=== PATIENT | female | born 1960 | race African-American/Black ===

== ENCOUNTER 2017-01-03 13:28 | Inpatient (IN) | payer MEDICAID ==
[~2017-01-03] VITALS: Ht 162.6 cm; Wt 97.2 kg
--- NOTE | 2017-01-03 13:43 | PHYS DOC ---
Past Medical History Past Medical History: Anxiety, Constipation, GERD, High Cholesterol, Hypertension, Hypothyroid, Schizophrenia Past Surgical History: No Surgical History Alcohol Use: None Drug Use: None Adult General Chief Complaint Chief Complaint: ALTERED MENTAL STATUS HPI HPI Patient is a 56 year old female who presents with complaint of a syncopal episode that took place prior to arrival. The patient was brought to the emergency department by EMS after patient was found to be unresponsive while at lunch less than 1 hour prior to arrival. Patient came from her skilled nursing where she is currently cared for. The patient was at her baseline mental status immediately prior to the episode. Patient states that she remembers being at lunch but does not remember anything until she came to in the EMS vehicle just prior to arrival. Patient denied any associated chest pain with her symptoms. Patient states that she feels tired but knows where she is at this time. Patient states that she had similar episodes when she was very young but has not had anything like this happened in several years. Review of Systems Review of Systems Constitutional: Generalized fatigue, denies fever or chills [] Eyes: Denies change in visual acuity, redness, or eye pain [] HENT: Denies nasal congestion or sore throat [] Respiratory: Denies cough or shortness of breath [] Cardiovascular: Syncope, denies chest pain or edema [] GI: Denies abdominal pain, nausea, vomiting, bloody stools or diarrhea [] : Denies dysuria or hematuria [] Musculoskeletal: Denies back pain or joint pain [] Integument: Denies rash or skin lesions [] Neurologic: Denies headache, focal weakness or sensory changes [] Current Medications Current Medications Current Medications Medications (Trade) Dose Ordered Sig/Horace Start Time Stop Time Status Last Admin Dose Admin Sodium Chloride 1,000 ml @ 1,000 mls/hr 1X ONCE 01/03/17 14:30 01/03/17 15:29 DC 01/03/17 14:17 1,000 MLS/HR Allergies Allergies Allergies Coded Allergies Type Severity Reaction Last Updated Verified haloperidol Allergy Intermediate UNKNOWN 11/09/15 Yes iron dextran complex Allergy Intermediate UNKNOWN 11/09/15 Yes Physical Exam Physical Exam Constitutional: Alert, afebrile, no acute distress. [] HENT: Normocephalic, atraumatic, bilateral external ears normal, oropharynx moist, no oral exudates, nose normal. [] Eyes: PERRLA, chronic strabismus present, conjunctiva normal, no discharge. [] Neck: Normal range of motion, no tenderness, supple, no stridor. [] Cardiovascular:Heart rate regular rhythm, no murmur [] Lungs & Thorax: Bilateral breath sounds clear to auscultation [] Abdomen: Bowel sounds normal, soft, no tenderness, no masses, no pulsatile masses. [] Skin: Warm, dry, no erythema, no rash. [] Back: No tenderness, no CVA tenderness. [] Extremities: No tenderness, no cyanosis, no clubbing, ROM intact, no edema. [] Neurologic: Alert and oriented X 3, normal motor function, normal sensory function, no focal deficits noted. [] Current Patient Data Vital Signs Vital Signs Date Time Temp Pulse Resp B/P (MAP) Pulse Ox O2 Delivery O2 Flow Rate FiO2 01/03/17 13:49 98.6 90 16 84/70 (75) 97 Room Air 98.6 Lab Values Laboratory Tests Test 01/03/17 14:14 White Blood Count 3.7 x10^3/uL (4.0-11.0) L Red Blood Count 4.62 x10^6/uL (3.50-5.40) Hemoglobin 10.5 g/dL (12.0-15.5) L Hematocrit 33.9 % (36.0-47.0) L Mean Corpuscular Volume 73 fL (79-100) L Mean Corpuscular Hemoglobin 23 pg (25-35) L Mean Corpuscular Hemoglobin Concent 31 g/dL (31-37) Red Cell Distribution Width 16.5 % (11.5-14.5) H Platelet Count 152 x10^3/uL (140-400) Neutrophils (%) (Auto) 62 % (31-73) Lymphocytes (%) (Auto) 25 % (24-48) Monocytes (%) (Auto) 13 % (0-9) H Eosinophils (%) (Auto) 0 % (0-3) Basophils (%) (Auto) 0 % (0-3) Neutrophils # (Auto) 2.3 x10^3uL (1.8-7.7) Lymphocytes # (Auto) 0.9 x10^3/uL (1.0-4.8) L Monocytes # (Auto) 0.5 x10^3/uL (0.0-1.1) Eosinophils # (Auto) 0.0 x10^3/uL (0.0-0.7) Basophils # (Auto) 0.0 x10^3/uL (0.0-0.2) Platelet Estimate Pending Urine Collection Type U cath Urine Color Patrica Urine Clarity Clear Urine pH 5.5 Urine Specific [place] 1.020 Urine Protein 100 mg/dL (NEG-TRACE) Urine Glucose (UA) Negative mg/dL (NEG) Urine Ketones (Stick) Trace mg/dL (NEG) Urine Blood Large (NEG) Urine Nitrite Negative (NEG) Urine Bilirubin Small (NEG) Urine Urobilinogen Dipstick 0.2 mg/dL (0.2 mg/dL) Urine Leukocyte Esterase Small (NEG) Urine RBC >40 /HPF (0-2) Urine WBC 1-4 /HPF (0-4) Urine Squamous Epithelial Cells Mod /LPF Urine Transitional Epithelial Cells Few /LPF Urine Bacteria 0 /HPF (0-FEW) Urine Hyaline Casts Moderate /HPF Urine Mucus Mod /LPF Sodium Level 140 mmol/L (136-145) Potassium Level 4.3 mmol/L (3.5-5.1) Chloride Level 108 mmol/L (98-107) H Carbon Dioxide Level 23 mmol/L (21-32) Anion Gap 9 (6-14) Blood Urea Nitrogen 23 mg/dL (7-20) H Creatinine 1.9 mg/dL (0.6-1.0) H Estimated GFR (Cockcroft-Gault) 33.1 BUN/Creatinine Ratio 12 (6-20) Glucose Level 93 mg/dL (70-99) Calcium Level 9.2 mg/dL (8.5-10.1) Magnesium Level 1.5 mg/dL (1.8-2.4) L Total Bilirubin 0.1 mg/dL (0.2-1.0) L Aspartate Amino Transferase (AST) 11 U/L (15-37) L Alanine Aminotransferase (ALT) 12 U/L (14-59) L Alkaline Phosphatase 57 U/L (46-116) Creatine Kinase 90 U/L (26-192) Creatine Kinase MB (Mass) < 0.5 ng/mL (0.0-3.6) Creatine Kinase MB Relative Index 0.6 % (0-4) Troponin I Quantitative < 0.017 ng/mL (0.000-0.055) Total Protein 6.8 g/dL (6.4-8.2) Albumin 2.5 g/dL (3.4-5.0) L Albumin/Globulin Ratio 0.6 (1.0-1.7) L Laboratory Tests 01/03/17 14:14 Laboratory Tests 01/03/17 14:14 EKG EKG Interpreted by me: Heart rate 89, sinus rhythm, normal intervals, normal axis, no acute ST/T-wave abnormalities present [] Radiology/Procedures Radiology/Procedures [facility] [address] [place] [address] IMAGING REPORT Signed PATIENT: AVI VILLEGAS ACCOUNT: [id number] : 1960 LOCATION: ER AGE: 56 SEX: F EXAM STATUS: PRE ER ORD. PHYSICIAN: CRISTINE ALDANA MD REASON: syncope PROCEDURE: PORTABLE CHEST 1V Indication syncopal episode. A single view of the chest was obtained. No previous imaging of the chest is available. The heart and pulmonary vessels are within normal limits. There is no focal infiltrate. There is no pneumothorax. Bony structures appear grossly intact. IMPRESSION: No acute or focal process is seen in the chest DICTATED and SIGNED BY: AMARA WHITE MD DATE: 01/03/17 1424 CC: CRISTINE ALDANA MD; SAGAR CHURCH [] Course & Med Decision Making Course & Med Decision Making Pertinent Labs and Imaging studies reviewed. (See chart for details) Patient was given IV fluids in the emergency department. Patient was found to have decreased magnesium levels and was supplemented with IV magnesium. Patient also found to have renal insufficiency. The patient had a significant syncopal episode with prolonged loss of consciousness with no prior history of heart trouble. The patient will need admission to the hospital for continued monitoring and cardiology consult. I spoke with Dr. Leroy who accepted care patient in hospital. Dragon Disclaimer Dragon Disclaimer This electronic medical record was generated, in whole or in part, using a voice recognition dictation system. Departure Departure Impression: Primary Impression: Syncope Additional Impressions: Hypomagnesemia Renal insufficiency Severe protein-calorie malnutrition Disposition: ADMITTED INPATIENT Admitting Physician: Jessica Leroy Condition: STABLE Referrals: SAGAR CHURCH (PCP) Problem Qualifiers Primary Impression: Syncope Syncope type: unspecified Qualified Codes: R55 - Syncope and collapse CRISTINE ALDANA MD Jan 03, 2017 13:43
[2017-01-03 14:27] LABS: BASO % 0 % (0-3); EOS % 0 % (0-3); HEMATOCRIT 33.9 % (36.0-47.0); HEMOGLOBIN 10.5 g/dL (12.0-15.5); LYMPH # 0.9 x10^3/uL (1.0-4.8); LYMPH % 25 % (24-48); MEAN CORPUSCULAR HEMOGLOBIN 23 pg (25-35); MEAN CORPUSCULAR HGB CONC 31 g/dL (31-37); MEAN CORPUSCULAR VOLUME 73 fL (79-100); MONO % 13 % (0-9); NEUT % 62 % (31-73); PLATELET COUNT 152 x10^3/uL (140-400); RED BLOOD COUNT 4.62 x10^6/uL (3.50-5.40); RED CELL DISTRIBUTION WIDTH 16.5 % (11.5-14.5); WHITE BLOOD COUNT 3.7 x10^3/uL (4.0-11.0)
--- NOTE | 2017-01-03 14:28 | RAD ---
Indication syncopal episode. A single view of the chest was obtained. No previous imaging of the chest is available. The heart and pulmonary vessels are within normal limits. There is no focal infiltrate. There is no pneumothorax. Bony structures appear grossly intact. IMPRESSION: No acute or focal process is seen in the chest
[2017-01-03] MEDS ORDERED: IV NORMAL SALINE 1000ML BAG 1,000 ML IV ONE (14:30)
--- NOTE | 2017-01-03 14:41 | EKG ---
[facility] [address] [place] [address] Test Date: 2017-01-03 Test Time: 13:36:43 Pat Name: AVI VILLEGAS Department: Room: Gender: F Furnace Maintenance: : 1960 Requested By: CRISTINE ALDANA Order Number: [id number] Reading MD: Measurements Intervals [place] Rate: 89 P: 69 ND: 136 QRS: 69 QRSD: 72 T: 34 QT: 344 QTc: 420 Interpretive Statements SINUS RHYTHM LEFT ATRIAL ABNORMALITY QRS(T) CONTOUR ABNORMALITY CONSISTENT WITH ANTEROSEPTAL INFARCT AGE UNDETERMINED RI6.01 Unconfirmed report No previous ECG available for comparison
[2017-01-03 14:44] LABS: CALCIUM 9.2 mg/dL (8.5-10.1); CREATININE 1.9 mg/dL (0.6-1.0); GFR 33.1; POTASSIUM 4.3 mmol/L (3.5-5.1)
[2017-01-03 14:48] LABS: BILIRUBIN,URINE SMALL (NEG); GLUCOSE,URINE NEGATIVE (NEG); NITRITE,URINE NEGATIVE (NEG); PH,URINE 5.5; PROTEIN,URINE 100 mg/dL (NEG-TRACE); UROBILINOGEN,URINE 0.2 mg/dL (0.2 mg/dL)
[2017-01-03 14:50] LABS: ALBUMIN 2.5 g/dL (3.4-5.0); ALBUMIN/GLOBULIN RATIO 0.6 (1.0-1.7); MAGNESIUM 1.5 mg/dL (1.8-2.4); TOTAL BILIRUBIN 0.1 mg/dL (0.2-1.0); TOTAL PROTEIN 6.8 g/dL (6.4-8.2)
[2017-01-03 14:58] LABS: BACTERIA,URINE 0 /HPF (0-FEW); CREATINE KINASE 90 U/L (26-192); RBC,URINE >40 /HPF (0-2); SQUAMOUS EPITHELIAL CELL,UR MOD /LPF
[2017-01-03 15:03] LABS: CKMB MASS < 0.5 ng/mL (0.0-3.6)
[2017-01-03] MEDS ORDERED: ACETAMINOPHEN 325 MG TABLET. PO PRN ×2 (16:30→18:30)
[2017-01-03] MEDS ORDERED: MAGNESIUM SULFATE 1GM 100 ML IV ONE (16:30)
[2017-01-03] MEDS ORDERED: ONDANSETRON PF 4 MG/2 ML VIAL. IV PRN ×2 (16:30)
--- NOTE | 2017-01-03 16:40 | PDOC1 ---
History and Physical Date of Admission Date of Admission DATE: 01/03/17 TIME: 16:30 Identification/Chief Complaint Chief Complaint passed out while eating lemon chicken at SNU Problems: Source Source: Caregiver, Chart review, Patient History of Present Illness History of Present Illness 56 y.o AA female, with exotropia since childhood yrs, Resident of [facility], was eating lemon chicken for lunch today then passed out,. BP was 88/56 by EMS in the field,was barely responsive, they had to sternal rub and put LMA mask, and that's when the device seemed to gag her and she regained consciousness. She is now eating a sandwich at ER, lung sounds sounds fine, NObody bedside, not best historian but can be reliable, MIght have happened before? but not in the background of a meal, looking at meds on AEds. MEntions hx of SZ, unable to describe SZ activity, but sounds like there is LOC when this happens, last episode maybe a yr ago?? again not the best historian, LAbs look ok Denies aura or any sxs pre syncope, claims when she woke to, she was fuzzy and already in ambulance, NO headache, etc currently Past Medical History Cardiovascular: Syncope Pulmonary: Bronchitis CENTRAL NERVOUS SYSTEM: Seizure Past Surgical History Past Surgical History: No pertinent history Family History Family History: Family History Unknown Social History Smoke: No ALCOHOL: none Drugs: None Current Problem List Problem List Problems Medical Problems: (1) Hypomagnesemia Status: Acute (2) Renal insufficiency Status: Acute (3) Severe protein-calorie malnutrition Status: Acute Problems: Current Medications Current Medications Current Medications Sodium Chloride 1,000 ml @ 1,000 mls/hr 1X ONCE IV Last administered on t 14:17; Start 01/03/17 at 14:30; Stop 01/03/17 at 15:29; Status DC Magnesium Sulfate/ Dextrose 100 ml @ 100 mls/hr 1X ONCE IV ; Start 01/03/17 at 16:30; Stop 01/03/17 at 17:29 Ondansetron HCl (Zofran) 4 mg PRN Q8HRS PRN IV NAUSEA/VOMITING; Start 01/03/17 at 16:30; Stop 01/04/17 at 16:29 Sodium Chloride 1,000 ml @ 100 mls/hr Q10H IV ; Start 01/03/17 at 16:21; Stop at 16:20 Acetaminophen (Tylenol) 650 mg PRN Q4HRS PRN PO FEVER; Start 01/03/17 at 16:30; Stop 01/04/17 at 16:29 Allergies Allergies: Coded Allergies: haloperidol (Verified Allergy, Intermediate, UNKNOWN, 11/09/15) iron dextran complex (Verified Allergy, Intermediate, UNKNOWN, 11/09/15) ROS Review of System denies 14 pt system, reviewed Physical Exam General: Alert, Oriented X3, Cooperative, No acute distress HEENT: Other (RT exotropia, external and upward) Lungs: Clear to auscultation, Normal air movement Heart: S1S2, RRR, no thrills, no rubs, no gallops, murmurs Cardiovascular: S1, S2 Breasts: Normal, Rt breast nml w/o mass, Lt breast nml w/o mass, Nipples normal Abdomen: Normal bowel sounds, Soft, No tenderness, No hepatosplenomegaly, No masses Rectal Exam: not examined PELVIC: Nml ext genitalia Extremities: No clubbing, No cyanosis, No edema, Normal pulses, No tenderness/ swelling Skin: No rashes, No breakdown, No significant lesion Neuro: Normal gait, Normal speech, Strength at 5/5 X4 ext, Normal tone, Sensation intact, Cranial nerves 3-12 NL, Reflexes 2+ Psych/Mental Status: Mental status NL, Mood NL Vitals Vitals Vital Signs Date Time Temp Pulse Resp B/P (MAP) Pulse Ox O2 Delivery O2 Flow Rate FiO2 01/03/17 13:49 98.6 90 16 84/70 (75) 97 Room Air 98.6 Labs Labs Laboratory Tests Test 01/03/17 14:14 White Blood Count 3.7 x10^3/uL (4.0-11.0) Red Blood Count 4.62 x10^6/uL (3.50-5.40) Hemoglobin 10.5 g/dL (12.0-15.5) Hematocrit 33.9 % (36.0-47.0) Mean Corpuscular Volume 73 fL (79-100) Mean Corpuscular Hemoglobin 23 pg (25-35) Mean Corpuscular Hemoglobin Concent 31 g/dL (31-37) Red Cell Distribution Width 16.5 % (11.5-14.5) Platelet Count 152 x10^3/uL (140-400) Neutrophils (%) (Auto) 62 % (31-73) Lymphocytes (%) (Auto) 25 % (24-48) Monocytes (%) (Auto) 13 % (0-9) Eosinophils (%) (Auto) 0 % (0-3) Basophils (%) (Auto) 0 % (0-3) Neutrophils # (Auto) 2.3 x10^3uL (1.8-7.7) Lymphocytes # (Auto) 0.9 x10^3/uL (1.0-4.8) Monocytes # (Auto) 0.5 x10^3/uL (0.0-1.1) Eosinophils # (Auto) 0.0 x10^3/uL (0.0-0.7) Basophils # (Auto) 0.0 x10^3/uL (0.0-0.2) Urine Collection Type U cath Urine Color Patrica Urine Clarity Clear Urine pH 5.5 Urine Specific [place] 1.020 Urine Protein 100 mg/dL (NEG-TRACE) Urine Glucose (UA) Negative mg/dL (NEG) Urine Ketones (Stick) Trace mg/dL (NEG) Urine Blood Large (NEG) Urine Nitrite Negative (NEG) Urine Bilirubin Small (NEG) Urine Urobilinogen Dipstick 0.2 mg/dL (0.2 mg/dL) Urine Leukocyte Esterase Small (NEG) Urine RBC >40 /HPF (0-2) Urine WBC 1-4 /HPF (0-4) Urine Squamous Epithelial Cells Mod /LPF Urine Transitional Epithelial Cells Few /LPF Urine Bacteria 0 /HPF (0-FEW) Urine Hyaline Casts Moderate /HPF Urine Mucus Mod /LPF Sodium Level 140 mmol/L (136-145) Potassium Level 4.3 mmol/L (3.5-5.1) Chloride Level 108 mmol/L (98-107) Carbon Dioxide Level 23 mmol/L (21-32) Anion Gap 9 (6-14) Blood Urea Nitrogen 23 mg/dL (7-20) Creatinine 1.9 mg/dL (0.6-1.0) Estimated GFR (Cockcroft-Gault) 33.1 BUN/Creatinine Ratio 12 (6-20) Glucose Level 93 mg/dL (70-99) Calcium Level 9.2 mg/dL (8.5-10.1) Magnesium Level 1.5 mg/dL (1.8-2.4) Total Bilirubin 0.1 mg/dL (0.2-1.0) Aspartate Amino Transf (AST/SGOT) 11 U/L (15-37) Alanine Aminotransferase (ALT/SGPT) 12 U/L (14-59) Alkaline Phosphatase 57 U/L (46-116) Creatine Kinase 90 U/L (26-192) Creatine Kinase MB (Mass) < 0.5 ng/mL (0.0-3.6) Creatine Kinase MB Relative Index 0.6 % (0-4) Troponin I Quantitative < 0.017 ng/mL (0.000-0.055) Total Protein 6.8 g/dL (6.4-8.2) Albumin 2.5 g/dL (3.4-5.0) Albumin/Globulin Ratio 0.6 (1.0-1.7) Laboratory Tests Test 01/03/17 14:14 White Blood Count 3.7 x10^3/uL (4.0-11.0) Red Blood Count 4.62 x10^6/uL (3.50-5.40) Hemoglobin 10.5 g/dL (12.0-15.5) Hematocrit 33.9 % (36.0-47.0) Mean Corpuscular Volume 73 fL (79-100) Mean Corpuscular Hemoglobin 23 pg (25-35) Mean Corpuscular Hemoglobin Concent 31 g/dL (31-37) Red Cell Distribution Width 16.5 % (11.5-14.5) Platelet Count 152 x10^3/uL (140-400) Neutrophils (%) (Auto) 62 % (31-73) Lymphocytes (%) (Auto) 25 % (24-48) Monocytes (%) (Auto) 13 % (0-9) Eosinophils (%) (Auto) 0 % (0-3) Basophils (%) (Auto) 0 % (0-3) Neutrophils # (Auto) 2.3 x10^3uL (1.8-7.7) Lymphocytes # (Auto) 0.9 x10^3/uL (1.0-4.8) Monocytes # (Auto) 0.5 x10^3/uL (0.0-1.1) Eosinophils # (Auto) 0.0 x10^3/uL (0.0-0.7) Basophils # (Auto) 0.0 x10^3/uL (0.0-0.2) Urine Collection Type U cath Urine Color Patrica Urine Clarity Clear Urine pH 5.5 Urine Specific [place] 1.020 Urine Protein 100 mg/dL (NEG-TRACE) Urine Glucose (UA) Negative mg/dL (NEG) Urine Ketones (Stick) Trace mg/dL (NEG) Urine Blood Large (NEG) Urine Nitrite Negative (NEG) Urine Bilirubin Small (NEG) Urine Urobilinogen Dipstick 0.2 mg/dL (0.2 mg/dL) Urine Leukocyte Esterase Small (NEG) Urine RBC >40 /HPF (0-2) Urine WBC 1-4 /HPF (0-4) Urine Squamous Epithelial Cells Mod /LPF Urine Transitional Epithelial Cells Few /LPF Urine Bacteria 0 /HPF (0-FEW) Urine Hyaline Casts Moderate /HPF Urine Mucus Mod /LPF Sodium Level 140 mmol/L (136-145) Potassium Level 4.3 mmol/L (3.5-5.1) Chloride Level 108 mmol/L (98-107) Carbon Dioxide Level 23 mmol/L (21-32) Anion Gap 9 (6-14) Blood Urea Nitrogen 23 mg/dL (7-20) Creatinine 1.9 mg/dL (0.6-1.0) Estimated GFR (Cockcroft-Gault) 33.1 BUN/Creatinine Ratio 12 (6-20) Glucose Level 93 mg/dL (70-99) Calcium Level 9.2 mg/dL (8.5-10.1) Magnesium Level 1.5 mg/dL (1.8-2.4) Total Bilirubin 0.1 mg/dL (0.2-1.0) Aspartate Amino Transf (AST/SGOT) 11 U/L (15-37) Alanine Aminotransferase (ALT/SGPT) 12 U/L (14-59) Alkaline Phosphatase 57 U/L (46-116) Creatine Kinase 90 U/L (26-192) Creatine Kinase MB (Mass) < 0.5 ng/mL (0.0-3.6) Creatine Kinase MB Relative Index 0.6 % (0-4) Troponin I Quantitative < 0.017 ng/mL (0.000-0.055) Total Protein 6.8 g/dL (6.4-8.2) Albumin 2.5 g/dL (3.4-5.0) Albumin/Globulin Ratio 0.6 (1.0-1.7) VTE Prophylaxis Ordered VTE Prophylaxis Devices: Yes VTE Pharmacological Prophylaxi: Yes Assessment/Plan Assessment/Plan 1. Syncope and collapse, likely vagal after a meal, r.o other potential causes ( SZ, arrhythmia etc) 2. Sz hx on AED 3. SNU resident 4. Obesity BMI 43 5, MOD PCM 6. HYpotension, transient post syncope PLAN: Admit Would check a baseline CT head I am awaiting home meds, noteworthy to check levels of AEDs, if I get to see her home meds, make sure they are therapeutic PT/OT Cards consulted for syncope work up WOF aspiration signs, so far none of that, so I am ok with reg diet Seen at ER 2, dw ER VIRGINIA Valera MD Jan 03, 2017 16:40
[2017-01-03] MEDS: IV NORMAL SALINE 1000ML BAG 1,000 ML IV SCH ×2 (16:44→22:09)
[2017-01-03] MEDS ORDERED: MAGNESIUM SULFATE 2GM 50 ML IV ONE (16:45)
[2017-01-03 16:53] LABS: ANISOCYTOSIS SLIGHT; HYPOCHROMIA MOD; MICROCYTOSIS SLIGHT; PLT ESTIMATE ADEQUATE (ADEQUATE); POLYCHROMASIA SLIGHT
--- NOTE | 2017-01-03 17:13 | RAD ---
EXAM: CT head without contrast HISTORY: SYNCOPE, SEIZURE HX. PREVIOUS 11/09/15. COMPARISON: November 09, 2015 TECHNIQUE: Computed tomographic images of the head were obtained without contrast. RS compliance statement: One or more of the following individualized dose reduction techniques were utilized for this examination: 1. Automated exposure control 2. Adjustment of the mA and/or kV according to patient size 3. Use of iterative reconstruction technique FINDINGS: There is no acute intracranial process identified. Specifically, there are no intracranial blood products, extra-axial fluid collections, mass effect or midline shift. Ventricles and basilar cisterns are maintained. The visualized portions of the orbits, paranasal sinuses and mastoid air cells are unremarkable. No suspicious calvarial lesion is seen. IMPRESSION: No acute intracranial findings. Electronically signed by: Leanna Torre MD (01/03/2017 5:10 PM) [facility]
[2017-01-03 17:30] VITALS: BP 148/99
[2017-01-03 17:55] VITALS: BP 148/99
[2017-01-03] MEDS ORDERED: MAGNESIUM HYDROXIDE 2,400 MG/30 ML ORAL.SUSP. PO PRN (18:30)
[2017-01-03] MEDS ORDERED: clonazePAM 1 MG TABLET PO PRN (18:30)
[2017-01-03] MEDS ORDERED: CLON1TAB3 PO (18:38)
[2017-01-03] MEDS ORDERED: LEVO75TA5 PO (18:38)
[2017-01-03] MEDS ORDERED: ASPI-630 PO (18:38)
[2017-01-03] MEDS ORDERED: GUAI-66 PO (18:38)
[2017-01-03] MEDS ORDERED: ACET325T9 PO (18:38)
[2017-01-03] MEDS ORDERED: CLON2TAB2 PO (18:38)
[2017-01-03] MEDS ORDERED: LOPE2TAB56 PO (18:46)
[2017-01-03] MEDS ORDERED: RISP4TAB35 PO (18:46)
[2017-01-03] MEDS ORDERED: MULT1TAB52 PO (18:46)
[2017-01-03] MEDS ORDERED: MAGN400O7 PO (18:46)
[2017-01-03] MEDS ORDERED: SIME125C65 PO (18:46)
[2017-01-03] MEDS ORDERED: TOPI100T42 PO (18:47)
[2017-01-03] MEDS ORDERED: VALP250S4 PO (18:48)
[2017-01-03] MEDS ORDERED: FAMO-63 PO (18:51)
[2017-01-03] MEDS ORDERED: RISP37.5 IM (18:51)
[2017-01-03] MEDS ORDERED: MAG355OR11 PO (18:57)
[2017-01-03] MEDS ORDERED: MAG HYDROX/ALUMINUM HYD/SIMETH 30 ML ORAL.SUSP PO PRN (19:15)
[2017-01-03 19:25] VITALS: BP 150/87
[2017-01-03] MEDS ORDERED: LOPERAMIDE 2 MG CAPSULE PO PRN (19:30)
[2017-01-03] MEDS ORDERED: NYSTATIN TOPICAL POWDER 15GM BOTTLE. TP PRN (19:30)
[2017-01-03] MEDS: VALPROIC ACID (AS SODIUM SALT) 250 MG/5 ML SOLUTION. PO SCH (22:05)
[2017-01-03] MEDS: risperiDONE 1 MG TABLET. PO SCH (22:05)
[2017-01-03] MEDS: TOPIRAMATE 100 MG TABLET. PO SCH (22:06)
[2017-01-03] MEDS: clonazePAM 1 MG TABLET PO SCH (22:06)
[2017-01-03] MEDS: ENOXAPARIN 40 MG/0.4 ML SYRINGE. SQ SCH (22:07)
[2017-01-03 23:30] VITALS: BP 148/85
[2017-01-04 03:30] VITALS: BP 151/65
--- NOTE | 2017-01-04 04:14 | ACF ---
Admission Forms Criteria SYNCOPE Clinical Indications for Admission to Inpatient Care ( Place 'X' for any and all applicable criteria): Admission is indicated for syncope and ANY ONE of the following (1)(2)(3)(4)(5) (6)(7) : [X]I. Inpatient admission required rather than observation care (Also use Syncope: Observation Care Criteria as appropriate) because of ANY ONE of the following: [ ]a) Hemodynamic instability that is severe or persistent [ ]b) Cardiac arrhythmias of immediate concern identified or strongly suspected (eg, needs electrophysiologic study) [ ]c) Acute coronary syndrome identified (Also use Myocardial Infarction or Angina Criteria form ) [ ]d) Structural cardiac disorder (eg, aortic stenosis) suspected as cause that requires immediate correction [ ]e) Respiratory symptoms (eg, dyspnea, tachypnea) that are severe or persistent [X]f) Neurologic signs or symptoms that are severe or persistent ( eg, stroke, seizures, altered mental status) [ ]g) Severe electrolyte abnormalities requiring inpatient care [ ]h) Supplemental oxygen or respiratory treatment for over 24 hrs that are performable only in acute inpatient setting [ ]i) IV fluid to replace significant ongoing (eg, for over 24 hrs ) losses (>3 L/m2 per day) [ ]j) Continuous intravenous infusion of anticoagulation, platelet inhibitor, vasoactive, or antiarrhythmic medication(15)(16) [ ]k) Pulmonary artery catheter monitoring [ ]l) Temporary pacemaker placement(17) [ ]m) Emergent cardioversion(18) [ ]n) Other conditions, treatment or monitoring requiring inpatient admission [ ]II. Suspicion of imminently dangerous cause (eg, rare causes like pericardial tamponade, pulmonary embolism) [ ]III. Syncope causing severe injury requiring hospitalization Extended stay beyond goal length of stay may be needed for(28) [ ]a) Dangerous arrhythmia(15)(23)(27)(29) [ ]b) Myocardial ischemia [ ]c) Seizure disorder [ ]d) Syncope-related injuries The original [employer] content created by [employer] has been revised. The portions of the content which have been revised are identified through the use of italic text or in bold, and [employer] has neither reviewed nor approved the modified material. All other unmodified content is copyright [employer]: turn off the lights. Please see references footnoted in the original [facility] edition 2016 Admission Criteria Met?: Yes LUIS MIGUEL HILLMAN Jan 04, 2017 04:14
[2017-01-04 04:52] LABS: BASO % 0 % (0-3); EOS % 0 % (0-3); HEMATOCRIT 33.4 % (36.0-47.0); HEMOGLOBIN 10.2 g/dL (12.0-15.5); LYMPH # 1.6 x10^3/uL (1.0-4.8); LYMPH % 44 % (24-48); MEAN CORPUSCULAR HEMOGLOBIN 23 pg (25-35); MEAN CORPUSCULAR HGB CONC 31 g/dL (31-37); MEAN CORPUSCULAR VOLUME 75 fL (79-100); MONO % 9 % (0-9); NEUT % 47 % (31-73); PLATELET COUNT 143 x10^3/uL (140-400); RED BLOOD COUNT 4.47 x10^6/uL (3.50-5.40); WHITE BLOOD COUNT 3.7 x10^3/uL (4.0-11.0)
[2017-01-04 05:06] LABS: CREATININE 1.6 mg/dL (0.6-1.0); GFR 40.3; POTASSIUM 4.9 mmol/L (3.5-5.1)
[2017-01-04] MEDS: LEVOTHYROXINE 75 MCG TABLET PO SCH (06:04)
[2017-01-04 07:00] VITALS: BP 154/84
[2017-01-04] MEDS: FAMOTIDINE 20 MG TABLET. PO SCH (09:28)
[2017-01-04] MEDS: risperiDONE 1 MG TABLET. PO SCH ×2 (09:28→21:27)
[2017-01-04] MEDS: TOPIRAMATE 100 MG TABLET. PO SCH ×2 (09:28→21:27)
[2017-01-04] MEDS: IV NORMAL SALINE 1000ML BAG 1,000 ML IV SCH (09:28)
[2017-01-04] MEDS: NYSTATIN TOPICAL POWDER 15GM BOTTLE. TP SCH (09:28)
[2017-01-04] MEDS: ASPIRIN CHEWABLE 81 MG TABLET. PO SCH (09:29)
[2017-01-04] MEDS: MULTIVITAMIN with MINERAL TABLET. PO SCH (09:29)
[2017-01-04] MEDS: ENOXAPARIN 40 MG/0.4 ML SYRINGE. SQ SCH (09:31)
--- NOTE | 2017-01-04 09:32 | PDOC2 ---
CAROLE ENGLAND FLOORING HELPER 01/04/17 0932: CARDIAC CONSULT DATE OF CONSULT Date of Consult DATE: 01/04/17 TIME: 09:24 REASON FOR CONSULT Reason for Consult: Syncope REFERRING PHYSICIAN Referring Physician: Dr. Kaba SOURCE Source: Chart review, Patient HISTORY OF PRESENT ILLNESS HISTORY OF PRESENT ILLNESS This is a 56 yo female who presented from nursing facility secondary to a syncopal event. Had lemon pepper chicken with garlic for lunch. Reports " falling out after eating because of the garlic." Was sitting at the dinner table. States she cannot have garlic because it makes her "pass out." EMS was called by facility staff. Patient denies experiencing any chest pain, palpitations, dizziness, diaphoresis, or nausea/vomiting. PAST MEDICAL HISTORY Cardiovascular: HTN, Hyperlipidemia Pulmonary: No pertinent hx CENTRAL NERVOUS SYSTEM: Other (extrapyramidal syndrome, intellectual disability ) GI: GERD Heme/Onc: No pertinent hx Hepatobiliary: No pertinent hx Psych: Anxiety, Depression, Schizophrenia Rheumatologic: No pertinent hx Infectious disease: No pertinent hx ENT: No pertinent hx Renal/: No pertinent hx Endocrine: Hypothyroidism Dermatology: No pertinent hx PAST SURGICAL HISTORY Past Surgical History: No pertinent history FAMILY HISTORY Family History: Family History Unknown SOCIAL HISTORY Smoke: No ALCOHOL: none Drugs: None Lives: Sn[facility] CURRENT MEDICATIONS CURRENT MEDICATIONS Current Medications Medications (Trade) Dose Ordered Sig/Horace Route PRN Reason Start Time Stop Time Status Last Admin Dose Admin Sodium Chloride 1,000 ml @ 1,000 mls/hr 1X ONCE IV 01/03/17 14:30 01/03/17 15:29 DC 01/03/17 14:17 Magnesium Sulfate/ Dextrose 100 ml @ 100 mls/hr 1X ONCE IV 01/03/17 16:30 01/03/17 17:29 DC 01/03/17 16:44 Sodium Chloride 1,000 ml @ 100 mls/hr Q10H IV 01/03/17 16:21 01/04/17 16:20 01/03/17 22:09 Acetaminophen (Tylenol) 650 mg PRN Q4HRS PRN PO FEVER 01/03/17 16:30 01/04/17 16:29 01/03/17 22:05 Magnesium Sulfate/ Dextrose 50 ml @ 25 mls/hr 1X ONCE IV 01/03/17 16:45 01/03/17 18:44 DC 01/03/17 21:00 Enoxaparin Sodium (Lovenox 40mg Syringe) 40 mg Q12HR SQ 01/03/17 21:00 01/03/17 22:07 Levothyroxine Sodium (Synthroid) 75 mcg DAILY07 PO 01/04/17 07:00 01/04/17 06:04 Topiramate (Topamax) 100 mg BID PO 01/03/17 21:00 01/03/17 22:06 Valproic Acid (Depakene) 750 mg BID PO 01/03/17 21:00 01/03/17 22:05 Clonazepam (KlonoPIN) 2 mg BID PO 01/03/17 21:00 01/03/17 22:06 Risperidone (RisperDAL) 4 mg BID PO 01/03/17 21:00 01/03/17 22:05 ALLERGIES ALLERGIES: Coded Allergies: haloperidol (Verified Allergy, Intermediate, UNKNOWN, 11/09/15) iron dextran complex (Verified Allergy, Intermediate, UNKNOWN, 11/09/15) ROS Review of System 14 point ROS conducted with pertinent positives noted above in HPI. PHYSICAL EXAM General: Alert, Oriented X3, Cooperative, No acute distress HEENT: Atraumatic, Mucous membr. moist/pink, Other (strabismus) Heart: Regular rate, Normal S1, Normal S2, Other (soft systolic murmur ) Abdomen: Soft, No tenderness Extremities: No edema, Normal pulses Skin: No breakdown, No significant lesion Neuro: Normal speech, Sensation intact Psych/Mental Status: Mood NL, Other (alert, appropriate) MUSCULOSKELETAL: No joint tenderness VITALS VITALS Vital Signs Date Time Temp Pulse Resp B/P (MAP) Pulse Ox O2 Delivery O2 Flow Rate FiO2 01/04/17 07:00 98.2 73 20 154/84 (107) 98 Room Air 98.2 LABS Lab: Laboratory Tests Test 01/03/17 14:14 01/04/17 03:30 White Blood Count 3.7 x10^3/uL (4.0-11.0) 3.7 x10^3/uL (4.0-11.0) Red Blood Count 4.62 x10^6/uL (3.50-5.40) 4.47 x10^6/uL (3.50-5.40) Hemoglobin 10.5 g/dL (12.0-15.5) 10.2 g/dL (12.0-15.5) Hematocrit 33.9 % (36.0-47.0) 33.4 % (36.0-47.0) Mean Corpuscular Volume 73 fL (79-100) 75 fL (79-100) Mean Corpuscular Hemoglobin 23 pg (25-35) 23 pg (25-35) Mean Corpuscular Hemoglobin Concent 31 g/dL (31-37) 31 g/dL (31-37) Red Cell Distribution Width 16.5 % (11.5-14.5) 17.0 % (11.5-14.5) Platelet Count 152 x10^3/uL (140-400) 143 x10^3/uL (140-400) Neutrophils (%) (Auto) 62 % (31-73) 47 % (31-73) Lymphocytes (%) (Auto) 25 % (24-48) 44 % (24-48) Monocytes (%) (Auto) 13 % (0-9) 9 % (0-9) Eosinophils (%) (Auto) 0 % (0-3) 0 % (0-3) Basophils (%) (Auto) 0 % (0-3) 0 % (0-3) Neutrophils # (Auto) 2.3 x10^3uL (1.8-7.7) 1.7 x10^3uL (1.8-7.7) Lymphocytes # (Auto) 0.9 x10^3/uL (1.0-4.8) 1.6 x10^3/uL (1.0-4.8) Monocytes # (Auto) 0.5 x10^3/uL (0.0-1.1) 0.3 x10^3/uL (0.0-1.1) Eosinophils # (Auto) 0.0 x10^3/uL (0.0-0.7) 0.0 x10^3/uL (0.0-0.7) Basophils # (Auto) 0.0 x10^3/uL (0.0-0.2) 0.0 x10^3/uL (0.0-0.2) Platelet Estimate Adequate (ADEQUATE) Polychromasia Slight Hypochromasia Mod Anisocytosis Slight Microcytosis Slight Urine Collection Type U cath Urine Color Patrica Urine Clarity Clear Urine pH 5.5 Urine Specific [place] 1.020 Urine Protein 100 mg/dL (NEG-TRACE) Urine Glucose (UA) Negative mg/dL (NEG) Urine Ketones (Stick) Trace mg/dL (NEG) Urine Blood Large (NEG) Urine Nitrite Negative (NEG) Urine Bilirubin Small (NEG) Urine Urobilinogen Dipstick 0.2 mg/dL (0.2 mg/dL) Urine Leukocyte Esterase Small (NEG) Urine RBC >40 /HPF (0-2) Urine WBC 1-4 /HPF (0-4) Urine Squamous Epithelial Cells Mod /LPF Urine Transitional Epithelial Cells Few /LPF Urine Bacteria 0 /HPF (0-FEW) Urine Hyaline Casts Moderate /HPF Urine Mucus Mod /LPF Sodium Level 140 mmol/L (136-145) 140 mmol/L (136-145) Potassium Level 4.3 mmol/L (3.5-5.1) 4.9 mmol/L (3.5-5.1) Chloride Level 108 mmol/L (98-107) 111 mmol/L (98-107) Carbon Dioxide Level 23 mmol/L (21-32) 22 mmol/L (21-32) Anion Gap 9 (6-14) 7 (6-14) Blood Urea Nitrogen 23 mg/dL (7-20) 25 mg/dL (7-20) Creatinine 1.9 mg/dL (0.6-1.0) 1.6 mg/dL (0.6-1.0) Estimated GFR (Cockcroft-Gault) 33.1 40.3 BUN/Creatinine Ratio 12 (6-20) Glucose Level 93 mg/dL (70-99) 98 mg/dL (70-99) Calcium Level 9.2 mg/dL (8.5-10.1) 8.0 mg/dL (8.5-10.1) Magnesium Level 1.5 mg/dL (1.8-2.4) 2.1 mg/dL (1.8-2.4) Total Bilirubin 0.1 mg/dL (0.2-1.0) Aspartate Amino Transf (AST/SGOT) 11 U/L (15-37) Alanine Aminotransferase (ALT/SGPT) 12 U/L (14-59) Alkaline Phosphatase 57 U/L (46-116) Creatine Kinase 90 U/L (26-192) Creatine Kinase MB (Mass) < 0.5 ng/mL (0.0-3.6) Creatine Kinase MB Relative Index 0.6 % (0-4) Troponin I Quantitative < 0.017 ng/mL (0.000-0.055) Total Protein 6.8 g/dL (6.4-8.2) Albumin 2.5 g/dL (3.4-5.0) Albumin/Globulin Ratio 0.6 (1.0-1.7) Valproic Acid (Depakene) Level 56 mcg/mL (50-100) Valproic Acid Last Dose Date Unknown Valproic Acid Last Dose Time Unknown ASSESSMENT/PLAN ASSESSMENT/PLAN 1. Syncope; most probably vasovagal. CT head without acute findings. No arrhythmias noted on telemetry 2. H/o hypertension with hypotension upon arrival. Improved with IVF. Now controlled. 3. Hyperlipidemia; check lipids 4. H/o epilepsy; continue anticonvulsants as per neuro 5. Depression/anxiety/schizophrenia 6. AURA with CKD; improved following IVF. Cr now 1.6 7. Hypothyroidism; on replacement therapy 8. Hypomagnesemia; replaced Recommendations ASA. Repeat troponin. Check echo to assess LV function/ rule out structural abnormalities. Monitor telemetry. Could consider outpatient event monitor to r/o significant contributing arrhythmias. Supportive care. Problems: ILDA IBARRA MD 01/04/17 1441: CARDIAC CONSULT ALLERGIES ALLERGIES: Coded Allergies: haloperidol (Verified Allergy, Intermediate, UNKNOWN, 11/09/15) iron dextran complex (Verified Allergy, Intermediate, UNKNOWN, 11/09/15) ASSESSMENT/PLAN ASSESSMENT/PLAN Patient seen and examined. Agree with DIVORCE MEDIATOR's assessment and plan. Syncope most probably vasovagal. EKG and telemetry showed sinus rhythm without any significant arrhythmias. 2-D echo showed normal LV function without any significant structural abnormalities. We will consider event monitor as an outpatient. Thank you for your consultation. Problems: CAROLE ENGLAND APRN Jan 04, 2017 09:32 ILDA IBARRA MD Jan 04, 2017 14:41
[2017-01-04] MEDS: VALPROIC ACID (AS SODIUM SALT) 250 MG/5 ML SOLUTION. PO SCH ×2 (09:37→21:27)
[2017-01-04] MEDS: clonazePAM 1 MG TABLET PO SCH ×2 (09:38→21:27)
[2017-01-04 11:00] VITALS: BP 144/78
--- NOTE | 2017-01-04 11:44 | PDOC ---
PROGRESS NOTES Chief Complaint Chief Complaint 1. Syncope and collapse, likely vagal after a meal, r.o other potential causes ( SZ, arrhythmia etc) 2. Sz hx on AED 3. [facility] resident 4. Obesity BMI 43 5, MOD PCM 6. HYpotension, transient post syncope History of Present Illness History of Present Illness nO acute issues overnight Out of room having cardiac tests PLAn: Will see post test I have seen her in ER last night Vitals Vitals Vital Signs Date Time Temp Pulse Resp B/P (MAP) Pulse Ox O2 Delivery O2 Flow Rate FiO2 01/04/17 11:00 97.5 73 20 144/78 (100) 100 Room Air 97.5 Physical Exam General: Alert, Oriented X3, Cooperative, No acute distress Abdomen: Normal bowel sounds, Soft, No tenderness, No hepatosplenomegaly, No masses Extremities: No clubbing, No cyanosis, No edema, Normal pulses, No tenderness/ swelling Skin: No rashes, No breakdown, No significant lesion Labs LABS Laboratory Tests Test 01/03/17 14:14 01/04/17 03:30 White Blood Count 3.7 x10^3/uL (4.0-11.0) 3.7 x10^3/uL (4.0-11.0) Red Blood Count 4.62 x10^6/uL (3.50-5.40) 4.47 x10^6/uL (3.50-5.40) Hemoglobin 10.5 g/dL (12.0-15.5) 10.2 g/dL (12.0-15.5) Hematocrit 33.9 % (36.0-47.0) 33.4 % (36.0-47.0) Mean Corpuscular Volume 73 fL (79-100) 75 fL (79-100) Mean Corpuscular Hemoglobin 23 pg (25-35) 23 pg (25-35) Mean Corpuscular Hemoglobin Concent 31 g/dL (31-37) 31 g/dL (31-37) Red Cell Distribution Width 16.5 % (11.5-14.5) 17.0 % (11.5-14.5) Platelet Count 152 x10^3/uL (140-400) 143 x10^3/uL (140-400) Neutrophils (%) (Auto) 62 % (31-73) 47 % (31-73) Lymphocytes (%) (Auto) 25 % (24-48) 44 % (24-48) Monocytes (%) (Auto) 13 % (0-9) 9 % (0-9) Eosinophils (%) (Auto) 0 % (0-3) 0 % (0-3) Basophils (%) (Auto) 0 % (0-3) 0 % (0-3) Neutrophils # (Auto) 2.3 x10^3uL (1.8-7.7) 1.7 x10^3uL (1.8-7.7) Lymphocytes # (Auto) 0.9 x10^3/uL (1.0-4.8) 1.6 x10^3/uL (1.0-4.8) Monocytes # (Auto) 0.5 x10^3/uL (0.0-1.1) 0.3 x10^3/uL (0.0-1.1) Eosinophils # (Auto) 0.0 x10^3/uL (0.0-0.7) 0.0 x10^3/uL (0.0-0.7) Basophils # (Auto) 0.0 x10^3/uL (0.0-0.2) 0.0 x10^3/uL (0.0-0.2) Platelet Estimate Adequate (ADEQUATE) Polychromasia Slight Hypochromasia Mod Anisocytosis Slight Microcytosis Slight Urine Collection Type U cath Urine Color Patrica Urine Clarity Clear Urine pH 5.5 Urine Specific [place] 1.020 Urine Protein 100 mg/dL (NEG-TRACE) Urine Glucose (UA) Negative mg/dL (NEG) Urine Ketones (Stick) Trace mg/dL (NEG) Urine Blood Large (NEG) Urine Nitrite Negative (NEG) Urine Bilirubin Small (NEG) Urine Urobilinogen Dipstick 0.2 mg/dL (0.2 mg/dL) Urine Leukocyte Esterase Small (NEG) Urine RBC >40 /HPF (0-2) Urine WBC 1-4 /HPF (0-4) Urine Squamous Epithelial Cells Mod /LPF Urine Transitional Epithelial Cells Few /LPF Urine Bacteria 0 /HPF (0-FEW) Urine Hyaline Casts Moderate /HPF Urine Mucus Mod /LPF Sodium Level 140 mmol/L (136-145) 140 mmol/L (136-145) Potassium Level 4.3 mmol/L (3.5-5.1) 4.9 mmol/L (3.5-5.1) Chloride Level 108 mmol/L (98-107) 111 mmol/L (98-107) Carbon Dioxide Level 23 mmol/L (21-32) 22 mmol/L (21-32) Anion Gap 9 (6-14) 7 (6-14) Blood Urea Nitrogen 23 mg/dL (7-20) 25 mg/dL (7-20) Creatinine 1.9 mg/dL (0.6-1.0) 1.6 mg/dL (0.6-1.0) Estimated GFR (Cockcroft-Gault) 33.1 40.3 BUN/Creatinine Ratio 12 (6-20) Glucose Level 93 mg/dL (70-99) 98 mg/dL (70-99) Calcium Level 9.2 mg/dL (8.5-10.1) 8.0 mg/dL (8.5-10.1) Magnesium Level 1.5 mg/dL (1.8-2.4) 2.1 mg/dL (1.8-2.4) Total Bilirubin 0.1 mg/dL (0.2-1.0) Aspartate Amino Transf (AST/SGOT) 11 U/L (15-37) Alanine Aminotransferase (ALT/SGPT) 12 U/L (14-59) Alkaline Phosphatase 57 U/L (46-116) Creatine Kinase 90 U/L (26-192) Creatine Kinase MB (Mass) < 0.5 ng/mL (0.0-3.6) Creatine Kinase MB Relative Index 0.6 % (0-4) Troponin I Quantitative < 0.017 ng/mL (0.000-0.055) Total Protein 6.8 g/dL (6.4-8.2) Albumin 2.5 g/dL (3.4-5.0) Albumin/Globulin Ratio 0.6 (1.0-1.7) Valproic Acid (Depakene) Level 56 mcg/mL (50-100) Valproic Acid Last Dose Date Unknown Valproic Acid Last Dose Time Unknown Assessment and Plan Assessmemt and Plan Problems Medical Problems: (1) Hypomagnesemia Status: Acute (2) Renal insufficiency Status: Acute (3) Severe protein-calorie malnutrition Status: Acute Problems: Comment Review of Relevant I have reviewed the following items bianca (where applicable) has been applied. Labs Laboratory Tests Test 01/03/17 14:14 01/04/17 03:30 White Blood Count 3.7 x10^3/uL (4.0-11.0) 3.7 x10^3/uL (4.0-11.0) Red Blood Count 4.62 x10^6/uL (3.50-5.40) 4.47 x10^6/uL (3.50-5.40) Hemoglobin 10.5 g/dL (12.0-15.5) 10.2 g/dL (12.0-15.5) Hematocrit 33.9 % (36.0-47.0) 33.4 % (36.0-47.0) Mean Corpuscular Volume 73 fL (79-100) 75 fL (79-100) Mean Corpuscular Hemoglobin 23 pg (25-35) 23 pg (25-35) Mean Corpuscular Hemoglobin Concent 31 g/dL (31-37) 31 g/dL (31-37) Red Cell Distribution Width 16.5 % (11.5-14.5) 17.0 % (11.5-14.5) Platelet Count 152 x10^3/uL (140-400) 143 x10^3/uL (140-400) Neutrophils (%) (Auto) 62 % (31-73) 47 % (31-73) Lymphocytes (%) (Auto) 25 % (24-48) 44 % (24-48) Monocytes (%) (Auto) 13 % (0-9) 9 % (0-9) Eosinophils (%) (Auto) 0 % (0-3) 0 % (0-3) Basophils (%) (Auto) 0 % (0-3) 0 % (0-3) Neutrophils # (Auto) 2.3 x10^3uL (1.8-7.7) 1.7 x10^3uL (1.8-7.7) Lymphocytes # (Auto) 0.9 x10^3/uL (1.0-4.8) 1.6 x10^3/uL (1.0-4.8) Monocytes # (Auto) 0.5 x10^3/uL (0.0-1.1) 0.3 x10^3/uL (0.0-1.1) Eosinophils # (Auto) 0.0 x10^3/uL (0.0-0.7) 0.0 x10^3/uL (0.0-0.7) Basophils # (Auto) 0.0 x10^3/uL (0.0-0.2) 0.0 x10^3/uL (0.0-0.2) Platelet Estimate Adequate (ADEQUATE) Polychromasia Slight Hypochromasia Mod Anisocytosis Slight Microcytosis Slight Urine Collection Type U cath Urine Color Patrica Urine Clarity Clear Urine pH 5.5 Urine Specific [place] 1.020 Urine Protein 100 mg/dL (NEG-TRACE) Urine Glucose (UA) Negative mg/dL (NEG) Urine Ketones (Stick) Trace mg/dL (NEG) Urine Blood Large (NEG) Urine Nitrite Negative (NEG) Urine Bilirubin Small (NEG) Urine Urobilinogen Dipstick 0.2 mg/dL (0.2 mg/dL) Urine Leukocyte Esterase Small (NEG) Urine RBC >40 /HPF (0-2) Urine WBC 1-4 /HPF (0-4) Urine Squamous Epithelial Cells Mod /LPF Urine Transitional Epithelial Cells Few /LPF Urine Bacteria 0 /HPF (0-FEW) Urine Hyaline Casts Moderate /HPF Urine Mucus Mod /LPF Sodium Level 140 mmol/L (136-145) 140 mmol/L (136-145) Potassium Level 4.3 mmol/L (3.5-5.1) 4.9 mmol/L (3.5-5.1) Chloride Level 108 mmol/L (98-107) 111 mmol/L (98-107) Carbon Dioxide Level 23 mmol/L (21-32) 22 mmol/L (21-32) Anion Gap 9 (6-14) 7 (6-14) Blood Urea Nitrogen 23 mg/dL (7-20) 25 mg/dL (7-20) Creatinine 1.9 mg/dL (0.6-1.0) 1.6 mg/dL (0.6-1.0) Estimated GFR (Cockcroft-Gault) 33.1 40.3 BUN/Creatinine Ratio 12 (6-20) Glucose Level 93 mg/dL (70-99) 98 mg/dL (70-99) Calcium Level 9.2 mg/dL (8.5-10.1) 8.0 mg/dL (8.5-10.1) Magnesium Level 1.5 mg/dL (1.8-2.4) 2.1 mg/dL (1.8-2.4) Total Bilirubin 0.1 mg/dL (0.2-1.0) Aspartate Amino Transf (AST/SGOT) 11 U/L (15-37) Alanine Aminotransferase (ALT/SGPT) 12 U/L (14-59) Alkaline Phosphatase 57 U/L (46-116) Creatine Kinase 90 U/L (26-192) Creatine Kinase MB (Mass) < 0.5 ng/mL (0.0-3.6) Creatine Kinase MB Relative Index 0.6 % (0-4) Troponin I Quantitative < 0.017 ng/mL (0.000-0.055) Total Protein 6.8 g/dL (6.4-8.2) Albumin 2.5 g/dL (3.4-5.0) Albumin/Globulin Ratio 0.6 (1.0-1.7) Valproic Acid (Depakene) Level 56 mcg/mL (50-100) Valproic Acid Last Dose Date Unknown Valproic Acid Last Dose Time Unknown Laboratory Tests Test 01/03/17 14:14 01/04/17 03:30 White Blood Count 3.7 x10^3/uL (4.0-11.0) 3.7 x10^3/uL (4.0-11.0) Red Blood Count 4.62 x10^6/uL (3.50-5.40) 4.47 x10^6/uL (3.50-5.40) Hemoglobin 10.5 g/dL (12.0-15.5) 10.2 g/dL (12.0-15.5) Hematocrit 33.9 % (36.0-47.0) 33.4 % (36.0-47.0) Mean Corpuscular Volume 73 fL (79-100) 75 fL (79-100) Mean Corpuscular Hemoglobin 23 pg (25-35) 23 pg (25-35) Mean Corpuscular Hemoglobin Concent 31 g/dL (31-37) 31 g/dL (31-37) Red Cell Distribution Width 16.5 % (11.5-14.5) 17.0 % (11.5-14.5) Platelet Count 152 x10^3/uL (140-400) 143 x10^3/uL (140-400) Neutrophils (%) (Auto) 62 % (31-73) 47 % (31-73) Lymphocytes (%) (Auto) 25 % (24-48) 44 % (24-48) Monocytes (%) (Auto) 13 % (0-9) 9 % (0-9) Eosinophils (%) (Auto) 0 % (0-3) 0 % (0-3) Basophils (%) (Auto) 0 % (0-3) 0 % (0-3) Neutrophils # (Auto) 2.3 x10^3uL (1.8-7.7) 1.7 x10^3uL (1.8-7.7) Lymphocytes # (Auto) 0.9 x10^3/uL (1.0-4.8) 1.6 x10^3/uL (1.0-4.8) Monocytes # (Auto) 0.5 x10^3/uL (0.0-1.1) 0.3 x10^3/uL (0.0-1.1) Eosinophils # (Auto) 0.0 x10^3/uL (0.0-0.7) 0.0 x10^3/uL (0.0-0.7) Basophils # (Auto) 0.0 x10^3/uL (0.0-0.2) 0.0 x10^3/uL (0.0-0.2) Platelet Estimate Adequate (ADEQUATE) Polychromasia Slight Hypochromasia Mod Anisocytosis Slight Microcytosis Slight Urine Collection Type U cath Urine Color Patrica Urine Clarity Clear Urine pH 5.5 Urine Specific [place] 1.020 Urine Protein 100 mg/dL (NEG-TRACE) Urine Glucose (UA) Negative mg/dL (NEG) Urine Ketones (Stick) Trace mg/dL (NEG) Urine Blood Large (NEG) Urine Nitrite Negative (NEG) Urine Bilirubin Small (NEG) Urine Urobilinogen Dipstick 0.2 mg/dL (0.2 mg/dL) Urine Leukocyte Esterase Small (NEG) Urine RBC >40 /HPF (0-2) Urine WBC 1-4 /HPF (0-4) Urine Squamous Epithelial Cells Mod /LPF Urine Transitional Epithelial Cells Few /LPF Urine Bacteria 0 /HPF (0-FEW) Urine Hyaline Casts Moderate /HPF Urine Mucus Mod /LPF Sodium Level 140 mmol/L (136-145) 140 mmol/L (136-145) Potassium Level 4.3 mmol/L (3.5-5.1) 4.9 mmol/L (3.5-5.1) Chloride Level 108 mmol/L (98-107) 111 mmol/L (98-107) Carbon Dioxide Level 23 mmol/L (21-32) 22 mmol/L (21-32) Anion Gap 9 (6-14) 7 (6-14) Blood Urea Nitrogen 23 mg/dL (7-20) 25 mg/dL (7-20) Creatinine 1.9 mg/dL (0.6-1.0) 1.6 mg/dL (0.6-1.0) Estimated GFR (Cockcroft-Gault) 33.1 40.3 BUN/Creatinine Ratio 12 (6-20) Glucose Level 93 mg/dL (70-99) 98 mg/dL (70-99) Calcium Level 9.2 mg/dL (8.5-10.1) 8.0 mg/dL (8.5-10.1) Magnesium Level 1.5 mg/dL (1.8-2.4) 2.1 mg/dL (1.8-2.4) Total Bilirubin 0.1 mg/dL (0.2-1.0) Aspartate Amino Transf (AST/SGOT) 11 U/L (15-37) Alanine Aminotransferase (ALT/SGPT) 12 U/L (14-59) Alkaline Phosphatase 57 U/L (46-116) Creatine Kinase 90 U/L (26-192) Creatine Kinase MB (Mass) < 0.5 ng/mL (0.0-3.6) Creatine Kinase MB Relative Index 0.6 % (0-4) Troponin I Quantitative < 0.017 ng/mL (0.000-0.055) Total Protein 6.8 g/dL (6.4-8.2) Albumin 2.5 g/dL (3.4-5.0) Albumin/Globulin Ratio 0.6 (1.0-1.7) Valproic Acid (Depakene) Level 56 mcg/mL (50-100) Valproic Acid Last Dose Date Unknown Valproic Acid Last Dose Time Unknown Medications Current Medications Sodium Chloride 1,000 ml @ 1,000 mls/hr 1X ONCE IV Last administered on 14:17; Start 01/03/17 at 14:30; Stop 01/03/17 at 15:29; Status DC Magnesium Sulfate/ Dextrose 100 ml @ 100 mls/hr 1X ONCE IV Last administered on 01/03/17 16:44; Start 01/03/17 at 16:30; Stop 01/03/17 at 17:29; Status DC Ondansetron HCl (Zofran) 4 mg PRN Q8HRS PRN IV NAUSEA/VOMITING; Start 01/03/17 at 16:30; Stop 01/03/17 at 16:30; Status DC Sodium Chloride 1,000 ml @ 100 mls/hr Q10H IV Last administered on 01/04/17 09 :28; Start 01/03/17 at 16:21; Stop 01/04/17 at 16:20 Acetaminophen (Tylenol) 650 mg PRN Q4HRS PRN PO FEVER Last administered on 22:05; Start 01/03/17 at 16:30; Stop 01/04/17 at 16:29 Ondansetron HCl (Zofran) 4 mg PRN Q6HRS PRN IV NAUSEA/VOMITING; Start 01/03/17 at 16:30; Stop 01/04/17 at 16:29 Magnesium Sulfate/ Dextrose 50 ml @ 25 mls/hr 1X ONCE IV Last administered on 01/03/17 21:00; Start 01/03/17 at 16:45; Stop 01/03/17 at 18:44; Status DC Enoxaparin Sodium (Lovenox 40mg Syringe) 40 mg Q12HR SQ Last administered on 09:31; Start 01/03/17 at 21:00 Acetaminophen (Tylenol) 650 mg PRN Q6HRS PRN PO PAIN/TEMP; Start 01/03/17 at 18: 30 Aspirin (Children'S Aspirin) 81 mg DAILY PO Last administered on 01/04/17 09:29 ; Start 01/04/17 at 09:00 Clonazepam (KlonoPIN) 1 mg PRN BID PRN PO ANXIETY / AGITATION; Start 01/03/17 at 18:30 Famotidine (Pepcid) 20 mg DAILY PO Last administered on 01/04/17 09:28; Start 01/04/17 at 09:00 Guaifenesin (Robitussin) 200 mg PRN Q4HRS PRN PO COUGH; Start 01/03/17 at 18:30 Levothyroxine Sodium (Synthroid) 75 mcg DAILY07 PO Last administered on 06:04; Start 01/04/17 at 07:00 Magnesium Hydroxide (Milk Of Magnesia) 2,400 mg PRN DAILY PRN PO CONSTIPATION; Start 01/03/17 at 18:30 Risperidone (RisperDAL CONSTA) 50 mg Q2WKS@2100 IM ; Start 01/07/17 at 21:00 Topiramate (Topamax) 100 mg BID PO Last administered on 01/04/17 09:28; Start 01/03/17 at 21:00 Valproic Acid (Depakene) 750 mg BID PO Last administered on 01/04/17 09:37; Start 01/03/17 at 21:00 Clonazepam (KlonoPIN) 2 mg BID PO Last administered on 01/04/17 09:38; Start at 21:00 Multivitamins (Thera M Plus) 1 tab DAILY PO Last administered on 01/04/17 09:29 ; Start 01/04/17 at 09:00 Risperidone (RisperDAL) 4 mg BID PO Last administered on 01/04/17 09:28; Start 01/03/17 at 21:00 Al Hydroxide/Mg Hydroxide (Mylanta Plus Xs) 30 ml PRN Q4HRS PRN PO HEARTBURN / GAS/ INDIGESTION; Start 01/03/17 at 19:15 Loperamide HCl (Imodium) 2 mg PRN Q15MIN PRN PO DIARRHEA; Start 01/03/17 at 19: 30 Nystatin (Nystop) 1 saw DAILY TP Last administered on 01/04/17 09:28; Start 01/04/17 at 09:00 Nystatin (Nystop) 1 saw PRN BID PRN TP CANDIDIASIS; Start 01/03/17 at 19:30 Active Scripts Active Reported Maalox Advanced Suspension (Mag Hydrox/Aluminum Hyd/Simeth) 355 Ml Oral.susp 200 Mg PO Q4HRS PRN Risperdal Consta (Risperidone Microspheres) 37.5 Mg/2 Ml Disp.syrin 50 Mg IM QEVNG Pepcid (Famotidine) 20 Mg Tablet 20 Mg PO DAILY Valproic Acid (Valproic Acid (As Sodium Salt)) 250 Mg/5 Ml Solution 750 Mg PO BID Topamax (Topiramate) 100 Mg Tablet 1 Tab PO BID Risperdal (Risperidone) 4 Mg Tablet 1 Tab PO BID Simethicone 125 Mg Capsule 125 Mg PO Multivitamins (Multivitamin) 1 Each Tablet 1 Tab PO DAILY Milk Of Magnesia (Magnesium Hydroxide) 400 Mg/5 Ml Oral.susp 400 Mg PO DAILY PRN Anti-Diarrhea (Loperamide Hcl) 2 Mg Tablet 2 Mg PO PRN Levothyroxine Sodium 75 Mcg Tablet 1 Tab PO DAILY Ashley-Tussin (Guaifenesin) 100 Mg/5 Ml Liquid 200 Mg PO Q4HRS PRN Clonazepam 2 Mg Tablet 1 Tab PO BID PRN Clonazepam 1 Mg Tablet 1 Tab PO BID PRN Aspirin 81 Mg Tab.chew 1 Tab PO DAILY Tylenol (Acetaminophen) 325 Mg Tablet 2 Tab PO PRN Q6HRS Vitals/I & O Vital Sign - Last 24 Hours 01/03/17 01/03/17 01/03/17 01/03/17 13:31 13:49 15:00 17:30 Temp 98.6 97.5 98.6 97.5 Pulse 93 90 85 76 Resp 16 16 18 20 B/P (MAP) 84/70 (75) 84/70 (75) 109/69 (82) 148/99 (115) Pulse Ox 95 97 95 99 O2 Delivery Room Air Room Air Room Air Room Air 01/03/17 01/03/17 01/03/17 01/03/17 17:51 17:55 19:25 20:00 Temp 97.5 98.6 97.5 98.6 Pulse 76 72 Resp 20 20 B/P (MAP) 148/99 (115) 150/87 (108) Pulse Ox 99 100 O2 Delivery Room Air Room Air Room Air Room Air 01/03/17 01/04/17 01/04/17 01/04/17 23:30 03:30 07:00 08:00 Temp 98.0 97.8 98.2 98.0 97.8 98.2 Pulse 70 78 73 Resp 18 18 20 B/P (MAP) 148/85 (106) 151/65 (93) 154/84 (107) Pulse Ox 100 97 98 O2 Delivery Room Air Room Air Room Air Room Air 01/04/17 11:00 Temp 97.5 97.5 Pulse 73 Resp 20 B/P (MAP) 144/78 (100) Pulse Ox 100 O2 Delivery Room Air Intake and Output 01/03/17 01/03/17 01/04/17 15:00 23:00 07:00 Intake Total 600 ml Output Total 150 ml Balance 450 ml VIRGINIA DAMON MD Jan 04, 2017 11:44
--- NOTE | 2017-01-04 12:07 | PDOC2 ---
NEUROLOGY CONSULT Date of Admission Date of Admission DATE: 01/04/17 TIME: 12:00 Reason for Consult Reason for Consult: Syncope, history of seizures Referring Physician Referring Physician: Dr. Leroy Source Source: Chart review, Patient History of Present Illness History of Present Illness The patient is a 56-year-old right-handed female [facility] resident with history of epilepsy, strabismus, intellectual disability, schizophrenia, depression, and anxiety, who fainted while eating yesterday. Blood pressure was in the 80s systolic in the field. She feels fine now. She says that this pattern is not usual for her seizures. She does not remember the last time she had one. No compulsive activity or incontinence was observed this time. Past Medical History Cardiovascular: HTN, Hyperlipidemia CENTRAL NERVOUS SYSTEM: Other ( extrapyramidal syndrome, intellectual disability) GI: Constipation, GERD Psych: Anxiety, Depression, Schizophrenia ENT: Allergic Rhinitis, Other (Strabismus) Renal/: UTI Endocrine: Hypothyroidism Past Surgical History Past Surgical History: No pertinent history Family History Family History: Other ( she says her parents are still alive, "they" told her that they were , but she does not believe "them.") Social History Social History Single, [facility] resident, no alcohol or tobacco Current Medications Current Medications Current Medications Sodium Chloride 1,000 ml @ 1,000 mls/hr 1X ONCE IV Last administered on 14:17; Start 01/03/17 at 14:30; Stop 01/03/17 at 15:29; Status DC Magnesium Sulfate/ Dextrose 100 ml @ 100 mls/hr 1X ONCE IV Last administered on 01/03/17 16:44; Start 01/03/17 at 16:30; Stop 01/03/17 at 17:29; Status DC Ondansetron HCl (Zofran) 4 mg PRN Q8HRS PRN IV NAUSEA/VOMITING; Start 01/03/17 at 16:30; Stop 01/03/17 at 16:30; Status DC Sodium Chloride 1,000 ml @ 100 mls/hr Q10H IV Last administered on 01/04/17 09 :28; Start 01/03/17 at 16:21; Stop 01/04/17 at 16:20 Acetaminophen (Tylenol) 650 mg PRN Q4HRS PRN PO FEVER Last administered on 22:05; Start 01/03/17 at 16:30; Stop 01/04/17 at 16:29 Ondansetron HCl (Zofran) 4 mg PRN Q6HRS PRN IV NAUSEA/VOMITING; Start 01/03/17 at 16:30; Stop 01/04/17 at 16:29 Magnesium Sulfate/ Dextrose 50 ml @ 25 mls/hr 1X ONCE IV Last administered on 01/03/17 21:00; Start 01/03/17 at 16:45; Stop 01/03/17 at 18:44; Status DC Enoxaparin Sodium (Lovenox 40mg Syringe) 40 mg Q12HR SQ Last administered on 09:31; Start 01/03/17 at 21:00 Acetaminophen (Tylenol) 650 mg PRN Q6HRS PRN PO PAIN/TEMP; Start 01/03/17 at 18: 30 Aspirin (Children'S Aspirin) 81 mg DAILY PO Last administered on 01/04/17 09:29 ; Start 01/04/17 at 09:00 Clonazepam (KlonoPIN) 1 mg PRN BID PRN PO ANXIETY / AGITATION; Start 01/03/17 at 18:30 Famotidine (Pepcid) 20 mg DAILY PO Last administered on 01/04/17 09:28; Start 01/04/17 at 09:00 Guaifenesin (Robitussin) 200 mg PRN Q4HRS PRN PO COUGH; Start 01/03/17 at 18:30 Levothyroxine Sodium (Synthroid) 75 mcg DAILY07 PO Last administered on 06:04; Start 01/04/17 at 07:00 Magnesium Hydroxide (Milk Of Magnesia) 2,400 mg PRN DAILY PRN PO CONSTIPATION; Start 01/03/17 at 18:30 Risperidone (RisperDAL CONSTA) 50 mg Q2WKS@2100 IM ; Start 01/07/17 at 21:00 Topiramate (Topamax) 100 mg BID PO Last administered on 01/04/17 09:28; Start 01/03/17 at 21:00 Valproic Acid (Depakene) 750 mg BID PO Last administered on 01/04/17 09:37; Start 01/03/17 at 21:00 Clonazepam (KlonoPIN) 2 mg BID PO Last administered on 01/04/17 09:38; Start at 21:00 Multivitamins (Thera M Plus) 1 tab DAILY PO Last administered on 01/04/17 09:29 ; Start 01/04/17 at 09:00 Risperidone (RisperDAL) 4 mg BID PO Last administered on 01/04/17 09:28; Start 01/03/17 at 21:00 Al Hydroxide/Mg Hydroxide (Mylanta Plus Xs) 30 ml PRN Q4HRS PRN PO HEARTBURN / GAS/ INDIGESTION; Start 01/03/17 at 19:15 Loperamide HCl (Imodium) 2 mg PRN Q15MIN PRN PO DIARRHEA; Start 01/03/17 at 19: 30 Nystatin (Nystop) 1 saw DAILY TP Last administered on 01/04/17 09:28; Start 01/04/17 at 09:00 Nystatin (Nystop) 1 saw PRN BID PRN TP CANDIDIASIS; Start 01/03/17 at 19:30 Active Scripts Active Reported Maalox Advanced Suspension (Mag Hydrox/Aluminum Hyd/Simeth) 355 Ml Oral.susp 200 Mg PO Q4HRS PRN Risperdal Consta (Risperidone Microspheres) 37.5 Mg/2 Ml Disp.syrin 50 Mg IM QEVNG Pepcid (Famotidine) 20 Mg Tablet 20 Mg PO DAILY Valproic Acid (Valproic Acid (As Sodium Salt)) 250 Mg/5 Ml Solution 750 Mg PO BID Topamax (Topiramate) 100 Mg Tablet 1 Tab PO BID Risperdal (Risperidone) 4 Mg Tablet 1 Tab PO BID Simethicone 125 Mg Capsule 125 Mg PO Multivitamins (Multivitamin) 1 Each Tablet 1 Tab PO DAILY Milk Of Magnesia (Magnesium Hydroxide) 400 Mg/5 Ml Oral.susp 400 Mg PO DAILY PRN Anti-Diarrhea (Loperamide Hcl) 2 Mg Tablet 2 Mg PO PRN Levothyroxine Sodium 75 Mcg Tablet 1 Tab PO DAILY Ashley-Tussin (Guaifenesin) 100 Mg/5 Ml Liquid 200 Mg PO Q4HRS PRN Clonazepam 2 Mg Tablet 1 Tab PO BID PRN Clonazepam 1 Mg Tablet 1 Tab PO BID PRN Aspirin 81 Mg Tab.chew 1 Tab PO DAILY Tylenol (Acetaminophen) 325 Mg Tablet 2 Tab PO PRN Q6HRS Allergies Allergies: Coded Allergies: haloperidol (Verified Allergy, Intermediate, UNKNOWN, 11/09/15) iron dextran complex (Verified Allergy, Intermediate, UNKNOWN, 11/09/15) ROS Review of System Negative for fevers, chills, weight loss, chest pain, indigestion, hematochezia , melena, dysuria. Positive for dyspnea. Full 14-point review systems is negative. Physical Exam Physical Examination PHYSICAL EXAMINATION: Vital signs: see above. General appearance is normal and in no acute distress. HEENT: Normocephalic and nontraumatic. Eyes, nose, ears, and throat are unremarkable. Neck is supple. No lymphadenopathy. No bruits are heard over the carotid artery. No crepitus. NEUROLOGICAL EXAMINATION: Mental Status Examination: Alert. Oriented to place and person. Answers questions and follows commends, But consistent with intellectual disability. Pupils are equal round and reactive to light and accommodation. She has bilateral strabismus, otherwise extraocular movements are intact. Visual field exam shows no defect on the direct confrontation. No motor or sensory deficits on the facial exam. Uvula in the midline and the soft palate elevated symmetrically. No deviation of the tongue to any direction. Gross hearing is normal. Shoulder shrug normal. Muscle tone is normal. Muscle strength is 5. Deep tendon reflexes are 2+ all around. Plantar reflex is with flexion response bilaterally. Afbbal-hf-[id number] test performance is accurate. Alternative movements are accurate. Gait is not tested. Sensory exam shows no deficits. No cerebellar signs are elicited. Vitals VITALS Vital Signs Date Time Temp Pulse Resp B/P (MAP) Pulse Ox O2 Delivery O2 Flow Rate FiO2 01/04/17 11:00 97.5 73 20 144/78 (100) 100 Room Air 97.5 Labs Labs Laboratory Tests Test 01/03/17 14:14 01/04/17 03:30 White Blood Count 3.7 x10^3/uL (4.0-11.0) 3.7 x10^3/uL (4.0-11.0) Red Blood Count 4.62 x10^6/uL (3.50-5.40) 4.47 x10^6/uL (3.50-5.40) Hemoglobin 10.5 g/dL (12.0-15.5) 10.2 g/dL (12.0-15.5) Hematocrit 33.9 % (36.0-47.0) 33.4 % (36.0-47.0) Mean Corpuscular Volume 73 fL (79-100) 75 fL (79-100) Mean Corpuscular Hemoglobin 23 pg (25-35) 23 pg (25-35) Mean Corpuscular Hemoglobin Concent 31 g/dL (31-37) 31 g/dL (31-37) Red Cell Distribution Width 16.5 % (11.5-14.5) 17.0 % (11.5-14.5) Platelet Count 152 x10^3/uL (140-400) 143 x10^3/uL (140-400) Neutrophils (%) (Auto) 62 % (31-73) 47 % (31-73) Lymphocytes (%) (Auto) 25 % (24-48) 44 % (24-48) Monocytes (%) (Auto) 13 % (0-9) 9 % (0-9) Eosinophils (%) (Auto) 0 % (0-3) 0 % (0-3) Basophils (%) (Auto) 0 % (0-3) 0 % (0-3) Neutrophils # (Auto) 2.3 x10^3uL (1.8-7.7) 1.7 x10^3uL (1.8-7.7) Lymphocytes # (Auto) 0.9 x10^3/uL (1.0-4.8) 1.6 x10^3/uL (1.0-4.8) Monocytes # (Auto) 0.5 x10^3/uL (0.0-1.1) 0.3 x10^3/uL (0.0-1.1) Eosinophils # (Auto) 0.0 x10^3/uL (0.0-0.7) 0.0 x10^3/uL (0.0-0.7) Basophils # (Auto) 0.0 x10^3/uL (0.0-0.2) 0.0 x10^3/uL (0.0-0.2) Platelet Estimate Adequate (ADEQUATE) Polychromasia Slight Hypochromasia Mod Anisocytosis Slight Microcytosis Slight Urine Collection Type U cath Urine Color Patrica Urine Clarity Clear Urine pH 5.5 Urine Specific [place] 1.020 Urine Protein 100 mg/dL (NEG-TRACE) Urine Glucose (UA) Negative mg/dL (NEG) Urine Ketones (Stick) Trace mg/dL (NEG) Urine Blood Large (NEG) Urine Nitrite Negative (NEG) Urine Bilirubin Small (NEG) Urine Urobilinogen Dipstick 0.2 mg/dL (0.2 mg/dL) Urine Leukocyte Esterase Small (NEG) Urine RBC >40 /HPF (0-2) Urine WBC 1-4 /HPF (0-4) Urine Squamous Epithelial Cells Mod /LPF Urine Transitional Epithelial Cells Few /LPF Urine Bacteria 0 /HPF (0-FEW) Urine Hyaline Casts Moderate /HPF Urine Mucus Mod /LPF Sodium Level 140 mmol/L (136-145) 140 mmol/L (136-145) Potassium Level 4.3 mmol/L (3.5-5.1) 4.9 mmol/L (3.5-5.1) Chloride Level 108 mmol/L (98-107) 111 mmol/L (98-107) Carbon Dioxide Level 23 mmol/L (21-32) 22 mmol/L (21-32) Anion Gap 9 (6-14) 7 (6-14) Blood Urea Nitrogen 23 mg/dL (7-20) 25 mg/dL (7-20) Creatinine 1.9 mg/dL (0.6-1.0) 1.6 mg/dL (0.6-1.0) Estimated GFR (Cockcroft-Gault) 33.1 40.3 BUN/Creatinine Ratio 12 (6-20) Glucose Level 93 mg/dL (70-99) 98 mg/dL (70-99) Calcium Level 9.2 mg/dL (8.5-10.1) 8.0 mg/dL (8.5-10.1) Magnesium Level 1.5 mg/dL (1.8-2.4) 2.1 mg/dL (1.8-2.4) Total Bilirubin 0.1 mg/dL (0.2-1.0) Aspartate Amino Transf (AST/SGOT) 11 U/L (15-37) Alanine Aminotransferase (ALT/SGPT) 12 U/L (14-59) Alkaline Phosphatase 57 U/L (46-116) Creatine Kinase 90 U/L (26-192) Creatine Kinase MB (Mass) < 0.5 ng/mL (0.0-3.6) Creatine Kinase MB Relative Index 0.6 % (0-4) Troponin I Quantitative < 0.017 ng/mL (0.000-0.055) Total Protein 6.8 g/dL (6.4-8.2) Albumin 2.5 g/dL (3.4-5.0) Albumin/Globulin Ratio 0.6 (1.0-1.7) Valproic Acid (Depakene) Level 56 mcg/mL (50-100) Valproic Acid Last Dose Date Unknown Valproic Acid Last Dose Time Unknown Laboratory Tests Test 01/03/17 14:14 01/04/17 03:30 White Blood Count 3.7 x10^3/uL (4.0-11.0) 3.7 x10^3/uL (4.0-11.0) Red Blood Count 4.62 x10^6/uL (3.50-5.40) 4.47 x10^6/uL (3.50-5.40) Hemoglobin 10.5 g/dL (12.0-15.5) 10.2 g/dL (12.0-15.5) Hematocrit 33.9 % (36.0-47.0) 33.4 % (36.0-47.0) Mean Corpuscular Volume 73 fL (79-100) 75 fL (79-100) Mean Corpuscular Hemoglobin 23 pg (25-35) 23 pg (25-35) Mean Corpuscular Hemoglobin Concent 31 g/dL (31-37) 31 g/dL (31-37) Red Cell Distribution Width 16.5 % (11.5-14.5) 17.0 % (11.5-14.5) Platelet Count 152 x10^3/uL (140-400) 143 x10^3/uL (140-400) Neutrophils (%) (Auto) 62 % (31-73) 47 % (31-73) Lymphocytes (%) (Auto) 25 % (24-48) 44 % (24-48) Monocytes (%) (Auto) 13 % (0-9) 9 % (0-9) Eosinophils (%) (Auto) 0 % (0-3) 0 % (0-3) Basophils (%) (Auto) 0 % (0-3) 0 % (0-3) Neutrophils # (Auto) 2.3 x10^3uL (1.8-7.7) 1.7 x10^3uL (1.8-7.7) Lymphocytes # (Auto) 0.9 x10^3/uL (1.0-4.8) 1.6 x10^3/uL (1.0-4.8) Monocytes # (Auto) 0.5 x10^3/uL (0.0-1.1) 0.3 x10^3/uL (0.0-1.1) Eosinophils # (Auto) 0.0 x10^3/uL (0.0-0.7) 0.0 x10^3/uL (0.0-0.7) Basophils # (Auto) 0.0 x10^3/uL (0.0-0.2) 0.0 x10^3/uL (0.0-0.2) Platelet Estimate Adequate (ADEQUATE) Polychromasia Slight Hypochromasia Mod Anisocytosis Slight Microcytosis Slight Urine Collection Type U cath Urine Color Patrica Urine Clarity Clear Urine pH 5.5 Urine Specific [place] 1.020 Urine Protein 100 mg/dL (NEG-TRACE) Urine Glucose (UA) Negative mg/dL (NEG) Urine Ketones (Stick) Trace mg/dL (NEG) Urine Blood Large (NEG) Urine Nitrite Negative (NEG) Urine Bilirubin Small (NEG) Urine Urobilinogen Dipstick 0.2 mg/dL (0.2 mg/dL) Urine Leukocyte Esterase Small (NEG) Urine RBC >40 /HPF (0-2) Urine WBC 1-4 /HPF (0-4) Urine Squamous Epithelial Cells Mod /LPF Urine Transitional Epithelial Cells Few /LPF Urine Bacteria 0 /HPF (0-FEW) Urine Hyaline Casts Moderate /HPF Urine Mucus Mod /LPF Sodium Level 140 mmol/L (136-145) 140 mmol/L (136-145) Potassium Level 4.3 mmol/L (3.5-5.1) 4.9 mmol/L (3.5-5.1) Chloride Level 108 mmol/L (98-107) 111 mmol/L (98-107) Carbon Dioxide Level 23 mmol/L (21-32) 22 mmol/L (21-32) Anion Gap 9 (6-14) 7 (6-14) Blood Urea Nitrogen 23 mg/dL (7-20) 25 mg/dL (7-20) Creatinine 1.9 mg/dL (0.6-1.0) 1.6 mg/dL (0.6-1.0) Estimated GFR (Cockcroft-Gault) 33.1 40.3 BUN/Creatinine Ratio 12 (6-20) Glucose Level 93 mg/dL (70-99) 98 mg/dL (70-99) Calcium Level 9.2 mg/dL (8.5-10.1) 8.0 mg/dL (8.5-10.1) Magnesium Level 1.5 mg/dL (1.8-2.4) 2.1 mg/dL (1.8-2.4) Total Bilirubin 0.1 mg/dL (0.2-1.0) Aspartate Amino Transf (AST/SGOT) 11 U/L (15-37) Alanine Aminotransferase (ALT/SGPT) 12 U/L (14-59) Alkaline Phosphatase 57 U/L (46-116) Creatine Kinase 90 U/L (26-192) Creatine Kinase MB (Mass) < 0.5 ng/mL (0.0-3.6) Creatine Kinase MB Relative Index 0.6 % (0-4) Troponin I Quantitative < 0.017 ng/mL (0.000-0.055) Total Protein 6.8 g/dL (6.4-8.2) Albumin 2.5 g/dL (3.4-5.0) Albumin/Globulin Ratio 0.6 (1.0-1.7) Valproic Acid (Depakene) Level 56 mcg/mL (50-100) Valproic Acid Last Dose Date Unknown Valproic Acid Last Dose Time Unknown Images Images CT head: FINDINGS: There is no acute intracranial process identified. Specifically, there are no intracranial blood products, extra-axial fluid collections, mass effect or midline shift. Ventricles and basilar cisterns are maintained. The visualized portions of the orbits, paranasal sinuses and mastoid air cells are unremarkable. No suspicious calvarial lesion is seen. IMPRESSION: No acute intracranial findings. Assessment/Plan Assessment/Plan Impression: Vasovagal syncope History of epilepsy, on anticonvulsants History of multiple psychiatric illnesses as listed above. History of extrapyramidal syndrome, no dyskinesias at present. Recommendations: No additional neurological studies. Continue current anticonvulsants. Thank you for letting me help with the patient's care. SANAM TAPIA MD Jan 04, 2017 12:07
[2017-01-04 13:12] LABS: CHOLESTEROL/HDL RATIO 3.9
--- NOTE | 2017-01-04 13:33 | CARD ---
APPROVED REPORT EXAM: Two-dimensional and M-mode echocardiogram with Doppler and color Doppler. Other Information Quality : Good INDICATION Syncope 2D DIMENSIONS RVDd2.3 (2.9-3.5cm)Left Atrium(2D)3.1 (1.6-4.0cm) IVSd1.0 (0.7-1.1cm)Aortic Root(2D)2.3 (2.0-3.7cm) LVDd4.6 (3.9-5.9cm)LVOT Diameter2.0 (1.8-2.4cm) PWd1.1 (0.7-1.1cm)LVDs2.7 (2.5-4.0cm) FS (%) 30.0 %SV71.0 ml LVEF(%)60.0 (>50%) Aortic Valve AoV Peak Kaden.179.9cm/sAoV VTI34.5cm AO Peak GR.12.9mmHgLVOT Peak Kaden.116.8cm/s AO Mean GR.6mmHgAVA (VMAX)2.00cm2 DIMITRI (VTI)2.20cm2 Mitral Valve MV E Ityctsia17.2cm/sMV DECEL [id number] MV A Tsflkdnt64.5cm/sE/A Ratio1.0 Pulmonary Vein S1 Svqwxgcv70.6cm/sD2 Phgmnlow44.7cm/s LEFT VENTRICLE The left ventricle is normal size. There is normal left ventricular wall thickness. The left ventricu lar systolic function is normal and the ejection fraction is within normal range. The Ejection Fracti on is 55-60%. There is normal LV segmental wall motion. Transmitral Doppler flow pattern is Grade I-a bnormal relaxation pattern. RIGHT VENTRICLE The right ventricle is normal size. The right ventricular systolic function is normal. ATRIA The left atrium size is normal. The right atrium size is normal. The interatrial septum is intact wit h no evidence for an atrial septal defect or patent foramen ovale as noted on 2-D or Doppler imaging. AORTIC VALVE The aortic valve is calcified but opens well. Doppler and Color Flow revealed trace aortic regurgitat ion. There is no significant aortic valvular stenosis. MITRAL VALVE The mitral valve is calcified but opens well. There is no evidence of mitral valve prolapse. There is no mitral valve stenosis. Doppler and Color-flow revealed trace to mild mitral regurgitation. TRICUSPID VALVE The tricuspid valve is normal in structure and function. Doppler and Color Flow revealed physiologica l tricuspid regurgitation. There is no tricuspid valve stenosis. PULMONIC VALVE The pulmonary valve is normal in structure and function. Doppler and Color Flow revealed mild pulmoni c valvular regurgitation. There is no pulmonic valvular stenosis. GREAT VESSELS The aortic root is normal in size. The ascending aorta is not well seen. The IVC is normal in size an d collapses >50% with inspiration. PERICARDIAL EFFUSION There is no evidence of significant pericardial effusion. Critical Notification Critical Value: No <Conclusion> The left ventricular systolic function is normal and the ejection fraction is within normal range. Th e Ejection Fraction is 55-60%. There is normal LV segmental wall motion.
[2017-01-04 15:00] VITALS: BP 149/84
[2017-01-04 19:15] VITALS: BP 166/77
[2017-01-04 23:15] VITALS: BP 145/81
[2017-01-05 03:15] VITALS: BP 162/86
[2017-01-05] MEDS: LEVOTHYROXINE 75 MCG TABLET PO SCH (06:02)
[2017-01-05 07:16] VITALS: BP 183/94
[2017-01-05] MEDS ORDERED: SIMETHICONE 80 MG TAB.CHEW PO PRN (09:30)
[2017-01-05] MEDS ORDERED: LABETALOL 20 MG/4 ML DISP.SYRIN. IVP PRN (09:30)
[2017-01-05] MEDS ORDERED: LOPERAMIDE 2 MG CAPSULE PO PRN (09:30)
[2017-01-05] MEDS ORDERED: LABETALOL 20 MG/4 ML DISP.SYRIN. IVP ONE (09:45)
[2017-01-05] MEDS: ENOXAPARIN 40 MG/0.4 ML SYRINGE. SQ SCH (09:47)
[2017-01-05] MEDS: VALPROIC ACID (AS SODIUM SALT) 250 MG/5 ML SOLUTION. PO SCH ×2 (09:47→22:24)
[2017-01-05] MEDS: MULTIVITAMIN with MINERAL TABLET. PO SCH (09:48)
[2017-01-05] MEDS: risperiDONE 1 MG TABLET. PO SCH ×2 (09:48→22:24)
[2017-01-05] MEDS: ASPIRIN CHEWABLE 81 MG TABLET. PO SCH (09:48)
[2017-01-05] MEDS: TOPIRAMATE 100 MG TABLET. PO SCH ×2 (09:48→22:25)
[2017-01-05] MEDS: FAMOTIDINE 20 MG TABLET. PO SCH (09:48)
[2017-01-05] MEDS: clonazePAM 1 MG TABLET PO SCH ×2 (09:48→22:24)
[2017-01-05] MEDS: NYSTATIN TOPICAL POWDER 15GM BOTTLE. TP SCH (09:57)
--- NOTE | 2017-01-05 10:20 | PDOC ---
PROGRESS NOTES Assessment Problems Medical Problems: (1) Hypomagnesemia Status: Acute (2) Renal insufficiency Status: Acute (3) Severe protein-calorie malnutrition Status: Acute Vasovagal syncope History of epilepsy, on anticonvulsants History of multiple psychiatric illnesses as listed above. History of extrapyramidal syndrome, no dyskinesias at present. Plan No additional neurological studies. Continue current anticonvulsants. Okay for discharge Subjective Patient says the doctor told her that she could stay here for 10 days Objective Vital Signs Date Time Temp Pulse Resp B/P (MAP) Pulse Ox O2 Delivery O2 Flow Rate FiO2 01/05/17 09:58 65 183/94 01/05/17 07:16 97.5 18 98 Room Air 97.5 Intake and Output 01/05/17 07:00 Intake Total 1200 ml Balance 1200 ml Intake Oral 1200 ml # Voids 8 PHYSICAL EXAM Alert. Oriented to person only, consistent with intellectual disability. PERRL. EOMI, bilateral strabismus. CN: no focal findings. Muscle tone: normal. Muscle strength: 4/5 DTR: 1+ Plantar reflex: flexor Gait: not examined in bed. Sensory exam: no abnormal findings. No cerebellar signs elicited. Review of Relevant I have reviewed the following items bianca (where applicable) has been applied. Labs Laboratory Tests Test 01/03/17 14:14 01/03/17 22:20 01/04/17 03:30 White Blood Count 3.7 x10^3/uL (4.0-11.0) 3.7 x10^3/uL (4.0-11.0) Red Blood Count 4.62 x10^6/uL (3.50-5.40) 4.47 x10^6/uL (3.50-5.40) Hemoglobin 10.5 g/dL (12.0-15.5) 10.2 g/dL (12.0-15.5) Hematocrit 33.9 % (36.0-47.0) 33.4 % (36.0-47.0) Mean Corpuscular Volume 73 fL (79-100) 75 fL (79-100) Mean Corpuscular Hemoglobin 23 pg (25-35) 23 pg (25-35) Mean Corpuscular Hemoglobin Concent 31 g/dL (31-37) 31 g/dL (31-37) Red Cell Distribution Width 16.5 % (11.5-14.5) 17.0 % (11.5-14.5) Platelet Count 152 x10^3/uL (140-400) 143 x10^3/uL (140-400) Neutrophils (%) (Auto) 62 % (31-73) 47 % (31-73) Lymphocytes (%) (Auto) 25 % (24-48) 44 % (24-48) Monocytes (%) (Auto) 13 % (0-9) 9 % (0-9) Eosinophils (%) (Auto) 0 % (0-3) 0 % (0-3) Basophils (%) (Auto) 0 % (0-3) 0 % (0-3) Neutrophils # (Auto) 2.3 x10^3uL (1.8-7.7) 1.7 x10^3uL (1.8-7.7) Lymphocytes # (Auto) 0.9 x10^3/uL (1.0-4.8) 1.6 x10^3/uL (1.0-4.8) Monocytes # (Auto) 0.5 x10^3/uL (0.0-1.1) 0.3 x10^3/uL (0.0-1.1) Eosinophils # (Auto) 0.0 x10^3/uL (0.0-0.7) 0.0 x10^3/uL (0.0-0.7) Basophils # (Auto) 0.0 x10^3/uL (0.0-0.2) 0.0 x10^3/uL (0.0-0.2) Platelet Estimate Adequate (ADEQUATE) Polychromasia Slight Hypochromasia Mod Anisocytosis Slight Microcytosis Slight Urine Collection Type U cath Urine Color Patrica Urine Clarity Clear Urine pH 5.5 Urine Specific [place] 1.020 Urine Protein 100 mg/dL (NEG-TRACE) Urine Glucose (UA) Negative mg/dL (NEG) Urine Ketones (Stick) Trace mg/dL (NEG) Urine Blood Large (NEG) Urine Nitrite Negative (NEG) Urine Bilirubin Small (NEG) Urine Urobilinogen Dipstick 0.2 mg/dL (0.2 mg/dL) Urine Leukocyte Esterase Small (NEG) Urine RBC >40 /HPF (0-2) Urine WBC 1-4 /HPF (0-4) Urine Squamous Epithelial Cells Mod /LPF Urine Transitional Epithelial Cells Few /LPF Urine Bacteria 0 /HPF (0-FEW) Urine Hyaline Casts Moderate /HPF Urine Mucus Mod /LPF Sodium Level 140 mmol/L (136-145) 140 mmol/L (136-145) Potassium Level 4.3 mmol/L (3.5-5.1) 4.9 mmol/L (3.5-5.1) Chloride Level 108 mmol/L (98-107) 111 mmol/L (98-107) Carbon Dioxide Level 23 mmol/L (21-32) 22 mmol/L (21-32) Anion Gap 9 (6-14) 7 (6-14) Blood Urea Nitrogen 23 mg/dL (7-20) 25 mg/dL (7-20) Creatinine 1.9 mg/dL (0.6-1.0) 1.6 mg/dL (0.6-1.0) Estimated GFR (Cockcroft-Gault) 33.1 40.3 BUN/Creatinine Ratio 12 (6-20) Glucose Level 93 mg/dL (70-99) 98 mg/dL (70-99) Calcium Level 9.2 mg/dL (8.5-10.1) 8.0 mg/dL (8.5-10.1) Magnesium Level 1.5 mg/dL (1.8-2.4) 2.1 mg/dL (1.8-2.4) Total Bilirubin 0.1 mg/dL (0.2-1.0) Aspartate Amino Transf (AST/SGOT) 11 U/L (15-37) Alanine Aminotransferase (ALT/SGPT) 12 U/L (14-59) Alkaline Phosphatase 57 U/L (46-116) Creatine Kinase 90 U/L (26-192) Creatine Kinase MB (Mass) < 0.5 ng/mL (0.0-3.6) Creatine Kinase MB Relative Index 0.6 % (0-4) Troponin I Quantitative < 0.017 ng/mL (0.000-0.055) < 0.017 ng/mL (0.000-0.055) Total Protein 6.8 g/dL (6.4-8.2) Albumin 2.5 g/dL (3.4-5.0) Albumin/Globulin Ratio 0.6 (1.0-1.7) Nasal Screen MRSA (PCR) Negative (Negative) Triglycerides Level 153 mg/dL (0-150) Cholesterol Level 142 mg/dL (0-200) LDL Cholesterol, Calculated 75 mg/dL (0-100) VLDL Cholesterol, Calculated 31 mg/dL (0-40) Non-HDL Cholesterol Calculated 106 mg/dL (0-129) HDL Cholesterol 36 mg/dL (40-60) Cholesterol/HDL Ratio 3.9 Thyroid Stimulating Hormone (TSH) 1.223 uIU/mL (0.358-3.74) Valproic Acid (Depakene) Level 56 mcg/mL (50-100) Valproic Acid Last Dose Date Unknown Valproic Acid Last Dose Time Unknown Microbiology 01/03/17 Urine Culture - Preliminary, Resulted 01/03/17 Urine Culture Result 1 (DEVON) - Preliminary, Resulted Medications Current Medications Sodium Chloride 1,000 ml @ 1,000 mls/hr 1X ONCE IV Last administered on 14:17; Start 01/03/17 at 14:30; Stop 01/03/17 at 15:29; Status DC Magnesium Sulfate/ Dextrose 100 ml @ 100 mls/hr 1X ONCE IV Last administered on 01/03/17 16:44; Start 01/03/17 at 16:30; Stop 01/03/17 at 17:29; Status DC Ondansetron HCl (Zofran) 4 mg PRN Q8HRS PRN IV NAUSEA/VOMITING; Start 01/03/17 at 16:30; Stop 01/03/17 at 16:30; Status DC Sodium Chloride 1,000 ml @ 100 mls/hr Q10H IV Last administered on 01/04/17 09 :28; Start 01/03/17 at 16:21; Stop 01/04/17 at 16:20; Status DC Acetaminophen (Tylenol) 650 mg PRN Q4HRS PRN PO FEVER Last administered on 22:05; Start 01/03/17 at 16:30; Stop 01/04/17 at 16:29; Status DC Ondansetron HCl (Zofran) 4 mg PRN Q6HRS PRN IV NAUSEA/VOMITING; Start 01/03/17 at 16:30; Stop 01/04/17 at 16:29; Status DC Magnesium Sulfate/ Dextrose 50 ml @ 25 mls/hr 1X ONCE IV Last administered on 01/03/17 21:00; Start 01/03/17 at 16:45; Stop 01/03/17 at 18:44; Status DC Enoxaparin Sodium (Lovenox 40mg Syringe) 40 mg Q12HR SQ Last administered on 09:31; Start 01/03/17 at 21:00; Stop 01/04/17 at 13:22; Status DC Acetaminophen (Tylenol) 650 mg PRN Q6HRS PRN PO PAIN/TEMP; Start 01/03/17 at 18: 30 Aspirin (Children'S Aspirin) 81 mg DAILY PO Last administered on 01/05/17 09:48 ; Start 01/04/17 at 09:00 Clonazepam (KlonoPIN) 1 mg PRN BID PRN PO ANXIETY / AGITATION; Start 01/03/17 at 18:30 Famotidine (Pepcid) 20 mg DAILY PO Last administered on 01/05/17 09:48; Start 01/04/17 at 09:00 Guaifenesin (Robitussin) 200 mg PRN Q4HRS PRN PO COUGH; Start 01/03/17 at 18:30 Levothyroxine Sodium (Synthroid) 75 mcg DAILY07 PO Last administered on 06:02; Start 01/04/17 at 07:00 Magnesium Hydroxide (Milk Of Magnesia) 2,400 mg PRN DAILY PRN PO CONSTIPATION; Start 01/03/17 at 18:30 Risperidone (RisperDAL CONSTA) 50 mg Q2WKS@2100 IM ; Start 01/07/17 at 21:00 Topiramate (Topamax) 100 mg BID PO Last administered on 01/05/17 09:48; Start 01/03/17 at 21:00 Valproic Acid (Depakene) 750 mg BID PO Last administered on 01/05/17 09:47; Start 01/03/17 at 21:00 Clonazepam (KlonoPIN) 2 mg BID PO Last administered on 01/05/17 09:48; Start at 21:00 Multivitamins (Thera M Plus) 1 tab DAILY PO Last administered on 01/05/17 09:48 ; Start 01/04/17 at 09:00 Risperidone (RisperDAL) 4 mg BID PO Last administered on 01/05/17 09:48; Start 01/03/17 at 21:00 Al Hydroxide/Mg Hydroxide (Mylanta Plus Xs) 30 ml PRN Q4HRS PRN PO HEARTBURN / GAS/ INDIGESTION; Start 01/03/17 at 19:15 Loperamide HCl (Imodium) 2 mg PRN Q15MIN PRN PO DIARRHEA; Start 01/03/17 at 19: 30 Nystatin (Nystop) 1 saw DAILY TP Last administered on 01/05/17 09:57; Start 01/04/17 at 09:00 Nystatin (Nystop) 1 saw PRN BID PRN TP CANDIDIASIS; Start 01/03/17 at 19:30 Enoxaparin Sodium (Lovenox 40mg Syringe) 40 mg DAILY SQ Last administered on 09:47; Start 01/05/17 at 09:00 Labetalol HCl (Normodyne) 20 mg PRN Q2HR PRN IVP HYPERTENSION, SEE COMMENTS; Start 01/05/17 at 09:30 Labetalol HCl (Normodyne) 20 mg 1X ONCE IVP Last administered on 01/05/17 09: 58; Start 01/05/17 at 09:45; Stop 01/05/17 at 09:46; Status DC Loperamide HCl (Imodium) 2 mg PRN Q15MIN PRN PO DIARRHEA; Start 01/05/17 at 09: 30 Simethicone (Gas-X) 80 mg PRN AFTMEALHC PRN PO GAS / BLOATING; Start 01/05/17 at 09:30 Active Scripts Active Reported Maalox Advanced Suspension (Mag Hydrox/Aluminum Hyd/Simeth) 355 Ml Oral.susp 200 Mg PO Q4HRS PRN Risperdal Consta (Risperidone Microspheres) 37.5 Mg/2 Ml Disp.syrin 50 Mg IM QEVNG Pepcid (Famotidine) 20 Mg Tablet 20 Mg PO DAILY Valproic Acid (Valproic Acid (As Sodium Salt)) 250 Mg/5 Ml Solution 750 Mg PO BID Topamax (Topiramate) 100 Mg Tablet 1 Tab PO BID Risperdal (Risperidone) 4 Mg Tablet 1 Tab PO BID Simethicone 125 Mg Capsule 125 Mg PO Multivitamins (Multivitamin) 1 Each Tablet 1 Tab PO DAILY Milk Of Magnesia (Magnesium Hydroxide) 400 Mg/5 Ml Oral.susp 400 Mg PO DAILY PRN Anti-Diarrhea (Loperamide Hcl) 2 Mg Tablet 2 Mg PO PRN Levothyroxine Sodium 75 Mcg Tablet 1 Tab PO DAILY Ashley-Tussin (Guaifenesin) 100 Mg/5 Ml Liquid 200 Mg PO Q4HRS PRN Clonazepam 2 Mg Tablet 1 Tab PO BID PRN Clonazepam 1 Mg Tablet 1 Tab PO BID PRN Aspirin 81 Mg Tab.chew 1 Tab PO DAILY Tylenol (Acetaminophen) 325 Mg Tablet 2 Tab PO PRN Q6HRS Vitals/I & O Vital Sign - Last 24 Hours 01/04/17 01/04/17 01/04/17 01/04/17 11:00 15:00 19:15 23:15 Temp 97.5 98.1 98.2 97.9 97.5 98.1 98.2 97.9 Pulse 73 79 58 73 Resp 20 20 18 18 B/P (MAP) 144/78 (100) 149/84 (105) 166/77 (106) 145/81 (102) Pulse Ox 100 100 95 99 O2 Delivery Room Air Room Air Room Air Room Air 01/05/17 01/05/17 01/05/17 03:15 07:16 09:58 Temp 98.2 97.5 98.2 97.5 Pulse 86 65 65 Resp 18 18 B/P (MAP) 162/86 (111) 183/94 (123) 183/94 Pulse Ox 99 98 O2 Delivery Room Air Room Air Intake and Output 01/04/17 01/04/17 01/05/17 15:00 23:00 07:00 Intake Total 900 ml 300 ml Balance 900 ml 300 ml SANAM TAPIA MD Jan 05, 2017 10:19
[2017-01-05 11:14] VITALS: BP 136/100
[2017-01-05 12:13] LABS: % SAT IRON 27 % (15-34); IRON,SERUM 69 ug/dL (50-170)
--- NOTE | 2017-01-05 12:22 | PDOC ---
PROGRESS NOTES Chief Complaint Chief Complaint 1. Syncope and collapse, likely vagal after a meal, r.o other potential causes ( SZ, arrhythmia etc) 2. Sz hx on AED 3. SNU resident 4. Obesity BMI 43 5, MOD PCM 6. HYpotension, transient post syncope 7. MICROCYTIC ANEMIA 8. ENCAPHOLAPTHY, BASELINE History of Present Illness History of Present Illness nO acute issues overnight CArdiac tests neg BUt pt thinks she is 12 y/o MCV 70s, Hgb 10 VS stable Denies melena I asked her if she has ever had c scope done, she says "yes when I was 12" Clearly not reliable historian SNu resident - no family at bedside On ASA 81 in SNU and lovenox SQ here PLAn: Iron studies FOBT GEt GI - due c scope Unable to dc to SNU today Vitals Vitals Vital Signs Date Time Temp Pulse Resp B/P (MAP) Pulse Ox O2 Delivery O2 Flow Rate FiO2 01/05/17 11:14 97.8 70 18 136/100 (112) 94 Room Air 97.8 Physical Exam General: Alert, Oriented X3, Cooperative, No acute distress Heart: Regular rate, Normal S1, Normal S2, Other (soft systolic murmur ) Abdomen: Soft, No tenderness Extremities: No edema, Normal pulses Skin: No breakdown, No significant lesion Labs LABS Laboratory Tests Test 01/05/17 11:25 Iron Level 69 ug/dL (50-170) Total Iron Binding Capacity 256 ug/dL (250-450) Iron Saturation 27 % (15-34) Review of Systems Review of Systems unreliable Assessment and Plan Assessmemt and Plan Problems Medical Problems: (1) Hypomagnesemia Status: Acute (2) Renal insufficiency Status: Acute (3) Severe protein-calorie malnutrition Status: Acute Problems: Comment Review of Relevant I have reviewed the following items bianca (where applicable) has been applied. Labs Laboratory Tests Test 01/03/17 14:14 01/03/17 22:20 01/04/17 03:30 01/05/17 11:25 White Blood Count 3.7 x10^3/uL (4.0-11.0) 3.7 x10^3/uL (4.0-11.0) Red Blood Count 4.62 x10^6/uL (3.50-5.40) 4.47 x10^6/uL (3.50-5.40) Hemoglobin 10.5 g/dL (12.0-15.5) 10.2 g/dL (12.0-15.5) Hematocrit 33.9 % (36.0-47.0) 33.4 % (36.0-47.0) Mean Corpuscular Volume 73 fL (79-100) 75 fL (79-100) Mean Corpuscular Hemoglobin 23 pg (25-35) 23 pg (25-35) Mean Corpuscular Hemoglobin Concent 31 g/dL (31-37) 31 g/dL (31-37) Red Cell Distribution Width 16.5 % (11.5-14.5) 17.0 % (11.5-14.5) Platelet Count 152 x10^3/uL (140-400) 143 x10^3/uL (140-400) Neutrophils (%) (Auto) 62 % (31-73) 47 % (31-73) Lymphocytes (%) (Auto) 25 % (24-48) 44 % (24-48) Monocytes (%) (Auto) 13 % (0-9) 9 % (0-9) Eosinophils (%) (Auto) 0 % (0-3) 0 % (0-3) Basophils (%) (Auto) 0 % (0-3) 0 % (0-3) Neutrophils # (Auto) 2.3 x10^3uL (1.8-7.7) 1.7 x10^3uL (1.8-7.7) Lymphocytes # (Auto) 0.9 x10^3/uL (1.0-4.8) 1.6 x10^3/uL (1.0-4.8) Monocytes # (Auto) 0.5 x10^3/uL (0.0-1.1) 0.3 x10^3/uL (0.0-1.1) Eosinophils # (Auto) 0.0 x10^3/uL (0.0-0.7) 0.0 x10^3/uL (0.0-0.7) Basophils # (Auto) 0.0 x10^3/uL (0.0-0.2) 0.0 x10^3/uL (0.0-0.2) Platelet Estimate Adequate (ADEQUATE) Polychromasia Slight Hypochromasia Mod Anisocytosis Slight Microcytosis Slight Urine Collection Type U cath Urine Color Patrica Urine Clarity Clear Urine pH 5.5 Urine Specific [place] 1.020 Urine Protein 100 mg/dL (NEG-TRACE) Urine Glucose (UA) Negative mg/dL (NEG) Urine Ketones (Stick) Trace mg/dL (NEG) Urine Blood Large (NEG) Urine Nitrite Negative (NEG) Urine Bilirubin Small (NEG) Urine Urobilinogen Dipstick 0.2 mg/dL (0.2 mg/dL) Urine Leukocyte Esterase Small (NEG) Urine RBC >40 /HPF (0-2) Urine WBC 1-4 /HPF (0-4) Urine Squamous Epithelial Cells Mod /LPF Urine Transitional Epithelial Cells Few /LPF Urine Bacteria 0 /HPF (0-FEW) Urine Hyaline Casts Moderate /HPF Urine Mucus Mod /LPF Sodium Level 140 mmol/L (136-145) 140 mmol/L (136-145) Potassium Level 4.3 mmol/L (3.5-5.1) 4.9 mmol/L (3.5-5.1) Chloride Level 108 mmol/L (98-107) 111 mmol/L (98-107) Carbon Dioxide Level 23 mmol/L (21-32) 22 mmol/L (21-32) Anion Gap 9 (6-14) 7 (6-14) Blood Urea Nitrogen 23 mg/dL (7-20) 25 mg/dL (7-20) Creatinine 1.9 mg/dL (0.6-1.0) 1.6 mg/dL (0.6-1.0) Estimated GFR (Cockcroft-Gault) 33.1 40.3 BUN/Creatinine Ratio 12 (6-20) Glucose Level 93 mg/dL (70-99) 98 mg/dL (70-99) Calcium Level 9.2 mg/dL (8.5-10.1) 8.0 mg/dL (8.5-10.1) Magnesium Level 1.5 mg/dL (1.8-2.4) 2.1 mg/dL (1.8-2.4) Total Bilirubin 0.1 mg/dL (0.2-1.0) Aspartate Amino Transf (AST/SGOT) 11 U/L (15-37) Alanine Aminotransferase (ALT/SGPT) 12 U/L (14-59) Alkaline Phosphatase 57 U/L (46-116) Creatine Kinase 90 U/L (26-192) Creatine Kinase MB (Mass) < 0.5 ng/mL (0.0-3.6) Creatine Kinase MB Relative Index 0.6 % (0-4) Troponin I Quantitative < 0.017 ng/mL (0.000-0.055) < 0.017 ng/mL (0.000-0.055) Total Protein 6.8 g/dL (6.4-8.2) Albumin 2.5 g/dL (3.4-5.0) Albumin/Globulin Ratio 0.6 (1.0-1.7) Nasal Screen MRSA (PCR) Negative (Negative) Triglycerides Level 153 mg/dL (0-150) Cholesterol Level 142 mg/dL (0-200) LDL Cholesterol, Calculated 75 mg/dL (0-100) VLDL Cholesterol, Calculated 31 mg/dL (0-40) Non-HDL Cholesterol Calculated 106 mg/dL (0-129) HDL Cholesterol 36 mg/dL (40-60) Cholesterol/HDL Ratio 3.9 Thyroid Stimulating Hormone (TSH) 1.223 uIU/mL (0.358-3.74) Valproic Acid (Depakene) Level 56 mcg/mL (50-100) Valproic Acid Last Dose Date Unknown Valproic Acid Last Dose Time Unknown Iron Level 69 ug/dL (50-170) Total Iron Binding Capacity 256 ug/dL (250-450) Iron Saturation 27 % (15-34) Laboratory Tests Test 01/05/17 11:25 Iron Level 69 ug/dL (50-170) Total Iron Binding Capacity 256 ug/dL (250-450) Iron Saturation 27 % (15-34) Microbiology 01/03/17 Urine Culture - Preliminary, Resulted 01/03/17 Urine Culture Result 1 (DEVON) - Preliminary, Resulted Medications Current Medications Sodium Chloride 1,000 ml @ 1,000 mls/hr 1X ONCE IV Last administered on 14:17; Start 01/03/17 at 14:30; Stop 01/03/17 at 15:29; Status DC Magnesium Sulfate/ Dextrose 100 ml @ 100 mls/hr 1X ONCE IV Last administered on 01/03/17 16:44; Start 01/03/17 at 16:30; Stop 01/03/17 at 17:29; Status DC Ondansetron HCl (Zofran) 4 mg PRN Q8HRS PRN IV NAUSEA/VOMITING; Start 01/03/17 at 16:30; Stop 01/03/17 at 16:30; Status DC Sodium Chloride 1,000 ml @ 100 mls/hr Q10H IV Last administered on 01/04/17 09 :28; Start 01/03/17 at 16:21; Stop 01/04/17 at 16:20; Status DC Acetaminophen (Tylenol) 650 mg PRN Q4HRS PRN PO FEVER Last administered on 22:05; Start 01/03/17 at 16:30; Stop 01/04/17 at 16:29; Status DC Ondansetron HCl (Zofran) 4 mg PRN Q6HRS PRN IV NAUSEA/VOMITING; Start 01/03/17 at 16:30; Stop 01/04/17 at 16:29; Status DC Magnesium Sulfate/ Dextrose 50 ml @ 25 mls/hr 1X ONCE IV Last administered on 01/03/17 21:00; Start 01/03/17 at 16:45; Stop 01/03/17 at 18:44; Status DC Enoxaparin Sodium (Lovenox 40mg Syringe) 40 mg Q12HR SQ Last administered on 09:31; Start 01/03/17 at 21:00; Stop 01/04/17 at 13:22; Status DC Acetaminophen (Tylenol) 650 mg PRN Q6HRS PRN PO PAIN/TEMP; Start 01/03/17 at 18: 30 Aspirin (Children'S Aspirin) 81 mg DAILY PO Last administered on 01/05/17 09:48 ; Start 01/04/17 at 09:00 Clonazepam (KlonoPIN) 1 mg PRN BID PRN PO ANXIETY / AGITATION; Start 01/03/17 at 18:30 Famotidine (Pepcid) 20 mg DAILY PO Last administered on 01/05/17 09:48; Start 01/04/17 at 09:00 Guaifenesin (Robitussin) 200 mg PRN Q4HRS PRN PO COUGH; Start 01/03/17 at 18:30 Levothyroxine Sodium (Synthroid) 75 mcg DAILY07 PO Last administered on 06:02; Start 01/04/17 at 07:00 Magnesium Hydroxide (Milk Of Magnesia) 2,400 mg PRN DAILY PRN PO CONSTIPATION; Start 01/03/17 at 18:30 Risperidone (RisperDAL CONSTA) 50 mg Q2WKS@2100 IM ; Start 01/07/17 at 21:00 Topiramate (Topamax) 100 mg BID PO Last administered on 01/05/17 09:48; Start 01/03/17 at 21:00 Valproic Acid (Depakene) 750 mg BID PO Last administered on 01/05/17 09:47; Start 01/03/17 at 21:00 Clonazepam (KlonoPIN) 2 mg BID PO Last administered on 01/05/17 09:48; Start at 21:00 Multivitamins (Thera M Plus) 1 tab DAILY PO Last administered on 01/05/17 09:48 ; Start 01/04/17 at 09:00 Risperidone (RisperDAL) 4 mg BID PO Last administered on 01/05/17 09:48; Start 01/03/17 at 21:00 Al Hydroxide/Mg Hydroxide (Mylanta Plus Xs) 30 ml PRN Q4HRS PRN PO HEARTBURN / GAS/ INDIGESTION; Start 01/03/17 at 19:15 Loperamide HCl (Imodium) 2 mg PRN Q15MIN PRN PO DIARRHEA; Start 01/03/17 at 19: 30 Nystatin (Nystop) 1 saw DAILY TP Last administered on 01/05/17 09:57; Start 01/04/17 at 09:00 Nystatin (Nystop) 1 saw PRN BID PRN TP CANDIDIASIS; Start 01/03/17 at 19:30 Enoxaparin Sodium (Lovenox 40mg Syringe) 40 mg DAILY SQ Last administered on 09:47; Start 01/05/17 at 09:00 Labetalol HCl (Normodyne) 20 mg PRN Q2HR PRN IVP HYPERTENSION, SEE COMMENTS; Start 01/05/17 at 09:30 Labetalol HCl (Normodyne) 20 mg 1X ONCE IVP Last administered on 01/05/17 09: 58; Start 01/05/17 at 09:45; Stop 01/05/17 at 09:46; Status DC Loperamide HCl (Imodium) 2 mg PRN Q15MIN PRN PO DIARRHEA; Start 01/05/17 at 09: 30 Simethicone (Gas-X) 80 mg PRN AFTMEALHC PRN PO GAS / BLOATING; Start 01/05/17 at 09:30 Active Scripts Active Reported Maalox Advanced Suspension (Mag Hydrox/Aluminum Hyd/Simeth) 355 Ml Oral.susp 200 Mg PO Q4HRS PRN Risperdal Consta (Risperidone Microspheres) 37.5 Mg/2 Ml Disp.syrin 50 Mg IM QEVNG Pepcid (Famotidine) 20 Mg Tablet 20 Mg PO DAILY Valproic Acid (Valproic Acid (As Sodium Salt)) 250 Mg/5 Ml Solution 750 Mg PO BID Topamax (Topiramate) 100 Mg Tablet 1 Tab PO BID Risperdal (Risperidone) 4 Mg Tablet 1 Tab PO BID Simethicone 125 Mg Capsule 125 Mg PO Multivitamins (Multivitamin) 1 Each Tablet 1 Tab PO DAILY Milk Of Magnesia (Magnesium Hydroxide) 400 Mg/5 Ml Oral.susp 400 Mg PO DAILY PRN Anti-Diarrhea (Loperamide Hcl) 2 Mg Tablet 2 Mg PO PRN Levothyroxine Sodium 75 Mcg Tablet 1 Tab PO DAILY Ashley-Tussin (Guaifenesin) 100 Mg/5 Ml Liquid 200 Mg PO Q4HRS PRN Clonazepam 2 Mg Tablet 1 Tab PO BID PRN Clonazepam 1 Mg Tablet 1 Tab PO BID PRN Aspirin 81 Mg Tab.chew 1 Tab PO DAILY Tylenol (Acetaminophen) 325 Mg Tablet 2 Tab PO PRN Q6HRS Vitals/I & O Vital Sign - Last 24 Hours 01/04/17 01/04/17 01/04/17 01/05/17 15:00 19:15 23:15 03:15 Temp 98.1 98.2 97.9 98.2 98.1 98.2 97.9 98.2 Pulse 79 58 73 86 Resp 20 18 18 18 B/P (MAP) 149/84 (105) 166/77 (106) 145/81 (102) 162/86 (111) Pulse Ox 100 95 99 99 O2 Delivery Room Air Room Air Room Air Room Air 01/05/17 01/05/17 01/05/17 01/05/17 07:16 08:00 09:58 11:14 Temp 97.5 97.8 97.5 97.8 Pulse 65 65 70 Resp 18 18 B/P (MAP) 183/94 (123) 183/94 136/100 (112) Pulse Ox 98 94 O2 Delivery Room Air Room Air Room Air Intake and Output 01/04/17 01/04/17 01/05/17 15:00 23:00 07:00 Intake Total 900 ml 300 ml Balance 900 ml 300 ml VIRGINIA DAMON MD Jan 05, 2017 12:22
[2017-01-05] MEDS ORDERED: POLYETHYLENE GLYCOL 3350 17 GM PACKET. PO PRN (14:30)
--- NOTE | 2017-01-05 14:31 | PDOC2 ---
GI CONSULT Reason For Consult: Microcytic anemia, needs colonoscopy HPI: HPI: 56 y/o female w/ intellectual disability from custodial admitted for syncope. Neuro and cardiology have seen, imaging as below, considering event monitor as an outpatient. GI asked to see for microcytic anemia. She offers no GI complaints and denies nausea, abd pain, reflux/heartburn, change in appetite, weight loss, diarrhea, and constipation. She denies hematemesis, hematochezia, and melena. Denies CP and SOA. She thinks she vomited once awhile ago but has been eating well here. She has not had a bowel movement since admission. She thinks she has been anemic before. No GI concerns per staff. Labs significant for WBC 3.7, Hgb 10.5 to 10.2 (no earlier labs for comparison) , low indices w/ elevated RDW, normal plt, normal iron profile, normal TSH, and Cr (1.6). Home meds list ASA and famotidine. I asked her about listed allergy of iron dextran; she says she "got better" with iron. She says she had a colonoscopy when she was a baby. PMH: PMH: from chart - HTN, HLD, extrapyramidal syndrome, intellectual disability, ?GERD, anxiety/depression, schizophrenia, hypothyroidism, epilepsy FH: Family History: Other (unknown) Social History: Smoke: No ALCOHOL: none Drugs: None ROS: GEN: Denies fevers, chills, sweats HEENT: Denies blurred vision, sore throat CV: Denies chest pain RESP: Denies shortness of air, cough GI: Per HPI : Denies hematuria, dysuria ENDO: Denies weight changes NEURO: Denies confusion, dizziness MSK: Denies weakness, joint pain/swelling SKIN: Denies jaundice, pruritus Vitals: Vitals: Vital Signs Date Time Temp Pulse Resp B/P (MAP) Pulse Ox O2 Delivery O2 Flow Rate FiO2 01/05/17 11:14 97.8 70 18 136/100 (112) 94 Room Air 97.8 Labs: Labs: Laboratory Tests Test 01/05/17 11:25 Iron Level 69 ug/dL (50-170) Total Iron Binding Capacity 256 ug/dL (250-450) Iron Saturation 27 % (15-34) Allergies: Coded Allergies: haloperidol (Verified Allergy, Intermediate, UNKNOWN, 11/09/15) iron dextran complex (Verified Allergy, Intermediate, UNKNOWN, 11/09/15) Medications: Current Medications Medications (Trade) Dose Ordered Sig/Horace Route PRN Reason Start Time Stop Time Status Last Admin Dose Admin Enoxaparin Sodium (Lovenox 40mg Syringe) 40 mg DAILY SQ 01/05/17 09:00 01/05/17 09:47 Labetalol HCl (Normodyne) 20 mg 1X ONCE IVP 01/05/17 09:45 01/05/17 09:46 DC 01/05/17 09:58 Imaging: Imaging: CXR IMPRESSION: No acute or focal process is seen in the chest. Head CT IMPRESSION: No acute intracranial findings. Echocardiogram <Conclusion> The left ventricular systolic function is normal and the ejection fraction is within normal range. The Ejection Fraction is 55-60%. There is normal LV segmental wall motion. PE: GEN: NAD HEENT: Atraumatic, +strabismus LUNGS: CTAB anteriorly HEART: RRR +murm ABD: obese, NABS, S/NT EXTREMITY: No edema SKIN: No rashes, no jaundice NEURO/PSYCH: awake/alert, responds appropriately A/P: A/P: Syncope, h/o epilepsy, h/o extrapyramidal syndrome, psych illnesses -no further workup per cardio and neuro Microcytic anemia w/ normal iron profile -no overt bleeding -listed allergies include iron dextran, unclear reaction -on H2 keke, also ASA CRC screen -?previous colonoscopy ---> difficult history w/ psych/intellectual issues -- Not iron deficient - ?thalassemia Could pursue colonoscopy as outpt. LOURDES LUCIANO Jan 05, 2017 14:30
[2017-01-05 15:47] VITALS: BP 142/90
[2017-01-05 19:58] VITALS: BP 163/95
[2017-01-05 22:21] VITALS: BP 145/76
[2017-01-06 03:08] VITALS: BP 142/89
[2017-01-06] MEDS: LEVOTHYROXINE 75 MCG TABLET PO SCH (06:26)
[2017-01-06 07:00] VITALS: BP 151/83
[2017-01-06] MEDS: ASPIRIN CHEWABLE 81 MG TABLET. PO SCH (09:24)
[2017-01-06] MEDS: VALPROIC ACID (AS SODIUM SALT) 250 MG/5 ML SOLUTION. PO SCH (09:24)
[2017-01-06] MEDS: TOPIRAMATE 100 MG TABLET. PO SCH (09:24)
[2017-01-06] MEDS: FAMOTIDINE 20 MG TABLET. PO SCH (09:24)
[2017-01-06] MEDS: MULTIVITAMIN with MINERAL TABLET. PO SCH (09:24)
[2017-01-06] MEDS: clonazePAM 1 MG TABLET PO SCH (09:24)
[2017-01-06] MEDS: NYSTATIN TOPICAL POWDER 15GM BOTTLE. TP SCH (09:25)
[2017-01-06] MEDS: ENOXAPARIN 40 MG/0.4 ML SYRINGE. SQ SCH (09:25)
[2017-01-06] MEDS: risperiDONE 1 MG TABLET. PO SCH (09:25)
--- NOTE | 2017-01-06 10:36 | PDOC3 ---
Discharge Summary Visit Information Date of Admission: Jan 03, 2017 Date of Discharge: Jan 06, 2017 Admitting Diagnosis Comment: 1. Syncope and collapse, likely vagal after a meal, r.o other potential causes ( SZ, arrhythmia etc) 2. Sz hx on AED 3. SNU resident 4. Obesity BMI 43 5, MOD PCM 6. HYpotension, transient post syncope 7. MICROCYTIC ANEMIA 8. ENCAPHOLAPTHY, BASELINE Final Diagnosis Problems Medical Problems: (1) Hypomagnesemia Status: Acute (2) Renal insufficiency Status: Acute (3) Severe protein-calorie malnutrition Status: Acute Brief Hospital Course Allergies Allergies Coded Allergies Type Severity Reaction Last Updated Verified haloperidol Allergy Intermediate UNKNOWN 11/09/15 Yes iron dextran complex Allergy Intermediate UNKNOWN 11/09/15 Yes Vital Signs Vital Signs Date Time Temp Pulse Resp B/P (MAP) Pulse Ox O2 Delivery O2 Flow Rate FiO2 01/06/17 08:00 Room Air 01/06/17 07:00 97.9 73 18 151/83 (105) 99 97.9 Lab Results Laboratory Tests Test 01/05/17 11:25 Iron Level 69 ug/dL (50-170) Total Iron Binding Capacity 256 ug/dL (250-450) Iron Saturation 27 % (15-34) Laboratory Tests Test 01/05/17 11:25 Iron Level 69 ug/dL (50-170) Total Iron Binding Capacity 256 ug/dL (250-450) Iron Saturation 27 % (15-34) Brief Hospital Course Ms. Guzman is a 56 old AA female, SNU resident with some developmental delay passed out while eating lemon chicken, CArdiac and neuro w/up neg, hence really likely vagal. Course remarkable for stable microcytic anemia, FOBT pending, already on KRISHNA supplements, no melena,hematochezia, GI consulted, ok for OP c scope and dc now,. STable to dc SNU with cont of home meds. Pt seen and examined COnsult: neuro, cards, GI Discharge Information Condition at Discharge: Improved, Stable Disposition/Orders: Other (snu) Scheduled Acetaminophen (Tylenol), 2 TAB PO PRN Q6HRS, (Reported) Aspirin (Aspirin), 1 TAB PO DAILY, (Reported) Famotidine (Pepcid), 20 MG PO DAILY, (Reported) Levothyroxine Sodium (Levothyroxine Sodium), 1 TAB PO DAILY, (Reported) Multivitamin (Multivitamins), 1 TAB PO DAILY, (Reported) Risperidone (Risperdal), 1 TAB PO BID, (Reported) Risperidone Microspheres (Risperdal Consta), 50 MG IM QEVNG, (Reported) Topiramate (Topamax), 1 TAB PO BID, (Reported) Valproic Acid (As Sodium Salt) (Valproic Acid), 750 MG PO BID, (Reported) Scheduled PRN Clonazepam (Clonazepam), 1 TAB PO BID PRN for ANXIETY / AGITATION, (Reported) Clonazepam (Clonazepam), 1 TAB PO BID PRN for ANXIETY / AGITATION, (Reported) Guaifenesin (Ashley-Tussin), 200 MG PO Q4HRS PRN for COUGH, (Reported) Loperamide Hcl (Anti-Diarrhea), 2 MG PO for DIARRHEA, (Reported) Mag Hydrox/Aluminum Hyd/Simeth (Maalox Advanced Suspension), 200 MG PO Q4HRS PRN for HEARTBURN / GAS, (Reported) Magnesium Hydroxide (Milk Of Magnesia), 400 MG PO DAILY PRN for CONSTIPATION, ( Reported) Miscellaneous Medications Simethicone (Simethicone), 125 MG PO, (Reported) VIRGINIA DAMON MD Jan 06, 2017 10:36
[2017-01-06 10:45] VITALS: BP_SYST 145; BP_SYST 45; BP_DIAS 79
--- NOTE | 2017-01-06 11:43 | PDOC ---
Subjective: Subjective: "I've been waiting on you, I need to ask you so many questions" then can't think of questions. Objective: Vital Signs: Vital Signs Date Time Temp Pulse Resp B/P (MAP) Pulse Ox O2 Delivery O2 Flow Rate FiO2 01/06/17 10:45 97.9 72 18 45/79 (68) 99 Room Air 97.9 PE: GEN: NAD LUNGS: clear HEART: RRR ABD: soft, non-tender NEURO/PSYCH: confused A/P: Microcytic anemia w/ normal iron profile -no overt bleeding, multi-vitamin w/ iron? -on H2 keke, also ASA -- Note DC plans, can pursue colonoscopy as outpt. LOURDES LUCIANO Jan 06, 2017 11:43
--- NOTE | 2017-01-06 14:24 | PDOC ---
PROGRESS NOTES Assessment Problems Medical Problems: (1) Hypomagnesemia Status: Acute (2) Renal insufficiency Status: Acute (3) Severe protein-calorie malnutrition Status: Acute Vasovagal syncope History of epilepsy, on anticonvulsants History of multiple psychiatric illnesses as listed above. History of extrapyramidal syndrome, no dyskinesias at present. Plan No additional neurological studies. Continue current anticonvulsants. Agree with discharge Subjective Knows she is being discharged today. Objective Vital Signs Date Time Temp Pulse Resp B/P (MAP) Pulse Ox O2 Delivery O2 Flow Rate FiO2 01/06/17 10:45 97.9 72 18 45/79 (68) 99 Room Air 97.9 Intake and Output 01/06/17 07:00 Intake Total 1450 ml Output Total 200 ml Balance 1250 ml Intake Oral 1450 ml Output Urine Total 200 ml # Voids 10 PHYSICAL EXAM Alert. Oriented to person only, consistent with intellectual disability. PERRL. EOMI, bilateral strabismus. CN: no focal findings. Muscle tone: normal. Muscle strength: 4/5 DTR: 1+ Plantar reflex: flexor Gait: not examined in bed. Sensory exam: no abnormal findings. No cerebellar signs elicited. Review of Relevant I have reviewed the following items bianca (where applicable) has been applied. Labs Laboratory Tests Test 01/05/17 11:25 Iron Level 69 ug/dL (50-170) Total Iron Binding Capacity 256 ug/dL (250-450) Iron Saturation 27 % (15-34) Microbiology 01/03/17 Urine Culture - Preliminary, Resulted 01/03/17 Urine Culture Result 1 (DEVON) - Preliminary, Resulted Medications Current Medications Sodium Chloride 1,000 ml @ 1,000 mls/hr 1X ONCE IV Last administered on 14:17; Start 01/03/17 at 14:30; Stop 01/03/17 at 15:29; Status DC Magnesium Sulfate/ Dextrose 100 ml @ 100 mls/hr 1X ONCE IV Last administered on 01/03/17 16:44; Start 01/03/17 at 16:30; Stop 01/03/17 at 17:29; Status DC Ondansetron HCl (Zofran) 4 mg PRN Q8HRS PRN IV NAUSEA/VOMITING; Start 01/03/17 at 16:30; Stop 01/03/17 at 16:30; Status DC Sodium Chloride 1,000 ml @ 100 mls/hr Q10H IV Last administered on 01/04/17 09 :28; Start 01/03/17 at 16:21; Stop 01/04/17 at 16:20; Status DC Acetaminophen (Tylenol) 650 mg PRN Q4HRS PRN PO FEVER Last administered on 22:05; Start 01/03/17 at 16:30; Stop 01/04/17 at 16:29; Status DC Ondansetron HCl (Zofran) 4 mg PRN Q6HRS PRN IV NAUSEA/VOMITING; Start 01/03/17 at 16:30; Stop 01/04/17 at 16:29; Status DC Magnesium Sulfate/ Dextrose 50 ml @ 25 mls/hr 1X ONCE IV Last administered on 01/03/17 21:00; Start 01/03/17 at 16:45; Stop 01/03/17 at 18:44; Status DC Enoxaparin Sodium (Lovenox 40mg Syringe) 40 mg Q12HR SQ Last administered on 09:31; Start 01/03/17 at 21:00; Stop 01/04/17 at 13:22; Status DC Acetaminophen (Tylenol) 650 mg PRN Q6HRS PRN PO PAIN/TEMP; Start 01/03/17 at 18: 30 Aspirin (Children'S Aspirin) 81 mg DAILY PO Last administered on 01/06/17 09: 24; Start 01/04/17 at 09:00 Clonazepam (KlonoPIN) 1 mg PRN BID PRN PO ANXIETY / AGITATION; Start 01/03/17 at 18:30 Famotidine (Pepcid) 20 mg DAILY PO Last administered on 01/06/17 09:24; Start 01/04/17 at 09:00 Guaifenesin (Robitussin) 200 mg PRN Q4HRS PRN PO COUGH; Start 01/03/17 at 18:30 Levothyroxine Sodium (Synthroid) 75 mcg DAILY07 PO Last administered on 06:26; Start 01/04/17 at 07:00 Magnesium Hydroxide (Milk Of Magnesia) 2,400 mg PRN DAILY PRN PO CONSTIPATION; Start 01/03/17 at 18:30 Risperidone (RisperDAL CONSTA) 50 mg Q2WKS@2100 IM ; Start 01/07/17 at 21:00 Topiramate (Topamax) 100 mg BID PO Last administered on 01/06/17 09:24; Start 01/03/17 at 21:00 Valproic Acid (Depakene) 750 mg BID PO Last administered on 01/06/17 09:24; Start 01/03/17 at 21:00 Clonazepam (KlonoPIN) 2 mg BID PO Last administered on 01/06/17 09:24; Start 01/03/17 at 21:00 Multivitamins (Thera M Plus) 1 tab DAILY PO Last administered on 01/06/17 09: 24; Start 01/04/17 at 09:00 Risperidone (RisperDAL) 4 mg BID PO Last administered on 01/06/17 09:25; Start 01/03/17 at 21:00 Al Hydroxide/Mg Hydroxide (Mylanta Plus Xs) 30 ml PRN Q4HRS PRN PO HEARTBURN / GAS/ INDIGESTION; Start 01/03/17 at 19:15 Loperamide HCl (Imodium) 2 mg PRN Q15MIN PRN PO DIARRHEA; Start 01/03/17 at 19: 30 Nystatin (Nystop) 1 saw DAILY TP Last administered on 01/06/17 09:25; Start at 09:00 Nystatin (Nystop) 1 saw PRN BID PRN TP CANDIDIASIS; Start 01/03/17 at 19:30 Enoxaparin Sodium (Lovenox 40mg Syringe) 40 mg DAILY SQ Last administered on 09:25; Start 01/05/17 at 09:00 Labetalol HCl (Normodyne) 20 mg PRN Q2HR PRN IVP HYPERTENSION, SEE COMMENTS; Start 01/05/17 at 09:30 Labetalol HCl (Normodyne) 20 mg 1X ONCE IVP Last administered on 01/05/17 09: 58; Start 01/05/17 at 09:45; Stop 01/05/17 at 09:46; Status DC Loperamide HCl (Imodium) 2 mg PRN Q15MIN PRN PO DIARRHEA; Start 01/05/17 at 09: 30; Stop 01/05/17 at 15:43; Status DC Simethicone (Gas-X) 80 mg PRN AFTMEALHC PRN PO GAS / BLOATING; Start 01/05/17 at 09:30 Polyethylene Glycol (miraLAX PACKET) 17 gm PRN DAILY PRN PO CONSTIPATION; Start 01/05/17 at 14:30 Active Scripts Active Reported Maalox Advanced Suspension (Mag Hydrox/Aluminum Hyd/Simeth) 355 Ml Oral.susp 200 Mg PO Q4HRS PRN Risperdal Consta (Risperidone Microspheres) 37.5 Mg/2 Ml Disp.syrin 50 Mg IM QEVNG Pepcid (Famotidine) 20 Mg Tablet 20 Mg PO DAILY Valproic Acid (Valproic Acid (As Sodium Salt)) 250 Mg/5 Ml Solution 750 Mg PO BID Topamax (Topiramate) 100 Mg Tablet 1 Tab PO BID Risperdal (Risperidone) 4 Mg Tablet 1 Tab PO BID Simethicone 125 Mg Capsule 125 Mg PO Multivitamins (Multivitamin) 1 Each Tablet 1 Tab PO DAILY Milk Of Magnesia (Magnesium Hydroxide) 400 Mg/5 Ml Oral.susp 400 Mg PO DAILY PRN Anti-Diarrhea (Loperamide Hcl) 2 Mg Tablet 2 Mg PO PRN Levothyroxine Sodium 75 Mcg Tablet 1 Tab PO DAILY Ashley-Tussin (Guaifenesin) 100 Mg/5 Ml Liquid 200 Mg PO Q4HRS PRN Clonazepam 2 Mg Tablet 1 Tab PO BID PRN Clonazepam 1 Mg Tablet 1 Tab PO BID PRN Aspirin 81 Mg Tab.chew 1 Tab PO DAILY Tylenol (Acetaminophen) 325 Mg Tablet 2 Tab PO PRN Q6HRS Vitals/I & O Vital Sign - Last 24 Hours 01/05/17 01/05/17 01/05/17 01/05/17 15:47 19:58 20:00 22:21 Temp 98.1 98.4 98.4 98.1 98.4 98.4 Pulse 74 75 80 Resp 18 18 18 B/P (MAP) 142/90 (107) 163/95 (117) 145/76 (99) Pulse Ox 99 100 98 O2 Delivery Room Air Room Air Room Air Room Air 01/06/17 01/06/17 01/06/17 01/06/17 03:08 07:00 08:00 10:45 Temp 97.9 97.9 97.9 97.9 97.9 97.9 Pulse 73 73 72 Resp 18 18 18 B/P (MAP) 142/89 (106) 151/83 (105) 45/79 (68) Pulse Ox 99 99 99 O2 Delivery Room Air Room Air Room Air Room Air Intake and Output 01/05/17 01/05/17 01/06/17 15:00 23:00 07:00 Intake Total 750 ml 700 ml Output Total 200 ml Balance 750 ml 500 ml SANAM TAPIA MD Jan 06, 2017 14:24
[2017-01-06 14:57] VITALS: BP 142/88
[2017-01-07] MEDS ORDERED: risperiDONE MICROSPHERES 37.5 MG/2 ML DISP.SYRIN. IM SCH (21:00)
== END 2017-01-06 15:30 | DRG 682 ==
LOC: ER 13:28 → ED HOLD 15:21 → 6 SOUTH 17:40
PROVIDERS: ADMIT Internal Medicine; ATTEND Internal Medicine
DX: N17.0 Acute kidney failure with tubular necrosis (principal); E43 Unspecified severe protein-calorie malnutrition; G93.40 Encephalopathy, unspecified; Z68.41 Body mass index [BMI] 40.0-44.9, adult; G25.9 Extrapyramidal and movement disorder, unspecified; R55 Syncope and collapse; I95.9 Hypotension, unspecified; E66.9 Obesity, unspecified; E83.42 Hypomagnesemia; E78.5 Hyperlipidemia, unspecified; E78.00 Pure hypercholesterolemia, unspecified; H50.10 Unspecified exotropia; F79 Unspecified intellectual disabilities; F32.9 Major depressive disorder, single episode, unspecified; G40.909 Epilepsy, unspecified, not intractable, without status epilepticus; F41.9 Anxiety disorder, unspecified; F20.9 Schizophrenia, unspecified; K21.9 Gastro-esophageal reflux disease without esophagitis; E03.9 Hypothyroidism, unspecified; D50.9 Iron deficiency anemia, unspecified; I12.9 Hypertensive chronic kidney disease with stage 1 through stage 4 chronic kidney disease, or unspecified chronic kidney disease; N18.9 Chronic kidney disease, unspecified; Z79.82 Long term (current) use of aspirin; Z79.899 Other long term (current) drug therapy; Z79.1 Long term (current) use of non-steroidal anti-inflammatories (NSAID); Z79.2 Long term (current) use of antibiotics; Z88.8 Allergy status to other drugs, medicaments and biological substances
CPT/HCPCS: 36415; 70450; 71010; 80048; 80053; 80061; 80164; 81001; 82553; 83540; 83550; 83735; 84443; 84484; 85007; 85027; 87086; 87641; 93005; 93306; 96361; 96365; J1650; J3475; J3490; J7030; J7060; 97530; 97535; 99285-25

== ENCOUNTER 2019-11-08 11:34 | Observation (INO) | payer MEDICAID ==
[~2019-11-08] VITALS: Ht 162.6 cm; Wt 102.6 kg
[~2019-11-08 11:34] MED LIST: ACET325T9 PO; ASPI-630 PO; CLON2TAB9 PO; CLONAZEPAM1 MG PO; FAMO-63 PO; GUAI-519 PO; LEVO75TA5 PO; LOPE2TAB56 PO; MAG355OR11 PO; MAGN400O7 PO; MULT-445 PO; RISP37.5 IM; RISP4TAB35 PO; SIME125C65 PO; TOPI100T42 PO; VALP250S4 PO
--- NOTE | 2019-11-08 12:24 | EKG ---
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
[2019-11-08 12:52] LABS: ANION GAP 11 (6-14); BLOOD UREA NITROGEN 20 mg/dL (7-20); BUN/CREATININE RATIO 10 (6-20); CALCIUM 8.4 mg/dL (8.5-10.1); CARBON DIOXIDE 22 mmol/L (21-32); CHLORIDE 111 mmol/L (98-107); GFR 30.9; GLUCOSE 96 mg/dL (70-99); POTASSIUM 4.7 mmol/L (3.5-5.1); SODIUM 144 mmol/L (136-145)
[2019-11-08 12:57] LABS: ALBUMIN 2.4 g/dL (3.4-5.0); ALBUMIN/GLOBULIN RATIO 0.6 (1.0-1.7); ALK PHOS 61 U/L (46-116); ALT (SGPT) 14 U/L (14-59); AST (SGOT) 18 U/L (15-37); MAGNESIUM 1.8 mg/dL (1.8-2.4); TOTAL PROTEIN 6.4 g/dL (6.4-8.2)
--- NOTE | 2019-11-08 12:57 | PHYS DOC ---
Past Medical History Past Medical History: Anxiety, Cancer, Constipation, Depression, High Cholesterol, Hypertension, Hypothyroid, Seizure, Schizophrenia, UTI, Other Additional Past Medical Histor: MULTIPLE PERSONALITY DISORDER, INTELLECTUAL DI SABILITIES (GORDON NUNEZ APRN) Past Surgical History: Other Additional Past Surgical Histo: UNKNOWN SURGERY (GORDON NUNEZ APRN) Smoking Status: Unknown if ever smoked Alcohol Use: None Drug Use: None (GORDON NUNEZ APRN) General Adult EDM: Chief Complaint: SYNCOPE HPI: HPI: Patient is a 59 year old AA female who presents to the ER via EMS with reports of a syncopal episode at the snf facility where she resides. PT states she is not sure why she fell. She reports that she falls frequently but does not know the cause of her falls, she thinks she just loses her balance.. She denies any fever, dizziness, headache, cough, chest pain, shortness of breath, abdominal pain, dysuria, neck pain, or back pain. She currently denies any complaints. (GORDON NUNEZ APRN) Review of Systems: Review of Systems: Constitutional: Denies fever or chills. [] Eyes: Denies change in visual acuity. [] HENT: Denies nasal congestion or sore throat. [] Respiratory: Denies cough or shortness of breath. [] Cardiovascular: Denies chest pain or edema. [] GI: Denies abdominal pain, nausea, vomiting, or diarrhea. [] : Denies dysuria. [] Musculoskeletal: Denies back pain or joint pain. [] Integument: Denies rash. [] Neurologic: Denies headache, focal weakness or sensory changes. [] Lymphatic: Denies swollen glands. [] Psychiatric: Denies depression or anxiety. [] (GORDON NUNEZ APRN) Heart Score: Risk Factors: Risk Factors: DM, Current or recent (<one month) smoker, HTN, HLP, family history of CAD, obesity. Risk Scores: Score 0 - 3: 2.5% MACE over next 6 weeks - Discharge Home Score 4 - 6: 20.3% MACE over next 6 weeks - Admit for Clinical Observation Score 7 - 10: 72.7% MACE over next 6 weeks - Early Invasive Strategies (GORDON NUNEZ APRN) Allergies: Allergies: Allergies Coded Allergies Type Severity Reaction Last Updated Verified haloperidol Allergy Intermediate UNKNOWN 11/09/15 Yes iron dextran complex Allergy Intermediate UNKNOWN 11/09/15 Yes (GORDON NUNEZ APRN) Physical Exam: PE: Constitutional: Well developed, well nourished, no acute distress, non-toxic appearance, obese. [] HENT: Normocephalic, atraumatic, bilateral external ears normal, nose normal. [] Eyes: PERRLA, EOMI, conjunctiva normal, no discharge. [] Neck: Normal range of motion, no stridor. [] Cardiovascular:Heart rate regular rhythm Lungs & Thorax: Respirations even and unlabored, no retractions, no respiratory distress Abdomen: soft, no tenderness Skin: Warm, dry, no erythema, no rash. [] Extremities: No cyanosis, ROM intact, no edema. [] Neurologic: Alert and oriented X 3, no focal deficits noted. [] Psychologic: Affect normal, judgement normal, mood normal. [] (GORDON NUNEZ APRN) Current Patient Data: Labs: Laboratory Tests Test 11/08/19 12:30 Sodium Level 144 mmol/L (136-145) Potassium Level 4.7 mmol/L (3.5-5.1) Chloride Level 111 mmol/L (98-107) H Carbon Dioxide Level 22 mmol/L (21-32) Anion Gap 11 (6-14) Blood Urea Nitrogen 20 mg/dL (7-20) Creatinine 2.0 mg/dL (0.6-1.0) H Estimated GFR (Cockcroft-Gault) 30.9 BUN/Creatinine Ratio 10 (6-20) Glucose Level 96 mg/dL (70-99) Calcium Level 8.4 mg/dL (8.5-10.1) L Magnesium Level Pending Total Bilirubin Pending Aspartate Amino Transferase (AST) Pending Alanine Aminotransferase (ALT) Pending Alkaline Phosphatase Pending Total Protein Pending Albumin Pending Albumin/Globulin Ratio Pending Laboratory Tests 11/08/19 12:30 Vital Signs: Vital Signs Date Time Temp Pulse Resp B/P (MAP) Pulse Ox O2 Delivery O2 Flow Rate FiO2 11/08/19 11:53 97.4 62 20 160/72 (101) 99 Room Air 97.4 (GORDON NUNEZ APRN) EKG: EK- Sinus tachycardia rate 103, no STEMI read by Dr. Ko. [] (GORDON NUNEZ APRN) Radiology/Procedures: Radiology/Procedures: PROCEDURE: CHEST AP ONLY CHEST AP ONLY History: Syncopal episode Comparison: January 03, 2017 Findings: Single view of the chest is submitted. There is no infiltrate, pneumothorax, or effusion. The pericardial cardiac silhouette is within normal limits in size. There is some atherosclerotic calcification near the aortic arch. Appearance of an edge of the right hemithorax is believed to be artifactual as there are peripheral lung markings present. Impression: 1. There is no convincing radiographic evidence of acute cardiopulmonary disease.[] PROCEDURE: CT HEAD AND CERVICAL SPINE WO CT head and cervical spine without contrast History: Syncopal episode, fall Technique: Noncontrast CT imaging was performed of the head and cervical spine. Multiplanar reconstruction images are submitted. Exposure: One or more of the following individualized dose reduction techniques were utilized for this examination: 1. Automated exposure control 2. Adjustment of the mA and/or kV according to patient size 3. Use of iterative reconstruction technique. Head CT Comparison: November 09, 2015 Findings: No acute extra-axial or parenchymal hemorrhage is identified. There is no significant intra-axial mass effect, midline shift, or extra-axial fluid collection. The sanford-white differentiation of the major vascular territories is preserved. Ventricular size is stable, within normal limits. The mastoid air cells and the visualized paranasal sinuses are aerated. There is no significant focal calvarial abnormality. Impression: 1. No acute intracranial abnormality is identified. Cervical spine CT Comparison: November 09, 2015 Findings: There is some motion degradation. No acute cervical spine fracture is identified. Vertebral body stature and AP alignment are within normal limits. Atlanto-axial distance is within normal limits. There is appropriate alignment of lateral masses of C1 relative to C2. Occipital condylar-C1 relationship is maintained. There is mild to moderate degenerative disc disease C5-6. There is mild spondylosis C4-5 and C5-6. There is probable borderline narrowing of the spinal canal at C5-6 on the order of 10 mm with likely degree of at least mild left lateral recess stenosis. There is probable mild narrowing of the central canal about 9 to 10 mm at C4-C5. There is multilevel cervical facet degenerative change. There is degenerative change of the temporomandibular joints bilaterally. Impression: 1. No acute cervical spine fracture is identified. 2. There is degenerative disc disease and spondylosis greatest C5-6. (GORDON NUNEZ APRN) Course & Med Decision Making: Course & Med Decision Making Pertinent Labs and Imaging studies reviewed. (See chart for details) 1430-spoke with Dr. Vicente who is the admitting physician, and care was assumed following discussion of patient. Will admit patient as observation status to telemetry for syncopal episode and acute kidney injury. Patient's vital signs stable. Patient remains afebrile, appears nontoxic, respirations even and unlabored. Patient will be admitted to the telemetry floor. Patient's case and plan of care also discussed with Dr. Ko [] (GORDON NUNEZ APRN) Dragon Disclaimer: Dragon Disclaimer: This electronic medical record was generated, in whole or in part, using a voice recognition dictation system. (GORDON NUNEZ APRN) Departure Departure Impression: Primary Impression: Syncope Additional Impression: AURA (acute kidney injury) Disposition: ADMITTED INPATIENT Admitting Physician: ENE Ho) (GORDON NUNEZ APRN) Condition: STABLE Referrals: SAGAR CHURCH (PCP) Justicifation of Admission Dx: Justifications for Admission: Justification of Admission Dx: Yes Comments: Syncopal episode, AURA (GORDON NUNEZ APRN) Attending Signature Attending Signature I have reviewed the PA/UPSETTER HELPER's note and plan of care. I was available for consultation as needed during the patient's visit in the emergency department. I agree with the clinical impression, plan, and disposition. (MUNA KO DO) GORDON NUNEZ APRN Nov 08, 2019 12:57 MUNA KO DO Nov 08, 2019 15:39
[2019-11-08 13:01] LABS: TOTAL BILIRUBIN < 0.1 mg/dL (0.2-1.0)
--- NOTE | 2019-11-08 13:13 | RAD ---
CT head and cervical spine without contrast History: Syncopal episode, fall Technique: Noncontrast CT imaging was performed of the head and cervical spine. Multiplanar reconstruction images are submitted. Exposure: One or more of the following individualized dose reduction techniques were utilized for this examination: 1. Automated exposure control 2. Adjustment of the mA and/or kV according to patient size 3. Use of iterative reconstruction technique. Head CT Comparison: November 09, 2015 Findings: No acute extra-axial or parenchymal hemorrhage is identified. There is no significant intra-axial mass effect, midline shift, or extra-axial fluid collection. The sanford-white differentiation of the major vascular territories is preserved. Ventricular size is stable, within normal limits. The mastoid air cells and the visualized paranasal sinuses are aerated. There is no significant focal calvarial abnormality. Impression: 1. No acute intracranial abnormality is identified. Cervical spine CT Comparison: November 09, 2015 Findings: There is some motion degradation. No acute cervical spine fracture is identified. Vertebral body stature and AP alignment are within normal limits. Atlanto-axial distance is within normal limits. There is appropriate alignment of lateral masses of C1 relative to C2. Occipital condylar-C1 relationship is maintained. There is mild to moderate degenerative disc disease C5-6. There is mild spondylosis C4-5 and C5-6. There is probable borderline narrowing of the spinal canal at C5-6 on the order of 10 mm with likely degree of at least mild left lateral recess stenosis. There is probable mild narrowing of the central canal about 9 to 10 mm at C4-C5. There is multilevel cervical facet degenerative change. There is degenerative change of the temporomandibular joints bilaterally. Impression: 1. No acute cervical spine fracture is identified. 2. There is degenerative disc disease and spondylosis greatest C5-6. Electronically signed by: Jayro Rosa MD (11/08/2019 1:10 PM) [id number]
--- NOTE | 2019-11-08 13:15 | RAD ---
CHEST AP ONLY History: Syncopal episode Comparison: January 03, 2017 Findings: Single view of the chest is submitted. There is no infiltrate, pneumothorax, or effusion. The pericardial cardiac silhouette is within normal limits in size. There is some atherosclerotic calcification near the aortic arch. Appearance of an edge of the right hemithorax is believed to be artifactual as there are peripheral lung markings present. Impression: 1. There is no convincing radiographic evidence of acute cardiopulmonary disease. Electronically signed by: Jayro Rosa MD (11/08/2019 1:12 PM) [id number]
[2019-11-08 13:56] LABS: BASO % 0 % (0-3); EOS % 0 % (0-3); HEMATOCRIT 35.5 % (36.0-47.0); HEMOGLOBIN 11.1 g/dL (12.0-15.5); LYMPH # 0.7 x10^3/uL (1.0-4.8); LYMPH % 13 % (24-48); MEAN CORPUSCULAR HEMOGLOBIN 25 pg (25-35); MEAN CORPUSCULAR HGB CONC 31 g/dL (31-37); MEAN CORPUSCULAR VOLUME 79 fL (79-100); MONO # 0.7 x10^3/uL (0.0-1.1); MONO % 14 % (0-9); NEUT # 3.8 x10^3/uL (1.8-7.7); NEUT % 73 % (31-73); PLATELET COUNT 135 x10^3/uL (140-400); RED CELL DISTRIBUTION WIDTH 17.3 % (11.5-14.5); WHITE BLOOD COUNT 5.2 x10^3/uL (4.0-11.0)
[2019-11-08 14:05] LABS: PROTHROMBIN TIME PATIENT 14.8 SEC (11.7-14.0)
[2019-11-08] MEDS ORDERED: IV NORMAL SALINE 1000ML BAG 1,000 ML IV ONE (14:30)
[2019-11-08 17:34] VITALS: BP 125/79
[2019-11-08 19:51] VITALS: BP 166/92
--- NOTE | 2019-11-08 20:28 | HP ---
ADMIT DATE: 11/08/2019 CHIEF COMPLAINT: Syncope. HISTORY OF PRESENT ILLNESS: The patient is a pleasant 59-year-old female who is cognitively impaired, although very pleasant. I think she lives at a facility. She had a syncopal episode. She apparently fell and this was witnessed. I discussed the case with ER physician. I discussed the case with ER physician. We have also discovered that she does have an acute kidney injury with a creatinine of 2. We are going to admit the patient, give her some fluids and do some physical therapy, occupational therapy and consult Neurology. PAST MEDICAL HISTORY: Cognitive impairment, multiple personality disorder, hypertension, hyperlipidemia, depression, constipation, hypothyroidism, seizure, schizophrenia, UTI. ALLERGIES: HALDOL AND IRON DEXTRAN. FAMILY HISTORY: Diabetes. SOCIAL HISTORY: She lives at a facility, does not drink, smoke or take drugs. MEDICATIONS: Reviewed, please refer to the MRAD. REVIEW OF SYSTEMS: Unable to obtain. The patient is too confused, but pleasant. PHYSICAL EXAMINATION: VITALS: Within normal limits and are stable. GENERAL: She is somewhat overweight. HEENT: Right eye is deviated to the right, which I think is chronic for her. EYES: Extraocular muscles are intact, pupils are equally round and reactive to light and accommodation MUSCULOSKELETAL: Well developed, well nourished, good range of motion ENDOCRINE: No thyromegaly was palpated LYMPHATICS: No cervical chain or axillary nodes were noted HEMATOPOIETIC: No bruising NECK: Supple, no JVD, no thyromegaly was noted. LUNGS: Clear to auscultation in all lung royal without rhonchi or wheezing. HEART: RRR, S1, S2 present. Peripheral pulses intact, no obvious murmurs were noted. ABDOMEN: Soft, nontender. Positive bowel sounds no organomegaly, normal bowel sounds. EXTREMITIES: Without any cyanosis, clubbing, or edema. Pedal pulses intact, Homans sign is negative. NEUROLOGIC: She is pleasantly confused. PSYCHIATRIC: She is a little anxious, but pleasant. SKIN: No ulcerations or rashes, good skin turgor, no jaundice. VASCULAR: Good capillary refill, neurovascular bundle appears to be intact. LABORATORY DATA: Creatinine is 2. Hemoglobin is 11. ASSESSMENT AND PLAN: Syncope, fall, acute kidney injury and anemia. The patient will be admitted. We will consult Neurology regarding the syncopal episode and falls. PT, OT, home meds, DVT prophylaxis. Full code. Consult Nephrology. BERTHA CRAIG DO DR: MILLIE/sacha JOB#: [id number] / [id number]
[2019-11-08 23:46] VITALS: BP 156/73
[2019-11-09] VITALS (7 sets, daily range): BP systolic 130–185; BP diastolic 67–109
[2019-11-09] MEDS ORDERED: MAG-115 PO (02:48)
[2019-11-09] MEDS ORDERED: DIVA500T4 PO (03:00)
[2019-11-09] MEDS ORDERED: NYST15PO9 TP (03:00)
[2019-11-09] MEDS ORDERED: SERT25TA PO (03:00)
[2019-11-09] MEDS ORDERED: POLY17PO29 PO ×2 (03:00)
[2019-11-09] MEDS ORDERED: ACETAMINOPHEN 325 MG TABLET. PO SCH (04:15)
[2019-11-09] MEDS: ACETAMINOPHEN 325 MG TABLET. PO PRN ×2 (04:39→20:54)
[2019-11-09] MEDS ORDERED: MAGNESIUM HYDROXIDE 2,400 MG/30 ML ORAL.SUSP. PO PRN (09:15)
[2019-11-09] MEDS ORDERED: MAG HYDROX/ALUMINUM HYD/SIMETH 30 ML ORAL.SUSP PO PRN (09:15)
[2019-11-09] MEDS ORDERED: POLYETHYLENE GLYCOL 3350 17 GM PACKET. PO PRN (09:15)
--- NOTE | 2019-11-09 09:51 | PDOC2 ---
NEUROLOGY CONSULT Date of Admission Date of Admission DATE: 11/09/19 TIME: 09:41 Reason for Consult Reason for Consult: Syncope Source Source: Caregiver, Chart review, Patient History of Present Illness History of Present Illness The patient is a 59-year-old right-handed female shelter resident with history of epilepsy, strabismus, intellectual disability, schizophrenia, depression, and anxiety, who fainted yesterday. She had some abdominal pain, lightheadedness, diaphoresis, but no seizure activity, tongue biting, incontinence, or prolonged post at the state. I saw her for syncope 3 years ago here. She has had seizures in the past, but she really is describing her extrapyramidal syndrome of shaking and not necessarily any change in co nsciousness. She's complaining of back pain and trouble moving her legs. Past Medical History Cardiovascular: HTN, Hyperlipidemia CENTRAL NERVOUS SYSTEM: Other (extrapyramidal syndrome, intellectual d isability, strabismus) GI: Constipation, GERD Psych: Anxiety, Depression, Schizophrenia ENT: Allergic Rhinitis Renal/: UTI Endocrine: Hypothyroidism Past Surgical History Past Surgical History: No pertinent history Family History Family History: No pertinent hx Social History Social History Single, shelter resident, no alcohol or tobacco Current Medications Current Medications Current Medications Sodium Chloride 1,000 ml @ 1,000 mls/hr 1X ONCE IV Last administered on 11/08/19at 17:00; Start 11/08/19 at 14:30; Stop 11/08/19 at 15:29; Status DC Acetaminophen (Tylenol) 650 mg PRN Q6HRS PO ; Start 11/09/19 at 04:15; Stop 11/09/19 at 04:39; Status DC Acetaminophen (Tylenol) 650 mg PRN Q6HRS PRN PO HEADACHE / TEMP > 100.3'F Last administered on 11/09/19at 04:39; Start 11/09/19 at 04:45 Aspirin (Aspirin Chewable) 81 mg DAILY PO ; Start 11/10/19 at 09:00 Divalproex Sodium (Depakote Er) 1,500 mg QHS PO ; Start 11/09/19 at 21:00 Levothyroxine Sodium (Synthroid) 75 mcg DAILY07 PO ; Start 11/10/19 at 07:00 Al Hydroxide/Mg Hydroxide (Mylanta Plus Xs) 30 ml PRN Q4HRS PRN PO HEARTBURN / GAS; Start 11/09/19 at 09:15 Magnesium Hydroxide (Milk Of Magnesia) 2,400 mg PRN DAILY PRN PO CONSTIPATION- 2ND CHOICE; Start 11/09/19 at 09:15 Polyethylene Glycol (miraLAX PACKET) 17 gm PRN DAILY PRN PO CONSTIPATION- 1ST CHOICE; Start 11/09/19 at 09:15 Topiramate (Topamax) 100 mg BID PO ; Start 11/09/19 at 21:00 Risperidone (RisperDAL) 4 mg BID PO ; Start 11/09/19 at 21:00 Active Scripts Active Reported Zoloft (Sertraline Hcl) 25 Mg Tablet 1 Tab PO DAILY Nystatin 15 Gm Powder 1 Carmen TP PRN PRN 7 Days apply to affected area(s) Miralax (Polyethylene Glycol 3350) 17 Gm Powd.pack 1 Packet PO PRN Q24HRS PRN 2 Days dissolve in water Miralax (Polyethylene Glycol 3350) 17 Gm Powd.pack 1 Packet PO QMWF 2 Days dissolve in water Depakote Er (Divalproex Sodium) 500 Mg Tab.er.24h 3 Tab PO QHS Mylanta Maximum Strength Liq (Mag Hydrox/Aluminum Hyd/Simeth) 355 Ml Oral.susp 30 Ml PO PRN Q4HRS PRN Risperdal Consta (Risperidone Microspheres) 37.5 Mg/2 Ml Disp.syrin 50 Mg IM Q2WKS Topamax (Topiramate) 100 Mg Tablet 1 Tab PO BID Risperdal (Risperidone) 4 Mg Tablet 1 Tab PO BID Milk Of Magnesia (Magnesium Hydroxide) 400 Mg/5 Ml Oral.susp 30 Ml PO DAILY PRN Anti-Diarrhea (Loperamide Hcl) 2 Mg Tablet 2 Mg PO PRN Levothyroxine Sodium 75 Mcg Tablet 1 Tab PO DAILY Aspirin 81 Mg Tab.chew 1 Tab PO DAILY Tylenol (Acetaminophen) 325 Mg Tablet 2 Tab PO PRN Q6HRS Allergies Allergies: Coded Allergies: haloperidol (Verified Allergy, Intermediate, UNKNOWN, 11/09/15) iron dextran complex (Verified Allergy, Intermediate, UNKNOWN, 11/09/15) ROS Review of System Negative for fever, chills, weight loss, shortness of breath, chest pain, indigestion, hematochezia, melena, and dysuria. Full 14-point review of systems is negative. Physical Exam Physical Examination General: Well-developed, well-nourished black female in no acute distress HEENT: Normocephalic andatraumatic. Temporal arteriespulsatile and nontender. Neck: Supple without bruit, no meningismus Musculoskeletal: Stability:see neurologic. Gait exam:see neurologic. Tone:see neurologic.Strength:see neurologic. Back: No particular point tenderness or deformity Neurological: Mental Status:intact, orientation, memory, attention span/concentration, language, fund of knowledge: She knows the date and location, name of president. Cranial Nerves:Pupils equal and reactive to light, visual royal are full to confrontation. She has bilateral strabismus. Facial sensation is normal. There is no facial asymmetry. Vestibulo-ocular reflex is intact. Palate elevates and tongue protrudes in midline. All other cranial related problems are negative except as mentioned before.Reflexes:2+ and symmetric with flexor plantar responses. Motor:5/5 in the arms, she is splinting the legs due to pain. Coordination:Finger-nose finger normal. Rapid alternating movements and fine finger movements are intact. Course resting tremor. Gait:not tested. Sensory:Normal pinprick, vibration, light touch, proprioception. Vitals VITALS Vital Signs Date Time Temp Pulse Resp B/P (MAP) Pulse Ox O2 Delivery O2 Flow Rate FiO2 11/09/19 09:34 84 185/78 (113) 11/09/19 07:30 97.8 18 99 Room Air 97.8 Labs Labs Laboratory Tests Test 11/08/19 12:30 11/08/19 13:40 Sodium Level 144 mmol/L (136-145) Potassium Level 4.7 mmol/L (3.5-5.1) Chloride Level 111 mmol/L (98-107) Carbon Dioxide Level 22 mmol/L (21-32) Anion Gap 11 (6-14) Blood Urea Nitrogen 20 mg/dL (7-20) Creatinine 2.0 mg/dL (0.6-1.0) Estimated GFR (Cockcroft-Gault) 30.9 BUN/Creatinine Ratio 10 (6-20) Glucose Level 96 mg/dL (70-99) Calcium Level 8.4 mg/dL (8.5-10.1) Magnesium Level 1.8 mg/dL (1.8-2.4) Total Bilirubin < 0.1 mg/dL (0.2-1.0) Aspartate Amino Transf (AST/SGOT) 18 U/L (15-37) Alanine Aminotransferase (ALT/SGPT) 14 U/L (14-59) Alkaline Phosphatase 61 U/L (46-116) Troponin I Quantitative 0.018 ng/mL (0.000-0.055) Total Protein 6.4 g/dL (6.4-8.2) Albumin 2.4 g/dL (3.4-5.0) Albumin/Globulin Ratio 0.6 (1.0-1.7) White Blood Count 5.2 x10^3/uL (4.0-11.0) Red Blood Count 4.50 x10^6/uL (3.50-5.40) Hemoglobin 11.1 g/dL (12.0-15.5) Hematocrit 35.5 % (36.0-47.0) Mean Corpuscular Volume 79 fL (79-100) Mean Corpuscular Hemoglobin 25 pg (25-35) Mean Corpuscular Hemoglobin Concent 31 g/dL (31-37) Red Cell Distribution Width 17.3 % (11.5-14.5) Platelet Count 135 x10^3/uL (140-400) Neutrophils (%) (Auto) 73 % (31-73) Lymphocytes (%) (Auto) 13 % (24-48) Monocytes (%) (Auto) 14 % (0-9) Eosinophils (%) (Auto) 0 % (0-3) Basophils (%) (Auto) 0 % (0-3) Neutrophils # (Auto) 3.8 x10^3/uL (1.8-7.7) Lymphocytes # (Auto) 0.7 x10^3/uL (1.0-4.8) Monocytes # (Auto) 0.7 x10^3/uL (0.0-1.1) Eosinophils # (Auto) 0.0 x10^3/uL (0.0-0.7) Basophils # (Auto) 0.0 x10^3/uL (0.0-0.2) Prothrombin Time 14.8 SEC (11.7-14.0) Prothromb Time International Ratio 1.2 (0.8-1.1) Activated Partial Thromboplast Time 27 SEC (24-38) Laboratory Tests Test 11/08/19 12:30 11/08/19 13:40 Sodium Level 144 mmol/L (136-145) Potassium Level 4.7 mmol/L (3.5-5.1) Chloride Level 111 mmol/L (98-107) Carbon Dioxide Level 22 mmol/L (21-32) Anion Gap 11 (6-14) Blood Urea Nitrogen 20 mg/dL (7-20) Creatinine 2.0 mg/dL (0.6-1.0) Estimated GFR (Cockcroft-Gault) 30.9 BUN/Creatinine Ratio 10 (6-20) Glucose Level 96 mg/dL (70-99) Calcium Level 8.4 mg/dL (8.5-10.1) Magnesium Level 1.8 mg/dL (1.8-2.4) Total Bilirubin < 0.1 mg/dL (0.2-1.0) Aspartate Amino Transf (AST/SGOT) 18 U/L (15-37) Alanine Aminotransferase (ALT/SGPT) 14 U/L (14-59) Alkaline Phosphatase 61 U/L (46-116) Troponin I Quantitative 0.018 ng/mL (0.000-0.055) Total Protein 6.4 g/dL (6.4-8.2) Albumin 2.4 g/dL (3.4-5.0) Albumin/Globulin Ratio 0.6 (1.0-1.7) White Blood Count 5.2 x10^3/uL (4.0-11.0) Red Blood Count 4.50 x10^6/uL (3.50-5.40) Hemoglobin 11.1 g/dL (12.0-15.5) Hematocrit 35.5 % (36.0-47.0) Mean Corpuscular Volume 79 fL (79-100) Mean Corpuscular Hemoglobin 25 pg (25-35) Mean Corpuscular Hemoglobin Concent 31 g/dL (31-37) Red Cell Distribution Width 17.3 % (11.5-14.5) Platelet Count 135 x10^3/uL (140-400) Neutrophils (%) (Auto) 73 % (31-73) Lymphocytes (%) (Auto) 13 % (24-48) Monocytes (%) (Auto) 14 % (0-9) Eosinophils (%) (Auto) 0 % (0-3) Basophils (%) (Auto) 0 % (0-3) Neutrophils # (Auto) 3.8 x10^3/uL (1.8-7.7) Lymphocytes # (Auto) 0.7 x10^3/uL (1.0-4.8) Monocytes # (Auto) 0.7 x10^3/uL (0.0-1.1) Eosinophils # (Auto) 0.0 x10^3/uL (0.0-0.7) Basophils # (Auto) 0.0 x10^3/uL (0.0-0.2) Prothrombin Time 14.8 SEC (11.7-14.0) Prothromb Time International Ratio 1.2 (0.8-1.1) Activated Partial Thromboplast Time 27 SEC (24-38) Images Images CT head and cervical spine without contrast History: Syncopal episode, fall Technique: Noncontrast CT imaging was performed of the head and cervical spine. Multiplanar reconstruction images are submitted. Exposure: One or more of the following individualized dose reduction techniques were utilized for this examination: 1. Automated exposure control 2. Adjustment of the mA and/or kV according to patient size 3. Use of iterative reconstruction technique. Head CT Comparison: November 09, 2015 Findings: No acute extra-axial or parenchymal hemorrhage is identified. There is no significant intra-axial mass effect, midline shift, or extra-axial fluid collection. The sanford-white differentiation of the major vascular territories is preserved. Ventricular size is stable, within normal limits. The mastoid air cells and the visualized paranasal sinuses are aerated. There is no significant focal calvarial abnormality. Impression: 1. No acute intracranial abnormality is identified. Cervical spine CT Comparison: November 09, 2015 Findings: There is some motion degradation. No acute cervical spine fracture is identified. Vertebral body stature and AP alignment are within normal limits. Atlanto-axial distance is within normal limits. There is appropriate alignment of lateral masses of C1 relative to C2. Occipital condylar-C1 relationship is maintained. There is mild to moderate degenerative disc disease C5-6. There is mild spondylosis C4-5 and C5-6. There is probable borderline narrowing of the spinal canal at C5-6 on the order of 10 mm with likely degree of at least mild left lateral recess stenosis. There is probable mild narrowing of the central canal about 9 to 10 mm at C4-C5. There is multilevel cervical facet degenerative change. There is degenerative change of the temporomandibular joints bilaterally. Impression: 1. No acute cervical spine fracture is identified. 2. There is degenerative disc disease and spondylosis greatest C5-6. Assessment/Plan Assessment/Plan Impression: Vasovagal syncope History of epilepsy, on anticonvulsants, I suspect they are more for her ps ychiatric issues History of multiple psychiatric illnesses as listed above. Extrapyramidal syndrome Strabismus Back pain, leg weakness due to pain, also possible psychiatric component Recommendations: No additional neurological studies such as EEG needed. Check lumbar spine x-ray Mobilize with physical therapy Consider lumbar MRI if symptoms persist, but there are no red flags on exam that necessitate this study immediately. In particular, I'm struck by her totally normal sensory exam. Continue current anticonvulsants. Thank you for letting me help with the patient's care. SANAM TAPIA MD Nov 09, 2019 09:51
--- NOTE | 2019-11-09 10:48 | SNU/HH DC ---
DISCHARGE WITH HOME HEALTH DISCHARGE INFORMATION: Final Diagnosis: Problems Medical Problems: (1) AURA (acute kidney injury) Status: Acute Condition on Discharge: Stable CODE STATUS: Code Status: Full HOME HEALTH: Face to Face: I certify this patient is under my care and that I, or a nurse practitioner or physician's executive sales assistant working with me, had a face to face encounter that meets the physician face to face encounter requirements with this patient on []. Medical Complications: Other (Recent syncope and falls) [facility] For: Assess & Educate Safety RN For Eval/Treatment: Yes Physical Therapy For: Evalulation/Treatment Occupational Therapy For: Evaluation/Treatment Speech Language Pathology For: Evaluation/Treatment Home Health Aide For: Self-care TELEVISION TUBE INSPECTOR For: Community Resources Pt Meets Homebound Status: Poor coordination w/ amb. POST DISCHARGE ORDERS: Activity Instructions for Disc: Activity as tolerated DIET AFTER DISCHARGE: Cardiac CERTIFICATION STATEMENT: Certification Statement: Certification Statement: Based on the above finding, I certify that this patient is confined to the home and needs intermittent nursing home care, physical therapy and/or speech therapy, or continues to need occupational therapy.~ This patient is under my care, and I have initiated the establishment of the plan of care.~ This patient will be followed by myself or a community physician who will periodically review the plan of care. Home Meds Reported Medications Sertraline Hcl (ZOLOFT) 25 Mg Tablet, 1 TAB PO DAILY for major depressive disorder, #30 TAB 2 Refills 11/09/19 Nystatin (NYSTATIN) 15 Gm Powder, 1 REHAN TP PRN PRN for candidiasis for 7 Days, #1 BOTTLE 0 Refills apply to affected area(s) 11/09/19 Polyethylene Glycol 3350 (MIRALAX) 17 Gm Powd.pack, 1 PACKET PO PRN Q24HRS PRN for CONSTIPATION for 2 Days, PACKET 0 Refills dissolve in water 11/09/19 Polyethylene Glycol 3350 (MIRALAX) 17 Gm Powd.pack, 1 PACKET PO QMWF for constipation for 2 Days, #2 PACKET 0 Refills dissolve in water 11/09/19 Divalproex Sodium (DEPAKOTE ER) 500 Mg Tab.er.24h, 3 TAB PO QHS for schizoaffective disorder, #90 TAB 2 Refills 11/09/19 Mag Hydrox/Aluminum Hyd/Simeth (Mylanta Maximum Strength Liq) 355 Ml Oral.susp, 30 ML PO PRN Q4HRS PRN for HEARTBURN / GAS, MISC 11/09/19 Risperidone Microspheres (RISPERDAL CONSTA) 37.5 Mg/2 Ml Disp.syrin, 50 MG IM Q2WKS for schizoaffective disorder, SYR 01/03/17 Topiramate (TOPAMAX) 100 Mg Tablet, 1 TAB PO BID, #60 TAB 1 Refill 01/03/17 Risperidone (RISPERDAL) 4 Mg Tablet, 1 TAB PO BID, #30 TAB 01/03/17 Magnesium Hydroxide (MILK OF MAGNESIA) 400 Mg/5 Ml Oral.susp, 30 ML PO DAILY PRN for CONSTIPATION, MISC 01/03/17 Loperamide Hcl (ANTI-DIARRHEA) 2 Mg Tablet, 2 MG PO PRN for DIARRHEA, TAB 01/03/17 Levothyroxine Sodium (LEVOTHYROXINE SODIUM) 75 Mcg Tablet, 1 TAB PO DAILY, #30 TAB 5 Refills 01/03/17 Aspirin (ASPIRIN) 81 Mg Tab.chew, 1 TAB PO DAILY, #30 TAB 3 Refills 01/03/17 Acetaminophen (TYLENOL) 325 Mg Tablet, 2 TAB PO PRN Q6HRS, #30 TAB 01/03/17 Discontinued Reported Medications Famotidine (PEPCID) 20 Mg Tablet, 20 MG PO DAILY, TAB 01/03/17 Valproic Acid (As Sodium Salt) (Valproic Acid) 250 Mg/5 Ml Solution, 750 MG PO BID, MISC 01/03/17 Simethicone (Simethicone) 125 Mg Capsule, 125 MG PO, CAP 01/03/17 Multivitamin (MULTIVITAMINS) 1 Each Tablet, 1 TAB PO DAILY, #90 TAB 3 Refills 01/03/17 Guaifenesin (GUADALUPE-TUSSIN) 100 Mg/5 Ml Liquid, 200 MG PO Q4HRS PRN for COUGH, LIQUID 01/03/17 Clonazepam (CLONAZEPAM) 2 Mg Tablet, 1 TAB PO BID PRN for ANXIETY / AGITATION, #60 TAB 2 Refills 01/03/17 Clonazepam (CLONAZEPAM) 1 Mg Tablet, 1 TAB PO BID PRN for ANXIETY / AGITATION, #30 TAB 01/03/17 BERTHA CRAIG III DO Nov 09, 2019 10:47
--- NOTE | 2019-11-09 11:06 | PDOC2 ---
CONSULT Date of Consult Date of Consult DATE: 11/09/19 TIME: 11:00 Reason for Consult Reason for Consult: RENAL FAILURE Referring Physician Referring Physician: RAFA Identification/Chief Complaint Chief Complaint SYNCOPE Source Source: Chart review History of Present Illness Reason for Visit: THIS IS A 59 YR AAF WHO LIVES AT NURSING FACILITY DUE TO COGNITIVE IMPAIRMENTS. SHE WAS BROUGHT TO THE HOSPITAL DUE TO A SYNCOPAL EPISODE. SHE IS BEING EVALUATED BY NEUROLOGY. RENAL CONSULT DUE TO CR OF 2.0. OLD RECORDS INDICATE A CR OF 1.9 BACK IN 2017 C/W STAGE 3 CKD. NO NEPHROTOXINS NOTED. NO HX OF ANY KIDNEY OR BLADDER SURGERIES HEMATURIA DYSURIA OR FREQUENCY NOTED. NO OTHER HX. HEMODYNACMICALLY STABLE Past Medical History Cardiovascular: HTN, Hyperlipidemia Pulmonary: No pertinent hx CENTRAL NERVOUS SYSTEM: Other (extrapyramidal syndrome, intellectual disability, strabismus) GI: Constipation, GERD Heme/Onc: No pertinent hx Hepatobiliary: No pertinent hx Psych: Anxiety, Depression, Schizophrenia Rheumatologic: No pertinent hx Infectious disease: No pertinent hx ENT: Allergic Rhinitis Renal/: Chronic renal insuff, UTI Endocrine: Hypothyroidism Past Surgical History Past Surgical History: No pertinent history Family History Family History: Family History Unknown Social History ALCOHOL: none Drugs: None Lives: [facility] Current Problem List Problem List Problems Medical Problems: (1) AURA (acute kidney injury) Status: Acute Current Medications Current Medications Current Medications Sodium Chloride 1,000 ml @ 1,000 mls/hr 1X ONCE IV Last administered on 11/08/19at 17:00; Start 11/08/19 at 14:30; Stop 11/08/19 at 15:29; Status DC Acetaminophen (Tylenol) 650 mg PRN Q6HRS PO ; Start 11/09/19 at 04:15; Stop 11/09/19 at 04:39; Status DC Acetaminophen (Tylenol) 650 mg PRN Q6HRS PRN PO HEADACHE / TEMP > 100.3'F Last administered on 11/09/19at 04:39; Start 11/09/19 at 04:45 Aspirin (Aspirin Chewable) 81 mg DAILY PO ; Start 11/10/19 at 09:00 Divalproex Sodium (Depakote Er) 1,500 mg QHS PO ; Start 11/09/19 at 21:00 Levothyroxine Sodium (Synthroid) 75 mcg DAILY07 PO ; Start 11/10/19 at 07:00 Al Hydroxide/Mg Hydroxide (Mylanta Plus Xs) 30 ml PRN Q4HRS PRN PO HEARTBURN / GAS; Start 11/09/19 at 09:15 Magnesium Hydroxide (Milk Of Magnesia) 2,400 mg PRN DAILY PRN PO CONSTIPATION- 2ND CHOICE; Start 11/09/19 at 09:15 Polyethylene Glycol (miraLAX PACKET) 17 gm PRN DAILY PRN PO CONSTIPATION- 1ST CHOICE; Start 11/09/19 at 09:15 Topiramate (Topamax) 100 mg BID PO ; Start 11/09/19 at 21:00 Risperidone (RisperDAL) 4 mg BID PO ; Start 11/09/19 at 21:00 Active Scripts Active Reported Zoloft (Sertraline Hcl) 25 Mg Tablet 1 Tab PO DAILY Nystatin 15 Gm Powder 1 Carmen TP PRN PRN 7 Days apply to affected area(s) Miralax (Polyethylene Glycol 3350) 17 Gm Powd.pack 1 Packet PO PRN Q24HRS PRN 2 Days dissolve in water Miralax (Polyethylene Glycol 3350) 17 Gm Powd.pack 1 Packet PO QMWF 2 Days dissolve in water Depakote Er (Divalproex Sodium) 500 Mg Tab.er.24h 3 Tab PO QHS Mylanta Maximum Strength Liq (Mag Hydrox/Aluminum Hyd/Simeth) 355 Ml Oral.susp 30 Ml PO PRN Q4HRS PRN Risperdal Consta (Risperidone Microspheres) 37.5 Mg/2 Ml Disp.syrin 50 Mg IM Q2WKS Topamax (Topiramate) 100 Mg Tablet 1 Tab PO BID Risperdal (Risperidone) 4 Mg Tablet 1 Tab PO BID Milk Of Magnesia (Magnesium Hydroxide) 400 Mg/5 Ml Oral.susp 30 Ml PO DAILY PRN Anti-Diarrhea (Loperamide Hcl) 2 Mg Tablet 2 Mg PO PRN Levothyroxine Sodium 75 Mcg Tablet 1 Tab PO DAILY Aspirin 81 Mg Tab.chew 1 Tab PO DAILY Tylenol (Acetaminophen) 325 Mg Tablet 2 Tab PO PRN Q6HRS Allergies Allergies: Coded Allergies: haloperidol (Verified Allergy, Intermediate, UNKNOWN, 11/09/15) iron dextran complex (Verified Allergy, Intermediate, UNKNOWN, 11/09/15) ROS Review of System UNABLE TO OBTAIN Physical Exam General: Alert, Cooperative, No acute distress HEENT: Atraumatic, PERRLA Lungs: Clear to auscultation Heart: Regular rate Abdomen: Normal bowel sounds, Soft, No tenderness Extremities: No clubbing Skin: No breakdown, No significant lesion Neuro: Other (NO ASYMMETRY OF LIMBS) Psych/Mental Status: Other (FLAT CONFUSED AFFECT) Vitals VITALS Vital Signs Date Time Temp Pulse Resp B/P (MAP) Pulse Ox O2 Delivery O2 Flow Rate FiO2 11/09/19 09:34 84 185/78 (113) 11/09/19 07:30 97.8 18 99 Room Air 97.8 Labs Labs Laboratory Tests Test 11/08/19 12:30 11/08/19 13:40 Sodium Level 144 mmol/L (136-145) Potassium Level 4.7 mmol/L (3.5-5.1) Chloride Level 111 mmol/L (98-107) Carbon Dioxide Level 22 mmol/L (21-32) Anion Gap 11 (6-14) Blood Urea Nitrogen 20 mg/dL (7-20) Creatinine 2.0 mg/dL (0.6-1.0) Estimated GFR (Cockcroft-Gault) 30.9 BUN/Creatinine Ratio 10 (6-20) Glucose Level 96 mg/dL (70-99) Calcium Level 8.4 mg/dL (8.5-10.1) Magnesium Level 1.8 mg/dL (1.8-2.4) Total Bilirubin < 0.1 mg/dL (0.2-1.0) Aspartate Amino Transf (AST/SGOT) 18 U/L (15-37) Alanine Aminotransferase (ALT/SGPT) 14 U/L (14-59) Alkaline Phosphatase 61 U/L (46-116) Troponin I Quantitative 0.018 ng/mL (0.000-0.055) Total Protein 6.4 g/dL (6.4-8.2) Albumin 2.4 g/dL (3.4-5.0) Albumin/Globulin Ratio 0.6 (1.0-1.7) White Blood Count 5.2 x10^3/uL (4.0-11.0) Red Blood Count 4.50 x10^6/uL (3.50-5.40) Hemoglobin 11.1 g/dL (12.0-15.5) Hematocrit 35.5 % (36.0-47.0) Mean Corpuscular Volume 79 fL (79-100) Mean Corpuscular Hemoglobin 25 pg (25-35) Mean Corpuscular Hemoglobin Concent 31 g/dL (31-37) Red Cell Distribution Width 17.3 % (11.5-14.5) Platelet Count 135 x10^3/uL (140-400) Neutrophils (%) (Auto) 73 % (31-73) Lymphocytes (%) (Auto) 13 % (24-48) Monocytes (%) (Auto) 14 % (0-9) Eosinophils (%) (Auto) 0 % (0-3) Basophils (%) (Auto) 0 % (0-3) Neutrophils # (Auto) 3.8 x10^3/uL (1.8-7.7) Lymphocytes # (Auto) 0.7 x10^3/uL (1.0-4.8) Monocytes # (Auto) 0.7 x10^3/uL (0.0-1.1) Eosinophils # (Auto) 0.0 x10^3/uL (0.0-0.7) Basophils # (Auto) 0.0 x10^3/uL (0.0-0.2) Prothrombin Time 14.8 SEC (11.7-14.0) Prothromb Time International Ratio 1.2 (0.8-1.1) Activated Partial Thromboplast Time 27 SEC (24-38) Laboratory Tests Test 11/08/19 12:30 11/08/19 13:40 Sodium Level 144 mmol/L (136-145) Potassium Level 4.7 mmol/L (3.5-5.1) Chloride Level 111 mmol/L (98-107) Carbon Dioxide Level 22 mmol/L (21-32) Anion Gap 11 (6-14) Blood Urea Nitrogen 20 mg/dL (7-20) Creatinine 2.0 mg/dL (0.6-1.0) Estimated GFR (Cockcroft-Gault) 30.9 BUN/Creatinine Ratio 10 (6-20) Glucose Level 96 mg/dL (70-99) Calcium Level 8.4 mg/dL (8.5-10.1) Magnesium Level 1.8 mg/dL (1.8-2.4) Total Bilirubin < 0.1 mg/dL (0.2-1.0) Aspartate Amino Transf (AST/SGOT) 18 U/L (15-37) Alanine Aminotransferase (ALT/SGPT) 14 U/L (14-59) Alkaline Phosphatase 61 U/L (46-116) Troponin I Quantitative 0.018 ng/mL (0.000-0.055) Total Protein 6.4 g/dL (6.4-8.2) Albumin 2.4 g/dL (3.4-5.0) Albumin/Globulin Ratio 0.6 (1.0-1.7) White Blood Count 5.2 x10^3/uL (4.0-11.0) Red Blood Count 4.50 x10^6/uL (3.50-5.40) Hemoglobin 11.1 g/dL (12.0-15.5) Hematocrit 35.5 % (36.0-47.0) Mean Corpuscular Volume 79 fL (79-100) Mean Corpuscular Hemoglobin 25 pg (25-35) Mean Corpuscular Hemoglobin Concent 31 g/dL (31-37) Red Cell Distribution Width 17.3 % (11.5-14.5) Platelet Count 135 x10^3/uL (140-400) Neutrophils (%) (Auto) 73 % (31-73) Lymphocytes (%) (Auto) 13 % (24-48) Monocytes (%) (Auto) 14 % (0-9) Eosinophils (%) (Auto) 0 % (0-3) Basophils (%) (Auto) 0 % (0-3) Neutrophils # (Auto) 3.8 x10^3/uL (1.8-7.7) Lymphocytes # (Auto) 0.7 x10^3/uL (1.0-4.8) Monocytes # (Auto) 0.7 x10^3/uL (0.0-1.1) Eosinophils # (Auto) 0.0 x10^3/uL (0.0-0.7) Basophils # (Auto) 0.0 x10^3/uL (0.0-0.2) Prothrombin Time 14.8 SEC (11.7-14.0) Prothromb Time International Ratio 1.2 (0.8-1.1) Activated Partial Thromboplast Time 27 SEC (24-38) Assessment/Plan Assessment/Plan IMP SYNCOPE CKD STAGE 3-CR OF 2.0 IS BASELINE HTN-UNCONTROLLED HX OF EPILEPSY EXTRAPYRAMIDAL SYNDROME PLAN START [facility] NEURO EVAL AND TX RENAL FX HAS NOT CHANGED SINCE 2017 WILL FOLLOW JELLY MENDOZA MD Nov 09, 2019 11:06
--- NOTE | 2019-11-09 11:38 | DS ---
DATE OF DISCHARGE: 11/09/2019 ADMISSION DIAGNOSES: Syncope and acute kidney injury. DISCHARGE DIAGNOSES: Resolving syncope and resolving acute kidney injury, history of cognitive impairment, multiple personality disorder, hypertension, hyperlipidemia, depression, constipation, hypothyroidism, seizures, schizophrenia, and urinary tract infection. CONSULTS: Dr. Emerson. PROCEDURES: None. HOSPITAL COURSE: The patient is a pleasant elderly female who presented with mental status change. She apparently fainted yesterday and fell. We admitted the patient for observation. This morning, she was seen by Dr. Juarez. Clinically, the patient is at her baseline. Dr. Emerson feels like she probably had a vasovagal syncope. We plan to discharge with close outpatient followup. DISPOSITION: Home. ACTIVITY: As tolerated. DIET: Low sodium MEDICATIONS: Please see MRAD. TOTAL TIME: 32 minutes. KARUNAL Kierra CRAIG DO DR: MILLIE/sacha JOB#: [id number] / [id number]
[2019-11-09] MEDS: amLODIPine BESYLATE 5 MG TABLET PO SCH (12:02)
--- NOTE | 2019-11-09 12:29 | NUR ---
SW following for discharge planning. SW reviewed chart and spoke with RN. Pt is a LTC resident at [facility] admitted for observation. Pt has a guardian per chart review. Pt on oral medication and room air. Pt ready for discharge today, 11/09/2019. SEAN phoned and faxed clinicals and discharge orders to [facility], , (fax). SENA spoke with facility SW but they are not able to take pt back without a negative COVID test result. SW notified RN and COVID test was ordered STAT. Pt to discharge back to [place] via facility transportation once COVID results are back. RN to call report. No further SW needs at this time.
--- NOTE | 2019-11-09 14:56 | RAD ---
3 views lumbar spine 11/09/2019 8:40 AM Indication: Reason: fall, back pain x1 day ago / Spl. Instructions: / History: Comparison: Lumbar spine radiographs November 09, 2015 Findings: No evidence of acute fracture or alignment abnormality is identified. Vertebral body heights are maintained. Disc spaces are maintained. Surgical clips in the left abdomen noted. There is facet arthrosis at L4-L5, and there is severe facet arthrosis at L5-S1. Findings are similar to prior study. Impression: Degenerative changes of the lumbar spine without evidence of acute osseous abnormality. Electronically signed by: Charles Mckinnon MD (11/09/2019 2:53 PM) [id number]
[2019-11-09] MEDS: TOPIRAMATE 100 MG TABLET. PO SCH (20:49)
[2019-11-09] MEDS: risperiDONE 1 MG TABLET. PO SCH (20:50)
[2019-11-09] MEDS ORDERED: DIVALPROEX EXTENDED RELEASE 500 MG TAB.ER.24H. PO SCH (21:00)
--- NOTE | 2019-11-09 23:44 | NUR ---
Patient had episode of vomiting. Stated she had been feeling nauseas all day. Approx 350cc undigested food observed. Patient states she is feeling better after vomiting. Will continue to monitor.
[2019-11-10 03:51] VITALS: BP 144/75
[2019-11-10 05:01] LABS: CALCIUM 8.4 mg/dL (8.5-10.1); CREATININE 1.7 mg/dL (0.6-1.0); GFR 37.2; POTASSIUM 4.8 mmol/L (3.5-5.1)
[2019-11-10] MEDS ORDERED: LEVOTHYROXINE 75 MCG TABLET PO SCH (07:00)
[2019-11-10 07:18] VITALS: BP 115/68
[2019-11-10] MEDS: TOPIRAMATE 100 MG TABLET. PO SCH (08:16)
[2019-11-10] MEDS: risperiDONE 1 MG TABLET. PO SCH (08:17)
[2019-11-10] MEDS: amLODIPine BESYLATE 5 MG TABLET PO SCH (08:17)
--- NOTE | 2019-11-10 08:30 | NUR ---
PT CONTINUOUSLY WALKS OUT TO NURSES UNIT WITHOUT MASK ON TO SPEAK TO STAFF. NURSING STAFF EDUCATED PATIENT ABOUT THE IMPORTANCE OF WEARING MASK AND REMAINING IN ROOM AND HOW TO USE CALL LIGHT TO NOTIFY STAFF OF HELP. WILL CONTINUE TO REINFORCE NEEDED.
[2019-11-10] MEDS ORDERED: ASPIRIN CHEWABLE 81 MG TABLET. PO SCH (09:00)
[2019-11-10 11:29] VITALS: BP 122/72
--- NOTE | 2019-11-10 12:23 | PDOC ---
[facility] [facility] PROGRESS NOTE Chief Complaint Chief Complaint Syncope Fall Cognitive impairment, multiple personality disorder, hypertension, hyperlipidemia, depression, constipation, hypothyroidism, seizure, schizophrenia, UTI. History of Present Illness History of Present Illness 11/09/2021 Patient seen and examined She is resting with no apparent distress We are awaiting her Covid-19 testing if that is negative she is [facility] Discussed with RN Chart reviewed Vitals/I&O Vitals/I&O: Vital Signs Date Time Temp Pulse Resp B/P (MAP) Pulse Ox O2 Delivery O2 Flow Rate FiO2 11/10/19 11:29 98.5 62 16 122/72 (89) 97 Room Air 98.5 I & O 11/09/19 11/09/19 11/10/19 15:00 23:00 07:00 Intake Total 2200 ml 1800 ml 480 ml Output Total 350 ml Balance 2200 ml 1800 ml 130 ml Physical Exam General: No acute distress Heart: Regular rate Abdomen: Normal bowel sounds, Soft, No tenderness Extremities: No clubbing Skin: No breakdown, No significant lesion Labs Labs: Laboratory Tests Test 11/10/19 03:15 Sodium Level 139 mmol/L (136-145) Potassium Level 4.8 mmol/L (3.5-5.1) Chloride Level 108 mmol/L (98-107) Carbon Dioxide Level 22 mmol/L (21-32) Anion Gap 9 (6-14) Blood Urea Nitrogen 22 mg/dL (7-20) Creatinine 1.7 mg/dL (0.6-1.0) Estimated GFR (Cockcroft-Gault) 37.2 Glucose Level 102 mg/dL (70-99) Calcium Level 8.4 mg/dL (8.5-10.1) Assessment and Plan Assessmemt and Plan Problems Medical Problems: (1) AURA (acute kidney injury) Status: Acut Fall and syncope Cognitive impairment, multiple personality disorder, hypertension, hyperlipidemia, depression, constipation, hypothyroidism, seizure, schizophrenia, UTI. Plan If her Covid-19 test is negative we are going to discharge this afternoon Comment Review of Relevant I have reviewed the following items bianca (where applicable) has been applied. Medications: Current Medications Medications (Trade) Dose Ordered Sig/Horace Route PRN Reason Start Time Stop Time Status Last Admin Dose Admin Aspirin (Aspirin Chewable) 81 mg DAILY PO 11/10/19 09:00 11/10/19 08:17 Divalproex Sodium (Depakote Er) 1,500 mg QHS PO 11/09/19 21:00 11/09/19 20:50 Levothyroxine Sodium (Synthroid) 75 mcg DAILY07 PO 11/10/19 07:00 11/10/19 06:25 Topiramate (Topamax) 100 mg BID PO 11/09/19 21:00 11/10/19 08:16 Risperidone (RisperDAL) 4 mg BID PO 11/09/19 21:00 11/10/19 08:17 Justicifation of Admission Dx: Justifications for Admission: Justification of Admission Dx: Yes Altered Mental Status: Altered Mental Status BERTHA CRAIG III DO Nov 10, 2019 12:23
[2019-11-10 15:11] VITALS: BP 159/88
--- NOTE | 2019-11-10 15:12 | PDOC ---
PROGRESS NOTES Assessment Problems Medical Problems: (1) AURA (acute kidney injury) Status: Acute Vasovagal syncope History of epilepsy, on anticonvulsants, I suspect they are more for her psychiatric issues History of multiple psychiatric illnesses as listed above. Extrapyramidal syndrome Strabismus Back pain, leg weakness due to pain, also possible psychiatric component. Leg weakness indeed has resolved. Lumbar x-ray negative Plan No additional neurological studies such as EEG needed. Doesn not need lumbar MRI Continue current anticonvulsants. Agree with plan to return to [facility] today if COVID negative Subjective no complaints Objective Vital Signs Date Time Temp Pulse Resp B/P (MAP) Pulse Ox O2 Delivery O2 Flow Rate FiO2 11/10/19 11:29 98.5 62 16 122/72 (89) 97 Room Air 98.5 Intake and Output 11/10/19 07:00 Intake Total 4480 ml Output Total 350 ml Balance 4130 ml Intake Oral 4480 ml Output Emesis 350 ml # Voids 12 # Bowel Movements 3 PHYSICAL EXAM Alert. Oriented to time, place and person. PERRL. EOMI. CN: no focal findings. Muscle tone: normal. Muscle strength: 4/5 DTR: 1+ Plantar reflex: flexor Gait: Ambulates with walker Sensory exam: no abnormal findings. No cerebellar signs elicited. No tremor Review of Relevant I have reviewed the following items bianca (where applicable) has been applied. Labs Laboratory Tests Test 11/10/19 03:15 Sodium Level 139 mmol/L (136-145) Potassium Level 4.8 mmol/L (3.5-5.1) Chloride Level 108 mmol/L (98-107) Carbon Dioxide Level 22 mmol/L (21-32) Anion Gap 9 (6-14) Blood Urea Nitrogen 22 mg/dL (7-20) Creatinine 1.7 mg/dL (0.6-1.0) Estimated GFR (Cockcroft-Gault) 37.2 Glucose Level 102 mg/dL (70-99) Calcium Level 8.4 mg/dL (8.5-10.1) Laboratory Tests Test 11/10/19 03:15 Sodium Level 139 mmol/L (136-145) Potassium Level 4.8 mmol/L (3.5-5.1) Chloride Level 108 mmol/L (98-107) Carbon Dioxide Level 22 mmol/L (21-32) Anion Gap 9 (6-14) Blood Urea Nitrogen 22 mg/dL (7-20) Creatinine 1.7 mg/dL (0.6-1.0) Estimated GFR (Cockcroft-Gault) 37.2 Glucose Level 102 mg/dL (70-99) Calcium Level 8.4 mg/dL (8.5-10.1) Medications Current Medications Sodium Chloride 1,000 ml @ 1,000 mls/hr 1X ONCE IV Last administered on 11/08/19at 17:00; Start 11/08/19 at 14:30; Stop 11/08/19 at 15:29; Status DC Acetaminophen (Tylenol) 650 mg PRN Q6HRS PO ; Start 11/09/19 at 04:15; Stop 11/09/19 at 04:39; Status DC Acetaminophen (Tylenol) 650 mg PRN Q6HRS PRN PO HEADACHE / TEMP > 100.3'F Last administered on 11/09/19at 20:54; Start 11/09/19 at 04:45 Aspirin (Aspirin Chewable) 81 mg DAILY PO Last administered on 11/10/19at 08:17; Start 11/10/19 at 09:00 Divalproex Sodium (Depakote Er) 1,500 mg QHS PO Last administered on 11/09/19at 20:50; Start 11/09/19 at 21:00 Levothyroxine Sodium (Synthroid) 75 mcg DAILY07 PO Last administered on 11/10/19at 06:25; Start 11/10/19 at 07:00 Al Hydroxide/Mg Hydroxide (Mylanta Plus Xs) 30 ml PRN Q4HRS PRN PO HEARTBURN / GAS; Start 11/09/19 at 09:15 Magnesium Hydroxide (Milk Of Magnesia) 2,400 mg PRN DAILY PRN PO CONSTIPATION- 2ND CHOICE; Start 11/09/19 at 09:15 Polyethylene Glycol (miraLAX PACKET) 17 gm PRN DAILY PRN PO CONSTIPATION- 1ST CHOICE; Start 11/09/19 at 09:15 Topiramate (Topamax) 100 mg BID PO Last administered on 11/10/19at 08:16; Start 11/09/19 at 21:00 Risperidone (RisperDAL) 4 mg BID PO Last administered on 11/10/19at 08:17; Start 11/09/19 at 21:00 Amlodipine Besylate (Norvasc) 5 mg DAILY PO Last administered on 11/10/19at 08:17; Start 11/09/19 at 11:30 Active Scripts Active Reported Zoloft (Sertraline Hcl) 25 Mg Tablet 1 Tab PO DAILY Nystatin 15 Gm Powder 1 Carmen TP PRN PRN 7 Days apply to affected area(s) Miralax (Polyethylene Glycol 3350) 17 Gm Powd.pack 1 Packet PO PRN Q24HRS PRN 2 Days dissolve in water Miralax (Polyethylene Glycol 3350) 17 Gm Powd.pack 1 Packet PO QMWF 2 Days dissolve in water Depakote Er (Divalproex Sodium) 500 Mg Tab.er.24h 3 Tab PO QHS Mylanta Maximum Strength Liq (Mag Hydrox/Aluminum Hyd/Simeth) 355 Ml Oral.susp 30 Ml PO PRN Q4HRS PRN Risperdal Consta (Risperidone Microspheres) 37.5 Mg/2 Ml Disp.syrin 50 Mg IM Q2WKS Topamax (Topiramate) 100 Mg Tablet 1 Tab PO BID Risperdal (Risperidone) 4 Mg Tablet 1 Tab PO BID Milk Of Magnesia (Magnesium Hydroxide) 400 Mg/5 Ml Oral.susp 30 Ml PO DAILY PRN Anti-Diarrhea (Loperamide Hcl) 2 Mg Tablet 2 Mg PO PRN Levothyroxine Sodium 75 Mcg Tablet 1 Tab PO DAILY Aspirin 81 Mg Tab.chew 1 Tab PO DAILY Tylenol (Acetaminophen) 325 Mg Tablet 2 Tab PO PRN Q6HRS Vitals/I & O Vital Sign - Last 24 Hours 11/09/19 11/09/19 11/09/19 11/10/19 19:29 20:00 23:13 03:51 Temp 97.6 97.5 98.2 97.6 97.5 98.2 Pulse 63 57 74 Resp 16 16 16 B/P (MAP) 130/67 (88) 153/102 (119) 144/75 (98) Pulse Ox 99 96 95 O2 Delivery Room Air Room Air Room Air Room Air 11/10/19 11/10/19 11/10/19 11/10/19 07:18 08:00 08:17 11:29 Temp 98.2 98.5 98.2 98.5 Pulse 85 85 62 Resp 18 16 B/P (MAP) 115/68 (84) 115/68 122/72 (89) Pulse Ox 98 97 O2 Delivery Room Air Room Air Room Air Intake and Output 11/09/19 11/09/19 11/10/19 15:00 23:00 07:00 Intake Total 2200 ml 1800 ml 480 ml Output Total 350 ml Balance 2200 ml 1800 ml 130 ml Justicifation of Admission Dx: Justifications for Admission: Justification of Admission Dx: Yes Altered Mental Status: Altered Mental Status SANAM TAPIA MD Nov 10, 2019 15:12
--- NOTE | 2019-11-10 17:25 | NUR ---
Pt COVID test came back negative. This RN called [facility] and PRERNA Herrera at facility set up transport through [facility] between [phone]. Report called via telephone to PRERNA Herrera. All clinical paperwork faxed to [phone].
--- NOTE | 2019-11-10 18:00 | NUR ---
Discharge Note: [facility] Discharge instructions and discharge home medications reviewed with Sharon, at [facility] and a copy given. All questions have been answered and understanding verbalized. Patient discharged to [facility] with [facility] via Wheelchair.
== END 2019-11-10 18:00 | disposition home or self-care (01) ==
LOC: ER 11:34 → ED HOLD 14:46 → 6 SOUTH 17:15
PROVIDERS: ADMIT Internal Medicine; ATTEND Internal Medicine
DX: Z03.818 Encounter for observation for suspected exposure to other biological agents ruled out (principal); R55 Syncope and collapse; N17.9 Acute kidney failure, unspecified; D64.9 Anemia, unspecified; I10 Essential (primary) hypertension; E78.5 Hyperlipidemia, unspecified; F41.9 Anxiety disorder, unspecified; F20.9 Schizophrenia, unspecified; F32.9 Major depressive disorder, single episode, unspecified; E03.9 Hypothyroidism, unspecified; H50.9 Unspecified strabismus; G25.9 Extrapyramidal and movement disorder, unspecified; K59.00 Constipation, unspecified; Z87.442 Personal history of urinary calculi; Z86.73 Personal history of transient ischemic attack (TIA), and cerebral infarction without residual deficits; Z79.82 Long term (current) use of aspirin; W19.XXXA Unspecified fall, initial encounter; Y93.89 Activity, other specified; Y92.89 Other specified places as the place of occurrence of the external cause; Y99.8 Other external cause status
CPT/HCPCS: 36415; 70450; 71045; 72100; 72125; 80048; 80053; 83735; 84484; 85025; 85610; 85730; 93005; 96360; 96361; 97161; 97165; 97535; 99285; G0378; J7030; U0003; G0379

== ENCOUNTER 2020-05-28 20:00 | Emergency (ER) | payer MEDICAID ==
[~2020-05-28] VITALS: Ht 162.6 cm; Wt 72.0 kg
[~2020-05-28 20:00] MED LIST changes: +DIVA500T4 PO; +IPRA4AER IH; +LURA20TA PO; +MAG-115 PO; +NYST15PO9 TP; +POLY17PO29 PO; +SERT25TA PO
[2020-05-28 20:58] LABS: BASO % 1 % (0-3); EOS % 0 % (0-3); HEMOGLOBIN 8.7 g/dL (12.0-15.5); LYMPH # 0.9 x10^3/uL (1.0-4.8); LYMPH % 25 % (24-48); MEAN CORPUSCULAR HEMOGLOBIN 25 pg (25-35); MEAN CORPUSCULAR HGB CONC 31 g/dL (31-37); MEAN CORPUSCULAR VOLUME 81 fL (79-100); MONO # 1.3 x10^3/uL (0.0-1.1); MONO % 35 % (0-9); NEUT # 1.5 x10^3/uL (1.8-7.7); NEUT % 40 % (31-73); PLATELET COUNT 113 x10^3/uL (140-400); RED BLOOD COUNT 3.45 x10^6/uL (3.50-5.40); RED CELL DISTRIBUTION WIDTH 19.2 % (11.5-14.5); WHITE BLOOD COUNT 3.8 x10^3/uL (4.0-11.0)
[2020-05-28 20:59] LABS: BILIRUBIN,URINE NEGATIVE (NEG); CLARITY,URINE CLEAR; COLOR,URINE YELLOW; NITRITE,URINE NEGATIVE (NEG); PROTEIN,URINE >=300 mg/dL (NEG-TRACE)
[2020-05-28 21:19] LABS: BACTERIA,URINE 0 /HPF (0-FEW); WBC,URINE RARE /HPF (0-4)
[2020-05-28 21:39] LABS: % ATYL 1 % (0-0); % BANDS 5 % (0-9); % LYMPHS 28 % (24-48); % METAS 1 % (0-0); % MONOS 21 % (0-10); % SEGS 44 % (35-66); ANISOCYTOSIS SLIGHT; HYPOCHROMIA SLIGHT; PLT ESTIMATE DECREASED (ADEQUATE); POLYCHROMASIA SLIGHT
[2020-05-28 21:40] LABS: POIKILOCYTOSIS SLIGHT
--- NOTE | 2020-05-28 21:46 | RAD ---
Exam: CT of abdomen and pelvis without contrast INDICATION: Abdominal pain, decreased appetite TECHNIQUE: Sequential axial images through the abdomen and pelvis obtained without IV contrast. Sagit sonny and coronal reformatted images were reconstructed from the axial data and reviewed. Comparisons: 05/21/2020 FINDINGS: Heart size is normal. No pericardial effusion. Visualized lung bases are clear. No pleural effusion. Evaluation of solid organs limited secondary to noncontrast technique. Liver, spleen, pancreas, and adrenals are unremarkable. Gallbladder surgically absent. Postoperative changes of left-sided nephrectomy. No perinephric inflammation or hydronephrosis. No re nal or ureteral calculi are identified. Bladder is partially distended and not well evaluated. Uterus is not enlarged. Trace free fluid in th e pelvis. No abnormal adnexal mass. Large and small bowel are unremarkable. Appendix is normal. No free abdominal air. Stable cystic lesi on in the right paracolic gutter measuring 4.3 cm in diameter. Abdominal aorta has a normal course and caliber. No enlarged abdominal lymph nodes are identified. No suspicious osseous lesions or acute fractures. IMPRESSION: No acute process identified in the abdomen or pelvis. Exposure: One or more of the following in the visualized dose reduction techniques were utilized for this examination: 1. Automated exposure control 2. Adjustment of the MA and/or KV according to patient size 3. Use of iterative of reconstructive technique Electronically signed by: Jonah Patel MD (05/28/2020 9:44 PM) [facility]
[2020-05-28 22:57] LABS: CALCIUM 8.9 mg/dL (8.5-10.1); CREATININE 2.2 mg/dL (0.6-1.0); GFR 27.5; POTASSIUM 4.9 mmol/L (3.5-5.1)
[2020-05-28 23:04] LABS: ALBUMIN 1.6 g/dL (3.4-5.0); ALBUMIN/GLOBULIN RATIO 0.3 (1.0-1.7); MAGNESIUM 1.8 mg/dL (1.8-2.4); TOTAL BILIRUBIN 0.3 mg/dL (0.2-1.0); TOTAL PROTEIN 6.6 g/dL (6.4-8.2)
[2020-05-29] MEDS: ONDANSETRON PF 4 MG/2 ML VIAL. IVP ONE (00:05)
[2020-05-29] MEDS: IV NORMAL SALINE 500ML BAG 500 ML IV ONE (00:05)
--- NOTE | 2020-05-29 00:31 | PHYS DOC ---
Past Medical History Past Medical History: Anxiety, Cancer, Constipation, Depression, High Cholesterol, Hypertension, Hypothyroid, Seizure, Schizophrenia, UTI, Other Additional Past Medical Histor: MULTIPLE PERSONALITY DISORDER, INTELLECTUAL DI SABILITIES Past Surgical History: Other Additional Past Surgical Histo: UNKNOWN SURGERY Smoking Status: Never Smoker Alcohol Use: None Drug Use: None Adult General Chief Complaint Chief Complaint: ALTERED MENTAL STATUS HPI HPI Patient is a 60 year old Extensive past medical history which includes was not limited to developmental delay, hypertension hyperlipidemia who presents emergency department due to concern for altered mental status and poor p.o. intake. According to shelter staff patient has been having decreased oral intake and has been having nausea and vomiting whenever she does. Of note patient was discharged from our hospital approximately a week ago after she was diagnosed with a retroperitoneal mass. At that time she has been having worsening nausea and vomiting. Patient states that she is having some mild pain gastric abdominal pain denies any fever, chills, chest pain or shortness of breath Review of Systems Review of Systems Constitutional: Denies fever or chills [] Eyes: Denies change in visual acuity, redness, or eye pain [] HENT: Denies nasal congestion or sore throat [] Respiratory: Denies cough or shortness of breath [] Cardiovascular: No additional information not addressed in HPI [] GI: Denies abdominal pain, nausea, vomiting, bloody stools or diarrhea [] : Denies dysuria or hematuria [] Musculoskeletal: Denies back pain or joint pain [] Integument: Denies rash or skin lesions [] Neurologic: Denies headache, focal weakness or sensory changes [] Endocrine: Denies polyuria or polydipsia [] All other systems were reviewed and found to be within normal limits, except as documented in this note. Current Medications Current Medications Current Medications Medications (Trade) Dose Ordered Sig/Horace Start Time Stop Time Status Last Admin Dose Admin Ondansetron HCl (Zofran) 4 mg 1X ONCE 05/29/20 01:30 05/29/20 01:31 Sodium Chloride 500 ml @ 500 mls/hr 1X ONCE 05/29/20 00:30 05/29/20 01:29 Allergies Allergies Allergies Coded Allergies Type Severity Reaction Last Updated Verified haloperidol Allergy Intermediate UNKNOWN 11/09/15 Yes iron dextran complex Allergy Intermediate UNKNOWN 11/09/15 Yes Physical Exam Physical Exam Constitutional: Well developed, well nourished, no acute distress, non-toxic appearance. [] HENT: Normocephalic, atraumatic, bilateral external ears normal, oropharynx moist, no oral exudates, nose normal. [] Eyes: PERRLA, EOMI, conjunctiva normal, no discharge. [] Neck: Normal range of motion, no tenderness, supple, no stridor. [] Cardiovascular:Heart rate regular rhythm, no murmur [] Lungs & Thorax: Bilateral breath sounds clear to auscultation [] Abdomen: Bowel sounds normal, soft, no tenderness, no masses, no pulsatile masses. Moderate epigastric tenderness Skin: Warm, dry, no erythema, no rash. [] Back: No tenderness, no CVA tenderness. [] Extremities: No tenderness, no cyanosis, no clubbing, ROM intact, no edema. [] Neurologic: Alert and oriented X 3, normal motor function, normal sensory function, no focal deficits noted. [] Psychologic: Affect normal, judgement normal, mood normal. [] Current Patient Data Vital Signs Vital Signs Date Time Temp Pulse Resp B/P (MAP) Pulse Ox O2 Delivery O2 Flow Rate FiO2 05/28/20 20:00 98.6 104 22 140/76 (97) 99 Room Air 98.6 Lab Values Laboratory Tests Test 05/28/20 20:07 05/28/20 20:15 05/28/20 21:10 05/28/20 22:30 White Blood Count 3.8 x10^3/uL (4.0-11.0) L Red Blood Count 3.45 x10^6/uL (3.50-5.40) L Hemoglobin 8.7 g/dL (12.0-15.5) L Hematocrit 28.0 % (36.0-47.0) L Mean Corpuscular Volume 81 fL (79-100) Mean Corpuscular Hemoglobin 25 pg (25-35) Mean Corpuscular Hemoglobin Concent 31 g/dL (31-37) Red Cell Distribution Width 19.2 % (11.5-14.5) H Platelet Count 113 x10^3/uL (140-400) L Neutrophils (%) (Auto) 40 % (31-73) Lymphocytes (%) (Auto) 25 % (24-48) Monocytes (%) (Auto) 35 % (0-9) H Eosinophils (%) (Auto) 0 % (0-3) Basophils (%) (Auto) 1 % (0-3) Neutrophils # (Auto) 1.5 x10^3/uL (1.8-7.7) L Lymphocytes # (Auto) 0.9 x10^3/uL (1.0-4.8) L Monocytes # (Auto) 1.3 x10^3/uL (0.0-1.1) H Eosinophils # (Auto) 0.0 x10^3/uL (0.0-0.7) Basophils # (Auto) 0.0 x10^3/uL (0.0-0.2) Segmented Neutrophils % 44 % (35-66) Band Neutrophils % 5 % (0-9) Lymphocytes % 28 % (24-48) Atypical Lymphocytes % (Manual) 1 % (0-0) H Monocytes % 21 % (0-10) H Metamyelocytes % 1 % (0-0) H Platelet Estimate Decreased (ADEQUATE) Polychromasia Slight Hypochromasia Slight Poikilocytosis Slight Anisocytosis Slight Troponin I Quantitative 0.036 ng/mL (0.000-0.055) Urine Collection Type U cath Urine Color Yellow Urine Clarity Clear Urine pH 8.0 (<5.0-8.0) Urine Specific [place] 1.015 (1.000-1.030) Urine Protein >=300 mg/dL (NEG-TRACE) Urine Glucose (UA) Negative mg/dL (NEG) Urine Ketones (Stick) Negative mg/dL (NEG) Urine Blood Small (NEG) Urine Nitrite Negative (NEG) Urine Bilirubin Negative (NEG) Urine Urobilinogen Dipstick 1.0 mg/dL (0.2 mg/dL) Urine Leukocyte Esterase Negative (NEG) Urine RBC 3-5 /HPF (0-2) Urine WBC Rare /HPF (0-4) Urine Squamous Epithelial Cells Few /LPF Urine Bacteria 0 /HPF (0-FEW) Urine Mucus Slight /LPF Ammonia 26 mcmol/L (11-34) Sodium Level 141 mmol/L (136-145) Potassium Level 4.9 mmol/L (3.5-5.1) Chloride Level 110 mmol/L (98-107) H Carbon Dioxide Level 24 mmol/L (21-32) Anion Gap 7 (6-14) Blood Urea Nitrogen 21 mg/dL (7-20) H Creatinine 2.2 mg/dL (0.6-1.0) H Estimated GFR (Cockcroft-Gault) 27.5 BUN/Creatinine Ratio 10 (6-20) Glucose Level 89 mg/dL (70-99) Calcium Level 8.9 mg/dL (8.5-10.1) Magnesium Level 1.8 mg/dL (1.8-2.4) Total Bilirubin 0.3 mg/dL (0.2-1.0) Aspartate Amino Transferase (AST) 15 U/L (15-37) Alanine Aminotransferase (ALT) 7 U/L (14-59) L Alkaline Phosphatase 56 U/L (46-116) Creatine Kinase 237 U/L (26-192) H Total Protein 6.6 g/dL (6.4-8.2) Albumin 1.6 g/dL (3.4-5.0) L Albumin/Globulin Ratio 0.3 (1.0-1.7) L Laboratory Tests 05/28/20 20:07 Laboratory Tests 05/28/20 22:30 EKG EKG [] Radiology/Procedures Radiology/Procedures Exam: CT of abdomen and pelvis without contrast INDICATION: Abdominal pain, decreased appetite TECHNIQUE: Sequential axial images through the abdomen and pelvis obtained without IV contrast. Sagittal and coronal reformatted images were reconstructed from the axial data and reviewed. Comparisons: 05/21/2020 FINDINGS: Heart size is normal. No pericardial effusion. Visualized lung bases are clear. No pleural effusion. Evaluation of solid organs limited secondary to noncontrast technique. Liver, spleen, pancreas, and adrenals are unremarkable. Gallbladder surgically absent. Postoperative changes of left-sided nephrectomy. No perinephric inflammation or hydronephrosis. No renal or ureteral calculi are identified. Bladder is partially distended and not well evaluated. Uterus is not enlarged. Trace free fluid in the pelvis. No abnormal adnexal mass. Large and small bowel are unremarkable. Appendix is normal. No free abdominal air. Stable cystic lesion in the right paracolic gutter measuring 4.3 cm in diameter. Abdominal aorta has a normal course and caliber. No enlarged abdominal lymph nodes are identified. No suspicious osseous lesions or acute fractures. IMPRESSION: No acute process identified in the abdomen or pelvis. Exposure: One or more of the following in the visualized dose reduction techniques were utilized for this examination: 1. Automated exposure control 2. Adjustment of the MA and/or KV according to patient size 3. Use of iterative of reconstructive technique Electronically signed by: Jonah Patel MD (05/28/2020 9:44 PM) [facility] Course & Med Decision Making Course & Med Decision Making Pertinent Labs and Imaging studies reviewed. (See chart for details) 60-year-old female presented emergency department with ongoing nausea vomiting as well as epigastric abdominal tenderness concern for worsening of her known mass lesion and possible cause of obstruction or small bowel obstruction. Will obtain basic labs and will need a CT scan of the abdomen pelvis. Patient has a known history of chronic kidney disease therefore will need to perform CT scan without IV\contrast 0111 -care delayed secondary to other critically ill patients. Patient however is not creatinine appears to be in normal limits. CT scan of the abdomen was obtained and negative. Patient started oral intake at this point. Will discharge home with oral Zofran to help with her symptoms. At this time no other significant findings. Patient is currently resting comfortably, sleeping in her bed and not complaining of any issues. I spoken with the patient and her caregivers. I explained the patient's condition, diagnoses and treatment plan based on the information available to me at this time. I have answered the patient and her caregiver's questions and addressed any concerns. The patient and her caregivers have a good understanding of patient's diagnosis, condition and treatment plan as can be expected at this point. Vital signs have been stable. Patient's condition is stable and appropriate for discharge from the emergency department. Patient will pursue further outpatient evaluation with primary care physician or other designated or consulting physician as outlined in the discharge instructions. The patient and/or caregivers are agreeable to this plan of care and follow-up instructions have been explained in detail. The patient and/or caregivers have received these instructions in written form and have expressed an understanding of the discharge instructions. The patient and/or caregivers are aware that any significant change of condition or worsening of symptoms should prompt immediate return to this or the closest emergency department or call to 911. Dragon Disclaimer Dragon Disclaimer This electronic medical record was generated, in whole or in part, using a voice recognition dictation system. Departure Departure Impression: Primary Impression: Abdominal pain Disposition: 01 DC HOME SELF CARE/HOMELESS Condition: GOOD Referrals: CRISTINE ZARAGOZA MD (PCP) Patient Instructions: Abdominal Pain (Nonspecific) Scripts Ondansetron Hcl (ZOFRAN) 4 Mg Tablet 1 TAB PO PRN Q6-8HRS for nausea, #12 TAB Prov: CRISTINE DAVIS MD 05/29/20 CRISTINE DAVIS MD May 29, 2020 00:31
[2020-05-29] MEDS ORDERED: ONDA4TAB7 PO (01:14)
[2020-05-29 02:32] VITALS: BP 123/78
== END 2020-05-29 02:07 | disposition home or self-care (01) ==
LOC: ER 20:00
DX: R10.13 Epigastric pain (principal); R41.82 Altered mental status, unspecified; R11.2 Nausea with vomiting, unspecified; E78.00 Pure hypercholesterolemia, unspecified; I10 Essential (primary) hypertension; E03.9 Hypothyroidism, unspecified; F20.9 Schizophrenia, unspecified; Z88.8 Allergy status to other drugs, medicaments and biological substances
CPT/HCPCS: 36415; 74176; 80053; 81001; 82140; 82550; 83735; 84484; 85007; 85025; 93005; 96361; 96374; 99285; J2405; J7040

== ENCOUNTER 2020-06-02 12:38 | Inpatient (IN) | payer MEDICAID ==
[~2020-06-02] VITALS: Ht 152.4 cm; Wt 90.7 kg
[~2020-06-02 12:38] MED LIST changes: +ONDA4TAB7 PO
[2020-06-02 13:13] LABS: BILIRUBIN,URINE SMALL (NEG); CLARITY,URINE CLEAR; COLOR,URINE AMBER; NITRITE,URINE NEGATIVE (NEG); PH,URINE 5.5 (<5.0-8.0); PROTEIN,URINE >=300 mg/dL (NEG-TRACE)
[2020-06-02 13:22] LABS: BARBITURATES NEG (NEG); BENZODIAZEPINES NEG (NEG); CANNABINOIDS NEG (NEG); COCAINE NEG (NEG); METHADONE NEG (NEG); OPIATES NEG (NEG); PHENCYCLIDINE NEG (NEG)
[2020-06-02 13:23] LABS: AMPHETAMINE/METHAMPHETAMINE NEG (NEG)
[2020-06-02 13:28] LABS: HYALINE CASTS, URINE FEW /HPF
[2020-06-02 13:29] LABS: BACTERIA,URINE MODERATE /HPF (0-FEW)
--- NOTE | 2020-06-02 13:47 | RAD ---
EXAM: Pelvis and left hip, 3 views. HISTORY: Found down. COMPARISON: 11/09/2015. FINDINGS: A frontal view the pelvis and 2 views of the left hip are obtained. No displaced fracture i s seen. There are surgical clips within the pelvis and left lower quadrant. There are degenerative ch anges involving the visualized lower lumbar spine. IMPRESSION: No acute osseous finding. Electronically signed by: Beulah Ospina MD (06/02/2020 1:45 PM) [id number]
--- NOTE | 2020-06-02 13:53 | RAD ---
EXAM: Head and cervical spine CT without contrast. HISTORY: Fall. TECHNIQUE: Computed tomographic images of the head and cervical spine were obtained without contrast. *One or more of the following individualized dose reduction techniques were utilized for this examina tion: 1. Automated exposure control. 2. Adjustment of the mA and/or kV according to patient size. 3. Use of iterative reconstruction technique. COMPARISON: 11/08/2019. FINDINGS: Head: There is no acute hemorrhage. There is no mass effect or midline shift. There is no hydrocephal us. There are cerebral white matter changes due to chronic small vessel disease. There is cerebral an d cerebellar volume loss. There is no calvarial lesion. The orbits and visualized paranasal sinuses a re unremarkable. The mastoid air cells are clear. Cervical spine: There is mild cervical kyphosis. There is mild multilevel endplate remodeling and fac et arthropathy. No displaced fracture is seen. There is no significant foraminal or central canal qamar nosis. The lung apices are unremarkable. IMPRESSION: 1. No acute intracranial finding or evidence of acute cervical spine trauma. 2. Bilateral cerebral white matter changes, likely due to chronic small vessel disease. 3. Mild multilevel degenerative change involving the cervical spine. Electronically signed by: Beulah Ospina MD (06/02/2020 1:50 PM) [id number]
[2020-06-02 15:55] LABS: BASO % 0 % (0-3); EOS % 0 % (0-3); HEMATOCRIT 25.7 % (36.0-47.0); HEMOGLOBIN 8.1 g/dL (12.0-15.5); LYMPH # 0.5 x10^3/uL (1.0-4.8); LYMPH % 14 % (24-48); MEAN CORPUSCULAR HEMOGLOBIN 25 pg (25-35); MEAN CORPUSCULAR HGB CONC 32 g/dL (31-37); MEAN CORPUSCULAR VOLUME 81 fL (79-100); MONO # 0.6 x10^3/uL (0.0-1.1); MONO % 16 % (0-9); NEUT # 2.7 x10^3/uL (1.8-7.7); NEUT % 70 % (31-73); PLATELET COUNT 139 x10^3/uL (140-400); RED BLOOD COUNT 3.18 x10^6/uL (3.50-5.40); RED CELL DISTRIBUTION WIDTH 18.6 % (11.5-14.5); WHITE BLOOD COUNT 3.8 x10^3/uL (4.0-11.0)
[2020-06-02 16:24] LABS: CREATININE 2.6 mg/dL (0.6-1.0); GFR 22.7; POTASSIUM 3.5 mmol/L (3.5-5.1)
[2020-06-02 16:29] LABS: ALBUMIN 1.6 g/dL (3.4-5.0); ALBUMIN/GLOBULIN RATIO 0.3 (1.0-1.7); MAGNESIUM 2.1 mg/dL (1.8-2.4); TOTAL BILIRUBIN 0.2 mg/dL (0.2-1.0); TOTAL PROTEIN 6.5 g/dL (6.4-8.2)
[2020-06-02 17:25] LABS: PROTHROMBIN TIME PATIENT 17.2 SEC (11.7-14.0)
--- NOTE | 2020-06-02 18:46 | RAD ---
EXAMINATION: XR FOOT_LEFT 3 VIEWS, XR KNEE _3 VIEWS_LT, XR LT TIBIA + FIBULA CLINICAL HISTORY: Left lower extremity pain following fall TECHNIQUE: XR FOOT_LEFT 3 VIEWS, XR KNEE _3 VIEWS_LT, XR LT TIBIA + FIBULA Number of Images/Views: 3 knee, 2 tibia/fibula, 3 foot COMPARISON: None FINDINGS: LEFT KNEE: Moderate to severe medial and mild to moderate lateral compartment narrowing. Prominent tr icompartmental marginal osteophytes. No acute fracture. No joint effusion. LEFT TIBIA/FIBULA: No acute fracture. Limited evaluation of the ankle unremarkable. No focal soft tis kostas swelling. LEFT FOOT: No definite acute fracture. Somewhat atypical appearance of the proximal phalangeal bases is felt to be projectional secondary to patient positioning. Mild calcaneocuboid degenerative changes . Joint spaces and alignment otherwise relatively well-maintained. Small plantar calcaneal enthesophy te. Soft tissue prominence in the forefoot. IMPRESSION: No definite acute osseous abnormality involving the left knee, tibia, fibula, or foot. Tricompartmental degenerative changes left knee, moderate to severe in the medial compartment. Electronically signed by: Rafiq Fitzgerald DO (06/02/2020 6:44 PM) [facility]
--- NOTE | 2020-06-02 18:57 | PHYS DOC ---
Past Medical History Past Medical History: Anxiety, Cancer, Constipation, Depression, High Cholesterol, Hypertension, Hypothyroid, Seizure, Schizophrenia, UTI, Other Additional Past Medical Histor: MULTIPLE PERSONALITY DISORDER, INTELLECTUAL DI SABILITIES Past Surgical History: Other Additional Past Surgical Histo: UNKNOWN SURGERY Smoking Status: Never Smoker Alcohol Use: None Drug Use: None General Adult EDM: Chief Complaint: MECHANICAL FALL HPI: HPI: Patient is a 60 year old female with history of developmental delay, hypertension, schizophrenia, high cholesterol, among other illnesses who presents today from a fdc. long-term staff reports patient had a syncope episode. She was found passed out on the floor in the bathroom. Jess gonzalez has confusion as her baseline. Very poor historian. She is getting her left lower extremity. Review of Systems: Review of Systems: Constitutional: Unable to assess due to mentation Eyes: Unable to assess due to mentation HENT: Unable to assess due to mentation Respiratory: Unable to assess due to mentation Cardiovascular: Unable to assess due to mentation GI: Unable to assess due to mentation : Unable to assess due to mentation Musculoskeletal: Unable to assess due to mentation Integument: Unable to assess due to mentation Neurologic: Reports syncope episode. Denies headache, focal weakness or sensory changes. [] Heart Score: Risk Factors: Risk Factors: DM, Current or recent (<one month) smoker, HTN, HLP, family history of CAD, obesity. Risk Scores: Score 0 - 3: 2.5% MACE over next 6 weeks - Discharge Home Score 4 - 6: 20.3% MACE over next 6 weeks - Admit for Clinical Observation Score 7 - 10: 72.7% MACE over next 6 weeks - Early Invasive Strategies Allergies: Allergies: Allergies Coded Allergies Type Severity Reaction Last Updated Verified haloperidol Allergy Intermediate UNKNOWN 11/09/15 Yes iron dextran complex Allergy Intermediate UNKNOWN 11/09/15 Yes Physical Exam: PE: Constitutional: Well developed, well nourished, no acute distress, non-toxic appearance. [] HENT: Normocephalic, atraumatic, bilateral external ears normal, oropharynx moist, no oral exudates, nose normal. [] Eyes: PERRLA, EOMI, conjunctiva normal, no discharge. [] Neck: Normal range of motion, no tenderness, supple, no stridor. [] Cardiovascular:Heart rate regular rhythm, no murmur [] Lungs & Thorax: Bilateral breath sounds clear to auscultation [] Abdomen: Bowel sounds normal, soft, no tenderness, no masses, no pulsatile masses. [] Skin: Warm, dry, no erythema, no rash. [] Back: No tenderness, no CVA tenderness. [] Extremities: No tenderness, no cyanosis, no clubbing, ROM intact, no edema. [] Neurologic: Alert and oriented X 1, normal motor function, normal sensory function, no focal deficits noted. [] Psychologic: Affect normal, judgement normal, mood normal. [] Current Patient Data: Labs: Laboratory Tests Test 06/02/20 13:06 06/02/20 15:40 Urine Collection Type U cath Urine Color Patrica Urine Clarity Clear Urine pH 5.5 (<5.0-8.0) Urine Specific [place] 1.020 (1.000-1.030) Urine Protein >=300 mg/dL (NEG-TRACE) Urine Glucose (UA) Negative mg/dL (NEG) Urine Ketones (Stick) Trace mg/dL (NEG) Urine Blood Negative (NEG) Urine Nitrite Negative (NEG) Urine Bilirubin Small (NEG) Urine Urobilinogen Dipstick 2.0 mg/dL (0.2 mg/dL) Urine Leukocyte Esterase Small (NEG) Urine RBC 1-2 /HPF (0-2) Urine WBC 1-4 /HPF (0-4) Urine Squamous Epithelial Cells Few /LPF Urine Bacteria Moderate /HPF (0-FEW) Urine Hyaline Casts Few /HPF Urine Mucus Slight /LPF Urine Opiates Screen Neg (NEG) Urine Methadone Screen Neg (NEG) Urine Barbiturates Neg (NEG) Urine Phencyclidine Screen Neg (NEG) Urine Amphetamine/Methamphetamine Neg (NEG) Urine Benzodiazepines Screen Neg (NEG) Urine Cocaine Screen Neg (NEG) Urine Cannabinoids Screen Neg (NEG) Urine Ethyl Alcohol Neg (NEG) White Blood Count 3.8 x10^3/uL (4.0-11.0) L Red Blood Count 3.18 x10^6/uL (3.50-5.40) L Hemoglobin 8.1 g/dL (12.0-15.5) L Hematocrit 25.7 % (36.0-47.0) L Mean Corpuscular Volume 81 fL (79-100) Mean Corpuscular Hemoglobin 25 pg (25-35) Mean Corpuscular Hemoglobin Concent 32 g/dL (31-37) Red Cell Distribution Width 18.6 % (11.5-14.5) H Platelet Count 139 x10^3/uL (140-400) L Neutrophils (%) (Auto) 70 % (31-73) Lymphocytes (%) (Auto) 14 % (24-48) L Monocytes (%) (Auto) 16 % (0-9) H Eosinophils (%) (Auto) 0 % (0-3) Basophils (%) (Auto) 0 % (0-3) Neutrophils # (Auto) 2.7 x10^3/uL (1.8-7.7) Lymphocytes # (Auto) 0.5 x10^3/uL (1.0-4.8) L Monocytes # (Auto) 0.6 x10^3/uL (0.0-1.1) Eosinophils # (Auto) 0.0 x10^3/uL (0.0-0.7) Basophils # (Auto) 0.0 x10^3/uL (0.0-0.2) Prothrombin Time 17.2 SEC (11.7-14.0) H Prothrombin Time INR 1.4 (0.8-1.1) H Sodium Level 144 mmol/L (136-145) Potassium Level 3.5 mmol/L (3.5-5.1) Chloride Level 109 mmol/L (98-107) H Carbon Dioxide Level 24 mmol/L (21-32) Anion Gap 11 (6-14) Blood Urea Nitrogen 25 mg/dL (7-20) H Creatinine 2.6 mg/dL (0.6-1.0) H Estimated GFR (Cockcroft-Gault) 22.7 BUN/Creatinine Ratio 10 (6-20) Glucose Level 92 mg/dL (70-99) Calcium Level 8.0 mg/dL (8.5-10.1) L Magnesium Level 2.1 mg/dL (1.8-2.4) Total Bilirubin 0.2 mg/dL (0.2-1.0) Aspartate Amino Transferase (AST) 17 U/L (15-37) Alanine Aminotransferase (ALT) 12 U/L (14-59) L Alkaline Phosphatase 58 U/L (46-116) Troponin I Quantitative < 0.017 ng/mL (0.000-0.055) YD-Szn-H-Type Natriuretic Peptide 3371 pg/mL (0-124) H Total Protein 6.5 g/dL (6.4-8.2) Albumin 1.6 g/dL (3.4-5.0) L Albumin/Globulin Ratio 0.3 (1.0-1.7) L Thyroid Stimulating Hormone (TSH) 2.187 uIU/mL (0.358-3.74) Laboratory Tests 06/02/20 15:40 Laboratory Tests 06/02/20 15:40 Vital Signs: Vital Signs Date Time Temp Pulse Resp B/P (MAP) Pulse Ox O2 Delivery O2 Flow Rate FiO2 06/02/20 18:12 100 18 95 06/02/20 13:00 98.7 100/55 (70) Room Air 98.7 EKG: EKG: [] Radiology/Procedures: Radiology/Procedures: []PROCEDURE: CT HEAD AND CERVICAL SPINE WO EXAM: Head and cervical spine CT without contrast. HISTORY: Fall. TECHNIQUE: Computed tomographic images of the head and cervical spine were obtained without contrast. *One or more of the following individualized dose reduction techniques were utilized for this examination: 1. Automated exposure control. 2. Adjustment of the mA and/or kV according to patient size. 3. Use of iterative reconstruction technique. COMPARISON: 11/08/2019. FINDINGS: Head: There is no acute hemorrhage. There is no mass effect or midline shift. There is no hydrocephalus. There are cerebral white matter changes due to chronic small vessel disease. There is cerebral and cerebellar volume loss. There is no calvarial lesion. The orbits and visualized paranasal sinuses are unremarkable. The mastoid air cells are clear. Cervical spine: There is mild cervical kyphosis. There is mild multilevel endplate remodeling and facet arthropathy. No displaced fracture is seen. There is no significant foraminal or central canal stenosis. The lung apices are unremarkable. IMPRESSION: 1. No acute intracranial finding or evidence of acute cervical spine trauma. 2. Bilateral cerebral white matter changes, likely due to chronic small vessel disease. 3. Mild multilevel degenerative change involving the cervical spine. Electronically signed by: Beulah Delgado MD (06/02/2020 1:50 PM) [id number] DICTATED and SIGNED BY: BEULAH DELGADO MD DATE: 06/02/20 [id number] PROCEDURE: KNEE LEFT 3V EXAMINATION: XR FOOT_LEFT 3 VIEWS, XR KNEE _3 VIEWS_LT, XR LT TIBIA + FIBULA CLINICAL HISTORY: Left lower extremity pain following fall TECHNIQUE: XR FOOT_LEFT 3 VIEWS, XR KNEE _3 VIEWS_LT, XR LT TIBIA + FIBULA Number of Images/Views: 3 knee, 2 tibia/fibula, 3 foot COMPARISON: None FINDINGS: LEFT KNEE: Moderate to severe medial and mild to moderate lateral compartment narrowing. Prominent tricompartmental marginal osteophytes. No acute fracture. No joint effusion. LEFT TIBIA/FIBULA: No acute fracture. Limited evaluation of the ankle unremarkable. No focal soft tissue swelling. LEFT FOOT: No definite acute fracture. Somewhat atypical appearance of the proximal phalangeal bases is felt to be projectional secondary to patient positioning. Mild calcaneocuboid degenerative changes. Joint spaces and alignment otherwise relatively well-maintained. Small plantar calcaneal enthesophyte. Soft tissue prominence in the forefoot. IMPRESSION: No definite acute osseous abnormality involving the left knee, tibia, fibula, or foot. Tricompartmental degenerative changes left knee, moderate to severe in the medial compartment. Electronically signed by: Rafiq Conklin DO (06/02/2020 6:44 PM) [facility] DICTATED and SIGNED BY: RAFIQ CONKLIN DO DATE: 06/02/20 [id number] 0 PROCEDURE: HIP LEFT 2V WITH PELVIS EXAM: Pelvis and left hip, 3 views. HISTORY: Found down. COMPARISON: 11/09/2015. FINDINGS: A frontal view the pelvis and 2 views of the left hip are obtained. No displaced fracture is seen. There are surgical clips within the pelvis and left lower quadrant. There are degenerative changes involving the visualized lower lumbar spine. IMPRESSION: No acute osseous finding. Electronically signed by: Beulah Delgado MD (06/02/2020 1:45 PM) [id number] DICTATED and SIGNED BY: BEULAH DELGADO MD DATE: 06/02/20 [id number] Course & Med Decision Making: Course & Med Decision Making Pertinent Labs and Imaging studies reviewed. (See chart for details) This is a 60-year-old female patient presenting to the ED to be evaluated today from a fdc. Per fdc report patient had a syncope episode, was found on the ground in her bathroom. Patient is confused at baseline. Very poor historian. Guarding her left lower extremity. CT of the head and cervical spine are negative for any acute findings. Left hip x-ray, left knee x-ray, left tib-fib x-ray and left foot x-rays are negative for any acute findings. Urine analysis noted for UTI, started on Zofran. Her labs are around her baseline. Spoke with Dr. Rubio who accepted patient for admission Doris Disclaimer: Doris Disclaimer: This electronic medical record was generated, in whole or in part, using a voice recognition dictation system. Departure Departure Impression: Primary Impression: Syncope Qualified Codes: R55 - Syncope and collapse Additional Impressions: Altered mental status Qualified Codes: R41.82 - Altered mental status, unspecified Fall Qualified Codes: W19.XXXA - Unspecified fall, initial encounter UTI (urinary tract infection) Qualified Codes: N39.0 - Urinary tract infection, site not specified Disposition: 09 ADMITTED INPT THIS HOSP Condition: STABLE Referrals: CRISTINE ZARAGOZA MD (PCP) SHANNON CASTAÑEDA APRN Jun 02, 2020 18:57
[2020-06-02] MEDS ORDERED: ACETAMINOPHEN 325 MG TABLET. PO PRN ×2 (19:00→19:45)
[2020-06-02] MEDS ORDERED: ONDANSETRON PF 4 MG/2 ML VIAL. IV PRN (19:00)
[2020-06-02] MEDS ORDERED: PIPERACILLIN/TAZOBACTAM 3.375 GM in IV NORMAL SALINE 50ML 50 ML IV ONE (19:00)
[2020-06-02] MEDS ORDERED: PIPERACILLIN/TAZOBACTAM 2.25 GM in IV NORMAL SALINE 50ML 50 ML IV ONE (19:15)
[2020-06-02] MEDS ORDERED: CEPHALEXIN 250 MG CAPSULE. PO ONE (19:30)
--- NOTE | 2020-06-02 19:36 | PDOC1 ---
History and Physical Date of Admission Date of Admission DATE: 06/02/20 TIME: 19:30 Identification/Chief Complaint Chief Complaint Syncope Source Source: Chart review History of Present Illness History of Present Illness Patient 60-year-old female half-way resident who presents for evaluation after being found down today. Patient had unwitnessed syncopal event in her bathroom at her half-way and was found on the floor after having a bowel movement. Patient is confused at baseline therefore very poor historian. Imaging obtained in the ER negative for any acute fractures. Will admit patient for further syncopal evaluation. Past Medical History Cardiovascular: HTN, Hyperlipidemia Pulmonary: No pertinent hx CENTRAL NERVOUS SYSTEM: Other GI: Constipation, GERD Heme/Onc: No pertinent hx Hepatobiliary: No pertinent hx Psych: Anxiety, Depression, Schizophrenia Rheumatologic: No pertinent hx Infectious disease: No pertinent hx Renal/: Chronic renal insuff, UTI Endocrine: Hypothyroidism Past Surgical History Past Surgical History: No pertinent history Family History Family History: Family History Unknown Social History Smoke: No ALCOHOL: none Drugs: None Current Problem List Problem List Problems Medical Problems: (1) Altered mental status Status: Acute (2) Fall Status: Acute (3) UTI (urinary tract infection) Status: Acute Current Medications Current Medications Current Medications Ondansetron HCl (Zofran) 4 mg PRN Q8HRS PRN IV NAUSEA/VOMITING; Start 06/02/20 at 19:00; Stop 06/03/20 at 18:59 Acetaminophen (Tylenol) 650 mg PRN Q4HRS PRN PO FEVER > 100.3'F; Start 06/02/20 at 19:00; Stop 06/03/20 at 18:59 Piperacillin Sod/ Tazobactam Sod 3.375 gm/Sodium Chloride 50 ml @ 100 mls/hr 1X ONCE IV ; Start 06/02/20 at 19:00; Stop 06/02/20 at 19:02; Status DC Piperacillin Sod/ Tazobactam Sod 2.25 gm/Sodium Chloride 50 ml @ 100 mls/hr 1X ONCE IV ; Start 06/02/20 at 19:15; Stop 06/02/20 at 19:16; Status DC Cephalexin HCl (Keflex) 500 mg 1X ONCE PO Last administered on 06/02/20at 19:21; Start 06/02/20 at 19:30; Stop 1/4/21 at 19:31 Active Scripts Active Zofran (Ondansetron Hcl) 4 Mg Tablet 1 Tab PO PRN Q6-8HRS Reported Combivent Respimat Inhal (Ipratropium/Albuterol Sulfate) 4 Gm Aer.w.adap 2 Inh IH QID Latuda (Lurasidone Hcl) 20 Mg Tablet 1 Tab PO DAILY 30 Days Zoloft (Sertraline Hcl) 25 Mg Tablet 1 Tab PO DAILY Nystatin 15 Gm Powder 1 Carmen TP PRN PRN 7 Days apply to affected area(s) Miralax (Polyethylene Glycol 3350) 17 Gm Powd.pack 1 Packet PO PRN Q24HRS PRN 2 Days dissolve in water Miralax (Polyethylene Glycol 3350) 17 Gm Powd.pack 1 Packet PO QMWF 2 Days dissolve in water Depakote Er (Divalproex Sodium) 500 Mg Tab.er.24h 3 Tab PO QHS Mylanta Maximum Strength Liq (Mag Hydrox/Aluminum Hyd/Simeth) 355 Ml Oral.susp 30 Ml PO PRN Q4HRS PRN Risperdal Consta (Risperidone Microspheres) 37.5 Mg/2 Ml Disp.syrin 50 Mg IM Q2WKS Topamax (Topiramate) 100 Mg Tablet 1 Tab PO BID Risperdal (Risperidone) 4 Mg Tablet 1 Tab PO BID Milk Of Magnesia (Magnesium Hydroxide) 400 Mg/5 Ml Oral.susp 30 Ml PO DAILY PRN Anti-Diarrhea (Loperamide Hcl) 2 Mg Tablet 2 Mg PO PRN Levothyroxine Sodium 75 Mcg Tablet 1 Tab PO DAILY Aspirin 81 Mg Tab.chew 1 Tab PO DAILY Tylenol (Acetaminophen) 325 Mg Tablet 2 Tab PO PRN Q6HRS Allergies Allergies: Coded Allergies: haloperidol (Verified Allergy, Intermediate, UNKNOWN, 11/09/15) iron dextran complex (Verified Allergy, Intermediate, UNKNOWN, 11/09/15) ROS Review of System Complete ROS unable to obtain due to clinical condition Physical Exam Physical Exam General: Alert, cooperative, no acute distress HEENT: PERRLA, EOMI Lungs: Clear to auscultation, Normal air movement Heart: RRR, no murmurs Cardiovascular: S1, S2 Abdomen: Normal bowel sounds, Soft, No tenderness Extremities: No clubbing, No cyanosis Skin: No rashes, No significant lesion Neuro: Normal speech, Normal tone, Sensation intact Psych/Mental Status: Confused, normal mood Vitals Vitals Vital Signs Date Time Temp Pulse Resp B/P (MAP) Pulse Ox O2 Delivery O2 Flow Rate FiO2 06/02/20 18:12 100 18 95 06/02/20 13:00 98.7 100/55 (70) Room Air 98.7 Labs Labs Laboratory Tests Test 06/02/20 13:06 06/02/20 15:40 Urine Collection Type U cath Urine Color Patrica Urine Clarity Clear Urine pH 5.5 (<5.0-8.0) Urine Specific [place] 1.020 (1.000-1.030) Urine Protein >=300 mg/dL (NEG-TRACE) Urine Glucose (UA) Negative mg/dL (NEG) Urine Ketones (Stick) Trace mg/dL (NEG) Urine Blood Negative (NEG) Urine Nitrite Negative (NEG) Urine Bilirubin Small (NEG) Urine Urobilinogen Dipstick 2.0 mg/dL (0.2 mg/dL) Urine Leukocyte Esterase Small (NEG) Urine RBC 1-2 /HPF (0-2) Urine WBC 1-4 /HPF (0-4) Urine Squamous Epithelial Cells Few /LPF Urine Bacteria Moderate /HPF (0-FEW) Urine Hyaline Casts Few /HPF Urine Mucus Slight /LPF Urine Opiates Screen Neg (NEG) Urine Methadone Screen Neg (NEG) Urine Barbiturates Neg (NEG) Urine Phencyclidine Screen Neg (NEG) Urine Amphetamine/Methamphetamine Neg (NEG) Urine Benzodiazepines Screen Neg (NEG) Urine Cocaine Screen Neg (NEG) Urine Cannabinoids Screen Neg (NEG) Urine Ethyl Alcohol Neg (NEG) White Blood Count 3.8 x10^3/uL (4.0-11.0) Red Blood Count 3.18 x10^6/uL (3.50-5.40) Hemoglobin 8.1 g/dL (12.0-15.5) Hematocrit 25.7 % (36.0-47.0) Mean Corpuscular Volume 81 fL (79-100) Mean Corpuscular Hemoglobin 25 pg (25-35) Mean Corpuscular Hemoglobin Concent 32 g/dL (31-37) Red Cell Distribution Width 18.6 % (11.5-14.5) Platelet Count 139 x10^3/uL (140-400) Neutrophils (%) (Auto) 70 % (31-73) Lymphocytes (%) (Auto) 14 % (24-48) Monocytes (%) (Auto) 16 % (0-9) Eosinophils (%) (Auto) 0 % (0-3) Basophils (%) (Auto) 0 % (0-3) Neutrophils # (Auto) 2.7 x10^3/uL (1.8-7.7) Lymphocytes # (Auto) 0.5 x10^3/uL (1.0-4.8) Monocytes # (Auto) 0.6 x10^3/uL (0.0-1.1) Eosinophils # (Auto) 0.0 x10^3/uL (0.0-0.7) Basophils # (Auto) 0.0 x10^3/uL (0.0-0.2) Prothrombin Time 17.2 SEC (11.7-14.0) Prothromb Time International Ratio 1.4 (0.8-1.1) Sodium Level 144 mmol/L (136-145) Potassium Level 3.5 mmol/L (3.5-5.1) Chloride Level 109 mmol/L (98-107) Carbon Dioxide Level 24 mmol/L (21-32) Anion Gap 11 (6-14) Blood Urea Nitrogen 25 mg/dL (7-20) Creatinine 2.6 mg/dL (0.6-1.0) Estimated GFR (Cockcroft-Gault) 22.7 BUN/Creatinine Ratio 10 (6-20) Glucose Level 92 mg/dL (70-99) Calcium Level 8.0 mg/dL (8.5-10.1) Magnesium Level 2.1 mg/dL (1.8-2.4) Total Bilirubin 0.2 mg/dL (0.2-1.0) Aspartate Amino Transf (AST/SGOT) 17 U/L (15-37) Alanine Aminotransferase (ALT/SGPT) 12 U/L (14-59) Alkaline Phosphatase 58 U/L (46-116) Troponin I Quantitative < 0.017 ng/mL (0.000-0.055) MA-Wvk-[id number]-Type Natriuretic Peptide 3371 pg/mL (0-124) Total Protein 6.5 g/dL (6.4-8.2) Albumin 1.6 g/dL (3.4-5.0) Albumin/Globulin Ratio 0.3 (1.0-1.7) Thyroid Stimulating Hormone (TSH) 2.187 uIU/mL (0.358-3.74) Laboratory Tests Test 06/02/20 13:06 06/02/20 15:40 Urine Collection Type U cath Urine Color Patrica Urine Clarity Clear Urine pH 5.5 (<5.0-8.0) Urine Specific [place] 1.020 (1.000-1.030) Urine Protein >=300 mg/dL (NEG-TRACE) Urine Glucose (UA) Negative mg/dL (NEG) Urine Ketones (Stick) Trace mg/dL (NEG) Urine Blood Negative (NEG) Urine Nitrite Negative (NEG) Urine Bilirubin Small (NEG) Urine Urobilinogen Dipstick 2.0 mg/dL (0.2 mg/dL) Urine Leukocyte Esterase Small (NEG) Urine RBC 1-2 /HPF (0-2) Urine WBC 1-4 /HPF (0-4) Urine Squamous Epithelial Cells Few /LPF Urine Bacteria Moderate /HPF (0-FEW) Urine Hyaline Casts Few /HPF Urine Mucus Slight /LPF Urine Opiates Screen Neg (NEG) Urine Methadone Screen Neg (NEG) Urine Barbiturates Neg (NEG) Urine Phencyclidine Screen Neg (NEG) Urine Amphetamine/Methamphetamine Neg (NEG) Urine Benzodiazepines Screen Neg (NEG) Urine Cocaine Screen Neg (NEG) Urine Cannabinoids Screen Neg (NEG) Urine Ethyl Alcohol Neg (NEG) White Blood Count 3.8 x10^3/uL (4.0-11.0) Red Blood Count 3.18 x10^6/uL (3.50-5.40) Hemoglobin 8.1 g/dL (12.0-15.5) Hematocrit 25.7 % (36.0-47.0) Mean Corpuscular Volume 81 fL (79-100) Mean Corpuscular Hemoglobin 25 pg (25-35) Mean Corpuscular Hemoglobin Concent 32 g/dL (31-37) Red Cell Distribution Width 18.6 % (11.5-14.5) Platelet Count 139 x10^3/uL (140-400) Neutrophils (%) (Auto) 70 % (31-73) Lymphocytes (%) (Auto) 14 % (24-48) Monocytes (%) (Auto) 16 % (0-9) Eosinophils (%) (Auto) 0 % (0-3) Basophils (%) (Auto) 0 % (0-3) Neutrophils # (Auto) 2.7 x10^3/uL (1.8-7.7) Lymphocytes # (Auto) 0.5 x10^3/uL (1.0-4.8) Monocytes # (Auto) 0.6 x10^3/uL (0.0-1.1) Eosinophils # (Auto) 0.0 x10^3/uL (0.0-0.7) Basophils # (Auto) 0.0 x10^3/uL (0.0-0.2) Prothrombin Time 17.2 SEC (11.7-14.0) Prothromb Time International Ratio 1.4 (0.8-1.1) Sodium Level 144 mmol/L (136-145) Potassium Level 3.5 mmol/L (3.5-5.1) Chloride Level 109 mmol/L (98-107) Carbon Dioxide Level 24 mmol/L (21-32) Anion Gap 11 (6-14) Blood Urea Nitrogen 25 mg/dL (7-20) Creatinine 2.6 mg/dL (0.6-1.0) Estimated GFR (Cockcroft-Gault) 22.7 BUN/Creatinine Ratio 10 (6-20) Glucose Level 92 mg/dL (70-99) Calcium Level 8.0 mg/dL (8.5-10.1) Magnesium Level 2.1 mg/dL (1.8-2.4) Total Bilirubin 0.2 mg/dL (0.2-1.0) Aspartate Amino Transf (AST/SGOT) 17 U/L (15-37) Alanine Aminotransferase (ALT/SGPT) 12 U/L (14-59) Alkaline Phosphatase 58 U/L (46-116) Troponin I Quantitative < 0.017 ng/mL (0.000-0.055) IS-Jqe-[id number]-Type Natriuretic Peptide 3371 pg/mL (0-124) Total Protein 6.5 g/dL (6.4-8.2) Albumin 1.6 g/dL (3.4-5.0) Albumin/Globulin Ratio 0.3 (1.0-1.7) Thyroid Stimulating Hormone (TSH) 2.187 uIU/mL (0.358-3.74) Images Images EXAM: Head and cervical spine CT without contrast. HISTORY: Fall. TECHNIQUE: Computed tomographic images of the head and cervical spine were obtained without contrast. *One or more of the following individualized dose reduction techniques were utilized for this examination: 1. Automated exposure control. 2. Adjustment of the mA and/or kV according to patient size. 3. Use of iterative reconstruction technique. COMPARISON: 11/08/2019. FINDINGS: Head: There is no acute hemorrhage. There is no mass effect or midline shift. There is no hydrocephalus. There are cerebral white matter changes due to chronic small vessel disease. There is cerebral and cerebellar volume loss. There is no calvarial lesion. The orbits and visualized paranasal sinuses are unremarkable. The mastoid air cells are clear. Cervical spine: There is mild cervical kyphosis. There is mild multilevel endplate remodeling and facet arthropathy. No displaced fracture is seen. There is no significant foraminal or central canal stenosis. The lung apices are unremarkable. IMPRESSION: 1. No acute intracranial finding or evidence of acute cervical spine trauma. 2. Bilateral cerebral white matter changes, likely due to chronic small vessel disease. 3. Mild multilevel degenerative change involving the cervical spine. Electronically signed by: Beulah Delgado MD (06/02/2020 1:50 PM) [id number] DICTATED and SIGNED BY: BEULAH DELGADO MD DATE: 06/02/20 [id number] PROCEDURE: KNEE LEFT 3V EXAMINATION: XR FOOT_LEFT 3 VIEWS, XR KNEE _3 VIEWS_LT, XR LT TIBIA + FIBULA CLINICAL HISTORY: Left lower extremity pain following fall TECHNIQUE: XR FOOT_LEFT 3 VIEWS, XR KNEE _3 VIEWS_LT, XR LT TIBIA + FIBULA Number of Images/Views: 3 knee, 2 tibia/fibula, 3 foot COMPARISON: None FINDINGS: LEFT KNEE: Moderate to severe medial and mild to moderate lateral compartment narrowing. Prominent tricompartmental marginal osteophytes. No acute fracture. No joint effusion. LEFT TIBIA/FIBULA: No acute fracture. Limited evaluation of the ankle unremarkable. No focal soft tissue swelling. LEFT FOOT: No definite acute fracture. Somewhat atypical appearance of the proximal phalangeal bases is felt to be projectional secondary to patient positioning. Mild calcaneocuboid degenerative changes. Joint spaces and alignment otherwise relatively well-maintained. Small plantar calcaneal enthesophyte. Soft tissue prominence in the forefoot. IMPRESSION: No definite acute osseous abnormality involving the left knee, tibia, fibula, or foot. Tricompartmental degenerative changes left knee, moderate to severe in the medi al compartment. Electronically signed by: Rafiq Conklin DO (06/02/2020 6:44 PM) [facility] DICTATED and SIGNED BY: RAFIQ CONKLIN DO DATE: 06/02/20 [id number] 0 PROCEDURE: HIP LEFT 2V WITH PELVIS EXAM: Pelvis and left hip, 3 views. HISTORY: Found down. COMPARISON: 11/09/2015. FINDINGS: A frontal view the pelvis and 2 views of the left hip are obtained. No displaced fracture is seen. There are surgical clips within the pelvis and left lower quadrant. There are degenerative changes involving the visualized lower lumbar spine. IMPRESSION: No acute osseous finding. VTE Prophylaxis Ordered VTE Prophylaxis Devices: No VTE Pharmacological Prophylaxi: Yes Assessment/Plan Assessment/Plan Syncope AURA Vasomotor nephropathy Dehydration Severe malnutrition Plan: We will admit patient for syncope work-up Echocardiogram, orthostatic vitals pending; will consult cardiology if indicated on work-up Will provide IV hydration I do suspect the patient likely fell off the toilet and was sent to the ER for further work-up Resume home medications FEN - Cardiac diet PPX - Lovenox FULL CODE Dispo - inpatient for above Justifications for Admission Other Justification Abdominal ascites, complex cyst with abnormal fluid collection KRISS NOVA MD Jun 02, 2020 19:36
[2020-06-02] MEDS ORDERED: HYDROcodone/APAP 5/325MG 1 TAB TABLET PO PRN ×2 (19:45)
[2020-06-02] MEDS ORDERED: ONDANSETRON PF 4 MG/2 ML VIAL. IVP PRN (19:45)
[2020-06-02] MEDS ORDERED: IV NORMAL SALINE 1000ML BAG 1,000 ML IV ONE (19:45)
[2020-06-02] MEDS ORDERED: MAG HYDROX/ALUMINUM HYD/SIMETH 30 ML ORAL.SUSP PO PRN (19:45)
[2020-06-02] MEDS ORDERED: BISACODYL 10 MG SUPP.RECT. PR PRN (19:45)
[2020-06-02] MEDS ORDERED: CALCIUM CARBONATE 500 MG TAB.CHEW PO PRN (19:45)
[2020-06-02] MEDS ORDERED: MAGNESIUM HYDROXIDE 2,400 MG/30 ML ORAL.SUSP. PO PRN (19:45)
[2020-06-02] MEDS ORDERED: ACET325T21 PO (21:45)
[2020-06-02 22:00] VITALS: BP 151/73
[2020-06-02] MEDS: ENOXAPARIN 30 MG/0.3 ML SYRINGE. SQ SCH (22:30)
[2020-06-02] MEDS: DIVALPROEX EXTENDED RELEASE 500 MG TAB.ER.24H. PO SCH (22:55)
[2020-06-02] MEDS: risperiDONE 1 MG TABLET. PO SCH (22:57)
[2020-06-02] MEDS ORDERED: ALBUTEROL SULFATE 2.5 MG/3 ML NEBU. NEB PRN (23:00)
--- NOTE | 2020-06-02 23:00 | NUR ---
ADMIT NOTE The patient, AVI VILLEGAS, 60 y/o, F admitted by KRISS NOVA MD, was given written information regarding hospital policies, unit procedures and contact persons. Patient orientated to room, plan of care discussed, and admit packet reviewed. Patient's allergies/home medications verified and wound admit photo taken. Patient now in bed, bed in lowest/locked position, and call light within reach; no other needs voiced at this time.
[2020-06-03 02:40] VITALS: BP 100/58
[2020-06-03 07:00] VITALS: BP 150/65
[2020-06-03] MEDS: IPRATRPIUM/ALBUTEROL 0.5/2.5MG 3 ML NEBU. NEB SCH ×4 (08:00→20:47)
[2020-06-03] MEDS: risperiDONE 1 MG TABLET. PO SCH ×2 (08:21→21:28)
[2020-06-03 09:22] LABS: BASO % 0 % (0-3); EOS % 0 % (0-3); HEMOGLOBIN 7.4 g/dL (12.0-15.5); LYMPH # 0.7 x10^3/uL (1.0-4.8); LYMPH % 29 % (24-48); MEAN CORPUSCULAR HEMOGLOBIN 25 pg (25-35); MEAN CORPUSCULAR HGB CONC 31 g/dL (31-37); MEAN CORPUSCULAR VOLUME 80 fL (79-100); MONO # 0.4 x10^3/uL (0.0-1.1); MONO % 17 % (0-9); NEUT # 1.3 x10^3/uL (1.8-7.7); NEUT % 54 % (31-73); PLATELET COUNT 126 x10^3/uL (140-400); RED BLOOD COUNT 2.99 x10^6/uL (3.50-5.40); WHITE BLOOD COUNT 2.4 x10^3/uL (4.0-11.0)
[2020-06-03 09:33] LABS: ALBUMIN 1.2 g/dL (3.4-5.0); ALBUMIN/GLOBULIN RATIO 0.3 (1.0-1.7); CREATININE 2.5 mg/dL (0.6-1.0); TOTAL PROTEIN 5.8 g/dL (6.4-8.2)
[2020-06-03 09:34] LABS: GFR 23.8; POTASSIUM 3.7 mmol/L (3.5-5.1); TOTAL BILIRUBIN 0.2 mg/dL (0.2-1.0)
--- NOTE | 2020-06-03 10:17 | NUR ---
SW following. Discussed with RN. 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 Pt will need a COVID test to return to the facility. SW will continue to follow.
[2020-06-03 11:00] VITALS: BP 127/68
[2020-06-03] MEDS: ASCORBIC ACID 500 MG TABLET PO SCH (11:21)
--- NOTE | 2020-06-03 11:46 | EKG ---
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
[2020-06-03] MEDS ORDERED: PERFLUTREN PROTEIN-A MICROSPHR 0.22 MG/ML 3 ML VIAL. IV ONE ×2 (13:51→14:00)
[2020-06-03 15:00] VITALS: BP 133/69
--- NOTE | 2020-06-03 16:03 | NUR ---
Wound/Ostomy Care Wound Type/Assessment: Pt seen per wound care consult for wound to right buttock. Wound is now resolved. There are no open wounds. Treatment Recommendations/Plan: Calazime cream for protection Education provided: Pt educated on calazime cream and turning with wedge. Offloading surface/device: wedge for turning. Recommended Referrals/Tests: N/A Discharge Recommendations for dressings: There are no open wounds at this time. Patient incontinent with urine, pt cleansed and changed. Pt repositioned to left side using wedge. Wound care will sign off at this time. Please re consult regarding any changes per wound care. Bed lowered and call light in reach, RT at bedside for Tx.
--- NOTE | 2020-06-03 16:54 | CARD ---
MR#: [id number] Date of Study: 06/03/2020 Ordering Physician: KRISS NOVA, Referring Physician: KRISS NOVA, Tech: Cari Engel RDCS APPROVED REPORT EXAM: Two-dimensional and M-mode echocardiogram with Doppler and color Doppler. Other Information Quality : Good INDICATION Syncope 2D DIMENSIONS RVDd1.5 (2.9-3.5cm)Left Atrium(2D)2.4 (1.6-4.0cm) IVSd1.3 (0.7-1.1cm)Aortic Root(2D)2.4 (2.0-3.7cm) LVDd4.0 (3.9-5.9cm)LVOT Diameter1.8 (1.8-2.4cm) PWd1.2 (0.7-1.1cm)LVDs1.7 (2.5-4.0cm) FS (%) 30.0 %SV63.4 ml LVEF(%)60.0 (>50%) Aortic Valve AoV Peak Kaden.176.4cm/sAoV VTI24.4cm AO Peak GR.12.4mmHgLVOT VTI 25.44cm AO Mean GR.8mmHgAVA (VTI)2.70cm2 AI P 1/2 Oazu689ol Mitral Valve MV E Dxzfxhxh63.3cm/sMV DECEL [id number] MV A Omeoghfh50.7cm/sE/A Ratio0.7 TDI Lateral E' P. V4.83cm/sMedial E' P. V6.95cm/s E/Lateral E'11.9E/Medial E'8.2 Tricuspid Valve TR P. Londmrzw467sb/sRAP JLXJRBQP8miEg TR Peak Gr.89ibExZRAK30ksJg Pulmonary Vein S1 Jpjvhgok56.6cm/sS2 Jlqmvbhc02.65cm/s D2 Kjudzebl25.6cm/s LEFT VENTRICLE The left ventricle is normal size. There is mild concentric left ventricular hypertrophy. The left ve ntricular systolic function is normal and the ejection fraction is within normal range. The Ejection Fraction is 60-65%. There is normal LV segmental wall motion. Transmitral Doppler flow pattern is Gra de I-abnormal relaxation pattern. RIGHT VENTRICLE The right ventricle cavity is small. The right ventricular systolic function is normal. ATRIA The left atrium size is normal. The right atrium size is normal. The interatrial septum is intact wit h no evidence for an atrial septal defect or patent foramen ovale as noted on 2-D or Doppler imaging. AORTIC VALVE The aortic valve is calcified but opens well. Doppler and Color Flow revealed no significant aortic r egurgitation. There is no significant aortic valvular stenosis. MITRAL VALVE The mitral valve is calcified but opens well. Mitral annular calcification is mild. There is no evide nce of mitral valve prolapse. There is no mitral valve stenosis. Doppler and Color Flow revealed no m itral valve regurgitation noted. TRICUSPID VALVE The tricuspid valve is normal in structure and function. Doppler and Color Flow revealed trace tricus pid regurgitation. The PA pressure was estimated at 25 mmHg. There is no tricuspid valve stenosis. PULMONIC VALVE The pulmonic valve is not well visualized. Doppler and Color Flow revealed no pulmonic valvular regur gitation. There is no pulmonic valvular stenosis. GREAT VESSELS The aortic root is normal in size. The ascending aorta is not well seen. The IVC is normal in size an d collapses >50% with inspiration. PERICARDIAL EFFUSION There is a trace circumferential pericardial effusion with no hemodynamic significance. Critical Notification Critical Value: No <Conclusion> The left ventricle is normal size. The left ventricular systolic function is normal and the ejection fraction is within normal range. The Ejection Fraction is 60-65%. There is mild concentric left ventricular hypertrophy. Doppler and Color Flow revealed no significant aortic regurgitation. There is no significant aortic valvular stenosis. Doppler and Color Flow revealed no mitral valve regurgitation noted. Doppler and Color Flow revealed trace tricuspid regurgitation. The PA pressure was estimated at 25 mmHg. Signed by : Fletcher Macias MD Electronically Approved : 06/03/2020 16:54:02
--- NOTE | 2020-06-03 17:00 | PDOC ---
PROGRESS NOTES Date of Service: DATE: 06/03/20 TIME: 16:56 Chief Complaint Chief Complaint Assessment/Plan Syncope AURA on chronic kidney disease which seems to be at baseline stage IIIb at least Leukopenia which is chronic as well Normocytic anemia of chronic inflammation most likely patient does not give history of active bleeding no hematemesis no black tarry stools have been reported we will send guaiac for completion Thrombocytopenia with no signs of active bleeding Vasomotor nephropathy Dehydration Severe malnutrition. Bedridden status as per patient Plan: Etiology of her syncopal episode seems to be vasovagal we will continue with work-up ordered initially Echocardiogram pending Will provide IV hydration Resume home medications FEN - Cardiac diet PPX - Lovenox FULL CODE Dispo - inpatient for above History of Present Illness History of Present Illness History of Present Illness Patient 60-year-old female intermediate resident who presents for evaluation after being found down today. Patient had unwitnessed syncopal event in her bathroom at her intermediate and was found on the floor after having a bowel movement. Patient is confused at baseline therefore very poor historian. Imaging obtained in the ER negative for any acute fractures. Will admit patient for further syncopal evaluation. 06/03/2020 Patient seems to be at baseline, she is bedridden and has been so for several years. We will request a consultation with physical therapy, work-up still in progress reassurance has been provided to the patient and all of her concerns were addressed to the best of my abilities no acute events reported overnight discussed with RN Vitals Vitals Vital Signs Date Time Temp Pulse Resp B/P (MAP) Pulse Ox O2 Delivery O2 Flow Rate FiO2 06/03/20 15:39 Room Air 06/03/20 15:00 98.4 78 16 133/69 (90) 98 98.4 Physical Exam General: Alert, Oriented X3, Cooperative, No acute distress Heart: Regular rate, Normal S1, Normal S2 Lungs: Clear, Wheezing Abdomen: Normal bowel sounds, Soft Extremities: No clubbing, No cyanosis, Other (Atrophy of the lower extremities 2+ edema) Skin: No rashes, No breakdown, No significant lesion Labs LABS Laboratory Tests Test 06/02/20 19:30 06/03/20 08:12 Troponin I Quantitative < 0.017 ng/mL (0.000-0.055) White Blood Count 2.4 x10^3/uL (4.0-11.0) Red Blood Count 2.99 x10^6/uL (3.50-5.40) Hemoglobin 7.4 g/dL (12.0-15.5) Hematocrit 24.0 % (36.0-47.0) Mean Corpuscular Volume 80 fL (79-100) Mean Corpuscular Hemoglobin 25 pg (25-35) Mean Corpuscular Hemoglobin Concent 31 g/dL (31-37) Red Cell Distribution Width 18.0 % (11.5-14.5) Platelet Count 126 x10^3/uL (140-400) Neutrophils (%) (Auto) 54 % (31-73) Lymphocytes (%) (Auto) 29 % (24-48) Monocytes (%) (Auto) 17 % (0-9) Eosinophils (%) (Auto) 0 % (0-3) Basophils (%) (Auto) 0 % (0-3) Neutrophils # (Auto) 1.3 x10^3/uL (1.8-7.7) Lymphocytes # (Auto) 0.7 x10^3/uL (1.0-4.8) Monocytes # (Auto) 0.4 x10^3/uL (0.0-1.1) Eosinophils # (Auto) 0.0 x10^3/uL (0.0-0.7) Basophils # (Auto) 0.0 x10^3/uL (0.0-0.2) Sodium Level 142 mmol/L (136-145) Potassium Level 3.7 mmol/L (3.5-5.1) Chloride Level 109 mmol/L (98-107) Carbon Dioxide Level 23 mmol/L (21-32) Anion Gap 10 (6-14) Blood Urea Nitrogen 27 mg/dL (7-20) Creatinine 2.5 mg/dL (0.6-1.0) Estimated GFR (Cockcroft-Gault) 23.8 BUN/Creatinine Ratio 11 (6-20) Glucose Level 73 mg/dL (70-99) Calcium Level 8.0 mg/dL (8.5-10.1) Total Bilirubin 0.2 mg/dL (0.2-1.0) Aspartate Amino Transf (AST/SGOT) 13 U/L (15-37) Alanine Aminotransferase (ALT/SGPT) 7 U/L (14-59) Alkaline Phosphatase 45 U/L (46-116) Total Protein 5.8 g/dL (6.4-8.2) Albumin 1.2 g/dL (3.4-5.0) Albumin/Globulin Ratio 0.3 (1.0-1.7) Review of Systems Review of Systems Review of systems pertinent as per HPI otherwise 14 point review of system is negative Assessment and Plan Assessmemt and Plan Problems Medical Problems: (1) Altered mental status Status: Acute (2) Fall Status: Acute (3) UTI (urinary tract infection) Status: Acute Comment Review of Relevant I have reviewed the following items bianca (where applicable) has been applied. Labs Laboratory Tests Test 06/02/20 13:06 06/02/20 15:40 06/02/20 19:30 06/03/20 08:12 Urine Collection Type U cath Urine Color Patrica Urine Clarity Clear Urine pH 5.5 (<5.0-8.0) Urine Specific [place] 1.020 (1.000-1.030) Urine Protein >=300 mg/dL (NEG-TRACE) Urine Glucose (UA) Negative mg/dL (NEG) Urine Ketones (Stick) Trace mg/dL (NEG) Urine Blood Negative (NEG) Urine Nitrite Negative (NEG) Urine Bilirubin Small (NEG) Urine Urobilinogen Dipstick 2.0 mg/dL (0.2 mg/dL) Urine Leukocyte Esterase Small (NEG) Urine RBC 1-2 /HPF (0-2) Urine WBC 1-4 /HPF (0-4) Urine Squamous Epithelial Cells Few /LPF Urine Bacteria Moderate /HPF (0-FEW) Urine Hyaline Casts Few /HPF Urine Mucus Slight /LPF Urine Opiates Screen Neg (NEG) Urine Methadone Screen Neg (NEG) Urine Barbiturates Neg (NEG) Urine Phencyclidine Screen Neg (NEG) Urine Amphetamine/Methamphetamine Neg (NEG) Urine Benzodiazepines Screen Neg (NEG) Urine Cocaine Screen Neg (NEG) Urine Cannabinoids Screen Neg (NEG) Urine Ethyl Alcohol Neg (NEG) White Blood Count 3.8 x10^3/uL (4.0-11.0) 2.4 x10^3/uL (4.0-11.0) Red Blood Count 3.18 x10^6/uL (3.50-5.40) 2.99 x10^6/uL (3.50-5.40) Hemoglobin 8.1 g/dL (12.0-15.5) 7.4 g/dL (12.0-15.5) Hematocrit 25.7 % (36.0-47.0) 24.0 % (36.0-47.0) Mean Corpuscular Volume 81 fL (79-100) 80 fL (79-100) Mean Corpuscular Hemoglobin 25 pg (25-35) 25 pg (25-35) Mean Corpuscular Hemoglobin Concent 32 g/dL (31-37) 31 g/dL (31-37) Red Cell Distribution Width 18.6 % (11.5-14.5) 18.0 % (11.5-14.5) Platelet Count 139 x10^3/uL (140-400) 126 x10^3/uL (140-400) Neutrophils (%) (Auto) 70 % (31-73) 54 % (31-73) Lymphocytes (%) (Auto) 14 % (24-48) 29 % (24-48) Monocytes (%) (Auto) 16 % (0-9) 17 % (0-9) Eosinophils (%) (Auto) 0 % (0-3) 0 % (0-3) Basophils (%) (Auto) 0 % (0-3) 0 % (0-3) Neutrophils # (Auto) 2.7 x10^3/uL (1.8-7.7) 1.3 x10^3/uL (1.8-7.7) Lymphocytes # (Auto) 0.5 x10^3/uL (1.0-4.8) 0.7 x10^3/uL (1.0-4.8) Monocytes # (Auto) 0.6 x10^3/uL (0.0-1.1) 0.4 x10^3/uL (0.0-1.1) Eosinophils # (Auto) 0.0 x10^3/uL (0.0-0.7) 0.0 x10^3/uL (0.0-0.7) Basophils # (Auto) 0.0 x10^3/uL (0.0-0.2) 0.0 x10^3/uL (0.0-0.2) Prothrombin Time 17.2 SEC (11.7-14.0) Prothromb Time International Ratio 1.4 (0.8-1.1) Sodium Level 144 mmol/L (136-145) 142 mmol/L (136-145) Potassium Level 3.5 mmol/L (3.5-5.1) 3.7 mmol/L (3.5-5.1) Chloride Level 109 mmol/L (98-107) 109 mmol/L (98-107) Carbon Dioxide Level 24 mmol/L (21-32) 23 mmol/L (21-32) Anion Gap 11 (6-14) 10 (6-14) Blood Urea Nitrogen 25 mg/dL (7-20) 27 mg/dL (7-20) Creatinine 2.6 mg/dL (0.6-1.0) 2.5 mg/dL (0.6-1.0) Estimated GFR (Cockcroft-Gault) 22.7 23.8 BUN/Creatinine Ratio 10 (6-20) 11 (6-20) Glucose Level 92 mg/dL (70-99) 73 mg/dL (70-99) Calcium Level 8.0 mg/dL (8.5-10.1) 8.0 mg/dL (8.5-10.1) Magnesium Level 2.1 mg/dL (1.8-2.4) Total Bilirubin 0.2 mg/dL (0.2-1.0) 0.2 mg/dL (0.2-1.0) Aspartate Amino Transf (AST/SGOT) 17 U/L (15-37) 13 U/L (15-37) Alanine Aminotransferase (ALT/SGPT) 12 U/L (14-59) 7 U/L (14-59) Alkaline Phosphatase 58 U/L (46-116) 45 U/L (46-116) Troponin I Quantitative < 0.017 ng/mL (0.000-0.055) < 0.017 ng/mL (0.000-0.055) XE-Fdi-J-Type Natriuretic Peptide 3371 pg/mL (0-124) Total Protein 6.5 g/dL (6.4-8.2) 5.8 g/dL (6.4-8.2) Albumin 1.6 g/dL (3.4-5.0) 1.2 g/dL (3.4-5.0) Albumin/Globulin Ratio 0.3 (1.0-1.7) 0.3 (1.0-1.7) Thyroid Stimulating Hormone (TSH) 2.187 uIU/mL (0.358-3.74) Laboratory Tests Test 06/02/20 19:30 06/03/20 08:12 Troponin I Quantitative < 0.017 ng/mL (0.000-0.055) White Blood Count 2.4 x10^3/uL (4.0-11.0) Red Blood Count 2.99 x10^6/uL (3.50-5.40) Hemoglobin 7.4 g/dL (12.0-15.5) Hematocrit 24.0 % (36.0-47.0) Mean Corpuscular Volume 80 fL (79-100) Mean Corpuscular Hemoglobin 25 pg (25-35) Mean Corpuscular Hemoglobin Concent 31 g/dL (31-37) Red Cell Distribution Width 18.0 % (11.5-14.5) Platelet Count 126 x10^3/uL (140-400) Neutrophils (%) (Auto) 54 % (31-73) Lymphocytes (%) (Auto) 29 % (24-48) Monocytes (%) (Auto) 17 % (0-9) Eosinophils (%) (Auto) 0 % (0-3) Basophils (%) (Auto) 0 % (0-3) Neutrophils # (Auto) 1.3 x10^3/uL (1.8-7.7) Lymphocytes # (Auto) 0.7 x10^3/uL (1.0-4.8) Monocytes # (Auto) 0.4 x10^3/uL (0.0-1.1) Eosinophils # (Auto) 0.0 x10^3/uL (0.0-0.7) Basophils # (Auto) 0.0 x10^3/uL (0.0-0.2) Sodium Level 142 mmol/L (136-145) Potassium Level 3.7 mmol/L (3.5-5.1) Chloride Level 109 mmol/L (98-107) Carbon Dioxide Level 23 mmol/L (21-32) Anion Gap 10 (6-14) Blood Urea Nitrogen 27 mg/dL (7-20) Creatinine 2.5 mg/dL (0.6-1.0) Estimated GFR (Cockcroft-Gault) 23.8 BUN/Creatinine Ratio 11 (6-20) Glucose Level 73 mg/dL (70-99) Calcium Level 8.0 mg/dL (8.5-10.1) Total Bilirubin 0.2 mg/dL (0.2-1.0) Aspartate Amino Transf (AST/SGOT) 13 U/L (15-37) Alanine Aminotransferase (ALT/SGPT) 7 U/L (14-59) Alkaline Phosphatase 45 U/L (46-116) Total Protein 5.8 g/dL (6.4-8.2) Albumin 1.2 g/dL (3.4-5.0) Albumin/Globulin Ratio 0.3 (1.0-1.7) Microbiology 06/02/20 Urine Culture - Preliminary, Resulted Medications Current Medications Ondansetron HCl (Zofran) 4 mg PRN Q8HRS PRN IV NAUSEA/VOMITING; Start 06/02/20 at 19:00; Stop 06/03/20 at 10:43; Status DC Acetaminophen (Tylenol) 650 mg PRN Q4HRS PRN PO FEVER > 100.3'F; Start 06/02/20 at 19:00; Stop 06/02/20 at 22:56; Status DC Piperacillin Sod/ Tazobactam Sod 3.375 gm/Sodium Chloride 50 ml @ 100 mls/hr 1X ONCE IV ; Start 06/02/20 at 19:00; Stop 06/02/20 at 19:02; Status DC Piperacillin Sod/ Tazobactam Sod 2.25 gm/Sodium Chloride 50 ml @ 100 mls/hr 1X ONCE IV ; Start 06/02/20 at 19:15; Stop 06/02/20 at 19:16; Status DC Cephalexin HCl (Keflex) 500 mg 1X ONCE PO Last administered on 06/02/20at 19:21; Start 06/02/20 at 19:30; Stop 06/02/20 at 19:31; Status DC Ondansetron HCl (Zofran) 4 mg PRN Q6HRS PRN IVP NAUSEA/VOMITING; Start 06/02/20 at 19:45 Al Hydroxide/Mg Hydroxide (Mylanta Plus Xs) 30 ml PRN Q3HRS PRN PO HEARTBURN / GAS; Start 06/02/20 at 19:45 Calcium Carbonate/ Glycine (Tums) 500 mg PRN Q3HRS PRN PO UPSET STOMACH; Start 06/02/20 at 19:45 Acetaminophen/ Hydrocodone Bitart (Lortab 5/325) 1 tab PRN Q4HRS PRN PO MILD PAIN 1-3; Start 06/02/20 at 19:45 Acetaminophen/ Hydrocodone Bitart (Lortab 5/325) 2 tab PRN Q4HRS PRN PO MODERATE PAIN, SEVERE PAIN; Start 06/02/20 at 19:45 Acetaminophen (Tylenol) 650 mg PRN Q6HRS PRN PO Headaches, Temp > 101.5F; Start 06/02/20 at 19:45 Magnesium Hydroxide (Milk Of Magnesia) 2,400 mg PRN Q12HR PRN PO CONSTIPATION; Start 06/02/20 at 19:45 Bisacodyl (Dulcolax Supp) 10 mg PRN DAILY PRN [place] CONSTIPATION; Start 06/02/20 at 19:45 Enoxaparin Sodium (Lovenox 30mg Syringe) 30 mg Q24H SQ Last administered on 06/02/20at 22:30; Start 06/02/20 at 21:00 Sodium Chloride 1,000 ml @ 75 mls/hr 1X ONCE IV ; Start 06/02/20 at 19:45; Stop 06/03/20 at 09:04; Status DC Divalproex Sodium (Depakote Er) 1,500 mg QHS PO Last administered on 06/02/20at 22:55; Start 06/02/20 at 23:00 Risperidone (RisperDAL) 4 mg BID PO Last administered on 06/03/20at 08:21; Start 06/02/20 at 23:00 Albuterol/ Ipratropium (Duoneb) 3 ml RTQID NEB Last administered on 06/03/20at 15:38; Start 06/03/20 at 08:00 Albuterol Sulfate (Ventolin Neb Soln) 2.5 mg PRN Q6HRS PRN NEB SHORTNESS OF BREATH; Start 06/02/20 at 23:00 Ascorbic Acid (Vitamin C) 500 mg DAILY PO Last administered on 06/03/20at 11:21; Start 06/03/20 at 12:00 Perflutren Protein Type A Microsphe (Optison) 0.66 mg STK-MED ONCE IV ; Start 06/03/20 at 13:51; Stop 06/03/20 at 13:51; Status DC Multivitamins (Thera M Plus) 1 tab DAILY PO ; Start 06/04/20 at 09:00 Active Scripts Active Reported Acetaminophen 325 Mg Tablet 650 Mg PO PRN Q6HRS PRN Combivent Respimat Inhal (Ipratropium/Albuterol Sulfate) 4 Gm Aer.w.adap 2 Inh IH QID Latuda (Lurasidone Hcl) 20 Mg Tablet 1 Tab PO DAILY 30 Days Zoloft (Sertraline Hcl) 25 Mg Tablet 1 Tab PO DAILY Nystatin 15 Gm Powder 1 Carmen TP PRN PRN 7 Days apply to affected area(s) Miralax (Polyethylene Glycol 3350) 17 Gm Powd.pack 1 Packet PO PRN Q24HRS PRN 2 Days dissolve in water Miralax (Polyethylene Glycol 3350) 17 Gm Powd.pack 1 Packet PO QMWF 2 Days dissolve in water Depakote Er (Divalproex Sodium) 500 Mg Tab.er.24h 3 Tab PO QHS Mylanta Maximum Strength Liq (Mag Hydrox/Aluminum Hyd/Simeth) 355 Ml Oral.susp 30 Ml PO PRN Q4HRS PRN Risperdal Consta (Risperidone Microspheres) 37.5 Mg/2 Ml Disp.syrin 50 Mg IM Q2WKS Topamax (Topiramate) 100 Mg Tablet 1 Tab PO BID Risperdal (Risperidone) 4 Mg Tablet 1 Tab PO BID Milk Of Magnesia (Magnesium Hydroxide) 400 Mg/5 Ml Oral.susp 30 Ml PO DAILY PRN Anti-Diarrhea (Loperamide Hcl) 2 Mg Tablet 2 Mg PO PRN Levothyroxine Sodium 75 Mcg Tablet 1 Tab PO DAILY Aspirin 81 Mg Tab.chew 1 Tab PO DAILY Vitals/I & O Vital Sign - Last 24 Hours 06/02/20 06/02/20 06/02/20 06/02/20 18:12 19:30 20:00 21:00 Pulse 100 90 86 86 Resp 18 18 18 18 Pulse Ox 95 97 06/02/20 06/02/20 06/03/20 06/03/20 22:00 22:00 02:40 07:00 Temp 97.9 98.9 98.3 97.9 98.9 98.3 Pulse 87 72 79 Resp 18 16 18 B/P (MAP) 151/73 (99) 100/58 (72) 150/65 (93) Pulse Ox 97 95 97 O2 Delivery Room Air Room Air Room Air Room Air 06/03/20 06/03/20 06/03/20 06/03/20 07:59 08:30 11:00 11:41 Temp 97.8 97.8 Pulse 75 Resp 18 B/P (MAP) 127/68 (87) Pulse Ox 95 96 O2 Delivery Room Air Room Air Room Air Room Air 06/03/20 06/03/20 15:00 15:39 Temp 98.4 98.4 Pulse 78 Resp 16 B/P (MAP) 133/69 (90) Pulse Ox 98 O2 Delivery Room Air Room Air Intake and Output 06/02/20 06/02/20 06/03/20 15:00 23:00 07:00 Intake Total 600 ml Balance 600 ml Justicifation of Admission Dx: Justifications for Admission: Justification of Admission Dx: Yes Altered Mental Status: Altered Mental Status VEELYN MEYER MD Jun 03, 2020 17:00
[2020-06-03] MEDS: FUROSEMIDE 40 MG/4 ML VIAL. IVP SCH (17:21)
[2020-06-03 19:30] VITALS: BP 137/59
[2020-06-03] MEDS: DIVALPROEX EXTENDED RELEASE 500 MG TAB.ER.24H. PO SCH (21:26)
[2020-06-03] MEDS: ENOXAPARIN 30 MG/0.3 ML SYRINGE. SQ SCH (21:28)
[2020-06-03 23:00] VITALS: BP 136/67
[2020-06-04] VITALS (9 sets, daily range): BP systolic 96–154; BP diastolic 54–72
[2020-06-04 07:06] LABS: BASO % 0 % (0-3); EOS % 0 % (0-3); HEMATOCRIT 22.4 % (36.0-47.0); HEMOGLOBIN 7.1 g/dL (12.0-15.5); LYMPH # 0.9 x10^3/uL (1.0-4.8); LYMPH % 34 % (24-48); MEAN CORPUSCULAR HEMOGLOBIN 25 pg (25-35); MEAN CORPUSCULAR HGB CONC 32 g/dL (31-37); MEAN CORPUSCULAR VOLUME 80 fL (79-100); MONO # 0.4 x10^3/uL (0.0-1.1); MONO % 15 % (0-9); NEUT # 1.3 x10^3/uL (1.8-7.7); NEUT % 51 % (31-73); PLATELET COUNT 130 x10^3/uL (140-400); RED BLOOD COUNT 2.82 x10^6/uL (3.50-5.40); RED CELL DISTRIBUTION WIDTH 18.5 % (11.5-14.5); WHITE BLOOD COUNT 2.6 x10^3/uL (4.0-11.0)
[2020-06-04] MEDS: IPRATRPIUM/ALBUTEROL 0.5/2.5MG 3 ML NEBU. NEB SCH ×4 (07:31→20:12)
[2020-06-04 07:46] LABS: CREATININE 2.4 mg/dL (0.6-1.0); GFR 24.9; MAGNESIUM 2.1 mg/dL (1.8-2.4); PHOSPHORUS 3.4 mg/dL (2.6-4.7)
[2020-06-04] MEDS: MULTIVITAMIN with MINERAL TABLET. PO SCH (08:55)
[2020-06-04] MEDS: risperiDONE 1 MG TABLET. PO SCH ×2 (08:55→21:47)
[2020-06-04] MEDS: ASCORBIC ACID 500 MG TABLET PO SCH (08:55)
[2020-06-04] MEDS: FUROSEMIDE 40 MG/4 ML VIAL. IVP SCH ×2 (08:56→13:21)
--- NOTE | 2020-06-04 10:23 | NUR ---
SW following. 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 Pts hgb dropped, RN needing to get a stool sample. COVID pending for return to facility. SW will continue to follow.
[2020-06-04] MEDS ORDERED: ACETAMINOPHEN 325 MG TABLET. PO PRN (15:45)
[2020-06-04] MEDS ORDERED: diphenhydrAMINE ORAL ELIXIR 12.5 MG/5 ML ML PO PRN (15:45)
--- NOTE | 2020-06-04 15:49 | PDOC ---
PROGRESS NOTES Date of Service: DATE: 06/04/20 TIME: 15:48 Chief Complaint Chief Complaint Assessment/Plan Syncope AURA on chronic kidney disease which seems to be at baseline stage IIIb at least Leukopenia which is chronic as well Normocytic anemia of chronic inflammation most likely patient does not give history of active bleeding no hematemesis no black tarry stools have been reported we will send guaiac for completion Thrombocytopenia with no signs of active bleeding Vasomotor nephropathy Dehydration Severe malnutrition. Bedridden status as per patient Plan: Etiology of her syncopal episode seems to be vasovagal we will continue with work-up ordered initially Echocardiogram pending Will provide IV hydration Resume home medications FEN - Cardiac diet PPX - Lovenox FULL CODE Dispo - inpatient for above History of Present Illness History of Present Illness History of Present Illness Patient 60[facility]-old [facility] resident who presents for evaluation after being found down today. Patient had unwitnessed syncopal event in her bathroom at her [facility] and was found on the floor after having a bowel movement. Patient is confused at baseline therefore very poor historian. Imaging obtained in the ER negative for any acute fractures. Will admit patient for further syncopal evaluation. 06/03/2020 Patient seems to be at baseline, she is bedridden and has been so for several years. We will request a consultation with physical therapy, work-up still in progress reassurance has been provided to the patient and all of her concerns were addressed to the best of my abilities no acute events reported overnight discussed with RN 06/04/2020 Patient in no acute distress today. Mild discomfort of course with her infected finger. Reassurance provided she is scheduled to go to the OR later in the day all concerns were addressed to the best of my abilities Vitals Vitals Vital Signs Date Time Temp Pulse Resp B/P (MAP) Pulse Ox O2 Delivery O2 Flow Rate FiO2 06/04/20 15:32 Room Air 06/04/20 11:00 98.4 77 19 126/64 (84) 98 98.4 Physical Exam General: Alert, Oriented X3, Cooperative, No acute distress Heart: Regular rate, Normal S1, Normal S2 Lungs: Clear, Wheezing Abdomen: Normal bowel sounds, Soft Extremities: No clubbing, No cyanosis, Other (Atrophy of the lower extremities 2+ edema) Skin: No rashes, No breakdown, No significant lesion Labs LABS Laboratory Tests Test 06/04/20 06:05 White Blood Count 2.6 x10^3/uL (4.0-11.0) Red Blood Count 2.82 x10^6/uL (3.50-5.40) Hemoglobin 7.1 g/dL (12.0-15.5) Hematocrit 22.4 % (36.0-47.0) Mean Corpuscular Volume 80 fL (79-100) Mean Corpuscular Hemoglobin 25 pg (25-35) Mean Corpuscular Hemoglobin Concent 32 g/dL (31-37) Red Cell Distribution Width 18.5 % (11.5-14.5) Platelet Count 130 x10^3/uL (140-400) Neutrophils (%) (Auto) 51 % (31-73) Lymphocytes (%) (Auto) 34 % (24-48) Monocytes (%) (Auto) 15 % (0-9) Eosinophils (%) (Auto) 0 % (0-3) Basophils (%) (Auto) 0 % (0-3) Neutrophils # (Auto) 1.3 x10^3/uL (1.8-7.7) Lymphocytes # (Auto) 0.9 x10^3/uL (1.0-4.8) Monocytes # (Auto) 0.4 x10^3/uL (0.0-1.1) Eosinophils # (Auto) 0.0 x10^3/uL (0.0-0.7) Basophils # (Auto) 0.0 x10^3/uL (0.0-0.2) Sodium Level 138 mmol/L (136-145) Potassium Level 4.0 mmol/L (3.5-5.1) Chloride Level 107 mmol/L (98-107) Carbon Dioxide Level 25 mmol/L (21-32) Anion Gap 6 (6-14) Blood Urea Nitrogen 29 mg/dL (7-20) Creatinine 2.4 mg/dL (0.6-1.0) Estimated GFR (Cockcroft-Gault) 24.9 Glucose Level 89 mg/dL (70-99) Calcium Level 8.0 mg/dL (8.5-10.1) Phosphorus Level 3.4 mg/dL (2.6-4.7) Magnesium Level 2.1 mg/dL (1.8-2.4) Assessment and Plan Assessmemt and Plan Problems Medical Problems: (1) Altered mental status Status: Acute (2) Fall Status: Acute (3) UTI (urinary tract infection) Status: Acute Comment Review of Relevant I have reviewed the following items bianca (where applicable) has been applied. Labs Laboratory Tests Test 06/02/20 19:30 06/03/20 08:12 06/04/20 06:05 Troponin I Quantitative < 0.017 ng/mL (0.000-0.055) White Blood Count 2.4 x10^3/uL (4.0-11.0) 2.6 x10^3/uL (4.0-11.0) Red Blood Count 2.99 x10^6/uL (3.50-5.40) 2.82 x10^6/uL (3.50-5.40) Hemoglobin 7.4 g/dL (12.0-15.5) 7.1 g/dL (12.0-15.5) Hematocrit 24.0 % (36.0-47.0) 22.4 % (36.0-47.0) Mean Corpuscular Volume 80 fL (79-100) 80 fL (79-100) Mean Corpuscular Hemoglobin 25 pg (25-35) 25 pg (25-35) Mean Corpuscular Hemoglobin Concent 31 g/dL (31-37) 32 g/dL (31-37) Red Cell Distribution Width 18.0 % (11.5-14.5) 18.5 % (11.5-14.5) Platelet Count 126 x10^3/uL (140-400) 130 x10^3/uL (140-400) Neutrophils (%) (Auto) 54 % (31-73) 51 % (31-73) Lymphocytes (%) (Auto) 29 % (24-48) 34 % (24-48) Monocytes (%) (Auto) 17 % (0-9) 15 % (0-9) Eosinophils (%) (Auto) 0 % (0-3) 0 % (0-3) Basophils (%) (Auto) 0 % (0-3) 0 % (0-3) Neutrophils # (Auto) 1.3 x10^3/uL (1.8-7.7) 1.3 x10^3/uL (1.8-7.7) Lymphocytes # (Auto) 0.7 x10^3/uL (1.0-4.8) 0.9 x10^3/uL (1.0-4.8) Monocytes # (Auto) 0.4 x10^3/uL (0.0-1.1) 0.4 x10^3/uL (0.0-1.1) Eosinophils # (Auto) 0.0 x10^3/uL (0.0-0.7) 0.0 x10^3/uL (0.0-0.7) Basophils # (Auto) 0.0 x10^3/uL (0.0-0.2) 0.0 x10^3/uL (0.0-0.2) Sodium Level 142 mmol/L (136-145) 138 mmol/L (136-145) Potassium Level 3.7 mmol/L (3.5-5.1) 4.0 mmol/L (3.5-5.1) Chloride Level 109 mmol/L (98-107) 107 mmol/L (98-107) Carbon Dioxide Level 23 mmol/L (21-32) 25 mmol/L (21-32) Anion Gap 10 (6-14) 6 (6-14) Blood Urea Nitrogen 27 mg/dL (7-20) 29 mg/dL (7-20) Creatinine 2.5 mg/dL (0.6-1.0) 2.4 mg/dL (0.6-1.0) Estimated GFR (Cockcroft-Gault) 23.8 24.9 BUN/Creatinine Ratio 11 (6-20) Glucose Level 73 mg/dL (70-99) 89 mg/dL (70-99) Calcium Level 8.0 mg/dL (8.5-10.1) 8.0 mg/dL (8.5-10.1) Total Bilirubin 0.2 mg/dL (0.2-1.0) Aspartate Amino Transf (AST/SGOT) 13 U/L (15-37) Alanine Aminotransferase (ALT/SGPT) 7 U/L (14-59) Alkaline Phosphatase 45 U/L (46-116) Total Protein 5.8 g/dL (6.4-8.2) Albumin 1.2 g/dL (3.4-5.0) Albumin/Globulin Ratio 0.3 (1.0-1.7) Phosphorus Level 3.4 mg/dL (2.6-4.7) Magnesium Level 2.1 mg/dL (1.8-2.4) Laboratory Tests Test 06/04/20 06:05 White Blood Count 2.6 x10^3/uL (4.0-11.0) Red Blood Count 2.82 x10^6/uL (3.50-5.40) Hemoglobin 7.1 g/dL (12.0-15.5) Hematocrit 22.4 % (36.0-47.0) Mean Corpuscular Volume 80 fL (79-100) Mean Corpuscular Hemoglobin 25 pg (25-35) Mean Corpuscular Hemoglobin Concent 32 g/dL (31-37) Red Cell Distribution Width 18.5 % (11.5-14.5) Platelet Count 130 x10^3/uL (140-400) Neutrophils (%) (Auto) 51 % (31-73) Lymphocytes (%) (Auto) 34 % (24-48) Monocytes (%) (Auto) 15 % (0-9) Eosinophils (%) (Auto) 0 % (0-3) Basophils (%) (Auto) 0 % (0-3) Neutrophils # (Auto) 1.3 x10^3/uL (1.8-7.7) Lymphocytes # (Auto) 0.9 x10^3/uL (1.0-4.8) Monocytes # (Auto) 0.4 x10^3/uL (0.0-1.1) Eosinophils # (Auto) 0.0 x10^3/uL (0.0-0.7) Basophils # (Auto) 0.0 x10^3/uL (0.0-0.2) Sodium Level 138 mmol/L (136-145) Potassium Level 4.0 mmol/L (3.5-5.1) Chloride Level 107 mmol/L (98-107) Carbon Dioxide Level 25 mmol/L (21-32) Anion Gap 6 (6-14) Blood Urea Nitrogen 29 mg/dL (7-20) Creatinine 2.4 mg/dL (0.6-1.0) Estimated GFR (Cockcroft-Gault) 24.9 Glucose Level 89 mg/dL (70-99) Calcium Level 8.0 mg/dL (8.5-10.1) Phosphorus Level 3.4 mg/dL (2.6-4.7) Magnesium Level 2.1 mg/dL (1.8-2.4) Microbiology 06/02/20 Urine Culture - Final, Complete 06/02/20 Antimicrobic Susceptibility - Final, Complete Medications Current Medications Ondansetron HCl (Zofran) 4 mg PRN Q8HRS PRN IV NAUSEA/VOMITING; Start 06/02/20 at 19:00; Stop 06/03/20 at 10:43; Status DC Acetaminophen (Tylenol) 650 mg PRN Q4HRS PRN PO FEVER > 100.3'F; Start 06/02/20 at 19:00; Stop 06/02/20 at 22:56; Status DC Piperacillin Sod/ Tazobactam Sod 3.375 gm/Sodium Chloride 50 ml @ 100 mls/hr 1X ONCE IV ; Start 06/02/20 at 19:00; Stop 06/02/20 at 19:02; Status DC Piperacillin Sod/ Tazobactam Sod 2.25 gm/Sodium Chloride 50 ml @ 100 mls/hr 1X ONCE IV ; Start 06/02/20 at 19:15; Stop 06/02/20 at 19:16; Status DC Cephalexin HCl (Keflex) 500 mg 1X ONCE PO Last administered on 06/02/20at 19:21; Start 06/02/20 at 19:30; Stop 06/02/20 at 19:31; Status DC Ondansetron HCl (Zofran) 4 mg PRN Q6HRS PRN IVP NAUSEA/VOMITING; Start 06/02/20 at 19:45 Al Hydroxide/Mg Hydroxide (Mylanta Plus Xs) 30 ml PRN Q3HRS PRN PO HEARTBURN / GAS; Start 06/02/20 at 19:45 Calcium Carbonate/ Glycine (Tums) 500 mg PRN Q3HRS PRN PO UPSET STOMACH; Start 06/02/20 at 19:45 Acetaminophen/ Hydrocodone Bitart (Lortab 5/325) 1 tab PRN Q4HRS PRN PO MILD PAIN 1-3 Last administered on 06/04/20at 08:55; Start 06/02/20 at 19:45 Acetaminophen/ Hydrocodone Bitart (Lortab 5/325) 2 tab PRN Q4HRS PRN PO MODERATE PAIN, SEVERE PAIN; Start 06/02/20 at 19:45 Acetaminophen (Tylenol) 650 mg PRN Q6HRS PRN PO Headaches, Temp > 101.5F; Start 06/02/20 at 19:45 Magnesium Hydroxide (Milk Of Magnesia) 2,400 mg PRN Q12HR PRN PO CONSTIPATION; Start 06/02/20 at 19:45 Bisacodyl (Dulcolax Supp) 10 mg PRN DAILY PRN VT CONSTIPATION; Start 06/02/20 at 19:45 Enoxaparin Sodium (Lovenox 30mg Syringe) 30 mg Q24H SQ Last administered on 06/03/20at 21:28; Start 06/02/20 at 21:00; Stop 06/04/20 at 08:06; Status DC Sodium Chloride 1,000 ml @ 75 mls/hr 1X ONCE IV ; Start 06/02/20 at 19:45; Stop 06/03/20 at 09:04; Status DC Divalproex Sodium (Depakote Er) 1,500 mg QHS PO Last administered on 06/03/20at 21:26; Start 06/02/20 at 23:00 Risperidone (RisperDAL) 4 mg BID PO Last administered on 06/04/20at 08:55; Start 06/02/20 at 23:00 Albuterol/ Ipratropium (Duoneb) 3 ml RTQID NEB Last administered on 06/04/20at 15:32; Start 06/03/20 at 08:00 Albuterol Sulfate (Ventolin Neb Soln) 2.5 mg PRN Q6HRS PRN NEB SHORTNESS OF BREATH; Start 06/02/20 at 23:00 Ascorbic Acid (Vitamin C) 500 mg DAILY PO Last administered on 06/04/20at 08:55; Start 06/03/20 at 12:00 Perflutren Protein Type A Microsphe (Optison) 0.66 mg STK-MED ONCE IV ; Start 06/03/20 at 13:51; Stop 06/03/20 at 13:51; Status DC Multivitamins (Thera M Plus) 1 tab DAILY PO Last administered on 1/6/21at 08:55; Start 06/04/20 at 09:00 Furosemide (Lasix) 40 mg BID92 IVP Last administered on 06/04/20at 13:21; Start 06/03/20 at 17:00 Perflutren Protein Type A Microsphe (Optison) 0.66 mg STK-MED ONCE IV ; Start 06/03/20 at 14:00; Stop 06/04/20 at 12:35; Status DC Acetaminophen (Tylenol) 650 mg 1X PRN PRN PO PRE-TRANSFUSION; Start 06/04/20 at 15:45; Stop 06/05/20 at 15:44; Status UNV Diphenhydramine HCl (Benadryl Oral Elixir) 12.5 mg 1X PRN PRN PO PRE- TRANSFUSION; Start 06/04/20 at 15:45; Stop 06/05/20 at 15:44; Status UNV Active Scripts Active Reported Acetaminophen 325 Mg Tablet 650 Mg PO PRN Q6HRS PRN Combivent Respimat Inhal (Ipratropium/Albuterol Sulfate) 4 Gm Aer.w.adap 2 Inh IH QID Latuda (Lurasidone Hcl) 20 Mg Tablet 1 Tab PO DAILY 30 Days Zoloft (Sertraline Hcl) 25 Mg Tablet 1 Tab PO DAILY Nystatin 15 Gm Powder 1 Carmen TP PRN PRN 7 Days apply to affected area(s) Miralax (Polyethylene Glycol 3350) 17 Gm Powd.pack 1 Packet PO PRN Q24HRS PRN 2 Days dissolve in water Miralax (Polyethylene Glycol 3350) 17 Gm Powd.pack 1 Packet PO QMWF 2 Days dissolve in water Depakote Er (Divalproex Sodium) 500 Mg Tab.er.24h 3 Tab PO QHS Mylanta Maximum Strength Liq (Mag Hydrox/Aluminum Hyd/Simeth) 355 Ml Oral.susp 30 Ml PO PRN Q4HRS PRN Risperdal Consta (Risperidone Microspheres) 37.5 Mg/2 Ml Disp.syrin 50 Mg IM Q2WKS Topamax (Topiramate) 100 Mg Tablet 1 Tab PO BID Risperdal (Risperidone) 4 Mg Tablet 1 Tab PO BID Milk Of Magnesia (Magnesium Hydroxide) 400 Mg/5 Ml Oral.susp 30 Ml PO DAILY PRN Anti-Diarrhea (Loperamide Hcl) 2 Mg Tablet 2 Mg PO PRN Levothyroxine Sodium 75 Mcg Tablet 1 Tab PO DAILY Aspirin 81 Mg Tab.chew 1 Tab PO DAILY Vitals/I & O Vital Sign - Last 24 Hours 06/03/20 06/03/20 06/03/20 06/03/20 19:30 19:50 20:48 23:00 Temp 98.5 98.4 98.5 98.4 Pulse 69 80 Resp 20 20 B/P (MAP) 137/59 (85) 136/67 (90) Pulse Ox 97 94 98 O2 Delivery Room Air Room Air Room Air Room Air 06/04/20 06/04/20 06/04/20 06/04/20 03:17 07:00 07:31 08:00 Temp 98.4 98.2 98.4 98.2 Pulse 80 80 Resp 20 19 B/P (MAP) 134/68 (90) 154/61 (92) Pulse Ox 98 97 97 O2 Delivery Room Air Room Air Room Air Room Air 06/04/20 06/04/20 06/04/20 11:00 11:20 15:32 Temp 98.4 98.4 Pulse 77 Resp 19 B/P (MAP) 126/64 (84) Pulse Ox 98 O2 Delivery Room Air Room Air Room Air Intake and Output 06/03/20 06/03/20 06/04/20 15:00 23:00 07:00 Intake Total 800 ml Balance 800 ml Justicifation of Admission Dx: Justifications for Admission: Justification of Admission Dx: Yes Altered Mental Status: Altered Mental Status EVELYN MEYER MD Jun 04, 2020 15:49
--- NOTE | 2020-06-04 21:10 | NUR ---
Blood was stopped around 1914 due to an infiltrated IV. Day shift RN stopped blood at this time. Blood restarted at 2099.
[2020-06-04] MEDS: DIVALPROEX EXTENDED RELEASE 500 MG TAB.ER.24H. PO SCH (21:37)
[2020-06-04 23:08] LABS: CALCIUM PTH 7.9 mg/dL (8.7-10.3); CREATININE PTH 2.25 mg/dL (0.57-1.00); PHOSPHORUS PTH 3.3 mg/dL (3.0-4.3); PTH INTACT 219 pg/mL (15-65)
[2020-06-04 23:34] LABS: HEMATOCRIT 25.8 % (36.0-47.0); HEMOGLOBIN 8.4 g/dL (12.0-15.5)
[2020-06-05 03:06] VITALS: BP 142/75
[2020-06-05 07:00] VITALS: BP 170/102
--- NOTE | 2020-06-05 07:40 | NUR ---
IP: Pt's urine culture is VRE + requiring contact precautions.
[2020-06-05] MEDS: risperiDONE 1 MG TABLET. PO SCH (08:28)
[2020-06-05] MEDS: MULTIVITAMIN with MINERAL TABLET. PO SCH (08:28)
[2020-06-05] MEDS: FUROSEMIDE 40 MG/4 ML VIAL. IVP SCH (08:28)
[2020-06-05] MEDS: ASCORBIC ACID 500 MG TABLET PO SCH (08:28)
[2020-06-05 08:32] LABS: BASO % 0 % (0-3); EOS % 0 % (0-3); HEMATOCRIT 23.7 % (36.0-47.0); HEMOGLOBIN 7.6 g/dL (12.0-15.5); LYMPH # 0.9 x10^3/uL (1.0-4.8); LYMPH % 31 % (24-48); MEAN CORPUSCULAR HEMOGLOBIN 25 pg (25-35); MEAN CORPUSCULAR HGB CONC 32 g/dL (31-37); MEAN CORPUSCULAR VOLUME 79 fL (79-100); MONO # 0.4 x10^3/uL (0.0-1.1); MONO % 13 % (0-9); NEUT # 1.7 x10^3/uL (1.8-7.7); NEUT % 56 % (31-73); PLATELET COUNT 138 x10^3/uL (140-400); RED CELL DISTRIBUTION WIDTH 17.8 % (11.5-14.5)
[2020-06-05] MEDS: IPRATRPIUM/ALBUTEROL 0.5/2.5MG 3 ML NEBU. NEB SCH ×2 (09:23→12:00)
--- NOTE | 2020-06-05 09:44 | NUR ---
SEAN following. Discussed with RN, pt from [facility] and [facility]. Clinicals faxed to facility, and notified of anticipated discharge today. SEAN had to leave message for admissions representative at the facility. Awaiting discharge orders and transportation time from [facility] and [facility]. SEAN will continue to follow. Addendum: 06/05/20 at 1141 by ROMELIA ESTRADA Discharge orders faxed to [facility] and [facility] - awaiting transportation time. Addendum: 06/05/20 at 1152 by ROMELIA ESTRADA Pt will be collected at 1300 by [facility]. RN notified.
--- NOTE | 2020-06-05 10:59 | SNU/HH DC ---
DISCHARGE ORDERS DISCHARGE INFORMATION: DISCHARGE DATE: Jun 05, 2020 FINAL DIAGNOSIS Problems Medical Problems: (1) Altered mental status Status: Acute (2) Fall Status: Acute (3) UTI (urinary tract infection) Status: Acute CONDITION ON DISCHARGE: Stable CODE STATUS: Code Status: Full SENIOR LIVING: SNF STAY <30 DAYS: Yes LTAC: ADMIT TO LTAC: Yes POST DISCHARGE ORDERS: ACTIVITY ORDERS: Resume previous activity WEIGHT BEARING STATUS: As tolerated DIET AFTER DISCHARGE: Cardiac CHECKS AFTER DISCHARGE: CHECKS AFTER DISCHARGE: Check blood press - daily, Check your Temp as needed, Weigh Yourself Daily TREATMENT/EQUIPMENT ORDERS: ADAPTIVE EQUIPMENT NEEDED: None Physical Therapy For: Evalulation/Treatment Occupational Therapy For: Evaluation/Treatment Speech Language Pathology For: Evaluation/Treatment DISCHARGE MEDICATIONS: Home Meds Reported Medications Acetaminophen (ACETAMINOPHEN) 325 Mg Tablet, 650 MG PO PRN Q6HRS PRN for PAIN, TAB 06/02/20 Ipratropium/Albuterol Sulfate (COMBIVENT RESPIMAT INHAL) 4 Gm Aer.w.adap, 2 INH IH QID for Shortness of breath, INHALER 05/24/20 Lurasidone Hcl (LATUDA) 20 Mg Tablet, 1 TAB PO DAILY for Schizoaffective disorder for 30 Days, #30 TAB 0 Refills 05/24/20 Sertraline Hcl (ZOLOFT) 25 Mg Tablet, 1 TAB PO DAILY for major depressive disorder, #30 TAB 2 Refills 11/09/19 Nystatin (NYSTATIN) 15 Gm Powder, 1 REHAN TP PRN PRN for candidiasis for 7 Days, #1 BOTTLE 0 Refills apply to affected area(s) 11/09/19 Polyethylene Glycol 3350 (MIRALAX) 17 Gm Powd.pack, 1 PACKET PO PRN Q24HRS PRN for CONSTIPATION for 2 Days, PACKET 0 Refills dissolve in water 11/09/19 Polyethylene Glycol 3350 (MIRALAX) 17 Gm Powd.pack, 1 PACKET PO QMWF for constipation for 2 Days, #2 PACKET 0 Refills dissolve in water 11/09/19 Divalproex Sodium (DEPAKOTE ER) 500 Mg Tab.er.24h, 3 TAB PO QHS for schizoaffective disorder, #90 TAB 2 Refills 11/09/19 Mag Hydrox/Aluminum Hyd/Simeth (Mylanta Maximum Strength Liq) 355 Ml Oral.susp, 30 ML PO PRN Q4HRS PRN for HEARTBURN / GAS, MISC 11/09/19 Risperidone Microspheres (RISPERDAL CONSTA) 37.5 Mg/2 Ml Disp.syrin, 50 MG IM Q2WKS for schizoaffective disorder, SYR 01/03/17 Topiramate (TOPAMAX) 100 Mg Tablet, 1 TAB PO BID, #60 TAB 1 Refill 01/03/17 Risperidone (RISPERDAL) 4 Mg Tablet, 1 TAB PO BID, #30 TAB 01/03/17 Magnesium Hydroxide (MILK OF MAGNESIA) 400 Mg/5 Ml Oral.susp, 30 ML PO DAILY PRN for CONSTIPATION, MISC 01/03/17 Loperamide Hcl (ANTI-DIARRHEA) 2 Mg Tablet, 2 MG PO PRN for DIARRHEA, TAB 01/03/17 Levothyroxine Sodium (LEVOTHYROXINE SODIUM) 75 Mcg Tablet, 1 TAB PO DAILY, #30 TAB 5 Refills 01/03/17 Aspirin (ASPIRIN) 81 Mg Tab.chew, 1 TAB PO DAILY, #30 TAB 3 Refills 01/03/17 EVELYN MEYER MD Jun 05, 2020 10:59
[2020-06-05 11:00] VITALS: BP 126/71
--- NOTE | 2020-06-05 13:15 | NUR ---
Discharge instructions reviewed with patient, verbalized understanding. [phone].
--- NOTE | 2020-06-05 17:17 | PDOC3 ---
Discharge Summary Visit Information Date of Admission: Jun 02, 2020 Date of Discharge: Jun 05, 2020 Admitting Diagnosis Comment: Syncope AURA Vasomotor nephropathy Dehydration Severe malnutrition Final Diagnosis Problems Medical Problems: (1) Altered mental status Status: Acute (2) Fall Status: Acute (3) UTI (urinary tract infection) Status: Acute Syncope AURA on chronic kidney disease which seems to be at baseline stage IIIb at least Leukopenia which is chronic as well Normocytic anemia of chronic inflammation most likely patient does not give history of active bleeding no hematemesis no black tarry stools have been reported we will send guaiac for completion Thrombocytopenia with no signs of active bleeding Vasomotor nephropathy Dehydration Severe malnutrition. Bedridden status as per patient Brief Hospital Course Allergies Allergies Coded Allergies Type Severity Reaction Last Updated Verified haloperidol Allergy Intermediate 06/02/20 Yes iron dextran complex Allergy Intermediate 06/02/20 Yes I S O L A T I O N *CONTACT* Allergy Unknown 06/05/20 Yes Vital Signs Vital Signs Date Time Temp Pulse Resp B/P (MAP) Pulse Ox O2 Delivery O2 Flow Rate FiO2 06/05/20 11:00 99.3 92 14 126/71 (89) 97 Room Air 99.3 Lab Results Laboratory Tests Test 06/04/20 06:05 06/04/20 22:34 06/05/20 07:58 White Blood Count 2.6 x10^3/uL (4.0-11.0) 3.0 x10^3/uL (4.0-11.0) Red Blood Count 2.82 x10^6/uL (3.50-5.40) 3.00 x10^6/uL (3.50-5.40) Hemoglobin 7.1 g/dL (12.0-15.5) 8.4 g/dL (12.0-15.5) 7.6 g/dL (12.0-15.5) Hematocrit 22.4 % (36.0-47.0) 25.8 % (36.0-47.0) 23.7 % (36.0-47.0) Mean Corpuscular Volume 80 fL (79-100) 79 fL (79-100) Mean Corpuscular Hemoglobin 25 pg (25-35) 25 pg (25-35) Mean Corpuscular Hemoglobin Concent 32 g/dL (31-37) 32 g/dL (31-37) 32 g/dL (31-37) Red Cell Distribution Width 18.5 % (11.5-14.5) 17.8 % (11.5-14.5) Platelet Count 130 x10^3/uL (140-400) 138 x10^3/uL (140-400) Neutrophils (%) (Auto) 51 % (31-73) 56 % (31-73) Lymphocytes (%) (Auto) 34 % (24-48) 31 % (24-48) Monocytes (%) (Auto) 15 % (0-9) 13 % (0-9) Eosinophils (%) (Auto) 0 % (0-3) 0 % (0-3) Basophils (%) (Auto) 0 % (0-3) 0 % (0-3) Neutrophils # (Auto) 1.3 x10^3/uL (1.8-7.7) 1.7 x10^3/uL (1.8-7.7) Lymphocytes # (Auto) 0.9 x10^3/uL (1.0-4.8) 0.9 x10^3/uL (1.0-4.8) Monocytes # (Auto) 0.4 x10^3/uL (0.0-1.1) 0.4 x10^3/uL (0.0-1.1) Eosinophils # (Auto) 0.0 x10^3/uL (0.0-0.7) 0.0 x10^3/uL (0.0-0.7) Basophils # (Auto) 0.0 x10^3/uL (0.0-0.2) 0.0 x10^3/uL (0.0-0.2) Sodium Level 138 mmol/L (136-145) Potassium Level 4.0 mmol/L (3.5-5.1) Chloride Level 107 mmol/L (98-107) Carbon Dioxide Level 25 mmol/L (21-32) Anion Gap 6 (6-14) Blood Urea Nitrogen 29 mg/dL (7-20) Creatinine 2.4 mg/dL (0.6-1.0) Estimated GFR (Non- 23 (>59) Estimated GFR (Cockcroft-Gault) 24.9 Glucose Level 89 mg/dL (70-99) Calcium Level 8.0 mg/dL (8.5-10.1) Phosphorus Level 3.4 mg/dL (2.6-4.7) Magnesium Level 2.1 mg/dL (1.8-2.4) EGFR 27 (>59) PTH (Intact) Specimen Description Comment (.) Parathyroid Hormone (Intact) 219 pg/mL (15-65) Calcium (PTH Intact) 7.9 mg/dL (8.7-10.3) Creatinine (PTH Intact) 2.25 mg/dL (0.57-1.00) Phosphorus (PTH Intact) 3.3 mg/dL (3.0-4.3) Laboratory Tests Test 06/04/20 22:34 06/05/20 07:58 Hemoglobin 8.4 g/dL (12.0-15.5) 7.6 g/dL (12.0-15.5) Hematocrit 25.8 % (36.0-47.0) 23.7 % (36.0-47.0) Mean Corpuscular Hemoglobin Concent 32 g/dL (31-37) 32 g/dL (31-37) White Blood Count 3.0 x10^3/uL (4.0-11.0) Red Blood Count 3.00 x10^6/uL (3.50-5.40) Mean Corpuscular Volume 79 fL (79-100) Mean Corpuscular Hemoglobin 25 pg (25-35) Red Cell Distribution Width 17.8 % (11.5-14.5) Platelet Count 138 x10^3/uL (140-400) Neutrophils (%) (Auto) 56 % (31-73) Lymphocytes (%) (Auto) 31 % (24-48) Monocytes (%) (Auto) 13 % (0-9) Eosinophils (%) (Auto) 0 % (0-3) Basophils (%) (Auto) 0 % (0-3) Neutrophils # (Auto) 1.7 x10^3/uL (1.8-7.7) Lymphocytes # (Auto) 0.9 x10^3/uL (1.0-4.8) Monocytes # (Auto) 0.4 x10^3/uL (0.0-1.1) Eosinophils # (Auto) 0.0 x10^3/uL (0.0-0.7) Basophils # (Auto) 0.0 x10^3/uL (0.0-0.2) Brief Hospital Course History of Present Illness Patient 60-year-old female correction resident who presents for evaluation after being found down today. Patient had unwitnessed syncopal event in her bathroom at her correction and was found on the floor after having a bowel movement. Patient is confused at baseline therefore very poor historian. Imaging obtained in the ER negative for any acute fractures. Will admit patient for further syncopal evaluation. 06/03/2020 Patient seems to be at baseline, she is bedridden and has been so for several years. We will request a consultation with physical therapy, work-up still in progress reassurance has been provided to the patient and all of her concerns were addressed to the best of my abilities no acute events reported overnight discussed with RN 06/04/2020 Patient in no acute distress today. Mild discomfort of course with her infected finger. Reassurance provided she is scheduled to go to the OR later in the day all concerns were addressed to the best of my abilities 06/05/2020 Patient did not present any evidence of bleeding. Her work-up on her last admission did not reveal any changes in her SPEP and her anemia was deemed to be of chronic disease related to her chronic kidney disease. Patient received 1 unit of PRBCs prior to discharge hemoglobin probably still equalizing but is much improved compared to yesterday at 7.1. Today was at 7.6 after 1 unit of packed red blood cells. She will be transferred in hemodynamically stable co ndition and medically optimized. She did receive Lasix during her inpatient hospital stay due to edema on her lower extremities. Patient is bedbound most likely this is a function of malnutrition given her albumin level and provide will continue to have peripheral edema she did not present any evidence of paroxysmal nocturnal dyspnea or other symptoms that would have prompted a c ardiological evaluation at the present time. She is in good spirits to be going back to her institution all concerns were addressed prior to her departure Assessment Assessment []PROCEDURE: CT HEAD AND CERVICAL SPINE WO EXAM: Head and cervical spine CT without contrast. HISTORY: Fall. TECHNIQUE: Computed tomographic images of the head and cervical spine were obtained without contrast. *One or more of the following individualized dose reduction techniques were utilized for this examination: 1. Automated exposure control. 2. Adjustment of the mA and/or kV according to patient size. 3. Use of iterative reconstruction technique. COMPARISON: 11/08/2019. FINDINGS: Head: There is no acute hemorrhage. There is no mass effect or midline shift. There is no hydrocephalus. There are cerebral white matter changes due to chronic small vessel disease. There is cerebral and cerebellar volume loss. There is no calvarial lesion. The orbits and visualized paranasal sinuses are unremarkable. The mastoid air cells are clear. Cervical spine: There is mild cervical kyphosis. There is mild multilevel endplate remodeling and facet arthropathy. No displaced fracture is seen. There is no significant foraminal or central canal stenosis. The lung apices are unremarkable. IMPRESSION: 1. No acute intracranial finding or evidence of acute cervical spine trauma. 2. Bilateral cerebral white matter changes, likely due to chronic small vessel disease. 3. Mild multilevel degenerative change involving the cervical spine. Electronically signed by: Beulah Delgado MD (06/02/2020 1:50 PM) [id number] DICTATED and SIGNED BY: BEULAH DELGADO MD DATE: 06/02/20 [id number] 0 PROCEDURE: KNEE LEFT 3V EXAMINATION: XR FOOT_LEFT 3 VIEWS, XR KNEE _3 VIEWS_LT, XR LT TIBIA + FIBULA CLINICAL HISTORY: Left lower extremity pain following fall TECHNIQUE: XR FOOT_LEFT 3 VIEWS, XR KNEE _3 VIEWS_LT, XR LT TIBIA + FIBULA Number of Images/Views: 3 knee, 2 tibia/fibula, 3 foot COMPARISON: None FINDINGS: LEFT KNEE: Moderate to severe medial and mild to moderate lateral compartment narrowing. Prominent tricompartmental marginal osteophytes. No acute fracture. No joint effusion. LEFT TIBIA/FIBULA: No acute fracture. Limited evaluation of the ankle unremarkable. No focal soft tissue swelling. LEFT FOOT: No definite acute fracture. Somewhat atypical appearance of the proximal phalangeal bases is felt to be projectional secondary to patient positioning. Mild calcaneocuboid degenerative changes. Joint spaces and alignment otherwise relatively well-maintained. Small plantar calcaneal enthesophyte. Soft tissue prominence in the forefoot. IMPRESSION: No definite acute osseous abnormality involving the left knee, tibia, fibula, or foot. Tricompartmental degenerative changes left knee, moderate to severe in the medial compartment. Electronically signed by: Rafiq Conklin DO (06/02/2020 6:44 PM) [facility] DICTATED and SIGNED BY: RAFIQ CONKLIN DO DATE: 06/02/20 [id number] 0 PROCEDURE: HIP LEFT 2V WITH PELVIS EXAM: Pelvis and left hip, 3 views. HISTORY: Found down. COMPARISON: 11/09/2015. FINDINGS: A frontal view the pelvis and 2 views of the left hip are obtained. No displaced fracture is seen. There are surgical clips within the pelvis and left lower quadrant. There are degenerative changes involving the visualized lower lumbar spine. IMPRESSION: No acute osseous finding. Electronically signed by: Beulah Delgado MD (06/02/2020 1:45 PM) [id number] Discharge Information Condition at Discharge: Improved Follow Up: Weeks Disposition/Orders: D/C to Another Facility Scheduled Aspirin (Aspirin) 81 Mg Tab.chew, 1 TAB PO DAILY, #30 Ref 3 (Reported) Entered as Reported by: RENATO MULLINS on 01/03/171837 Last Action: Reviewed on 06/02/202144 by JOSHUA TUCKER Divalproex Sodium (Depakote Er) 500 Mg Tab.er.24h, 3 TAB PO QHS for schizoaffective disorder, #90 Ref 2 (Reported) Entered as Reported by: Varun Liu on 11/09/19 0300 Last Action: Continued on 06/02/202236 by JOSHUA TUCKER Ipratropium/Albuterol Sulfate (Combivent Respimat Inhal) 4 Gm Aer.w.adap, 2 INH IH QID for Shortness of breath, (Reported) Entered as Reported by: ALLAN BARAJAS on 05/24/20 1721 Last Action: Reviewed on 06/02/202144 by JOSHUA TUCKER Levothyroxine Sodium (Levothyroxine Sodium) 75 Mcg Tablet, 1 TAB PO DAILY, #30 Ref 5 (Reported) Entered as Reported by: RENATO MULLINS on 01/03/171837 Last Action: Reviewed on 06/02/202144 by JOSHUA TUCKER Lurasidone Hcl (Latuda) 20 Mg Tablet, 1 TAB PO DAILY for Schizoaffective disorder for 30 Days, #30 Ref 0 (Reported) Entered as Reported by: ALLAN BARAJAS on 05/24/20 1718 Last Action: Reviewed on 06/02/202144 by JOSHUA TUCKER Polyethylene Glycol 3350 (Miralax) 17 Gm Powd.pack, 1 PACKET PO QMWF for constipation for 2 Days, #2 Ref 0 (Reported) dissolve in water Entered as Reported by: Varun Liu on 11/09/19 0300 Last Action: Reviewed on 06/02/202144 by JOSHUA TUCKER Risperidone (Risperdal) 4 Mg Tablet, 1 TAB PO BID, #30 (Reported) Entered as Reported by: RENATO MULLINS on 01/03/171845 Last Action: Converted on 06/02/202236 by JOSHUA TUCKER Risperidone Microspheres (Risperdal Consta) 37.5 Mg/2 Ml Disp.syrin, 50 MG IM Q2WKS for schizoaffective disorder, (Reported) Entered as Reported by: RENATO MULLINS on 01/03/171850 Last Action: Reviewed on 06/02/202144 by JOSHUA TUCKER Sertraline Hcl (Zoloft) 25 Mg Tablet, 1 TAB PO DAILY for major depressive disorder, #30 Ref 2 (Reported) Entered as Reported by: Varun Liu on 11/09/19 0300 Last Action: Reviewed on 06/02/202144 by JOSHUA TUCKER Topiramate (Topamax) 100 Mg Tablet, 1 TAB PO BID, #60 Ref 1 (Reported) Entered as Reported by: RENATO MULLINS on 01/03/171846 Last Action: Reviewed on 06/02/202144 by JOSHUA TUCKER Scheduled PRN Acetaminophen (Acetaminophen) 325 Mg Tablet, 650 MG PO PRN Q6HRS PRN for PAIN, (Reported) Entered as Reported by: JOSHUA TUCKER on 06/02/202144 Last Action: New Order on 06/02/202144 by JOSHUA TUCKER Loperamide Hcl (Anti-Diarrhea) 2 Mg Tablet, 2 MG PO for DIARRHEA, (Reported) Entered as Reported by: RENATO MULLINS on 01/03/171845 Last Action: Reviewed on 06/02/202144 by JOSHUA TUCKER Mag Hydrox/Aluminum Hyd/Simeth (Mylanta Maximum Strength Liq) 355 Ml Oral.susp, 30 ML PO PRN Q4HRS PRN for HEARTBURN / GAS, (Reported) Entered as Reported by: Varun Liu on 11/09/19 0248 Last Action: Reviewed on 06/02/202144 by JOSHUA TUCKER Magnesium Hydroxide (Milk Of Magnesia) 400 Mg/5 Ml Oral.susp, 30 ML PO DAILY PRN for CONSTIPATION, (Reported) Entered as Reported by: RENATO MULLINS on 01/03/171845 Last Action: Reviewed on 06/02/202144 by JOSHUA TUCKER Nystatin (Nystatin) 15 Gm Powder, 1 REHAN TP PRN PRN for candidiasis for 7 Days, #1 Ref 0 (Reported) apply to affected area(s) Entered as Reported by: Varun Liu on 11/09/19299 Last Action: Reviewed on 06/02/202144 by JOSHUA TUCKER Polyethylene Glycol 3350 (Miralax) 17 Gm Powd.pack, 1 PACKET PO PRN Q24HRS PRN for CONSTIPATION for 2 Days, Ref 0 (Reported) dissolve in water Entered as Reported by: Varun Liu on 11/09/19299 Last Action: Reviewed on 06/02/202144 by JOSHUA TUCKER Justicifation of Admission Dx: Justifications for Admission: Justification of Admission Dx: Yes Altered Mental Status: Altered Mental Status EVELYN MEYER MD Jun 05, 2020 17:17
== END 2020-06-05 13:24 | DRG 73 ==
LOC: ER 12:38 → ED HOLD 18:55 → 4 NORTH 21:29
PROVIDERS: ADMIT Family Medicine; ATTEND Family Medicine
PROC: 30233N1 Transfusion of Nonautologous Red Blood Cells into Peripheral Vein, Percutaneous Approach (ICD-10-PCS; principal; 2020-06-04)
DX: G90.8 Other disorders of autonomic nervous system (principal); N17.0 Acute kidney failure with tubular necrosis; E43 Unspecified severe protein-calorie malnutrition; N39.0 Urinary tract infection, site not specified; Z20.822 Contact with and (suspected) exposure to COVID-19; F32.9 Major depressive disorder, single episode, unspecified; F41.9 Anxiety disorder, unspecified; K21.9 Gastro-esophageal reflux disease without esophagitis; E78.00 Pure hypercholesterolemia, unspecified; E03.9 Hypothyroidism, unspecified; F20.9 Schizophrenia, unspecified; F44.81 Dissociative identity disorder; F79 Unspecified intellectual disabilities; R62.50 Unspecified lack of expected normal physiological development in childhood; E78.5 Hyperlipidemia, unspecified; N18.9 Chronic kidney disease, unspecified; I12.9 Hypertensive chronic kidney disease with stage 1 through stage 4 chronic kidney disease, or unspecified chronic kidney disease; E86.0 Dehydration; D64.9 Anemia, unspecified; D72.819 Decreased white blood cell count, unspecified; D69.6 Thrombocytopenia, unspecified; I73.9 Peripheral vascular disease, unspecified; M40.202 Unspecified kyphosis, cervical region; M47.9 Spondylosis, unspecified; Z68.39 Body mass index [BMI] 39.0-39.9, adult; Z74.01 Bed confinement status; Z88.8 Allergy status to other drugs, medicaments and biological substances; Z91.041 Radiographic dye allergy status
CPT/HCPCS: 36415; 70450; 72125; 73502; 73562; 73590; 73630; 80048; 80053; 80307; 81001; 83735; 83880; 83970; 84100; 84443; 84484; 85014; 85018; 85025; 85610; 86850; 86900; 86901; 86920; 87077; 87086; 87186; 93005; 93306; 94640; 94760; 99285; J1650; J1940; P9016; Q9956; U0003; 97530-GP; 97535-GO; G0378

== ENCOUNTER 2020-06-21 10:34 | Inpatient (IN) | payer MEDICAID ==
[~2020-06-21] VITALS: Ht 162.6 cm; Wt 93.1 kg
[~2020-06-21 10:34] MED LIST changes: +ACET325T21 PO
--- NOTE | 2020-06-21 11:37 | RAD ---
Exam performed: One view chest. Indication: Reason: SYNCOPE / Spl. Instructions: / History: Date of Service: 06/21/2020 11:11 AM Comparison: None available. Single AP upright portable view chest findings: Cardiomediastinal silhouette is mildly enlarged. No acute infiltrates, effusion or pneumothorax is d etected. The bony structures are normal. Impression: No acute cardiopulmonary process is detected. Electronically signed by: Jackeline Rodriguez MD (06/21/2020 11:34 AM) [id number]
--- NOTE | 2020-06-21 11:59 | PHYS DOC ---
Past Medical History Past Medical History: Anxiety, Cancer, Constipation, Depression, High Cho lesterol, Hypertension, Hypothyroid, Seizure, Schizophrenia, UTI, Other Additional Past Medical Histor: MULTIPLE PERSONALITY DISORDER, INTELLECTUAL DISABILITIES Past Surgical History: Other Additional Past Surgical Histo: UNKNOWN SURGERY Smoking Status: Never Smoker Alcohol Use: None Drug Use: None General Adult EDM: Chief Complaint: SYNCOPE HPI: HPI: 60-year-old female presenting the emergency department today after having s yncopal episode. She was sitting in the bath when this happened. She did not fall or hit her head. She denies any nausea vomiting or coughs. She is feeling much better now. She denies chest pain shortness of breath unilateral leg swelling hemoptysis. Onset today. Location generalized. Duration once. No alleviating factors. Review of systems negative for chest pain shortness of breath abdominal pain vomiting fevers chills headache nuchal rigidity. Negative for rash. all other review of systems negative. ED course: 60-year-old female presenting with syncopal episode. EKG obtained and reviewed by myself shows sinus rhythm with a regular rate. ST segments congruent. Not suggestive of acute ischemia. Not suggestive of Brugada. QTC within normal limits. Not suggestive of WPW. Otherwise patient was afebrile with a normal heart rate. Initial blood pressure was within normal meds. CBC shows a leukopia. 1.8. She has had this in the past. Hemoglobin 8.2 which is chronic for her. Platelet count 84. Down from 138 previously but she has been in the 80s in April. Otherwise creatinine at baseline. Urinalysis not suggestive of infection. We will admit the patient for telemetry. Heart Score: Risk Factors: Risk Factors: DM, Current or recent (<one month) smoker, HTN, HLP, family history of CAD, obesity. Risk Scores: Score 0 - 3: 2.5% MACE over next 6 weeks - Discharge Home Score 4 - 6: 20.3% MACE over next 6 weeks - Admit for Clinical Observation Score 7 - 10: 72.7% MACE over next 6 weeks - Early Invasive Strategies Allergies: Allergies: Allergies Coded Allergies Type Severity Reaction Last Updated Verified haloperidol Allergy Intermediate 06/02/20 Yes iron dextran complex Allergy Intermediate 06/02/20 Yes I S O L A T I O N *CONTACT* Allergy Unknown 06/05/20 Yes Physical Exam: PE: Constitutional: Well developed, well nourished, no acute distress, non-toxic appearance. [] HENT: Normocephalic, atraumatic, bilateral external ears normal, oropharynx moist, no oral exudates, nose normal. [] Eyes: PERRLA, EOMI, conjunctiva normal, no discharge. [] Neck: Normal range of motion, no tenderness, supple, no stridor. [] Cardiovascular:Heart rate regular rhythm, no murmur [] Lungs & Thorax: Bilateral breath sounds clear to auscultation [] Abdomen: Bowel sounds normal, soft, no tenderness, no masses, no pulsatile masses. [] Skin: Warm, dry, no erythema, no rash. [] Back: No tenderness, no CVA tenderness. [] Extremities: No tenderness, no cyanosis, no clubbing, ROM intact, no edema. [] Neurologic: Mental status: Awake oriented and alert x3, baseline intellectual disabilities present. Cranial nerves: Extraocular movements intact, eyebrows katherine bilaterally, smile symmetric, uvula elevation nl, shoulder shrug intact bilaterally, tongue protrusion normal Clear speech. Sensation: equal and normal in all extremities Strength: 5/5 in upper and lower extremities bilaterally Psychologic: Affect normal, judgement normal, mood normal. [] Current Patient Data: Vital Signs: Vital Signs Date Time Temp Pulse Resp B/P (MAP) Pulse Ox O2 Delivery O2 Flow Rate FiO2 06/21/20 10:35 97.4 76 16 119/78 (92) 98 Room Air 97.4 EKG: EKG: [] Radiology/Procedures: Radiology/Procedures: [] Course & Med Decision Making: Course & Med Decision Making Pertinent Labs and Imaging studies reviewed. (See chart for details) [] Dragon Disclaimer: [employer] Disclaimer: This electronic medical record was generated, in whole or in part, using a voice recognition dictation system. Departure Departure Impression: Primary Impression: Syncope Disposition: 09 ADMITTED INPT THIS HOSP Admitting Physician: HIMS Condition: STABLE Referrals: CRISTINE ZARAGOZA MD (PCP) JUAN HILL MD Jun 21, 2020 11:59
--- NOTE | 2020-06-21 12:33 | RAD ---
ADDENDUM #1 PQRS Compliance Statement: One or more of the following individualized dose reduction techniques were utilized for this examinat ion: 1. Automated exposure control 2. Adjustment of the mA and/or kV according to patient size 3. Use of iterative reconstruction technique Electronically signed by: Jackeline Rodriguez MD (08/26/2020 9:38 AM) [facility] ORIGINAL REPORT Exam performed: CT scan of the head without contrast. Date of Service: 06/21/2020. Comparison: CT head without contrast from 06/02/2020. Clinical History: Dizziness and syncope. Technique: Helical acquisitions are obtained from the foramen magnum to the vertex without intravenou s administration of contrast. Findings: The ventricles are midline without evidence of dilatation. Normal sanford-white differentiation is maint ained. Mild atrophy is seen. There is no extra axial fluid collection, intraparenchymal hemorrhage or mass lesion. The visualized portions of the orbits, paranasal sinuses and the mastoid air cells saw ear clear. There is mild mucosal periosteal thickening in the left maxillary sinus. The calvarium is intact. Impression: Mild chronic left maxillary sinus disease. No acute intracranial process detected. Electronically signed by: Jackeline Rodriguez MD (06/21/2020 12:30 PM) [id number]
[2020-06-21 13:13] LABS: BASO % 1 % (0-3); EOS % 0 % (0-3); HEMATOCRIT 26.8 % (36.0-47.0); HEMOGLOBIN 8.2 g/dL (12.0-15.5); LYMPH # 0.5 x10^3/uL (1.0-4.8); LYMPH % 28 % (24-48); MEAN CORPUSCULAR HEMOGLOBIN 26 pg (25-35); MEAN CORPUSCULAR HGB CONC 30 g/dL (31-37); MEAN CORPUSCULAR VOLUME 84 fL (79-100); MONO # 0.3 x10^3/uL (0.0-1.1); MONO % 17 % (0-9); NEUT % 55 % (31-73); PLATELET COUNT 84 x10^3/uL (140-400); RED BLOOD COUNT 3.18 x10^6/uL (3.50-5.40); RED CELL DISTRIBUTION WIDTH 21.1 % (11.5-14.5)
[2020-06-21 13:20] LABS: CALCIUM 8.3 mg/dL (8.5-10.1); CREATININE 2.4 mg/dL (0.6-1.0); GFR 24.9; POTASSIUM 3.6 mmol/L (3.5-5.1)
[2020-06-21 13:25] LABS: ALBUMIN 1.7 g/dL (3.4-5.0); ALBUMIN/GLOBULIN RATIO 0.4 (1.0-1.7); TOTAL BILIRUBIN 0.3 mg/dL (0.2-1.0); TOTAL PROTEIN 6.1 g/dL (6.4-8.2)
[2020-06-21 13:26] LABS: WHITE BLOOD COUNT 1.8 x10^3/uL (4.0-11.0)
--- NOTE | 2020-06-21 14:32 | PDOC1 ---
History and Physical Date of Admission Date of Admission DATE: 06/21/20 TIME: 14:14 Identification/Chief Complaint Chief Complaint Syncope Source Source: Chart review, Patient History of Present Illness History of Present Illness Patient 60-year-old female with past medical history of intellectual disability, presents to the ER for evaluation of syncopal episode today. Patient is confused at baseline therefore very poor historian. Symptoms reportedly occurred while sitting in a bath chair. She did not fall or sustain any injuries, and feels she may have briefly lost consciousness. She was recently admitted on 06/02/2020 for similar symptoms. Upon my evaluation patient has no complaints except concerned that someone "stole her period". She denies any fever, chills, nausea, or shortness of breath. Imaging obtained in ER negative for any fractures or acute processes. Will admit patient for further evaluation and medical management. Past Medical History Cardiovascular: HTN, Hyperlipidemia Pulmonary: No pertinent hx CENTRAL NERVOUS SYSTEM: Other GI: Constipation, GERD Heme/Onc: No pertinent hx Hepatobiliary: No pertinent hx Psych: Anxiety, Depression, Schizophrenia Rheumatologic: No pertinent hx Infectious disease: No pertinent hx Renal/: Chronic renal insuff, UTI Endocrine: Hypothyroidism Past Surgical History Past Surgical History: No pertinent history Family History Family History: Family History Unknown Social History Smoke: No ALCOHOL: none Drugs: None Current Medications Current Medications Active Scripts Active Reported Combivent Respimat Inhal (Ipratropium/Albuterol Sulfate) 4 Gm Aer.w.adap 2 Inh IH QID Latuda (Lurasidone Hcl) 20 Mg Tablet 1 Tab PO DAILY 30 Days Zoloft (Sertraline Hcl) 25 Mg Tablet 1 Tab PO DAILY Nystatin 15 Gm Powder 1 Carmen TP PRN PRN 7 Days apply to affected area(s) Miralax (Polyethylene Glycol 3350) 17 Gm Powd.pack 1 Packet PO PRN Q24HRS PRN 2 Days dissolve in water Miralax (Polyethylene Glycol 3350) 17 Gm Powd.pack 1 Packet PO QMWF 2 Days dissolve in water Depakote Er (Divalproex Sodium) 500 Mg Tab.er.24h 3 Tab PO QHS Mylanta Maximum Strength Liq (Mag Hydrox/Aluminum Hyd/Simeth) 355 Ml Oral.susp 30 Ml PO PRN Q4HRS PRN Risperdal Consta (Risperidone Microspheres) 37.5 Mg/2 Ml Disp.syrin 50 Mg IM Q2WKS Topamax (Topiramate) 100 Mg Tablet 1 Tab PO BID Risperdal (Risperidone) 4 Mg Tablet 1 Tab PO BID Milk Of Magnesia (Magnesium Hydroxide) 400 Mg/5 Ml Oral.susp 30 Ml PO DAILY PRN Anti-Diarrhea (Loperamide Hcl) 2 Mg Tablet 2 Mg PO PRN Levothyroxine Sodium 75 Mcg Tablet 1 Tab PO DAILY Aspirin 81 Mg Tab.chew 1 Tab PO DAILY Allergies Allergies: Coded Allergies: haloperidol (Verified Allergy, Intermediate, 06/02/20) iron dextran complex (Verified Allergy, Intermediate, 06/02/20) I S O L A T I O N *CONTACT* (Verified Allergy, Unknown, 06/05/20) VRE ROS Review of System GENERAL: No history of weight change, weakness or fevers. SKIN: No bruising, hair changes or rashes. EYES: No blurred, double or loss of vision. NOSE AND THROAT: No history of nosebleeds, hoarseness or sore throat. HEART: Denies chest pain, denies palpitations. LUNGS: Denies cough, hemoptysis, wheezing or shortness of breath. GASTROINTESTINAL: Denies nausea, vomiting, abdominal pain. GENITOURINARY: Denies dysuria, frequency, urgency, hematuria. NEUROLOGIC: Denies history of numbness, tingling, tremor or weakness. PSYCHIATRIC: Denies anxiety, denies depression. ENDOCRINE: No history of heat or cold intolerance, polyuria or polydipsia. EXTREMITIES: Denies muscle weakness, joint pain, pain on walking or stiffness. Physical Exam Physical Exam General: Alert, Cooperative, No acute distress. Obese. HEENT: PERRLA, EOMI Lungs: Clear to auscultation, Normal air movement Heart: RRR, no murmurs Cardiovascular: S1, S2 Abdomen: Normal bowel sounds, Soft, No tenderness Extremities: No clubbing, No cyanosis Skin: No rashes, No significant lesion Neuro: Normal speech, Normal tone, Sensation intact Psych/Mental Status: Confused. Mental status NL Vitals Vitals Vital Signs Date Time Temp Pulse Resp B/P (MAP) Pulse Ox O2 Delivery O2 Flow Rate FiO2 06/21/20 10:35 97.4 76 16 119/78 (92) 98 Room Air 97.4 Labs Labs Laboratory Tests Test 06/21/20 13:00 White Blood Count 1.8 x10^3/uL (4.0-11.0) Red Blood Count 3.18 x10^6/uL (3.50-5.40) Hemoglobin 8.2 g/dL (12.0-15.5) Hematocrit 26.8 % (36.0-47.0) Mean Corpuscular Volume 84 fL (79-100) Mean Corpuscular Hemoglobin 26 pg (25-35) Mean Corpuscular Hemoglobin Concent 30 g/dL (31-37) Red Cell Distribution Width 21.1 % (11.5-14.5) Platelet Count 84 x10^3/uL (140-400) Neutrophils (%) (Auto) 55 % (31-73) Lymphocytes (%) (Auto) 28 % (24-48) Monocytes (%) (Auto) 17 % (0-9) Eosinophils (%) (Auto) 0 % (0-3) Basophils (%) (Auto) 1 % (0-3) Neutrophils # (Auto) 1.0 x10^3/uL (1.8-7.7) Lymphocytes # (Auto) 0.5 x10^3/uL (1.0-4.8) Monocytes # (Auto) 0.3 x10^3/uL (0.0-1.1) Eosinophils # (Auto) 0.0 x10^3/uL (0.0-0.7) Basophils # (Auto) 0.0 x10^3/uL (0.0-0.2) Sodium Level 144 mmol/L (136-145) Potassium Level 3.6 mmol/L (3.5-5.1) Chloride Level 109 mmol/L (98-107) Carbon Dioxide Level 26 mmol/L (21-32) Anion Gap 9 (6-14) Blood Urea Nitrogen 17 mg/dL (7-20) Creatinine 2.4 mg/dL (0.6-1.0) Estimated GFR (Cockcroft-Gault) 24.9 BUN/Creatinine Ratio 7 (6-20) Glucose Level 75 mg/dL (70-99) Calcium Level 8.3 mg/dL (8.5-10.1) Magnesium Level 2.0 mg/dL (1.8-2.4) Total Bilirubin 0.3 mg/dL (0.2-1.0) Aspartate Amino Transf (AST/SGOT) 15 U/L (15-37) Alanine Aminotransferase (ALT/SGPT) 7 U/L (14-59) Alkaline Phosphatase 49 U/L (46-116) Troponin I Quantitative 0.023 ng/mL (0.000-0.055) Total Protein 6.1 g/dL (6.4-8.2) Albumin 1.7 g/dL (3.4-5.0) Albumin/Globulin Ratio 0.4 (1.0-1.7) Laboratory Tests Test 06/21/20 13:00 White Blood Count 1.8 x10^3/uL (4.0-11.0) Red Blood Count 3.18 x10^6/uL (3.50-5.40) Hemoglobin 8.2 g/dL (12.0-15.5) Hematocrit 26.8 % (36.0-47.0) Mean Corpuscular Volume 84 fL (79-100) Mean Corpuscular Hemoglobin 26 pg (25-35) Mean Corpuscular Hemoglobin Concent 30 g/dL (31-37) Red Cell Distribution Width 21.1 % (11.5-14.5) Platelet Count 84 x10^3/uL (140-400) Neutrophils (%) (Auto) 55 % (31-73) Lymphocytes (%) (Auto) 28 % (24-48) Monocytes (%) (Auto) 17 % (0-9) Eosinophils (%) (Auto) 0 % (0-3) Basophils (%) (Auto) 1 % (0-3) Neutrophils # (Auto) 1.0 x10^3/uL (1.8-7.7) Lymphocytes # (Auto) 0.5 x10^3/uL (1.0-4.8) Monocytes # (Auto) 0.3 x10^3/uL (0.0-1.1) Eosinophils # (Auto) 0.0 x10^3/uL (0.0-0.7) Basophils # (Auto) 0.0 x10^3/uL (0.0-0.2) Sodium Level 144 mmol/L (136-145) Potassium Level 3.6 mmol/L (3.5-5.1) Chloride Level 109 mmol/L (98-107) Carbon Dioxide Level 26 mmol/L (21-32) Anion Gap 9 (6-14) Blood Urea Nitrogen 17 mg/dL (7-20) Creatinine 2.4 mg/dL (0.6-1.0) Estimated GFR (Cockcroft-Gault) 24.9 BUN/Creatinine Ratio 7 (6-20) Glucose Level 75 mg/dL (70-99) Calcium Level 8.3 mg/dL (8.5-10.1) Magnesium Level 2.0 mg/dL (1.8-2.4) Total Bilirubin 0.3 mg/dL (0.2-1.0) Aspartate Amino Transf (AST/SGOT) 15 U/L (15-37) Alanine Aminotransferase (ALT/SGPT) 7 U/L (14-59) Alkaline Phosphatase 49 U/L (46-116) Troponin I Quantitative 0.023 ng/mL (0.000-0.055) Total Protein 6.1 g/dL (6.4-8.2) Albumin 1.7 g/dL (3.4-5.0) Albumin/Globulin Ratio 0.4 (1.0-1.7) Images Images Exam performed: CT scan of the head without contrast. Date of Service: 06/21/2020. Comparison: CT head without contrast from 06/02/2020. Clinical History: Dizziness and syncope. Technique: Helical acquisitions are obtained from the foramen magnum to the vertex without intravenous administration of contrast. Findings: The ventricles are midline without evidence of dilatation. Normal sanford-white differentiation is maintained. Mild atrophy is seen. There is no extra axial fluid collection, intraparenchymal hemorrhage or mass lesion. The visualized portions of the orbits, paranasal sinuses and the mastoid air cells appear clear. There is mild mucosal periosteal thickening in the left maxillary sinus. The calvarium is intact. Impression: Mild chronic left maxillary sinus disease. No acute intracranial process detected. Exam performed: One view chest. Indication: Reason: SYNCOPE / Spl. Instructions: / History: Date of Service: 06/21/2020 11:11 AM Comparison: None available. Single AP upright portable view chest findings: Cardiomediastinal silhouette is mildly enlarged. No acute infiltrates, effusion or pneumothorax is detected. The bony structures are normal. Impression: No acute cardiopulmonary process is detected. VTE Prophylaxis Ordered VTE Prophylaxis Devices: No VTE Pharmacological Prophylaxi: Yes Assessment/Plan Assessment/Plan Syncope Pancytopenia Chronic renal insufficiency Severe malnutrition Plan: Will obtain orthostatic vitals Echocardiogram from 06/03/20 shows normal left size, normal left jugular function, ejection fraction 60-65%, mild concentric left ventricular hypertrophy. No significant aortic valvular stenosis, PAP estimated at 25 mmHg. Consultations placed to cardiology, appreciate any further recommendations Obtain orthostatic vitals Provide IV hydration Suspect etiology vasovagal syncope Resume home medications Pancytopenia - similar from previous admission, unclear etiology and duration; continue to monitor. Will consult Hem/Onc if necessary, or this may be worked up as outpatient. FEN - Cardiac diet PPX - Lovenox FULL CODE Dispo - inpatient for above Justifications for Admission Other Justification Syncope KRISS NOVA MD Jun 21, 2020 14:32
[2020-06-21] MEDS ORDERED: ONDANSETRON PF 4 MG/2 ML VIAL. IVP PRN (14:45)
[2020-06-21] MEDS ORDERED: MAGNESIUM HYDROXIDE 2,400 MG/30 ML ORAL.SUSP. PO PRN (14:45)
[2020-06-21] MEDS ORDERED: BISACODYL 10 MG SUPP.RECT. PR PRN (14:45)
[2020-06-21 14:54] LABS: % BANDS 1 % (0-9); % LYMPHS 38 % (24-48); % MONOS 11 % (0-10); % SEGS 50 % (35-66); ANISOCYTOSIS MOD; HYPOCHROMIA SLIGHT; PLT ESTIMATE DECREASED (ADEQUATE); POLYCHROMASIA SLIGHT
[2020-06-21 16:36] LABS: BILIRUBIN,URINE NEGATIVE (NEG); CLARITY,URINE CLEAR; COLOR,URINE YELLOW; NITRITE,URINE NEGATIVE (NEG); PH,URINE 5.5 (<5.0-8.0); PROTEIN,URINE 100 mg/dL (NEG-TRACE)
[2020-06-21 16:45] LABS: BACTERIA,URINE 0 /HPF (0-FEW); WBC,URINE RARE /HPF (0-4)
[2020-06-21 16:46] LABS: AMORPHOUS SEDIMENT,UR PRESENT /HPF
[2020-06-21 17:58] VITALS: BP 126/78
[2020-06-21] MEDS: IV NORMAL SALINE 1000ML BAG 1,000 ML IV SCH (18:36)
[2020-06-21] MEDS: ENOXAPARIN 30 MG/0.3 ML SYRINGE. SQ SCH (18:36)
[2020-06-21 19:00] VITALS: BP 150/64
[2020-06-21] MEDS ORDERED: CEPH500C PO (20:25)
[2020-06-21] MEDS ORDERED: ENOX30DI SQ (20:25)
[2020-06-21] MEDS ORDERED: APIX5TAB PO (20:25)
[2020-06-21] MEDS ORDERED: ONDA4TAB7 PO (20:25)
[2020-06-21 23:00] VITALS: BP 118/88
[2020-06-22 03:00] VITALS: BP 154/62
[2020-06-22 07:00] VITALS: BP 142/66
[2020-06-22 08:05] LABS: BASO % 1 % (0-3); EOS % 0 % (0-3); HEMATOCRIT 24.4 % (36.0-47.0); HEMOGLOBIN 7.5 g/dL (12.0-15.5); LYMPH # 0.6 x10^3/uL (1.0-4.8); LYMPH % 44 % (24-48); MEAN CORPUSCULAR HEMOGLOBIN 26 pg (25-35); MEAN CORPUSCULAR HGB CONC 31 g/dL (31-37); MEAN CORPUSCULAR VOLUME 84 fL (79-100); MONO # 0.2 x10^3/uL (0.0-1.1); MONO % 15 % (0-9); NEUT # 0.6 x10^3/uL (1.8-7.7); NEUT % 41 % (31-73); PLATELET COUNT 74 x10^3/uL (140-400); RED BLOOD COUNT 2.92 x10^6/uL (3.50-5.40)
[2020-06-22 08:13] LABS: WHITE BLOOD COUNT 1.4 x10^3/uL (4.0-11.0)
--- NOTE | 2020-06-22 08:29 | PDOC ---
[facility] PROGRESS NOTE Date of Service DOS: DATE: 06/22/20 TIME: 08:24 Chief Complaint Chief Complaint A/P: Syncope AURA on chronic kidney disease which seems to be at baseline stage IIIb at least Leukopenia which is chronic as well Normocytic anemia of chronic inflammation most likely patient does not give history of active bleeding no hematemesis no black tarry stools have been reported we will send guaiac for completion Thrombocytopenia with no signs of active bleeding Vasomotor nephropathy Dehydration Severe malnutrition. Bedridden status as per patient Syncope Pancytopenia Chronic renal insufficiency Severe malnutrition History of Present Illness History of Present Illness Ms Guzman is a 60-year-old female presenting with syncopal episode. EKG obtained and reviewed by myself shows sinus rhythm with a regular rate. ST segments congruent. Not suggestive of acute ischemia. Not suggestive of Brugada. QTC within normal limits. Not suggestive of WPW. Otherwise patient was afebrile with a normal heart rate. Initial blood pressure was within normal meds. CBC shows a WBC 1.8. She has had this in the past. Hemoglobin 8.2 which is chronic for her. Platelet count 84. Down from 138 previously but she has been in the 80s in April. Otherwise creatinine at baseline. Urinalysis not suggestive of infection. Admitted the patient for telemetry. Labs relatively unchanged. Afebrile. She is c/o nausea currently as well as dry nares. No CP or SOB. No further syncope. Prior echo reviewed with no significant aortic stenosis but with LVH, normal range EF. Vitals/I&O Vitals/I&O: Vital Signs Date Time Temp Pulse Resp B/P (MAP) Pulse Ox O2 Delivery O2 Flow Rate FiO2 06/22/20 03:00 97.7 78 18 154/62 (92) 98 Room Air 97.7 I & O 06/21/20 06/21/20 06/22/20 15:00 23:00 07:00 Intake Total 400 ml 240 ml Balance 400 ml 240 ml Physical Exam Lungs: Clear, Wheezing Labs Labs: Laboratory Tests Test 06/21/20 13:00 06/21/20 16:30 06/22/20 06:50 White Blood Count 1.8 x10^3/uL (4.0-11.0) 1.4 x10^3/uL (4.0-11.0) Red Blood Count 3.18 x10^6/uL (3.50-5.40) 2.92 x10^6/uL (3.50-5.40) Hemoglobin 8.2 g/dL (12.0-15.5) 7.5 g/dL (12.0-15.5) Hematocrit 26.8 % (36.0-47.0) 24.4 % (36.0-47.0) Mean Corpuscular Volume 84 fL (79-100) 84 fL (79-100) Mean Corpuscular Hemoglobin 26 pg (25-35) 26 pg (25-35) Mean Corpuscular Hemoglobin Concent 30 g/dL (31-37) 31 g/dL (31-37) Red Cell Distribution Width 21.1 % (11.5-14.5) 21.0 % (11.5-14.5) Platelet Count 84 x10^3/uL (140-400) 74 x10^3/uL (140-400) Neutrophils (%) (Auto) 55 % (31-73) 41 % (31-73) Lymphocytes (%) (Auto) 28 % (24-48) 44 % (24-48) Monocytes (%) (Auto) 17 % (0-9) 15 % (0-9) Eosinophils (%) (Auto) 0 % (0-3) 0 % (0-3) Basophils (%) (Auto) 1 % (0-3) 1 % (0-3) Neutrophils # (Auto) 1.0 x10^3/uL (1.8-7.7) 0.6 x10^3/uL (1.8-7.7) Lymphocytes # (Auto) 0.5 x10^3/uL (1.0-4.8) 0.6 x10^3/uL (1.0-4.8) Monocytes # (Auto) 0.3 x10^3/uL (0.0-1.1) 0.2 x10^3/uL (0.0-1.1) Eosinophils # (Auto) 0.0 x10^3/uL (0.0-0.7) 0.0 x10^3/uL (0.0-0.7) Basophils # (Auto) 0.0 x10^3/uL (0.0-0.2) 0.0 x10^3/uL (0.0-0.2) Segmented Neutrophils % 50 % (35-66) Band Neutrophils % 1 % (0-9) Lymphocytes % 38 % (24-48) Monocytes % 11 % (0-10) Platelet Estimate Decreased (ADEQUATE) Polychromasia Slight Hypochromasia Slight Anisocytosis Mod Sodium Level 144 mmol/L (136-145) Potassium Level 3.6 mmol/L (3.5-5.1) Chloride Level 109 mmol/L (98-107) Carbon Dioxide Level 26 mmol/L (21-32) Anion Gap 9 (6-14) Blood Urea Nitrogen 17 mg/dL (7-20) Creatinine 2.4 mg/dL (0.6-1.0) Estimated GFR (Cockcroft-Gault) 24.9 BUN/Creatinine Ratio 7 (6-20) Glucose Level 75 mg/dL (70-99) Calcium Level 8.3 mg/dL (8.5-10.1) Magnesium Level 2.0 mg/dL (1.8-2.4) Total Bilirubin 0.3 mg/dL (0.2-1.0) Aspartate Amino Transf (AST/SGOT) 15 U/L (15-37) Alanine Aminotransferase (ALT/SGPT) 7 U/L (14-59) Alkaline Phosphatase 49 U/L (46-116) Troponin I Quantitative 0.023 ng/mL (0.000-0.055) Total Protein 6.1 g/dL (6.4-8.2) Albumin 1.7 g/dL (3.4-5.0) Albumin/Globulin Ratio 0.4 (1.0-1.7) Procalcitonin < 0.10 ng/mL (0.00-0.10) Urine Collection Type U cath Urine Color Yellow Urine Clarity Clear Urine pH 5.5 (<5.0-8.0) Urine Specific [place] 1.015 (1.000-1.030) Urine Protein 100 mg/dL (NEG-TRACE) Urine Glucose (UA) Negative mg/dL (NEG) Urine Ketones (Stick) Negative mg/dL (NEG) Urine Blood Trace (NEG) Urine Nitrite Negative (NEG) Urine Bilirubin Negative (NEG) Urine Urobilinogen Dipstick 1.0 mg/dL (0.2 mg/dL) Urine Leukocyte Esterase Negative (NEG) Urine RBC 1-2 /HPF (0-2) Urine WBC Rare /HPF (0-4) Urine Squamous Epithelial Cells Few /LPF Urine Amorphous Sediment Present /HPF Urine Bacteria 0 /HPF (0-FEW) Urine Mucus Slight /LPF Comment Review of Relevant I have reviewed the following items bianca (where applicable) has been applied. Medications: Current Medications Medications (Trade) Dose Ordered Sig/Horace Route PRN Reason Start Time Stop Time Status Last Admin Dose Admin Sodium Chloride 1,000 ml @ 75 mls/hr [id number] IV 06/21/20 14:45 06/21/20 18:36 Enoxaparin Sodium (Lovenox 30mg Syringe) 30 mg Q24H SQ 06/21/20 15:00 06/21/20 18:36 Justifications for Admission Other Justification Syncope GEOVANNA GRIFFIN MD Jun 22, 2020 08:29
[2020-06-22] MEDS ORDERED: POLYETHYLENE GLYCOL 3350 17 GM PACKET. PO PRN (08:30)
[2020-06-22] MEDS ORDERED: MAG HYDROX/ALUMINUM HYD/SIMETH 30 ML ORAL.SUSP PO PRN (08:30)
[2020-06-22 09:22] LABS: CALCIUM 7.6 mg/dL (8.5-10.1); GFR 30.8; POTASSIUM 3.9 mmol/L (3.5-5.1)
[2020-06-22] MEDS: LEVOTHYROXINE 75 MCG TABLET PO SCH (10:10)
[2020-06-22] MEDS: LURASIDONE 40 MG TABLET. PO SCH (10:11)
[2020-06-22] MEDS: SERTRALINE 25 MG TABLET. PO SCH (10:12)
[2020-06-22] MEDS: TOPIRAMATE 100 MG TABLET. PO SCH ×2 (10:12→20:53)
[2020-06-22] MEDS: IV NORMAL SALINE 1000ML BAG 1,000 ML IV SCH ×2 (10:14→20:55)
[2020-06-22 11:00] VITALS: BP 158/67
[2020-06-22] MEDS ORDERED: SODIUM CHL/ALOE VERA NASAL GEL 14.1GM TUBE. NS PRN (12:00)
[2020-06-22] MEDS: risperiDONE 1 MG TABLET. PO SCH ×2 (14:05→20:54)
[2020-06-22] MEDS: ENOXAPARIN 30 MG/0.3 ML SYRINGE. SQ SCH (14:05)
[2020-06-22 15:00] VITALS: BP 138/62
[2020-06-22 19:00] VITALS: BP 115/70
[2020-06-22] MEDS: DIVALPROEX EXTENDED RELEASE 500 MG TAB.ER.24H. PO SCH (20:53)
[2020-06-22] MEDS: FLUTICASONE 50MCG/NASAL SPRAY 16GM BOTTLE. NS SCH (20:55)
[2020-06-22 23:00] VITALS: BP 104/43
[2020-06-23] MEDS: LEVOTHYROXINE 75 MCG TABLET PO SCH (06:20)
[2020-06-23 07:00] VITALS: BP 150/67
[2020-06-23 07:37] LABS: CALCIUM 8.1 mg/dL (8.5-10.1); CREATININE 1.6 mg/dL (0.6-1.0); GFR 39.8; POTASSIUM 4.4 mmol/L (3.5-5.1)
--- NOTE | 2020-06-23 07:40 | EKG ---
[facility] [address] [place] [address] Test Date: 2020-06-21 Test Time: 10:41:21 Pat Name: AVI VILLEGAS Department: Room: Gender: F [employer] Wirer: : 1960 Requested By: JUAN HILL Order Number: [id number] Reading MD: Measurements Intervals [place] Rate: 95 P: 55 [place]: 118 QRS: 63 QRSD: 76 T: 30 QT: 374 QTc: 473 Interpretive Statements SINUS RHYTHM LEFT ATRIAL ABNORMALITY QRS(T) CONTOUR ABNORMALITY CONSISTENT WITH ANTEROSEPTAL INFARCT AGE UNDETERMINED ABNORMAL ECG RI6.01 No previous ECG available for comparison
--- NOTE | 2020-06-23 08:40 | PDOC ---
PROGRESS NOTES Date of Service: DATE: 06/23/20 TIME: 08:37 Chief Complaint Chief Complaint impression Syncope, now on tele neurochecks q 4 hrs, cardiology consult06-23T//Ejection Fraction is 60-65%. recent echo AURA on chronic kidney disease which seems to be at baseline stage IIIb at least trend renal fx Leukopenia which is chronic Normocytic anemia of chronic inflammation most likely patient does not give history of active bleeding no hematemesis no black tarry stools have been reported we will send guaiac for completion Thrombocytopenia with no signs of active bleeding Vasomotor nephropathy, improving with fluid hydration Dehydration Severe malnutrition. Bedridden status as per patient Pancytopenia Chronic renal insufficiency Severe protein-caloric malnutrition new onset atrial flutter, 06-23 , hyperchloremia, hypernatremia, needs hypotonic saline cardiology consult 06/23, tsh D/W RN History of Present Illness History of Present Illness Ms Guzman is a 60-year-old female presenting with syncopal episode. EKG obtained and reviewed by myself shows sinus rhythm with a regular rate. ST segments congruent. Not suggestive of acute ischemia. Not suggestive of Brugada. QTC within normal limits. Not suggestive of WPW. Otherwise patient was afebrile with a normal heart rate. Initial blood pressure was within normal meds. CBC shows a WBC 1.8. She has had this in the past. Hemoglobin 8.2 which is chronic for her. Platelet count 84. Down from 138 previously but she has been in the 80s in April. Otherwise creatinine at baseline. Urinalysis not suggestive of infection. Admitted the patient for telemetry. noted to be in a flutter 06/23, cards consulted Labs relatively unchanged. Afebrile. She is c/o nausea currently as well as dry nares. No CP or SOB. No further syncope. Prior echo reviewed with no significant aortic stenosis but with LVH, normal range EF., new onset a fultter 1 Vitals Vitals Vital Signs Date Time Temp Pulse Resp B/P (MAP) Pulse Ox O2 Delivery O2 Flow Rate FiO2 06/23/20 07:00 97.4 92 18 150/67 (94) 90 Room Air 97.4 Physical Exam Physical Exam Physical Exam General: Alert, Cooperative, No acute distress. Obese. HEENT: PERRLA, EOMI Lungs: Clear to auscultation, Normal air movement Heart: RRR, no murmurs Cardiovascular: irrr Abdomen: Normal bowel sounds, Soft, No tenderness Extremities: No clubbing, No cyanosis Skin: No rashes, No significant lesion Neuro: Normal speech, Normal tone, Sensation intact Psych/Mental Status: Confused. Mental status NL General: Alert, Oriented X3, Cooperative, No acute distress Lungs: Clear, Wheezing Abdomen: Normal bowel sounds, Soft Extremities: No cyanosis Labs LABS MITRAL VALVE The mitral valve is calcified but opens well. Mitral annular calcification is mild. There is no evidence of mitral valve prolapse. There is no mitral valve stenosis. Doppler and Color Flow revealed no mitral valve regurgitation noted. TRICUSPID VALVE The tricuspid valve is normal in structure and function. Doppler and Color Flow revealed trace tricuspid regurgitation. The PA pressure was estimated at 25 mm Hg. There is no tricuspid valve stenosis. PULMONIC VALVE The pulmonic valve is not well visualized. Doppler and Color Flow revealed no pulmonic valvular regurgitation. There is no pulmonic valvular stenosis. GREAT VESSELS The aortic root is normal in size. The ascending aorta is not well seen. The IVC is normal in size and collapses >50% with inspiration. PERICARDIAL EFFUSION There is a trace circumferential pericardial effusion with no hemodynamic significance. Critical Notification Critical Value: No <Conclusion> The left ventricle is normal size. The left ventricular systolic function is normal and the ejection fraction is within normal range. The Ejection Fraction is 60-65%. There is mild concentric left ventricular hypertrophy. Doppler and Color Flow revealed no significant aortic regurgitation. There is no significant aortic valvular stenosis. Doppler and Color Flow revealed no mitral valve regurgitation noted. Doppler and Color Flow revealed trace tricuspid regurgitation. The PA pressure was estimated at 25 mmHg. Signed by : Rika Macias MD Electronically Approved : 06/03/2020 16:54:02 DICTATED and SIGNED BY: RIKA MACIAS MD DATE: 06/03/20 [id number] 0 Exam performed: CT scan of the head without contrast. Date of Service: 06/21/2020. Comparison: CT head without contrast from 06/02/2020. Clinical History: Dizziness and syncope. Technique: Helical acquisitions are obtained from the foramen magnum to the vertex without intravenous administration of contrast. Findings: The ventricles are midline without evidence of dilatation. Normal sanford-white differentiation is maintained. Mild atrophy is seen. There is no extra axial fluid collection, intraparenchymal hemorrhage or mass lesion. The visualized portions of the orbits, paranasal sinuses and the mastoid air cells appear clear. There is mild mucosal periosteal thickening in the left maxillary sinus. The calvarium is intact. Impression: Mild chronic left maxillary sinus disease. No acute intracranial process detected. Electronically signed by: Shorty Rodriguez MD (06/21/2020 12:30 PM) [id number] DICTATED and SIGNED BY: SHORTY RODRIGUEZ MD Laboratory Tests Test 06/23/20 06:40 Sodium Level 146 mmol/L (136-145) Potassium Level 4.4 mmol/L (3.5-5.1) Chloride Level 114 mmol/L (98-107) Carbon Dioxide Level 27 mmol/L (21-32) Anion Gap 5 (6-14) Blood Urea Nitrogen 12 mg/dL (7-20) Creatinine 1.6 mg/dL (0.6-1.0) Estimated GFR (Cockcroft-Gault) 39.8 Glucose Level 79 mg/dL (70-99) Calcium Level 8.1 mg/dL (8.5-10.1) Comment Review of Relevant I have reviewed the following items bianca (where applicable) has been applied. Labs Laboratory Tests Test 06/21/20 13:00 06/21/20 16:30 06/22/20 06:50 06/23/20 06:40 White Blood Count 1.8 x10^3/uL (4.0-11.0) 1.4 x10^3/uL (4.0-11.0) Red Blood Count 3.18 x10^6/uL (3.50-5.40) 2.92 x10^6/uL (3.50-5.40) Hemoglobin 8.2 g/dL (12.0-15.5) 7.5 g/dL (12.0-15.5) Hematocrit 26.8 % (36.0-47.0) 24.4 % (36.0-47.0) Mean Corpuscular Volume 84 fL (79-100) 84 fL (79-100) Mean Corpuscular Hemoglobin 26 pg (25-35) 26 pg (25-35) Mean Corpuscular Hemoglobin Concent 30 g/dL (31-37) 31 g/dL (31-37) Red Cell Distribution Width 21.1 % (11.5-14.5) 21.0 % (11.5-14.5) Platelet Count 84 x10^3/uL (140-400) 74 x10^3/uL (140-400) Neutrophils (%) (Auto) 55 % (31-73) 41 % (31-73) Lymphocytes (%) (Auto) 28 % (24-48) 44 % (24-48) Monocytes (%) (Auto) 17 % (0-9) 15 % (0-9) Eosinophils (%) (Auto) 0 % (0-3) 0 % (0-3) Basophils (%) (Auto) 1 % (0-3) 1 % (0-3) Neutrophils # (Auto) 1.0 x10^3/uL (1.8-7.7) 0.6 x10^3/uL (1.8-7.7) Lymphocytes # (Auto) 0.5 x10^3/uL (1.0-4.8) 0.6 x10^3/uL (1.0-4.8) Monocytes # (Auto) 0.3 x10^3/uL (0.0-1.1) 0.2 x10^3/uL (0.0-1.1) Eosinophils # (Auto) 0.0 x10^3/uL (0.0-0.7) 0.0 x10^3/uL (0.0-0.7) Basophils # (Auto) 0.0 x10^3/uL (0.0-0.2) 0.0 x10^3/uL (0.0-0.2) Segmented Neutrophils % 50 % (35-66) Band Neutrophils % 1 % (0-9) Lymphocytes % 38 % (24-48) Monocytes % 11 % (0-10) Platelet Estimate Decreased (ADEQUATE) Polychromasia Slight Hypochromasia Slight Anisocytosis Mod Sodium Level 144 mmol/L (136-145) 147 mmol/L (136-145) 146 mmol/L (136-145) Potassium Level 3.6 mmol/L (3.5-5.1) 3.9 mmol/L (3.5-5.1) 4.4 mmol/L (3.5-5.1) Chloride Level 109 mmol/L (98-107) 113 mmol/L (98-107) 114 mmol/L (98-107) Carbon Dioxide Level 26 mmol/L (21-32) 28 mmol/L (21-32) 27 mmol/L (21-32) Anion Gap 9 (6-14) 6 (6-14) 5 (6-14) Blood Urea Nitrogen 17 mg/dL (7-20) 15 mg/dL (7-20) 12 mg/dL (7-20) Creatinine 2.4 mg/dL (0.6-1.0) 2.0 mg/dL (0.6-1.0) 1.6 mg/dL (0.6-1.0) Estimated GFR (Cockcroft-Gault) 24.9 30.8 39.8 BUN/Creatinine Ratio 7 (6-20) Glucose Level 75 mg/dL (70-99) 83 mg/dL (70-99) 79 mg/dL (70-99) Calcium Level 8.3 mg/dL (8.5-10.1) 7.6 mg/dL (8.5-10.1) 8.1 mg/dL (8.5-10.1) Magnesium Level 2.0 mg/dL (1.8-2.4) Total Bilirubin 0.3 mg/dL (0.2-1.0) Aspartate Amino Transf (AST/SGOT) 15 U/L (15-37) Alanine Aminotransferase (ALT/SGPT) 7 U/L (14-59) Alkaline Phosphatase 49 U/L (46-116) Troponin I Quantitative 0.023 ng/mL (0.000-0.055) Total Protein 6.1 g/dL (6.4-8.2) Albumin 1.7 g/dL (3.4-5.0) Albumin/Globulin Ratio 0.4 (1.0-1.7) Procalcitonin < 0.10 ng/mL (0.00-0.10) Urine Collection Type U cath Urine Color Yellow Urine Clarity Clear Urine pH 5.5 (<5.0-8.0) Urine Specific [place] 1.015 (1.000-1.030) Urine Protein 100 mg/dL (NEG-TRACE) Urine Glucose (UA) Negative mg/dL (NEG) Urine Ketones (Stick) Negative mg/dL (NEG) Urine Blood Trace (NEG) Urine Nitrite Negative (NEG) Urine Bilirubin Negative (NEG) Urine Urobilinogen Dipstick 1.0 mg/dL (0.2 mg/dL) Urine Leukocyte Esterase Negative (NEG) Urine RBC 1-2 /HPF (0-2) Urine WBC Rare /HPF (0-4) Urine Squamous Epithelial Cells Few /LPF Urine Amorphous Sediment Present /HPF Urine Bacteria 0 /HPF (0-FEW) Urine Mucus Slight /LPF Laboratory Tests Test 06/23/20 06:40 Sodium Level 146 mmol/L (136-145) Potassium Level 4.4 mmol/L (3.5-5.1) Chloride Level 114 mmol/L (98-107) Carbon Dioxide Level 27 mmol/L (21-32) Anion Gap 5 (6-14) Blood Urea Nitrogen 12 mg/dL (7-20) Creatinine 1.6 mg/dL (0.6-1.0) Estimated GFR (Cockcroft-Gault) 39.8 Glucose Level 79 mg/dL (70-99) Calcium Level 8.1 mg/dL (8.5-10.1) Medications Current Medications Sodium Chloride 1,000 ml @ 75 mls/hr [id number] IV Last administered on 06/22/20at 20:55; Start 06/21/20 at 14:45 Ondansetron HCl (Zofran) 4 mg PRN Q6HRS PRN IVP NAUSEA/VOMITING Last administered on 06/22/20at 12:34; Start 06/21/20 at 14:45 Acetaminophen (Tylenol) 650 mg PRN Q6HRS PRN PO Headaches, Temp > 101.5F; Start 06/21/20 at 14:45 Magnesium Hydroxide (Milk Of Magnesia) 2,400 mg PRN Q12HR PRN PO CONSTIPATION; Start 06/21/20 at 14:45 Bisacodyl (Dulcolax Supp) 10 mg PRN DAILY PRN [place] CONSTIPATION; Start 06/21/20 at 14:45 Enoxaparin Sodium (Lovenox 30mg Syringe) 30 mg Q24H SQ Last administered on 06/22/20at 14:05; Start 06/21/20 at 15:00 Divalproex Sodium (Depakote Er) 1,500 mg QHS PO Last administered on 06/22/20at 20:53; Start 06/22/20 at 21:00 Levothyroxine Sodium (Synthroid) 75 mcg DAILY06 PO Last administered on 06/23/20at 06:20; Start 06/22/20 at 10:30 Al Hydroxide/Mg Hydroxide (Mylanta Plus Xs) 30 ml PRN Q4HRS PRN PO HEARTBURN / GAS; Start 06/22/20 at 08:30 Polyethylene Glycol (miraLAX PACKET) 17 gm PRN Q24HRS PRN PO CONSTIPATION; Start 06/22/20 at 08:30 Sertraline HCl (Zoloft) 25 mg DAILY PO Last administered on 06/22/20at 10:12; Start 06/22/20 at 09:00 Topiramate (Topamax) 100 mg BID PO Last administered on 06/22/20at 20:53; Start 06/22/20 at 09:00 Lurasidone HCl (Latuda) 20 mg DAILYWBKFT PO Last administered on 06/22/20at 10:11; Start 06/22/20 at 09:00 Risperidone (RisperDAL) 4 mg BID PO Last administered on 06/22/20at 20:54; Start 06/22/20 at 09:00 Sodium Chloride ([place] Saline Nasal) 1 carmen PRN DAILY PRN NS NASAL CONGESTION; Start 06/22/20 at 12:00 Fluticasone Propionate (Flonase) 2 spray QHS NS Last administered on 06/22/20at 20:55; Start 06/22/20 at 21:00 Active Scripts Active Reported Zofran (Ondansetron Hcl) 4 Mg Tablet 1 Tab PO Q6HRS Cephalexin 500 Mg Capsule 1 Cap PO QID Lovenox (Enoxaparin Sodium) 30 Mg/0.3 Ml Disp.syrin 30 Mg SQ BID Eliquis (Apixaban) 5 Mg Tablet 5 Mg PO DAILY Acetaminophen 325 Mg Tablet 650 Mg PO PRN Q6HRS PRN Combivent Respimat Inhal (Ipratropium/Albuterol Sulfate) 4 Gm Aer.w.adap 2 Inh IH QID Latuda (Lurasidone Hcl) 20 Mg Tablet 1 Tab PO DAILY 30 Days Zoloft (Sertraline Hcl) 25 Mg Tablet 1 Tab PO DAILY Nystatin 15 Gm Powder 1 Carmen TP PRN PRN 7 Days apply to affected area(s) Miralax (Polyethylene Glycol 3350) 17 Gm Powd.pack 1 Packet PO PRN Q24HRS PRN 2 Days dissolve in water Miralax (Polyethylene Glycol 3350) 17 Gm Powd.pack 1 Packet PO QMWF 2 Days dissolve in water Depakote Er (Divalproex Sodium) 500 Mg Tab.er.24h 3 Tab PO QHS Mylanta Maximum Strength Liq (Mag Hydrox/Aluminum Hyd/Simeth) 355 Ml Oral.susp 30 Ml PO PRN Q4HRS PRN Risperdal Consta (Risperidone Microspheres) 37.5 Mg/2 Ml Disp.syrin 50 Mg IM Q2WKS Topamax (Topiramate) 100 Mg Tablet 1 Tab PO BID Risperdal (Risperidone) 4 Mg Tablet 1 Tab PO BID Milk Of Magnesia (Magnesium Hydroxide) 400 Mg/5 Ml Oral.susp 30 Ml PO DAILY PRN Anti-Diarrhea (Loperamide Hcl) 2 Mg Tablet 2 Mg PO PRN Levothyroxine Sodium 75 Mcg Tablet 1 Tab PO DAILY Aspirin 81 Mg Tab.chew 1 Tab PO DAILY Vitals/I & O Vital Sign - Last 24 Hours 06/22/20 06/22/20 06/22/20 06/22/20 11:00 15:00 19:00 19:45 Temp 97.9 98.4 97.8 97.9 98.4 97.8 Pulse 77 82 81 Resp 18 18 16 B/P (MAP) 158/67 (97) 138/62 (87) 115/70 (85) Pulse Ox 99 94 90 O2 Delivery Room Air Room Air Room Air Room Air 06/22/20 06/23/20 23:00 07:00 Temp 98.1 97.4 98.1 97.4 Pulse 88 92 Resp 16 18 B/P (MAP) 104/43 (63) 150/67 (94) Pulse Ox 92 90 O2 Delivery Room Air Room Air Intake and Output 06/22/20 06/22/20 06/23/20 15:00 23:00 07:00 Intake Total 200 ml 100 ml 140 ml Balance 200 ml 100 ml 140 ml Justicifation of Admission Dx: Justifications for Admission: Justification of Admission Dx: Yes Altered Mental Status: Altered Mental Status ROGER ALVARADO MD Jun 23, 2020 08:40
[2020-06-23] MEDS: IV NORMAL SALINE 1000ML BAG 1,000 ML IV SCH (09:20)
[2020-06-23] MEDS: TOPIRAMATE 100 MG TABLET. PO SCH ×2 (09:21→21:37)
[2020-06-23] MEDS: SERTRALINE 25 MG TABLET. PO SCH (09:21)
[2020-06-23] MEDS: risperiDONE 1 MG TABLET. PO SCH ×2 (09:21→21:37)
[2020-06-23] MEDS: LURASIDONE 40 MG TABLET. PO SCH (09:21)
--- NOTE | 2020-06-23 10:16 | NUR ---
SW following. Discussed with RN, pt is from [facility], room air, cardiac diet. Cardiology consulted. RN notified of need for COVID test to return to facility. SW will continue to follow.
[2020-06-23 11:00] VITALS: BP 136/66
--- NOTE | 2020-06-23 11:21 | NUR ---
Pt refused to let this RN swab nose for COVID placement. This RN explained that she will need this test done in order to discharge to her facility. Pt stated "I don't want to go back there." "The doctor told me I don't have to go back there." Education given about needing a COVID swab before acceptance at most facilities. She attempted to let this RN swab her nose but as soon as the swab entered her nose, pt grabbed this RN arm and swab at the same time and stated "my nose is so sensitive they do this all the time." Pt then covered her face with blanket. Will continue to monitor.
[2020-06-23 12:28] LABS: BASO % 0 % (0-3); EOS % 0 % (0-3); HEMATOCRIT 26.2 % (36.0-47.0); HEMOGLOBIN 7.8 g/dL (12.0-15.5); LYMPH % 44 % (24-48); MEAN CORPUSCULAR HEMOGLOBIN 26 pg (25-35); MEAN CORPUSCULAR HGB CONC 30 g/dL (31-37); MEAN CORPUSCULAR VOLUME 86 fL (79-100); MONO # 0.4 x10^3/uL (0.0-1.1); MONO % 17 % (0-9); NEUT # 0.9 x10^3/uL (1.8-7.7); NEUT % 39 % (31-73); PLATELET COUNT 58 x10^3/uL (140-400); RED BLOOD COUNT 3.05 x10^6/uL (3.50-5.40); RED CELL DISTRIBUTION WIDTH 21.3 % (11.5-14.5); WHITE BLOOD COUNT 2.2 x10^3/uL (4.0-11.0)
--- NOTE | 2020-06-23 13:22 | PDOC2 ---
CAROLE ENGLAND CERTIFIED SURGICAL TECH/FIRST ASSISTANT 06/23/20 1322: CARDIAC CONSULT DATE OF CONSULT Date of Consult DATE: 06/23/20 TIME: 13:15 REASON FOR CONSULT Reason for Consult: Syncope, a-fluter REFERRING PHYSICIAN Referring Physician: Dr. Estes SOURCE Source: Chart review, Patient HISTORY OF PRESENT ILLNESS HISTORY OF PRESENT ILLNESS This is a 60 yo female who presented secondary to syncopal episode in the bathroom. Details unclear. Patient confused at baseline and unable to provide any meaningful information regarding what prompted her arrival. Symptoms reportedly occurred while sitting in a bath chair. Had brief LOC. She did not fall or sustain any injuries. She denies any chest pain, dizziness, diaphoresis, or nausea/vomiting. Concerns for brief period of a-flutter overnight. Tele strips reviewed, appears to be artifact related to tremor as it is not consistent in all leads. Patient has had 2 prior hospital admissions for similar complaints. PAST MEDICAL HISTORY Cardiovascular: HTN, Hyperlipidemia Pulmonary: Asthma CENTRAL NERVOUS SYSTEM: Seizure GI: GERD Psych: Anxiety, Depression, Schizophrenia Endocrine: Hypothyroidism PAST SURGICAL HISTORY Past Surgical History: No pertinent history FAMILY HISTORY Family History: Family History Unknown SOCIAL HISTORY Smoke: No ALCOHOL: none Drugs: None Lives: Residential CURRENT MEDICATIONS CURRENT MEDICATIONS Current Medications Medications (Trade) Dose Ordered Sig/Horace Route PRN Reason Start Time Stop Time Status Last Admin Dose Admin Divalproex Sodium (Depakote Er) 1,500 mg QHS PO 06/22/20 21:00 06/22/20 20:53 Fluticasone Propionate (Flonase) 2 spray QHS NS 06/22/20 21:00 06/22/20 20:55 ALLERGIES ALLERGIES: Coded Allergies: haloperidol (Verified Allergy, Intermediate, 06/02/20) iron dextran complex (Verified Allergy, Intermediate, 06/02/20) I S O L A T I O N *CONTACT* (Verified Allergy, Unknown, 06/05/20) VRE ROS Review of System 14 point ROS conducted with pertinent positives noted above in HPI PHYSICAL EXAM General: Alert, Other (oriented to self only ) HEENT: Atraumatic Lungs: Other (diminished bases) Heart: Regular rate, Other (No acute events on tele) Abdomen: Soft Extremities: No edema Skin: No significant lesion Neuro: Sensation intact Psych/Mental Status: Other (drowsy) MUSCULOSKELETAL: Osteoarthritic changes both hands VITALS/I&O VITALS/I&O: Vital Signs Date Time Temp Pulse Resp B/P (MAP) Pulse Ox O2 Delivery O2 Flow Rate FiO2 06/23/20 11:00 98.6 93 16 136/66 (89) 94 Room Air 98.6 I & O 06/22/20 06/22/20 06/23/20 15:00 23:00 07:00 Intake Total 200 ml 100 ml 140 ml Balance 200 ml 100 ml 140 ml LABS Lab: Laboratory Tests Test 06/23/20 06:40 06/23/20 12:00 Sodium Level 146 mmol/L (136-145) H Potassium Level 4.4 mmol/L (3.5-5.1) Chloride Level 114 mmol/L (98-107) H Carbon Dioxide Level 27 mmol/L (21-32) Anion Gap 5 (6-14) L Blood Urea Nitrogen 12 mg/dL (7-20) Creatinine 1.6 mg/dL (0.6-1.0) H Estimated GFR (Cockcroft-Gault) 39.8 Glucose Level 79 mg/dL (70-99) Calcium Level 8.1 mg/dL (8.5-10.1) L Thyroid Stimulating Hormone (TSH) 3.876 uIU/mL (0.358-3.74) H White Blood Count 2.2 x10^3/uL (4.0-11.0) L Red Blood Count 3.05 x10^6/uL (3.50-5.40) L Hemoglobin 7.8 g/dL (12.0-15.5) L Hematocrit 26.2 % (36.0-47.0) L Mean Corpuscular Volume 86 fL (79-100) Mean Corpuscular Hemoglobin 26 pg (25-35) Mean Corpuscular Hemoglobin Concent 30 g/dL (31-37) L Red Cell Distribution Width 21.3 % (11.5-14.5) H Platelet Count 58 x10^3/uL (140-400) L Neutrophils (%) (Auto) 39 % (31-73) Lymphocytes (%) (Auto) 44 % (24-48) Monocytes (%) (Auto) 17 % (0-9) H Eosinophils (%) (Auto) 0 % (0-3) Basophils (%) (Auto) 0 % (0-3) Neutrophils # (Auto) 0.9 x10^3/uL (1.8-7.7) L Lymphocytes # (Auto) 1.0 x10^3/uL (1.0-4.8) Monocytes # (Auto) 0.4 x10^3/uL (0.0-1.1) Eosinophils # (Auto) 0.0 x10^3/uL (0.0-0.7) Basophils # (Auto) 0.0 x10^3/uL (0.0-0.2) Laboratory Tests 06/23/20 12:00 Laboratory Tests 06/23/20 06:40 ECHOCARDIOGRAM ECHOCARDIOGRAM <Conclusion> The left ventricle is normal size. The left ventricular systolic function is normal and the ejection fraction is within normal range. The Ejection Fraction is 60-65%. There is mild concentric left ventricular hypertrophy. Doppler and Color Flow revealed no significant aortic regurgitation. There is no significant aortic valvular stenosis. Doppler and Color Flow revealed no mitral valve regurgitation noted. Doppler and Color Flow revealed trace tricuspid regurgitation. The PA pressure was estimated at 25 mmHg. DATE: 06/03/20 [id number] 0 ASSESSMENT/PLAN ASSESSMENT/PLAN 1. Syncope; ? vasovagal. CT head without acute findings. No acute events on tele. Recent echo with preserved LV systolic function as noted above 2. Hypertension; controlled 3. Hyperlipidemia 4. Pancytopenia 5. AURA on CKD 6. Anemia, thrombocytopenia 7. GERD 8. Anxiety, depression, schizophrenia 9. ? arrhythmia; rhythm strips reviewed, appears to be SR with underling artifact related to tremor as flutter not present in all leads 10. Recent COVID Recommendations Monitor tele [employer] Consider outpatient event monitor versus loop recorder given recurrent syncope Supportive care ETIENNE HENDRICKS MD 06/23/20 2149: CARDIAC CONSULT ASSESSMENT/PLAN ASSESSMENT/PLAN Pt. seen and examined. Agree with above CUSTOMS VERIFIER note. Plan for outpt loop implant. Thanks. CAROLE ENGLAND APRN Jun 23, 2020 13:22 ETIENNE HENDRICKS MD Jun 23, 2020 21:49
[2020-06-23] MEDS: ENOXAPARIN 30 MG/0.3 ML SYRINGE. SQ SCH (14:01)
[2020-06-23 15:00] VITALS: BP 131/69
[2020-06-23 19:00] VITALS: BP 160/108
[2020-06-23] MEDS: DIVALPROEX EXTENDED RELEASE 500 MG TAB.ER.24H. PO SCH (21:36)
[2020-06-23] MEDS: ACETAMINOPHEN 325 MG TABLET. PO PRN (21:37)
[2020-06-23] MEDS: FLUTICASONE 50MCG/NASAL SPRAY 16GM BOTTLE. NS SCH (21:37)
[2020-06-23 23:00] VITALS: BP_SYST 115; BP_SYST 155; BP_DIAS 64
[2020-06-24 03:00] VITALS: BP 163/88
[2020-06-24] MEDS: LEVOTHYROXINE 75 MCG TABLET PO SCH (06:19)
[2020-06-24 07:00] VITALS: BP 180/73
--- NOTE | 2020-06-24 08:05 | PDOC ---
PROGRESS NOTES Date of Service: DATE: 06/24/20 TIME: 08:04 Chief Complaint Chief Complaint impression Syncope, now on tele , PLAN Consider outpatient event monitor versus loop recorder given recurrent syncope neurochecks q 4 hrs, cardiology consult06-23T//Ejection Fraction is 60-65%. recent echo AURA on chronic kidney disease which seems to be at baseline stage IIIb trend renal fx Leukopenia which is chronic Normocytic anemia of chronic inflammation most likely patient does not give history of active bleeding no hematemesis no black tarry stools have been rep orted guaiac for completion Thrombocytopenia with no signs of active bleeding Vasomotor nephropathy, improving with fluid hydration Dehydration Severe malnutrition. Bedridden status as per patient Pancytopenia Chronic renal insufficiency Severe protein-caloric malnutrition HYPERNATREMIA, VOLUME DEPLETED, CONT IV HYPOTONIC SALINE new onset atrial flutter, 06-24 , APPEARS TO BE ARTIFACT hyperchloremia, hypernatremia, needs hypotonic saline cardiology consult 06/23, tsh, T4 D/W RN History of Present Illness History of Present Illness Ms Guzman is a 60-year-old female presenting with syncopal episode. EKG obtained and reviewed by myself shows sinus rhythm with a regular rate. ST segments congruent. Not suggestive of acute ischemia. Not suggestive of Brugada. QTC within normal limits. Not suggestive of WPW. Otherwise patient was afebrile with a normal heart rate. Initial blood pressure was within normal meds. CBC shows a WBC 1.8. She has had this in the past. Hemoglobin 8.2 which is chronic for her. Platelet count 84. Down from 138 previously but she has been in the 80s in April. Otherwise creatinine at baseline. Urinalysis not suggestive of infection. Admitted the patient for telemetry. noted to be in a flutter 06/23, cards consulted Labs relatively unchanged. Afebrile. She is c/o nausea currently as well as dry nares. No CP or SOB. No further syncope. Prior echo reviewed with no significant aortic stenosis but with LVH, normal range EF., new onset a fultter 06-23 Vitals Vitals Vital Signs Date Time Temp Pulse Resp B/P (MAP) Pulse Ox O2 Delivery O2 Flow Rate FiO2 06/24/20 03:00 98.2 87 20 163/88 (113) 92 Room Air 98.2 06/23/20 23:00 Physical Exam Physical Exam Physical Exam General: Alert, Cooperative, No acute distress. Obese. HEENT: PERRLA, EOMI Lungs: Clear to auscultation, Normal air movement Heart: RRR, no murmurs Cardiovascular: irrr Abdomen: Normal bowel sounds, Soft, No tenderness Extremities: No clubbing, No cyanosis Skin: No rashes, No significant lesion Neuro: Normal speech, Normal tone, Sensation intact Psych/Mental Status: Confused. Mental status NL General: Alert, Oriented X3, Cooperative, No acute distress, Other (oriented to self only ) Heart: Regular rate, Normal S1, Other (No acute events on tele) Lungs: Clear, Wheezing Abdomen: Normal bowel sounds, Soft, No tenderness Extremities: No edema Skin: No significant lesion Labs LABS Laboratory Tests Test 06/23/20 12:00 White Blood Count 2.2 x10^3/uL (4.0-11.0) Red Blood Count 3.05 x10^6/uL (3.50-5.40) Hemoglobin 7.8 g/dL (12.0-15.5) Hematocrit 26.2 % (36.0-47.0) Mean Corpuscular Volume 86 fL (79-100) Mean Corpuscular Hemoglobin 26 pg (25-35) Mean Corpuscular Hemoglobin Concent 30 g/dL (31-37) Red Cell Distribution Width 21.3 % (11.5-14.5) Platelet Count 58 x10^3/uL (140-400) Neutrophils (%) (Auto) 39 % (31-73) Lymphocytes (%) (Auto) 44 % (24-48) Monocytes (%) (Auto) 17 % (0-9) Eosinophils (%) (Auto) 0 % (0-3) Basophils (%) (Auto) 0 % (0-3) Neutrophils # (Auto) 0.9 x10^3/uL (1.8-7.7) Lymphocytes # (Auto) 1.0 x10^3/uL (1.0-4.8) Monocytes # (Auto) 0.4 x10^3/uL (0.0-1.1) Eosinophils # (Auto) 0.0 x10^3/uL (0.0-0.7) Basophils # (Auto) 0.0 x10^3/uL (0.0-0.2) Comment Review of Relevant I have reviewed the following items bianca (where applicable) has been applied. Labs Laboratory Tests Test 06/23/20 06:40 06/23/20 12:00 Sodium Level 146 mmol/L (136-145) Potassium Level 4.4 mmol/L (3.5-5.1) Chloride Level 114 mmol/L (98-107) Carbon Dioxide Level 27 mmol/L (21-32) Anion Gap 5 (6-14) Blood Urea Nitrogen 12 mg/dL (7-20) Creatinine 1.6 mg/dL (0.6-1.0) Estimated GFR (Cockcroft-Gault) 39.8 Glucose Level 79 mg/dL (70-99) Calcium Level 8.1 mg/dL (8.5-10.1) Thyroid Stimulating Hormone (TSH) 3.876 uIU/mL (0.358-3.74) White Blood Count 2.2 x10^3/uL (4.0-11.0) Red Blood Count 3.05 x10^6/uL (3.50-5.40) Hemoglobin 7.8 g/dL (12.0-15.5) Hematocrit 26.2 % (36.0-47.0) Mean Corpuscular Volume 86 fL (79-100) Mean Corpuscular Hemoglobin 26 pg (25-35) Mean Corpuscular Hemoglobin Concent 30 g/dL (31-37) Red Cell Distribution Width 21.3 % (11.5-14.5) Platelet Count 58 x10^3/uL (140-400) Neutrophils (%) (Auto) 39 % (31-73) Lymphocytes (%) (Auto) 44 % (24-48) Monocytes (%) (Auto) 17 % (0-9) Eosinophils (%) (Auto) 0 % (0-3) Basophils (%) (Auto) 0 % (0-3) Neutrophils # (Auto) 0.9 x10^3/uL (1.8-7.7) Lymphocytes # (Auto) 1.0 x10^3/uL (1.0-4.8) Monocytes # (Auto) 0.4 x10^3/uL (0.0-1.1) Eosinophils # (Auto) 0.0 x10^3/uL (0.0-0.7) Basophils # (Auto) 0.0 x10^3/uL (0.0-0.2) Laboratory Tests Test 06/23/20 12:00 White Blood Count 2.2 x10^3/uL (4.0-11.0) Red Blood Count 3.05 x10^6/uL (3.50-5.40) Hemoglobin 7.8 g/dL (12.0-15.5) Hematocrit 26.2 % (36.0-47.0) Mean Corpuscular Volume 86 fL (79-100) Mean Corpuscular Hemoglobin 26 pg (25-35) Mean Corpuscular Hemoglobin Concent 30 g/dL (31-37) Red Cell Distribution Width 21.3 % (11.5-14.5) Platelet Count 58 x10^3/uL (140-400) Neutrophils (%) (Auto) 39 % (31-73) Lymphocytes (%) (Auto) 44 % (24-48) Monocytes (%) (Auto) 17 % (0-9) Eosinophils (%) (Auto) 0 % (0-3) Basophils (%) (Auto) 0 % (0-3) Neutrophils # (Auto) 0.9 x10^3/uL (1.8-7.7) Lymphocytes # (Auto) 1.0 x10^3/uL (1.0-4.8) Monocytes # (Auto) 0.4 x10^3/uL (0.0-1.1) Eosinophils # (Auto) 0.0 x10^3/uL (0.0-0.7) Basophils # (Auto) 0.0 x10^3/uL (0.0-0.2) Medications Current Medications Sodium Chloride 1,000 ml @ 75 mls/hr [id number] IV Last administered on 06/23/20at 09:20; Start 06/21/20 at 14:45; Stop 06/23/20 at 14:16; Status DC Ondansetron HCl (Zofran) 4 mg PRN Q6HRS PRN IVP NAUSEA/VOMITING Last administered on 06/22/20at 12:34; Start 06/21/20 at 14:45 Acetaminophen (Tylenol) 650 mg PRN Q6HRS PRN PO Headaches, Temp > 101.5F Last administered on 06/23/20at 21:37; Start 06/21/20 at 14:45 Magnesium Hydroxide (Milk Of Magnesia) 2,400 mg PRN Q12HR PRN PO CONSTIPATION; Start 06/21/20 at 14:45 Bisacodyl (Dulcolax Supp) 10 mg PRN DAILY PRN [place] CONSTIPATION; Start 06/21/20 at 14:45 Enoxaparin Sodium (Lovenox 30mg Syringe) 30 mg Q24H SQ Last administered on 06/22/20at 14:05; Start 06/21/20 at 15:00 Divalproex Sodium (Depakote Er) 1,500 mg QHS PO Last administered on 06/23/20at 21:36; Start 06/22/20 at 21:00 Levothyroxine Sodium (Synthroid) 75 mcg DAILY06 PO Last administered on 06/24/20at 06:19; Start 06/22/20 at 10:30 Al Hydroxide/Mg Hydroxide (Mylanta Plus Xs) 30 ml PRN Q4HRS PRN PO HEARTBURN / GAS; Start 06/22/20 at 08:30 Polyethylene Glycol (miraLAX PACKET) 17 gm PRN Q24HRS PRN PO CONSTIPATION; Start 06/22/20 at 08:30 Sertraline HCl (Zoloft) 25 mg DAILY PO Last administered on 06/23/20at 09:21; Start 06/22/20 at 09:00 Topiramate (Topamax) 100 mg BID PO Last administered on 06/23/20at 21:37; Start 06/22/20 at 09:00 Lurasidone HCl (Latuda) 20 mg DAILYWBKFT PO Last administered on 06/23/20at 09:21; Start 06/22/20 at 09:00 Risperidone (RisperDAL) 4 mg BID PO Last administered on 06/23/20at 21:37; Sta rt 06/22/20 at 09:00 Sodium Chloride ([place] Saline Nasal) 1 carmen PRN DAILY PRN NS NASAL CONGESTION; Start 06/22/20 at 12:00 Fluticasone Propionate (Flonase) 2 spray QHS NS Last administered on 06/23/20at 21:37; Start 06/22/20 at 21:00 Active Scripts Active Reported Zofran (Ondansetron Hcl) 4 Mg Tablet 1 Tab PO Q6HRS Cephalexin 500 Mg Capsule 1 Cap PO QID Lovenox (Enoxaparin Sodium) 30 Mg/0.3 Ml Disp.syrin 30 Mg SQ BID Eliquis (Apixaban) 5 Mg Tablet 5 Mg PO DAILY Acetaminophen 325 Mg Tablet 650 Mg PO PRN Q6HRS PRN Combivent Respimat Inhal (Ipratropium/Albuterol Sulfate) 4 Gm Aer.w.adap 2 Inh IH QID Latuda (Lurasidone Hcl) 20 Mg Tablet 1 Tab PO DAILY 30 Days Zoloft (Sertraline Hcl) 25 Mg Tablet 1 Tab PO DAILY Nystatin 15 Gm Powder 1 Carmen TP PRN PRN 7 Days apply to affected area(s) Miralax (Polyethylene Glycol 3350) 17 Gm Powd.pack 1 Packet PO PRN Q24HRS PRN 2 Days dissolve in water Miralax (Polyethylene Glycol 3350) 17 Gm Powd.pack 1 Packet PO QMWF 2 Days dissolve in water Depakote Er (Divalproex Sodium) 500 Mg Tab.er.24h 3 Tab PO QHS Mylanta Maximum Strength Liq (Mag Hydrox/Aluminum Hyd/Simeth) 355 Ml Oral.susp 30 Ml PO PRN Q4HRS PRN Risperdal Consta (Risperidone Microspheres) 37.5 Mg/2 Ml Disp.syrin 50 Mg IM Q2WKS Topamax (Topiramate) 100 Mg Tablet 1 Tab PO BID Risperdal (Risperidone) 4 Mg Tablet 1 Tab PO BID Milk Of Magnesia (Magnesium Hydroxide) 400 Mg/5 Ml Oral.susp 30 Ml PO DAILY PRN Anti-Diarrhea (Loperamide Hcl) 2 Mg Tablet 2 Mg PO PRN Levothyroxine Sodium 75 Mcg Tablet 1 Tab PO DAILY Aspirin 81 Mg Tab.chew 1 Tab PO DAILY Vitals/I & O Vital Sign - Last 24 Hours 06/23/20 06/23/20 06/23/20 06/23/20 11:00 15:00 19:00 19:40 Temp 98.6 98.4 99.1 98.6 98.4 99.1 Pulse 93 85 88 Resp 16 16 20 B/P (MAP) 136/66 (89) 131/69 (89) 160/108 (125) Pulse Ox 94 90 98 O2 Delivery Room Air Room Air Room Air Room Air 06/23/20 06/24/20 23:00 03:00 Temp 98.4 98.2 98.4 98.2 Pulse 87 87 Resp 20 20 B/P (MAP) 155/64 (94) 163/88 (113) Pulse Ox 97 92 O2 Delivery Room Air Room Air O2 Flow Rate Intake and Output 06/23/20 06/23/20 06/24/20 15:00 23:00 07:00 Intake Total 100 ml 500 ml 540 ml Balance 100 ml 500 ml 540 ml Justicifation of Admission Dx: Justifications for Admission: Justification of Admission Dx: Yes Altered Mental Status: Altered Mental Status ROGER ALVARADO MD Jun 24, 2020 08:05
[2020-06-24 08:35] LABS: BASO % 0 % (0-3); EOS % 0 % (0-3); HEMATOCRIT 24.6 % (36.0-47.0); HEMOGLOBIN 7.5 g/dL (12.0-15.5); LYMPH # 0.9 x10^3/uL (1.0-4.8); LYMPH % 41 % (24-48); MEAN CORPUSCULAR HEMOGLOBIN 26 pg (25-35); MEAN CORPUSCULAR HGB CONC 31 g/dL (31-37); MEAN CORPUSCULAR VOLUME 84 fL (79-100); MONO # 0.5 x10^3/uL (0.0-1.1); MONO % 21 % (0-9); NEUT # 0.8 x10^3/uL (1.8-7.7); NEUT % 37 % (31-73); PLATELET COUNT 61 x10^3/uL (140-400); RED BLOOD COUNT 2.92 x10^6/uL (3.50-5.40); RED CELL DISTRIBUTION WIDTH 20.5 % (11.5-14.5); WHITE BLOOD COUNT 2.2 x10^3/uL (4.0-11.0)
[2020-06-24 08:58] LABS: CALCIUM 8.1 mg/dL (8.5-10.1); CREATININE 1.6 mg/dL (0.6-1.0); GFR 39.8; POTASSIUM 4.2 mmol/L (3.5-5.1)
[2020-06-24] MEDS: SERTRALINE 25 MG TABLET. PO SCH (10:56)
[2020-06-24] MEDS: risperiDONE 1 MG TABLET. PO SCH ×2 (10:57→20:33)
[2020-06-24] MEDS: TOPIRAMATE 100 MG TABLET. PO SCH ×2 (10:57→20:32)
[2020-06-24] MEDS: LURASIDONE 40 MG TABLET. PO SCH (10:57)
[2020-06-24] MEDS: IV DEXTROSE 5 %-0.45 % NACL 1,000 ML IV SCH (10:58)
[2020-06-24 11:00] VITALS: BP 171/82
[2020-06-24] MEDS: ACETAMINOPHEN 325 MG TABLET. PO PRN (11:11)
--- NOTE | 2020-06-24 11:57 | NUR ---
SW following. Discussed with RN, pt left voicemail for [facility] this morning to determine if pt needs a covid test to return. Pt MUST have a COVID test to return, however per RN yesterday - pt refusing. RN trying again today. SW will continue to follow.
--- NOTE | 2020-06-24 14:09 | PDOC ---
CAROLE ENGLAND ENGINEER FIRST ASSISTANT 06/24/20 1409: CARDIO Progress Notes Date and Time Date of Service 06/24/20 Time of Evaluation 1400 Subjective Subjective: No Chest Pain, No shortness of breath, No Palpitations, No Dizziness Vitals Vitals Vital Signs Date Time Temp Pulse Resp B/P (MAP) Pulse Ox O2 Delivery O2 Flow Rate FiO2 06/24/20 11:00 99.5 87 16 171/82 (111) 96 Room Air 99.5 06/23/20 23:00 Weight Weight [ ] Input and Output Intake and Output Intake and Output 06/24/20 07:00 Intake Total 1140 ml Balance 1140 ml Intake Oral 840 ml IV Total 300 ml # Voids 8 Laboratory Labs Laboratory Tests Test 06/24/20 07:30 White Blood Count 2.2 x10^3/uL (4.0-11.0) Red Blood Count 2.92 x10^6/uL (3.50-5.40) Hemoglobin 7.5 g/dL (12.0-15.5) Hematocrit 24.6 % (36.0-47.0) Mean Corpuscular Volume 84 fL (79-100) Mean Corpuscular Hemoglobin 26 pg (25-35) Mean Corpuscular Hemoglobin Concent 31 g/dL (31-37) Red Cell Distribution Width 20.5 % (11.5-14.5) Platelet Count 61 x10^3/uL (140-400) Neutrophils (%) (Auto) 37 % (31-73) Lymphocytes (%) (Auto) 41 % (24-48) Monocytes (%) (Auto) 21 % (0-9) Eosinophils (%) (Auto) 0 % (0-3) Basophils (%) (Auto) 0 % (0-3) Neutrophils # (Auto) 0.8 x10^3/uL (1.8-7.7) Lymphocytes # (Auto) 0.9 x10^3/uL (1.0-4.8) Monocytes # (Auto) 0.5 x10^3/uL (0.0-1.1) Eosinophils # (Auto) 0.0 x10^3/uL (0.0-0.7) Basophils # (Auto) 0.0 x10^3/uL (0.0-0.2) Sodium Level 144 mmol/L (136-145) Potassium Level 4.2 mmol/L (3.5-5.1) Chloride Level 112 mmol/L (98-107) Carbon Dioxide Level 25 mmol/L (21-32) Anion Gap 7 (6-14) Blood Urea Nitrogen 9 mg/dL (7-20) Creatinine 1.6 mg/dL (0.6-1.0) Estimated GFR (Cockcroft-Gault) 39.8 Glucose Level 73 mg/dL (70-99) Calcium Level 8.1 mg/dL (8.5-10.1) Free Thyroxine 0.83 ng/dL (0.76-1.46) Physical Exam HEENT: Neck Supple W Full Motion Chest: Symmetric LUNGS: Clear to Auscultation Heart: RRR Abdomen: Soft N/T Extremities: No Edema Neurology: alert, follow commands Assessment Assessment 1. Syncope; ? vasovagal. CT head without acute findings. No acute events on tele. Recent echo with preserved LV systolic function. h/o recurrent syncope. 2. Hypertension; labile 3. Hyperlipidemia 4. Pancytopenia 5. AURA on CKD 6. Anemia, thrombocytopenia 7. GERD 8. Anxiety, depression, schizophrenia 9. ? arrhythmia; rhythm strips reviewed, appears to be SR with underling artifact related to tremor as flutter not present in all leads 10. Recent COVID Recommendations Add amlodipine for BP control Follow up in our office as scheduled Probable outpatient loop recorder given recurrent syncope Supportive care Justicifation of Admission Dx: Justifications for Admission: Justification of Admission Dx: Yes Altered Mental Status: Altered Mental Status ETIENNE HENDRICKS MD 06/25/20 0635: CARDIO Progress Notes Plan Plan Late entry for 06/24/20 Pt. seen and examined. Agree with above BREAD ICER note. Supportive care. CAROLE ENGLAND APRN Jun 24, 2020 14:09 ETIENNE HENDRICKS MD Jun 25, 2020 06:35
[2020-06-24 15:00] VITALS: BP 176/75
[2020-06-24] MEDS: ENOXAPARIN 30 MG/0.3 ML SYRINGE. SQ SCH (16:59)
[2020-06-24 19:00] VITALS: BP 195/82
[2020-06-24] MEDS: DIVALPROEX EXTENDED RELEASE 500 MG TAB.ER.24H. PO SCH (20:32)
[2020-06-24] MEDS: FLUTICASONE 50MCG/NASAL SPRAY 16GM BOTTLE. NS SCH (20:32)
[2020-06-24 23:31] VITALS: BP 181/74
[2020-06-25] MEDS: ACETAMINOPHEN 325 MG TABLET. PO PRN (00:14)
[2020-06-25] MEDS: IV DEXTROSE 5 %-0.45 % NACL 1,000 ML IV SCH ×2 (00:19→15:54)
[2020-06-25 03:00] VITALS: BP 194/91
[2020-06-25] MEDS ORDERED: METOPROLOL IV PUSH 5 MG/5 ML VIAL. IVP PRN (05:15)
[2020-06-25] MEDS: LEVOTHYROXINE 75 MCG TABLET PO SCH (06:35)
[2020-06-25 07:00] VITALS: BP 170/72
[2020-06-25 07:19] LABS: BASO % 0 % (0-3); EOS % 0 % (0-3); HEMATOCRIT 24.1 % (36.0-47.0); HEMOGLOBIN 7.5 g/dL (12.0-15.5); LYMPH # 1.1 x10^3/uL (1.0-4.8); LYMPH % 51 % (24-48); MEAN CORPUSCULAR HEMOGLOBIN 26 pg (25-35); MEAN CORPUSCULAR HGB CONC 31 g/dL (31-37); MEAN CORPUSCULAR VOLUME 84 fL (79-100); MONO # 0.4 x10^3/uL (0.0-1.1); MONO % 19 % (0-9); NEUT # 0.6 x10^3/uL (1.8-7.7); NEUT % 30 % (31-73); PLATELET COUNT 54 x10^3/uL (140-400); RED BLOOD COUNT 2.88 x10^6/uL (3.50-5.40); RED CELL DISTRIBUTION WIDTH 20.8 % (11.5-14.5); WHITE BLOOD COUNT 2.1 x10^3/uL (4.0-11.0)
[2020-06-25 07:37] LABS: CALCIUM 8.1 mg/dL (8.5-10.1); CREATININE 1.6 mg/dL (0.6-1.0); GFR 39.8
--- NOTE | 2020-06-25 08:15 | PDOC ---
PROGRESS NOTES Date of Service: DATE: 06/25/20 TIME: 08:13 Chief Complaint Chief Complaint ====HOSPITAL D/C SUMMARY [facility] DATE OF ADMIT 06-21-20 DATE OF DISCHARGE 06-25-20 COMPLICATIONS NONE CONSULTATIONS CARDIOLOGY D/C CONDITION GOOD PROCEDURES TELE MONITOR, RECENT ECHO REVIEWED D/C TO [facility] D/C PLANNING 33 MIN DISCHARGE DX D/C MEDS SEE MAR===== Syncope, now on tele , PLAN Consider outpatient event monitor versus loop recorder given recurrent syncope neurochecks q 4 hrs, cardiology [id number]//Ejection Fraction is 60-65%. recent echo plan outpatient loop recorder given recurrent syncope AURA on chronic kidney disease which seems to be at baseline stage IIIb trend renal fx Leukopenia which is chronic Normocytic anemia of chronic inflammation most likely patient does not give history of active bleeding no hematemesis no black tarry stools have been reported guaiac for completion Thrombocytopenia with no signs of active bleeding Vasomotor nephropathy, improving with fluid hydration Dehydration Severe malnutrition. Bedridden status as per patient Pancytopenia Chronic renal insufficiency Severe protein-caloric malnutrition HYPERNATREMIA, VOLUME DEPLETED, CONT IV HYPOTONIC SALINE, IMPROVED new onset atrial flutter, 06-24 , APPEARS TO BE ARTIFACT hyperchloremia, hypernatremia, needs hypotonic saline cardiology consult 06/23, tsh, T4 D/W RN D/C PLANNING 33 MIN History of Present Illness History of Present Illness Ms Guzman is a 60-year-old female presenting with syncopal episode. EKG obtained and reviewed shows sinus rhythm with a regular rate. ST segments congruent. Not suggestive of acute ischemia. Not suggestive of Brugada. QTC within normal limits. Not suggestive of WPW. Otherwise patient was afebrile with a normal heart rate. Initial blood pressure was within normal meds. CBC shows a WBC 1.8. She has had this in the past. Hemoglobin 8.2 which is chronic for her. Platelet count 84. Down from 138 previously but she has been in the 80s in April. Otherwise creatinine at baseline. Urinalysis not suggestive of infection. Admitted the patient for telemetry. noted to be in a flutter 06/23, cards consulted Labs relatively unchanged. Afebrile. She is c/o nausea currently as well as dry nares. No CP or SOB. No further syncope. Prior echo reviewed with no significant aortic stenosis but with LVH, normal range EF., new onset a fultter - Vitals Vitals Vital Signs Date Time Temp Pulse Resp B/P (MAP) Pulse Ox O2 Delivery O2 Flow Rate FiO2 06/25/20 07:00 97.8 68 17 170/72 (104) 95 Room Air 97.8 Physical Exam Physical Exam Physical Exam General: Alert, Cooperative, No acute distress. Obese. HEENT: PERRLA, EOMI Lungs: Clear to auscultation, Normal air movement Heart: RRR, no murmurs Cardiovascular: irrr Abdomen: Normal bowel sounds, Soft, No tenderness Extremities: No clubbing, No cyanosis Skin: No rashes, No significant lesion Neuro: Normal speech, Normal tone, Sensation intact Psych/Mental Status: Confused. Mental status NL General: Alert, Oriented X3, Cooperative, No acute distress, Other (oriented to self only ) Heart: Regular rate, Normal S1, Other (No acute events on tele) Lungs: Clear, Wheezing Abdomen: Normal bowel sounds, Soft, No tenderness Extremities: No cyanosis, No edema Skin: No significant lesion Labs LABS APPROVED REPORT EXAM: Two-dimensional and M-mode echocardiogram with Doppler and color Doppler. Other Information Quality : Good INDICATION Syncope 2D DIMENSIONS RVDd 1.5 (2.9-3.5cm) Left Atrium(2D) 2.4 (1.6-4.0cm) IVSd 1.3 (0.7-1.1cm) Aortic Root(2D) 2.4 (2.0-3.7cm) LVDd 4.0 (3.9-5.9cm) LVOT Diameter 1.8 (1.8-2.4cm) PWd 1.2 (0.7-1.1cm) LVDs 1.7 (2.5-4.0cm) FS (%) 30.0 % SV 63.4 ml LVEF(%) 60.0 (>50%) Aortic Valve AoV Peak Kaden. 176.4cm/s AoV VTI 24.4cm AO Peak GR. 12.4mmHg LVOT VTI 25.44cm AO Mean GR. 8mmHg DIMITRI (VTI) 2.70cm2 AI P 1/2 Time 527ms Mitral Valve MV E Velocity 57.3cm/s MV DECEL TIME 185ms MV A Velocity 78.7cm/s E/A Ratio 0.7 TDI Lateral E' P. V 4.83cm/s Medial E' P. V 6.95cm/s E/Lateral E' 11.9 E/Medial E' 8.2 Tricuspid Valve TR P. Velocity 235cm/s RAP ESTIMATE 3mmHg TR Peak Gr. 22mmHg RVSP 25mmHg Pulmonary Vein S1 Velocity 64.6cm/s S2 Velocity 39.65cm/s D2 Velocity 39.6cm/s LEFT VENTRICLE The left ventricle is normal size. There is mild concentric left ventricular hypertrophy. The left ventricular systolic function is normal and the ejection fraction is within normal range. The Ejection Fraction is 60-65%. There is normal LV segmental wall motion. Transmitral Doppler flow pattern is Grade I- abnormal relaxation pattern. RIGHT VENTRICLE The right ventricle cavity is small. The right ventricular systolic function is normal. ATRIA The left atrium size is normal. The right atrium size is normal. The interatrial septum is intact with no evidence for an atrial septal defect or patent foramen ovale as noted on 2-D or Doppler imaging. AORTIC VALVE The aortic valve is calcified but opens well. Doppler and Color Flow revealed no significant aortic regurgitation. There is no significant aortic valvular qamar nosis. MITRAL VALVE The mitral valve is calcified but opens well. Mitral annular calcification is mild. There is no evidence of mitral valve prolapse. There is no mitral valve stenosis. Doppler and Color Flow revealed no mitral valve regurgitation noted. TRICUSPID VALVE The tricuspid valve is normal in structure and function. Doppler and Color Flow revealed trace tricuspid regurgitation. The PA pressure was estimated at 25 mmHg. There is no tricuspid valve stenosis. PULMONIC VALVE The pulmonic valve is not well visualized. Doppler and Color Flow revealed no pulmonic valvular regurgitation. There is no pulmonic valvular stenosis. GREAT VESSELS The aortic root is normal in size. The ascending aorta is not well seen. The IVC is normal in size and collapses >50% with inspiration. PERICARDIAL EFFUSION There is a trace circumferential pericardial effusion with no hemodynamic significance. Critical Notification Critical Value: No <Conclusion> The left ventricle is normal size. The left ventricular systolic function is normal and the ejection fraction is within normal range. The Ejection Fraction is 60-65%. There is mild concentric left ventricular hypertrophy. Doppler and Color Flow revealed no significant aortic regurgitation. There is no significant aortic valvular stenosis. Doppler and Color Flow revealed no mitral valve regurgitation noted. Doppler and Color Flow revealed trace tricuspid regurgitation. The PA pressure was estimated at 25 mmHg. Signed by : Rika Macias MD Electronically Approved : 06/03/2020 16:54:02 DICTATED and SIGNED BY: RIKA MACIAS MD DATE: 06/03/20 [id number] Laboratory Tests Test 06/25/20 07:00 Sodium Level 143 mmol/L (136-145) Potassium Level 4.0 mmol/L (3.5-5.1) Chloride Level 112 mmol/L (98-107) Carbon Dioxide Level 25 mmol/L (21-32) Anion Gap 6 (6-14) Blood Urea Nitrogen 11 mg/dL (7-20) Creatinine 1.6 mg/dL (0.6-1.0) Estimated GFR (Cockcroft-Gault) 39.8 Glucose Level 180 mg/dL (70-99) Calcium Level 8.1 mg/dL (8.5-10.1) Comment Review of Relevant I have reviewed the following items bianca (where applicable) has been applied. Labs Laboratory Tests Test 06/23/20 12:00 06/24/20 07:30 06/25/20 07:00 White Blood Count 2.2 x10^3/uL (4.0-11.0) 2.2 x10^3/uL (4.0-11.0) Red Blood Count 3.05 x10^6/uL (3.50-5.40) 2.92 x10^6/uL (3.50-5.40) Hemoglobin 7.8 g/dL (12.0-15.5) 7.5 g/dL (12.0-15.5) Hematocrit 26.2 % (36.0-47.0) 24.6 % (36.0-47.0) Mean Corpuscular Volume 86 fL (79-100) 84 fL (79-100) Mean Corpuscular Hemoglobin 26 pg (25-35) 26 pg (25-35) Mean Corpuscular Hemoglobin Concent 30 g/dL (31-37) 31 g/dL (31-37) Red Cell Distribution Width 21.3 % (11.5-14.5) 20.5 % (11.5-14.5) Platelet Count 58 x10^3/uL (140-400) 61 x10^3/uL (140-400) Neutrophils (%) (Auto) 39 % (31-73) 37 % (31-73) Lymphocytes (%) (Auto) 44 % (24-48) 41 % (24-48) Monocytes (%) (Auto) 17 % (0-9) 21 % (0-9) Eosinophils (%) (Auto) 0 % (0-3) 0 % (0-3) Basophils (%) (Auto) 0 % (0-3) 0 % (0-3) Neutrophils # (Auto) 0.9 x10^3/uL (1.8-7.7) 0.8 x10^3/uL (1.8-7.7) Lymphocytes # (Auto) 1.0 x10^3/uL (1.0-4.8) 0.9 x10^3/uL (1.0-4.8) Monocytes # (Auto) 0.4 x10^3/uL (0.0-1.1) 0.5 x10^3/uL (0.0-1.1) Eosinophils # (Auto) 0.0 x10^3/uL (0.0-0.7) 0.0 x10^3/uL (0.0-0.7) Basophils # (Auto) 0.0 x10^3/uL (0.0-0.2) 0.0 x10^3/uL (0.0-0.2) Sodium Level 144 mmol/L (136-145) 143 mmol/L (136-145) Potassium Level 4.2 mmol/L (3.5-5.1) 4.0 mmol/L (3.5-5.1) Chloride Level 112 mmol/L (98-107) 112 mmol/L (98-107) Carbon Dioxide Level 25 mmol/L (21-32) 25 mmol/L (21-32) Anion Gap 7 (6-14) 6 (6-14) Blood Urea Nitrogen 9 mg/dL (7-20) 11 mg/dL (7-20) Creatinine 1.6 mg/dL (0.6-1.0) 1.6 mg/dL (0.6-1.0) Estimated GFR (Cockcroft-Gault) 39.8 39.8 Glucose Level 73 mg/dL (70-99) 180 mg/dL (70-99) Calcium Level 8.1 mg/dL (8.5-10.1) 8.1 mg/dL (8.5-10.1) Free Thyroxine 0.83 ng/dL (0.76-1.46) Laboratory Tests Test 06/25/20 07:00 Sodium Level 143 mmol/L (136-145) Potassium Level 4.0 mmol/L (3.5-5.1) Chloride Level 112 mmol/L (98-107) Carbon Dioxide Level 25 mmol/L (21-32) Anion Gap 6 (6-14) Blood Urea Nitrogen 11 mg/dL (7-20) Creatinine 1.6 mg/dL (0.6-1.0) Estimated GFR (Cockcroft-Gault) 39.8 Glucose Level 180 mg/dL (70-99) Calcium Level 8.1 mg/dL (8.5-10.1) Medications Current Medications Sodium Chloride 1,000 ml @ 75 mls/hr [id number] IV Last administered on 06/23/20at 09:20; Start 06/21/20 at 14:45; Stop 06/23/20 at 14:16; Status DC Ondansetron HCl (Zofran) 4 mg PRN Q6HRS PRN IVP NAUSEA/VOMITING Last administered on 06/22/20at 12:34; Start 06/21/20 at 14:45 Acetaminophen (Tylenol) 650 mg PRN Q6HRS PRN PO Headaches, Temp > 101.5F Last administered on 06/25/20at 00:14; Start 06/21/20 at 14:45 Magnesium Hydroxide (Milk Of Magnesia) 2,400 mg PRN Q12HR PRN PO CONSTIPATION; Start 06/21/20 at 14:45 Bisacodyl (Dulcolax Supp) 10 mg PRN DAILY PRN IA CONSTIPATION; Start 06/21/20 at 14:45 Enoxaparin Sodium (Lovenox 30mg Syringe) 30 mg Q24H SQ Last administered on 06/24/20at 16:59; Start 06/21/20 at 15:00 Divalproex Sodium (Depakote Er) 1,500 mg QHS PO Last administered on 06/24/20at 20:32; Start 06/22/20 at 21:00 Levothyroxine Sodium (Synthroid) 75 mcg DAILY06 PO Last administered on 06/25/20at 06:35; Start 06/22/20 at 10:30 Al Hydroxide/Mg Hydroxide (Mylanta Plus Xs) 30 ml PRN Q4HRS PRN PO HEARTBURN / GAS; Start 06/22/20 at 08:30 Polyethylene Glycol (miraLAX PACKET) 17 gm PRN Q24HRS PRN PO CONSTIPATION; Start 06/22/20 at 08:30 Sertraline HCl (Zoloft) 25 mg DAILY PO Last administered on 06/24/20at 10:56; Start 06/22/20 at 09:00 Topiramate (Topamax) 100 mg BID PO Last administered on 06/24/20at 20:32; Start 06/22/20 at 09:00 Lurasidone HCl (Latuda) 20 mg DAILYWBKFT PO Last administered on 06/24/20at 10:57; Start 06/22/20 at 09:00 Risperidone (RisperDAL) 4 mg BID PO Last administered on 06/24/20at 20:33; Start 06/22/20 at 09:00 Sodium Chloride ([place] Saline Nasal) 1 carmen PRN DAILY PRN NS NASAL CONGESTION; Start 06/22/20 at 12:00 Fluticasone Propionate (Flonase) 2 spray QHS NS Last administered on 06/24/20at 20:32; Start 06/22/20 at 21:00 Dextrose/Sodium Chloride 1,000 ml @ 75 mls/hr [id number] IV Last administered on 06/25/20at 00:19; Start 06/24/20 at 08:15 Amlodipine Besylate (Norvasc) 5 mg DAILY PO ; Start 06/25/20 at 09:00; Stop 06/24/20 at 23:44; Status DC Amlodipine Besylate (Norvasc) 10 mg DAILY PO ; Start 06/25/20 at 09:00 Amlodipine Besylate (Norvasc) 5 mg 1X ONCE PO Last administered on 06/25/20at 00:14; Start 06/25/20 at 00:00; Stop 06/25/20 at 00:01; Status DC Metoprolol Tartrate (Lopressor Vial) 5 mg PRN Q3HRS PRN IVP ELEVATED BP, SEE COMMENTS Last administered on 06/25/20at 05:18; Start 06/25/20 at 05:15 Active Scripts Active Reported Zofran (Ondansetron Hcl) 4 Mg Tablet 1 Tab PO Q6HRS Cephalexin 500 Mg Capsule 1 Cap PO QID Lovenox (Enoxaparin Sodium) 30 Mg/0.3 Ml Disp.syrin 30 Mg SQ BID Eliquis (Apixaban) 5 Mg Tablet 5 Mg PO DAILY Acetaminophen 325 Mg Tablet 650 Mg PO PRN Q6HRS PRN Combivent Respimat Inhal (Ipratropium/Albuterol Sulfate) 4 Gm Aer.w.adap 2 Inh IH QID Latuda (Lurasidone Hcl) 20 Mg Tablet 1 Tab PO DAILY 30 Days Zoloft (Sertraline Hcl) 25 Mg Tablet 1 Tab PO DAILY Nystatin 15 Gm Powder 1 Carmen TP PRN PRN 7 Days apply to affected area(s) Miralax (Polyethylene Glycol 3350) 17 Gm Powd.pack 1 Packet PO PRN Q24HRS PRN 2 Days dissolve in water Miralax (Polyethylene Glycol 3350) 17 Gm Powd.pack 1 Packet PO QMWF 2 Days dissolve in water Depakote Er (Divalproex Sodium) 500 Mg Tab.er.24h 3 Tab PO QHS Mylanta Maximum Strength Liq (Mag Hydrox/Aluminum Hyd/Simeth) 355 Ml Oral.susp 30 Ml PO PRN Q4HRS PRN Risperdal Consta (Risperidone Microspheres) 37.5 Mg/2 Ml Disp.syrin 50 Mg IM Q2WKS Topamax (Topiramate) 100 Mg Tablet 1 Tab PO BID Risperdal (Risperidone) 4 Mg Tablet 1 Tab PO BID Milk Of Magnesia (Magnesium Hydroxide) 400 Mg/5 Ml Oral.susp 30 Ml PO DAILY PRN Anti-Diarrhea (Loperamide Hcl) 2 Mg Tablet 2 Mg PO PRN Levothyroxine Sodium 75 Mcg Tablet 1 Tab PO DAILY Aspirin 81 Mg Tab.chew 1 Tab PO DAILY Vitals/I & O Vital Sign - Last 24 Hours 06/24/20 06/24/20 06/24/20 06/24/20 11:00 15:00 19:00 20:00 Temp 99.5 98.3 99.0 99.5 98.3 99.0 Pulse 87 65 83 Resp 16 16 18 B/P (MAP) 171/82 (111) 176/75 (108) 195/82 (119) Pulse Ox 96 98 100 O2 Delivery Room Air Room Air Room Air 06/24/20 06/25/20 06/25/20 06/25/20 23:31 00:14 03:00 05:18 Temp 98.6 98.6 Pulse 79 79 81 80 Resp 18 B/P (MAP) 181/74 (109) 181/74 194/91 (125) 179/73 Pulse Ox 96 06/25/20 07:00 Temp 97.8 97.8 Pulse 68 Resp 17 B/P (MAP) 170/72 (104) Pulse Ox 95 O2 Delivery Room Air Intake and Output 06/24/20 06/24/20 06/25/20 15:00 23:00 07:00 Output Total 1 ml Balance -1 ml Justicifation of Admission Dx: Justifications for Admission: Justification of Admission Dx: Yes Altered Mental Status: Altered Mental Status ROGER ALVARADO MD Jun 25, 2020 08:15
[2020-06-25] MEDS: TOPIRAMATE 100 MG TABLET. PO SCH ×2 (09:49→21:08)
[2020-06-25] MEDS: LURASIDONE 40 MG TABLET. PO SCH (09:49)
[2020-06-25] MEDS: risperiDONE 1 MG TABLET. PO SCH ×2 (09:49→21:07)
[2020-06-25] MEDS: SERTRALINE 25 MG TABLET. PO SCH (09:49)
--- NOTE | 2020-06-25 10:10 | PDOC3 ---
Discharge Summary Date of Admission: Jun 21, 2020 Date of Discharge: Jun 25, 2020 Follow-Up: 1-2 days Admitting Diagnosis comment: Chief Complaint Chief Complaint ====HOSPITAL D/C SUMMARY DATE OF ADMIT 06-21-20 DATE OF DISCHARGE 06-25-20 COMPLICATIONS NONE CONSULTATIONS CARDIOLOGY D/C CONDITION GOOD PROCEDURES TELE MONITOR, RECENT ECHO REVIEWED D/C TO [facility] D/C PLANNING 33 MIN DISCHARGE DX D/C MEDS SEE MAR===== Syncope, now on tele NO SIGNIFICANT ARRYTHMIA, PLAN CARDIOLOGY FOR outpatient event monitor versus loop recorder given recurrent syncope neurochecks q 4 hrs, cardiology [id number]//Ejection Fraction is 60-65%. recent echo plan outpatient loop recorder given recurrent syncope AURA on chronic kidney disease which seems to be at baseline stage IIIb trend renal fx Leukopenia which is chronic Normocytic anemia of chronic inflammation most likely patient does not give h istory of active bleeding no hematemesis no black tarry stools have been reported guaiac for completion Thrombocytopenia with no signs of active bleeding Vasomotor nephropathy, improving with fluid hydration Dehydration Severe malnutrition. Bedridden status as per patient Pancytopenia Chronic renal insufficiency Severe protein-caloric malnutrition HYPERNATREMIA, VOLUME DEPLETED, CONT IV HYPOTONIC SALINE, IMPROVED new onset atrial flutter, 06-24 , APPEARS TO BE ARTIFACT hyperchloremia, hypernatremia, needs hypotonic saline cardiology consult 06/23, tsh, T4 D/W RN D/C PLANNING 33 MIN History of Present Illness History of Present Illness Ms Guzman is a 60-year-old female presenting with syncopal episode. EKG obtained and reviewed shows sinus rhythm with a regular rate. ST segments congruent. Not suggestive of acute ischemia. Not suggestive of Brugada. QTC within normal limits. Not suggestive of WPW. Otherwise patient was afebrile with a normal heart rate. Initial blood pressure was within normal meds. CBC shows a WBC 1.8. She has had this in the past. Hemoglobin 8.2 which is chronic for her. Platelet count 84. Down from 138 previously but she has been in the 80s in April. Otherwise creatinine at baseline. Urinalysis not suggestive of infection. Admitted the patient for telemetry. noted to be in a flutter 06/23, cards consulted, FELT TO BE ARTIFACT Labs relatively unchanged. Afebrile. She is c/o nausea currently as well as dry nares. No CP or SOB. No further syncope. Prior echo reviewed with no significant aortic stenosis but with LVH, normal range EF., Vitals Vitals Vital Signs Date Time Temp Pulse Resp B/P (MAP) Pulse Ox O2 Delivery O2 Flow Rate FiO2 06/25/20 07:00 97.8 68 17 170/72 (104) 95 Room Air 97.8 Physical Exam Physical Exam Physical Exam General: Alert, Cooperative, No acute distress. Obese. HEENT: PERRLA, EOMI Lungs: Clear to auscultation, Normal air movement Heart: RRR, no murmurs Cardiovascular: irrr Abdomen: Normal bowel sounds, Soft, No tenderness Extremities: No clubbing, No cyanosis Skin: No rashes, No significant lesion Neuro: Normal speech, Normal tone, Sensation intact Psych/Mental Status: Confused. Mental status NL General: Alert, Oriented X3, Cooperative, No acute distress, Other (oriented to self only ) Heart: Regular rate, Normal S1, Other (No acute events on tele) Lungs: Clear, Wheezing Abdomen: Normal bowel sounds, Soft, No tenderness Extremities: No cyanosis, No edema Skin: No significant lesion Labs LABS APPROVED REPORT EXAM: Two-dimensional and M-mode echocardiogram with Doppler and color Doppler. Other Information Quality : Good INDICATION Syncope 2D DIMENSIONS RVDd 1.5 (2.9-3.5cm) Left Atrium(2D) 2.4 (1.6-4.0cm) IVSd 1.3 (0.7-1.1cm) Aortic Root(2D) 2.4 (2.0-3.7cm) LVDd 4.0 (3.9-5.9cm) LVOT Diameter 1.8 (1.8-2.4cm) PWd 1.2 (0.7-1.1cm) LVDs 1.7 (2.5-4.0cm) FS (%) 30.0 % SV 63.4 ml LVEF(%) 60.0 (>50%) Aortic Valve AoV Peak Kaden. 176.4cm/s AoV VTI 24.4cm AO Peak GR. 12.4mmHg LVOT VTI 25.44cm AO Mean GR. 8mmHg DIMITRI (VTI) 2.70cm2 AI P 1/2 Time 527ms Mitral Valve MV E Velocity 57.3cm/s MV DECEL TIME 185ms MV A Velocity 78.7cm/s E/A Ratio 0.7 TDI Lateral E' P. V 4.83cm/s Medial E' P. V 6.95cm/s E/Lateral E' 11.9 E/Medial E' 8.2 Tricuspid Valve TR P. Velocity 235cm/s RAP ESTIMATE 3mmHg TR Peak Gr. 22mmHg RVSP 25mmHg Pulmonary Vein S1 Velocity 64.6cm/s S2 Velocity 39.65cm/s D2 Velocity 39.6cm/s LEFT VENTRICLE The left ventricle is normal size. There is mild concentric left ventricular hypertrophy. The left ventricular systolic function is normal and the ejection fraction is within normal range. The Ejection Fraction is 60-65%. There is normal LV segmental wall motion. Transmitral Doppler flow pattern is Grade I- abnormal relaxation pattern. RIGHT VENTRICLE The right ventricle cavity is small. The right ventricular systolic function is normal. ATRIA The left atrium size is normal. The right atrium size is normal. The interatrial septum is intact with no evidence for an atrial septal defect or patent foramen ovale as noted on 2-D or Doppler imaging. AORTIC VALVE The aortic valve is calcified but opens well. Doppler and Color Flow revealed no significant aortic regurgitation. There is no significant aortic valvular stenosis. MITRAL VALVE The mitral valve is calcified but opens well. Mitral annular calcification is mild. There is no evidence of mitral valve prolapse. There is no mitral valve stenosis. Doppler and Color Flow revealed no mitral valve regurgitation noted. TRICUSPID VALVE The tricuspid valve is normal in structure and function. Doppler and Color Flow revealed trace tricuspid regurgitation. The PA pressure was estimated at 25 mmHg. There is no tricuspid valve stenosis. PULMONIC VALVE The pulmonic valve is not well visualized. Doppler and Color Flow revealed no pulmonic valvular regurgitation. There is no pulmonic valvular stenosis. GREAT VESSELS The aortic root is normal in size. The ascending aorta is not well seen. The IVC is normal in size and collapses >50% with inspiration. PERICARDIAL EFFUSION There is a trace circumferential pericardial effusion with no hemodynamic significance. Critical Notification Critical Value: No <Conclusion> The left ventricle is normal size. The left ventricular systolic function is normal and the ejection fraction is within normal range. The Ejection Fraction is 60-65%. There is mild concentric left ventricular hypertrophy. Doppler and Color Flow revealed no significant aortic regurgitation. There is no significant aortic valvular stenosis. Doppler and Color Flow revealed no mitral valve regurgitation noted. Doppler and Color Flow revealed trace tricuspid regurgitation. The PA pressure was estimated at 25 mmHg. Signed by : Rika Macias MD Electronically Approved : 06/03/2020 16:54:02 APPROVED REPORT EXAM: Two-dimensional and M-mode echocardiogram with Doppler and color Doppler. Other Information Quality : Good INDICATION Syncope 2D DIMENSIONS RVDd 1.5 (2.9-3.5cm) Left Atrium(2D) 2.4 (1.6-4.0cm) IVSd 1.3 (0.7-1.1cm) Aortic Root(2D) 2.4 (2.0-3.7cm) LVDd 4.0 (3.9-5.9cm) LVOT Diameter 1.8 (1.8-2.4cm) PWd 1.2 (0.7-1.1cm) LVDs 1.7 (2.5-4.0cm) FS (%) 30.0 % SV 63.4 ml LVEF(%) 60.0 (>50%) Aortic Valve AoV Peak Kaden. 176.4cm/s AoV VTI 24.4cm AO Peak GR. 12.4mmHg LVOT VTI 25.44cm AO Mean GR. 8mmHg DIMITRI (VTI) 2.70cm2 AI P 1/2 Time 527ms Mitral Valve MV E Velocity 57.3cm/s MV DECEL TIME 185ms MV A Velocity 78.7cm/s E/A Ratio 0.7 TDI Lateral E' P. V 4.83cm/s Medial E' P. V 6.95cm/s E/Lateral E' 11.9 E/Medial E' 8.2 Tricuspid Valve TR P. Velocity 235cm/s RAP ESTIMATE 3mmHg TR Peak Gr. 22mmHg RVSP 25mmHg Pulmonary Vein S1 Velocity 64.6cm/s S2 Velocity 39.65cm/s D2 Velocity 39.6cm/s LEFT VENTRICLE The left ventricle is normal size. There is mild concentric left ventricular h ypertrophy. The left ventricular systolic function is normal and the ejection fraction is within normal range. The Ejection Fraction is 60-65%. There is normal LV segmental wall motion. Transmitral Doppler flow pattern is Grade I- abnormal relaxation pattern. RIGHT VENTRICLE The right ventricle cavity is small. The right ventricular systolic function is normal. ATRIA The left atrium size is normal. The right atrium size is normal. The interatrial septum is intact with no evidence for an atrial septal defect or patent foramen ovale as noted on 2-D or Doppler imaging. AORTIC VALVE The aortic valve is calcified but opens well. Doppler and Color Flow revealed no significant aortic regurgitation. There is no significant aortic valvular stenosis. MITRAL VALVE The mitral valve is calcified but opens well. Mitral annular calcification is mild. There is no evidence of mitral valve prolapse. There is no mitral valve stenosis. Doppler and Color Flow revealed no mitral valve regurgitation noted. TRICUSPID VALVE The tricuspid valve is normal in structure and function. Doppler and Color Flow revealed trace tricuspid regurgitation. The PA pressure was estimated at 25 mmHg. There is no tricuspid valve stenosis. PULMONIC VALVE The pulmonic valve is not well visualized. Doppler and Color Flow revealed no pulmonic valvular regurgitation. There is no pulmonic valvular stenosis. GREAT VESSELS The aortic root is normal in size. The ascending aorta is not well seen. The IVC is normal in size and collapses >50% with inspiration. PERICARDIAL EFFUSION There is a trace circumferential pericardial effusion with no hemodynamic significance. Critical Notification Critical Value: No <Conclusion> The left ventricle is normal size. The left ventricular systolic function is normal and the ejection fraction is within normal range. The Ejection Fraction is 60-65%. There is mild concentric left ventricular hypertrophy. Doppler and Color Flow revealed no significant aortic regurgitation. There is no significant aortic valvular stenosis. Doppler and Color Flow revealed no mitral valve regurgitation noted. Doppler and Color Flow revealed trace tricuspid regurgitation. The PA pressure was estimated at 25 mmHg. Signed by : Rika Macias MD Electronically Approved : 06/03/2020 16:54:02 DICTATED and SIGNED BY: RIKA MACIAS MD DATE: 06/03/20 [id number] 0 Brief Hospital Course Ms. Guzman is a 60 old [sex] who presented with [ ] Discharge Medications Current Medications Sodium Chloride 1,000 ml @ 75 mls/hr [id number] IV Last administered on 06/23/20at 09:20; Start 06/21/20 at 14:45; Stop 06/23/20 at 14:16; Status DC Ondansetron HCl (Zofran) 4 mg PRN Q6HRS PRN IVP NAUSEA/VOMITING Last ad ministered on 06/22/20at 12:34; Start 06/21/20 at 14:45 Acetaminophen (Tylenol) 650 mg PRN Q6HRS PRN PO Headaches, Temp > 101.5F Last administered on 06/25/20at 00:14; Start 06/21/20 at 14:45 Magnesium Hydroxide (Milk Of Magnesia) 2,400 mg PRN Q12HR PRN PO CONSTIPATION; Start 06/21/20 at 14:45 Bisacodyl (Dulcolax Supp) 10 mg PRN DAILY PRN [place] CONSTIPATION; Start 06/21/20 at 14:45 Enoxaparin Sodium (Lovenox 30mg Syringe) 30 mg Q24H SQ Last administered on 06/24/20at 16:59; Start 06/21/20 at 15:00 Divalproex Sodium (Depakote Er) 1,500 mg QHS PO Last administered on 06/24/20at 20:32; Start 06/22/20 at 21:00 Levothyroxine Sodium (Synthroid) 75 mcg DAILY06 PO Last administered on 06/25/20at 06:35; Start 06/22/20 at 10:30 Al Hydroxide/Mg Hydroxide (Mylanta Plus Xs) 30 ml PRN Q4HRS PRN PO HEARTBURN / GAS; Start 06/22/20 at 08:30 Polyethylene Glycol (miraLAX PACKET) 17 gm PRN Q24HRS PRN PO CONSTIPATION; Start 06/22/20 at 08:30 Sertraline HCl (Zoloft) 25 mg DAILY PO Last administered on 06/25/20at 09:49; Start 06/22/20 at 09:00 Topiramate (Topamax) 100 mg BID PO Last administered on 06/25/20at 09:49; Start 06/22/20 at 09:00 Lurasidone HCl (Latuda) 20 mg DAILYWBKFT PO Last administered on 06/25/20at 09:49; Start 06/22/20 at 09:00 Risperidone (RisperDAL) 4 mg BID PO Last administered on 06/25/20at 09:49; Start 06/22/20 at 09:00 Sodium Chloride (Crane Saline Nasal) 1 carmen PRN DAILY PRN NS NASAL CONGESTION; Start 06/22/20 at 12:00 Fluticasone Propionate (Flonase) 2 spray QHS NS Last administered on 06/24/20at 20:32; Start 06/22/20 at 21:00 Dextrose/Sodium Chloride 1,000 ml @ 75 mls/hr [id number] IV Last administered on 06/25/20at 00:19; Start 06/24/20 at 08:15 Amlodipine Besylate (Norvasc) 5 mg DAILY PO ; Start 06/25/20 at 09:00; Stop 06/24/20 at 23:44; Status DC Amlodipine Besylate (Norvasc) 10 mg DAILY PO Last administered on 06/25/20at 09:50; Start 06/25/20 at 09:00 Amlodipine Besylate (Norvasc) 5 mg 1X ONCE PO Last administered on 06/25/20at 00:14; Start 06/25/20 at 00:00; Stop 06/25/20 at 00:01; Status DC Metoprolol Tartrate (Lopressor Vial) 5 mg PRN Q3HRS PRN IVP ELEVATED BP, SEE COMMENTS Last administered on 06/25/20at 05:18; Start 06/25/20 at 05:15 Active Scripts Active Reported Zofran (Ondansetron Hcl) 4 Mg Tablet 1 Tab PO Q6HRS Cephalexin 500 Mg Capsule 1 Cap PO QID Lovenox (Enoxaparin Sodium) 30 Mg/0.3 Ml Disp.syrin 30 Mg SQ BID Eliquis (Apixaban) 5 Mg Tablet 5 Mg PO DAILY Acetaminophen 325 Mg Tablet 650 Mg PO PRN Q6HRS PRN Combivent Respimat Inhal (Ipratropium/Albuterol Sulfate) 4 Gm Aer.w.adap 2 Inh IH QID Latuda (Lurasidone Hcl) 20 Mg Tablet 1 Tab PO DAILY 30 Days Zoloft (Sertraline Hcl) 25 Mg Tablet 1 Tab PO DAILY Nystatin 15 Gm Powder 1 Carmen TP PRN PRN 7 Days apply to affected area(s) Miralax (Polyethylene Glycol 3350) 17 Gm Powd.pack 1 Packet PO PRN Q24HRS PRN 2 Days dissolve in water Miralax (Polyethylene Glycol 3350) 17 Gm Powd.pack 1 Packet PO QMWF 2 Days dissolve in water Depakote Er (Divalproex Sodium) 500 Mg Tab.er.24h 3 Tab PO QHS Mylanta Maximum Strength Liq (Mag Hydrox/Aluminum Hyd/Simeth) 355 Ml Oral.susp 30 Ml PO PRN Q4HRS PRN Risperdal Consta (Risperidone Microspheres) 37.5 Mg/2 Ml Disp.syrin 50 Mg IM Q2WKS Topamax (Topiramate) 100 Mg Tablet 1 Tab PO BID Risperdal (Risperidone) 4 Mg Tablet 1 Tab PO BID Milk Of Magnesia (Magnesium Hydroxide) 400 Mg/5 Ml Oral.susp 30 Ml PO DAILY PRN Anti-Diarrhea (Loperamide Hcl) 2 Mg Tablet 2 Mg PO PRN Levothyroxine Sodium 75 Mcg Tablet 1 Tab PO DAILY Aspirin 81 Mg Tab.chew 1 Tab PO DAILY Vital Signs Vital Signs Date Time Temp Pulse Resp B/P (MAP) Pulse Ox O2 Delivery O2 Flow Rate FiO2 06/25/20 09:50 68 170/72 06/25/20 07:00 97.8 17 95 Room Air 97.8 Labs Laboratory Tests Test 06/23/20 12:00 06/24/20 07:30 06/25/20 07:00 White Blood Count 2.2 x10^3/uL (4.0-11.0) 2.2 x10^3/uL (4.0-11.0) 2.1 x10^3/uL (4.0-11.0) Red Blood Count 3.05 x10^6/uL (3.50-5.40) 2.92 x10^6/uL (3.50-5.40) 2.88 x10^6/uL (3.50-5.40) Hemoglobin 7.8 g/dL (12.0-15.5) 7.5 g/dL (12.0-15.5) 7.5 g/dL (12.0-15.5) Hematocrit 26.2 % (36.0-47.0) 24.6 % (36.0-47.0) 24.1 % (36.0-47.0) Mean Corpuscular Volume 86 fL (79-100) 84 fL (79-100) 84 fL (79-100) Mean Corpuscular Hemoglobin 26 pg (25-35) 26 pg (25-35) 26 pg (25-35) Mean Corpuscular Hemoglobin Concent 30 g/dL (31-37) 31 g/dL (31-37) 31 g/dL (31-37) Red Cell Distribution Width 21.3 % (11.5-14.5) 20.5 % (11.5-14.5) 20.8 % (11.5-14.5) Platelet Count 58 x10^3/uL (140-400) 61 x10^3/uL (140-400) 54 x10^3/uL (140-400) Neutrophils (%) (Auto) 39 % (31-73) 37 % (31-73) 30 % (31-73) Lymphocytes (%) (Auto) 44 % (24-48) 41 % (24-48) 51 % (24-48) Monocytes (%) (Auto) 17 % (0-9) 21 % (0-9) 19 % (0-9) Eosinophils (%) (Auto) 0 % (0-3) 0 % (0-3) 0 % (0-3) Basophils (%) (Auto) 0 % (0-3) 0 % (0-3) 0 % (0-3) Neutrophils # (Auto) 0.9 x10^3/uL (1.8-7.7) 0.8 x10^3/uL (1.8-7.7) 0.6 x10^3/uL (1.8-7.7) Lymphocytes # (Auto) 1.0 x10^3/uL (1.0-4.8) 0.9 x10^3/uL (1.0-4.8) 1.1 x10^3/uL (1.0-4.8) Monocytes # (Auto) 0.4 x10^3/uL (0.0-1.1) 0.5 x10^3/uL (0.0-1.1) 0.4 x10^3/uL (0.0-1.1) Eosinophils # (Auto) 0.0 x10^3/uL (0.0-0.7) 0.0 x10^3/uL (0.0-0.7) 0.0 x10^3/uL (0.0-0.7) Basophils # (Auto) 0.0 x10^3/uL (0.0-0.2) 0.0 x10^3/uL (0.0-0.2) 0.0 x10^3/uL (0.0-0.2) Sodium Level 144 mmol/L (136-145) 143 mmol/L (136-145) Potassium Level 4.2 mmol/L (3.5-5.1) 4.0 mmol/L (3.5-5.1) Chloride Level 112 mmol/L (98-107) 112 mmol/L (98-107) Carbon Dioxide Level 25 mmol/L (21-32) 25 mmol/L (21-32) Anion Gap 7 (6-14) 6 (6-14) Blood Urea Nitrogen 9 mg/dL (7-20) 11 mg/dL (7-20) Creatinine 1.6 mg/dL (0.6-1.0) 1.6 mg/dL (0.6-1.0) Estimated GFR (Cockcroft-Gault) 39.8 39.8 Glucose Level 73 mg/dL (70-99) 180 mg/dL (70-99) Calcium Level 8.1 mg/dL (8.5-10.1) 8.1 mg/dL (8.5-10.1) Free Thyroxine 0.83 ng/dL (0.76-1.46) Laboratory Tests Test 06/25/20 07:00 White Blood Count 2.1 x10^3/uL (4.0-11.0) Red Blood Count 2.88 x10^6/uL (3.50-5.40) Hemoglobin 7.5 g/dL (12.0-15.5) Hematocrit 24.1 % (36.0-47.0) Mean Corpuscular Volume 84 fL (79-100) Mean Corpuscular Hemoglobin 26 pg (25-35) Mean Corpuscular Hemoglobin Concent 31 g/dL (31-37) Red Cell Distribution Width 20.8 % (11.5-14.5) Platelet Count 54 x10^3/uL (140-400) Neutrophils (%) (Auto) 30 % (31-73) Lymphocytes (%) (Auto) 51 % (24-48) Monocytes (%) (Auto) 19 % (0-9) Eosinophils (%) (Auto) 0 % (0-3) Basophils (%) (Auto) 0 % (0-3) Neutrophils # (Auto) 0.6 x10^3/uL (1.8-7.7) Lymphocytes # (Auto) 1.1 x10^3/uL (1.0-4.8) Monocytes # (Auto) 0.4 x10^3/uL (0.0-1.1) Eosinophils # (Auto) 0.0 x10^3/uL (0.0-0.7) Basophils # (Auto) 0.0 x10^3/uL (0.0-0.2) Sodium Level 143 mmol/L (136-145) Potassium Level 4.0 mmol/L (3.5-5.1) Chloride Level 112 mmol/L (98-107) Carbon Dioxide Level 25 mmol/L (21-32) Anion Gap 6 (6-14) Blood Urea Nitrogen 11 mg/dL (7-20) Creatinine 1.6 mg/dL (0.6-1.0) Estimated GFR (Cockcroft-Gault) 39.8 Glucose Level 180 mg/dL (70-99) Calcium Level 8.1 mg/dL (8.5-10.1) Allergies Allergies Coded Allergies Type Severity Reaction Last Updated Verified haloperidol Allergy Intermediate 06/02/20 Yes iron dextran complex Allergy Intermediate 06/02/20 Yes I S O L A T I O N *CONTACT* Allergy Unknown 06/05/20 Yes Disposition/Orders: Other (D/C TO [facility]) Justicifation of Admission Dx: Justifications for Admission: Justification of Admission Dx: Yes Altered Mental Status: Altered Mental Status ROGER ALVARADO MD Jun 25, 2020 10:10
[2020-06-25] MEDS ORDERED: AMLO-187 PO (10:17)
[2020-06-25] MEDS ORDERED: BISA10SU4 PR (10:17)
[2020-06-25] MEDS ORDERED: SODI14.1 NS (10:17)
[2020-06-25] MEDS ORDERED: FLUT16SP NS (10:17)
--- NOTE | 2020-06-25 10:19 | SNU/HH DC ---
DISCHARGE ORDERS DISCHARGE INFORMATION: CONDITION ON DISCHARGE: Stable CODE STATUS: Code Status: Full LONG-TERM: SNF STAY <30 DAYS: Yes HOSPICE: HOSPICE: No HOSPICE EVAL & TREAT: No LTAC: ADMIT TO LTAC: No POST DISCHARGE ORDERS: ACTIVITY ORDERS: Activity as tolerated WEIGHT BEARING STATUS: As tolerated DIET AFTER DISCHARGE: Cardiac CHECKS AFTER DISCHARGE: CHECKS AFTER DISCHARGE: Check blood press - daily, Check your Temp as needed, Weigh Yourself Daily FOLLOW-UP: PHYSICIAN FOLLOW-UP: PCP AT [facility] 2 DAYS, CARDIOLOGY FOR LOOP RECORDER TREATMENT/EQUIPMENT ORDERS: ADAPTIVE EQUIPMENT NEEDED: None, Front wheeled walker Physical Therapy For: Evalulation/Treatment Occupational Therapy For: Evaluation/Treatment Speech Language Pathology For: Evaluation/Treatment DISCHARGE MEDICATIONS: Home Meds Active Scripts Bisacodyl (BISACODYL) 10 Mg Supp.rect, 10 MG IA PRN DAILY PRN for CONSTIPATION for 30 Days, #14 SUPP.RECT Prov:ROGER ALVARADO MD 06/25/20 Sodium Chloride/Aloe Vera (AYR SALINE NASAL GEL) 14.1 Gm Gel..gram., 1 REHAN NS PRN DAILY PRN for NASAL CONGESTION for 30 Days, #1 EACH Prov:ROGER ALVARADO MD 06/25/20 Fluticasone Propionate (FLUTICASONE PROPIONATE NASAL SPRAY) 16 Gm [place].susp, 2 SPRAY NS QHS for NASAL CONGESTION for 30 Days, #1 SPRAY Prov:ROGER ALVARADO MD 06/25/20 Amlodipine Besylate (AMLODIPINE BESYLATE) 10 Mg Tablet, 10 MG PO DAILY for BLOOD PRESSURE for 30 Days, #30 TAB Prov:ROGER ALVARADO MD 06/25/20 Reported Medications Ondansetron Hcl (ZOFRAN) 4 Mg Tablet, 1 TAB PO Q6HRS for nausea, #20 TAB 06/21/20 Acetaminophen (ACETAMINOPHEN) 325 Mg Tablet, 650 MG PO PRN Q6HRS PRN for PAIN, TAB 06/02/20 Ipratropium/Albuterol Sulfate (COMBIVENT RESPIMAT INHAL) 4 Gm Aer.w.adap, 2 INH IH QID for Shortness of breath, INHALER 05/24/20 Lurasidone Hcl (LATUDA) 20 Mg Tablet, 1 TAB PO DAILY for Schizoaffective disorder for 30 Days, #30 TAB 0 Refills 05/24/20 Sertraline Hcl (ZOLOFT) 25 Mg Tablet, 1 TAB PO DAILY for major depressive disorder, #30 TAB 2 Refills 11/09/19 Nystatin (NYSTATIN) 15 Gm Powder, 1 REHAN TP PRN PRN for candidiasis for 7 Days, #1 BOTTLE 0 Refills apply to affected area(s) 11/09/19 Polyethylene Glycol 3350 (MIRALAX) 17 Gm Powd.pack, 1 PACKET PO PRN Q24HRS PRN for CONSTIPATION for 2 Days, PACKET 0 Refills dissolve in water 11/09/19 Polyethylene Glycol 3350 (MIRALAX) 17 Gm Powd.pack, 1 PACKET PO QMWF for constipation for 2 Days, #2 PACKET 0 Refills dissolve in water 11/09/19 Divalproex Sodium (DEPAKOTE ER) 500 Mg Tab.er.24h, 3 TAB PO QHS for schizoaffective disorder, #90 TAB 2 Refills 11/09/19 Mag Hydrox/Aluminum Hyd/Simeth (Mylanta Maximum Strength Liq) 355 Ml Oral.susp, 30 ML PO PRN Q4HRS PRN for HEARTBURN / GAS, MISC 11/09/19 Risperidone Microspheres (RISPERDAL CONSTA) 37.5 Mg/2 Ml Disp.syrin, 50 MG IM Q2WKS for schizoaffective disorder, SYR 01/03/17 Topiramate (TOPAMAX) 100 Mg Tablet, 1 TAB PO BID, #60 TAB 1 Refill 01/03/17 Risperidone (RISPERDAL) 4 Mg Tablet, 1 TAB PO BID, #30 TAB 01/03/17 Magnesium Hydroxide (MILK OF MAGNESIA) 400 Mg/5 Ml Oral.susp, 30 ML PO DAILY PRN for CONSTIPATION, MISC 01/03/17 Loperamide Hcl (ANTI-DIARRHEA) 2 Mg Tablet, 2 MG PO PRN for DIARRHEA, TAB 01/03/17 Levothyroxine Sodium (LEVOTHYROXINE SODIUM) 75 Mcg Tablet, 1 TAB PO DAILY, #30 TAB 5 Refills 01/03/17 Aspirin (ASPIRIN) 81 Mg Tab.chew, 1 TAB PO DAILY, #30 TAB 3 Refills 01/03/17 Discontinued Reported Medications Cephalexin (CEPHALEXIN) 500 Mg Capsule, 1 CAP PO QID for warmth/redness/pain to L arm, #40 CAP 1/23/21 Enoxaparin Sodium (LOVENOX) 30 Mg/0.3 Ml Disp.syrin, 30 MG SQ BID for DVT left arm, DIS.SYR 06/21/20 Apixaban (ELIQUIS) 5 Mg Tablet, 5 MG PO DAILY for DVT left arm, TAB 06/21/20 ROGER ALVARADO MD Jun 25, 2020 10:19
[2020-06-25 11:00] VITALS: BP 189/72
--- NOTE | 2020-06-25 11:11 | NUR ---
SEAN following for discharge planning. Spoke with RN and reviewed chart. Pt on room air. SEAN phoned and faxed clinicals and discharge orders to [facility]. SW awaiting COVID results as the facility is requesting this prior to pt returning. SEAN following. Addendum: 06/25/20 at 1621 by CHRISTINE ESTRADA COVID remains pending so discharge held until 06/26 pending negative results.
[2020-06-25 15:00] VITALS: BP 146/68
[2020-06-25] MEDS: ENOXAPARIN 30 MG/0.3 ML SYRINGE. SQ SCH (15:53)
[2020-06-25 19:00] VITALS: BP 139/55
[2020-06-25] MEDS: DIVALPROEX EXTENDED RELEASE 500 MG TAB.ER.24H. PO SCH (21:08)
[2020-06-25] MEDS: FLUTICASONE 50MCG/NASAL SPRAY 16GM BOTTLE. NS SCH (21:09)
[2020-06-25 23:00] VITALS: BP 146/74
[2020-06-26 03:00] VITALS: BP 119/77
[2020-06-26] MEDS: LEVOTHYROXINE 75 MCG TABLET PO SCH (06:38)
[2020-06-26] MEDS: IV DEXTROSE 5 %-0.45 % NACL 1,000 ML IV SCH (06:39)
[2020-06-26 07:00] VITALS: BP 168/98
--- NOTE | 2020-06-26 09:06 | PDOC ---
PROGRESS NOTES Date of Service: DATE: 06/26/20 TIME: 09:06 Chief Complaint Chief Complaint ====HOSPITAL D/C SUMMARY [facility] DATE OF ADMIT 06-21-20 DATE OF DISCHARGE 06-25-20 COMPLICATIONS NONE CONSULTATIONS CARDIOLOGY D/C CONDITION GOOD PROCEDURES TELE MONITOR, RECENT ECHO REVIEWED D/C TO [facility] D/C PLANNING 33 MIN DISCHARGE DX D/C MEDS SEE MAR===== Syncope, now on tele , PLAN Consider outpatient event monitor versus loop recorder given recurrent syncope neurochecks q 4 hrs, cardiology [id number]//Ejection Fraction is 60-65%. recent echo plan outpatient loop recorder given recurrent syncope AURA on chronic kidney disease which seems to be at baseline stage IIIb trend renal fx Leukopenia which is chronic Normocytic anemia of chronic inflammation most likely patient does not give history of active bleeding no hematemesis no black tarry stools have been reported guaiac for completion Thrombocytopenia with no signs of active bleeding Vasomotor nephropathy, improving with fluid hydration Dehydration Severe malnutrition. Bedridden status as per patient Pancytopenia Chronic renal insufficiency Severe protein-caloric malnutrition HYPERNATREMIA, VOLUME DEPLETED, CONT IV HYPOTONIC SALINE, IMPROVED new onset atrial flutter, 06-24 , APPEARS TO BE ARTIFACT hyperchloremia, hypernatremia, needs hypotonic saline cardiology consult 06/23, tsh, T4 D/W RN D/C PLANNING 33 MIN History of Present Illness History of Present Illness Ms Guzman is a 60-year-old female presenting with syncopal episode. EKG obtained and reviewed shows sinus rhythm with a regular rate. ST segments congruent. Not suggestive of acute ischemia. Not suggestive of Brugada. QTC within normal limits. Not suggestive of WPW. Otherwise patient was afebrile with a normal heart rate. Initial blood pressure was within normal meds. CBC shows a WBC 1.8. She has had this in the past. Hemoglobin 8.2 which is chronic for her. Platelet count 84. Down from 138 previously but she has been in the 80s in April. Otherwise creatinine at baseline. Urinalysis not suggestive of infection. Admitted the patient for telemetry. noted to be in a flutter 06/23, cards consulted Labs relatively unchanged. Afebrile. She is c/o nausea currently as well as dry nares. No CP or SOB. No further syncope. Prior echo reviewed with no significant aortic stenosis but with LVH, normal range EF., new onset a fultter - Vitals Vitals Vital Signs Date Time Temp Pulse Resp B/P (MAP) Pulse Ox O2 Delivery O2 Flow Rate FiO2 06/26/20 07:00 97.8 70 17 168/98 (121) 100 Room Air 97.8 Physical Exam Physical Exam Physical Exam General: Alert, Cooperative, No acute distress. Obese. HEENT: PERRLA, EOMI Lungs: Clear to auscultation, Normal air movement Heart: RRR, no murmurs Cardiovascular: irrr Abdomen: Normal bowel sounds, Soft, No tenderness Extremities: No clubbing, No cyanosis Skin: No rashes, No significant lesion Neuro: Normal speech, Normal tone, Sensation intact Psych/Mental Status: Confused. Mental status NL General: Alert, Oriented X3, Cooperative, No acute distress, Other (oriented to self only ) Heart: Regular rate, Normal S1, Other (No acute events on tele) Lungs: Clear, Wheezing Abdomen: Normal bowel sounds, Soft, No tenderness Extremities: No cyanosis, No edema Skin: No significant lesion Comment Review of Relevant I have reviewed the following items bianca (where applicable) has been applied. Labs Laboratory Tests Test 06/24/20 17:00 06/25/20 07:00 Coronavirus (PCR) Not detected (Not Detected) White Blood Count 2.1 x10^3/uL (4.0-11.0) Red Blood Count 2.88 x10^6/uL (3.50-5.40) Hemoglobin 7.5 g/dL (12.0-15.5) Hematocrit 24.1 % (36.0-47.0) Mean Corpuscular Volume 84 fL (79-100) Mean Corpuscular Hemoglobin 26 pg (25-35) Mean Corpuscular Hemoglobin Concent 31 g/dL (31-37) Red Cell Distribution Width 20.8 % (11.5-14.5) Platelet Count 54 x10^3/uL (140-400) Neutrophils (%) (Auto) 30 % (31-73) Lymphocytes (%) (Auto) 51 % (24-48) Monocytes (%) (Auto) 19 % (0-9) Eosinophils (%) (Auto) 0 % (0-3) Basophils (%) (Auto) 0 % (0-3) Neutrophils # (Auto) 0.6 x10^3/uL (1.8-7.7) Lymphocytes # (Auto) 1.1 x10^3/uL (1.0-4.8) Monocytes # (Auto) 0.4 x10^3/uL (0.0-1.1) Eosinophils # (Auto) 0.0 x10^3/uL (0.0-0.7) Basophils # (Auto) 0.0 x10^3/uL (0.0-0.2) Sodium Level 143 mmol/L (136-145) Potassium Level 4.0 mmol/L (3.5-5.1) Chloride Level 112 mmol/L (98-107) Carbon Dioxide Level 25 mmol/L (21-32) Anion Gap 6 (6-14) Blood Urea Nitrogen 11 mg/dL (7-20) Creatinine 1.6 mg/dL (0.6-1.0) Estimated GFR (Cockcroft-Gault) 39.8 Glucose Level 180 mg/dL (70-99) Calcium Level 8.1 mg/dL (8.5-10.1) Medications Current Medications Sodium Chloride 1,000 ml @ 75 mls/hr [id number] IV Last administered on 06/23/20at 09:20; Start 06/21/20 at 14:45; Stop 06/23/20 at 14:16; Status DC Ondansetron HCl (Zofran) 4 mg PRN Q6HRS PRN IVP NAUSEA/VOMITING Last administered on 06/22/20at 12:34; Start 06/21/20 at 14:45 Acetaminophen (Tylenol) 650 mg PRN Q6HRS PRN PO Headaches, Temp > 101.5F Last administered on 06/25/20at 00:14; Start 06/21/20 at 14:45 Magnesium Hydroxide (Milk Of Magnesia) 2,400 mg PRN Q12HR PRN PO CONSTIPATION; Start 06/21/20 at 14:45 Bisacodyl (Dulcolax Supp) 10 mg PRN DAILY PRN OH CONSTIPATION; Start 06/21/20 at 14:45 Enoxaparin Sodium (Lovenox 30mg Syringe) 30 mg Q24H SQ Last administered on 06/25/20at 15:53; Start 06/21/20 at 15:00 Divalproex Sodium (Depakote Er) 1,500 mg QHS PO Last administered on 06/25/20at 21:08; Start 06/22/20 at 21:00 Levothyroxine Sodium (Synthroid) 75 mcg DAILY06 PO Last administered on 06/26/20at 06:38; Start 06/22/20 at 10:30 Al Hydroxide/Mg Hydroxide (Mylanta Plus Xs) 30 ml PRN Q4HRS PRN PO HEARTBURN / GAS; Start 06/22/20 at 08:30 Polyethylene Glycol (miraLAX PACKET) 17 gm PRN Q24HRS PRN PO CONSTIPATION-1ST CHOICE Last administered on 06/25/20at 15:53; Start 06/22/20 at 08:30 Sertraline HCl (Zoloft) 25 mg DAILY PO Last administered on 06/25/20at 09:49; Start 06/22/20 at 09:00 Topiramate (Topamax) 100 mg BID PO Last administered on 06/25/20at 21:08; Start 06/22/20 at 09:00 Lurasidone HCl (Latuda) 20 mg DAILYWBKFT PO Last administered on 06/25/20at 09:49; Start 06/22/20 at 09:00 Risperidone (RisperDAL) 4 mg BID PO Last administered on 06/25/20at 21:07; Start 06/22/20 at 09:00 Sodium Chloride (Hartland Saline Nasal) 1 carmen PRN DAILY PRN NS NASAL CONGESTION; Start 06/22/20 at 12:00 Fluticasone Propionate (Flonase) 2 spray QHS NS Last administered on 06/25/20at 21:09; Start 06/22/20 at 21:00 Dextrose/Sodium Chloride 1,000 ml @ 75 mls/hr [id number] IV Last administered on 06/26/20at 06:39; Start 06/24/20 at 08:15 Amlodipine Besylate (Norvasc) 5 mg DAILY PO ; Start 06/25/20 at 09:00; Stop 06/24/20 at 23:44; Status DC Amlodipine Besylate (Norvasc) 10 mg DAILY PO Last administered on 06/25/20at 09:50; Start 06/25/20 at 09:00 Amlodipine Besylate (Norvasc) 5 mg 1X ONCE PO Last administered on 06/25/20at 00:14; Start 06/25/20 at 00:00; Stop 06/25/20 at 00:01; Status DC Metoprolol Tartrate (Lopressor Vial) 5 mg PRN Q3HRS PRN IVP ELEVATED BP, SEE COMMENTS Last administered on 06/25/20at 05:18; Start 06/25/20 at 05:15 Active Scripts Active Bisacodyl 10 Mg Supp.rect 10 Mg OH PRN DAILY PRN 30 Days Hartland Saline Nasal Gel (Sodium Chloride/Aloe Vera) 14.1 Gm Gel..gram. 1 Carmen NS PRN DAILY PRN 30 Days Fluticasone Propionate Nasal Boyers (Fluticasone Propionate) 16 Gm Boyers.susp 2 Boyers NS QHS 30 Days Amlodipine Besylate 10 Mg Tablet 10 Mg PO DAILY 30 Days Reported Zofran (Ondansetron Hcl) 4 Mg Tablet 1 Tab PO Q6HRS Acetaminophen 325 Mg Tablet 650 Mg PO PRN Q6HRS PRN Combivent Respimat Inhal (Ipratropium/Albuterol Sulfate) 4 Gm Aer.w.adap 2 Inh IH QID Latuda (Lurasidone Hcl) 20 Mg Tablet 1 Tab PO DAILY 30 Days Zoloft (Sertraline Hcl) 25 Mg Tablet 1 Tab PO DAILY Nystatin 15 Gm Powder 1 Carmen TP PRN PRN 7 Days apply to affected area(s) Miralax (Polyethylene Glycol 3350) 17 Gm Powd.pack 1 Packet PO PRN Q24HRS PRN 2 Days dissolve in water Miralax (Polyethylene Glycol 3350) 17 Gm Powd.pack 1 Packet PO QMWF 2 Days dissolve in water Depakote Er (Divalproex Sodium) 500 Mg Tab.er.24h 3 Tab PO QHS Mylanta Maximum Strength Liq (Mag Hydrox/Aluminum Hyd/Simeth) 355 Ml Oral.susp 30 Ml PO PRN Q4HRS PRN Risperdal Consta (Risperidone Microspheres) 37.5 Mg/2 Ml Disp.syrin 50 Mg IM Q2WKS Topamax (Topiramate) 100 Mg Tablet 1 Tab PO BID Risperdal (Risperidone) 4 Mg Tablet 1 Tab PO BID Milk Of Magnesia (Magnesium Hydroxide) 400 Mg/5 Ml Oral.susp 30 Ml PO DAILY PRN Anti-Diarrhea (Loperamide Hcl) 2 Mg Tablet 2 Mg PO PRN Levothyroxine Sodium 75 Mcg Tablet 1 Tab PO DAILY Aspirin 81 Mg Tab.chew 1 Tab PO DAILY Vitals/I & O Vital Sign - Last 24 Hours 06/25/20 06/25/20 06/25/20 06/25/20 09:50 11:00 15:00 19:00 Temp 97.8 98.3 97.5 97.8 98.3 97.5 Pulse 68 68 72 70 Resp 17 17 16 B/P (MAP) 170/72 189/72 (111) 146/68 (94) 139/55 (83) Pulse Ox 95 98 98 O2 Delivery Room Air Room Air Room Air 06/25/20 06/25/20 06/26/20 06/26/20 20:00 23:00 03:00 07:00 Temp 98.3 98.6 97.8 98.3 98.6 97.8 Pulse 83 85 70 Resp 16 16 17 B/P (MAP) 146/74 (98) 119/77 (91) 168/98 (121) Pulse Ox 99 100 100 O2 Delivery Room Air Room Air Room Air Room Air Intake and Output 06/25/20 06/25/20 06/26/20 15:00 23:00 07:00 Intake Total 240 ml Balance 240 ml Justicifation of Admission Dx: Justifications for Admission: Justification of Admission Dx: Yes Altered Mental Status: Altered Mental Status ROGER ALVARADO MD Jun 26, 2020 09:06
--- NOTE | 2020-06-26 09:45 | NUR ---
SW following. Discussed with RN, negative COVID result faxed to [facility]. Transportation arranged by [facility] for 1100. RN notified. SW will continue to follow.
[2020-06-26 09:49] LABS: CALCIUM 8.5 mg/dL (8.5-10.1); CREATININE 1.6 mg/dL (0.6-1.0); GFR 39.8; POTASSIUM 4.3 mmol/L (3.5-5.1)
[2020-06-26] MEDS: SERTRALINE 25 MG TABLET. PO SCH (09:59)
[2020-06-26] MEDS: risperiDONE 1 MG TABLET. PO SCH (09:59)
[2020-06-26] MEDS: TOPIRAMATE 100 MG TABLET. PO SCH (09:59)
[2020-06-26 10:00] VITALS: BP 168/98
[2020-06-26] MEDS: LURASIDONE 40 MG TABLET. PO SCH (10:04)
[2020-06-26] MEDS: ACETAMINOPHEN 325 MG TABLET. PO PRN (10:20)
== END 2020-06-26 11:07 | DRG 73 ==
LOC: ER 10:34 → 5 NORTH 14:51
PROVIDERS: ADMIT Family Medicine; ATTEND Family Medicine
DX: G90.8 Other disorders of autonomic nervous system (principal); E43 Unspecified severe protein-calorie malnutrition; N17.0 Acute kidney failure with tubular necrosis; D61.818 Other pancytopenia; I48.92 Unspecified atrial flutter; E87.0 Hyperosmolality and hypernatremia; E86.0 Dehydration; I12.9 Hypertensive chronic kidney disease with stage 1 through stage 4 chronic kidney disease, or unspecified chronic kidney disease; E78.5 Hyperlipidemia, unspecified; F20.9 Schizophrenia, unspecified; F41.9 Anxiety disorder, unspecified; F32.9 Major depressive disorder, single episode, unspecified; K21.9 Gastro-esophageal reflux disease without esophagitis; F79 Unspecified intellectual disabilities; N18.32 Chronic kidney disease, stage 3b; E78.00 Pure hypercholesterolemia, unspecified; E03.9 Hypothyroidism, unspecified; F44.81 Dissociative identity disorder; J45.909 Unspecified asthma, uncomplicated; E87.8 Other disorders of electrolyte and fluid balance, not elsewhere classified; E66.9 Obesity, unspecified; J32.0 Chronic maxillary sinusitis; Z20.822 Contact with and (suspected) exposure to COVID-19; Z68.35 Body mass index [BMI] 35.0-35.9, adult; Z74.01 Bed confinement status; Z88.8 Allergy status to other drugs, medicaments and biological substances; Z91.041 Radiographic dye allergy status
CPT/HCPCS: 36415; 70450; 71045; 80048; 80053; 81001; 83735; 84145; 84439; 84443; 84484; 85007; 85025; 93005; 99285; J1650; J2405; J3490; J7030; J7042; U0003; G0378

== ENCOUNTER 2020-07-18 10:07 | Inpatient (IN) | payer MEDICAID ==
[~2020-07-18] VITALS: Ht 167.6 cm; Wt 99.4 kg
[~2020-07-18 10:07] MED LIST changes: +AMLO-187 PO; +APIX5TAB PO; +BISA10SU4 PR; +CEPH500C PO; +ENOX30DI SQ; +FLUT16SP NS; +SODI14.1 NS
[2020-07-18] MEDS ORDERED: IOHEXOL 300 MG/ML 100ML VIAL. IV ONE (10:15)
--- NOTE | 2020-07-18 10:37 | PHYS DOC ---
Past Medical History Past Medical History: Anxiety, Cancer, Constipation, Depression, High Cho lesterol, Hypertension, Hypothyroid, Seizure, Schizophrenia, UTI, Other Additional Past Medical Histor: MULTIPLE PERSONALITY DISORDER, INTELLECTUAL DISABILITIES Past Surgical History: Other Additional Past Surgical Histo: UNKNOWN SURGERY Smoking Status: Never Smoker Alcohol Use: None Drug Use: None General Adult EDM: Chief Complaint: syncope HPI: HPI: This is a pleasant 60-year-old female who presented to the emergency department today as a code stroke. She comes in by EMS. Last known well was 20 minutes prior to arrival. She was walking when she suddenly passed out. On arrival EMS said that the patient had right-sided weakness with drift. In route the patient's weakness and drift subsided. On arrival the patient is without focal neurologic deficit. The patient does have chronic eye problems and diplopia but these are not new for the patient. Review of systems negative for chest pain shortness of breath vomiting fevers chills. All other review of systems negative. ED course: 60-year-old female initially came as a code stroke. Her focal neurol ogic deficit completely resolved in the emergency department. No acute neuro deficit on arrival to ED. I consulted our neurologist Dr. Juarez who recommends not giving TPA based on the patient's clinical presentation. NIH stroke scale of 0. Head CT unremarkable. Blood work obtained and a chest x- ray ordered. Chest x-ray shows a possible pneumonia. Patient has a leukopenia. Patient was given IV antibiotics. Patient's creatinine is elevated when compared to previous. Mild acute kidney injury present. EKG shows sinus rhythm with a mildly tachycardic rate. ST segments are not suggestive of acute ischemia. We will admit the patient for possible TIA and for neurology consultation. Heart Score: Risk Factors: Risk Factors: DM, Current or recent (<one month) smoker, HTN, HLP, family history of CAD, obesity. Risk Scores: Score 0 - 3: 2.5% MACE over next 6 weeks - Discharge Home Score 4 - 6: 20.3% MACE over next 6 weeks - Admit for Clinical Observation Score 7 - 10: 72.7% MACE over next 6 weeks - Early Invasive Strategies Current Medications: Current Medications Medications (Trade) Dose Ordered Sig/Horace Start Time Stop Time Status Last Admin Dose Admin Iohexol (Omnipaque 300 Mg/ml) 75 ml 1X ONCE 07/18/20 10:15 07/18/20 10:16 DC Allergies: Allergies: Allergies Coded Allergies Type Severity Reaction Last Updated Verified haloperidol Allergy Intermediate 06/02/20 Yes iron dextran complex Allergy Intermediate 06/02/20 Yes I S O L A T I O N *CONTACT* Allergy Unknown 06/05/20 Yes Physical Exam: PE: Constitutional: Well developed, well nourished, no acute distress, non-toxic appearance. [] HENT: Normocephalic, atraumatic, bilateral external ears normal, oropharynx moist, no oral exudates, nose normal. [] Eyes: PERRLA, EOMI, conjunctiva normal, no discharge. [] Neck: Normal range of motion, no tenderness, supple, no stridor. [] Cardiovascular:Heart rate regular rhythm, no murmur [] Lungs & Thorax: Bilateral breath sounds clear to auscultation [] Abdomen: Bowel sounds normal, soft, no tenderness, no masses, no pulsatile masses. [] Skin: Warm, dry, no erythema, no rash. [] Back: No tenderness, no CVA tenderness. [] Extremities: No tenderness, no cyanosis, no clubbing, ROM intact, no edema. 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 Normal [id number]. Sensation: equal and normal in all extremities Strength: 5/5 in upper and lower extremities bilaterally Normal speech. No drift. Psychologic: Affect normal, judgement normal, mood normal. [] Current Patient Data: Labs: Laboratory Tests Test 07/18/20 10:28 Glucose (Fingerstick) 101 mg/dL (70-99) H EKG: EKG: [] Radiology/Procedures: Radiology/Procedures: [] Course & Med Decision Making: Course & Med Decision Making Pertinent Labs and Imaging studies reviewed. (See chart for details) [] Dragon Disclaimer: Dragon Disclaimer: This electronic medical record was generated, in whole or in part, using a voice recognition dictation system. Departure Departure Impression: Primary Impression: Syncope Additional Impression: PNA (pneumonia) Disposition: 09 ADMITTED INPT THIS HOSP Admitting Physician: ENE Condition: STABLE Referrals: CRISTINE ZARAGOZA MD (PCP) NIHSS Stroke Scale NIH Stroke Scale: NIH Stroke Scale Response (Comments) Value Level of Consciousness: 0 Alert/Responsive 0 LOC Questions: 0 Answers both correctly 0 LOC Commands: 0 Performs both tasks 0 Best Gaze: 0 Normal 0 Visual: 0 No visual loss 0 Facial Palsy: 0 Normal, symmetrical 0 Motor - Left Arm 0 No drift 0 Motor - Right Arm 0 No drift 0 Motor - Left Leg 0 No drift 0 Motor: Right Leg 0 No drift 0 Limb Ataxia: 0 Absent 0 Sensory: 0 No loss 0 Best Language: 0 Normal 0 Dysathria: 0 Normal 0 Extinction and Inattention: 0 Normal 0 Total 0 JUAN HILL MD Jul 18, 2020 10:37
--- NOTE | 2020-07-18 10:41 | RAD ---
EXAM: CT Head without IV contrast INDICATION: Reason: code stroke, syncope / Spl. Instructions: / History: TECHNIQUE: Multi-detector row CT images were obtained of the head without the use of IV contrast. All CT scans performed at this facility utilize dose optimization techniques as appropriate to the exam, including the following: Automated exposure control and adjustment of the mA and/or KV according to patient size (this includes techniques or standardized protocols for targeted exams where dose is ind ication/reason for exam). COMPARISON: None FINDINGS: BRAIN PARENCHYMA: No evidence of acute intraparenchymal hemorrhage or infarct. Mild generalized paren chymal volume loss, more conspicuous in the cerebellum, is present. VENTRICLES & EXTRA-AXIAL SPACES: Ventricles are within normal limits. Basilar cisterns are patent. N o pathologic extra-axial fluid collection or mass. ORBITS: Orbital contents are unremarkable. SINUSES: Visualized paranasal sinuses and mastoid air cells are clear. OSSEOUS & SOFT TISSUES: Calvarium and skull base are intact. IMPRESSION: No acute intracranial process. FOR INTERNAL CODING PURPOSES Critical result: Findings discussed with Dr. Mark Booker at 07/18/2020 10:35 AM. RESULT CODE: (C) Electronically signed by: Sarah Ortiz MD (07/18/2020 10:39 AM) [id number]
--- NOTE | 2020-07-18 10:57 | RAD ---
XR CHEST 1V 07/18/2020 10:11 AM INDICATION: Syncope COMPARISON: 06/21/2020 TECHNIQUE: Portable frontal view of the chest is provided. FINDINGS: The cardiomediastinal silhouette is within normal limits. Increased faint patchy opacity at the right lung base may represent atelectasis versus infiltrate. There are no significant pleural effusions. There is no pulmonary vascular congestion. No pneumothora x. No suspicious osseous abnormality. IMPRESSION: Increased faint patchy opacity at the right lung base may represent atelectasis versus infiltrate. Sh ort-term follow-up two-view chest radiograph could be of benefit. Electronically signed by: Vianey Villegas MD (07/18/2020 10:55 AM) [id number]
[2020-07-18 11:18] LABS: BASO % 0 % (0-3); EOS % 0 % (0-3); HEMATOCRIT 30.7 % (36.0-47.0); HEMOGLOBIN 9.1 g/dL (12.0-15.5); LYMPH # 0.5 x10^3/uL (1.0-4.8); LYMPH % 30 % (24-48); MEAN CORPUSCULAR HEMOGLOBIN 26 pg (25-35); MEAN CORPUSCULAR HGB CONC 30 g/dL (31-37); MEAN CORPUSCULAR VOLUME 89 fL (79-100); MONO # 0.2 x10^3/uL (0.0-1.1); MONO % 11 % (0-9); NEUT # 0.9 x10^3/uL (1.8-7.7); NEUT % 58 % (31-73); PLATELET COUNT 28 x10^3/uL (140-400); RED BLOOD COUNT 3.43 x10^6/uL (3.50-5.40); RED CELL DISTRIBUTION WIDTH 24.5 % (11.5-14.5)
[2020-07-18 11:25] LABS: PROTHROMBIN TIME PATIENT 16.5 SEC (11.7-14.0); WHITE BLOOD COUNT 1.6 x10^3/uL (4.0-11.0)
[2020-07-18 11:31] LABS: CALCIUM 7.9 mg/dL (8.5-10.1); CREATININE 2.4 mg/dL (0.6-1.0); GFR 24.9; POTASSIUM 4.1 mmol/L (3.5-5.1)
[2020-07-18] MEDS ORDERED: cefTRIAXone IV Push 1 GM VIAL. IVP ONE (12:00)
--- NOTE | 2020-07-18 12:02 | PDOC1 ---
History and Physical Date of Admission Date of Admission DATE: 07/18/20 TIME: 11:58 Identification/Chief Complaint Chief Complaint Syncope Source Source: Chart review History of Present Illness History of Present Illness Patient is a 60-year-old female who is well-known to our service who presents from [facility] by EMS as a code stroke. Per EMS report patient with walking when she suddenly fell onto padded chairs and became unresponsive. Upon EMS arrival she was nodding her head and moaning, with right-sided weakness. Symptoms resolved upon arrival to ED and she was without any focal neurologic deficits. Code stroke initially activated, but after discussion with Dr. Juarez, TPA was not given. Chest x-ray on admission showed faint patchy opacity at the right lung base, consistent with pneumonia. History was obtained through chart review secondary to patient's clinical condition. Will admit patient for further medical management. WBC 1.6 Hb 9.1, Cr 2.4, Ca 7.9, BP 190/97 Past Medical History Cardiovascular: HTN, Hyperlipidemia Pulmonary: Asthma CENTRAL NERVOUS SYSTEM: Seizure GI: GERD Heme/Onc: No pertinent hx Hepatobiliary: No pertinent hx Psych: Anxiety, Depression, Schizophrenia Rheumatologic: No pertinent hx Infectious disease: No pertinent hx Renal/: Chronic renal insuff, UTI Endocrine: Hypothyroidism Past Surgical History Past Surgical History: No pertinent history Family History Family History: Family History Unknown Social History Smoke: No ALCOHOL: none Drugs: None Current Problem List Problem List Problems Medical Problems: (1) PNA (pneumonia) Status: Acute Current Medications Current Medications Current Medications Iohexol (Omnipaque 300 Mg/ml) 75 ml 1X ONCE IV ; Start 07/18/20 at 10:15; Stop 07/18/20 at 10:16; Status DC Ceftriaxone Sodium (Rocephin) 1 gm 1X ONCE IVP ; Start 07/18/20 at 12:00; Stop 07/18/20 at 12:01 Active Scripts Active Bisacodyl 10 Mg Supp.rect 10 Mg [place] PRN DAILY PRN 30 Days [place] Saline Nasal Gel (Sodium Chloride/Aloe Vera) 14.1 Gm Gel..gram. 1 Carmen NS PRN DAILY PRN 30 Days Fluticasone Propionate Nasal [place] (Fluticasone Propionate) 16 Gm [place].susp 2 [place] NS QHS 30 Days Amlodipine Besylate 10 Mg Tablet 10 Mg PO DAILY 30 Days Reported Zofran (Ondansetron Hcl) 4 Mg Tablet 1 Tab PO Q6HRS Acetaminophen 325 Mg Tablet 650 Mg PO PRN Q6HRS PRN Combivent Respimat Inhal (Ipratropium/Albuterol Sulfate) 4 Gm Aer.w.adap 2 Inh IH QID Latuda (Lurasidone Hcl) 20 Mg Tablet 1 Tab PO DAILY 30 Days Zoloft (Sertraline Hcl) 25 Mg Tablet 1 Tab PO DAILY Nystatin 15 Gm Powder 1 Carmen TP PRN PRN 7 Days apply to affected area(s) Miralax (Polyethylene Glycol 3350) 17 Gm Powd.pack 1 Packet PO PRN Q24HRS PRN 2 Days dissolve in water Miralax (Polyethylene Glycol 3350) 17 Gm Powd.pack 1 Packet PO QMWF 2 Days dissolve in water Depakote Er (Divalproex Sodium) 500 Mg Tab.er.24h 3 Tab PO QHS Mylanta Maximum Strength Liq (Mag Hydrox/Aluminum Hyd/Simeth) 355 Ml Oral.susp 30 Ml PO PRN Q4HRS PRN Risperdal Consta (Risperidone Microspheres) 37.5 Mg/2 Ml Disp.syrin 50 Mg IM Q2WKS Topamax (Topiramate) 100 Mg Tablet 1 Tab PO BID Risperdal (Risperidone) 4 Mg Tablet 1 Tab PO BID Milk Of Magnesia (Magnesium Hydroxide) 400 Mg/5 Ml Oral.susp 30 Ml PO DAILY PRN Anti-Diarrhea (Loperamide Hcl) 2 Mg Tablet 2 Mg PO PRN Levothyroxine Sodium 75 Mcg Tablet 1 Tab PO DAILY Aspirin 81 Mg Tab.chew 1 Tab PO DAILY Allergies Allergies: Coded Allergies: haloperidol (Verified Allergy, Intermediate, 06/02/20) iron dextran complex (Verified Allergy, Intermediate, 06/02/20) I S O L A T I O N *CONTACT* (Verified Allergy, Unknown, 06/05/20) VRE ROS Review of System Unable to obtain due to clinical condition Physical Exam Physical Exam General: Somnolent, uncooperative. No acute distress HEENT: PERRLA, EOMI Lungs: Decreased breath sounds bilaterally. Normal air movement Heart: RRR, no murmurs Cardiovascular: S1, S2 Abdomen: Normal bowel sounds, Soft, No tenderness Extremities: 3+ edema bilateral lower extremities. No clubbing, No cyanosis Skin: No rashes, No significant lesion Neuro: Somnolent normal tone, Sensation intact Psych/Mental Status: Lethargic Vitals Vitals Vital Signs Date Time Temp Pulse Resp B/P (MAP) Pulse Ox O2 Delivery O2 Flow Rate FiO2 07/18/20 10:09 98.0 105 16 190/97 (128) 97 Room Air 2.0 98.0 Labs Labs Laboratory Tests Test 07/18/20 10:28 07/18/20 11:00 Glucose (Fingerstick) 101 mg/dL (70-99) White Blood Count 1.6 x10^3/uL (4.0-11.0) Red Blood Count 3.43 x10^6/uL (3.50-5.40) Hemoglobin 9.1 g/dL (12.0-15.5) Hematocrit 30.7 % (36.0-47.0) Mean Corpuscular Volume 89 fL (79-100) Mean Corpuscular Hemoglobin 26 pg (25-35) Mean Corpuscular Hemoglobin Concent 30 g/dL (31-37) Red Cell Distribution Width 24.5 % (11.5-14.5) Platelet Count 28 x10^3/uL (140-400) Neutrophils (%) (Auto) 58 % (31-73) Lymphocytes (%) (Auto) 30 % (24-48) Monocytes (%) (Auto) 11 % (0-9) Eosinophils (%) (Auto) 0 % (0-3) Basophils (%) (Auto) 0 % (0-3) Neutrophils # (Auto) 0.9 x10^3/uL (1.8-7.7) Lymphocytes # (Auto) 0.5 x10^3/uL (1.0-4.8) Monocytes # (Auto) 0.2 x10^3/uL (0.0-1.1) Eosinophils # (Auto) 0.0 x10^3/uL (0.0-0.7) Basophils # (Auto) 0.0 x10^3/uL (0.0-0.2) Prothrombin Time 16.5 SEC (11.7-14.0) Prothromb Time International Ratio 1.4 (0.8-1.1) Activated Partial Thromboplast Time 23 SEC (24-38) Sodium Level 143 mmol/L (136-145) Potassium Level 4.1 mmol/L (3.5-5.1) Chloride Level 112 mmol/L (98-107) Carbon Dioxide Level 23 mmol/L (21-32) Anion Gap 8 (6-14) Blood Urea Nitrogen 19 mg/dL (7-20) Creatinine 2.4 mg/dL (0.6-1.0) Estimated GFR (Cockcroft-Gault) 24.9 Glucose Level 91 mg/dL (70-99) Calcium Level 7.9 mg/dL (8.5-10.1) Troponin I Quantitative 0.038 ng/mL (0.000-0.055) Laboratory Tests Test 07/18/20 10:28 07/18/20 11:00 Glucose (Fingerstick) 101 mg/dL (70-99) White Blood Count 1.6 x10^3/uL (4.0-11.0) Red Blood Count 3.43 x10^6/uL (3.50-5.40) Hemoglobin 9.1 g/dL (12.0-15.5) Hematocrit 30.7 % (36.0-47.0) Mean Corpuscular Volume 89 fL (79-100) Mean Corpuscular Hemoglobin 26 pg (25-35) Mean Corpuscular Hemoglobin Concent 30 g/dL (31-37) Red Cell Distribution Width 24.5 % (11.5-14.5) Platelet Count 28 x10^3/uL (140-400) Neutrophils (%) (Auto) 58 % (31-73) Lymphocytes (%) (Auto) 30 % (24-48) Monocytes (%) (Auto) 11 % (0-9) Eosinophils (%) (Auto) 0 % (0-3) Basophils (%) (Auto) 0 % (0-3) Neutrophils # (Auto) 0.9 x10^3/uL (1.8-7.7) Lymphocytes # (Auto) 0.5 x10^3/uL (1.0-4.8) Monocytes # (Auto) 0.2 x10^3/uL (0.0-1.1) Eosinophils # (Auto) 0.0 x10^3/uL (0.0-0.7) Basophils # (Auto) 0.0 x10^3/uL (0.0-0.2) Prothrombin Time 16.5 SEC (11.7-14.0) Prothromb Time International Ratio 1.4 (0.8-1.1) Activated Partial Thromboplast Time 23 SEC (24-38) Sodium Level 143 mmol/L (136-145) Potassium Level 4.1 mmol/L (3.5-5.1) Chloride Level 112 mmol/L (98-107) Carbon Dioxide Level 23 mmol/L (21-32) Anion Gap 8 (6-14) Blood Urea Nitrogen 19 mg/dL (7-20) Creatinine 2.4 mg/dL (0.6-1.0) Estimated GFR (Cockcroft-Gault) 24.9 Glucose Level 91 mg/dL (70-99) Calcium Level 7.9 mg/dL (8.5-10.1) Troponin I Quantitative 0.038 ng/mL (0.000-0.055) Images Images XR CHEST 1V 07/18/2020 10:11 AM INDICATION: Syncope COMPARISON: 06/21/2020 TECHNIQUE: Portable frontal view of the chest is provided. FINDINGS: The cardiomediastinal silhouette is within normal limits. Increased faint patchy opacity at the right lung base may represent atelectasis versus infiltrate. There are no significant pleural effusions. There is no pulmonary vascular congestion. No pneumothorax. No suspicious osseous abnormality. IMPRESSION: Increased faint patchy opacity at the right lung base may represent atelectasis versus infiltrate. Short-term follow-up two-view chest radiograph could be of benefit. EXAM: CT Head without IV contrast INDICATION: Reason: code stroke, syncope / Spl. Instructions: / History: TECHNIQUE: Multi-detector row CT images were obtained of the head without the us e of IV contrast. All CT scans performed at this facility utilize dose optimization techniques as appropriate to the exam, including the following: Automated exposure control and adjustment of the mA and/or KV according to patient size (this includes techniques or standardized protocols for targeted exams where dose is indication/reason for exam). COMPARISON: None FINDINGS: BRAIN PARENCHYMA: No evidence of acute intraparenchymal hemorrhage or infarct. Mild generalized parenchymal volume loss, more conspicuous in the cerebellum, is present. VENTRICLES & EXTRA-AXIAL SPACES: Ventricles are within normal limits. Basilar cisterns are patent. No pathologic extra-axial fluid collection or mass. ORBITS: Orbital contents are unremarkable. SINUSES: Visualized paranasal sinuses and mastoid air cells are clear. OSSEOUS & SOFT TISSUES: Calvarium and skull base are intact. IMPRESSION: No acute intracranial process. 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 Will continue treatment of HCAP with Zosyn. Suspect vasovagal syncope. She has had 3 prior admissions over the past year for similar symptoms, most recently on 06/21/2020. She was recommended outpatient loop recorder. Consultations placed to neurology MRI brain pending, with further neurological work-up if abnormal MRI. She has history of chronic leukopenia, previously evaluated by Dr. Calderon with Hematology/Oncology. However she did not follow-up with outpatient work- up. Baseline creatinine 1.6 with baseline GFR around 39.8 consistent with CKD 3b IV normal saline Calcium carbonate 3 times daily with meals Resume home medications FEN - Cardiac diet PPX - Lovenox FULL CODE Dispo - inpatient for above Justifications for Admission Other Justification Syncope KRISS NOVA MD Jul 18, 2020 12:02
[2020-07-18 12:03] LABS: BILIRUBIN,URINE SMALL (NEG); CLARITY,URINE CLEAR; COLOR,URINE AMBER; NITRITE,URINE NEGATIVE (NEG); PH,URINE 5.5 (<5.0-8.0); PROTEIN,URINE >=300 mg/dL (NEG-TRACE)
[2020-07-18 12:15] LABS: AMORPHOUS SEDIMENT,UR PRESENT /HPF; BACTERIA,URINE 0 /HPF (0-FEW); RBC,URINE OCC /HPF (0-2)
[2020-07-18 12:41] LABS: % LYMPHS 28 % (24-48); % MONOS 11 % (0-10); % SEGS 61 % (35-66); ANISOCYTOSIS SLIGHT
[2020-07-18 12:42] LABS: PLT ESTIMATE DECREASED (ADEQUATE)
--- NOTE | 2020-07-18 12:56 | PDOC2 ---
NEUROLOGY CONSULT Date of Service DOS: DATE: 07/18/20 TIME: 12:47 Reason for Consult Reason for Consult: Syncope, possible stroke symptoms Referring Physician Referring Physician: Dr. Rubio Source Source: Chart review, Patient History of Present Illness History of Present Illness The patient is a 60-year-old right-handed female longterm patient with history of epilepsy, strabismus, intellectual disability, multiple personality disorder, schizophrenia, depression, and anxiety, who presented to the emergency department today as code stroke. Last known well was approximately 20 minutes prior to arrival. She was walking and passed out. Emergency medical services were told that the patient had right-sided weakness, but in route the weakness and drift subsided. There were no focal neurological abnormalities. I discussed the case with Dr. Booker and we agreed that she was not a candidate for alteplase. I have seen her in 2017 and 2019 for syncope. There was a question of seizures in the past, but I felt that she was really describing extraparametal symptoms as her shaking occurred without any alteration in consciousness. She was just here last month for syncope. I see that cardiology was planning outpatient ambulatory monitoring. Past Medical History Cardiovascular: HTN, Hyperlipidemia Pulmonary: Asthma CENTRAL NERVOUS SYSTEM: Other (extrapyramidal syndrome, intellectual disab ility, strabismus) GI: Constipation, GERD Psych: Anxiety, Depression, Schizophrenia Musculoskeletal: low back pain ENT: Allergic Rhinitis Renal/: UTI Endocrine: Hypothyroidism Past Surgical History Past Surgical History: No pertinent history Family History Family History: No pertinent hx Social History Social History Single, longterm resident, no alcohol or tobacco Current Medications Current Medications Current Medications Iohexol (Omnipaque 300 Mg/ml) 75 ml 1X ONCE IV ; Start 07/18/20 at 10:15; Stop 07/18/20 at 10:16; Status DC Ceftriaxone Sodium (Rocephin) 1 gm 1X ONCE IVP ; Start 07/18/20 at 12:00; Stop 07/18/20 at 12:01; Status DC Calcium Carbonate/ Glycine (Oscal) 500 mg TIDAFTMEAL PO ; Start 07/18/20 at 18:00 Active Scripts Active Bisacodyl 10 Mg Supp.rect 10 Mg [place] PRN DAILY PRN 30 Days [place] Saline Nasal Gel (Sodium Chloride/Aloe Vera) 14.1 Gm Gel..gram. 1 Carmen NS PRN DAILY PRN 30 Days Fluticasone Propionate Nasal [place] (Fluticasone Propionate) 16 Gm [place].susp 2 [place] NS QHS 30 Days Amlodipine Besylate 10 Mg Tablet 10 Mg PO DAILY 30 Days Reported Zofran (Ondansetron Hcl) 4 Mg Tablet 1 Tab PO Q6HRS Acetaminophen 325 Mg Tablet 650 Mg PO PRN Q6HRS PRN Combivent Respimat Inhal (Ipratropium/Albuterol Sulfate) 4 Gm Aer.w.adap 2 Inh IH QID Latuda (Lurasidone Hcl) 20 Mg Tablet 1 Tab PO DAILY 30 Days Zoloft (Sertraline Hcl) 25 Mg Tablet 1 Tab PO DAILY Nystatin 15 Gm Powder 1 Carmen TP PRN PRN 7 Days apply to affected area(s) Miralax (Polyethylene Glycol 3350) 17 Gm Powd.pack 1 Packet PO PRN Q24HRS PRN 2 Days dissolve in water Miralax (Polyethylene Glycol 3350) 17 Gm Powd.pack 1 Packet PO QMWF 2 Days dissolve in water Depakote Er (Divalproex Sodium) 500 Mg Tab.er.24h 3 Tab PO QHS Mylanta Maximum Strength Liq (Mag Hydrox/Aluminum Hyd/Simeth) 355 Ml Oral.susp 30 Ml PO PRN Q4HRS PRN Risperdal Consta (Risperidone Microspheres) 37.5 Mg/2 Ml Disp.syrin 50 Mg IM Q2WKS Topamax (Topiramate) 100 Mg Tablet 1 Tab PO BID Risperdal (Risperidone) 4 Mg Tablet 1 Tab PO BID Milk Of Magnesia (Magnesium Hydroxide) 400 Mg/5 Ml Oral.susp 30 Ml PO DAILY PRN Anti-Diarrhea (Loperamide Hcl) 2 Mg Tablet 2 Mg PO PRN Levothyroxine Sodium 75 Mcg Tablet 1 Tab PO DAILY Aspirin 81 Mg Tab.chew 1 Tab PO DAILY Allergies Allergies: Coded Allergies: haloperidol (Verified Allergy, Intermediate, 06/02/20) iron dextran complex (Verified Allergy, Intermediate, 06/02/20) I S O L A T I O N *CONTACT* (Verified Allergy, Unknown, 06/05/20) VRE ROS Review of System Negative for fever, chills, weight loss, shortness of breath, chest pain, indigestion, hematochezia, melena, and dysuria. Full 14-point review of systems is negative. Physical Exam Physical Examination General: Well-developed, well-nourished black female in no acute distress HEENT: Normocephalic andatraumatic. Temporal arteriespulsatile and nontender. Neck: Supple without bruit, no meningismus Musculoskeletal: Stability:see neurologic. Gait exam:see neurologic. Tone:see neurologic.Strength:see neurologic. Back: No particular point tenderness or deformity Neurological: Mental Status:orientation, memory, attention span/concentration, language, fund of knowledge: Eyes closed, opens to voice, follows a few commands, nonverbal, but she has been speaking to the nurse. Cranial Nerves:Pupils equal and reactive to light, visual royal are full to confrontation. She has bilateral strabismus. Facial sensation is normal. There is no facial asymmetry. Vestibulo- ocular reflex is intact. Palate elevates and tongue protrudes in midline. All other cranial related problems are negative except as mentioned before.Reflexes:2+ and symmetric with flexor plantar responses. Motor:Withdraws all extremities to minimal stimulation. Coordination and gait:not cooperative. Sensory:not cooperative. Vitals VITALS Vital Signs Date Time Temp Pulse Resp B/P (MAP) Pulse Ox O2 Delivery O2 Flow Rate FiO2 07/18/20 10:09 98.0 105 16 190/97 (128) 97 Room Air 2.0 98.0 Labs Labs Laboratory Tests Test 07/18/20 10:28 07/18/20 11:00 07/18/20 11:45 Glucose (Fingerstick) 101 mg/dL (70-99) White Blood Count 1.6 x10^3/uL (4.0-11.0) Red Blood Count 3.43 x10^6/uL (3.50-5.40) Hemoglobin 9.1 g/dL (12.0-15.5) Hematocrit 30.7 % (36.0-47.0) Mean Corpuscular Volume 89 fL (79-100) Mean Corpuscular Hemoglobin 26 pg (25-35) Mean Corpuscular Hemoglobin Concent 30 g/dL (31-37) Red Cell Distribution Width 24.5 % (11.5-14.5) Platelet Count 28 x10^3/uL (140-400) Neutrophils (%) (Auto) 58 % (31-73) Lymphocytes (%) (Auto) 30 % (24-48) Monocytes (%) (Auto) 11 % (0-9) Eosinophils (%) (Auto) 0 % (0-3) Basophils (%) (Auto) 0 % (0-3) Neutrophils # (Auto) 0.9 x10^3/uL (1.8-7.7) Lymphocytes # (Auto) 0.5 x10^3/uL (1.0-4.8) Monocytes # (Auto) 0.2 x10^3/uL (0.0-1.1) Eosinophils # (Auto) 0.0 x10^3/uL (0.0-0.7) Basophils # (Auto) 0.0 x10^3/uL (0.0-0.2) Segmented Neutrophils % 61 % (35-66) Lymphocytes % 28 % (24-48) Monocytes % 11 % (0-10) Platelet Estimate Decreased (ADEQUATE) Anisocytosis Slight Prothrombin Time 16.5 SEC (11.7-14.0) Prothromb Time International Ratio 1.4 (0.8-1.1) Activated Partial Thromboplast Time 23 SEC (24-38) Sodium Level 143 mmol/L (136-145) Potassium Level 4.1 mmol/L (3.5-5.1) Chloride Level 112 mmol/L (98-107) Carbon Dioxide Level 23 mmol/L (21-32) Anion Gap 8 (6-14) Blood Urea Nitrogen 19 mg/dL (7-20) Creatinine 2.4 mg/dL (0.6-1.0) Estimated GFR (Cockcroft-Gault) 24.9 Glucose Level 91 mg/dL (70-99) Calcium Level 7.9 mg/dL (8.5-10.1) Troponin I Quantitative 0.038 ng/mL (0.000-0.055) Urine Collection Type U cath Urine Color [place] Urine Clarity Clear Urine pH 5.5 (<5.0-8.0) Urine Specific [place] >=1.030 (1.000-1.030) Urine Protein >=300 mg/dL (NEG-TRACE) Urine Glucose (UA) Negative mg/dL (NEG) Urine Ketones (Stick) Trace mg/dL (NEG) Urine Blood Negative (NEG) Urine Nitrite Negative (NEG) Urine Bilirubin Small (NEG) Urine Urobilinogen Dipstick 2.0 mg/dL (0.2 mg/dL) Urine Leukocyte Esterase Negative (NEG) Urine RBC Occ /HPF (0-2) Urine WBC 1-4 /HPF (0-4) Urine Squamous Epithelial Cells Few /LPF Urine Amorphous Sediment Present /HPF Urine Bacteria 0 /HPF (0-FEW) Laboratory Tests Test 07/18/20 10:28 07/18/20 11:00 07/18/20 11:45 Glucose (Fingerstick) 101 mg/dL (70-99) White Blood Count 1.6 x10^3/uL (4.0-11.0) Red Blood Count 3.43 x10^6/uL (3.50-5.40) Hemoglobin 9.1 g/dL (12.0-15.5) Hematocrit 30.7 % (36.0-47.0) Mean Corpuscular Volume 89 fL (79-100) Mean Corpuscular Hemoglobin 26 pg (25-35) Mean Corpuscular Hemoglobin Concent 30 g/dL (31-37) Red Cell Distribution Width 24.5 % (11.5-14.5) Platelet Count 28 x10^3/uL (140-400) Neutrophils (%) (Auto) 58 % (31-73) Lymphocytes (%) (Auto) 30 % (24-48) Monocytes (%) (Auto) 11 % (0-9) Eosinophils (%) (Auto) 0 % (0-3) Basophils (%) (Auto) 0 % (0-3) Neutrophils # (Auto) 0.9 x10^3/uL (1.8-7.7) Lymphocytes # (Auto) 0.5 x10^3/uL (1.0-4.8) Monocytes # (Auto) 0.2 x10^3/uL (0.0-1.1) Eosinophils # (Auto) 0.0 x10^3/uL (0.0-0.7) Basophils # (Auto) 0.0 x10^3/uL (0.0-0.2) Segmented Neutrophils % 61 % (35-66) Lymphocytes % 28 % (24-48) Monocytes % 11 % (0-10) Platelet Estimate Decreased (ADEQUATE) Anisocytosis Slight Prothrombin Time 16.5 SEC (11.7-14.0) Prothromb Time International Ratio 1.4 (0.8-1.1) Activated Partial Thromboplast Time 23 SEC (24-38) Sodium Level 143 mmol/L (136-145) Potassium Level 4.1 mmol/L (3.5-5.1) Chloride Level 112 mmol/L (98-107) Carbon Dioxide Level 23 mmol/L (21-32) Anion Gap 8 (6-14) Blood Urea Nitrogen 19 mg/dL (7-20) Creatinine 2.4 mg/dL (0.6-1.0) Estimated GFR (Cockcroft-Gault) 24.9 Glucose Level 91 mg/dL (70-99) Calcium Level 7.9 mg/dL (8.5-10.1) Troponin I Quantitative 0.038 ng/mL (0.000-0.055) Urine Collection Type U cath Urine Color [place] Urine Clarity Clear Urine pH 5.5 (<5.0-8.0) Urine Specific [place] >=1.030 (1.000-1.030) Urine Protein >=300 mg/dL (NEG-TRACE) Urine Glucose (UA) Negative mg/dL (NEG) Urine Ketones (Stick) Trace mg/dL (NEG) Urine Blood Negative (NEG) Urine Nitrite Negative (NEG) Urine Bilirubin Small (NEG) Urine Urobilinogen Dipstick 2.0 mg/dL (0.2 mg/dL) Urine Leukocyte Esterase Negative (NEG) Urine RBC Occ /HPF (0-2) Urine WBC 1-4 /HPF (0-4) Urine Squamous Epithelial Cells Few /LPF Urine Amorphous Sediment Present /HPF Urine Bacteria 0 /HPF (0-FEW) Images Images CT Head without IV contrast INDICATION: Reason: code stroke, syncope / Spl. Instructions: / History: TECHNIQUE: Multi-detector row CT images were obtained of the head without the use of IV contrast. All CT scans performed at this facility utilize dose optimization techniques as appropriate to the exam, including the following: Automated exposure control and adjustment of the mA and/or KV according to patient size (this includes techniques or standardized protocols for targeted exams where dose is indication/reason for exam). COMPARISON: None FINDINGS: BRAIN PARENCHYMA: No evidence of acute intraparenchymal hemorrhage or infarct. Mild generalized parenchymal volume loss, more conspicuous in the cerebellum, is present. VENTRICLES & EXTRA-AXIAL SPACES: Ventricles are within normal limits. Basilar cisterns are patent. No pathologic extra-axial fluid collection or mass. ORBITS: Orbital contents are unremarkable. SINUSES: Visualized paranasal sinuses and mastoid air cells are clear. OSSEOUS & SOFT TISSUES: Calvarium and skull base are intact. IMPRESSION: No acute intracranial process. 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 Strabismus Recommendations: MRI of the brain Further neurological studies only if it is abnormal Outpatient cardiology work-up as previously planned Discussed with Dr. Rubio Thank you for letting me help with the patient's care. SANAM TAPIA MD Jul 18, 2020 12:56
[2020-07-18 15:45] VITALS: BP 141/70
[2020-07-18] MEDS ORDERED: PIP/TAZO PER PHARMACY MC PRN (15:45)
[2020-07-18] MEDS ORDERED: BISACODYL 10 MG SUPP.RECT. PR PRN (15:45)
[2020-07-18] MEDS ORDERED: POLYETHYLENE GLYCOL 3350 17 GM PACKET. PO PRN (15:45)
[2020-07-18] MEDS ORDERED: ONDANSETRON PF 4 MG/2 ML VIAL. IVP PRN (16:00)
[2020-07-18] MEDS ORDERED: HYDROcodone/APAP 5/325MG 1 TAB TABLET PO PRN (16:00)
[2020-07-18] MEDS ORDERED: ACETAMINOPHEN 325 MG TABLET. PO PRN (16:00)
[2020-07-18] MEDS: IPRATRPIUM/ALBUTEROL 0.5/2.5MG 3 ML NEBU. NEB SCH ×2 (16:00→20:00)
[2020-07-18] MEDS ORDERED: MAG HYDROX/ALUMINUM HYD/SIMETH 30 ML ORAL.SUSP PO PRN (16:00)
[2020-07-18] MEDS ORDERED: CALCIUM CARBONATE 500 MG TAB.CHEW PO PRN (16:00)
[2020-07-18] MEDS: PIPERACILLIN/TAZOBACTAM 3.375 GM in IV NORMAL SALINE 50ML 50 ML IV SCH ×2 (17:06→23:51)
[2020-07-18] MEDS: CALCIUM CARBONATE 500 MG TABLET PO SCH (17:06)
[2020-07-18] MEDS: IV NORMAL SALINE 1000ML BAG 1,000 ML IV SCH (17:07)
[2020-07-18 19:00] VITALS: BP 158/79
--- NOTE | 2020-07-18 19:23 | EKG ---
[facility] [address] [place] [address] Test Date: 2020-07-18 Test Time: 11:07:49 Pat Name: AVI VILLEGAS Department: Room: Gender: F [employer] In[employer]: : [id number] Requested By: JUAN HILL Order Number: [id number] Reading MD: Measurements Intervals [place] Rate: 94 P: 71 ND: 112 QRS: 57 QRSD: 76 T: -34 QT: 346 QTc: 438 Interpretive Statements SINUS RHYTHM ATRIAL PREMATURE COMPLEX(ES) LEFT ATRIAL ABNORMALITY QRS(T) CONTOUR ABNORMALITY CONSISTENT WITH ANTEROSEPTAL INFARCT AGE UNDETERMINED T ABNORMALITY IN INFERIOR LEADS ABNORMAL ECG RI6.02 No previous ECG available for comparison
[2020-07-18] MEDS: DIVALPROEX EXTENDED RELEASE 500 MG TAB.ER.24H. PO SCH (20:06)
[2020-07-18] MEDS: FLUTICASONE 50MCG/NASAL SPRAY 16GM BOTTLE. NS SCH (20:06)
[2020-07-18] MEDS: TOPIRAMATE 100 MG TABLET. PO SCH (20:06)
[2020-07-18] MEDS ORDERED: ENOXAPARIN 40 MG/0.4 ML SYRINGE. SQ SCH (21:00)
[2020-07-18 23:00] VITALS: BP 181/78
[2020-07-18 23:24] VITALS: BP 152/89
[2020-07-19] MEDS: IV NORMAL SALINE 1000ML BAG 1,000 ML IV SCH ×3 (02:22→22:28)
[2020-07-19 03:00] VITALS: BP 138/84
[2020-07-19] MEDS: LEVOTHYROXINE 75 MCG TABLET PO SCH (05:38)
[2020-07-19] MEDS: PIPERACILLIN/TAZOBACTAM 3.375 GM in IV NORMAL SALINE 50ML 50 ML IV SCH ×3 (05:41→17:57)
[2020-07-19 07:41] VITALS: BP 155/75
[2020-07-19] MEDS: ASPIRIN CHEWABLE 81 MG TABLET. PO SCH (08:42)
[2020-07-19] MEDS: SERTRALINE 25 MG TABLET. PO SCH (08:43)
[2020-07-19] MEDS: TOPIRAMATE 100 MG TABLET. PO SCH ×2 (08:43→22:22)
[2020-07-19] MEDS: CALCIUM CARBONATE 500 MG TABLET PO SCH ×3 (08:51→17:57)
[2020-07-19 10:09] VITALS: BP 145/92
[2020-07-19 11:47] LABS: ALBUMIN 1.4 g/dL (3.4-5.0); ALBUMIN/GLOBULIN RATIO 0.3 (1.0-1.7); ALK PHOS 52 U/L (46-116); ALT (SGPT) < 6 U/L (14-59); ANION GAP 6 (6-14); AST (SGOT) 13 U/L (15-37); BLOOD UREA NITROGEN 18 mg/dL (7-20); BUN/CREATININE RATIO 9 (6-20); CALCIUM 7.6 mg/dL (8.5-10.1); CARBON DIOXIDE 25 mmol/L (21-32); CHLORIDE 109 mmol/L (98-107); CREATININE 1.9 mg/dL (0.6-1.0); GFR 32.6; GLUCOSE 83 mg/dL (70-99); POTASSIUM 4.7 mmol/L (3.5-5.1); SODIUM 140 mmol/L (136-145); TOTAL BILIRUBIN 0.2 mg/dL (0.2-1.0); TOTAL PROTEIN 5.6 g/dL (6.4-8.2)
[2020-07-19 14:11] VITALS: BP 151/75
--- NOTE | 2020-07-19 15:12 | PDOC ---
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 Strabismus Unable to tolerate MRI Pneumonia Plan Risks exceed benefits of MRI under general anesthesia. Examination is back to baseline Further outpatient cardiac testing such as long-term monitoring No additional neurological studies needed Treatment of pneumonia Discussed with Dr. Rubio. Subjective Denies pain Objective Vital Signs Date Time Temp Pulse Resp B/P (MAP) Pulse Ox O2 Delivery O2 Flow Rate FiO2 07/19/20 14:11 98.1 77 18 151/75 (100) 96 Nasal Cannula 2.0 98.1 Intake and Output 07/19/20 07:00 Intake Total 2130 ml Balance 2130 ml Intake Oral 1030 ml IV Total 1100 ml # Voids 3 PHYSICAL EXAM Alert. Oriented only to person. PERRL. EOMI, bilateral strabismus. CN: no focal findings. Muscle tone: normal. Muscle strength: 4/5 DTR: 2+ Plantar reflex: Flexor Gait: not examined in bed. Sensory exam: no abnormal findings. No cerebellar signs elicited. Review of Relevant I have reviewed the following items bianca (where applicable) has been applied. Labs Laboratory Tests Test 07/18/20 10:28 07/18/20 11:00 07/18/20 11:45 07/19/20 11:10 Glucose (Fingerstick) 101 mg/dL (70-99) White Blood Count 1.6 x10^3/uL (4.0-11.0) Red Blood Count 3.43 x10^6/uL (3.50-5.40) Hemoglobin 9.1 g/dL (12.0-15.5) Hematocrit 30.7 % (36.0-47.0) Mean Corpuscular Volume 89 fL (79-100) Mean Corpuscular Hemoglobin 26 pg (25-35) Mean Corpuscular Hemoglobin Concent 30 g/dL (31-37) Red Cell Distribution Width 24.5 % (11.5-14.5) Platelet Count 28 x10^3/uL (140-400) Neutrophils (%) (Auto) 58 % (31-73) Lymphocytes (%) (Auto) 30 % (24-48) Monocytes (%) (Auto) 11 % (0-9) Eosinophils (%) (Auto) 0 % (0-3) Basophils (%) (Auto) 0 % (0-3) Neutrophils # (Auto) 0.9 x10^3/uL (1.8-7.7) Lymphocytes # (Auto) 0.5 x10^3/uL (1.0-4.8) Monocytes # (Auto) 0.2 x10^3/uL (0.0-1.1) Eosinophils # (Auto) 0.0 x10^3/uL (0.0-0.7) Basophils # (Auto) 0.0 x10^3/uL (0.0-0.2) Segmented Neutrophils % 61 % (35-66) Lymphocytes % 28 % (24-48) Monocytes % 11 % (0-10) Platelet Estimate Decreased (ADEQUATE) Anisocytosis Slight Prothrombin Time 16.5 SEC (11.7-14.0) Prothromb Time International Ratio 1.4 (0.8-1.1) Activated Partial Thromboplast Time 23 SEC (24-38) Sodium Level 143 mmol/L (136-145) 140 mmol/L (136-145) Potassium Level 4.1 mmol/L (3.5-5.1) 4.7 mmol/L (3.5-5.1) Chloride Level 112 mmol/L (98-107) 109 mmol/L (98-107) Carbon Dioxide Level 23 mmol/L (21-32) 25 mmol/L (21-32) Anion Gap 8 (6-14) 6 (6-14) Blood Urea Nitrogen 19 mg/dL (7-20) 18 mg/dL (7-20) Creatinine 2.4 mg/dL (0.6-1.0) 1.9 mg/dL (0.6-1.0) Estimated GFR (Cockcroft-Gault) 24.9 32.6 Glucose Level 91 mg/dL (70-99) 83 mg/dL (70-99) Calcium Level 7.9 mg/dL (8.5-10.1) 7.6 mg/dL (8.5-10.1) Troponin I Quantitative 0.038 ng/mL (0.000-0.055) Urine Collection Type U cath Urine Color Patrica Urine Clarity Clear Urine pH 5.5 (<5.0-8.0) Urine Specific [place] >=1.030 (1.000-1.030) Urine Protein >=300 mg/dL (NEG-TRACE) Urine Glucose (UA) Negative mg/dL (NEG) Urine Ketones (Stick) Trace mg/dL (NEG) Urine Blood Negative (NEG) Urine Nitrite Negative (NEG) Urine Bilirubin Small (NEG) Urine Urobilinogen Dipstick 2.0 mg/dL (0.2 mg/dL) Urine Leukocyte Esterase Negative (NEG) Urine RBC Occ /HPF (0-2) Urine WBC 1-4 /HPF (0-4) Urine Squamous Epithelial Cells Few /LPF Urine Amorphous Sediment Present /HPF Urine Bacteria 0 /HPF (0-FEW) BUN/Creatinine Ratio 9 (6-20) Total Bilirubin 0.2 mg/dL (0.2-1.0) Aspartate Amino Transf (AST/SGOT) 13 U/L (15-37) Alanine Aminotransferase (ALT/SGPT) < 6 U/L (14-59) Alkaline Phosphatase 52 U/L (46-116) Total Protein 5.6 g/dL (6.4-8.2) Albumin 1.4 g/dL (3.4-5.0) Albumin/Globulin Ratio 0.3 (1.0-1.7) Laboratory Tests Test 07/19/20 11:10 Sodium Level 140 mmol/L (136-145) Potassium Level 4.7 mmol/L (3.5-5.1) Chloride Level 109 mmol/L (98-107) Carbon Dioxide Level 25 mmol/L (21-32) Anion Gap 6 (6-14) Blood Urea Nitrogen 18 mg/dL (7-20) Creatinine 1.9 mg/dL (0.6-1.0) Estimated GFR (Cockcroft-Gault) 32.6 BUN/Creatinine Ratio 9 (6-20) Glucose Level 83 mg/dL (70-99) Calcium Level 7.6 mg/dL (8.5-10.1) Total Bilirubin 0.2 mg/dL (0.2-1.0) Aspartate Amino Transf (AST/SGOT) 13 U/L (15-37) Alanine Aminotransferase (ALT/SGPT) < 6 U/L (14-59) Alkaline Phosphatase 52 U/L (46-116) Total Protein 5.6 g/dL (6.4-8.2) Albumin 1.4 g/dL (3.4-5.0) Albumin/Globulin Ratio 0.3 (1.0-1.7) Medications Current Medications Iohexol (Omnipaque 300 Mg/ml) 75 ml 1X ONCE IV Last administered on 07/18/20at 10:15; Start 07/18/20 at 10:15; Stop 07/18/20 at 10:16; Status DC Ceftriaxone Sodium (Rocephin) 1 gm 1X ONCE IVP Last administered on 07/18/20at 17:06; Start 07/18/20 at 12:00; Stop 07/18/20 at 12:01; Status DC Calcium Carbonate/ Glycine (Oscal) 500 mg TIDAFTMEAL PO Last administered on 07/19/20at 12:19; Start 07/18/20 at 18:00 Amlodipine Besylate (Norvasc) 10 mg DAILY PO Last administered on 07/19/20at 08:43; Start 07/19/20 at 09:00 Aspirin (Aspirin Chewable) 81 mg DAILY PO Last administered on 07/19/20at 08:42; Start 07/19/20 at 09:00 Bisacodyl (Dulcolax Supp) 10 mg PRN DAILY PRN AR CONSTIPATION; Start 07/18/20 at 15:45 Divalproex Sodium (Depakote Er) 1,500 mg QHS PO Last administered on 07/18/20at 20:06; Start 07/18/20 at 21:00 Fluticasone Propionate (Flonase) 2 spray QHS NS Last administered on 07/18/20at 20:06; Start 07/18/20 at 21:00 Levothyroxine Sodium (Synthroid) 75 mcg DAILY06 PO Last administered on 07/19/20at 05:38; Start 07/19/20 at 06:00 Polyethylene Glycol (miraLAX PACKET) 17 gm PRN Q24HRS PRN PO CONSTIPATION; Start 07/18/20 at 15:45 Sertraline HCl (Zoloft) 25 mg DAILY PO Last administered on 07/19/20at 08:43; Start 07/19/20 at 09:00 Topiramate (Topamax) 100 mg BID PO Last administered on 07/19/20at 08:43; Start 07/18/20 at 21:00 Albuterol/ Ipratropium (Duoneb) 3 ml RTQID NEB ; Start 07/18/20 at 16:00 Piperacillin Sod/ Tazobactam Sod (Zosyn Per Pharmacy) 1 each PRN DAILY PRN MC SEE COMMENTS; Start 07/18/20 at 15:45 Sodium Chloride 1,000 ml @ 100 mls/hr Q10H IV Last administered on 07/19/20at 12:18; Start 07/18/20 at 17:00 Ondansetron HCl (Zofran) 4 mg PRN Q6HRS PRN IVP NAUSEA/VOMITING; Start 07/18/20 at 16:00 Al Hydroxide/Mg Hydroxide (Mylanta Plus Xs) 30 ml PRN Q3HRS PRN PO HEARTBURN / GAS; Start 07/18/20 at 16:00 Calcium Carbonate/ Glycine (Tums) 500 mg PRN Q3HRS PRN PO UPSET STOMACH; Start 07/18/20 at 16:00 Zolpidem Tartrate (Ambien) 5 mg PRN QHS PRN PO INSOMNIA, MAY REPEAT IN 1HR; Start 07/18/20 at 16:00 Acetaminophen/ Hydrocodone Bitart (Lortab 5/325) 1 tab PRN Q4HRS PRN PO MILD PAIN 1-3; Start 07/18/20 at 16:00 Acetaminophen (Tylenol) 650 mg PRN Q6HRS PRN PO Headaches, Temp > 101.5F; Star t 07/18/20 at 16:00 Enoxaparin Sodium (Lovenox 40mg Syringe) 40 mg Q24H SQ Last administered on 07/18/20at 20:07; Start 07/18/20 at 21:00 Piperacillin Sod/ Tazobactam Sod 3.375 gm/Sodium Chloride 50 ml @ 100 mls/hr Q6HRS IV Last administered on 07/19/20at 12:19; Start 07/18/20 at 18:00 Active Scripts Active Bisacodyl 10 Mg Supp.rect 10 Mg AR PRN DAILY PRN 30 Days [place] Saline Nasal Gel (Sodium Chloride/Aloe Vera) 14.1 Gm Gel..gram. 1 [place] NS PRN DAILY PRN 30 Days Fluticasone Propionate Nasal [place] (Fluticasone Propionate) 16 Gm [place].susp 2 [place] NS QHS 30 Days Amlodipine Besylate 10 Mg Tablet 10 Mg PO DAILY 30 Days Reported Zofran (Ondansetron Hcl) 4 Mg Tablet 1 Tab PO Q6HRS Acetaminophen 325 Mg Tablet 650 Mg PO PRN Q6HRS PRN Combivent Respimat Inhal (Ipratropium/Albuterol Sulfate) 4 Gm Aer.w.adap 2 Inh IH QID Latuda (Lurasidone Hcl) 20 Mg Tablet 1 Tab PO DAILY 30 Days Zoloft (Sertraline Hcl) 25 Mg Tablet 1 Tab PO DAILY Nystatin 15 Gm Powder 1 Carm[place] TP PRN PRN 7 Days apply to affected area(s) Miralax (Polyethylene Glycol 3350) 17 Gm Powd.pack 1 Packet PO PRN Q24HRS PRN 2 Days dissolve in water Miralax (Polyethylene Glycol 3350) 17 Gm Powd.pack 1 Packet PO QMWF 2 Days dissolve in water Depakote Er (Divalproex Sodium) 500 Mg Tab.er.24h 3 Tab PO QHS Mylanta Maximum Strength Liq (Mag Hydrox/Aluminum Hyd/Simeth) 355 Ml Oral.susp 30 Ml PO PRN Q4HRS PRN Risperdal Consta (Risperidone Microspheres) 37.5 Mg/2 Ml Disp.syrin 50 Mg IM Q2WKS Topamax (Topiramate) 100 Mg Tablet 1 Tab PO BID Risperdal (Risperidone) 4 Mg Tablet 1 Tab PO BID Milk Of Magnesia (Magnesium Hydroxide) 400 Mg/5 Ml Oral.susp 30 Ml PO DAILY PRN Anti-Diarrhea (Loperamide Hcl) 2 Mg Tablet 2 Mg PO PRN Levothyroxine Sodium 75 Mcg Tablet 1 Tab PO DAILY Aspirin 81 Mg Tab.chew 1 Tab PO DAILY Vitals/I & O Vital Sign - Last 24 Hours 07/18/20 07/18/20 07/18/20 07/18/20 15:45 16:39 19:00 20:00 Temp 97.2 97.8 97.2 97.8 Pulse 102 65 Resp 17 19 B/P (MAP) 141/70 (93) 158/79 (105) Pulse Ox 93 94 O2 Delivery Nasal Cannula Nasal Cannula Nasal Cannula Nasal Cannula O2 Flow Rate 2.0 2.0 2.0 2.0 07/18/20 07/18/20 07/19/20 07/19/20 23:00 23:24 03:00 07:41 Temp 97.4 97.9 98.0 97.4 97.9 98.0 Pulse 80 75 85 80 Resp 22 18 20 18 B/P (MAP) 181/78 (112) 152/89 (110) 138/84 (102) 155/75 (101) Pulse Ox 97 97 97 O2 Delivery Nasal Cannula Nasal Cannula Nasal Cannula O2 Flow Rate 2.0 2.0 2.0 07/19/20 07/19/20 07/19/20 07/19/20 08:00 08:43 10:09 14:11 Temp 98.0 98.1 98.0 98.1 Pulse 80 77 77 Resp 20 18 B/P (MAP) 155/75 145/92 (109) 151/75 (100) Pulse Ox 95 96 O2 Delivery Nasal Cannula Nasal Cannula Nasal Cannula O2 Flow Rate 2.0 2.0 2.0 Intake and Output 07/18/20 07/18/20 07/19/20 15:00 23:00 07:00 Intake Total 730 ml 1400 ml Balance 730 ml 1400 ml Justicifation of Admission Dx: Justifications for Admission: Justification of Admission Dx: Yes Altered Mental Status: Altered Mental Status SANAM TAPIA MD Jul 19, 2020 15:12
[2020-07-19] MEDS: IPRATRPIUM/ALBUTEROL 0.5/2.5MG 3 ML NEBU. NEB SCH ×3 (15:28→18:25)
--- NOTE | 2020-07-19 15:31 | PDOC ---
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 Will continue treatment of HCAP with Zosyn. Suspect vasovagal syncope. She has had 3 prior admissions over the past year for similar symptoms, most recently on 06/21/2020. She was recommended outpatient loop recorder. Consultations placed to neurology MRI brain pending, with further neurological work-up if abnormal MRI. She has history of chronic leukopenia, previously evaluated by Dr. Calderon with Hematology/Oncology. However she did not follow-up with outpatient work- up. Baseline creatinine 1.6 with baseline GFR around 39.8 consistent with CKD 3b IV normal saline Calcium carbonate 3 times daily with meals Resume home medications FEN - Cardiac diet PPX - Lovenox FULL CODE Dispo - inpatient for above History of Present Illness History of Present Illness Patient is a 60-year-old female who is well-known to our service who presents from [facility] by EMS as a code stroke. Per EMS report patient with walking when she suddenly fell onto padded chairs and became unresponsive. Upon EMS arrival she was nodding her head and moaning, with right-sided weakness. Symptoms resolved upon arrival to ED and she was without any focal neurologic deficits. Code stroke initially activated, but after discussion with Dr. Juarez, TPA was not given. Chest x-ray on admission showed faint patchy opacity at the right lung base, consistent with pneumonia. History was obtained through chart review secondary to patient's clinical condition. Will admit patient for further medical management. 07/19: Patient somnolent, difficult to arouse. Denies any questions. Afebrile. Discussed with Dr. Juarez, risks exceed benefit for MRI under general anesthesia. No additional neurological studies needed. Continue treatment for HCAP. Platelets 28, will hold Lovenox. Initiate SCDs. ABG obtained by RT showed elevated PCO2 and concern for CO2 narcosis. Will place on BiPAP and consult pulmonology. Vitals/I&O Vitals/I&O: Vital Signs Date Time Temp Pulse Resp B/P (MAP) Pulse Ox O2 Delivery O2 Flow Rate FiO2 07/19/20 14:11 98.1 77 18 151/75 (100) 96 Nasal Cannula 2.0 98.1 I & O 07/18/20 07/18/20 07/19/20 15:00 23:00 07:00 Intake Total 730 ml 1400 ml Balance 730 ml 1400 ml Physical Exam General: Other (Lethargic) Heart: Regular rate Lungs: Clear, Wheezing Abdomen: Soft Extremities: No clubbing, No cyanosis Skin: No rashes, No breakdown Labs Labs: Laboratory Tests Test 07/19/20 11:10 Sodium Level 140 mmol/L (136-145) Potassium Level 4.7 mmol/L (3.5-5.1) Chloride Level 109 mmol/L (98-107) Carbon Dioxide Level 25 mmol/L (21-32) Anion Gap 6 (6-14) Blood Urea Nitrogen 18 mg/dL (7-20) Creatinine 1.9 mg/dL (0.6-1.0) Estimated GFR (Cockcroft-Gault) 32.6 BUN/Creatinine Ratio 9 (6-20) Glucose Level 83 mg/dL (70-99) Calcium Level 7.6 mg/dL (8.5-10.1) Total Bilirubin 0.2 mg/dL (0.2-1.0) Aspartate Amino Transf (AST/SGOT) 13 U/L (15-37) Alanine Aminotransferase (ALT/SGPT) < 6 U/L (14-59) Alkaline Phosphatase 52 U/L (46-116) Total Protein 5.6 g/dL (6.4-8.2) Albumin 1.4 g/dL (3.4-5.0) Albumin/Globulin Ratio 0.3 (1.0-1.7) Assessment and Plan Assessmemt and Plan Problems Medical Problems: (1) PNA (pneumonia) Status: Acute Comment Review of Relevant I have reviewed the following items bianca (where applicable) has been applied. Medications: Current Medications Medications (Trade) Dose Ordered Sig/Horace Route PRN Reason Start Time Stop Time Status Last Admin Dose Admin Calcium Carbonate/ Glycine (Oscal) 500 mg TIDAFTMEAL PO 07/18/20 18:00 07/19/20 12:19 Amlodipine Besylate (Norvasc) 10 mg DAILY PO 07/19/20 09:00 07/19/20 08:43 Aspirin (Aspirin Chewable) 81 mg DAILY PO 07/19/20 09:00 07/19/20 08:42 Divalproex Sodium (Depakote Er) 1,500 mg QHS PO 07/18/20 21:00 07/18/20 20:06 Fluticasone Propionate (Flonase) 2 spray QHS NS 07/18/20 21:00 07/18/20 20:06 Levothyroxine Sodium (Synthroid) 75 mcg DAILY06 PO 07/19/20 06:00 07/19/20 05:38 Sertraline HCl (Zoloft) 25 mg DAILY PO 07/19/20 09:00 07/19/20 08:43 Topiramate (Topamax) 100 mg BID PO 07/18/20 21:00 07/19/20 08:43 Sodium Chloride 1,000 ml @ 100 mls/hr Q10H IV 07/18/20 17:00 07/19/20 12:18 Enoxaparin Sodium (Lovenox 40mg Syringe) 40 mg Q24H SQ 07/18/20 21:00 07/18/20 20:07 Piperacillin Sod/ Tazobactam Sod 3.375 gm/Sodium Chloride 50 ml @ 100 mls/hr Q6HRS IV 07/18/20 18:00 07/19/20 12:19 Justifications for Admission Other Justification Syncope KRISS NOVA MD Jul 19, 2020 15:31
[2020-07-19 17:52] LABS: BASE EXCESS ABG 0 mmol/L (-3-3); HCO3 ABG 28 mmol/L (21-28); PO2 ABG 79 mmHg (65-108); SAT O2 ABG 94 % (92-99)
[2020-07-19 17:53] LABS: FIO2 ABG 28/ 2L NC; PCO2 ABG 65 mmHg (35-46)
--- NOTE | 2020-07-19 18:04 | NUR ---
The patient was awake, alert, oriented x 2 this morning. She follows simple commands. This afternoon, she was noted to be unarousable by RT. This nurse assessed the patient, VS BP 150/80 HR 80 RR 17 O2 sat at 99-100 on 2 LPM, she opened her eyes by shaking and mumbled. The patient's VS remained stable, sinus rhythm on the monitor bilateral pupils 3 mm briskly reactive to light. On ff up ABG was done which showed respiratory acidosis. Dr. Rubio was updated, the patient was placed on BiPAP, specimens for COVID testing sent to the lab. At present the patient is awake, alert, oriented x 1. VSS . We'll continue to monitor.
[2020-07-19 19:21] VITALS: BP 145/69
[2020-07-19] MEDS: DIVALPROEX EXTENDED RELEASE 500 MG TAB.ER.24H. PO SCH (22:22)
[2020-07-19] MEDS: FLUTICASONE 50MCG/NASAL SPRAY 16GM BOTTLE. NS SCH (22:23)
[2020-07-19 22:37] VITALS: BP 165/72
[2020-07-20] VITALS (7 sets, daily range): BP systolic 124–190; BP diastolic 58–86
[2020-07-20] MEDS: PIPERACILLIN/TAZOBACTAM 3.375 GM in IV NORMAL SALINE 50ML 50 ML IV SCH ×4 (00:13→17:06)
[2020-07-20] MEDS: LABETALOL 20 MG/4 ML DISP.SYRIN. IVP PRN (03:43)
[2020-07-20 05:00] LABS: BASO % 0 % (0-3); EOS % 0 % (0-3); HEMATOCRIT 23.5 % (36.0-47.0); HEMOGLOBIN 7.2 g/dL (12.0-15.5); LYMPH # 0.8 x10^3/uL (1.0-4.8); LYMPH % 31 % (24-48); MEAN CORPUSCULAR HEMOGLOBIN 27 pg (25-35); MEAN CORPUSCULAR HGB CONC 31 g/dL (31-37); MEAN CORPUSCULAR VOLUME 87 fL (79-100); MONO # 0.4 x10^3/uL (0.0-1.1); MONO % 15 % (0-9); NEUT # 1.3 x10^3/uL (1.8-7.7); NEUT % 54 % (31-73); RED CELL DISTRIBUTION WIDTH 22.5 % (11.5-14.5); WHITE BLOOD COUNT 2.5 x10^3/uL (4.0-11.0)
[2020-07-20 05:05] LABS: PLATELET COUNT 20 x10^3/uL (140-400)
[2020-07-20] MEDS: LEVOTHYROXINE 75 MCG TABLET PO SCH (05:35)
[2020-07-20] MEDS: IPRATRPIUM/ALBUTEROL 0.5/2.5MG 3 ML NEBU. NEB SCH ×4 (07:37→20:08)
[2020-07-20 07:47] LABS: BASE EXCESS ABG -2 mmol/L (-3-3); HCO3 ABG 23 mmol/L (21-28); PCO2 ABG 44 mmHg (35-46); PO2 ABG 59 mmHg (65-108); SAT O2 ABG 89 % (92-99)
[2020-07-20 07:48] LABS: FIO2 ABG 30 BIPAP
--- NOTE | 2020-07-20 09:09 | PDOC ---
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 Will continue treatment of HCAP with Zosyn. Suspect vasovagal syncope. She has had 3 prior admissions over the past year for similar symptoms, most recently on 06/21/2020. She was recommended outpatient loop recorder. Consultations placed to neurology MRI brain pending, with further neurological work-up if abnormal MRI. She has history of chronic leukopenia, previously evaluated by Dr. Calderon with Hematology/Oncology. However she did not follow-up with outpatient work- up. Baseline creatinine 1.6 with baseline GFR around 39.8 consistent with CKD 3b IV normal saline Calcium carbonate 3 times daily with meals Resume home medications FEN - Cardiac diet PPX - Lovenox FULL CODE Dispo - inpatient for above History of Present Illness History of Present Illness Patient is a 60-year-old female who is well-known to our service who presents from [facility] by EMS as a code stroke. Per EMS report patient with walking when she suddenly fell onto padded chairs and became unresponsive. Upon EMS arrival she was nodding her head and moaning, with right-sided weakness. Symptoms resolved upon arrival to ED and she was without any focal neurologic deficits. Code stroke initially activated, but after discussion with Dr. Juarez, TPA was not given. Chest x-ray on admission showed faint patchy opacity at the right lung base, consistent with pneumonia. History was obtained through chart review secondary to patient's clinical condition. Will admit patient for further medical management. 07/19: Patient somnolent, difficult to arouse. Denies any questions. Afebrile. Discussed with Dr. Juarez, risks exceed benefit for MRI under general anesthesia. No additional neurological studies needed. Continue treatment for HCAP. Platelets 28, will hold Lovenox. Initiate SCDs. ABG obtained by RT showed elevated PCO2 and concern for CO2 narcosis. Will place on BiPAP and consult pulmonology. 07/20: ABG yesterday showed significant hypercapnia, discussed with RT. Place patient on BiPAP overnight with improvement in PCO2. Consultation was placed to pulmonology. Platelet count 20 today, will hold VTE prophylaxis. She has a noted history of pancytopenia. Procalcitonin mildly elevated. Continue antibiotic treatment for HCAP. She continues to improve on BiPAP she may discharge back to her senior care sometime early next week to finish oral antibiotic treatment outpatient. Vitals/I&O Vitals/I&O: Vital Signs Date Time Temp Pulse Resp B/P (MAP) Pulse Ox O2 Delivery O2 Flow Rate FiO2 07/20/20 07:38 99 BiPAP/CPAP 07/20/20 06:42 98.7 81 22 152/73 (99) 2.0 98.7 I & O 07/19/20 07/19/20 07/20/20 15:00 23:00 07:00 Intake Total 540 ml 160 ml 0 ml Balance 540 ml 160 ml 0 ml Physical Exam General: Other (Lethargic) Heart: Regular rate Lungs: Wheezing, Other (On BiPAP) Abdomen: Soft Extremities: No clubbing, No cyanosis Skin: No rashes, No breakdown Labs Labs: Laboratory Tests Test 07/19/20 11:10 07/19/20 17:52 07/19/20 18:15 07/20/20 03:50 Sodium Level 140 mmol/L (136-145) Potassium Level 4.7 mmol/L (3.5-5.1) Chloride Level 109 mmol/L (98-107) Carbon Dioxide Level 25 mmol/L (21-32) Anion Gap 6 (6-14) Blood Urea Nitrogen 18 mg/dL (7-20) Creatinine 1.9 mg/dL (0.6-1.0) Estimated GFR (Cockcroft-Gault) 32.6 BUN/Creatinine Ratio 9 (6-20) Glucose Level 83 mg/dL (70-99) Calcium Level 7.6 mg/dL (8.5-10.1) Total Bilirubin 0.2 mg/dL (0.2-1.0) Aspartate Amino Transf (AST/SGOT) 13 U/L (15-37) Alanine Aminotransferase (ALT/SGPT) < 6 U/L (14-59) Alkaline Phosphatase 52 U/L (46-116) Total Protein 5.6 g/dL (6.4-8.2) Albumin 1.4 g/dL (3.4-5.0) Albumin/Globulin Ratio 0.3 (1.0-1.7) O2 Saturation 94 % (92-99) Arterial Blood pH 7.25 (7.35-7.45) Arterial Blood pCO2 at Patient Temp 65 mmHg (35-46) Arterial Blood pO2 at Patient Temp 79 mmHg (65-108) Arterial Blood HCO3 28 mmol/L (21-28) Arterial Blood Base Excess 0 mmol/L (-3-3) FiO2 28/ 2l nc SARS-CoV-2 Antigen (Rapid) Negative (NEGATIVE) White Blood Count 2.5 x10^3/uL (4.0-11.0) Red Blood Count 2.70 x10^6/uL (3.50-5.40) Hemoglobin 7.2 g/dL (12.0-15.5) Hematocrit 23.5 % (36.0-47.0) Mean Corpuscular Volume 87 fL (79-100) Mean Corpuscular Hemoglobin 27 pg (25-35) Mean Corpuscular Hemoglobin Concent 31 g/dL (31-37) Red Cell Distribution Width 22.5 % (11.5-14.5) Platelet Count 20 x10^3/uL (140-400) Neutrophils (%) (Auto) 54 % (31-73) Lymphocytes (%) (Auto) 31 % (24-48) Monocytes (%) (Auto) 15 % (0-9) Eosinophils (%) (Auto) 0 % (0-3) Basophils (%) (Auto) 0 % (0-3) Neutrophils # (Auto) 1.3 x10^3/uL (1.8-7.7) Lymphocytes # (Auto) 0.8 x10^3/uL (1.0-4.8) Monocytes # (Auto) 0.4 x10^3/uL (0.0-1.1) Eosinophils # (Auto) 0.0 x10^3/uL (0.0-0.7) Basophils # (Auto) 0.0 x10^3/uL (0.0-0.2) Procalcitonin 0.21 ng/mL (0.00-0.10) Test 07/20/20 07:43 O2 Saturation 89 % (92-99) Arterial Blood pH 7.34 (7.35-7.45) Arterial Blood pCO2 at Patient Temp 44 mmHg (35-46) Arterial Blood pO2 at Patient Temp 59 mmHg (65-108) Arterial Blood HCO3 23 mmol/L (21-28) Arterial Blood Base Excess -2 mmol/L (-3-3) FiO2 30 bipap Assessment and Plan Assessmemt and Plan Problems Medical Problems: (1) PNA (pneumonia) Status: Acute Comment Review of Relevant I have reviewed the following items bianca (where applicable) has been applied. Medications: Current Medications Medications (Trade) Dose Ordered Sig/Horace Route PRN Reason Start Time Stop Time Status Last Admin Dose Admin Labetalol HCl (Normodyne Iv Push) 20 mg PRN Q2HR PRN IVP HYPERTENSION 07/20/20 03:30 07/20/20 03:43 Justifications for Admission Other Justification Syncope KRISS NOVA MD Jul 20, 2020 09:09
--- NOTE | 2020-07-20 09:37 | CONS ---
DATE OF CONSULTATION: 07/20/2020 PULMONARY CONSULTATION ATTENDING PHYSICIAN: Brice Rubio MD REASON FOR CONSULTATION: Respiratory failure, hypercapnic type. HISTORY OF PRESENT ILLNESS: The patient is a 60-year-old female, who has past medical history of schizophrenia/bipolar disorder. She was brought into the hospital from a halfway as a code stroke. The patient was walking and when she suddenly fell onto padded chairs and became unresponsive. Upon the EMS arrival, she was nodding her head and was moaning with some right-sided weakness. The patient did resolve upon arrival to the Emergency Room without any focal neurological deficits. With a discussion with neurologist, Dr. Juarez, TPA was not given. I was consulted last evening with abnormal blood gases, which showed a pH of 7.25, pCO2 of 65 and a pO2 of 79 on 28% FiO2. We kept the patient on BiPAP overnight. Her ABGs this morning on 30% FiO2 and BiPAP showed a pH of 7.34, pCO2 of 44 and a pO2 of 59. Bicarb is 23. Her COVID test is negative. Her chest x-ray revealed faint interstitial opacity at the right base. I have been asked to see her for further evaluation. I am unable to obtain much history from the patient. She is on BiPAP. PAST MEDICAL HISTORY: Significant for hypertension and hyperlipidemia and history of asthma, seizures, depression, schizophrenia, bipolar disorder, UTI, CKD, and hypothyroidism. SURGERIES: No recent surgery. ALLERGIES: HALOPERIDOL AND DEXTRAN. REVIEW OF SYSTEMS: Unable to obtain from the patient. SOCIAL HISTORY: No reported tobacco history. MEDICATIONS: Reviewed as listed in the MRAD. PHYSICAL EXAMINATION: VITAL SIGNS: Reviewed. Her pulse ox is 100% on current BiPAP, afebrile. NECK: Supple. LUNGS: With diminished breath sounds. CARDIOVASCULAR: With a regular rate. ABDOMEN: Soft. EXTREMITIES: With trace pitting edema. LABORATORY DATA: Reviewed. Her BUN is 18, creatinine 1.9. Procalcitonin 0.21. Sodium 140. White cell count is 1.6 and hemoglobin down to 7.2 from 9.1 and platelets are 20,000. IMPRESSION: 1. Acute hypercapnic respiratory failure of unclear etiology. Reportedly, she is not a smoker. Could be contributed by transient ischemic attack symptoms/ encephalopathy. Cannot exclude the possibility of seizure. CT head with no evidence of any ischemic or hemorrhagic stroke. Not on narcotics. She is currently on BiPAP and her blood gases have improved. 2. Leukopenia and thrombocytopenia. Needs further evaluation. Recommend Hematology consultation. 3. No significant tobacco history. 4. Right lower lobe interstitial faint infiltrate. Need to cover for aspiration pneumonia. Currently on Zosyn. 5. Mildly increased procalcitonin level. Currently being covered with antibiotics. RECOMMENDATIONS: 1. We will take her off the BiPAP and place her on a Venturi mask. We will use BiPAP at nighttime and p.r.n. during the day. 2. Avoid any sedatives. 3. Continue empiric antibiotics. 4. Follow Neurology recommendations. 5. May benefit from Hematology consultation for her thrombocytopenia as well as leukopenia. 6. Continue supportive medication. 7. Discussed with RN and we will follow along with you. RAYMOND DALY MD DR: DEBI/sacha JOB#: [id number] / [id number] RAS
[2020-07-20] MEDS: IV NORMAL SALINE 1000ML BAG 1,000 ML IV SCH ×2 (10:49→21:57)
[2020-07-20] MEDS: ASPIRIN CHEWABLE 81 MG TABLET. PO SCH (10:56)
[2020-07-20] MEDS: CALCIUM CARBONATE 500 MG TABLET PO SCH ×3 (10:57→17:05)
[2020-07-20] MEDS: SERTRALINE 25 MG TABLET. PO SCH (10:57)
[2020-07-20] MEDS: TOPIRAMATE 100 MG TABLET. PO SCH ×2 (10:59→21:39)
[2020-07-20] MEDS: DIVALPROEX EXTENDED RELEASE 500 MG TAB.ER.24H. PO SCH (21:39)
[2020-07-20] MEDS: FLUTICASONE 50MCG/NASAL SPRAY 16GM BOTTLE. NS SCH (21:58)
[2020-07-21] MEDS: PIPERACILLIN/TAZOBACTAM 3.375 GM in IV NORMAL SALINE 50ML 50 ML IV SCH ×4 (00:01→17:32)
[2020-07-21 03:11] VITALS: BP 170/95
[2020-07-21] MEDS: LEVOTHYROXINE 75 MCG TABLET PO SCH (06:10)
--- NOTE | 2020-07-21 06:22 | NUR ---
IP: Pt's hx of MDRO is vre in urine on 06/02/20. Current UA is negative. No isolation needed at this time other than COVID pending.
[2020-07-21 07:00] VITALS: BP 170/83
[2020-07-21] MEDS: IPRATRPIUM/ALBUTEROL 0.5/2.5MG 3 ML NEBU. NEB SCH ×4 (08:07→19:37)
[2020-07-21 08:23] LABS: BASO % 1 % (0-3); EOS % 0 % (0-3); HEMATOCRIT 26.2 % (36.0-47.0); LYMPH # 0.9 x10^3/uL (1.0-4.8); LYMPH % 38 % (24-48); MEAN CORPUSCULAR HEMOGLOBIN 27 pg (25-35); MEAN CORPUSCULAR HGB CONC 31 g/dL (31-37); MEAN CORPUSCULAR VOLUME 88 fL (79-100); MONO # 0.2 x10^3/uL (0.0-1.1); MONO % 9 % (0-9); NEUT # 1.2 x10^3/uL (1.8-7.7); NEUT % 52 % (31-73); RED BLOOD COUNT 2.97 x10^6/uL (3.50-5.40); RED CELL DISTRIBUTION WIDTH 22.9 % (11.5-14.5); WHITE BLOOD COUNT 2.2 x10^3/uL (4.0-11.0)
[2020-07-21] MEDS: ASPIRIN CHEWABLE 81 MG TABLET. PO SCH (08:32)
[2020-07-21] MEDS: CALCIUM CARBONATE 500 MG TABLET PO SCH ×3 (08:32→17:32)
[2020-07-21] MEDS: TOPIRAMATE 100 MG TABLET. PO SCH ×2 (08:32→21:30)
[2020-07-21] MEDS: SERTRALINE 25 MG TABLET. PO SCH (08:32)
[2020-07-21] MEDS: IV NORMAL SALINE 1000ML BAG 1,000 ML IV SCH ×2 (08:34→17:31)
--- NOTE | 2020-07-21 08:44 | PDOC ---
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 BiPAP at nighttime and p.r.n. during the day. Avoid any sedatives. Continue empiric antibiotics. SEVERE thrombocytopenia Plan: Multiple previous admissions for syncope with psychiatric components over the past months, not requiring antibiotics. Will continue treatment of HCAP with Zosyn. Suspect vasovagal syncope. She has had 3 prior admissions over the past year for similar symptoms, most recently on 06/21/2020. She was recommended outpatient loop recorder. Consultations placed to neurology MRI brain pending, with further neurological work-up if abnormal MRI. She has history of chronic leukopenia, previously evaluated by Dr. Calderon with Hematology/Oncology. However she did not follow-up with outpatient work- up. Baseline creatinine 1.6 with baseline GFR around 39.8 consistent with CKD 3b IV normal saline Calcium carbonate 3 times daily with meals Resume home medications FEN - Cardiac diet PPX - Lovenox FULL CODE Dispo - inpatient for above heme consult History of Present Illness History of Present Illness Patient is a 60-year-old female who is well-known to our service who presents from [facility] by EMS as a code stroke. Per EMS report patient with walking when she suddenly fell onto padded chairs and became unresponsive. Upon EMS arrival she was nodding her head and moaning, with right-sided weakness. Symptoms resolved upon arrival to ED and she was without any focal neurologic deficits. Code stroke initially activated, but after discussion with Dr. Juarez, TPA was not given. Chest x-ray on admission showed faint patchy opacity at the right lung base, consistent with pneumonia. History was obtained through chart review secondary to patient's clinical condition. Will admit patient for further medical management. 07/19: Patient somnolent, difficult to arouse. Denies any questions. Afebrile. Discussed with Dr. Juarez, risks exceed benefit for MRI under general anesthesia. No additional neurological studies needed. Continue treatment for HCAP. Platelets 28, will hold Lovenox. Initiate SCDs. ABG obtained by RT showed elevated PCO2 and concern for CO2 narcosis. Will place on BiPAP and consult pulmonology. 07/20: ABG yesterday showed significant hypercapnia, discussed with RT. Place patient on BiPAP overnight with improvement in PCO2. Consultation was placed to pulmonology. Platelet count 20 today, will hold VTE prophylaxis. She has a noted history of pancytopenia. Procalcitonin mildly elevated. Continue antibiotic treatment for HCAP. She continues to improve on BiPAP she may discharge back to her [facility] living sometime early next week to finish oral antibiotic treatment outpatient. Vitals Vitals Vital Signs Date Time Temp Pulse Resp B/P (MAP) Pulse Ox O2 Delivery O2 Flow Rate FiO2 07/21/20 08:33 81 170/83 07/21/20 08:07 98 Venturi Mask 12.0 07/21/20 03:11 97.7 22 97.7 Physical Exam Physical Exam MITTS ON General: Somnolent, uncooperative. No acute distress HEENT: PERRLA, EOMI Lungs: Decreased breath sounds bilaterally. Normal air movement Heart: RRR, no murmurs Cardiovascular: S1, S2 Abdomen: Normal bowel sounds, Soft, No tenderness Extremities: 3+ edema bilateral lower extremities. No clubbing, No cyanosis Skin: No rashes, No significant lesion Neuro: Somnolent normal tone, Sensation intact General: Cooperative, Other (Lethargic) Heart: Regular rate Lungs: Clear, Wheezing, Other (On BiPAP) Abdomen: Normal bowel sounds, Soft, No tenderness Extremities: No clubbing, No cyanosis, No edema Skin: No rashes, No breakdown Labs LABS PATIENT: AVI VILLEGAS ACCOUNT: [id number] : 1960 LOCATION: ER AGE: 60 SEX: F EXAM STATUS: PRE ER ORD. PHYSICIAN: JUAN HILL MD REASON: syncope PROCEDURE: PORTABLE CHEST 1V XR CHEST 1V 07/18/2020 10:11 AM INDICATION: Syncope COMPARISON: 06/21/2020 TECHNIQUE: Portable frontal view of the chest is provided. FINDINGS: The cardiomediastinal silhouette is within normal limits. Increased faint patchy opacity at the right lung base may represent atelectasis versus infiltrate. There are no significant pleural effusions. There is no pulmonary vascular congestion. No pneumothorax. No suspicious osseous abnormality. IMPRESSION: Increased faint patchy opacity at the right lung base may represent atelectasis versus infiltrate. Short-term follow-up two-view chest radiograph could be of benefit. Electronically signed by: Madhu Navarro MD (07/18/2020 10:55 AM) [id number] DICTATED and SIGNED BY: MADHU NAVARRO MD DATE: 07/18/20 [id number] EXAM: CT Head without IV contrast INDICATION: Reason: code stroke, syncope / Spl. Instructions: / History: TECHNIQUE: Multi-detector row CT images were obtained of the head without the use of IV contrast. All CT scans performed at this facility utilize dose optimization techniques as appropriate to the exam, including the following: Automated exposure control and adjustment of the mA and/or KV according to patient size (this includes techniques or standardized protocols for targeted exams where dose is indication/reason for exam). COMPARISON: None FINDINGS: BRAIN PARENCHYMA: No evidence of acute intraparenchymal hemorrhage or infarct. Mild generalized parenchymal volume loss, more conspicuous in the cerebellum, is present. VENTRICLES & EXTRA-AXIAL SPACES: Ventricles are within normal limits. Basilar cisterns are patent. No pathologic extra-axial fluid collection or mass. ORBITS: Orbital contents are unremarkable. SINUSES: Visualized paranasal sinuses and mastoid air cells are clear. OSSEOUS & SOFT TISSUES: Calvarium and skull base are intact. IMPRESSION: No acute intracranial process. FOR INTERNAL CODING PURPOSES Critical result: Findings discussed with Dr. Juan Hill at 07/18/2020 10:35 AM. RESULT CODE: (C) Assessment and Plan Assessmemt and Plan Problems Medical Problems: (1) PNA (pneumonia) Status: Acute Comment Review of Relevant I have reviewed the following items bianca (where applicable) has been applied. Labs Laboratory Tests Test 07/19/20 11:10 07/19/20 17:52 07/19/20 18:15 07/20/20 03:50 Sodium Level 140 mmol/L (136-145) Potassium Level 4.7 mmol/L (3.5-5.1) Chloride Level 109 mmol/L (98-107) Carbon Dioxide Level 25 mmol/L (21-32) Anion Gap 6 (6-14) Blood Urea Nitrogen 18 mg/dL (7-20) Creatinine 1.9 mg/dL (0.6-1.0) Estimated GFR (Cockcroft-Gault) 32.6 BUN/Creatinine Ratio 9 (6-20) Glucose Level 83 mg/dL (70-99) Calcium Level 7.6 mg/dL (8.5-10.1) Total Bilirubin 0.2 mg/dL (0.2-1.0) Aspartate Amino Transf (AST/SGOT) 13 U/L (15-37) Alanine Aminotransferase (ALT/SGPT) < 6 U/L (14-59) Alkaline Phosphatase 52 U/L (46-116) Total Protein 5.6 g/dL (6.4-8.2) Albumin 1.4 g/dL (3.4-5.0) Albumin/Globulin Ratio 0.3 (1.0-1.7) O2 Saturation 94 % (92-99) Arterial Blood pH 7.25 (7.35-7.45) Arterial Blood pCO2 at Patient Temp 65 mmHg (35-46) Arterial Blood pO2 at Patient Temp 79 mmHg (65-108) Arterial Blood HCO3 28 mmol/L (21-28) Arterial Blood Base Excess 0 mmol/L (-3-3) FiO2 28/ 2l nc SARS-CoV-2 Antigen (Rapid) Negative (NEGATIVE) White Blood Count 2.5 x10^3/uL (4.0-11.0) Red Blood Count 2.70 x10^6/uL (3.50-5.40) Hemoglobin 7.2 g/dL (12.0-15.5) Hematocrit 23.5 % (36.0-47.0) Mean Corpuscular Volume 87 fL (79-100) Mean Corpuscular Hemoglobin 27 pg (25-35) Mean Corpuscular Hemoglobin Concent 31 g/dL (31-37) Red Cell Distribution Width 22.5 % (11.5-14.5) Platelet Count 20 x10^3/uL (140-400) Neutrophils (%) (Auto) 54 % (31-73) Lymphocytes (%) (Auto) 31 % (24-48) Monocytes (%) (Auto) 15 % (0-9) Eosinophils (%) (Auto) 0 % (0-3) Basophils (%) (Auto) 0 % (0-3) Neutrophils # (Auto) 1.3 x10^3/uL (1.8-7.7) Lymphocytes # (Auto) 0.8 x10^3/uL (1.0-4.8) Monocytes # (Auto) 0.4 x10^3/uL (0.0-1.1) Eosinophils # (Auto) 0.0 x10^3/uL (0.0-0.7) Basophils # (Auto) 0.0 x10^3/uL (0.0-0.2) Procalcitonin 0.21 ng/mL (0.00-0.10) Test 07/20/20 07:43 O2 Saturation 89 % (92-99) Arterial Blood pH 7.34 (7.35-7.45) Arterial Blood pCO2 at Patient Temp 44 mmHg (35-46) Arterial Blood pO2 at Patient Temp 59 mmHg (65-108) Arterial Blood HCO3 23 mmol/L (21-28) Arterial Blood Base Excess -2 mmol/L (-3-3) FiO2 30 bipap Medications Current Medications Iohexol (Omnipaque 300 Mg/ml) 75 ml 1X ONCE IV Last administered on 07/18/20at 10:15; Start 07/18/20 at 10:15; Stop 07/18/20 at 10:16; Status DC Ceftriaxone Sodium (Rocephin) 1 gm 1X ONCE IVP Last administered on 07/18/20at 17:06; Start 07/18/20 at 12:00; Stop 07/18/20 at 12:01; Status DC Calcium Carbonate/ Glycine (Oscal) 500 mg TIDAFTMEAL PO Last administered on 07/21/20at 08:32; Start 07/18/20 at 18:00 Amlodipine Besylate (Norvasc) 10 mg DAILY PO Last administered on 07/21/20at 08:33; Start 07/19/20 at 09:00 Aspirin (Aspirin Chewable) 81 mg DAILY PO Last administered on 07/21/20at 08:32; Start 07/19/20 at 09:00 Bisacodyl (Dulcolax Supp) 10 mg PRN DAILY PRN TN CONSTIPATION; Start 07/18/20 at 15:45 Divalproex Sodium (Depakote Er) 1,500 mg QHS PO Last administered on 07/20/20at 21:39; Start 07/18/20 at 21:00 Fluticasone Propionate (Flonase) 2 spray QHS NS Last administered on 07/20/20at 21:58; Start 07/18/20 at 21:00 Levothyroxine Sodium (Synthroid) 75 mcg DAILY06 PO Last administered on 07/21/20at 06:10; Start 07/19/20 at 06:00 Polyethylene Glycol (miraLAX PACKET) 17 gm PRN Q24HRS PRN PO CONSTIPATION; Start 07/18/20 at 15:45 Sertraline HCl (Zoloft) 25 mg DAILY PO Last administered on 07/21/20at 08:32; Start 07/19/20 at 09:00 Topiramate (Topamax) 100 mg BID PO Last administered on 07/21/20at 08:32; Start 07/18/20 at 21:00 Albuterol/ Ipratropium (Duoneb) 3 ml RTQID NEB Last administered on 07/21/20at 08:07; Start 07/18/20 at 16:00 Piperacillin Sod/ Tazobactam Sod (Zosyn Per Pharmacy) 1 each PRN DAILY PRN MC SEE COMMENTS; Start 07/18/20 at 15:45 Sodium Chloride 1,000 ml @ 100 mls/hr Q10H IV Last administered on 07/21/20at 08:34; Start 07/18/20 at 17:00 Ondansetron HCl (Zofran) 4 mg PRN Q6HRS PRN IVP NAUSEA/VOMITING; Start 07/18/20 at 16:00 Al Hydroxide/Mg Hydroxide (Mylanta Plus Xs) 30 ml PRN Q3HRS PRN PO HEARTBURN / GAS; Start 07/18/20 at 16:00 Calcium Carbonate/ Glycine (Tums) 500 mg PRN Q3HRS PRN PO UPSET STOMACH; Start 07/18/20 at 16:00 Zolpidem Tartrate (Ambien) 5 mg PRN QHS PRN PO INSOMNIA, MAY REPEAT IN 1HR; Start 07/18/20 at 16:00 Acetaminophen/ Hydrocodone Bitart (Lortab 5/325) 1 tab PRN Q4HRS PRN PO MILD PAIN 1-3; Start 07/18/20 at 16:00 Acetaminophen (Tylenol) 650 mg PRN Q6HRS PRN PO Headaches, Temp > 101.5F; Start 07/18/20 at 16:00 Enoxaparin Sodium (Lovenox 40mg Syringe) 40 mg Q24H SQ Last administered on 07/18/20at 20:07; Start 07/18/20 at 21:00; Stop 07/19/20 at 15:38; Status DC Piperacillin Sod/ Tazobactam Sod 3.375 gm/Sodium Chloride 50 ml @ 100 mls/hr Q6HRS IV Last administered on 07/21/20at 06:11; Start 07/18/20 at 18:00 Labetalol HCl (Normodyne Iv Push) 20 mg PRN Q2HR PRN IVP HYPERTENSION Last administered on 07/20/20at 03:43; Start 07/20/20 at 03:30 Active Scripts Active Bisacodyl 10 Mg Supp.rect 10 Mg TN PRN DAILY PRN 30 Days [place] Saline Nasal Gel (Sodium Chloride/Aloe Vera) 14.1 Gm Gel..gram. 1 [place] NS PRN DAILY PRN 30 Days Fluticasone Propionate Nasal [place] (Fluticasone Propionate) 16 Gm [place].susp 2 [place] NS QHS 30 Days Amlodipine Besylate 10 Mg Tablet 10 Mg PO DAILY 30 Days Reported Zofran (Ondansetron Hcl) 4 Mg Tablet 1 Tab PO Q6HRS Acetaminophen 325 Mg Tablet 650 Mg PO PRN Q6HRS PRN Combivent Respimat Inhal (Ipratropium/Albuterol Sulfate) 4 Gm Aer.w.adap 2 Inh IH QID Latuda (Lurasidone Hcl) 20 Mg Tablet 1 Tab PO DAILY 30 Days Zoloft (Sertraline Hcl) 25 Mg Tablet 1 Tab PO DAILY Nystatin 15 Gm Powder 1 [place] TP PRN PRN 7 Days apply to affected area(s) Miralax (Polyethylene Glycol 3350) 17 Gm Powd.pack 1 Packet PO PRN Q24HRS PRN 2 Days dissolve in water Miralax (Polyethylene Glycol 3350) 17 Gm Powd.pack 1 Packet PO QMWF 2 Days dissolve in water Depakote Er (Divalproex Sodium) 500 Mg Tab.er.24h 3 Tab PO QHS Mylanta Maximum Strength Liq (Mag Hydrox/Aluminum Hyd/Simeth) 355 Ml Oral.susp 30 Ml PO PRN Q4HRS PRN Risperdal Consta (Risperidone Microspheres) 37.5 Mg/2 Ml Disp.syrin 50 Mg IM Q2WKS Topamax (Topiramate) 100 Mg Tablet 1 Tab PO BID Risperdal (Risperidone) 4 Mg Tablet 1 Tab PO BID Milk Of Magnesia (Magnesium Hydroxide) 400 Mg/5 Ml Oral.susp 30 Ml PO DAILY PRN Anti-Diarrhea (Loperamide Hcl) 2 Mg Tablet 2 Mg PO PRN Levothyroxine Sodium 75 Mcg Tablet 1 Tab PO DAILY Aspirin 81 Mg Tab.chew 1 Tab PO DAILY Vitals/I & O Vital Sign - Last 24 Hours 07/20/20 07/20/20 07/20/20 07/20/20 10:47 10:59 11:05 14:49 Temp 98.3 98.0 98.3 98.0 Pulse 75 79 77 Resp 22 22 B/P (MAP) 136/68 154/78 (103) 124/58 (80) Pulse Ox 99 98 96 O2 Delivery BiPAP/CPAP BiPAP/CPAP Venturi Mask 07/20/20 07/20/20 07/20/20 07/20/20 16:01 18:30 20:00 20:09 Temp 97.7 97.7 Pulse 79 Resp 22 B/P (MAP) 140/71 (94) Pulse Ox 98 99 100 O2 Delivery Venturi Mask Venturi Mask BiPAP/CPAP O2 Flow Rate 12.0 07/20/20 07/21/20 07/21/20 07/21/20 23:40 00:25 03:11 04:25 Temp 98.4 97.7 98.4 97.7 Pulse 66 72 Resp 20 22 B/P (MAP) 185/71 (109) 170/95 (120) Pulse Ox 100 100 95 O2 Delivery BiPAP/CPAP BiPAP/CPAP BiPAP/CPAP BiPAP/CPAP 07/21/20 07/21/20 08:07 08:33 Pulse 81 B/P (MAP) 170/83 Pulse Ox 98 O2 Delivery Venturi Mask O2 Flow Rate 12.0 Intake and Output 07/20/20 07/20/20 07/21/20 15:00 23:00 07:00 Intake Total 300 ml 240 ml 200 ml Balance 300 ml 240 ml 200 ml Justicifation of Admission Dx: Justifications for Admission: Justification of Admission Dx: Yes Altered Mental Status: Altered Mental Status ROGER ALVARADO MD Jul 21, 2020 08:44
[2020-07-21 09:02] LABS: PLATELET COUNT 21 x10^3/uL (140-400)
--- NOTE | 2020-07-21 10:23 | PDOC ---
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 Strabismus Unable to tolerate MRI, canceled it Pneumonia, hypercapnia, on BiPAP now Plan Further outpatient cardiac testing such as long-term monitoring No additional neurological studies needed Treatment of pneumonia Subjective None Objective Vital Signs Date Time Temp Pulse Resp B/P (MAP) Pulse Ox O2 Delivery O2 Flow Rate FiO2 07/21/20 08:33 81 170/83 07/21/20 08:07 98 Venturi Mask 12.0 07/21/20 07:00 97.1 22 97.1 Intake and Output 07/21/20 07:00 Intake Total 740 ml Balance 740 ml Intake Oral 740 ml # Voids 2 # Bowel Movements 1 PHYSICAL EXAM Alert. Mittens on, says that "I am full." PERRL. EOMI, bilateral strabismus. CN: no focal findings. Muscle tone: normal. Muscle strength: 4/5 DTR: 2+ Plantar reflex: Flexor Gait: not examined in bed. Sensory exam: no abnormal findings. No cerebellar signs elicited. Review of Relevant I have reviewed the following items bianca (where applicable) has been applied. Labs Laboratory Tests Test 07/19/20 11:10 07/19/20 17:52 07/19/20 18:15 07/20/20 03:50 Sodium Level 140 mmol/L (136-145) Potassium Level 4.7 mmol/L (3.5-5.1) Chloride Level 109 mmol/L (98-107) Carbon Dioxide Level 25 mmol/L (21-32) Anion Gap 6 (6-14) Blood Urea Nitrogen 18 mg/dL (7-20) Creatinine 1.9 mg/dL (0.6-1.0) Estimated GFR (Cockcroft-Gault) 32.6 BUN/Creatinine Ratio 9 (6-20) Glucose Level 83 mg/dL (70-99) Calcium Level 7.6 mg/dL (8.5-10.1) Total Bilirubin 0.2 mg/dL (0.2-1.0) Aspartate Amino Transf (AST/SGOT) 13 U/L (15-37) Alanine Aminotransferase (ALT/SGPT) < 6 U/L (14-59) Alkaline Phosphatase 52 U/L (46-116) Total Protein 5.6 g/dL (6.4-8.2) Albumin 1.4 g/dL (3.4-5.0) Albumin/Globulin Ratio 0.3 (1.0-1.7) O2 Saturation 94 % (92-99) Arterial Blood pH 7.25 (7.35-7.45) Arterial Blood pCO2 at Patient Temp 65 mmHg (35-46) Arterial Blood pO2 at Patient Temp 79 mmHg (65-108) Arterial Blood HCO3 28 mmol/L (21-28) Arterial Blood Base Excess 0 mmol/L (-3-3) FiO2 28/ 2l nc SARS-CoV-2 Antigen (Rapid) Negative (NEGATIVE) White Blood Count 2.5 x10^3/uL (4.0-11.0) Red Blood Count 2.70 x10^6/uL (3.50-5.40) Hemoglobin 7.2 g/dL (12.0-15.5) Hematocrit 23.5 % (36.0-47.0) Mean Corpuscular Volume 87 fL (79-100) Mean Corpuscular Hemoglobin 27 pg (25-35) Mean Corpuscular Hemoglobin Concent 31 g/dL (31-37) Red Cell Distribution Width 22.5 % (11.5-14.5) Platelet Count 20 x10^3/uL (140-400) Neutrophils (%) (Auto) 54 % (31-73) Lymphocytes (%) (Auto) 31 % (24-48) Monocytes (%) (Auto) 15 % (0-9) Eosinophils (%) (Auto) 0 % (0-3) Basophils (%) (Auto) 0 % (0-3) Neutrophils # (Auto) 1.3 x10^3/uL (1.8-7.7) Lymphocytes # (Auto) 0.8 x10^3/uL (1.0-4.8) Monocytes # (Auto) 0.4 x10^3/uL (0.0-1.1) Eosinophils # (Auto) 0.0 x10^3/uL (0.0-0.7) Basophils # (Auto) 0.0 x10^3/uL (0.0-0.2) Procalcitonin 0.21 ng/mL (0.00-0.10) Test 07/20/20 07:43 07/21/20 07:35 O2 Saturation 89 % (92-99) Arterial Blood pH 7.34 (7.35-7.45) Arterial Blood pCO2 at Patient Temp 44 mmHg (35-46) Arterial Blood pO2 at Patient Temp 59 mmHg (65-108) Arterial Blood HCO3 23 mmol/L (21-28) Arterial Blood Base Excess -2 mmol/L (-3-3) FiO2 30 bipap White Blood Count 2.2 x10^3/uL (4.0-11.0) Red Blood Count 2.97 x10^6/uL (3.50-5.40) Hemoglobin 8.0 g/dL (12.0-15.5) Hematocrit 26.2 % (36.0-47.0) Mean Corpuscular Volume 88 fL (79-100) Mean Corpuscular Hemoglobin 27 pg (25-35) Mean Corpuscular Hemoglobin Concent 31 g/dL (31-37) Red Cell Distribution Width 22.9 % (11.5-14.5) Platelet Count 21 x10^3/uL (140-400) Neutrophils (%) (Auto) 52 % (31-73) Lymphocytes (%) (Auto) 38 % (24-48) Monocytes (%) (Auto) 9 % (0-9) Eosinophils (%) (Auto) 0 % (0-3) Basophils (%) (Auto) 1 % (0-3) Neutrophils # (Auto) 1.2 x10^3/uL (1.8-7.7) Lymphocytes # (Auto) 0.9 x10^3/uL (1.0-4.8) Monocytes # (Auto) 0.2 x10^3/uL (0.0-1.1) Eosinophils # (Auto) 0.0 x10^3/uL (0.0-0.7) Basophils # (Auto) 0.0 x10^3/uL (0.0-0.2) Laboratory Tests Test 07/21/20 07:35 White Blood Count 2.2 x10^3/uL (4.0-11.0) Red Blood Count 2.97 x10^6/uL (3.50-5.40) Hemoglobin 8.0 g/dL (12.0-15.5) Hematocrit 26.2 % (36.0-47.0) Mean Corpuscular Volume 88 fL (79-100) Mean Corpuscular Hemoglobin 27 pg (25-35) Mean Corpuscular Hemoglobin Concent 31 g/dL (31-37) Red Cell Distribution Width 22.9 % (11.5-14.5) Platelet Count 21 x10^3/uL (140-400) Neutrophils (%) (Auto) 52 % (31-73) Lymphocytes (%) (Auto) 38 % (24-48) Monocytes (%) (Auto) 9 % (0-9) Eosinophils (%) (Auto) 0 % (0-3) Basophils (%) (Auto) 1 % (0-3) Neutrophils # (Auto) 1.2 x10^3/uL (1.8-7.7) Lymphocytes # (Auto) 0.9 x10^3/uL (1.0-4.8) Monocytes # (Auto) 0.2 x10^3/uL (0.0-1.1) Eosinophils # (Auto) 0.0 x10^3/uL (0.0-0.7) Basophils # (Auto) 0.0 x10^3/uL (0.0-0.2) Medications Current Medications Iohexol (Omnipaque 300 Mg/ml) 75 ml 1X ONCE IV Last administered on 07/18/20at 10:15; Start 07/18/20 at 10:15; Stop 07/18/20 at 10:16; Status DC Ceftriaxone Sodium (Rocephin) 1 gm 1X ONCE IVP Last administered on 07/18/20at 17:06; Start 07/18/20 at 12:00; Stop 07/18/20 at 12:01; Status DC Calcium Carbonate/ Glycine (Oscal) 500 mg TIDAFTMEAL PO Last administered on 07/21/20at 08:32; Start 07/18/20 at 18:00 Amlodipine Besylate (Norvasc) 10 mg DAILY PO Last administered on 07/21/20at 08:33; Start 07/19/20 at 09:00 Aspirin (Aspirin Chewable) 81 mg DAILY PO Last administered on 07/21/20at 08:32; Start 07/19/20 at 09:00 Bisacodyl (Dulcolax Supp) 10 mg PRN DAILY PRN OK CONSTIPATION; Start 07/18/20 at 15:45 Divalproex Sodium (Depakote Er) 1,500 mg QHS PO Last administered on 07/20/20at 21:39; Start 07/18/20 at 21:00 Fluticasone Propionate (Flonase) 2 spray QHS NS Last administered on 07/20/20at 21:58; Start 07/18/20 at 21:00 Levothyroxine Sodium (Synthroid) 75 mcg DAILY06 PO Last administered on 07/21/20at 06:10; Start 07/19/20 at 06:00 Polyethylene Glycol (miraLAX PACKET) 17 gm PRN Q24HRS PRN PO CONSTIPATION; Start 07/18/20 at 15:45 Sertraline HCl (Zoloft) 25 mg DAILY PO Last administered on 07/21/20at 08:32; Start 07/19/20 at 09:00 Topiramate (Topamax) 100 mg BID PO Last administered on 07/21/20at 08:32; Start 07/18/20 at 21:00 Albuterol/ Ipratropium (Duoneb) 3 ml RTQID NEB Last administered on 07/21/20at 08:07; Start 07/18/20 at 16:00 Piperacillin Sod/ Tazobactam Sod (Zosyn Per Pharmacy) 1 each PRN DAILY PRN MC SEE COMMENTS; Start 07/18/20 at 15:45 Sodium Chloride 1,000 ml @ 100 mls/hr Q10H IV Last administered on 07/21/20at 08:34; Start 07/18/20 at 17:00 Ondansetron HCl (Zofran) 4 mg PRN Q6HRS PRN IVP NAUSEA/VOMITING; Start 07/18/20 at 16:00 Al Hydroxide/Mg Hydroxide (Mylanta Plus Xs) 30 ml PRN Q3HRS PRN PO HEARTBURN / GAS; Start 07/18/20 at 16:00 Calcium Carbonate/ Glycine (Tums) 500 mg PRN Q3HRS PRN PO UPSET STOMACH; Start 07/18/20 at 16:00 Zolpidem Tartrate (Ambien) 5 mg PRN QHS PRN PO INSOMNIA, MAY REPEAT IN 1HR; Start 07/18/20 at 16:00 Acetaminophen/ Hydrocodone Bitart (Lortab 5/325) 1 tab PRN Q4HRS PRN PO MILD PAIN 1-3; Start 07/18/20 at 16:00 Acetaminophen (Tylenol) 650 mg PRN Q6HRS PRN PO Headaches, Temp > 101.5F; Start 07/18/20 at 16:00 Enoxaparin Sodium (Lovenox 40mg Syringe) 40 mg Q24H SQ Last administered on 07/18/20at 20:07; Start 07/18/20 at 21:00; Stop 07/19/20 at 15:38; Status DC Piperacillin Sod/ Tazobactam Sod 3.375 gm/Sodium Chloride 50 ml @ 100 mls/hr Q6HRS IV Last administered on 07/21/20at 06:11; Start 07/18/20 at 18:00 Labetalol HCl (Normodyne Iv Push) 20 mg PRN Q2HR PRN IVP HYPERTENSION Last administered on 07/20/20at 03:43; Start 07/20/20 at 03:30 Active Scripts Active Bisacodyl 10 Mg Supp.rect 10 Mg OK PRN DAILY PRN 30 Days [place] Saline Nasal Gel (Sodium Chloride/Aloe Vera) 14.1 Gm Gel..gram. 1 [place] NS PRN DAILY PRN 30 Days Fluticasone Propionate Nasal [place] (Fluticasone Propionate) 16 Gm [place].susp 2 [place] NS QHS 30 Days Amlodipine Besylate 10 Mg Tablet 10 Mg PO DAILY 30 Days Reported Zofran (Ondansetron Hcl) 4 Mg Tablet 1 Tab PO Q6HRS Acetaminophen 325 Mg Tablet 650 Mg PO PRN Q6HRS PRN Combivent Respimat Inhal (Ipratropium/Albuterol Sulfate) 4 Gm Aer.w.adap 2 Inh IH QID Latuda (Lurasidone Hcl) 20 Mg Tablet 1 Tab PO DAILY 30 Days Zoloft (Sertraline Hcl) 25 Mg Tablet 1 Tab PO DAILY Nystatin 15 Gm Powder 1 Carmen TP PRN PRN 7 Days apply to affected area(s) Miralax (Polyethylene Glycol 3350) 17 Gm Powd.pack 1 Packet PO PRN Q24HRS PRN 2 Days dissolve in water Miralax (Polyethylene Glycol 3350) 17 Gm Powd.pack 1 Packet PO QMWF 2 Days dissolve in water Depakote Er (Divalproex Sodium) 500 Mg Tab.er.24h 3 Tab PO QHS Mylanta Maximum Strength Liq (Mag Hydrox/Aluminum Hyd/Simeth) 355 Ml Oral.susp 3 0 Ml PO PRN Q4HRS PRN Risperdal Consta (Risperidone Microspheres) 37.5 Mg/2 Ml Disp.syrin 50 Mg IM Q2WKS Topamax (Topiramate) 100 Mg Tablet 1 Tab PO BID Risperdal (Risperidone) 4 Mg Tablet 1 Tab PO BID Milk Of Magnesia (Magnesium Hydroxide) 400 Mg/5 Ml Oral.susp 30 Ml PO DAILY PRN Anti-Diarrhea (Loperamide Hcl) 2 Mg Tablet 2 Mg PO PRN Levothyroxine Sodium 75 Mcg Tablet 1 Tab PO DAILY Aspirin 81 Mg Tab.chew 1 Tab PO DAILY Vitals/I & O Vital Sign - Last 24 Hours 07/20/20 07/20/20 07/20/20 07/20/20 10:47 10:59 11:05 14:49 Temp 98.3 98.0 98.3 98.0 Pulse 75 79 77 Resp 22 B/P (MAP) 136/68 154/78 (103) 124/58 (80) Pulse Ox 99 98 96 O2 Delivery BiPAP/CPAP BiPAP/CPAP Venturi Mask 07/20/20 07/20/20 07/20/20 07/20/20 16:01 18:30 20:00 20:09 Temp 97.7 97.7 Pulse 79 Resp 22 B/P (MAP) 140/71 (94) Pulse Ox 98 99 100 O2 Delivery Venturi Mask Venturi Mask BiPAP/CPAP O2 Flow Rate 12.0 07/20/20 07/21/20 07/21/20 07/21/20 23:40 00:25 03:11 04:25 Temp 98.4 97.7 98.4 97.7 Pulse 66 72 Resp 20 22 B/P (MAP) 185/71 (109) 170/95 (120) Pulse Ox 100 100 95 O2 Delivery BiPAP/CPAP BiPAP/CPAP BiPAP/CPAP BiPAP/CPAP 2/07/21/20 07/21/20 07:00 08:07 08:33 Temp 97.1 97.1 Pulse 72 81 Resp 22 B/P (MAP) 170/83 (112) 170/83 Pulse Ox 94 98 O2 Delivery BiPAP/CPAP Venturi Mask O2 Flow Rate 12.0 Intake and Output 07/20/20 07/20/20 07/21/20 15:00 23:00 07:00 Intake Total 300 ml 240 ml 200 ml Balance 300 ml 240 ml 200 ml Justicifation of Admission Dx: Justifications for Admission: Justification of Admission Dx: Yes Altered Mental Status: Altered Mental Status SANAM TAPIA MD Jul 21, 2020 10:23
[2020-07-21 11:00] VITALS: BP 169/83
--- NOTE | 2020-07-21 12:14 | PDOC ---
PULMONARY PROGRESS NOTES DATE: 07/21/20 TIME: 12:10 Subjective Pt. wore BIPAP last night more awake and alert today afebrile no other concerns Vitals Vital Signs Date Time Temp Pulse Resp B/P (MAP) Pulse Ox O2 Delivery O2 Flow Rate FiO2 07/21/20 11:47 94 Room Air 07/21/20 08:33 81 170/83 07/21/20 08:07 12.0 07/21/20 07:00 97.1 22 97.1 ROS: No Nausea, No Chest Pain, No Abdominal Pain, No Increase Cough General: Alert, Oriented X4 Lungs: Clear, Wheezing, Other (On BiPAP) Cardiovascular: S1, S2 Labs Laboratory Tests Test 07/19/20 17:52 07/19/20 18:15 07/20/20 03:50 07/20/20 07:43 O2 Saturation 94 % (92-99) 89 % (92-99) Arterial Blood pH 7.25 (7.35-7.45) 7.34 (7.35-7.45) Arterial Blood pCO2 at Patient Temp 65 mmHg (35-46) 44 mmHg (35-46) Arterial Blood pO2 at Patient Temp 79 mmHg (65-108) 59 mmHg (65-108) Arterial Blood HCO3 28 mmol/L (21-28) 23 mmol/L (21-28) Arterial Blood Base Excess 0 mmol/L (-3-3) -2 mmol/L (-3-3) FiO2 28/ 2l nc 30 bipap SARS-CoV-2 Antigen (Rapid) Negative (NEGATIVE) White Blood Count 2.5 x10^3/uL (4.0-11.0) Red Blood Count 2.70 x10^6/uL (3.50-5.40) Hemoglobin 7.2 g/dL (12.0-15.5) Hematocrit 23.5 % (36.0-47.0) Mean Corpuscular Volume 87 fL (79-100) Mean Corpuscular Hemoglobin 27 pg (25-35) Mean Corpuscular Hemoglobin Concent 31 g/dL (31-37) Red Cell Distribution Width 22.5 % (11.5-14.5) Platelet Count 20 x10^3/uL (140-400) Neutrophils (%) (Auto) 54 % (31-73) Lymphocytes (%) (Auto) 31 % (24-48) Monocytes (%) (Auto) 15 % (0-9) Eosinophils (%) (Auto) 0 % (0-3) Basophils (%) (Auto) 0 % (0-3) Neutrophils # (Auto) 1.3 x10^3/uL (1.8-7.7) Lymphocytes # (Auto) 0.8 x10^3/uL (1.0-4.8) Monocytes # (Auto) 0.4 x10^3/uL (0.0-1.1) Eosinophils # (Auto) 0.0 x10^3/uL (0.0-0.7) Basophils # (Auto) 0.0 x10^3/uL (0.0-0.2) Procalcitonin 0.21 ng/mL (0.00-0.10) Test 07/21/20 07:35 White Blood Count 2.2 x10^3/uL (4.0-11.0) Red Blood Count 2.97 x10^6/uL (3.50-5.40) Hemoglobin 8.0 g/dL (12.0-15.5) Hematocrit 26.2 % (36.0-47.0) Mean Corpuscular Volume 88 fL (79-100) Mean Corpuscular Hemoglobin 27 pg (25-35) Mean Corpuscular Hemoglobin Concent 31 g/dL (31-37) Red Cell Distribution Width 22.9 % (11.5-14.5) Platelet Count 21 x10^3/uL (140-400) Neutrophils (%) (Auto) 52 % (31-73) Lymphocytes (%) (Auto) 38 % (24-48) Monocytes (%) (Auto) 9 % (0-9) Eosinophils (%) (Auto) 0 % (0-3) Basophils (%) (Auto) 1 % (0-3) Neutrophils # (Auto) 1.2 x10^3/uL (1.8-7.7) Lymphocytes # (Auto) 0.9 x10^3/uL (1.0-4.8) Monocytes # (Auto) 0.2 x10^3/uL (0.0-1.1) Eosinophils # (Auto) 0.0 x10^3/uL (0.0-0.7) Basophils # (Auto) 0.0 x10^3/uL (0.0-0.2) Laboratory Tests Test 07/21/20 07:35 White Blood Count 2.2 x10^3/uL (4.0-11.0) Red Blood Count 2.97 x10^6/uL (3.50-5.40) Hemoglobin 8.0 g/dL (12.0-15.5) Hematocrit 26.2 % (36.0-47.0) Mean Corpuscular Volume 88 fL (79-100) Mean Corpuscular Hemoglobin 27 pg (25-35) Mean Corpuscular Hemoglobin Concent 31 g/dL (31-37) Red Cell Distribution Width 22.9 % (11.5-14.5) Platelet Count 21 x10^3/uL (140-400) Neutrophils (%) (Auto) 52 % (31-73) Lymphocytes (%) (Auto) 38 % (24-48) Monocytes (%) (Auto) 9 % (0-9) Eosinophils (%) (Auto) 0 % (0-3) Basophils (%) (Auto) 1 % (0-3) Neutrophils # (Auto) 1.2 x10^3/uL (1.8-7.7) Lymphocytes # (Auto) 0.9 x10^3/uL (1.0-4.8) Monocytes # (Auto) 0.2 x10^3/uL (0.0-1.1) Eosinophils # (Auto) 0.0 x10^3/uL (0.0-0.7) Basophils # (Auto) 0.0 x10^3/uL (0.0-0.2) Medications Active Scripts Medications Dose Route/Sig Max Daily Dose Days Date Category Dose Instructions Bisacodyl 10 Mg Supp.rect 10 Mg OR PRN DAILY PRN 30 06/25/20 Rx [place] Saline Nasal Gel (Sodium Chloride/Aloe Vera) 14.1 Gm Gel..gram. 1 [place] NS PRN DAILY PRN 30 06/25/20 Rx Fluticasone Propionate Nasal [place] (Fluticasone Propionate) 16 Gm [place].susp 2 [place] NS QHS 30 06/25/20 Rx Amlodipine Besylate 10 Mg Tablet 10 Mg PO DAILY 30 06/25/20 Rx Zofran (Ondansetron Hcl) 4 Mg Tablet 1 Tab PO Q6HRS 06/21/20 Reported Acetaminophen 325 Mg Tablet 650 Mg PO PRN Q6HRS PRN 06/02/20 Reported Combivent Respimat Inhal (Ipratropium/Albuterol Sulfate) 4 Gm Aer.w.adap 2 Inh IH QID 05/24/20 Reported Latuda (Lurasidone Hcl) 20 Mg Tablet 1 Tab PO DAILY 30 05/24/20 Reported Zoloft (Sertraline Hcl) 25 Mg Tablet 1 Tab PO DAILY 11/09/19 Reported Nystatin 15 Gm Powder 1 [place] TP PRN PRN 7 11/09/19 Reported apply to affected area(s) Miralax (Polyethylene Glycol 3350) 17 Gm Powd.pack 1 Packet PO PRN Q24HRS PRN 2 11/09/19 Reported dissolve in water Miralax (Polyethylene Glycol 3350) 17 Gm Powd.pack 1 Packet PO QMWF 2 11/09/19 Reported dissolve in water Depakote Er (Divalproex Sodium) 500 Mg Tab.er.24h 3 Tab PO QHS 11/09/19 Reported Mylanta Maximum Strength Liq (Mag Hydrox/Aluminum Hyd/Simeth) 355 Ml Oral.susp 30 Ml PO PRN Q4HRS PRN 11/09/19 Reported Risperdal Consta (Risperidone Microspheres) 37.5 Mg/2 Ml Disp.syrin 50 Mg IM Q2WKS 01/03/17 Reported Topamax (Topiramate) 100 Mg Tablet 1 Tab PO BID 01/03/17 Reported Risperdal (Risperidone) 4 Mg Tablet 1 Tab PO BID 01/03/17 Reported Milk Of Magnesia (Magnesium Hydroxide) 400 Mg/5 Ml Oral.susp 30 Ml PO DAILY PRN 01/03/17 Reported Anti-Diarrhea (Loperamide Hcl) 2 Mg Tablet 2 Mg PO PRN 01/03/17 Reported Levothyroxine Sodium 75 Mcg Tablet 1 Tab PO DAILY 01/03/17 Reported Aspirin 81 Mg Tab.chew 1 Tab PO DAILY 01/03/17 Reported Impression . IMPRESSION: 1. Acute hypercapnic respiratory failure of unclear etiology. Reportedly, she is not a smoker. Could be contributed by transient ischemic attack symptoms/ encephalopathy.--improved with BIPAP Cannot exclude the possibility of seizure. CT head with no evidence of any ischemic or hemorrhagic stroke. Not on narcotics. She is currently on BiPAP and her blood gases have improved. 2. Leukopenia and thrombocytopenia. Needs further evaluation. Hematology consultation. 3. No significant tobacco history. 4. Right lower lobe interstitial faint infiltrate. Need to cover for aspiration pneumonia. Currently on Zosyn. 5. Mildly increased procalcitonin level. Currently being covered with antibiotics. Plan . RECOMMENDATIONS: Continue supplemental oxygen to keep sats above 92%, now on 4 liters N/C oxygen Continue BIPAP at HS Avoid any sedatives Continue empiric antibiotics on zosyn Follow Neurology recommendations. Follow Hematology recs for her thrombocytopenia as well as leukopenia. HTN per PCP Discussed with RAYMOND JUNIOR MD Jul 21, 2020 12:14
--- NOTE | 2020-07-21 14:18 | NUR ---
SS following for discharge planning. SS reviewed pt chart and discussed with pt RN. Pt is LTC resident from [facility], ; fax [phone]. COVID19 negative. Per RN, pt is currently on room air. Pt on IV Zosyn. Hematology consulted for platelet count. Pt is able to return to facility when medically ready. SS will continue to follow for discharge planning.
--- NOTE | 2020-07-21 14:40 | NUR ---
Wound Care: Patient seen per wound care consult. There are no open wounds at this time. Patient has some redness most likely due from moisture/yeast, under bilateral breast and pannus and groin areas. These areas are cleansed and dried, then Nystatin powder applied. Patient repositioned and bilateral heels floated. Patient educated on turning and PU prevention. Bed lowered and call light in reach. Spoke with RN and stated patient will benefit from Nystatin powder. Wound care will sign off at this time, please re consult regarding any changes per wound care.
[2020-07-21 15:00] VITALS: BP 106/53
--- NOTE | 2020-07-21 16:16 | RAD ---
EXAM: XR CHEST 1V 07/21/2020 12:56 PM CLINICAL INDICATION: Pneumonia COMPARISON: Chest radiograph 07/18/2020 TECHNIQUE: AP upright view of the chest FINDINGS: The heart is enlarged. There are increased bilateral pulmonary opacities, greatest in the right lung base. Probable small layering pleural effusions. No pneumothorax. No acute osseous abnorma lity. IMPRESSION: Cardiomegaly with increased bilateral pulmonary opacities and small pleural effusions. F indings could reflect pulmonary edema or multifocal pneumonia. Electronically signed by: Minnie Cm MD (07/21/2020 4:14 PM) [id number]
--- NOTE | 2020-07-21 16:35 | NUR ---
Have reviewed documentation completed by internet marketer and made changes as needed
[2020-07-21 18:14] LABS: BASE EXCESS COOX -4 mmol/L (-3-3); HCO3 COOX 23 mmol/L (21-28); METHEMOGLOBIN 0.6 % (0.0-1.9); OXYHEMOGLOBIN 88.7 %; PCO2 COOX 50 mmHg (35-46); PO2 COOX 64 mmHg (65-108); SAT O2 COOX 90 % (92-99)
[2020-07-21 19:00] VITALS: BP 128/66
[2020-07-21] MEDS: FLUTICASONE 50MCG/NASAL SPRAY 16GM BOTTLE. NS SCH (21:29)
[2020-07-21] MEDS: ZOLPIDEM 5 MG TABLET. PO PRN (21:30)
[2020-07-21] MEDS: DIVALPROEX EXTENDED RELEASE 500 MG TAB.ER.24H. PO SCH (21:30)
[2020-07-21 23:00] VITALS: BP 116/59
[2020-07-22] MEDS: PIPERACILLIN/TAZOBACTAM 3.375 GM in IV NORMAL SALINE 50ML 50 ML IV SCH ×4 (00:11→16:57)
[2020-07-22] MEDS: NYSTATIN TOPICAL POWDER 15GM BOTTLE. TP SCH ×3 (00:11→21:00)
[2020-07-22 03:23] VITALS: BP 184/84
[2020-07-22 05:00] LABS: BASO % 0 % (0-3); EOS % 0 % (0-3); HEMATOCRIT 26.8 % (36.0-47.0); HEMOGLOBIN 8.3 g/dL (12.0-15.5); LYMPH # 0.7 x10^3/uL (1.0-4.8); LYMPH % 42 % (24-48); MEAN CORPUSCULAR HEMOGLOBIN 27 pg (25-35); MEAN CORPUSCULAR HGB CONC 31 g/dL (31-37); MEAN CORPUSCULAR VOLUME 88 fL (79-100); MONO # 0.2 x10^3/uL (0.0-1.1); MONO % 12 % (0-9); NEUT # 0.8 x10^3/uL (1.8-7.7); NEUT % 46 % (31-73); RED BLOOD COUNT 3.05 x10^6/uL (3.50-5.40); RED CELL DISTRIBUTION WIDTH 22.3 % (11.5-14.5)
[2020-07-22 05:01] LABS: WHITE BLOOD COUNT 1.7 x10^3/uL (4.0-11.0)
[2020-07-22 05:02] LABS: PLATELET COUNT 15 x10^3/uL (140-400)
[2020-07-22] MEDS: LEVOTHYROXINE 75 MCG TABLET PO SCH (05:59)
[2020-07-22] MEDS: IV NORMAL SALINE 1000ML BAG 1,000 ML IV SCH ×3 (06:00→21:00)
[2020-07-22 07:00] VITALS: BP 186/85
[2020-07-22] MEDS: IPRATRPIUM/ALBUTEROL 0.5/2.5MG 3 ML NEBU. NEB SCH ×4 (07:55→19:21)
--- NOTE | 2020-07-22 08:30 | PDOC ---
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 Cardiomegaly with increased bilateral pulmonary opacities and small pleural effusions. // could reflect pulmonary edema vs multifocal pneumonia. BiPAP at nighttime and p.r.n. during the day. Avoid any sedatives. Continue empiric antibiotics. SEVERE, PROFOUND thrombocytopenia PLTS 15K 2-23 , hematology following Plan: Multiple previous admissions for syncope with psychiatric components over the past months, not requiring antibiotics. Will continue treatment of HCAP with Zosyn. Suspect vasovagal syncope. She has had 3 prior admissions over the past year for similar symptoms, most recently on 06/21/2020. She was recommended outpatient loop recorder. Consultations placed to neurology MRI brain pending, with further neurological work-up if abnormal MRI. She has history of chronic leukopenia, previously evaluated by Dr. Calderon with Hematology/Oncology. However she did not follow-up with outpatient work- up. Baseline creatinine 1.6 with baseline GFR around 39.8 consistent with CKD 3b IV normal saline Calcium carbonate 3 times daily with meals Resume home medications FEN - Cardiac diet PPX - Lovenox FULL CODE Dispo - inpatient for above heme consult nutrition consult History of Present Illness History of Present Illness Patient is a 60-year-old female who is well-known to our service who presents from [facility] by EMS as a code stroke. Per EMS report patient with walking when she suddenly fell onto padded chairs and became unresponsive. Upon EMS arrival she was nodding her head and moaning, with right-sided weakness. Symptoms resolved upon arrival to ED and she was without any focal neurologic deficits. Code stroke initially activated, but after discussion with Dr. Juarez, TPA was not given. Chest x-ray on admission showed faint patchy opacity at the right lung base, consistent with pneumonia. History was obtained through chart review secondary to patient's clinical condition. Will admit patient for further medical management. 07/19: Patient somnolent, difficult to arouse. Denies any questions. Afebrile. Discussed with Dr. Juarez, risks exceed benefit for MRI under general anesthesia. No additional neurological studies needed. Continue treatment for HCAP. Platelets 28, will hold Lovenox. Initiate SCDs. ABG obtained by RT showed elevated PCO2 and concern for CO2 narcosis. Will place on BiPAP and consult pulmonology. 07/20: ABG yesterday showed significant hypercapnia, discussed with RT. Place patient on BiPAP overnight with improvement in PCO2. Consultation was placed to pulmonology. Platelet count 20 today, will hold VTE prophylaxis. She has a noted history of pancytopenia. Procalcitonin mildly elevated. Continue antibiotic treatment for HCAP. She continues to improve on BiPAP she [facility] to finish oral antibiotic treatment outpatient. 07-22 PLt'S remain critically low, hematology consulted Place patient on BiPAP overnight with improvement in PCO2. Consultation pulmonology., hematology , neurology Cannot exclude the possibility of seizure.neurology doubts this is likely CT head with no evidence of any ischemic or hemorrhagic stroke. Not on narcotics. 36 min pt exam, chart review, > 50% of time spent with exam, chart review, pt care coordination D/W RN Vitals Vitals Vital Signs Date Time Temp Pulse Resp B/P (MAP) Pulse Ox O2 Delivery O2 Flow Rate FiO2 07/22/20 07:57 100 Nasal Cannula 2.0 07/22/20 03:23 98.0 73 24 184/84 (117) 98.0 Physical Exam Physical Exam MITTS ON General: Somnolent, uncooperative. No acute distress lying in bed on bipap HEENT: PERRLA, EOMI Lungs: Decreased breath sounds bilaterally. Normal air movement Heart: RRR, no murmurs Cardiovascular: S1, S2 Abdomen: Normal bowel sounds, Soft, No tenderness Extremities: 2+ edema bilateral lower extremities. No clubbing, No cyanosis Skin: No rashes, No significant lesion Neuro: Somnolent normal tone, General: Alert, Cooperative, No acute distress, Other (Lethargic) Heart: Regular rate, Normal S1 Lungs: Clear, Wheezing, Other (On BiPAP) Abdomen: Normal bowel sounds, Soft, No tenderness Extremities: No clubbing, No cyanosis, No edema Skin: No rashes, No breakdown Labs LABS EXAM: XR CHEST 1V 07/21/2020 12:56 PM CLINICAL INDICATION: Pneumonia COMPARISON: Chest radiograph 07/18/2020 TECHNIQUE: AP upright view of the chest FINDINGS: The heart is enlarged. There are increased bilateral pulmonary opacities, greatest in the right lung base. Probable small layering pleural effusions. No pneumothorax. No acute osseous abnormality. IMPRESSION: Cardiomegaly with increased bilateral pulmonary opacities and small pleural effusions. Findings could reflect pulmonary edema or multifocal pneumonia. Electronically signed by: Minnie Cm MD (07/21/2020 4:14 PM) [id number] DICTATED and SIGNED BY: MINNIE CM MD DATE: 07/21/20 [id number] Laboratory Tests Test 07/21/20 18:11 07/22/20 04:32 O2 Saturation 90 % (92-99) Arterial Blood pH 7.27 (7.35-7.45) Arterial Blood pCO2 at Patient Temp 50 mmHg (35-46) Arterial Blood pO2 at Patient Temp 64 mmHg (65-108) Arterial Blood HCO3 23 mmol/L (21-28) Arterial Blood Base Excess -4 mmol/L (-3-3) Oxyhemoglobin 88.7 % Methemoglobin 0.6 % (0.0-1.9) Carbon Monoxide, Quantitative 1.1 % (0.0-1.9) FiO2 21 White Blood Count 1.7 x10^3/uL (4.0-11.0) Red Blood Count 3.05 x10^6/uL (3.50-5.40) Hemoglobin 8.3 g/dL (12.0-15.5) Hematocrit 26.8 % (36.0-47.0) Mean Corpuscular Volume 88 fL (79-100) Mean Corpuscular Hemoglobin 27 pg (25-35) Mean Corpuscular Hemoglobin Concent 31 g/dL (31-37) Red Cell Distribution Width 22.3 % (11.5-14.5) Platelet Count 15 x10^3/uL (140-400) Neutrophils (%) (Auto) 46 % (31-73) Lymphocytes (%) (Auto) 42 % (24-48) Monocytes (%) (Auto) 12 % (0-9) Eosinophils (%) (Auto) 0 % (0-3) Basophils (%) (Auto) 0 % (0-3) Neutrophils # (Auto) 0.8 x10^3/uL (1.8-7.7) Lymphocytes # (Auto) 0.7 x10^3/uL (1.0-4.8) Monocytes # (Auto) 0.2 x10^3/uL (0.0-1.1) Eosinophils # (Auto) 0.0 x10^3/uL (0.0-0.7) Basophils # (Auto) 0.0 x10^3/uL (0.0-0.2) Assessment and Plan Assessmemt and Plan Problems Medical Problems: (1) PNA (pneumonia) Status: Acute Comment Review of Relevant I have reviewed the following items bianca (where applicable) has been applied. Labs Laboratory Tests Test 07/21/20 07:35 07/21/20 18:11 07/22/20 04:32 White Blood Count 2.2 x10^3/uL (4.0-11.0) 1.7 x10^3/uL (4.0-11.0) Red Blood Count 2.97 x10^6/uL (3.50-5.40) 3.05 x10^6/uL (3.50-5.40) Hemoglobin 8.0 g/dL (12.0-15.5) 8.3 g/dL (12.0-15.5) Hematocrit 26.2 % (36.0-47.0) 26.8 % (36.0-47.0) Mean Corpuscular Volume 88 fL (79-100) 88 fL (79-100) Mean Corpuscular Hemoglobin 27 pg (25-35) 27 pg (25-35) Mean Corpuscular Hemoglobin Concent 31 g/dL (31-37) 31 g/dL (31-37) Red Cell Distribution Width 22.9 % (11.5-14.5) 22.3 % (11.5-14.5) Platelet Count 21 x10^3/uL (140-400) 15 x10^3/uL (140-400) Neutrophils (%) (Auto) 52 % (31-73) 46 % (31-73) Lymphocytes (%) (Auto) 38 % (24-48) 42 % (24-48) Monocytes (%) (Auto) 9 % (0-9) 12 % (0-9) Eosinophils (%) (Auto) 0 % (0-3) 0 % (0-3) Basophils (%) (Auto) 1 % (0-3) 0 % (0-3) Neutrophils # (Auto) 1.2 x10^3/uL (1.8-7.7) 0.8 x10^3/uL (1.8-7.7) Lymphocytes # (Auto) 0.9 x10^3/uL (1.0-4.8) 0.7 x10^3/uL (1.0-4.8) Monocytes # (Auto) 0.2 x10^3/uL (0.0-1.1) 0.2 x10^3/uL (0.0-1.1) Eosinophils # (Auto) 0.0 x10^3/uL (0.0-0.7) 0.0 x10^3/uL (0.0-0.7) Basophils # (Auto) 0.0 x10^3/uL (0.0-0.2) 0.0 x10^3/uL (0.0-0.2) O2 Saturation 90 % (92-99) Arterial Blood pH 7.27 (7.35-7.45) Arterial Blood pCO2 at Patient Temp 50 mmHg (35-46) Arterial Blood pO2 at Patient Temp 64 mmHg (65-108) Arterial Blood HCO3 23 mmol/L (21-28) Arterial Blood Base Excess -4 mmol/L (-3-3) Oxyhemoglobin 88.7 % Methemoglobin 0.6 % (0.0-1.9) Carbon Monoxide, Quantitative 1.1 % (0.0-1.9) FiO2 21 Laboratory Tests Test 07/21/20 18:11 07/22/20 04:32 O2 Saturation 90 % (92-99) Arterial Blood pH 7.27 (7.35-7.45) Arterial Blood pCO2 at Patient Temp 50 mmHg (35-46) Arterial Blood pO2 at Patient Temp 64 mmHg (65-108) Arterial Blood HCO3 23 mmol/L (21-28) Arterial Blood Base Excess -4 mmol/L (-3-3) Oxyhemoglobin 88.7 % Methemoglobin 0.6 % (0.0-1.9) Carbon Monoxide, Quantitative 1.1 % (0.0-1.9) FiO2 21 White Blood Count 1.7 x10^3/uL (4.0-11.0) Red Blood Count 3.05 x10^6/uL (3.50-5.40) Hemoglobin 8.3 g/dL (12.0-15.5) Hematocrit 26.8 % (36.0-47.0) Mean Corpuscular Volume 88 fL (79-100) Mean Corpuscular Hemoglobin 27 pg (25-35) Mean Corpuscular Hemoglobin Concent 31 g/dL (31-37) Red Cell Distribution Width 22.3 % (11.5-14.5) Platelet Count 15 x10^3/uL (140-400) Neutrophils (%) (Auto) 46 % (31-73) Lymphocytes (%) (Auto) 42 % (24-48) Monocytes (%) (Auto) 12 % (0-9) Eosinophils (%) (Auto) 0 % (0-3) Basophils (%) (Auto) 0 % (0-3) Neutrophils # (Auto) 0.8 x10^3/uL (1.8-7.7) Lymphocytes # (Auto) 0.7 x10^3/uL (1.0-4.8) Monocytes # (Auto) 0.2 x10^3/uL (0.0-1.1) Eosinophils # (Auto) 0.0 x10^3/uL (0.0-0.7) Basophils # (Auto) 0.0 x10^3/uL (0.0-0.2) Medications Current Medications Iohexol (Omnipaque 300 Mg/ml) 75 ml 1X ONCE IV Last administered on 07/18/20at 10:15; Start 07/18/20 at 10:15; Stop 07/18/20 at 10:16; Status DC Ceftriaxone Sodium (Rocephin) 1 gm 1X ONCE IVP Last administered on 07/18/20at 17:06; Start 07/18/20 at 12:00; Stop 07/18/20 at 12:01; Status DC Calcium Carbonate/ Glycine (Oscal) 500 mg TIDAFTMEAL PO Last administered on 07/21/20at 12:19; Start 07/18/20 at 18:00 Amlodipine Besylate (Norvasc) 10 mg DAILY PO Last administered on 07/21/20at 08:33; Start 07/19/20 at 09:00 Aspirin (Aspirin Chewable) 81 mg DAILY PO Last administered on 07/21/20at 08:32; Start 07/19/20 at 09:00 Bisacodyl (Dulcolax Supp) 10 mg PRN DAILY PRN IN CONSTIPATION; Start 07/18/20 at 15:45 Divalproex Sodium (Depakote Er) 1,500 mg QHS PO Last administered on 07/21/20at 21:30; Start 07/18/20 at 21:00 Fluticasone Propionate (Flonase) 2 spray QHS NS Last administered on 07/21/20at 21:29; Start 07/18/20 at 21:00 Levothyroxine Sodium (Synthroid) 75 mcg DAILY06 PO Last administered on 07/22/20at 05:59; Start 07/19/20 at 06:00 Polyethylene Glycol (miraLAX PACKET) 17 gm PRN Q24HRS PRN PO CONSTIPATION; Start 07/18/20 at 15:45 Sertraline HCl (Zoloft) 25 mg DAILY PO Last administered on 07/21/20at 08:32; Start 07/19/20 at 09:00 Topiramate (Topamax) 100 mg BID PO Last administered on 07/21/20at 21:30; Start 07/18/20 at 21:00 Albuterol/ Ipratropium (Duoneb) 3 ml RTQID NEB Last administered on 07/22/20at 07:55; Start 07/18/20 at 16:00 Piperacillin Sod/ Tazobactam Sod (Zosyn Per Pharmacy) 1 each PRN DAILY PRN MC SEE COMMENTS; Start 07/18/20 at 15:45 Sodium Chloride 1,000 ml @ 100 mls/hr Q10H IV Last administered on 07/22/20at 06:00; Start 07/18/20 at 17:00 Ondansetron HCl (Zofran) 4 mg PRN Q6HRS PRN IVP NAUSEA/VOMITING; Start 07/18/20 at 16:00 Al Hydroxide/Mg Hydroxide (Mylanta Plus Xs) 30 ml PRN Q3HRS PRN PO HEARTBURN / GAS; Start 07/18/20 at 16:00 Calcium Carbonate/ Glycine (Tums) 500 mg PRN Q3HRS PRN PO UPSET STOMACH; Start 07/18/20 at 16:00 Zolpidem Tartrate (Ambien) 5 mg PRN QHS PRN PO INSOMNIA, MAY REPEAT IN 1HR Last administered on 07/21/20at 21:30; Start 07/18/20 at 16:00 Acetaminophen/ Hydrocodone Bitart (Lortab 5/325) 1 tab PRN Q4HRS PRN PO MILD PAIN 1-3; Start 07/18/20 at 16:00 Acetaminophen (Tylenol) 650 mg PRN Q6HRS PRN PO Headaches, Temp > 101.5F; Start 07/18/20 at 16:00 Enoxaparin Sodium (Lovenox 40mg Syringe) 40 mg Q24H SQ Last administered on 07/18/20at 20:07; Start 07/18/20 at 21:00; Stop 07/19/20 at 15:38; Status DC Piperacillin Sod/ Tazobactam Sod 3.375 gm/Sodium Chloride 50 ml @ 100 mls/hr Q6HRS IV Last administered on 07/22/20at 05:59; Start 07/18/20 at 18:00 Labetalol HCl (Normodyne Iv Push) 20 mg PRN Q2HR PRN IVP HYPERTENSION Last administered on 07/20/20at 03:43; Start 07/20/20 at 03:30 Nystatin (Nystop) 1 carmen BID TP Last administered on 07/22/20at 00:11; Start 07/22/20 at 00:00 Active Scripts Active Bisacodyl 10 Mg Supp.rect 10 Mg IN PRN DAILY PRN 30 Days [place] Saline Nasal Gel (Sodium Chloride/Aloe Vera) 14.1 Gm Gel..gram. 1 Carmen NS PRN DAILY PRN 30 Days Fluticasone Propionate Nasal [place] (Fluticasone Propionate) 16 Gm [place].susp 2 [place] NS QHS 30 Days Amlodipine Besylate 10 Mg Tablet 10 Mg PO DAILY 30 Days Reported Zofran (Ondansetron Hcl) 4 Mg Tablet 1 Tab PO Q6HRS Acetaminophen 325 Mg Tablet 650 Mg PO PRN Q6HRS PRN Combivent Respimat Inhal (Ipratropium/Albuterol Sulfate) 4 Gm Aer.w.adap 2 Inh IH QID Latuda (Lurasidone Hcl) 20 Mg Tablet 1 Tab PO DAILY 30 Days Zoloft (Sertraline Hcl) 25 Mg Tablet 1 Tab PO DAILY Nystatin 15 Gm Powder 1 Carmen TP PRN PRN 7 Days apply to affected area(s) Miralax (Polyethylene Glycol 3350) 17 Gm Powd.pack 1 Packet PO PRN Q24HRS PRN 2 Days dissolve in water Miralax (Polyethylene Glycol 3350) 17 Gm Powd.pack 1 Packet PO QMWF 2 Days dissolve in water Depakote Er (Divalproex Sodium) 500 Mg Tab.er.24h 3 Tab PO QHS Mylanta Maximum Strength Liq (Mag Hydrox/Aluminum Hyd/Simeth) 355 Ml Oral.susp 30 Ml PO PRN Q4HRS PRN Risperdal Consta (Risperidone Microspheres) 37.5 Mg/2 Ml Disp.syrin 50 Mg IM Q2WKS Topamax (Topiramate) 100 Mg Tablet 1 Tab PO BID Risperdal (Risperidone) 4 Mg Tablet 1 Tab PO BID Milk Of Magnesia (Magnesium Hydroxide) 400 Mg/5 Ml Oral.susp 30 Ml PO DAILY PRN Anti-Diarrhea (Loperamide Hcl) 2 Mg Tablet 2 Mg PO PRN Levothyroxine Sodium 75 Mcg Tablet 1 Tab PO DAILY Aspirin 81 Mg Tab.chew 1 Tab PO DAILY Vitals/I & O Vital Sign - Last 24 Hours 07/21/20 07/21/20 07/21/20 07/21/20 08:33 11:00 11:47 15:00 Temp 97.5 98.9 97.5 98.9 Pulse 81 82 81 Resp 22 22 B/P (MAP) 170/83 169/83 (111) 106/53 (70) Pulse Ox 96 94 94 O2 Delivery Room Air Room Air Room Air 07/21/20 07/21/20 07/21/20 07/21/20 15:50 19:00 19:35 20:00 Temp 97.5 97.5 Pulse 76 Resp 22 B/P (MAP) 128/66 (86) Pulse Ox 94 100 98 O2 Delivery Room Air Room Air BiPAP/CPAP Bi-pap 2/22/21 2/23/21 2/23/21 2/23/21 23:00 00:29 02:48 03:23 Temp 98.3 98.0 98.3 98.0 Pulse 79 73 Resp 20 24 B/P (MAP) 116/59 (78) 184/84 (117) Pulse Ox 100 98 98 99 O2 Delivery Room Air BiPAP/CPAP BiPAP/CPAP Room Air 07/22/20 07:57 Pulse Ox 100 O2 Delivery Nasal Cannula O2 Flow Rate 2.0 Intake and Output 07/21/20 07/21/20 07/22/20 15:00 23:00 07:00 Intake Total 1290 ml 180 ml 0 ml Output Total 250 ml 450 ml Balance 1290 ml -70 ml -450 ml Justicifation of Admission Dx: Justifications for Admission: Justification of Admission Dx: Yes Altered Mental Status: Altered Mental Status ROGER ALVARADO MD Jul 22, 2020 08:30
[2020-07-22] MEDS: ASPIRIN CHEWABLE 81 MG TABLET. PO SCH (08:32)
[2020-07-22] MEDS: TOPIRAMATE 100 MG TABLET. PO SCH ×2 (08:32→21:52)
[2020-07-22] MEDS: CALCIUM CARBONATE 500 MG TABLET PO SCH ×3 (08:32→16:58)
[2020-07-22] MEDS: SERTRALINE 25 MG TABLET. PO SCH (08:32)
--- NOTE | 2020-07-22 09:08 | PDOC2 ---
CONSULT Date of Consult Date of Consult DATE: 07/22/20 TIME: 09:01 Reason for Consult Reason for Consult: Pancytopenia Referring Physician Referring Physician: Dr. Estes Identification/Chief Complaint Chief Complaint Altered mental status Source Source: Unable to obtain due to (Patient's mental status) History of Present Illness Reason for Visit: Geri Guzman is a 60-year-old female who was brought into the hospital from a half-way as a code stroke. The patient was walking and when she suddenly fell onto padded chairs and became unresponsive. Upon the EMS arrival, she was nodding her head and was moaning with some right-sided weakness. His focal deficits had subsequently resolved by the time of her hospitalization. TPA was therefore not given. She received an ABG which showed hypercapnia and respiratory acidosis. She was placed on BiPAP with subsequent improvement in respiratory acidosis. COVID-19 testing was requested and returned negative. The patient continues to be encephalopathic and was unable to participate in an interview for history or provide review of systems. She was previously seen by hematology due to anemia and thrombocytopenia during a prior visit in April 2020. She tested positive for COVID-19 at the time. Lab evaluation at [facility] had shown showed CKD and new pancytopenia. Previously obtained labs in 2017 at [facility] showed leukopenia and normocytic anemia proportionate to CKD. Her platelet count had improved after her hospitalization. Platelets have dropped again during this hospital stay. Hematology consultation has been sought for further recommendations and evaluation and management. Past Medical History Cardiovascular: HTN, Hyperlipidemia Pulmonary: Asthma CENTRAL NERVOUS SYSTEM: Other (extrapyramidal syndrome, intellectual disability, strabismus) GI: Constipation, GERD Heme/Onc: No pertinent hx Hepatobiliary: No pertinent hx Psych: Anxiety, Depression, Schizophrenia Musculoskeletal: low back pain Rheumatologic: No pertinent hx Infectious disease: No pertinent hx ENT: Allergic Rhinitis Renal/: UTI Endocrine: Hypothyroidism Past Surgical History Past Surgical History: No pertinent history Family History Family History: Family History Unknown Social History No ALCOHOL: none Drugs: None Lives: [facility] Current Problem List Problem List Problems Medical Problems: (1) PNA (pneumonia) Status: Acute Current Medications Current Medications Current Medications Iohexol (Omnipaque 300 Mg/ml) 75 ml 1X ONCE IV Last administered on 07/18/20at 10:15; Start 07/18/20 at 10:15; Stop 07/18/20 at 10:16; Status DC Ceftriaxone Sodium (Rocephin) 1 gm 1X ONCE IVP Last administered on 07/18/20at 17:06; Start 07/18/20 at 12:00; Stop 07/18/20 at 12:01; Status DC Calcium Carbonate/ Glycine (Oscal) 500 mg TIDAFTMEAL PO Last administered on 07/22/20at 08:32; Start 07/18/20 at 18:00 Amlodipine Besylate (Norvasc) 10 mg DAILY PO Last administered on 07/22/20at 08:32; Start 07/19/20 at 09:00 Aspirin (Aspirin Chewable) 81 mg DAILY PO Last administered on 07/22/20at 08:32; Start 07/19/20 at 09:00 Bisacodyl (Dulcolax Supp) 10 mg PRN DAILY PRN [place] CONSTIPATION; Start 07/18/20 at 15:45 Divalproex Sodium (Depakote Er) 1,500 mg QHS PO Last administered on 07/21/20at 21:30; Start 07/18/20 at 21:00 Fluticasone Propionate (Flonase) 2 spray QHS NS Last administered on 07/21/20at 21:29; Start 07/18/20 at 21:00 Levothyroxine Sodium (Synthroid) 75 mcg DAILY06 PO Last administered on 07/22/20at 05:59; Start 07/19/20 at 06:00 Polyethylene Glycol (miraLAX PACKET) 17 gm PRN Q24HRS PRN PO CONSTIPATION; Start 07/18/20 at 15:45 Sertraline HCl (Zoloft) 25 mg DAILY PO Last administered on 07/22/20at 08:32; Start 07/19/20 at 09:00 Topiramate (Topamax) 100 mg BID PO Last administered on 07/22/20at 08:32; Start 07/18/20 at 21:00 Albuterol/ Ipratropium (Duoneb) 3 ml RTQID NEB Last administered on 07/22/20at 07:55; Start 07/18/20 at 16:00 Piperacillin Sod/ Tazobactam Sod (Zosyn Per Pharmacy) 1 each PRN DAILY PRN MC SEE COMMENTS; Start 07/18/20 at 15:45 Sodium Chloride 1,000 ml @ 100 mls/hr Q10H IV Last administered on 07/22/20at 06:00; Start 07/18/20 at 17:00 Ondansetron HCl (Zofran) 4 mg PRN Q6HRS PRN IVP NAUSEA/VOMITING; Start 07/18/20 at 16:00 Al Hydroxide/Mg Hydroxide (Mylanta Plus Xs) 30 ml PRN Q3HRS PRN PO HEARTBURN / GAS; Start 07/18/20 at 16:00 Calcium Carbonate/ Glycine (Tums) 500 mg PRN Q3HRS PRN PO UPSET STOMACH; Start 07/18/20 at 16:00 Zolpidem Tartrate (Ambien) 5 mg PRN QHS PRN PO INSOMNIA, MAY REPEAT IN 1HR Last administered on 07/21/20at 21:30; Start 07/18/20 at 16:00 Acetaminophen/ Hydrocodone Bitart (Lortab 5/325) 1 tab PRN Q4HRS PRN PO MILD PAIN 1-3; Start 07/18/20 at 16:00 Acetaminophen (Tylenol) 650 mg PRN Q6HRS PRN PO Headaches, Temp > 101.5F; Start 07/18/20 at 16:00 Enoxaparin Sodium (Lovenox 40mg Syringe) 40 mg Q24H SQ Last administered on 07/18/20at 20:07; Start 07/18/20 at 21:00; Stop 07/19/20 at 15:38; Status DC Piperacillin Sod/ Tazobactam Sod 3.375 gm/Sodium Chloride 50 ml @ 100 mls/hr Q6HRS IV Last administered on 07/22/20at 05:59; Start 07/18/20 at 18:00 Labetalol HCl (Normodyne Iv Push) 20 mg PRN Q2HR PRN IVP HYPERTENSION Last administered on 07/20/20at 03:43; Start 07/20/20 at 03:30 Nystatin (Nystop) 1 carmen BID TP Last administered on 07/22/20at 08:32; Start 07/22/20 at 00:00 Active Scripts Active Bisacodyl 10 Mg Supp.rect 10 Mg [place] PRN DAILY PRN 30 Days [place] Saline Nasal Gel (Sodium Chloride/Aloe Vera) 14.1 Gm Gel..gram. 1 Carmen NS PRN DAILY PRN 30 Days Fluticasone Propionate Nasal [place] (Fluticasone Propionate) 16 Gm [place].susp 2 [place] NS QHS 30 Days Amlodipine Besylate 10 Mg Tablet 10 Mg PO DAILY 30 Days Reported Zofran (Ondansetron Hcl) 4 Mg Tablet 1 Tab PO Q6HRS Acetaminophen 325 Mg Tablet 650 Mg PO PRN Q6HRS PRN Combivent Respimat Inhal (Ipratropium/Albuterol Sulfate) 4 Gm Aer.w.adap 2 Inh IH QID Latuda (Lurasidone Hcl) 20 Mg Tablet 1 Tab PO DAILY 30 Days Zoloft (Sertraline Hcl) 25 Mg Tablet 1 Tab PO DAILY Nystatin 15 Gm Powder 1 Carmen TP PRN PRN 7 Days apply to affected area(s) Miralax (Polyethylene Glycol 3350) 17 Gm Powd.pack 1 Packet PO PRN Q24HRS PRN 2 Days dissolve in water Miralax (Polyethylene Glycol 3350) 17 Gm Powd.pack 1 Packet PO QMWF 2 Days dissolve in water Depakote Er (Divalproex Sodium) 500 Mg Tab.er.24h 3 Tab PO QHS Mylanta Maximum Strength Liq (Mag Hydrox/Aluminum Hyd/Simeth) 355 Ml Oral.susp 30 Ml PO PRN Q4HRS PRN Risperdal Consta (Risperidone Microspheres) 37.5 Mg/2 Ml Disp.syrin 50 Mg IM Q2WKS Topamax (Topiramate) 100 Mg Tablet 1 Tab PO BID Risperdal (Risperidone) 4 Mg Tablet 1 Tab PO BID Milk Of Magnesia (Magnesium Hydroxide) 400 Mg/5 Ml Oral.susp 30 Ml PO DAILY PRN Anti-Diarrhea (Loperamide Hcl) 2 Mg Tablet 2 Mg PO PRN Levothyroxine Sodium 75 Mcg Tablet 1 Tab PO DAILY Aspirin 81 Mg Tab.chew 1 Tab PO DAILY Allergies Allergies: Coded Allergies: haloperidol (Verified Allergy, Intermediate, 06/02/20) iron dextran complex (Verified Allergy, Intermediate, 06/02/20) I S O L A T I O N *CONTACT* (Verified Allergy, Unknown, 06/05/20) VRE ROS Review of System Unable to obtain due to the patient's clinical status Physical Exam General: Other (Obtunded) HEENT: Atraumatic Lungs: Clear to auscultation Heart: Regular rate, Normal S1, Normal S2 Abdomen: Soft Extremities: No clubbing MUSCULOSKELETAL: No deformity Vitals VITALS Vital Signs Date Time Temp Pulse Resp B/P (MAP) Pulse Ox O2 Delivery O2 Flow Rate FiO2 07/22/20 08:32 88 186/85 07/22/20 07:57 100 Nasal Cannula 2.0 07/22/20 07:00 97.7 18 97.7 Labs Labs Laboratory Tests Test 07/21/20 07:35 07/21/20 18:11 07/22/20 04:32 White Blood Count 2.2 x10^3/uL (4.0-11.0) 1.7 x10^3/uL (4.0-11.0) Red Blood Count 2.97 x10^6/uL (3.50-5.40) 3.05 x10^6/uL (3.50-5.40) Hemoglobin 8.0 g/dL (12.0-15.5) 8.3 g/dL (12.0-15.5) Hematocrit 26.2 % (36.0-47.0) 26.8 % (36.0-47.0) Mean Corpuscular Volume 88 fL (79-100) 88 fL (79-100) Mean Corpuscular Hemoglobin 27 pg (25-35) 27 pg (25-35) Mean Corpuscular Hemoglobin Concent 31 g/dL (31-37) 31 g/dL (31-37) Red Cell Distribution Width 22.9 % (11.5-14.5) 22.3 % (11.5-14.5) Platelet Count 21 x10^3/uL (140-400) 15 x10^3/uL (140-400) Neutrophils (%) (Auto) 52 % (31-73) 46 % (31-73) Lymphocytes (%) (Auto) 38 % (24-48) 42 % (24-48) Monocytes (%) (Auto) 9 % (0-9) 12 % (0-9) Eosinophils (%) (Auto) 0 % (0-3) 0 % (0-3) Basophils (%) (Auto) 1 % (0-3) 0 % (0-3) Neutrophils # (Auto) 1.2 x10^3/uL (1.8-7.7) 0.8 x10^3/uL (1.8-7.7) Lymphocytes # (Auto) 0.9 x10^3/uL (1.0-4.8) 0.7 x10^3/uL (1.0-4.8) Monocytes # (Auto) 0.2 x10^3/uL (0.0-1.1) 0.2 x10^3/uL (0.0-1.1) Eosinophils # (Auto) 0.0 x10^3/uL (0.0-0.7) 0.0 x10^3/uL (0.0-0.7) Basophils # (Auto) 0.0 x10^3/uL (0.0-0.2) 0.0 x10^3/uL (0.0-0.2) O2 Saturation 90 % (92-99) Arterial Blood pH 7.27 (7.35-7.45) Arterial Blood pCO2 at Patient Temp 50 mmHg (35-46) Arterial Blood pO2 at Patient Temp 64 mmHg (65-108) Arterial Blood HCO3 23 mmol/L (21-28) Arterial Blood Base Excess -4 mmol/L (-3-3) Oxyhemoglobin 88.7 % Methemoglobin 0.6 % (0.0-1.9) Carbon Monoxide, Quantitative 1.1 % (0.0-1.9) FiO2 21 Laboratory Tests Test 07/21/20 18:11 07/22/20 04:32 O2 Saturation 90 % (92-99) Arterial Blood pH 7.27 (7.35-7.45) Arterial Blood pCO2 at Patient Temp 50 mmHg (35-46) Arterial Blood pO2 at Patient Temp 64 mmHg (65-108) Arterial Blood HCO3 23 mmol/L (21-28) Arterial Blood Base Excess -4 mmol/L (-3-3) Oxyhemoglobin 88.7 % Methemoglobin 0.6 % (0.0-1.9) Carbon Monoxide, Quantitative 1.1 % (0.0-1.9) FiO2 21 White Blood Count 1.7 x10^3/uL (4.0-11.0) Red Blood Count 3.05 x10^6/uL (3.50-5.40) Hemoglobin 8.3 g/dL (12.0-15.5) Hematocrit 26.8 % (36.0-47.0) Mean Corpuscular Volume 88 fL (79-100) Mean Corpuscular Hemoglobin 27 pg (25-35) Mean Corpuscular Hemoglobin Concent 31 g/dL (31-37) Red Cell Distribution Width 22.3 % (11.5-14.5) Platelet Count 15 x10^3/uL (140-400) Neutrophils (%) (Auto) 46 % (31-73) Lymphocytes (%) (Auto) 42 % (24-48) Monocytes (%) (Auto) 12 % (0-9) Eosinophils (%) (Auto) 0 % (0-3) Basophils (%) (Auto) 0 % (0-3) Neutrophils # (Auto) 0.8 x10^3/uL (1.8-7.7) Lymphocytes # (Auto) 0.7 x10^3/uL (1.0-4.8) Monocytes # (Auto) 0.2 x10^3/uL (0.0-1.1) Eosinophils # (Auto) 0.0 x10^3/uL (0.0-0.7) Basophils # (Auto) 0.0 x10^3/uL (0.0-0.2) Assessment/Plan Assessment/Plan Assessment: Pancytopenia: With chronic normocytic anemia and leukopenia and new onset thrombocytopenia CKD 4 Epilepsy, on Depakote and Topamax Right lower lobe pneumonia, on Zosyn Metabolic encephalopathy Recommendations: -She has had previously known chronic leukopenia as well as anemia that can be explained by CKD. -Thrombocytopenia that was noted during her prior hospitalization due to COVID- 19 infection in April 2020 had subsequently improved and she now has a new severe thrombocytopenia -Low suspicion for HIT given presence of thrombocytopenia at the time of admission. I suspect that thrombocytopenia is most likely reactive secondary to acute illness but will exclude hemolytic anemia with LDH, haptoglobin and peripheral smear -Continues to be somnolent at this time but would recommend bone marrow biopsy once clinical status improves for evaluation of pancytopenia -Previously ordered work-up with SPEP, free light chains, B12, iron studies, copper level returned unremarkable. Reticulocyte count was relatively low and erythropoietin level was slightly elevated suggestive of anemia of chronic disease -Management of pneumonia per pulmonology service -Management of encephalopathy per Dr. Juarez. No additional evaluation has b een recommended by neurology at this point -Rest per primary service Pool Mak MD Medical Oncology/Hematology Ph: [phone] ADRIANE MAK MD Jul 22, 2020 09:08
[2020-07-22 10:25] VITALS: BP 163/81
--- NOTE | 2020-07-22 11:41 | PDOC ---
PULMONARY PROGRESS NOTES DATE: 07/22/20 TIME: 11:39 Subjective Patient is less responsive today, remains on BiPAP 16/11 with a rate of 24 at 40% Worsening thrombocytopenia/leukopenia No other concerns from nursing Vitals Vital Signs Date Time Temp Pulse Resp B/P (MAP) Pulse Ox O2 Delivery O2 Flow Rate FiO2 07/22/20 11:21 100 BiPAP/CPAP 07/22/20 10:25 97.4 85 20 163/81 (108) 97.4 07/22/20 08:00 2.0 ROS: No Nausea, No Chest Pain, No Abdominal Pain, No Increase Cough General: Alert, Lethargic Lungs: Clear, Other (On BiPAP) Cardiovascular: S1, S2 Labs Laboratory Tests Test 07/21/20 07:35 07/21/20 18:11 07/22/20 04:32 White Blood Count 2.2 x10^3/uL (4.0-11.0) 1.7 x10^3/uL (4.0-11.0) Red Blood Count 2.97 x10^6/uL (3.50-5.40) 3.05 x10^6/uL (3.50-5.40) Hemoglobin 8.0 g/dL (12.0-15.5) 8.3 g/dL (12.0-15.5) Hematocrit 26.2 % (36.0-47.0) 26.8 % (36.0-47.0) Mean Corpuscular Volume 88 fL (79-100) 88 fL (79-100) Mean Corpuscular Hemoglobin 27 pg (25-35) 27 pg (25-35) Mean Corpuscular Hemoglobin Concent 31 g/dL (31-37) 31 g/dL (31-37) Red Cell Distribution Width 22.9 % (11.5-14.5) 22.3 % (11.5-14.5) Platelet Count 21 x10^3/uL (140-400) 15 x10^3/uL (140-400) Neutrophils (%) (Auto) 52 % (31-73) 46 % (31-73) Lymphocytes (%) (Auto) 38 % (24-48) 42 % (24-48) Monocytes (%) (Auto) 9 % (0-9) 12 % (0-9) Eosinophils (%) (Auto) 0 % (0-3) 0 % (0-3) Basophils (%) (Auto) 1 % (0-3) 0 % (0-3) Neutrophils # (Auto) 1.2 x10^3/uL (1.8-7.7) 0.8 x10^3/uL (1.8-7.7) Lymphocytes # (Auto) 0.9 x10^3/uL (1.0-4.8) 0.7 x10^3/uL (1.0-4.8) Monocytes # (Auto) 0.2 x10^3/uL (0.0-1.1) 0.2 x10^3/uL (0.0-1.1) Eosinophils # (Auto) 0.0 x10^3/uL (0.0-0.7) 0.0 x10^3/uL (0.0-0.7) Basophils # (Auto) 0.0 x10^3/uL (0.0-0.2) 0.0 x10^3/uL (0.0-0.2) O2 Saturation 90 % (92-99) Arterial Blood pH 7.27 (7.35-7.45) Arterial Blood pCO2 at Patient Temp 50 mmHg (35-46) Arterial Blood pO2 at Patient Temp 64 mmHg (65-108) Arterial Blood HCO3 23 mmol/L (21-28) Arterial Blood Base Excess -4 mmol/L (-3-3) Oxyhemoglobin 88.7 % Methemoglobin 0.6 % (0.0-1.9) Carbon Monoxide, Quantitative 1.1 % (0.0-1.9) FiO2 21 Laboratory Tests Test 07/21/20 18:11 07/22/20 04:32 O2 Saturation 90 % (92-99) Arterial Blood pH 7.27 (7.35-7.45) Arterial Blood pCO2 at Patient Temp 50 mmHg (35-46) Arterial Blood pO2 at Patient Temp 64 mmHg (65-108) Arterial Blood HCO3 23 mmol/L (21-28) Arterial Blood Base Excess -4 mmol/L (-3-3) Oxyhemoglobin 88.7 % Methemoglobin 0.6 % (0.0-1.9) Carbon Monoxide, Quantitative 1.1 % (0.0-1.9) FiO2 21 White Blood Count 1.7 x10^3/uL (4.0-11.0) Red Blood Count 3.05 x10^6/uL (3.50-5.40) Hemoglobin 8.3 g/dL (12.0-15.5) Hematocrit 26.8 % (36.0-47.0) Mean Corpuscular Volume 88 fL (79-100) Mean Corpuscular Hemoglobin 27 pg (25-35) Mean Corpuscular Hemoglobin Concent 31 g/dL (31-37) Red Cell Distribution Width 22.3 % (11.5-14.5) Platelet Count 15 x10^3/uL (140-400) Neutrophils (%) (Auto) 46 % (31-73) Lymphocytes (%) (Auto) 42 % (24-48) Monocytes (%) (Auto) 12 % (0-9) Eosinophils (%) (Auto) 0 % (0-3) Basophils (%) (Auto) 0 % (0-3) Neutrophils # (Auto) 0.8 x10^3/uL (1.8-7.7) Lymphocytes # (Auto) 0.7 x10^3/uL (1.0-4.8) Monocytes # (Auto) 0.2 x10^3/uL (0.0-1.1) Eosinophils # (Auto) 0.0 x10^3/uL (0.0-0.7) Basophils # (Auto) 0.0 x10^3/uL (0.0-0.2) Medications Active Scripts Medications Dose Route/Sig Max Daily Dose Days Date Category Dose Instructions Bisacodyl 10 Mg Supp.rect 10 Mg MS PRN DAILY PRN 30 06/25/20 Rx [place] Saline Nasal Gel (Sodium Chloride/Aloe Vera) 14.1 Gm Gel..gram. 1 Carmen NS PRN DAILY PRN 30 06/25/20 Rx Fluticasone Propionate Nasal [place] (Fluticasone Propionate) 16 Gm [place].susp 2 [place] NS QHS 30 06/25/20 Rx Amlodipine Besylate 10 Mg Tablet 10 Mg PO DAILY 30 06/25/20 Rx Zofran (Ondansetron Hcl) 4 Mg Tablet 1 Tab PO Q6HRS 06/21/20 Reported Acetaminophen 325 Mg Tablet 650 Mg PO PRN Q6HRS PRN 06/02/20 Reported Combivent Respimat Inhal (Ipratropium/Albuterol Sulfate) 4 Gm Aer.w.adap 2 Inh IH QID 05/24/20 Reported Latuda (Lurasidone Hcl) 20 Mg Tablet 1 Tab PO DAILY 30 05/24/20 Reported Zoloft (Sertraline Hcl) 25 Mg Tablet 1 Tab PO DAILY 11/09/19 Reported Nystatin 15 Gm Powder 1 Carmen TP PRN PRN 7 11/09/19 Reported apply to affected area(s) Miralax (Polyethylene Glycol 3350) 17 Gm Powd.pack 1 Packet PO PRN Q24HRS PRN 2 11/09/19 Reported dissolve in water Miralax (Polyethylene Glycol 3350) 17 Gm Powd.pack 1 Packet PO QMWF 2 11/09/19 Reported dissolve in water Depakote Er (Divalproex Sodium) 500 Mg Tab.er.24h 3 Tab PO QHS 11/09/19 Reported Mylanta Maximum Strength Liq (Mag Hydrox/Aluminum Hyd/Simeth) 355 Ml Oral.susp 30 Ml PO PRN Q4HRS PRN 11/09/19 Reported Risperdal Consta (Risperidone Microspheres) 37.5 Mg/2 Ml Disp.syrin 50 Mg IM Q2WKS 01/03/17 Reported Topamax (Topiramate) 100 Mg Tablet 1 Tab PO BID 01/03/17 Reported Risperdal (Risperidone) 4 Mg Tablet 1 Tab PO BID 01/03/17 Reported Milk Of Magnesia (Magnesium Hydroxide) 400 Mg/5 Ml Oral.susp 30 Ml PO DAILY PRN 01/03/17 Reported Anti-Diarrhea (Loperamide Hcl) 2 Mg Tablet 2 Mg PO PRN 01/03/17 Reported Levothyroxine Sodium 75 Mcg Tablet 1 Tab PO DAILY 01/03/17 Reported Aspirin 81 Mg Tab.chew 1 Tab PO DAILY 01/03/17 Reported Impression . IMPRESSION: 1. Acute hypercapnic respiratory failure of unclear etiology. Reportedly, she is not a smoker. Could be contributed by transient ischemic attack symptoms/ encephalopathy.--improved with BIPAP Cannot exclude the possibility of seizure. CT head with no evidence of any ischemic or hemorrhagic stroke. Not on narcotics. She is currently on BiPAP and her blood gases have improved. 2. Leukopenia and thrombocytopenia. Needs further evaluation. Hematology consultation. 3. No significant tobacco history. 4. Right lower lobe interstitial faint infiltrate. Need to cover for aspiration pneumonia. Currently on Zosyn. 5. Mildly increased procalcitonin level. Currently being covered with antibiotics. Plan . RECOMMENDATIONS: Continue supplemental oxygen to keep sats above 92%, remains on BiPAP /6 with a rate of 24 to 40% Obtain ABG as patient is more lethargic Continue BIPAP at HS Avoid any sedatives Continue empiric antibiotics on Zosyn Follow Neurology recommendations Follow Hematology recs for her thrombocytopenia as well as leukopenia--worsening today HTN per PCP PT/OT Discussed with NILA COBIAN MD Jul 22, 2020 11:41
--- NOTE | 2020-07-22 13:33 | NUR ---
SS following up with discharge planning. SS reviewed pt chart and discussed with pt RN. Pt is LTC resident from [facility], ; fax [phone]. Pt is currently requiring oxygen at two liters nasal canula. Pt on IV Zosyn. COVID19 negative. Pt platelet count low today. Per RN, it was 15. Hematology following. SS will continue to follow for discharge planning.
[2020-07-22 13:40] LABS: BASE EXCESS COOX -5 mmol/L (-3-3); HCO3 COOX 21 mmol/L (21-28); METHEMOGLOBIN 0.7 % (0.0-1.9); OXYHEMOGLOBIN 93.5 %; PCO2 COOX 44 mmHg (35-46); PO2 COOX 79 mmHg (65-108); SAT O2 COOX 94 % (92-99)
[2020-07-22 15:00] VITALS: BP 143/79
[2020-07-22 18:57] VITALS: BP 156/75
[2020-07-22] MEDS: DIVALPROEX EXTENDED RELEASE 500 MG TAB.ER.24H. PO SCH (21:52)
[2020-07-22] MEDS: FLUTICASONE 50MCG/NASAL SPRAY 16GM BOTTLE. NS SCH (21:53)
[2020-07-22] MEDS: ZOLPIDEM 5 MG TABLET. PO PRN (21:53)
[2020-07-22 23:18] VITALS: BP 183/76
[2020-07-23] VITALS (9 sets, daily range): BP systolic 140–185; BP diastolic 78–92
[2020-07-23] MEDS: PIPERACILLIN/TAZOBACTAM 3.375 GM in IV NORMAL SALINE 50ML 50 ML IV SCH ×5 (06:00→23:57)
[2020-07-23] MEDS: LEVOTHYROXINE 75 MCG TABLET PO SCH (06:27)
[2020-07-23] MEDS: IPRATRPIUM/ALBUTEROL 0.5/2.5MG 3 ML NEBU. NEB SCH ×4 (07:44→19:52)
[2020-07-23] MEDS: TOPIRAMATE 100 MG TABLET. PO SCH ×2 (08:05→21:33)
[2020-07-23] MEDS: CALCIUM CARBONATE 500 MG TABLET PO SCH ×3 (08:05→17:28)
[2020-07-23] MEDS: SERTRALINE 25 MG TABLET. PO SCH (08:05)
[2020-07-23] MEDS: ASPIRIN CHEWABLE 81 MG TABLET. PO SCH (08:05)
[2020-07-23] MEDS: NYSTATIN TOPICAL POWDER 15GM BOTTLE. TP SCH ×2 (08:06→21:35)
--- NOTE | 2020-07-23 08:38 | PDOC ---
PROGRESS NOTES Date of Service DATE: 07/23/20 TIME: 08:35 Assessment Problems Medical Problems: (1) PNA (pneumonia) Status: Acute Vasovagal syncope Possible epilepsy, anticonvulsants also serve for psychiatric issues, I do not think she has seizures Drug induced extraparametal syndrome History of multiple psychiatric illnesses Strabismus Unable to tolerate MRI, canceled it Pneumonia, hypercapnia, pancytopenia, CKD 4 Plan Further outpatient cardiac testing such as long-term monitoring No additional neurological studies needed Treatment of pneumonia Subjective No complaints Objective Vital Signs Date Time Temp Pulse Resp B/P (MAP) Pulse Ox O2 Delivery O2 Flow Rate FiO2 07/23/20 08:05 79 176/79 07/23/20 07:45 96 Nasal Cannula 2.0 07/23/20 07:00 97.0 16 97.0 Intake and Output 07/23/20 07:00 Intake Total 538 ml Output Total 150 ml Balance 388 ml Intake Oral 538 ml Output Urine Total 150 ml # Voids 2 # Bowel Movements 3 PHYSICAL EXAM Alert. Mittens off, eating breakfast, inappropriate laughing. When I ask her location, she names her breakfast items PERRL. EOMI, bilateral strabismus. CN: no focal findings. Muscle tone: normal. Muscle strength: 4/5 DTR: 2+ Plantar reflex: Flexor Gait: not examined in bed. Sensory exam: no abnormal findings. No cerebellar signs elicited, coarse resting tremor. Review of Relevant I have reviewed the following items bianca (where applicable) has been applied. Labs Laboratory Tests Test 07/21/20 18:11 07/22/20 04:32 07/22/20 13:35 07/22/20 16:10 O2 Saturation 90 % (92-99) 94 % (92-99) Arterial Blood pH 7.27 (7.35-7.45) 7.30 (7.35-7.45) Arterial Blood pCO2 at Patient Temp 50 mmHg (35-46) 44 mmHg (35-46) Arterial Blood pO2 at Patient Temp 64 mmHg (65-108) 79 mmHg (65-108) Arterial Blood HCO3 23 mmol/L (21-28) 21 mmol/L (21-28) Arterial Blood Base Excess -4 mmol/L (-3-3) -5 mmol/L (-3-3) Oxyhemoglobin 88.7 % 93.5 % Methemoglobin 0.6 % (0.0-1.9) 0.7 % (0.0-1.9) Carbon Monoxide, Quantitative 1.1 % (0.0-1.9) 0.1 % (0.0-1.9) FiO2 21 2 lpm nc White Blood Count 1.7 x10^3/uL (4.0-11.0) Red Blood Count 3.10 x10^6/uL (3.50-5.70) Hemoglobin 8.3 g/dL (12.0-15.5) Hematocrit 26.8 % (36.0-47.0) Mean Corpuscular Volume 88 fL (79-100) Mean Corpuscular Hemoglobin 27 pg (25-35) Mean Corpuscular Hemoglobin Concent 31 g/dL (31-37) Red Cell Distribution Width 22.3 % (11.5-14.5) Platelet Count 15 x10^3/uL (140-400) Neutrophils (%) (Auto) 46 % (31-73) Lymphocytes (%) (Auto) 42 % (24-48) Monocytes (%) (Auto) 12 % (0-9) Eosinophils (%) (Auto) 0 % (0-3) Basophils (%) (Auto) 0 % (0-3) Neutrophils # (Auto) 0.8 x10^3/uL (1.8-7.7) Lymphocytes # (Auto) 0.7 x10^3/uL (1.0-4.8) Monocytes # (Auto) 0.2 x10^3/uL (0.0-1.1) Eosinophils # (Auto) 0.0 x10^3/uL (0.0-0.7) Basophils # (Auto) 0.0 x10^3/uL (0.0-0.2) Absolute Reticulocyte Count 0.073 x10^6/uL (0.020-0.120) Percent Reticulocyte Count 2.4 % (0.5-2.3) Immature Reticulocyte Fraction 0.53 (0.20-0.60) Lactate Dehydrogenase 325 U/L (81-234) Laboratory Tests Test 07/22/20 13:35 07/22/20 16:10 O2 Saturation 94 % (92-99) Arterial Blood pH 7.30 (7.35-7.45) Arterial Blood pCO2 at Patient Temp 44 mmHg (35-46) Arterial Blood pO2 at Patient Temp 79 mmHg (65-108) Arterial Blood HCO3 21 mmol/L (21-28) Arterial Blood Base Excess -5 mmol/L (-3-3) Oxyhemoglobin 93.5 % Methemoglobin 0.7 % (0.0-1.9) Carbon Monoxide, Quantitative 0.1 % (0.0-1.9) FiO2 2 lpm nc Lactate Dehydrogenase 325 U/L (81-234) Medications Current Medications Iohexol (Omnipaque 300 Mg/ml) 75 ml 1X ONCE IV Last administered on 07/18/20at 10:15; Start 07/18/20 at 10:15; Stop 07/18/20 at 10:16; Status DC Ceftriaxone Sodium (Rocephin) 1 gm 1X ONCE IVP Last administered on 07/18/20at 17:06; Start 07/18/20 at 12:00; Stop 07/18/20 at 12:01; Status DC Calcium Carbonate/ Glycine (Oscal) 500 mg TIDAFTMEAL PO Last administered on 07/23/20at 08:05; Start 07/18/20 at 18:00 Amlodipine Besylate (Norvasc) 10 mg DAILY PO Last administered on 07/23/20at 08:05; Start 07/19/20 at 09:00 Aspirin (Aspirin Chewable) 81 mg DAILY PO Last administered on 07/23/20at 08:05; Start 07/19/20 at 09:00 Bisacodyl (Dulcolax Supp) 10 mg PRN DAILY PRN [place] CONSTIPATION; Start 07/18/20 at 15:45 Divalproex Sodium (Depakote Er) 1,500 mg QHS PO Last administered on 07/22/20at 21:52; Start 07/18/20 at 21:00 Fluticasone Propionate (Flonase) 2 spray QHS NS Last administered on 07/22/20at 21:53; Start 07/18/20 at 21:00 Levothyroxine Sodium (Synthroid) 75 mcg DAILY06 PO Last administered on 07/23/20at 06:27; Start 07/19/20 at 06:00 Polyethylene Glycol (miraLAX PACKET) 17 gm PRN Q24HRS PRN PO CONSTIPATION; Start 07/18/20 at 15:45 Sertraline HCl (Zoloft) 25 mg DAILY PO Last administered on 07/23/20at 08:05; Start 07/19/20 at 09:00 Topiramate (Topamax) 100 mg BID PO Last administered on 07/23/20at 08:05; Start 07/18/20 at 21:00 Albuterol/ Ipratropium (Duoneb) 3 ml RTQID NEB Last administered on 07/23/20at 07:44; Start 07/18/20 at 16:00 Piperacillin Sod/ Tazobactam Sod (Zosyn Per Pharmacy) 1 each PRN DAILY PRN MC SEE COMMENTS; Start 07/18/20 at 15:45 Sodium Chloride 1,000 ml @ 100 mls/hr Q10H IV Last administered on 07/22/20at 17:21; Start 07/18/20 at 17:00 Ondansetron HCl (Zofran) 4 mg PRN Q6HRS PRN IVP NAUSEA/VOMITING; Start 07/18/20 at 16:00 Al Hydroxide/Mg Hydroxide (Mylanta Plus Xs) 30 ml PRN Q3HRS PRN PO HEARTBURN / GAS; Start 07/18/20 at 16:00 Calcium Carbonate/ Glycine (Tums) 500 mg PRN Q3HRS PRN PO UPSET STOMACH; Start 07/18/20 at 16:00 Zolpidem Tartrate (Ambien) 5 mg PRN QHS PRN PO INSOMNIA, MAY REPEAT IN 1HR Last administered on 07/22/20at 21:53; Start 07/18/20 at 16:00 Acetaminophen/ Hydrocodone Bitart (Lortab 5/325) 1 tab PRN Q4HRS PRN PO MILD PAIN 1-3; Start 07/18/20 at 16:00 Acetaminophen (Tylenol) 650 mg PRN Q6HRS PRN PO Headaches, Temp > 101.5F; Start 07/18/20 at 16:00 Enoxaparin Sodium (Lovenox 40mg Syringe) 40 mg Q24H SQ Last administered on 07/18/20at 20:07; Start 07/18/20 at 21:00; Stop 07/19/20 at 15:38; Status DC Piperacillin Sod/ Tazobactam Sod 3.375 gm/Sodium Chloride 50 ml @ 100 mls/hr Q6HRS IV Last administered on 07/23/20at 06:00; Start 07/18/20 at 18:00 Labetalol HCl (Normodyne Iv Push) 20 mg PRN Q2HR PRN IVP HYPERTENSION Last administered on 07/20/20at 03:43; Start 07/20/20 at 03:30 Nystatin (Nystop) 1 carmen BID TP Last administered on 07/23/20at 08:06; Start 07/22/20 at 00:00 Active Scripts Active Bisacodyl 10 Mg Supp.rect 10 Mg [place] PRN DAILY PRN 30 Days [place] Saline Nasal Gel (Sodium Chloride/Aloe Vera) 14.1 Gm Gel..gram. 1 Carmen NS PRN DAILY PRN 30 Days Fluticasone Propionate Nasal [place] (Fluticasone Propionate) 16 Gm [place].susp 2 [place] NS QHS 30 Days Amlodipine Besylate 10 Mg Tablet 10 Mg PO DAILY 30 Days Reported Zofran (Ondansetron Hcl) 4 Mg Tablet 1 Tab PO Q6HRS Acetaminophen 325 Mg Tablet 650 Mg PO PRN Q6HRS PRN Combivent Respimat Inhal (Ipratropium/Albuterol Sulfate) 4 Gm Aer.w.adap 2 Inh IH QID Latuda (Lurasidone Hcl) 20 Mg Tablet 1 Tab PO DAILY 30 Days Zoloft (Sertraline Hcl) 25 Mg Tablet 1 Tab PO DAILY Nystatin 15 Gm Powder 1 Carmen TP PRN PRN 7 Days apply to affected area(s) Miralax (Polyethylene Glycol 3350) 17 Gm Powd.pack 1 Packet PO PRN Q24HRS PRN 2 Days dissolve in water Miralax (Polyethylene Glycol 3350) 17 Gm Powd.pack 1 Packet PO QMWF 2 Days dissolve in water Depakote Er (Divalproex Sodium) 500 Mg Tab.er.24h 3 Tab PO QHS Mylanta Maximum Strength Liq (Mag Hydrox/Aluminum Hyd/Simeth) 355 Ml Oral.susp 30 Ml PO PRN Q4HRS PRN Risperdal Consta (Risperidone Microspheres) 37.5 Mg/2 Ml Disp.syrin 50 Mg IM Q2WKS Topamax (Topiramate) 100 Mg Tablet 1 Tab PO BID Risperdal (Risperidone) 4 Mg Tablet 1 Tab PO BID Milk Of Magnesia (Magnesium Hydroxide) 400 Mg/5 Ml Oral.susp 30 Ml PO DAILY PRN Anti-Diarrhea (Loperamide Hcl) 2 Mg Tablet 2 Mg PO PRN Levothyroxine Sodium 75 Mcg Tablet 1 Tab PO DAILY Aspirin 81 Mg Tab.chew 1 Tab PO DAILY Vitals/I & O Vital Sign - Last 24 Hours 07/22/20 07/22/20 07/22/20 07/22/20 10:25 11:21 15:00 15:30 Temp 97.4 98.0 97.4 98.0 Pulse 85 82 Resp 20 20 B/P (MAP) 163/81 (108) 143/79 (100) Pulse Ox 99 100 96 100 O2 Delivery BiPAP/CPAP BiPAP/CPAP BiPAP/CPAP O2 Flow Rate 40.0 07/22/20 07/22/20 07/22/20 07/22/20 18:57 19:24 19:26 20:00 Temp 98.2 98.2 Pulse 82 Resp 16 B/P (MAP) 156/75 (102) Pulse Ox 96 100 100 O2 Delivery BiPAP/CPAP Nasal Cannula BiPAP/CPAP Bi-pap O2 Flow Rate 2.0 07/22/20 07/22/20 07/23/20 07/23/20 23:18 23:59 03:00 07:00 Temp 98.1 97.0 98.1 97.0 Pulse 62 79 79 Resp 16 22 16 B/P (MAP) 183/76 (111) 142/92 (109) 176/79 (111) Pulse Ox 100 100 96 94 O2 Delivery BiPAP/CPAP BiPAP/CPAP Nasal Cannula Nasal Cannula O2 Flow Rate 2.0 2.0 07/23/20 07/23/20 07:45 08:05 Pulse 79 B/P (MAP) 176/79 Pulse Ox 96 O2 Delivery Nasal Cannula O2 Flow Rate 2.0 Intake and Output 07/22/20 07/22/20 07/23/20 15:00 23:00 07:00 Intake Total 238 ml 100 ml 200 ml Output Total 150 ml Balance 88 ml 100 ml 200 ml Justicifation of Admission Dx: Justifications for Admission: Justification of Admission Dx: Yes Altered Mental Status: Altered Mental Status SANAM TAPIA MD Jul 23, 2020 08:38
--- NOTE | 2020-07-23 10:14 | PDOC ---
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 Cardiomegaly with increased bilateral pulmonary opacities and small pleural effusions. // could reflect pulmonary edema vs multifocal pneumonia. BiPAP at nighttime and p.r.n. during the day. Avoid any sedatives. Continue empiric antibiotics. SEVERE, PROFOUND thrombocytopenia PLTS 15K 2-23 , hematology following Plan: Multiple previous admissions for syncope with psychiatric components over the past months, not requiring antibiotics. Will continue treatment of HCAP with Zosyn. Suspect vasovagal syncope. She has had 3 prior admissions over the past year for similar symptoms, most recently on 06/21/2020. She was recommended outpatient loop recorder. Consultations placed to neurology MRI brain pending, with further neurological work-up if abnormal MRI. She has history of chronic leukopenia, previously evaluated by Dr. Calderon with Hematology/Oncology. However she did not follow-up with outpatient work- up. Baseline creatinine 1.6 with baseline GFR around 39.8 consistent with CKD 3b IV normal saline Calcium carbonate 3 times daily with meals Resume home medications FEN - Cardiac diet PPX - Lovenox FULL CODE Dispo - inpatient for above heme consult nutrition consult History of Present Illness History of Present Illness Patient is a 60-year-old female who is well-known to our service who presents from [facility] by EMS as a code stroke. Per EMS report patient with walking when she suddenly fell onto padded chairs and became unresponsive. Upon EMS arrival she was nodding her head and moaning, with right-sided weakness. Symptoms resolved upon arrival to ED and she was without any focal neurologic deficits. Code stroke initially activated, but after discussion with Dr. Juarez, TPA was not given. Chest x-ray on admission showed faint patchy opacity at the right lung base, consistent with pneumonia. History was obtained through chart review secondary to patient's clinical condition. Will admit patient for further medical management. 07/19: Patient somnolent, difficult to arouse. Denies any questions. Afebrile. Discussed with Dr. Juarez, risks exceed benefit for MRI under general anesthesia. No additional neurological studies needed. Continue treatment for HCAP. Platelets 28, will hold Lovenox. Initiate SCDs. ABG obtained by RT showed elevated PCO2 and concern for CO2 narcosis. Will place on BiPAP and consult pulmonology. 07/20: ABG yesterday showed significant hypercapnia, discussed with RT. Place patient on BiPAP overnight with improvement in PCO2. Consultation was placed to pulmonology. Platelet count 20 today, will hold VTE prophylaxis. She has a noted history of pancytopenia. Procalcitonin mildly elevated. Continue antibiotic treatment for HCAP. She continues to improve on BiPAP she may discharge back to her detention sometime early next week to finish oral antibiotic treatment outpatient. 2 PLt'S remain critically low, hematology consulted Place patient on BiPAP overnight with improvement in PCO2. Consultation pulmonology., hematology , neurology Cannot exclude the possibility of seizure.neurology doubts this is likely CT head with no evidence of any ischemic or hemorrhagic stroke. Not on narcotics. 24 PLt'S remain critically low, hematology consulted BiPAP overnight with improvement in PCO2. Consultation pulmonology., hematology , neurology Cannot exclude the possibility of seizure.neurology doubts this is likely CT head with no evidence of any ischemic or hemorrhagic stroke. CBC PENDING TODAY 26 min pt exam, chart review, > 50% of time spent with exam, chart review, pt care coordination D/W RN Vitals Vitals Vital Signs Date Time Temp Pulse Resp B/P (MAP) Pulse Ox O2 Delivery O2 Flow Rate FiO2 07/23/20 08:05 79 176/79 07/23/20 08:00 Nasal Cannula 2.0 07/23/20 07:45 96 07/23/20 07:00 97.0 16 97.0 Physical Exam Physical Exam MITTS ON eating breakfast, inappropriate laughing. General: Somnolent, uncooperative. No acute distress lying in bed on bipap HEENT: PERRLA, EOMI Lungs: Decreased breath sounds bilaterally. Normal air movement Heart: RRR, no murmurs Cardiovascular: S1, S2 Abdomen: Normal bowel sounds, Soft, No tenderness Extremities: 2+ edema bilateral lower extremities. No clubbing, No cyanosis Skin: No rashes, No significant lesion Neuro: Somnolent normal tone, General: Other (Obtunded) Heart: Regular rate, Normal S1, Normal S2 Lungs: Clear, Other Abdomen: Normal bowel sounds, Soft, No tenderness Extremities: No clubbing, No cyanosis Skin: No rashes, No breakdown Labs LABS Laboratory Tests Test 07/22/20 13:35 07/22/20 16:10 O2 Saturation 94 % (92-99) Arterial Blood pH 7.30 (7.35-7.45) Arterial Blood pCO2 at Patient Temp 44 mmHg (35-46) Arterial Blood pO2 at Patient Temp 79 mmHg (65-108) Arterial Blood HCO3 21 mmol/L (21-28) Arterial Blood Base Excess -5 mmol/L (-3-3) Oxyhemoglobin 93.5 % Methemoglobin 0.7 % (0.0-1.9) Carbon Monoxide, Quantitative 0.1 % (0.0-1.9) FiO2 2 lpm nc Lactate Dehydrogenase 325 U/L (81-234) Assessment and Plan Assessmemt and Plan Problems Medical Problems: (1) PNA (pneumonia) Status: Acute Comment Review of Relevant I have reviewed the following items bianca (where applicable) has been applied. Labs Laboratory Tests Test 07/21/20 18:11 07/22/20 04:32 07/22/20 13:35 07/22/20 16:10 O2 Saturation 90 % (92-99) 94 % (92-99) Arterial Blood pH 7.27 (7.35-7.45) 7.30 (7.35-7.45) Arterial Blood pCO2 at Patient Temp 50 mmHg (35-46) 44 mmHg (35-46) Arterial Blood pO2 at Patient Temp 64 mmHg (65-108) 79 mmHg (65-108) Arterial Blood HCO3 23 mmol/L (21-28) 21 mmol/L (21-28) Arterial Blood Base Excess -4 mmol/L (-3-3) -5 mmol/L (-3-3) Oxyhemoglobin 88.7 % 93.5 % Methemoglobin 0.6 % (0.0-1.9) 0.7 % (0.0-1.9) Carbon Monoxide, Quantitative 1.1 % (0.0-1.9) 0.1 % (0.0-1.9) FiO2 21 2 lpm nc White Blood Count 1.7 x10^3/uL (4.0-11.0) Red Blood Count 3.10 x10^6/uL (3.50-5.70) Hemoglobin 8.3 g/dL (12.0-15.5) Hematocrit 26.8 % (36.0-47.0) Mean Corpuscular Volume 88 fL (79-100) Mean Corpuscular Hemoglobin 27 pg (25-35) Mean Corpuscular Hemoglobin Concent 31 g/dL (31-37) Red Cell Distribution Width 22.3 % (11.5-14.5) Platelet Count 15 x10^3/uL (140-400) Neutrophils (%) (Auto) 46 % (31-73) Lymphocytes (%) (Auto) 42 % (24-48) Monocytes (%) (Auto) 12 % (0-9) Eosinophils (%) (Auto) 0 % (0-3) Basophils (%) (Auto) 0 % (0-3) Neutrophils # (Auto) 0.8 x10^3/uL (1.8-7.7) Lymphocytes # (Auto) 0.7 x10^3/uL (1.0-4.8) Monocytes # (Auto) 0.2 x10^3/uL (0.0-1.1) Eosinophils # (Auto) 0.0 x10^3/uL (0.0-0.7) Basophils # (Auto) 0.0 x10^3/uL (0.0-0.2) Absolute Reticulocyte Count 0.073 x10^6/uL (0.020-0.120) Percent Reticulocyte Count 2.4 % (0.5-2.3) Immature Reticulocyte Fraction 0.53 (0.20-0.60) Lactate Dehydrogenase 325 U/L (81-234) Laboratory Tests Test 07/22/20 13:35 07/22/20 16:10 O2 Saturation 94 % (92-99) Arterial Blood pH 7.30 (7.35-7.45) Arterial Blood pCO2 at Patient Temp 44 mmHg (35-46) Arterial Blood pO2 at Patient Temp 79 mmHg (65-108) Arterial Blood HCO3 21 mmol/L (21-28) Arterial Blood Base Excess -5 mmol/L (-3-3) Oxyhemoglobin 93.5 % Methemoglobin 0.7 % (0.0-1.9) Carbon Monoxide, Quantitative 0.1 % (0.0-1.9) FiO2 2 lpm nc Lactate Dehydrogenase 325 U/L (81-234) Medications Current Medications Iohexol (Omnipaque 300 Mg/ml) 75 ml 1X ONCE IV Last administered on 07/18/20at 10:15; Start 07/18/20 at 10:15; Stop 07/18/20 at 10:16; Status DC Ceftriaxone Sodium (Rocephin) 1 gm 1X ONCE IVP Last administered on 07/18/20at 17:06; Start 07/18/20 at 12:00; Stop 07/18/20 at 12:01; Status DC Calcium Carbonate/ Glycine (Oscal) 500 mg TIDAFTMEAL PO Last administered on 07/23/20at 08:05; Start 07/18/20 at 18:00 Amlodipine Besylate (Norvasc) 10 mg DAILY PO Last administered on 07/23/20at 08:05; Start 07/19/20 at 09:00 Aspirin (Aspirin Chewable) 81 mg DAILY PO Last administered on 07/23/20at 08:05; Start 07/19/20 at 09:00 Bisacodyl (Dulcolax Supp) 10 mg PRN DAILY PRN [place] CONSTIPATION; Start 07/18/20 at 15:45 Divalproex Sodium (Depakote Er) 1,500 mg QHS PO Last administered on 07/22/20at 21:52; Start 07/18/20 at 21:00 Fluticasone Propionate (Flonase) 2 spray QHS NS Last administered on 07/22/20at 21:53; Start 07/18/20 at 21:00 Levothyroxine Sodium (Synthroid) 75 mcg DAILY06 PO Last administered on 07/23/20at 06:27; Start 07/19/20 at 06:00 Polyethylene Glycol (miraLAX PACKET) 17 gm PRN Q24HRS PRN PO CONSTIPATION; Start 07/18/20 at 15:45 Sertraline HCl (Zoloft) 25 mg DAILY PO Last administered on 07/23/20at 08:05; Start 07/19/20 at 09:00 Topiramate (Topamax) 100 mg BID PO Last administered on 07/23/20at 08:05; Start 07/18/20 at 21:00 Albuterol/ Ipratropium (Duoneb) 3 ml RTQID NEB Last administered on 07/23/20at 07:44; Start 07/18/20 at 16:00 Piperacillin Sod/ Tazobactam Sod (Zosyn Per Pharmacy) 1 each PRN DAILY PRN MC SEE COMMENTS; Start 07/18/20 at 15:45 Sodium Chloride 1,000 ml @ 100 mls/hr Q10H IV Last administered on 07/22/20at 17:21; Start 07/18/20 at 17:00 Ondansetron HCl (Zofran) 4 mg PRN Q6HRS PRN IVP NAUSEA/VOMITING; Start 07/18/20 at 16:00 Al Hydroxide/Mg Hydroxide (Mylanta Plus Xs) 30 ml PRN Q3HRS PRN PO HEARTBURN / GAS; Start 07/18/20 at 16:00 Calcium Carbonate/ Glycine (Tums) 500 mg PRN Q3HRS PRN PO UPSET STOMACH; Start 07/18/20 at 16:00 Zolpidem Tartrate (Ambien) 5 mg PRN QHS PRN PO INSOMNIA, MAY REPEAT IN 1HR Last administered on 07/22/20at 21:53; Start 07/18/20 at 16:00 Acetaminophen/ Hydrocodone Bitart (Lortab 5/325) 1 tab PRN Q4HRS PRN PO MILD PAIN 1-3; Start 07/18/20 at 16:00 Acetaminophen (Tylenol) 650 mg PRN Q6HRS PRN PO Headaches, Temp > 101.5F; Start 07/18/20 at 16:00 Enoxaparin Sodium (Lovenox 40mg Syringe) 40 mg Q24H SQ Last administered on 07/18/20at 20:07; Start 07/18/20 at 21:00; Stop 07/19/20 at 15:38; Status DC Piperacillin Sod/ Tazobactam Sod 3.375 gm/Sodium Chloride 50 ml @ 100 mls/hr Q6HRS IV Last administered on 07/23/20at 06:00; Start 07/18/20 at 18:00 Labetalol HCl (Normodyne Iv Push) 20 mg PRN Q2HR PRN IVP HYPERTENSION Last administered on 07/20/20at 03:43; Start 07/20/20 at 03:30 Nystatin (Nystop) 1 carmen BID TP Last administered on 07/23/20at 08:06; Start 07/22/20 at 00:00 Active Scripts Active Bisacodyl 10 Mg Supp.rect 10 Mg [place] PRN DAILY PRN 30 Days [place] Saline Nasal Gel (Sodium Chloride/Aloe Vera) 14.1 Gm Gel..gram. 1 Carmen NS PRN DAILY PRN 30 Days Fluticasone Propionate Nasal [place] (Fluticasone Propionate) 16 Gm [place].susp 2 [place] NS QHS 30 Days Amlodipine Besylate 10 Mg Tablet 10 Mg PO DAILY 30 Days Reported Zofran (Ondansetron Hcl) 4 Mg Tablet 1 Tab PO Q6HRS Acetaminophen 325 Mg Tablet 650 Mg PO PRN Q6HRS PRN Combivent Respimat Inhal (Ipratropium/Albuterol Sulfate) 4 Gm Aer.w.adap 2 Inh IH QID Latuda (Lurasidone Hcl) 20 Mg Tablet 1 Tab PO DAILY 30 Days Zoloft (Sertraline Hcl) 25 Mg Tablet 1 Tab PO DAILY Nystatin 15 Gm Powder 1 Carmen TP PRN PRN 7 Days apply to affected area(s) Miralax (Polyethylene Glycol 3350) 17 Gm Powd.pack 1 Packet PO PRN Q24HRS PRN 2 Days dissolve in water Miralax (Polyethylene Glycol 3350) 17 Gm Powd.pack 1 Packet PO QMWF 2 Days dissolve in water Depakote Er (Divalproex Sodium) 500 Mg Tab.er.24h 3 Tab PO QHS Mylanta Maximum Strength Liq (Mag Hydrox/Aluminum Hyd/Simeth) 355 Ml Oral.susp 30 Ml PO PRN Q4HRS PRN Risperdal Consta (Risperidone Microspheres) 37.5 Mg/2 Ml Disp.syrin 50 Mg IM Q2W [place] Topamax (Topiramate) 100 Mg Tablet 1 Tab PO BID Risperdal (Risperidone) 4 Mg Tablet 1 Tab PO BID Milk Of Magnesia (Magnesium Hydroxide) 400 Mg/5 Ml Oral.susp 30 Ml PO DAILY PRN Anti-Diarrhea (Loperamide Hcl) 2 Mg Tablet 2 Mg PO PRN Levothyroxine Sodium 75 Mcg Tablet 1 Tab PO DAILY Aspirin 81 Mg Tab.chew 1 Tab PO DAILY Vitals/I & O Vital Sign - Last 24 Hours 07/22/20 07/22/20 07/22/20 07/22/20 10:25 11:21 15:00 15:30 Temp 97.4 98.0 97.4 98.0 Pulse 85 82 Resp 20 20 B/P (MAP) 163/81 (108) 143/79 (100) Pulse Ox 99 100 96 100 O2 Delivery BiPAP/CPAP BiPAP/CPAP BiPAP/CPAP O2 Flow Rate 40.0 07/22/20 07/22/20 07/22/20 07/22/20 18:57 19:24 19:26 20:00 Temp 98.2 98.2 Pulse 82 Resp 16 B/P (MAP) 156/75 (102) Pulse Ox 96 100 100 O2 Delivery BiPAP/CPAP Nasal Cannula BiPAP/CPAP Bi-pap O2 Flow Rate 2.0 07/22/20 07/22/20 07/23/20 07/23/20 23:18 23:59 03:00 07:00 Temp 98.1 97.0 98.1 97.0 Pulse 62 79 79 Resp 16 22 16 B/P (MAP) 183/76 (111) 142/92 (109) 176/79 (111) Pulse Ox 100 100 96 94 O2 Delivery BiPAP/CPAP BiPAP/CPAP Nasal Cannula Nasal Cannula O2 Flow Rate 2.0 2.0 07/23/20 07/23/20 07/23/20 07:45 08:00 08:05 Pulse 79 B/P (MAP) 176/79 Pulse Ox 96 O2 Delivery Nasal Cannula Nasal Cannula O2 Flow Rate 2.0 2.0 Intake and Output 07/22/20 07/22/20 07/23/20 15:00 23:00 07:00 Intake Total 238 ml 100 ml 200 ml Output Total 150 ml Balance 88 ml 100 ml 200 ml Justicifation of Admission Dx: Justifications for Admission: Justification of Admission Dx: Yes Altered Mental Status: Altered Mental Status ROGER ALVARADO MD Jul 23, 2020 10:14
--- NOTE | 2020-07-23 12:08 | PDOC ---
PULMONARY PROGRESS NOTES DATE: 07/23/20 TIME: 12:07 Subjective Patient is more awake and alert today On room air Or BiPAP overnight last night No other concerns from nursing Vitals Vital Signs Date Time Temp Pulse Resp B/P (MAP) Pulse Ox O2 Delivery O2 Flow Rate FiO2 07/23/20 10:37 97.7 100 18 151/78 (102) 90 Nasal Cannula 2.0 97.7 ROS: No Nausea, No Chest Pain, No Abdominal Pain, No Increase Cough General: Alert, Lethargic Lungs: Clear, Other Cardiovascular: S1, S2 Labs Laboratory Tests Test 07/21/20 18:11 07/22/20 04:32 07/22/20 13:35 07/22/20 16:10 O2 Saturation 90 % (92-99) 94 % (92-99) Arterial Blood pH 7.27 (7.35-7.45) 7.30 (7.35-7.45) Arterial Blood pCO2 at Patient Temp 50 mmHg (35-46) 44 mmHg (35-46) Arterial Blood pO2 at Patient Temp 64 mmHg (65-108) 79 mmHg (65-108) Arterial Blood HCO3 23 mmol/L (21-28) 21 mmol/L (21-28) Arterial Blood Base Excess -4 mmol/L (-3-3) -5 mmol/L (-3-3) Oxyhemoglobin 88.7 % 93.5 % Methemoglobin 0.6 % (0.0-1.9) 0.7 % (0.0-1.9) Carbon Monoxide, Quantitative 1.1 % (0.0-1.9) 0.1 % (0.0-1.9) FiO2 21 2 lpm nc White Blood Count 1.7 x10^3/uL (4.0-11.0) Red Blood Count 3.10 x10^6/uL (3.50-5.70) Hemoglobin 8.3 g/dL (12.0-15.5) Hematocrit 26.8 % (36.0-47.0) Mean Corpuscular Volume 88 fL (79-100) Mean Corpuscular Hemoglobin 27 pg (25-35) Mean Corpuscular Hemoglobin Concent 31 g/dL (31-37) Red Cell Distribution Width 22.3 % (11.5-14.5) Platelet Count 15 x10^3/uL (140-400) Neutrophils (%) (Auto) 46 % (31-73) Lymphocytes (%) (Auto) 42 % (24-48) Monocytes (%) (Auto) 12 % (0-9) Eosinophils (%) (Auto) 0 % (0-3) Basophils (%) (Auto) 0 % (0-3) Neutrophils # (Auto) 0.8 x10^3/uL (1.8-7.7) Lymphocytes # (Auto) 0.7 x10^3/uL (1.0-4.8) Monocytes # (Auto) 0.2 x10^3/uL (0.0-1.1) Eosinophils # (Auto) 0.0 x10^3/uL (0.0-0.7) Basophils # (Auto) 0.0 x10^3/uL (0.0-0.2) Absolute Reticulocyte Count 0.073 x10^6/uL (0.020-0.120) Percent Reticulocyte Count 2.4 % (0.5-2.3) Immature Reticulocyte Fraction 0.53 (0.20-0.60) Lactate Dehydrogenase 325 U/L (81-234) Laboratory Tests Test 07/22/20 13:35 07/22/20 16:10 O2 Saturation 94 % (92-99) Arterial Blood pH 7.30 (7.35-7.45) Arterial Blood pCO2 at Patient Temp 44 mmHg (35-46) Arterial Blood pO2 at Patient Temp 79 mmHg (65-108) Arterial Blood HCO3 21 mmol/L (21-28) Arterial Blood Base Excess -5 mmol/L (-3-3) Oxyhemoglobin 93.5 % Methemoglobin 0.7 % (0.0-1.9) Carbon Monoxide, Quantitative 0.1 % (0.0-1.9) FiO2 2 lpm nc Lactate Dehydrogenase 325 U/L (81-234) Medications Active Scripts Medications Dose Route/Sig Max Daily Dose Days Date Category Dose Instructions Bisacodyl 10 Mg Supp.rect 10 Mg OK PRN DAILY PRN 30 06/25/20 Rx [place] Saline Nasal Gel (Sodium Chloride/Aloe Vera) 14.1 Gm Gel..gram. 1 [place] NS PRN DAILY PRN 30 06/25/20 Rx Fluticasone Propionate Nasal [place] (Fluticasone Propionate) 16 Gm [place].susp 2 [place] NS QHS 30 06/25/20 Rx Amlodipine Besylate 10 Mg Tablet 10 Mg PO DAILY 30 06/25/20 Rx Zofran (Ondansetron Hcl) 4 Mg Tablet 1 Tab PO Q6HRS 06/21/20 Reported Acetaminophen 325 Mg Tablet 650 Mg PO PRN Q6HRS PRN 06/02/20 Reported Combivent Respimat Inhal (Ipratropium/Albuterol Sulfate) 4 Gm Aer.w.adap 2 Inh IH QID 05/24/20 Reported Latuda (Lurasidone Hcl) 20 Mg Tablet 1 Tab PO DAILY 30 05/24/20 Reported Zoloft (Sertraline Hcl) 25 Mg Tablet 1 Tab PO DAILY 11/09/19 Reported Nystatin 15 Gm Powder 1 [place] TP PRN PRN 7 11/09/19 Reported apply to affected area(s) Miralax (Polyethylene Glycol 3350) 17 Gm Powd.pack 1 Packet PO PRN Q24HRS PRN 2 11/09/19 Reported dissolve in water Miralax (Polyethylene Glycol 3350) 17 Gm Powd.pack 1 Packet PO QMWF 2 11/09/19 Reported dissolve in water Depakote Er (Divalproex Sodium) 500 Mg Tab.er.24h 3 Tab PO QHS 11/09/19 Reported Mylanta Maximum Strength Liq (Mag Hydrox/Aluminum Hyd/Simeth) 355 Ml Oral.susp 30 Ml PO PRN Q4HRS PRN 11/09/19 Reported Risperdal Consta (Risperidone Microspheres) 37.5 Mg/2 Ml Disp.syrin 50 Mg IM Q2WKS 01/03/17 Reported Topamax (Topiramate) 100 Mg Tablet 1 Tab PO BID 01/03/17 Reported Risperdal (Risperidone) 4 Mg Tablet 1 Tab PO BID 01/03/17 Reported Milk Of Magnesia (Magnesium Hydroxide) 400 Mg/5 Ml Oral.susp 30 Ml PO DAILY PRN 01/03/17 Reported Anti-Diarrhea (Loperamide Hcl) 2 Mg Tablet 2 Mg PO PRN 01/03/17 Reported Levothyroxine Sodium 75 Mcg Tablet 1 Tab PO DAILY 01/03/17 Reported Aspirin 81 Mg Tab.chew 1 Tab PO DAILY 01/03/17 Reported Impression . IMPRESSION: 1. Acute hypercapnic respiratory failure of unclear etiology. Reportedly, she is not a smoker. Could be contributed by transient ischemic attack symptoms/ encephalopathy.--improved with BIPAP Cannot exclude the possibility of seizure. CT head with no evidence of any ischemic or hemorrhagic stroke. Not on narcotics. She is currently on BiPAP and her blood gases have improved. 2. Leukopenia and thrombocytopenia. Needs further evaluation. Hematology consultation. 3. No significant tobacco history. 4. Right lower lobe interstitial faint infiltrate. Need to cover for aspiration pneumonia. Currently on Zosyn. 5. Mildly increased procalcitonin level. Currently being covered with antibiotics. Plan . RECOMMENDATIONS: Continue supplemental oxygen to keep sats above 92%, currently on room air BiPAP at at bedtime 20/6 with a rate of 24 to 40% Avoid any sedatives Continue empiric antibiotics on Zosyn Follow Neurology recommendations Monitor BUN and creatinine, improved Follow Hematology recs for her thrombocytopenia as well as leukopenia HTN per PCP PT/OT Discussed with NILA COBIAN MD Jul 23, 2020 12:08
[2020-07-23] MEDS: IV NORMAL SALINE 1000ML BAG 1,000 ML IV SCH (12:19)
[2020-07-23] MEDS: LISINOPRIL 5 MG TABLET. PO SCH ×2 (12:20→21:34)
--- NOTE | 2020-07-23 13:53 | NUR ---
SS following up with discharge planning. SS reviewed pt chart and discussed with pt RN. Pt is is currently requiring oxygen at two liters nasal canula. COVID19 negative. Pt on IV Zosyn. Hematology following for low platelet count. Pt is LTC resident from [facility], ; fax [phone], and is able to return when medically ready. SS will continue to follow for discharge planning.
--- NOTE | 2020-07-23 14:02 | NUR ---
RN NOTE this RN took over care for this patient and agrees with previous RN's assessments and notes. will continue to monitor.
[2020-07-23 16:05] LABS: BASO % 1 % (0-3); EOS % 0 % (0-3); HEMATOCRIT 22.8 % (36.0-47.0); HEMOGLOBIN 7.1 g/dL (12.0-15.5); LYMPH # 0.6 x10^3/uL (1.0-4.8); LYMPH % 43 % (24-48); MEAN CORPUSCULAR HEMOGLOBIN 27 pg (25-35); MEAN CORPUSCULAR HGB CONC 31 g/dL (31-37); MEAN CORPUSCULAR VOLUME 87 fL (79-100); MONO # 0.2 x10^3/uL (0.0-1.1); MONO % 12 % (0-9); NEUT # 0.6 x10^3/uL (1.8-7.7); NEUT % 45 % (31-73); RED BLOOD COUNT 2.62 x10^6/uL (3.50-5.40); RED CELL DISTRIBUTION WIDTH 22.2 % (11.5-14.5)
[2020-07-23 16:10] LABS: PLATELET COUNT 8 x10^3/uL (140-400); WHITE BLOOD COUNT 1.4 x10^3/uL (4.0-11.0)
[2020-07-23 16:15] LABS: ALBUMIN 1.2 g/dL (3.4-5.0); ALBUMIN/GLOBULIN RATIO 0.3 (1.0-1.7); ALK PHOS 40 U/L (46-116); ANION GAP 4 (6-14); AST (SGOT) 12 U/L (15-37); BLOOD UREA NITROGEN 15 mg/dL (7-20); BUN/CREATININE RATIO 9 (6-20); CALCIUM 8.2 mg/dL (8.5-10.1); CARBON DIOXIDE 24 mmol/L (21-32); CHLORIDE 114 mmol/L (98-107); CREATININE 1.6 mg/dL (0.6-1.0); GFR 39.8; GLUCOSE 90 mg/dL (70-99); SODIUM 142 mmol/L (136-145); TOTAL BILIRUBIN 0.2 mg/dL (0.2-1.0); TOTAL PROTEIN 5.3 g/dL (6.4-8.2)
--- NOTE | 2020-07-23 16:15 | NUR ---
RN NOTE lab called with a critical lab wbc 1.4 and plt [address] Estes paged and returned call at 1612. see database for orders
[2020-07-23 16:17] LABS: ALT (SGPT) < 6 U/L (14-59)
[2020-07-23] MEDS: LABETALOL 20 MG/4 ML DISP.SYRIN. IVP PRN (16:27)
[2020-07-23 16:39] LABS: ANISOCYTOSIS MOD; HYPOCHROMIA MOD; OVALOCYTES FEW; PLT ESTIMATE DECREASED (ADEQUATE); POIKILOCYTOSIS SLIGHT
[2020-07-23] MEDS: FLUTICASONE 50MCG/NASAL SPRAY 16GM BOTTLE. NS SCH (21:00)
[2020-07-23] MEDS: DIVALPROEX EXTENDED RELEASE 500 MG TAB.ER.24H. PO SCH (21:34)
[2020-07-24] VITALS (8 sets, daily range): BP systolic 105–188; BP diastolic 70–95
[2020-07-24 05:43] LABS: CALCIUM 8.7 mg/dL (8.5-10.1); CREATININE 1.5 mg/dL (0.6-1.0); GFR 42.9; POTASSIUM 4.2 mmol/L (3.5-5.1)
[2020-07-24] MEDS: PIPERACILLIN/TAZOBACTAM 3.375 GM in IV NORMAL SALINE 50ML 50 ML IV SCH (06:05)
[2020-07-24] MEDS: LEVOTHYROXINE 75 MCG TABLET PO SCH (06:05)
[2020-07-24] MEDS: TOPIRAMATE 100 MG TABLET. PO SCH ×2 (08:30→21:34)
[2020-07-24] MEDS: ASPIRIN CHEWABLE 81 MG TABLET. PO SCH (08:30)
[2020-07-24] MEDS: CALCIUM CARBONATE 500 MG TABLET PO SCH ×3 (08:30→18:12)
[2020-07-24] MEDS: SERTRALINE 25 MG TABLET. PO SCH (08:30)
[2020-07-24] MEDS: LISINOPRIL 5 MG TABLET. PO SCH ×2 (08:31→21:34)
[2020-07-24] MEDS: NYSTATIN TOPICAL POWDER 15GM BOTTLE. TP SCH ×2 (08:36→21:34)
[2020-07-24] MEDS: IPRATRPIUM/ALBUTEROL 0.5/2.5MG 3 ML NEBU. NEB SCH ×4 (09:06→20:20)
--- NOTE | 2020-07-24 10:36 | PDOC ---
PULMONARY PROGRESS NOTES DATE: 07/24/20 TIME: 10:33 Subjective Patient is more awake and alert today On room air wore BiPAP overnight last night No other concerns from nursing Vitals Vital Signs Date Time Temp Pulse Resp B/P (MAP) Pulse Ox O2 Delivery O2 Flow Rate FiO2 07/24/20 09:07 96 Nasal Cannula 3.0 07/24/20 08:31 86 121/90 07/24/20 07:00 98.4 20 98.4 ROS: No Nausea, No Chest Pain, No Abdominal Pain, No Increase Cough General: Alert, Lethargic Lungs: Clear, Other Cardiovascular: S1, S2 Labs Laboratory Tests Test 07/22/20 13:35 07/22/20 16:10 07/23/20 15:55 07/24/20 04:55 O2 Saturation 94 % (92-99) Arterial Blood pH 7.30 (7.35-7.45) Arterial Blood pCO2 at Patient Temp 44 mmHg (35-46) Arterial Blood pO2 at Patient Temp 79 mmHg (65-108) Arterial Blood HCO3 21 mmol/L (21-28) Arterial Blood Base Excess -5 mmol/L (-3-3) Oxyhemoglobin 93.5 % Methemoglobin 0.7 % (0.0-1.9) Carbon Monoxide, Quantitative 0.1 % (0.0-1.9) FiO2 2 lpm nc Haptoglobin 97 mg/dL (33-346) Erythropoietin 70.2 mIU/mL (2.6-18.5) Lactate Dehydrogenase 325 U/L (81-234) White Blood Count 1.4 x10^3/uL (4.0-11.0) Red Blood Count 2.62 x10^6/uL (3.50-5.40) Hemoglobin 7.1 g/dL (12.0-15.5) Hematocrit 22.8 % (36.0-47.0) Mean Corpuscular Volume 87 fL (79-100) Mean Corpuscular Hemoglobin 27 pg (25-35) Mean Corpuscular Hemoglobin Concent 31 g/dL (31-37) Red Cell Distribution Width 22.2 % (11.5-14.5) Platelet Count 8 x10^3/uL (140-400) Neutrophils (%) (Auto) 45 % (31-73) Lymphocytes (%) (Auto) 43 % (24-48) Monocytes (%) (Auto) 12 % (0-9) Eosinophils (%) (Auto) 0 % (0-3) Basophils (%) (Auto) 1 % (0-3) Neutrophils # (Auto) 0.6 x10^3/uL (1.8-7.7) Lymphocytes # (Auto) 0.6 x10^3/uL (1.0-4.8) Monocytes # (Auto) 0.2 x10^3/uL (0.0-1.1) Eosinophils # (Auto) 0.0 x10^3/uL (0.0-0.7) Basophils # (Auto) 0.0 x10^3/uL (0.0-0.2) Platelet Estimate Decreased (ADEQUATE) Hypochromasia Mod Poikilocytosis Slight Anisocytosis Mod Ovalocytes Few Sodium Level 142 mmol/L (136-145) 141 mmol/L (136-145) Potassium Level 4.0 mmol/L (3.5-5.1) 4.2 mmol/L (3.5-5.1) Chloride Level 114 mmol/L (98-107) 112 mmol/L (98-107) Carbon Dioxide Level 24 mmol/L (21-32) 23 mmol/L (21-32) Anion Gap 4 (6-14) 6 (6-14) Blood Urea Nitrogen 15 mg/dL (7-20) 15 mg/dL (7-20) Creatinine 1.6 mg/dL (0.6-1.0) 1.5 mg/dL (0.6-1.0) Estimated GFR (Cockcroft-Gault) 39.8 42.9 BUN/Creatinine Ratio 9 (6-20) Glucose Level 90 mg/dL (70-99) 79 mg/dL (70-99) Calcium Level 8.2 mg/dL (8.5-10.1) 8.7 mg/dL (8.5-10.1) Total Bilirubin 0.2 mg/dL (0.2-1.0) Aspartate Amino Transf (AST/SGOT) 12 U/L (15-37) Alanine Aminotransferase (ALT/SGPT) < 6 U/L (14-59) Alkaline Phosphatase 40 U/L (46-116) Total Protein 5.3 g/dL (6.4-8.2) Albumin 1.2 g/dL (3.4-5.0) Albumin/Globulin Ratio 0.3 (1.0-1.7) Laboratory Tests Test 07/23/20 15:55 07/24/20 04:55 White Blood Count 1.4 x10^3/uL (4.0-11.0) Red Blood Count 2.62 x10^6/uL (3.50-5.40) Hemoglobin 7.1 g/dL (12.0-15.5) Hematocrit 22.8 % (36.0-47.0) Mean Corpuscular Volume 87 fL (79-100) Mean Corpuscular Hemoglobin 27 pg (25-35) Mean Corpuscular Hemoglobin Concent 31 g/dL (31-37) Red Cell Distribution Width 22.2 % (11.5-14.5) Platelet Count 8 x10^3/uL (140-400) Neutrophils (%) (Auto) 45 % (31-73) Lymphocytes (%) (Auto) 43 % (24-48) Monocytes (%) (Auto) 12 % (0-9) Eosinophils (%) (Auto) 0 % (0-3) Basophils (%) (Auto) 1 % (0-3) Neutrophils # (Auto) 0.6 x10^3/uL (1.8-7.7) Lymphocytes # (Auto) 0.6 x10^3/uL (1.0-4.8) Monocytes # (Auto) 0.2 x10^3/uL (0.0-1.1) Eosinophils # (Auto) 0.0 x10^3/uL (0.0-0.7) Basophils # (Auto) 0.0 x10^3/uL (0.0-0.2) Platelet Estimate Decreased (ADEQUATE) Hypochromasia Mod Poikilocytosis Slight Anisocytosis Mod Ovalocytes Few Sodium Level 142 mmol/L (136-145) 141 mmol/L (136-145) Potassium Level 4.0 mmol/L (3.5-5.1) 4.2 mmol/L (3.5-5.1) Chloride Level 114 mmol/L (98-107) 112 mmol/L (98-107) Carbon Dioxide Level 24 mmol/L (21-32) 23 mmol/L (21-32) Anion Gap 4 (6-14) 6 (6-14) Blood Urea Nitrogen 15 mg/dL (7-20) 15 mg/dL (7-20) Creatinine 1.6 mg/dL (0.6-1.0) 1.5 mg/dL (0.6-1.0) Estimated GFR (Cockcroft-Gault) 39.8 42.9 BUN/Creatinine Ratio 9 (6-20) Glucose Level 90 mg/dL (70-99) 79 mg/dL (70-99) Calcium Level 8.2 mg/dL (8.5-10.1) 8.7 mg/dL (8.5-10.1) Total Bilirubin 0.2 mg/dL (0.2-1.0) Aspartate Amino Transf (AST/SGOT) 12 U/L (15-37) Alanine Aminotransferase (ALT/SGPT) < 6 U/L (14-59) Alkaline Phosphatase 40 U/L (46-116) Total Protein 5.3 g/dL (6.4-8.2) Albumin 1.2 g/dL (3.4-5.0) Albumin/Globulin Ratio 0.3 (1.0-1.7) Medications Active Scripts Medications Dose Route/Sig Max Daily Dose Days Date Category Dose Instructions Bisacodyl 10 Mg Supp.rect 10 Mg ME PRN DAILY PRN 30 06/25/20 Rx [place] Saline Nasal Gel (Sodium Chloride/Aloe Vera) 14.1 Gm Gel..gram. 1 [place] NS PRN DAILY PRN 30 06/25/20 Rx Fluticasone Propionate Nasal [place] (Fluticasone Propionate) 16 Gm [place].susp 2 [place] NS QHS 30 06/25/20 Rx Amlodipine Besylate 10 Mg Tablet 10 Mg PO DAILY 30 06/25/20 Rx Zofran (Ondansetron Hcl) 4 Mg Tablet 1 Tab PO Q6HRS 06/21/20 Reported Acetaminophen 325 Mg Tablet 650 Mg PO PRN Q6HRS PRN 06/02/20 Reported Combivent Respimat Inhal (Ipratropium/Albuterol Sulfate) 4 Gm Aer.w.adap 2 Inh IH QID 05/24/20 Reported Latuda (Lurasidone Hcl) 20 Mg Tablet 1 Tab PO DAILY 30 05/24/20 Reported Zoloft (Sertraline Hcl) 25 Mg Tablet 1 Tab PO DAILY 11/09/19 Reported Nystatin 15 Gm Powder 1 [place]en TP PRN PRN 7 11/09/19 Reported apply to affected area(s) Miralax (Polyethylene Glycol 3350) 17 Gm Powd.pack 1 Packet PO PRN Q24HRS PRN 2 11/09/19 Reported dissolve in water Miralax (Polyethylene Glycol 3350) 17 Gm Powd.pack 1 Packet PO QMWF 2 11/09/19 Reported dissolve in water Depakote Er (Divalproex Sodium) 500 Mg Tab.er.24h 3 Tab PO QHS 11/09/19 Reported Mylanta Maximum Strength Liq (Mag Hydrox/Aluminum Hyd/Simeth) 355 Ml Oral.susp 30 Ml PO PRN Q4HRS PRN 11/09/19 Reported Risperdal Consta (Risperidone Microspheres) 37.5 Mg/2 Ml Disp.syrin 50 Mg IM Q2WKS 01/03/17 Reported Topamax (Topiramate) 100 Mg Tablet 1 Tab PO BID 01/03/17 Reported Risperdal (Risperidone) 4 Mg Tablet 1 Tab PO BID 01/03/17 Reported Milk Of Magnesia (Magnesium Hydroxide) 400 Mg/5 Ml Oral.susp 30 Ml PO DAILY PRN 01/03/17 Reported Anti-Diarrhea (Loperamide Hcl) 2 Mg Tablet 2 Mg PO PRN 01/03/17 Reported Levothyroxine Sodium 75 Mcg Tablet 1 Tab PO DAILY 01/03/17 Reported Aspirin 81 Mg Tab.chew 1 Tab PO DAILY 01/03/17 Reported Impression . IMPRESSION: 1. Acute hypercapnic respiratory failure of unclear etiology. Reportedly, she is not a smoker. Could be contributed by transient ischemic attack symptoms/ encephalopathy.--improved with BIPAP Cannot exclude the possibility of seizure. CT head with no evidence of any ischemic or hemorrhagic stroke. Not on narcotics. She is currently on BiPAP and her blood gases have improved. 2. Leukopenia and thrombocytopenia. Needs further evaluation. Hematology consultation. 3. No significant tobacco history. 4. Right lower lobe interstitial faint infiltrate. Need to cover for aspiration pneumonia. Currently on Zosyn. 5. Mildly increased procalcitonin level. Currently being covered with antibiotics. Plan . RECOMMENDATIONS: Continue supplemental oxygen to keep sats above 92%, currently on room air BiPAP at at bedtime 20/6 with a rate of 24 to 40% Avoid any sedatives DC Zosyn as patient has completed a full clinical course. Follow Neurology recommendations Monitor BUN and creatinine, improved Follow Hematology recs for her thrombocytopenia as well as leukopenia PT/OT Discussed with RN Okay to discharge back to psych today from a pulmonary standpoint NILA CRANE MD Jul 24, 2020 10:36
[2020-07-24] MEDS: LABETALOL 20 MG/4 ML DISP.SYRIN. IVP PRN (12:24)
--- NOTE | 2020-07-24 14:45 | PDOC ---
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 Cardiomegaly with increased bilateral pulmonary opacities and small pleural effusions. // could reflect pulmonary edema vs multifocal pneumonia. BiPAP at nighttime and p.r.n. during the day. Avoid any sedatives. Continue empiric antibiotics. SEVERE, PROFOUND thrombocytopenia PLTS 15K 2-23 , hematology following Plan: Multiple previous admissions for syncope with psychiatric components over the past months, not requiring antibiotics. Will continue treatment of HCAP with Zosyn. Suspect vasovagal syncope. She has had 3 prior admissions over the past year for similar symptoms, most recently on 06/21/2020. She was recommended outpatient loop recorder. Consultations placed to neurology MRI brain pending, with further neurological work-up if abnormal MRI. She has history of chronic leukopenia, previously evaluated by Dr. Calderon with Hematology/Oncology. However she did not follow-up with outpatient work- up. Baseline creatinine 1.6 with baseline GFR around 39.8 consistent with CKD 3b IV normal saline Calcium carbonate 3 times daily with meals Resume home medications FEN - Cardiac diet PPX - Lovenox FULL CODE Dispo - inpatient for above heme consult nutrition consult History of Present Illness History of Present Illness Patient is a 60-year-old female who is well-known to our service who presents from [facility] by EMS as a code stroke. Per EMS report patient with walking when she suddenly fell onto padded chairs and became unresponsive. Upon EMS arrival she was nodding her head and moaning, with right-sided weakness. Symptoms resolved upon arrival to ED and she was without any focal neurologic deficits. Code stroke initially activated, but after discussion with Dr. Juarez, TPA was not given. Chest x-ray on admission showed faint patchy opacity at the right lung base, consistent with pneumonia. History was obtained through chart review secondary to patient's clinical condition. Will admit patient for further medical management. 07/19: Patient somnolent, difficult to arouse. Denies any questions. Afebrile. Discussed with Dr. Juarez, risks exceed benefit for MRI under general anesthesia. No additional neurological studies needed. Continue treatment for HCAP. Platelets 28, will hold Lovenox. Initiate SCDs. ABG obtained by RT showed elevated PCO2 and concern for CO2 narcosis. Will place on BiPAP and consult pulmonology. 07/20: ABG yesterday showed significant hypercapnia, discussed with RT. Place patient on BiPAP overnight with improvement in PCO2. Consultation was placed to pulmonology. Platelet count 20 today, will hold VTE prophylaxis. She has a noted history of pancytopenia. Procalcitonin mildly elevated. Continue antibiotic treatment for HCAP. She continues to improve on BiPAP she may discharge back to her care home sometime early next week to finish oral antibiotic treatment outpatient. 2-23 PLt'S remain critically low, hematology consulted Place patient on BiPAP overnight with improvement in PCO2. Consultation pulmonology., hematology , neurology Cannot exclude the possibility of seizure.neurology doubts this is likely CT head with no evidence of any ischemic or hemorrhagic stroke. Not on narcotics. 2-24 PLt'S remain critically low, hematology consulted BiPAP overnight with improvement in PCO2. Consultation pulmonology., hematology , neurology Cannot exclude the possibility of seizure.neurology doubts this is likely CT head with no evidence of any ischemic or hemorrhagic stroke. CBC PENDING TODAY 26 min pt exam, chart review, > 50% of time spent with exam, chart review, pt care coordination D/W RN Vitals Vitals Vital Signs Date Time Temp Pulse Resp B/P (MAP) Pulse Ox O2 Delivery O2 Flow Rate FiO2 07/24/20 12:24 87 186/79 07/24/20 12:17 100 Nasal Cannula 2.0 07/24/20 11:00 98.1 20 98.1 Physical Exam Physical Exam MITTS ON eating breakfast, inappropriate laughing. General: Somnolent, uncooperative. No acute distress lying in bed on bipap HEENT: PERRLA, EOMI Lungs: Decreased breath sounds bilaterally. Normal air movement Heart: RRR, no murmurs Cardiovascular: S1, S2 Abdomen: Normal bowel sounds, Soft, No tenderness Extremities: 2+ edema bilateral lower extremities. No clubbing, No cyanosis Skin: No rashes, No significant lesion Neuro: Somnolent normal tone, General: Other (Obtunded) Heart: Regular rate, Normal S1, Normal S2 Lungs: Clear, Other Abdomen: Normal bowel sounds, Soft, No tenderness Extremities: No clubbing, No cyanosis Skin: No rashes, No breakdown Labs LABS Laboratory Tests Test 07/23/20 15:55 07/24/20 04:55 White Blood Count 1.4 x10^3/uL (4.0-11.0) Red Blood Count 2.62 x10^6/uL (3.50-5.40) Hemoglobin 7.1 g/dL (12.0-15.5) Hematocrit 22.8 % (36.0-47.0) Mean Corpuscular Volume 87 fL (79-100) Mean Corpuscular Hemoglobin 27 pg (25-35) Mean Corpuscular Hemoglobin Concent 31 g/dL (31-37) Red Cell Distribution Width 22.2 % (11.5-14.5) Platelet Count 8 x10^3/uL (140-400) Neutrophils (%) (Auto) 45 % (31-73) Lymphocytes (%) (Auto) 43 % (24-48) Monocytes (%) (Auto) 12 % (0-9) Eosinophils (%) (Auto) 0 % (0-3) Basophils (%) (Auto) 1 % (0-3) Neutrophils # (Auto) 0.6 x10^3/uL (1.8-7.7) Lymphocytes # (Auto) 0.6 x10^3/uL (1.0-4.8) Monocytes # (Auto) 0.2 x10^3/uL (0.0-1.1) Eosinophils # (Auto) 0.0 x10^3/uL (0.0-0.7) Basophils # (Auto) 0.0 x10^3/uL (0.0-0.2) Platelet Estimate Decreased (ADEQUATE) Hypochromasia Mod Poikilocytosis Slight Anisocytosis Mod Ovalocytes Few Sodium Level 142 mmol/L (136-145) 141 mmol/L (136-145) Potassium Level 4.0 mmol/L (3.5-5.1) 4.2 mmol/L (3.5-5.1) Chloride Level 114 mmol/L (98-107) 112 mmol/L (98-107) Carbon Dioxide Level 24 mmol/L (21-32) 23 mmol/L (21-32) Anion Gap 4 (6-14) 6 (6-14) Blood Urea Nitrogen 15 mg/dL (7-20) 15 mg/dL (7-20) Creatinine 1.6 mg/dL (0.6-1.0) 1.5 mg/dL (0.6-1.0) Estimated GFR (Cockcroft-Gault) 39.8 42.9 BUN/Creatinine Ratio 9 (6-20) Glucose Level 90 mg/dL (70-99) 79 mg/dL (70-99) Calcium Level 8.2 mg/dL (8.5-10.1) 8.7 mg/dL (8.5-10.1) Total Bilirubin 0.2 mg/dL (0.2-1.0) Aspartate Amino Transf (AST/SGOT) 12 U/L (15-37) Alanine Aminotransferase (ALT/SGPT) < 6 U/L (14-59) Alkaline Phosphatase 40 U/L (46-116) Total Protein 5.3 g/dL (6.4-8.2) Albumin 1.2 g/dL (3.4-5.0) Albumin/Globulin Ratio 0.3 (1.0-1.7) Assessment and Plan Assessmemt and Plan Problems Medical Problems: (1) PNA (pneumonia) Status: Acute Comment Review of Relevant I have reviewed the following items bianca (where applicable) has been applied. Labs Laboratory Tests Test 07/22/20 16:10 07/23/20 15:55 07/24/20 04:55 Haptoglobin 97 mg/dL (33-346) Erythropoietin 70.2 mIU/mL (2.6-18.5) Lactate Dehydrogenase 325 U/L (81-234) White Blood Count 1.4 x10^3/uL (4.0-11.0) Red Blood Count 2.62 x10^6/uL (3.50-5.40) Hemoglobin 7.1 g/dL (12.0-15.5) Hematocrit 22.8 % (36.0-47.0) Mean Corpuscular Volume 87 fL (79-100) Mean Corpuscular Hemoglobin 27 pg (25-35) Mean Corpuscular Hemoglobin Concent 31 g/dL (31-37) Red Cell Distribution Width 22.2 % (11.5-14.5) Platelet Count 8 x10^3/uL (140-400) Neutrophils (%) (Auto) 45 % (31-73) Lymphocytes (%) (Auto) 43 % (24-48) Monocytes (%) (Auto) 12 % (0-9) Eosinophils (%) (Auto) 0 % (0-3) Basophils (%) (Auto) 1 % (0-3) Neutrophils # (Auto) 0.6 x10^3/uL (1.8-7.7) Lymphocytes # (Auto) 0.6 x10^3/uL (1.0-4.8) Monocytes # (Auto) 0.2 x10^3/uL (0.0-1.1) Eosinophils # (Auto) 0.0 x10^3/uL (0.0-0.7) Basophils # (Auto) 0.0 x10^3/uL (0.0-0.2) Platelet Estimate Decreased (ADEQUATE) Hypochromasia Mod Poikilocytosis Slight Anisocytosis Mod Ovalocytes Few Sodium Level 142 mmol/L (136-145) 141 mmol/L (136-145) Potassium Level 4.0 mmol/L (3.5-5.1) 4.2 mmol/L (3.5-5.1) Chloride Level 114 mmol/L (98-107) 112 mmol/L (98-107) Carbon Dioxide Level 24 mmol/L (21-32) 23 mmol/L (21-32) Anion Gap 4 (6-14) 6 (6-14) Blood Urea Nitrogen 15 mg/dL (7-20) 15 mg/dL (7-20) Creatinine 1.6 mg/dL (0.6-1.0) 1.5 mg/dL (0.6-1.0) Estimated GFR (Cockcroft-Gault) 39.8 42.9 BUN/Creatinine Ratio 9 (6-20) Glucose Level 90 mg/dL (70-99) 79 mg/dL (70-99) Calcium Level 8.2 mg/dL (8.5-10.1) 8.7 mg/dL (8.5-10.1) Total Bilirubin 0.2 mg/dL (0.2-1.0) Aspartate Amino Transf (AST/SGOT) 12 U/L (15-37) Alanine Aminotransferase (ALT/SGPT) < 6 U/L (14-59) Alkaline Phosphatase 40 U/L (46-116) Total Protein 5.3 g/dL (6.4-8.2) Albumin 1.2 g/dL (3.4-5.0) Albumin/Globulin Ratio 0.3 (1.0-1.7) Laboratory Tests Test 07/23/20 15:55 07/24/20 04:55 White Blood Count 1.4 x10^3/uL (4.0-11.0) Red Blood Count 2.62 x10^6/uL (3.50-5.40) Hemoglobin 7.1 g/dL (12.0-15.5) Hematocrit 22.8 % (36.0-47.0) Mean Corpuscular Volume 87 fL (79-100) Mean Corpuscular Hemoglobin 27 pg (25-35) Mean Corpuscular Hemoglobin Concent 31 g/dL (31-37) Red Cell Distribution Width 22.2 % (11.5-14.5) Platelet Count 8 x10^3/uL (140-400) Neutrophils (%) (Auto) 45 % (31-73) Lymphocytes (%) (Auto) 43 % (24-48) Monocytes (%) (Auto) 12 % (0-9) Eosinophils (%) (Auto) 0 % (0-3) Basophils (%) (Auto) 1 % (0-3) Neutrophils # (Auto) 0.6 x10^3/uL (1.8-7.7) Lymphocytes # (Auto) 0.6 x10^3/uL (1.0-4.8) Monocytes # (Auto) 0.2 x10^3/uL (0.0-1.1) Eosinophils # (Auto) 0.0 x10^3/uL (0.0-0.7) Basophils # (Auto) 0.0 x10^3/uL (0.0-0.2) Platelet Estimate Decreased (ADEQUATE) Hypochromasia Mod Poikilocytosis Slight Anisocytosis Mod Ovalocytes Few Sodium Level 142 mmol/L (136-145) 141 mmol/L (136-145) Potassium Level 4.0 mmol/L (3.5-5.1) 4.2 mmol/L (3.5-5.1) Chloride Level 114 mmol/L (98-107) 112 mmol/L (98-107) Carbon Dioxide Level 24 mmol/L (21-32) 23 mmol/L (21-32) Anion Gap 4 (6-14) 6 (6-14) Blood Urea Nitrogen 15 mg/dL (7-20) 15 mg/dL (7-20) Creatinine 1.6 mg/dL (0.6-1.0) 1.5 mg/dL (0.6-1.0) Estimated GFR (Cockcroft-Gault) 39.8 42.9 BUN/Creatinine Ratio 9 (6-20) Glucose Level 90 mg/dL (70-99) 79 mg/dL (70-99) Calcium Level 8.2 mg/dL (8.5-10.1) 8.7 mg/dL (8.5-10.1) Total Bilirubin 0.2 mg/dL (0.2-1.0) Aspartate Amino Transf (AST/SGOT) 12 U/L (15-37) Alanine Aminotransferase (ALT/SGPT) < 6 U/L (14-59) Alkaline Phosphatase 40 U/L (46-116) Total Protein 5.3 g/dL (6.4-8.2) Albumin 1.2 g/dL (3.4-5.0) Albumin/Globulin Ratio 0.3 (1.0-1.7) Medications Current Medications Iohexol (Omnipaque 300 Mg/ml) 75 ml 1X ONCE IV Last administered on 07/18/20at 10:15; Start 07/18/20 at 10:15; Stop 07/18/20 at 10:16; Status DC Ceftriaxone Sodium (Rocephin) 1 gm 1X ONCE IVP Last administered on 07/18/20at 17:06; Start 07/18/20 at 12:00; Stop 07/18/20 at 12:01; Status DC Calcium Carbonate/ Glycine (Oscal) 500 mg TIDAFTMEAL PO Last administered on 07/24/20at 13:07; Start 07/18/20 at 18:00 Amlodipine Besylate (Norvasc) 10 mg DAILY PO Last administered on 07/24/20at 08:30; Start 07/19/20 at 09:00 Aspirin (Aspirin Chewable) 81 mg DAILY PO Last administered on 07/24/20at 08:30; Start 07/19/20 at 09:00 Bisacodyl (Dulcolax Supp) 10 mg PRN DAILY PRN MD CONSTIPATION; Start 07/18/20 at 15:45 Divalproex Sodium (Depakote Er) 1,500 mg QHS PO Last administered on 07/23/20at 21:34; Start 07/18/20 at 21:00 Fluticasone Propionate (Flonase) 2 spray QHS NS Last administered on 07/23/20at 21:00; Start 07/18/20 at 21:00 Levothyroxine Sodium (Synthroid) 75 mcg DAILY06 PO Last administered on 07/24/20at 06:05; Start 07/19/20 at 06:00 Polyethylene Glycol (miraLAX PACKET) 17 gm PRN Q24HRS PRN PO CONSTIPATION; Start 07/18/20 at 15:45 Sertraline HCl (Zoloft) 25 mg DAILY PO Last administered on 07/24/20at 08:30; Start 07/19/20 at 09:00 Topiramate (Topamax) 100 mg BID PO Last administered on 07/24/20 08:30; Start 07/18/20 at 21:00 Albuterol/ Ipratropium (Duoneb) 3 ml RTQID NEB Last administered on 07/24/20at 12:16; Start 07/18/20 at 16:00 Piperacillin Sod/ Tazobactam Sod (Zosyn Per Pharmacy) 1 each PRN DAILY PRN MC SEE COMMENTS; Start 07/18/20 at 15:45; Stop 07/24/20 at 10:36; Status DC Sodium Chloride 1,000 ml @ 45 mls/hr [id number] IV Last administered on 07/23/20at 12:19; Start 07/18/20 at 17:00 Ondansetron HCl (Zofran) 4 mg PRN Q6HRS PRN IVP NAUSEA/VOMITING; Start 07/18/20 at 16:00 Al Hydroxide/Mg Hydroxide (Mylanta Plus Xs) 30 ml PRN Q3HRS PRN PO HEARTBURN / GAS; Start 07/18/20 at 16:00 Calcium Carbonate/ Glycine (Tums) 500 mg PRN Q3HRS PRN PO UPSET STOMACH; Start 07/18/20 at 16:00 Zolpidem Tartrate (Ambien) 5 mg PRN QHS PRN PO INSOMNIA, MAY REPEAT IN 1HR Last administered on 07/22/20at 21:53; Start 07/18/20 at 16:00 Acetaminophen/ Hydrocodone Bitart (Lortab 5/325) 1 tab PRN Q4HRS PRN PO MILD PAIN 1-3; Start 07/18/20 at 16:00 Acetaminophen (Tylenol) 650 mg PRN Q6HRS PRN PO Headaches, Temp > 101.5F; Start 07/18/20 at 16:00 Enoxaparin Sodium (Lovenox 40mg Syringe) 40 mg Q24H SQ Last administered on 07/18/20at 20:07; Start 07/18/20 at 21:00; Stop 07/19/20 at 15:38; Status DC Piperacillin Sod/ Tazobactam Sod 3.375 gm/Sodium Chloride 50 ml @ 100 mls/hr Q6HRS IV Last administered on 07/24/20at 06:05; Start 07/18/20 at 18:00; Stop 07/24/20 at 10:36; Status DC Labetalol HCl (Normodyne Iv Push) 20 mg PRN Q2HR PRN IVP HYPERTENSION Last administered on 07/24/20at 12:24; Start 07/20/20 at 03:30 Nystatin (Nystop) 1 carmen BID TP Last administered on 07/24/20at 08:36; Start 07/22/20 at 00:00 Lisinopril (Prinivil) 2.5 mg BID PO Last administered on 07/24/20at 08:31; Start 07/23/20 at 12:00 Active Scripts Active Bisacodyl 10 Mg Supp.rect 10 Mg MD PRN DAILY PRN 30 Days [place] Saline Nasal Gel (Sodium Chloride/Aloe Vera) 14.1 Gm Gel..gram. 1 [place] NS PRN DAILY PRN 30 Days Fluticasone Propionate Nasal [place] (Fluticasone Propionate) 16 Gm [place].susp 2 [place] NS QHS 30 Days Amlodipine Besylate 10 Mg Tablet 10 Mg PO DAILY 30 Days Reported Zofran (Ondansetron Hcl) 4 Mg Tablet 1 Tab PO Q6HRS Acetaminophen 325 Mg Tablet 650 Mg PO PRN Q6HRS PRN Combivent Respimat Inhal (Ipratropium/Albuterol Sulfate) 4 Gm Aer.w.adap 2 Inh IH QID Latuda (Lurasidone Hcl) 20 Mg Tablet 1 Tab PO DAILY 30 Days Zoloft (Sertraline Hcl) 25 Mg Tablet 1 Tab PO DAILY Nystatin 15 Gm Powder 1 [place] TP PRN PRN 7 Days apply to affected area(s) Miralax (Polyethylene Glycol 3350) 17 Gm Powd.pack 1 Packet PO PRN Q24HRS PRN 2 Days dissolve in water Miralax (Polyethylene Glycol 3350) 17 Gm Powd.pack 1 Packet PO QMWF 2 Days dissolve in water Depakote Er (Divalproex Sodium) 500 Mg Tab.er.24h 3 Tab PO QHS Mylanta Maximum Strength Liq (Mag Hydrox/Aluminum Hyd/Simeth) 355 Ml Oral.susp 30 Ml PO PRN Q4HRS PRN Risperdal Consta (Risperidone Microspheres) 37.5 Mg/2 Ml Disp.syrin 50 Mg IM Q2WKS Topamax (Topiramate) 100 Mg Tablet 1 Tab PO BID Risperdal (Risperidone) 4 Mg Tablet 1 Tab PO BID Milk Of Magnesia (Magnesium Hydroxide) 400 Mg/5 Ml Oral.susp 30 Ml PO DAILY PRN Anti-Diarrhea (Loperamide Hcl) 2 Mg Tablet 2 Mg PO PRN Levothyroxine Sodium 75 Mcg Tablet 1 Tab PO DAILY Aspirin 81 Mg Tab.chew 1 Tab PO DAILY Vitals/I & O Vital Sign - Last 24 Hours 07/23/20 07/23/20 07/23/20 07/23/20 15:00 16:15 16:27 17:33 Temp 97.6 97.6 Pulse 81 84 80 Resp 16 B/P (MAP) 185/84 (117) 197/95 160/78 (105) Pulse Ox 100 97 O2 Delivery Nasal Cannula Nasal Cannula O2 Flow Rate 2.0 2.0 07/23/20 07/23/20 07/23/20 07/23/20 19:21 19:54 20:00 21:09 Temp 98.2 98.2 98.2 98.2 Pulse 74 75 Resp 20 28 B/P (MAP) 145/90 (108) 145/90 Pulse Ox 98 100 O2 Delivery Nasal Cannula Nasal Cannula Bi-pap O2 Flow Rate 2.0 2.0 07/23/20 07/23/20 07/23/20 07/23/20 21:34 21:37 22:38 22:57 Temp 97.5 97.9 97.5 97.9 Pulse 75 81 77 Resp 28 24 B/P (MAP) 145/90 140/80 142/88 (106) Pulse Ox 100 94 O2 Delivery BiPAP/CPAP BiPAP/CPAP 07/24/20 07/24/20 07/24/20 07/24/20 00:08 00:57 03:16 04:10 Temp 98.0 96.9 98.0 96.9 Pulse 80 86 Resp B/P (MAP) 174/81 181/94 (123) Pulse Ox 97 99 98 O2 Delivery BiPAP/CPAP BiPAP/CPAP BiPAP/CPAP 07/24/20 07/24/20 07/24/20 07/24/20 07:00 08:00 08:30 08:31 Temp 98.4 98.4 Pulse 86 86 86 Resp 20 B/P (MAP) 121/90 (100) 121/90 121/90 Pulse Ox 97 O2 Delivery Nasal Cannula Nasal Cannula O2 Flow Rate 3.0 3.0 07/24/20 07/24/20 07/24/20 07/24/20 09:07 11:00 12:17 12:24 Temp 98.1 98.1 Pulse 72 87 Resp 20 B/P (MAP) 186/79 (114) 186/79 Pulse Ox 96 100 100 O2 Delivery Nasal Cannula Nasal Cannula Nasal Cannula O2 Flow Rate 3.0 3.0 2.0 Intake and Output 07/23/20 07/23/20 07/24/20 15:00 23:00 07:00 Intake Total 500 ml 290 ml 940 ml Balance 500 ml 290 ml 940 ml Justicifation of Admission Dx: Justifications for Admission: Justification of Admission Dx: Yes Altered Mental Status: Altered Mental Status ROGER ALVARADO MD Jul 24, 2020 14:45
--- NOTE | 2020-07-24 14:45 | NUR ---
SS following up with discharge planning. SS reviewed pt chart and discussed with pt RN. Pt is currently requiring oxygen at two liters nasal canula. COVID19 negative. Pt platelet count has been low. Pt received platelets. Pt is able to return to [facility], ; fax [phone], when medically stable for discharge. SS will continue to follow for discharge planning.
[2020-07-24 14:55] LABS: BASO % 2 % (0-3); EOS % 3 % (0-3); HEMOGLOBIN 7.3 g/dL (12.0-15.5); LYMPH # 0.8 x10^3/uL (1.0-4.8); LYMPH % 43 % (24-48); MEAN CORPUSCULAR HEMOGLOBIN 27 pg (25-35); MEAN CORPUSCULAR HGB CONC 30 g/dL (31-37); MEAN CORPUSCULAR VOLUME 88 fL (79-100); MONO # 0.2 x10^3/uL (0.0-1.1); MONO % 13 % (0-9); NEUT # 0.7 x10^3/uL (1.8-7.7); NEUT % 39 % (31-73); PLATELET COUNT 67 x10^3/uL (140-400); RED BLOOD COUNT 2.71 x10^6/uL (3.50-5.40); RED CELL DISTRIBUTION WIDTH 22.5 % (11.5-14.5)
[2020-07-24 15:13] LABS: WHITE BLOOD COUNT 1.8 x10^3/uL (4.0-11.0)
[2020-07-24 16:11] LABS: % BANDS 3 % (0-9); % LYMPHS 39 % (24-48); % METAS 1 % (0-0); % MONOS 13 % (0-10); % MYELOS 1 % (0-0); % SEGS 43 % (35-66); NUCLEATED RBC 1
[2020-07-24 16:15] LABS: PLT ESTIMATE DECREASED (ADEQUATE)
[2020-07-24 16:17] LABS: ANISOCYTOSIS MOD; POLYCHROMASIA SLIGHT
[2020-07-24 16:18] LABS: HYPOCHROMIA SLIGHT
[2020-07-24] MEDS: IV NORMAL SALINE 1000ML BAG 1,000 ML IV SCH ×2 (16:50→18:13)
[2020-07-24] MEDS: FLUTICASONE 50MCG/NASAL SPRAY 16GM BOTTLE. NS SCH (21:00)
[2020-07-24 21:24] LABS: ANA INTERP Negative (.)
[2020-07-24] MEDS: DIVALPROEX EXTENDED RELEASE 500 MG TAB.ER.24H. PO SCH (21:33)
[2020-07-25] VITALS (12 sets, daily range): BP systolic 148–198; BP diastolic 70–92
[2020-07-25] MEDS: LEVOTHYROXINE 75 MCG TABLET PO SCH (05:45)
[2020-07-25] MEDS: IPRATRPIUM/ALBUTEROL 0.5/2.5MG 3 ML NEBU. NEB SCH ×4 (07:46→19:23)
[2020-07-25] MEDS: ASPIRIN CHEWABLE 81 MG TABLET. PO SCH (08:49)
[2020-07-25] MEDS: SERTRALINE 25 MG TABLET. PO SCH (08:50)
[2020-07-25] MEDS: LISINOPRIL 5 MG TABLET. PO SCH ×2 (08:50→21:52)
[2020-07-25] MEDS: TOPIRAMATE 100 MG TABLET. PO SCH ×2 (08:50→21:50)
[2020-07-25] MEDS: CALCIUM CARBONATE 500 MG TABLET PO SCH ×3 (08:50→17:04)
--- NOTE | 2020-07-25 08:54 | PDOC ---
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 Cardiomegaly with increased bilateral pulmonary opacities and small pleural effusions. // could reflect pulmonary edema vs multifocal pneumonia. BiPAP at nighttime and p.r.n. during the day. Avoid any sedatives. Continue empiric antibiotics. SEVERE, PROFOUND thrombocytopenia PLTS 15K 2-23 , hematology following ,, thrombocytopenia is most likely reactive secondary to acute illness given normal peripheral smear and haptoglobin Plan: Multiple previous admissions for syncope with psychiatric components over the past months, not requiring antibiotics. Will continue treatment of HCAP with Zosyn. Suspect vasovagal syncope. She has had 3 prior admissions over the past year for similar symptoms, most recently on 06/21/2020. She was recommended outpatient loop recorder. Consultations placed to neurology MRI brain pending, with further neurological work-up if abnormal MRI. She has history of chronic leukopenia, previously evaluated by Dr. Calderon with Hematology/Oncology. However she did not follow-up with outpatient work- up. Baseline creatinine 1.6 with baseline GFR around 39.8 consistent with CKD 3b IV normal saline Calcium carbonate 3 times daily with meals Resume home medications FEN - Cardiac diet PPX - Lovenox FULL CODE Dispo - inpatient for above heme consult nutrition consult cxr 2- d/w rn History of Present Illness History of Present Illness Patient is a 60-year-old female who is well-known to our service who presents from [facility] by EMS as a code stroke. Per EMS report patient with walking when she suddenly fell onto padded chairs and became unresponsive. Upon EMS arrival she was nodding her head and moaning, with right-sided weakness. Symptoms resolved upon arrival to ED and she was without any focal neurologic deficits. Code stroke initially activated, but after discussion with Dr. Juarez, TPA was not given. Chest x-ray on admission showed faint patchy opacity at the right lung base, consistent with pneumonia. History was obtained through chart review secondary to patient's clinical condition. Will admit patient for further medical management. 07/19: Patient somnolent, difficult to arouse. Denies any questions. Afebrile. Discussed with Dr. Juarez, risks exceed benefit for MRI under general anesthesia. No additional neurological studies needed. Continue treatment for HCAP. Platelets 28, will hold Lovenox. Initiate SCDs. ABG obtained by RT showed elevated PCO2 and concern for CO2 narcosis. Will place on BiPAP and consult pulmonology. 07/20: ABG yesterday showed significant hypercapnia, discussed with RT. Place patient on BiPAP overnight with improvement in PCO2. Consultation was placed to pulmonology. Platelet count 20 today, will hold VTE prophylaxis. She has a noted history of pancytopenia. Procalcitonin mildly elevated. Continue antibiotic treatment for HCAP. She continues to improve on BiPAP she may discharge back to her assisted sometime early next week to finish oral antibiotic treatment outpatient. 2- PLt'S remain critically low, hematology consulted Place patient on BiPAP overnight with improvement in PCO2. Consultation pulmonology., hematology , neurology Cannot exclude the possibility of seizure.neurology doubts this is likely CT head with no evidence of any ischemic or hemorrhagic stroke. Not on narcotics. 2- PLt'S remain critically low, hematology consulted BiPAP overnight with improvement in PCO2. Consultation pulmonology., hematology , neurology Cannot exclude the possibility of seizure.neurology doubts this is likely CT head with no evidence of any ischemic or hemorrhagic stroke. CBC PENDING TODAY 26 min pt exam, chart review, > 50% of time spent with exam, chart review, pt care coordination D/W RN 2- PLt'S remain critically low, hematology consulted BiPAP overnight with improvement in PCO2. Consultation pulmonology., hematology , neurology Cannot exclude the possibility of seizure.neurology doubts this is likely CT head with no evidence of any ischemic or hemorrhagic stroke. CBC PENDING TODAY 28 min pt exam, chart review, > 50% of time spent with exam, chart review, pt care coordination Vitals Vitals Vital Signs Date Time Temp Pulse Resp B/P (MAP) Pulse Ox O2 Delivery O2 Flow Rate FiO2 07/25/20 07:47 99 Nasal Cannula 3.0 07/25/20 07:00 98.5 85 20 161/70 (100) 98.5 Physical Exam Physical Exam MITTS ON eating breakfast, inappropriate laughing. General: Somnolent, uncooperative. No acute distress lying in bed on bipap HEENT: PERRLA, EOMI Lungs: Decreased breath sounds bilaterally. Normal air movement Heart: RRR, no murmurs Cardiovascular: S1, S2 Abdomen: Normal bowel sounds, Soft, No tenderness Extremities: 2+ edema bilateral lower extremities. No clubbing, No cyanosis Skin: No rashes, No significant lesion Neuro: Somnolent normal tone, General: Other (Obtunded) Heart: Regular rate, Normal S1, Normal S2 Lungs: Clear, Other Abdomen: Normal bowel sounds, Soft, No tenderness Extremities: No clubbing, No cyanosis Skin: No rashes, No breakdown Labs LABS EXAM: XR CHEST 1V 07/21/2020 12:56 PM CLINICAL INDICATION: Pneumonia COMPARISON: Chest radiograph 07/18/2020 TECHNIQUE: AP upright view of the chest FINDINGS: The heart is enlarged. There are increased bilateral pulmonary opacities, greatest in the right lung base. Probable small layering pleural effusions. No pneumothorax. No acute osseous abnormality. IMPRESSION: Cardiomegaly with increased bilateral pulmonary opacities and small pleural effusions. Findings could reflect pulmonary edema or multifocal pneumonia. Electronically signed by: Minnie Cm MD (07/21/2020 4:14 PM) [id number] DICTATED and SIGNED BY: MINNIE CM MD DATE: 07/21/20 [id number] Assessment and Plan Assessmemt and Plan Problems Medical Problems: (1) PNA (pneumonia) Status: Acute Comment Review of Relevant I have reviewed the following items bianca (where applicable) has been applied. Labs Laboratory Tests Test 07/23/20 15:55 07/24/20 04:55 White Blood Count 1.4 x10^3/uL (4.0-11.0) 1.8 x10^3/uL (4.0-11.0) Red Blood Count 2.62 x10^6/uL (3.50-5.40) 2.71 x10^6/uL (3.50-5.40) Hemoglobin 7.1 g/dL (12.0-15.5) 7.3 g/dL (12.0-15.5) Hematocrit 22.8 % (36.0-47.0) 24.0 % (36.0-47.0) Mean Corpuscular Volume 87 fL (79-100) 88 fL (79-100) Mean Corpuscular Hemoglobin 27 pg (25-35) 27 pg (25-35) Mean Corpuscular Hemoglobin Concent 31 g/dL (31-37) 30 g/dL (31-37) Red Cell Distribution Width 22.2 % (11.5-14.5) 22.5 % (11.5-14.5) Platelet Count 8 x10^3/uL (140-400) 67 x10^3/uL (140-400) Neutrophils (%) (Auto) 45 % (31-73) 39 % (31-73) Lymphocytes (%) (Auto) 43 % (24-48) 43 % (24-48) Monocytes (%) (Auto) 12 % (0-9) 13 % (0-9) Eosinophils (%) (Auto) 0 % (0-3) 3 % (0-3) Basophils (%) (Auto) 1 % (0-3) 2 % (0-3) Neutrophils # (Auto) 0.6 x10^3/uL (1.8-7.7) 0.7 x10^3/uL (1.8-7.7) Lymphocytes # (Auto) 0.6 x10^3/uL (1.0-4.8) 0.8 x10^3/uL (1.0-4.8) Monocytes # (Auto) 0.2 x10^3/uL (0.0-1.1) 0.2 x10^3/uL (0.0-1.1) Eosinophils # (Auto) 0.0 x10^3/uL (0.0-0.7) 0.0 x10^3/uL (0.0-0.7) Basophils # (Auto) 0.0 x10^3/uL (0.0-0.2) 0.0 x10^3/uL (0.0-0.2) Platelet Estimate Decreased (ADEQUATE) Decreased (ADEQUATE) Hypochromasia Mod Slight Poikilocytosis Slight Anisocytosis Mod Mod Ovalocytes Few Sodium Level 142 mmol/L (136-145) 141 mmol/L (136-145) Potassium Level 4.0 mmol/L (3.5-5.1) 4.2 mmol/L (3.5-5.1) Chloride Level 114 mmol/L (98-107) 112 mmol/L (98-107) Carbon Dioxide Level 24 mmol/L (21-32) 23 mmol/L (21-32) Anion Gap 4 (6-14) 6 (6-14) Blood Urea Nitrogen 15 mg/dL (7-20) 15 mg/dL (7-20) Creatinine 1.6 mg/dL (0.6-1.0) 1.5 mg/dL (0.6-1.0) Estimated GFR (Cockcroft-Gault) 39.8 42.9 BUN/Creatinine Ratio 9 (6-20) Glucose Level 90 mg/dL (70-99) 79 mg/dL (70-99) Calcium Level 8.2 mg/dL (8.5-10.1) 8.7 mg/dL (8.5-10.1) Total Bilirubin 0.2 mg/dL (0.2-1.0) Aspartate Amino Transf (AST/SGOT) 12 U/L (15-37) Alanine Aminotransferase (ALT/SGPT) < 6 U/L (14-59) Alkaline Phosphatase 40 U/L (46-116) Total Protein 5.3 g/dL (6.4-8.2) Albumin 1.2 g/dL (3.4-5.0) Albumin/Globulin Ratio 0.3 (1.0-1.7) Segmented Neutrophils % 43 % (35-66) Band Neutrophils % 3 % (0-9) Lymphocytes % 39 % (24-48) Monocytes % 13 % (0-10) Metamyelocytes % 1 % (0-0) Myelocytes % 1 % (0-0) Nucleated Red Blood Cells 1 Polychromasia Slight Medications Current Medications Iohexol (Omnipaque 300 Mg/ml) 75 ml 1X ONCE IV Last administered on 07/18/20at 10:15; Start 07/18/20 at 10:15; Stop 07/18/20 at 10:16; Status DC Ceftriaxone Sodium (Rocephin) 1 gm 1X ONCE IVP Last administered on 07/18/20at 17:06; Start 07/18/20 at 12:00; Stop 07/18/20 at 12:01; Status DC Calcium Carbonate/ Glycine (Oscal) 500 mg TIDAFTMEAL PO Last administered on 07/24/20at 18:12; Start 07/18/20 at 18:00 Amlodipine Besylate (Norvasc) 10 mg DAILY PO Last administered on 07/24/20at 08:30; Start 07/19/20 at 09:00 Aspirin (Aspirin Chewable) 81 mg DAILY PO Last administered on 07/24/20at 08:30; Start 07/19/20 at 09:00 Bisacodyl (Dulcolax Supp) 10 mg PRN DAILY PRN [place] CONSTIPATION; Start 07/18/20 at 15:45 Divalproex Sodium (Depakote Er) 1,500 mg QHS PO Last administered on 07/24/20at 21:33; Start 07/18/20 at 21:00 Fluticasone Propionate (Flonase) 2 spray QHS NS Last administered on 07/24/20at 21:00; Start 07/18/20 at 21:00 Levothyroxine Sodium (Synthroid) 75 mcg DAILY06 PO Last administered on 07/25/20at 05:45; Start 07/19/20 at 06:00 Polyethylene Glycol (miraLAX PACKET) 17 gm PRN Q24HRS PRN PO CONSTIPATION; Start 07/18/20 at 15:45 Sertraline HCl (Zoloft) 25 mg DAILY PO Last administered on 07/24/20at 08:30; Start 07/19/20 at 09:00 Topiramate (Topamax) 100 mg BID PO Last administered on 07/24/20at 21:34; Start 07/18/20 at 21:00 Albuterol/ Ipratropium (Duoneb) 3 ml RTQID NEB Last administered on 07/25/20at 07:46; Start 07/18/20 at 16:00 Piperacillin Sod/ Tazobactam Sod (Zosyn Per Pharmacy) 1 each PRN DAILY PRN MC SEE COMMENTS; Start 07/18/20 at 15:45; Stop 07/24/20 at 10:36; Status DC Sodium Chloride 1,000 ml @ 45 mls/hr [id number] IV Last administered on 07/24/20at 18:13; Start 07/18/20 at 17:00 Ondansetron HCl (Zofran) 4 mg PRN Q6HRS PRN IVP NAUSEA/VOMITING; Start 07/18/20 at 16:00 Al Hydroxide/Mg Hydroxide (Mylanta Plus Xs) 30 ml PRN Q3HRS PRN PO HEARTBURN / GAS; Start 07/18/20 at 16:00 Calcium Carbonate/ Glycine (Tums) 500 mg PRN Q3HRS PRN PO UPSET STOMACH; Start 07/18/20 at 16:00 Zolpidem Tartrate (Ambien) 5 mg PRN QHS PRN PO INSOMNIA, MAY REPEAT IN 1HR Last administered on 07/22/20at 21:53; Start 07/18/20 at 16:00 Acetaminophen/ Hydrocodone Bitart (Lortab 5/325) 1 tab PRN Q4HRS PRN PO MILD PAIN 1-3; Start 07/18/20 at 16:00 Acetaminophen (Tylenol) 650 mg PRN Q6HRS PRN PO Headaches, Temp > 101.5F; Start 07/18/20 at 16:00 Enoxaparin Sodium (Lovenox 40mg Syringe) 40 mg Q24H SQ Last administered on 07/18/20at 20:07; Start 07/18/20 at 21:00; Stop 07/19/20 at 15:38; Status DC Piperacillin Sod/ Tazobactam Sod 3.375 gm/Sodium Chloride 50 ml @ 100 mls/hr Q6HRS IV Last administered on 07/24/20at 06:05; Start 07/18/20 at 18:00; Stop 07/24/20 at 10:36; Status DC Labetalol HCl (Normodyne Iv Push) 20 mg PRN Q2HR PRN IVP HYPERTENSION Last administered on 07/24/20at 12:24; Start 07/20/20 at 03:30 Nystatin (Nystop) 1 carmen BID TP Last administered on 07/24/20at 21:34; Start 07/22/20 at 00:00 Lisinopril (Prinivil) 2.5 mg BID PO Last administered on 07/24/20at 21:34; Star t 07/23/20 at 12:00 Active Scripts Active Bisacodyl 10 Mg Supp.rect 10 Mg [place] PRN DAILY PRN 30 Days [place] Saline Nasal Gel (Sodium Chloride/Aloe Vera) 14.1 Gm Gel..gram. 1 Carmen NS PRN DAILY PRN 30 Days Fluticasone Propionate Nasal Sullivan (Fluticasone Propionate) 16 Gm Sullivan.susp 2 Sullivan NS QHS 30 Days Amlodipine Besylate 10 Mg Tablet 10 Mg PO DAILY 30 Days Reported Zofran (Ondansetron Hcl) 4 Mg Tablet 1 Tab PO Q6HRS Acetaminophen 325 Mg Tablet 650 Mg PO PRN Q6HRS PRN Combivent Respimat Inhal (Ipratropium/Albuterol Sulfate) 4 Gm Aer.w.adap 2 Inh IH QID Latuda (Lurasidone Hcl) 20 Mg Tablet 1 Tab PO DAILY 30 Days Zoloft (Sertraline Hcl) 25 Mg Tablet 1 Tab PO DAILY Nystatin 15 Gm Powder 1 Carmen TP PRN PRN 7 Days apply to affected area(s) Miralax (Polyethylene Glycol 3350) 17 Gm Powd.pack 1 Packet PO PRN Q24HRS PRN 2 Days dissolve in water Miralax (Polyethylene Glycol 3350) 17 Gm Powd.pack 1 Packet PO QMWF 2 Days dissolve in water Depakote Er (Divalproex Sodium) 500 Mg Tab.er.24h 3 Tab PO QHS Mylanta Maximum Strength Liq (Mag Hydrox/Aluminum Hyd/Simeth) 355 Ml Oral.susp 30 Ml PO PRN Q4HRS PRN Risperdal Consta (Risperidone Microspheres) 37.5 Mg/2 Ml Disp.syrin 50 Mg IM Q2WKS Topamax (Topiramate) 100 Mg Tablet 1 Tab PO BID Risperdal (Risperidone) 4 Mg Tablet 1 Tab PO BID Milk Of Magnesia (Magnesium Hydroxide) 400 Mg/5 Ml Oral.susp 30 Ml PO DAILY PRN Anti-Diarrhea (Loperamide Hcl) 2 Mg Tablet 2 Mg PO PRN Levothyroxine Sodium 75 Mcg Tablet 1 Tab PO DAILY Aspirin 81 Mg Tab.chew 1 Tab PO DAILY Vitals/I & O Vital Sign - Last 24 Hours 07/24/20 07/24/20 07/24/20 07/24/20 09:07 11:00 12:17 12:24 Temp 98.1 98.1 Pulse 72 87 Resp 20 B/P (MAP) 186/79 (114) 186/79 Pulse Ox 96 100 100 O2 Delivery Nasal Cannula Nasal Cannula Nasal Cannula O2 Flow Rate 3.0 3.0 2.0 07/24/20 07/24/20 07/24/20 07/24/20 15:00 16:01 19:00 20:00 Temp 98.2 98.9 98.2 98.9 Pulse 69 88 Resp 20 18 B/P (MAP) 169/75 (106) 188/95 (126) Pulse Ox 93 92 100 O2 Delivery Nasal Cannula Nasal Cannula Nasal Cannula Nasal Cannula O2 Flow Rate 3.0 2.0 2.0 3.0 07/24/20 07/24/20 07/24/20 07/24/20 20:23 20:30 21:34 21:40 Pulse 88 80 B/P (MAP) 188/95 105/70 (82) Pulse Ox 99 98 O2 Delivery Nasal Cannula BiPAP/CPAP O2 Flow Rate 3.0 07/24/20 07/25/20 07/25/20 07/25/20 22:31 01:00 02:48 07:00 Temp 98.7 98.5 98.5 98.7 98.5 98.5 Pulse 88 77 85 Resp 18 18 20 B/P (MAP) 105/70 (82) 174/81 (112) 161/70 (100) Pulse Ox 100 99 96 96 O2 Delivery Nasal Cannula BiPAP/CPAP Nasal Cannula Nasal Cannula O2 Flow Rate 2.0 2.0 2.0 07/25/20 07:47 Pulse Ox 99 O2 Delivery Nasal Cannula O2 Flow Rate 3.0 Intake and Output 07/24/20 07/24/20 07/25/20 15:00 23:00 07:00 Intake Total 450 ml 540 ml 360 ml Balance 450 ml 540 ml 360 ml Justicifation of Admission Dx: Justifications for Admission: Justification of Admission Dx: Yes Altered Mental Status: Altered Mental Status ROGER ALVARADO MD Jul 25, 2020 08:54
[2020-07-25] MEDS: NYSTATIN TOPICAL POWDER 15GM BOTTLE. TP SCH ×2 (08:55→21:52)
--- NOTE | 2020-07-25 08:57 | PDOC ---
PROGRESS NOTES Date of Service DATE: 07/25/20 TIME: 08:55 Assessment Problems Medical Problems: (1) PNA (pneumonia) Status: Acute Vasovagal syncope Possible epilepsy, anticonvulsants also serve for psychiatric issues, I do not think she has seizures Drug induced extrapyramidal syndrome History of multiple psychiatric illnesses Strabismus Unable to tolerate MRI, canceled it Pneumonia, hypercapnia, pancytopenia with severe thrombocytopenia, CKD 4 Plan Further outpatient cardiac testing such as long-term monitoring No additional neurological studies needed Treatment of pneumonia and hematologic issues Subjective None Objective Vital Signs Date Time Temp Pulse Resp B/P (MAP) Pulse Ox O2 Delivery O2 Flow Rate FiO2 07/25/20 07:47 99 Nasal Cannula 3.0 07/25/20 07:00 98.5 85 20 161/70 (100) 98.5 Intake and Output 07/25/20 07:00 Intake Total 1350 ml Balance 1350 ml Intake Oral 1350 ml # Voids 7 # Bowel Movements 2 PHYSICAL EXAM Alert. Mittens off, eating breakfast, inappropriate laughing. When I ask her location, she says "I am in a negative state." PERRL. EOMI, bilateral strabismus. CN: no focal findings. Muscle tone: normal. Muscle strength: 4/5 DTR: 2+ Plantar reflex: Flexor Gait: not examined in bed. Sensory exam: no abnormal findings. No cerebellar signs elicited, coarse resting tremor. Review of Relevant I have reviewed the following items bianca (where applicable) has been applied. Labs Laboratory Tests Test 07/23/20 15:55 07/24/20 04:55 White Blood Count 1.4 x10^3/uL (4.0-11.0) 1.8 x10^3/uL (4.0-11.0) Red Blood Count 2.62 x10^6/uL (3.50-5.40) 2.71 x10^6/uL (3.50-5.40) Hemoglobin 7.1 g/dL (12.0-15.5) 7.3 g/dL (12.0-15.5) Hematocrit 22.8 % (36.0-47.0) 24.0 % (36.0-47.0) Mean Corpuscular Volume 87 fL (79-100) 88 fL (79-100) Mean Corpuscular Hemoglobin 27 pg (25-35) 27 pg (25-35) Mean Corpuscular Hemoglobin Concent 31 g/dL (31-37) 30 g/dL (31-37) Red Cell Distribution Width 22.2 % (11.5-14.5) 22.5 % (11.5-14.5) Platelet Count 8 x10^3/uL (140-400) 67 x10^3/uL (140-400) Neutrophils (%) (Auto) 45 % (31-73) 39 % (31-73) Lymphocytes (%) (Auto) 43 % (24-48) 43 % (24-48) Monocytes (%) (Auto) 12 % (0-9) 13 % (0-9) Eosinophils (%) (Auto) 0 % (0-3) 3 % (0-3) Basophils (%) (Auto) 1 % (0-3) 2 % (0-3) Neutrophils # (Auto) 0.6 x10^3/uL (1.8-7.7) 0.7 x10^3/uL (1.8-7.7) Lymphocytes # (Auto) 0.6 x10^3/uL (1.0-4.8) 0.8 x10^3/uL (1.0-4.8) Monocytes # (Auto) 0.2 x10^3/uL (0.0-1.1) 0.2 x10^3/uL (0.0-1.1) Eosinophils # (Auto) 0.0 x10^3/uL (0.0-0.7) 0.0 x10^3/uL (0.0-0.7) Basophils # (Auto) 0.0 x10^3/uL (0.0-0.2) 0.0 x10^3/uL (0.0-0.2) Platelet Estimate Decreased (ADEQUATE) Decreased (ADEQUATE) Hypochromasia Mod Slight Poikilocytosis Slight Anisocytosis Mod Mod Ovalocytes Few Sodium Level 142 mmol/L (136-145) 141 mmol/L (136-145) Potassium Level 4.0 mmol/L (3.5-5.1) 4.2 mmol/L (3.5-5.1) Chloride Level 114 mmol/L (98-107) 112 mmol/L (98-107) Carbon Dioxide Level 24 mmol/L (21-32) 23 mmol/L (21-32) Anion Gap 4 (6-14) 6 (6-14) Blood Urea Nitrogen 15 mg/dL (7-20) 15 mg/dL (7-20) Creatinine 1.6 mg/dL (0.6-1.0) 1.5 mg/dL (0.6-1.0) Estimated GFR (Cockcroft-Gault) 39.8 42.9 BUN/Creatinine Ratio 9 (6-20) Glucose Level 90 mg/dL (70-99) 79 mg/dL (70-99) Calcium Level 8.2 mg/dL (8.5-10.1) 8.7 mg/dL (8.5-10.1) Total Bilirubin 0.2 mg/dL (0.2-1.0) Aspartate Amino Transf (AST/SGOT) 12 U/L (15-37) Alanine Aminotransferase (ALT/SGPT) < 6 U/L (14-59) Alkaline Phosphatase 40 U/L (46-116) Total Protein 5.3 g/dL (6.4-8.2) Albumin 1.2 g/dL (3.4-5.0) Albumin/Globulin Ratio 0.3 (1.0-1.7) Segmented Neutrophils % 43 % (35-66) Band Neutrophils % 3 % (0-9) Lymphocytes % 39 % (24-48) Monocytes % 13 % (0-10) Metamyelocytes % 1 % (0-0) Myelocytes % 1 % (0-0) Nucleated Red Blood Cells 1 Polychromasia Slight Medications Current Medications Iohexol (Omnipaque 300 Mg/ml) 75 ml 1X ONCE IV Last administered on 07/18/20at 10:15; Start 07/18/20 at 10:15; Stop 07/18/20 at 10:16; Status DC Ceftriaxone Sodium (Rocephin) 1 gm 1X ONCE IVP Last administered on 07/18/20at 17:06; Start 07/18/20 at 12:00; Stop 07/18/20 at 12:01; Status DC Calcium Carbonate/ Glycine (Oscal) 500 mg TIDAFTMEAL PO Last administered on 07/24/20at 18:12; Start 07/18/20 at 18:00 Amlodipine Besylate (Norvasc) 10 mg DAILY PO Last administered on 07/24/20at 08:30; Start 07/19/20 at 09:00 Aspirin (Aspirin Chewable) 81 mg DAILY PO Last administered on 07/24/20at 08:30; Start 07/19/20 at 09:00 Bisacodyl (Dulcolax Supp) 10 mg PRN DAILY PRN [place] CONSTIPATION; Start 07/18/20 at 15:45 Divalproex Sodium (Depakote Er) 1,500 mg QHS PO Last administered on 07/24/20at 21:33; Start 07/18/20 at 21:00 Fluticasone Propionate (Flonase) 2 spray QHS NS Last administered on 07/24/20at 21:00; Start 07/18/20 at 21:00 Levothyroxine Sodium (Synthroid) 75 mcg DAILY06 PO Last administered on 07/25/20at 05:45; Start 07/19/20 at 06:00 Polyethylene Glycol (miraLAX PACKET) 17 gm PRN Q24HRS PRN PO CONSTIPATION; Start 07/18/20 at 15:45 Sertraline HCl (Zoloft) 25 mg DAILY PO Last administered on 07/24/20 08:30; Start 07/19/20 at 09:00 Topiramate (Topamax) 100 mg BID PO Last administered on 07/24/20at 21:34; Start 07/18/20 at 21:00 Albuterol/ Ipratropium (Duoneb) 3 ml RTQID NEB Last administered on 07/25/20at 07:46; Start 07/18/20 at 16:00 Piperacillin Sod/ Tazobactam Sod (Zosyn Per Pharmacy) 1 each PRN DAILY PRN [facility] SEE COMMENTS; Start 07/18/20 at 15:45; Stop 07/24/20 at 10:36; Status DC Sodium Chloride 1,000 ml @ 45 mls/hr [id number] IV Last administered on 07/24/20at 18:13; Start 07/18/20 at 17:00 Ondansetron HCl (Zofran) 4 mg PRN Q6HRS PRN IVP NAUSEA/VOMITING; Start 07/18/20 at 16:00 Al Hydroxide/Mg Hydroxide (Mylanta Plus Xs) 30 ml PRN Q3HRS PRN PO HEARTBURN / GAS; Start 07/18/20 at 16:00 Calcium Carbonate/ Glycine (Tums) 500 mg PRN Q3HRS PRN PO UPSET STOMACH; Start 07/18/20 at 16:00 Zolpidem Tartrate (Ambien) 5 mg PRN QHS PRN PO INSOMNIA, MAY REPEAT IN 1HR Last administered on 07/22/20at 21:53; Start 07/18/20 at 16:00 Acetaminophen/ Hydrocodone Bitart (Lortab 5/325) 1 tab PRN Q4HRS PRN PO MILD PAIN 1-3; Start 07/18/20 at 16:00 Acetaminophen (Tylenol) 650 mg PRN Q6HRS PRN PO Headaches, Temp > 101.5F; S tart 07/18/20 at 16:00 Enoxaparin Sodium (Lovenox 40mg Syringe) 40 mg Q24H SQ Last administered on 07/18/20at 20:07; Start 07/18/20 at 21:00; Stop 07/19/20 at 15:38; Status DC Piperacillin Sod/ Tazobactam Sod 3.375 gm/Sodium Chloride 50 ml @ 100 mls/hr Q6 HRS IV Last administered on 07/24/20at 06:05; Start 07/18/20 at 18:00; Stop 07/24/20 at 10:36; Status DC Labetalol HCl (Normodyne Iv Push) 20 mg PRN Q2HR PRN IVP HYPERTENSION Last administered on 07/24/20at 12:24; Start 07/20/20 at 03:30 Nystatin (Nystop) 1 carmen BID TP Last administered on 07/24/20at 21:34; Start 07/22/20 at 00:00 Lisinopril (Prinivil) 2.5 mg BID PO Last administered on 07/24/20at 21:34; Start 07/23/20 at 12:00 Active Scripts Active Bisacodyl 10 Mg Supp.rect 10 Mg [place] PRN DAILY PRN 30 Days [place] Saline Nasal Gel (Sodium Chloride/Aloe Vera) 14.1 Gm Gel..gram. 1 [place] NS PRN DAILY PRN 30 Days Fluticasone Propionate Nasal [place] (Fluticasone Propionate) 16 Gm [place].susp 2 [place] NS QHS 30 Days Amlodipine Besylate 10 Mg Tablet 10 Mg PO DAILY 30 Days Reported Zofran (Ondansetron Hcl) 4 Mg Tablet 1 Tab PO Q6HRS Acetaminophen 325 Mg Tablet 650 Mg PO PRN Q6HRS PRN Combivent Respimat Inhal (Ipratropium/Albuterol Sulfate) 4 Gm Aer.w.adap 2 Inh IH QID Latuda (Lurasidone Hcl) 20 Mg Tablet 1 Tab PO DAILY 30 Days Zoloft (Sertraline Hcl) 25 Mg Tablet 1 Tab PO DAILY Nystatin 15 Gm Powder 1 Carmen TP PRN PRN 7 Days apply to affected area(s) Miralax (Polyethylene Glycol 3350) 17 Gm Powd.pack 1 Packet PO PRN Q24HRS PRN 2 Days dissolve in water Miralax (Polyethylene Glycol 3350) 17 Gm Powd.pack 1 Packet PO QMWF 2 Days dissolve in water Depakote Er (Divalproex Sodium) 500 Mg Tab.er.24h 3 Tab PO QHS Mylanta Maximum Strength Liq (Mag Hydrox/Aluminum Hyd/Simeth) 355 Ml Oral.susp 30 Ml PO PRN Q4HRS PRN Risperdal Consta (Risperidone Microspheres) 37.5 Mg/2 Ml Disp.syrin 50 Mg IM Q2WKS Topamax (Topiramate) 100 Mg Tablet 1 Tab PO BID Risperdal (Risperidone) 4 Mg Tablet 1 Tab PO BID Milk Of Magnesia (Magnesium Hydroxide) 400 Mg/5 Ml Oral.susp 30 Ml PO DAILY PRN Anti-Diarrhea (Loperamide Hcl) 2 Mg Tablet 2 Mg PO PRN Levothyroxine Sodium 75 Mcg Tablet 1 Tab PO DAILY Aspirin 81 Mg Tab.chew 1 Tab PO DAILY Vitals/I & O Vital Sign - Last 24 Hours 07/24/20 07/24/20 07/24/20 07/24/20 09:07 11:00 12:17 12:24 Temp 98.1 98.1 Pulse 72 87 Resp 20 B/P (MAP) 186/79 (114) 186/79 Pulse Ox 96 100 100 O2 Delivery Nasal Cannula Nasal Cannula Nasal Cannula O2 Flow Rate 3.0 3.0 2.0 07/24/20 07/24/20 07/24/20 07/24/20 15:00 16:01 19:00 20:00 Temp 98.2 98.9 98.2 98.9 Pulse 69 88 Resp 20 18 B/P (MAP) 169/75 (106) 188/95 (126) Pulse Ox 93 92 100 O2 Delivery Nasal Cannula Nasal Cannula Nasal Cannula Nasal Cannula O2 Flow Rate 3.0 2.0 2.0 3.0 07/24/20 07/24/20 07/24/20 07/24/20 20:23 20:30 21:34 21:40 Pulse 88 80 B/P (MAP) 188/95 105/70 (82) Pulse Ox 99 98 O2 Delivery Nasal Cannula BiPAP/CPAP O2 Flow Rate 3.0 07/24/20 07/25/20 07/25/20 07/25/20 22:31 01:00 02:48 07:00 Temp 98.7 98.5 98.5 98.7 98.5 98.5 Pulse 88 77 85 Resp 18 18 20 B/P (MAP) 105/70 (82) 174/81 (112) 161/70 (100) Pulse Ox 100 99 96 96 O2 Delivery Nasal Cannula BiPAP/CPAP Nasal Cannula Nasal Cannula O2 Flow Rate 2.0 2.0 2.0 07/25/20 07:47 Pulse Ox 99 O2 Delivery Nasal Cannula O2 Flow Rate 3.0 Intake and Output 07/24/20 07/24/20 07/25/20 15:00 23:00 07:00 Intake Total 450 ml 540 ml 360 ml Balance 450 ml 540 ml 360 ml Justicifation of Admission Dx: Justifications for Admission: Justification of Admission Dx: Yes Altered Mental Status: Altered Mental Status SANAM TAPIA MD Jul 25, 2020 08:57
--- NOTE | 2020-07-25 09:43 | PDOC ---
PULMONARY PROGRESS NOTE Diagnosis PROBLEM LIST Problems Medical Problems: (1) PNA (pneumonia) Status: Acute Objective Vital Signs Date Time Temp Pulse Resp B/P (MAP) Pulse Ox O2 Delivery O2 Flow Rate FiO2 07/25/20 08:50 85 161/70 07/25/20 07:47 99 Nasal Cannula 3.0 07/25/20 07:00 98.5 20 98.5 Intake and Output 07/25/20 07:00 Intake Total 1350 ml Balance 1350 ml Intake Oral 1350 ml # Voids 7 # Bowel Movements 2 VITALS/I&O Vital Sign - Last 24 Hours 07/24/20 07/24/20 07/24/20 07/24/20 11:00 12:17 12:24 15:00 Temp 98.1 98.2 98.1 98.2 Pulse 72 87 69 Resp 20 20 B/P (MAP) 186/79 (114) 186/79 169/75 (106) Pulse Ox 100 100 93 O2 Delivery Nasal Cannula Nasal Cannula Nasal Cannula O2 Flow Rate 3.0 2.0 3.0 07/24/20 07/24/20 07/24/20 07/24/20 16:01 19:00 20:00 20:23 Temp 98.9 98.9 Pulse 88 Resp 18 B/P (MAP) 188/95 (126) Pulse Ox 92 100 99 O2 Delivery Nasal Cannula Nasal Cannula Nasal Cannula Nasal Cannula O2 Flow Rate 2.0 2.0 3.0 3.0 07/24/20 07/24/20 07/24/20 07/24/20 20:30 21:34 21:40 22:31 Temp 98.7 98.7 Pulse 88 80 88 Resp 18 B/P (MAP) 188/95 105/70 (82) 105/70 (82) Pulse Ox 98 100 O2 Delivery BiPAP/CPAP Nasal Cannula O2 Flow Rate 2.0 07/25/20 07/25/20 07/25/20 07/25/20 01:00 02:48 07:00 07:47 Temp 98.5 98.5 98.5 98.5 Pulse 77 85 Resp 18 20 B/P (MAP) 174/81 (112) 161/70 (100) Pulse Ox 99 96 96 99 O2 Delivery BiPAP/CPAP Nasal Cannula Nasal Cannula Nasal Cannula O2 Flow Rate 2.0 2.0 3.0 07/25/20 07/25/20 08:49 08:50 Pulse 85 85 B/P (MAP) 161/70 161/70 Intake and Output 07/24/20 07/24/20 07/25/20 15:00 23:00 07:00 Intake Total 450 ml 540 ml 360 ml Balance 450 ml 540 ml 360 ml Review of Relevant I have reviewed the following items bianca (where applicable) has been applied. Labs Laboratory Tests Test 07/23/20 15:55 07/24/20 04:55 White Blood Count 1.4 x10^3/uL (4.0-11.0) 1.8 x10^3/uL (4.0-11.0) Red Blood Count 2.62 x10^6/uL (3.50-5.40) 2.71 x10^6/uL (3.50-5.40) Hemoglobin 7.1 g/dL (12.0-15.5) 7.3 g/dL (12.0-15.5) Hematocrit 22.8 % (36.0-47.0) 24.0 % (36.0-47.0) Mean Corpuscular Volume 87 fL (79-100) 88 fL (79-100) Mean Corpuscular Hemoglobin 27 pg (25-35) 27 pg (25-35) Mean Corpuscular Hemoglobin Concent 31 g/dL (31-37) 30 g/dL (31-37) Red Cell Distribution Width 22.2 % (11.5-14.5) 22.5 % (11.5-14.5) Platelet Count 8 x10^3/uL (140-400) 67 x10^3/uL (140-400) Neutrophils (%) (Auto) 45 % (31-73) 39 % (31-73) Lymphocytes (%) (Auto) 43 % (24-48) 43 % (24-48) Monocytes (%) (Auto) 12 % (0-9) 13 % (0-9) Eosinophils (%) (Auto) 0 % (0-3) 3 % (0-3) Basophils (%) (Auto) 1 % (0-3) 2 % (0-3) Neutrophils # (Auto) 0.6 x10^3/uL (1.8-7.7) 0.7 x10^3/uL (1.8-7.7) Lymphocytes # (Auto) 0.6 x10^3/uL (1.0-4.8) 0.8 x10^3/uL (1.0-4.8) Monocytes # (Auto) 0.2 x10^3/uL (0.0-1.1) 0.2 x10^3/uL (0.0-1.1) Eosinophils # (Auto) 0.0 x10^3/uL (0.0-0.7) 0.0 x10^3/uL (0.0-0.7) Basophils # (Auto) 0.0 x10^3/uL (0.0-0.2) 0.0 x10^3/uL (0.0-0.2) Platelet Estimate Decreased (ADEQUATE) Decreased (ADEQUATE) Hypochromasia Mod Slight Poikilocytosis Slight Anisocytosis Mod Mod Ovalocytes Few Sodium Level 142 mmol/L (136-145) 141 mmol/L (136-145) Potassium Level 4.0 mmol/L (3.5-5.1) 4.2 mmol/L (3.5-5.1) Chloride Level 114 mmol/L (98-107) 112 mmol/L (98-107) Carbon Dioxide Level 24 mmol/L (21-32) 23 mmol/L (21-32) Anion Gap 4 (6-14) 6 (6-14) Blood Urea Nitrogen 15 mg/dL (7-20) 15 mg/dL (7-20) Creatinine 1.6 mg/dL (0.6-1.0) 1.5 mg/dL (0.6-1.0) Estimated GFR (Cockcroft-Gault) 39.8 42.9 BUN/Creatinine Ratio 9 (6-20) Glucose Level 90 mg/dL (70-99) 79 mg/dL (70-99) Calcium Level 8.2 mg/dL (8.5-10.1) 8.7 mg/dL (8.5-10.1) Total Bilirubin 0.2 mg/dL (0.2-1.0) Aspartate Amino Transf (AST/SGOT) 12 U/L (15-37) Alanine Aminotransferase (ALT/SGPT) < 6 U/L (14-59) Alkaline Phosphatase 40 U/L (46-116) Total Protein 5.3 g/dL (6.4-8.2) Albumin 1.2 g/dL (3.4-5.0) Albumin/Globulin Ratio 0.3 (1.0-1.7) Segmented Neutrophils % 43 % (35-66) Band Neutrophils % 3 % (0-9) Lymphocytes % 39 % (24-48) Monocytes % 13 % (0-10) Metamyelocytes % 1 % (0-0) Myelocytes % 1 % (0-0) Nucleated Red Blood Cells 1 Polychromasia Slight Medications Current Medications Iohexol (Omnipaque 300 Mg/ml) 75 ml 1X ONCE IV Last administered on 07/18/20at 10:15; Start 07/18/20 at 10:15; Stop 07/18/20 at 10:16; Status DC Ceftriaxone Sodium (Rocephin) 1 gm 1X ONCE IVP Last administered on 07/18/20at 17:06; Start 07/18/20 at 12:00; Stop 07/18/20 at 12:01; Status DC Calcium Carbonate/ Glycine (Oscal) 500 mg TIDAFTMEAL PO Last administered on 07/25/20 08:50; Start 07/18/20 at 18:00 Amlodipine Besylate (Norvasc) 10 mg DAILY PO Last administered on 07/25/20 08:49; Start 07/19/20 at 09:00 Aspirin (Aspirin Chewable) 81 mg DAILY PO Last administered on 07/25/20at 08:49; Start 07/19/20 at 09:00 Bisacodyl (Dulcolax Supp) 10 mg PRN DAILY PRN [place] CONSTIPATION; Start 07/18/20 at 15:45 Divalproex Sodium (Depakote Er) 1,500 mg QHS PO Last administered on 07/24/20at 21:33; Start 07/18/20 at 21:00 Fluticasone Propionate (Flonase) 2 spray QHS NS Last administered on 07/24/20at 21:00; Start 07/18/20 at 21:00 Levothyroxine Sodium (Synthroid) 75 mcg DAILY06 PO Last administered on 07/25/20at 05:45; Start 07/19/20 at 06:00 Polyethylene Glycol (miraLAX PACKET) 17 gm PRN Q24HRS PRN PO CONSTIPATION; Start 07/18/20 at 15:45 Sertraline HCl (Zoloft) 25 mg DAILY PO Last administered on 07/25/20at 08:50; Start 07/19/20 at 09:00 Topiramate (Topamax) 100 mg BID PO Last administered on 07/25/20at 08:50; Start 07/18/20 at 21:00 Albuterol/ Ipratropium (Duoneb) 3 ml RTQID NEB Last administered on 07/25/20at 07:46; Start 07/18/20 at 16:00 Piperacillin Sod/ Tazobactam Sod (Zosyn Per Pharmacy) 1 each PRN DAILY PRN [facility] SEE COMMENTS; Start 07/18/20 at 15:45; Stop 07/24/20 at 10:36; Status DC Sodium Chloride 1,000 ml @ 45 mls/hr [id number] IV Last administered on 07/24/20at 18:13; Start 07/18/20 at 17:00 Ondansetron HCl (Zofran) 4 mg PRN Q6HRS PRN IVP NAUSEA/VOMITING; Start 07/18/20 at 16:00 Al Hydroxide/Mg Hydroxide (Mylanta Plus Xs) 30 ml PRN Q3HRS PRN PO HEARTBURN / GAS; Start 07/18/20 at 16:00 Calcium Carbonate/ Glycine (Tums) 500 mg PRN Q3HRS PRN PO UPSET STOMACH; Start 07/18/20 at 16:00 Zolpidem Tartrate (Ambien) 5 mg PRN QHS PRN PO INSOMNIA, MAY REPEAT IN 1HR Last administered on 07/22/20at 21:53; Start 07/18/20 at 16:00 Acetaminophen/ Hydrocodone Bitart (Lortab 5/325) 1 tab PRN Q4HRS PRN PO MILD PAIN 1-3; Start 07/18/20 at 16:00 Acetaminophen (Tylenol) 650 mg PRN Q6HRS PRN PO Headaches, Temp > 101.5F; Start 07/18/20 at 16:00 Enoxaparin Sodium (Lovenox 40mg Syringe) 40 mg Q24H SQ Last administered on 07/18/20at 20:07; Start 07/18/20 at 21:00; Stop 07/19/20 at 15:38; Status DC Piperacillin Sod/ Tazobactam Sod 3.375 gm/Sodium Chloride 50 ml @ 100 mls/hr Q6HRS IV Last administered on 07/24/20at 06:05; Start 07/18/20 at 18:00; Stop 07/24/20 at 10:36; Status DC Labetalol HCl (Normodyne Iv Push) 20 mg PRN Q2HR PRN IVP HYPERTENSION Last administered on 07/24/20at 12:24; Start 07/20/20 at 03:30 Nystatin (Nystop) 1 carmen BID TP Last administered on 07/25/20at 08:55; Start 07/22/20 at 00:00 Lisinopril (Prinivil) 2.5 mg BID PO Last administered on 07/25/20at 08:50; Start 07/23/20 at 12:00 Active Scripts Active Bisacodyl 10 Mg Supp.rect 10 Mg [place] PRN DAILY PRN 30 Days [place] Saline Nasal Gel (Sodium Chloride/Aloe Vera) 14.1 Gm Gel..gram. 1 [place] NS PRN DAILY PRN 30 Days Fluticasone Propionate Nasal [place] (Fluticasone Propionate) 16 Gm [place].susp 2 [place] NS QHS 30 Days Amlodipine Besylate 10 Mg Tablet 10 Mg PO DAILY 30 Days Reported Zofran (Ondansetron Hcl) 4 Mg Tablet 1 Tab PO Q6HRS Acetaminophen 325 Mg Tablet 650 Mg PO PRN Q6HRS PRN Combivent Respimat Inhal (Ipratropium/Albuterol Sulfate) 4 Gm Aer.w.adap 2 Inh IH QID Latuda (Lurasidone Hcl) 20 Mg Tablet 1 Tab PO DAILY 30 Days Zoloft (Sertraline Hcl) 25 Mg Tablet 1 Tab PO DAILY Nystatin 15 Gm Powder 1 [place] TP PRN PRN 7 Days apply to affected area(s) Miralax (Polyethylene Glycol 3350) 17 Gm Powd.pack 1 Packet PO PRN Q24HRS PRN 2 Days dissolve in water Miralax (Polyethylene Glycol 3350) 17 Gm Powd.pack 1 Packet PO QMWF 2 Days dissolve in water Depakote Er (Divalproex Sodium) 500 Mg Tab.er.24h 3 Tab PO QHS Mylanta Maximum Strength Liq (Mag Hydrox/Aluminum Hyd/Simeth) 355 Ml Oral.susp 30 Ml PO PRN Q4HRS PRN Risperdal Consta (Risperidone Microspheres) 37.5 Mg/2 Ml Disp.syrin 50 Mg IM Q2 WKS Topamax (Topiramate) 100 Mg Tablet 1 Tab PO BID Risperdal (Risperidone) 4 Mg Tablet 1 Tab PO BID Milk Of Magnesia (Magnesium Hydroxide) 400 Mg/5 Ml Oral.susp 30 Ml PO DAILY PRN Anti-Diarrhea (Loperamide Hcl) 2 Mg Tablet 2 Mg PO PRN Levothyroxine Sodium 75 Mcg Tablet 1 Tab PO DAILY Aspirin 81 Mg Tab.chew 1 Tab PO DAILY Justicifation of Admission Dx: Justifications for Admission: Justification of Admission Dx: Yes Altered Mental Status: Altered Mental Status NILA CRANE MD Jul 25, 2020 09:43
--- NOTE | 2020-07-25 10:41 | PDOC ---
PROGRESS NOTES Date of Service DATE: 07/25/20 TIME: 10:39 Subjective Subjective No interval events. Received platelet transfusion yesterday with improvement in platelet count today. Objective Objective Vital Signs Date Time Temp Pulse Resp B/P (MAP) Pulse Ox O2 Delivery O2 Flow Rate FiO2 07/25/20 08:50 85 161/70 07/25/20 08:05 Nasal Cannula 3.0 07/25/20 07:47 99 07/25/20 07:00 98.5 20 98.5 Intake and Output 07/25/20 07:00 Intake Total 1350 ml Balance 1350 ml Intake Oral 1350 ml # Voids 7 # Bowel Movements 2 Physical Exam Abdomen: Normal bowel sounds, Soft Heart: Regular rate Extremities: No cyanosis General: No acute distress HEENT: Atraumatic Lungs: Clear to auscultation MUSCULOSKELETAL: No swelling Neck: Supple Assessment Assessment Pancytopenia: With chronic normocytic anemia and leukopenia and new onset thrombocytopenia CKD 4 Epilepsy, on Depakote and Topamax Right lower lobe pneumonia, on Zosyn Metabolic encephalopathy Plan Plan of Care -She has had previously known chronic leukopenia as well as anemia that can be explained by CKD. -Thrombocytopenia that was noted during her prior hospitalization due to COVID- 19 infection in April 2020 had subsequently improved and she now has a new severe thrombocytopenia -Low suspicion for HIT given presence of thrombocytopenia at the time of admission. I suspect that thrombocytopenia is most likely reactive secondary to acute illness given normal peripheral smear and haptoglobin -Continues to be somnolent at this time but would recommend bone marrow biopsy once clinical status improves for evaluation of pancytopenia -Previously ordered work-up with SPEP, free light chains, B12, iron studies, copper level returned unremarkable. Reticulocyte count was relatively low and erythropoietin level was slightly elevated suggestive of anemia of chronic disease -Management of pneumonia per pulmonology service -Plan outpatient follow-up in hematology clinic with repeat bone marrow biopsy in 4 weeks -Management of encephalopathy per Dr. Juarez. No additional evaluation has been recommended by neurology at this point -Rest per primary service Pool Calderon MD Medical Oncology/Hematology Ph: [phone] Comment Review of Relevant I have reviewed the following items bianca (where applicable) has been applied. Labs Laboratory Tests Test 07/23/20 15:55 07/24/20 04:55 White Blood Count 1.4 x10^3/uL (4.0-11.0) 1.8 x10^3/uL (4.0-11.0) Red Blood Count 2.62 x10^6/uL (3.50-5.40) 2.71 x10^6/uL (3.50-5.40) Hemoglobin 7.1 g/dL (12.0-15.5) 7.3 g/dL (12.0-15.5) Hematocrit 22.8 % (36.0-47.0) 24.0 % (36.0-47.0) Mean Corpuscular Volume 87 fL (79-100) 88 fL (79-100) Mean Corpuscular Hemoglobin 27 pg (25-35) 27 pg (25-35) Mean Corpuscular Hemoglobin Concent 31 g/dL (31-37) 30 g/dL (31-37) Red Cell Distribution Width 22.2 % (11.5-14.5) 22.5 % (11.5-14.5) Platelet Count 8 x10^3/uL (140-400) 67 x10^3/uL (140-400) Neutrophils (%) (Auto) 45 % (31-73) 39 % (31-73) Lymphocytes (%) (Auto) 43 % (24-48) 43 % (24-48) Monocytes (%) (Auto) 12 % (0-9) 13 % (0-9) Eosinophils (%) (Auto) 0 % (0-3) 3 % (0-3) Basophils (%) (Auto) 1 % (0-3) 2 % (0-3) Neutrophils # (Auto) 0.6 x10^3/uL (1.8-7.7) 0.7 x10^3/uL (1.8-7.7) Lymphocytes # (Auto) 0.6 x10^3/uL (1.0-4.8) 0.8 x10^3/uL (1.0-4.8) Monocytes # (Auto) 0.2 x10^3/uL (0.0-1.1) 0.2 x10^3/uL (0.0-1.1) Eosinophils # (Auto) 0.0 x10^3/uL (0.0-0.7) 0.0 x10^3/uL (0.0-0.7) Basophils # (Auto) 0.0 x10^3/uL (0.0-0.2) 0.0 x10^3/uL (0.0-0.2) Platelet Estimate Decreased (ADEQUATE) Decreased (ADEQUATE) Hypochromasia Mod Slight Poikilocytosis Slight Anisocytosis Mod Mod Ovalocytes Few Sodium Level 142 mmol/L (136-145) 141 mmol/L (136-145) Potassium Level 4.0 mmol/L (3.5-5.1) 4.2 mmol/L (3.5-5.1) Chloride Level 114 mmol/L (98-107) 112 mmol/L (98-107) Carbon Dioxide Level 24 mmol/L (21-32) 23 mmol/L (21-32) Anion Gap 4 (6-14) 6 (6-14) Blood Urea Nitrogen 15 mg/dL (7-20) 15 mg/dL (7-20) Creatinine 1.6 mg/dL (0.6-1.0) 1.5 mg/dL (0.6-1.0) Estimated GFR (Cockcroft-Gault) 39.8 42.9 BUN/Creatinine Ratio 9 (6-20) Glucose Level 90 mg/dL (70-99) 79 mg/dL (70-99) Calcium Level 8.2 mg/dL (8.5-10.1) 8.7 mg/dL (8.5-10.1) Total Bilirubin 0.2 mg/dL (0.2-1.0) Aspartate Amino Transf (AST/SGOT) 12 U/L (15-37) Alanine Aminotransferase (ALT/SGPT) < 6 U/L (14-59) Alkaline Phosphatase 40 U/L (46-116) Total Protein 5.3 g/dL (6.4-8.2) Albumin 1.2 g/dL (3.4-5.0) Albumin/Globulin Ratio 0.3 (1.0-1.7) Segmented Neutrophils % 43 % (35-66) Band Neutrophils % 3 % (0-9) Lymphocytes % 39 % (24-48) Monocytes % 13 % (0-10) Metamyelocytes % 1 % (0-0) Myelocytes % 1 % (0-0) Nucleated Red Blood Cells 1 Polychromasia Slight Medications Current Medications Iohexol (Omnipaque 300 Mg/ml) 75 ml 1X ONCE IV Last administered on 07/18/20 10:15; Start 07/18/20 at 10:15; Stop 07/18/20 at 10:16; Status DC Ceftriaxone Sodium (Rocephin) 1 gm 1X ONCE IVP Last administered on 07/18/20at 17:06; Start 07/18/20 at 12:00; Stop 07/18/20 at 12:01; Status DC Calcium Carbonate/ Glycine (Oscal) 500 mg TIDAFTMEAL PO Last administered on 07/25/20 08:50; Start 07/18/20 at 18:00 Amlodipine Besylate (Norvasc) 10 mg DAILY PO Last administered on 07/25/20 08:49; Start 07/19/20 at 09:00 Aspirin (Aspirin Chewable) 81 mg DAILY PO Last administered on 07/25/20 08:49; Start 07/19/20 at 09:00 Bisacodyl (Dulcolax Supp) 10 mg PRN DAILY PRN OK CONSTIPATION; Start 07/18/20 at 15:45 Divalproex Sodium (Depakote Er) 1,500 mg QHS PO Last administered on 07/24/20 21:33; Start 07/18/20 at 21:00 Fluticasone Propionate (Flonase) 2 spray QHS NS Last administered on 07/24/20 21:00; Start 07/18/20 at 21:00 Levothyroxine Sodium (Synthroid) 75 mcg DAILY06 PO Last administered on at 05:45; Start 07/19/20 at 06:00 Polyethylene Glycol (miraLAX PACKET) 17 gm PRN Q24HRS PRN PO CONSTIPATION; Start 07/18/20 at 15:45 Sertraline HCl (Zoloft) 25 mg DAILY PO Last administered on 07/25/20 08:50; Start 07/19/20 at 09:00 Topiramate (Topamax) 100 mg BID PO Last administered on 07/25/20 08:50; Start 07/18/20 at 21:00 Albuterol/ Ipratropium (Duoneb) 3 ml RTQID NEB Last administered on 2/26/21at 07:46; Start 07/18/20 at 16:00 Piperacillin Sod/ Tazobactam Sod (Zosyn Per Pharmacy) 1 each PRN DAILY PRN MC SEE COMMENTS; Start 07/18/20 at 15:45; Stop 07/24/20 at 10:36; Status DC Sodium Chloride 1,000 ml @ 45 mls/hr [id number] IV Last administered on 07/24/20at 18:13; Start 07/18/20 at 17:00 Ondansetron HCl (Zofran) 4 mg PRN Q6HRS PRN IVP NAUSEA/VOMITING; Start 07/18/20 at 16:00 Al Hydroxide/Mg Hydroxide (Mylanta Plus Xs) 30 ml PRN Q3HRS PRN PO HEARTBURN / GAS; Start 07/18/20 at 16:00 Calcium Carbonate/ Glycine (Tums) 500 mg PRN Q3HRS PRN PO UPSET STOMACH; Start 07/18/20 at 16:00 Zolpidem Tartrate (Ambien) 5 mg PRN QHS PRN PO INSOMNIA, MAY REPEAT IN 1HR Last administered on 07/22/20at 21:53; Start 07/18/20 at 16:00 Acetaminophen/ Hydrocodone Bitart (Lortab 5/325) 1 tab PRN Q4HRS PRN PO MILD PAIN 1-3; Start 07/18/20 at 16:00 Acetaminophen (Tylenol) 650 mg PRN Q6HRS PRN PO Headaches, Temp > 101.5F; Start 07/18/20 at 16:00 Enoxaparin Sodium (Lovenox 40mg Syringe) 40 mg Q24H SQ Last administered on 07/18/20at 20:07; Start 07/18/20 at 21:00; Stop 07/19/20 at 15:38; Status DC Piperacillin Sod/ Tazobactam Sod 3.375 gm/Sodium Chloride 50 ml @ 100 mls/hr Q6HRS IV Last administered on 07/24/20at 06:05; Start 07/18/20 at 18:00; Stop 07/24/20 at 10:36; Status DC Labetalol HCl (Normodyne Iv Push) 20 mg PRN Q2HR PRN IVP HYPERTENSION Last administered on 07/24/20at 12:24; Start 2/21/21 at 03:30 Nystatin (Nystop) 1 carmen BID TP Last administered on 07/25/20at 08:55; Start 07/22/20 at 00:00 Lisinopril (Prinivil) 2.5 mg BID PO Last administered on 07/25/20at 08:50; Start 07/23/20 at 12:00 Active Scripts Active Bisacodyl 10 Mg Supp.rect 10 Mg OK PRN DAILY PRN 30 Days [place] Saline Nasal Gel (Sodium Chloride/Aloe Vera) 14.1 Gm Gel..gram. 1 Carmen NS PRN DAILY PRN 30 Days Fluticasone Propionate Nasal Boissevain (Fluticasone Propionate) 16 Gm Boissevain.susp 2 Boissevain NS QHS 30 Days Amlodipine Besylate 10 Mg Tablet 10 Mg PO DAILY 30 Days Reported Zofran (Ondansetron Hcl) 4 Mg Tablet 1 Tab PO Q6HRS Acetaminophen 325 Mg Tablet 650 Mg PO PRN Q6HRS PRN Combivent Respimat Inhal (Ipratropium/Albuterol Sulfate) 4 Gm Aer.w.adap 2 Inh IH QID Latuda (Lurasidone Hcl) 20 Mg Tablet 1 Tab PO DAILY 30 Days Zoloft (Sertraline Hcl) 25 Mg Tablet 1 Tab PO DAILY Nystatin 15 Gm Powder 1 Carmen TP PRN PRN 7 Days apply to affected area(s) Miralax (Polyethylene Glycol 3350) 17 Gm Powd.pack 1 Packet PO PRN Q24HRS PRN 2 Days dissolve in water Miralax (Polyethylene Glycol 3350) 17 Gm Powd.pack 1 Packet PO QMWF 2 Days dissolve in water Depakote Er (Divalproex Sodium) 500 Mg Tab.er.24h 3 Tab PO QHS Mylanta Maximum Strength Liq (Mag Hydrox/Aluminum Hyd/Simeth) 355 Ml Oral.susp 30 Ml PO PRN Q4HRS PRN Risperdal Consta (Risperidone Microspheres) 37.5 Mg/2 Ml Disp.syrin 50 Mg IM Q2WKS Topamax (Topiramate) 100 Mg Tablet 1 Tab PO BID Risperdal (Risperidone) 4 Mg Tablet 1 Tab PO BID Milk Of Magnesia (Magnesium Hydroxide) 400 Mg/5 Ml Oral.susp 30 Ml PO DAILY PRN Anti-Diarrhea (Loperamide Hcl) 2 Mg Tablet 2 Mg PO PRN Levothyroxine Sodium 75 Mcg Tablet 1 Tab PO DAILY Aspirin 81 Mg Tab.chew 1 Tab PO DAILY Vitals/I & O Vital Sign - Last 24 Hours 07/24/20 07/24/20 07/24/20 07/24/20 11:00 12:17 12:24 15:00 Temp 98.1 98.2 98.1 98.2 Pulse 72 87 69 Resp 20 20 B/P (MAP) 186/79 (114) 186/79 169/75 (106) Pulse Ox 100 100 93 O2 Delivery Nasal Cannula Nasal Cannula Nasal Cannula O2 Flow Rate 3.0 2.0 3.0 07/24/20 07/24/20 07/24/20 07/24/20 16:01 19:00 20:00 20:23 Temp 98.9 98.9 Pulse 88 Resp 18 B/P (MAP) 188/95 (126) Pulse Ox 92 100 99 O2 Delivery Nasal Cannula Nasal Cannula Nasal Cannula Nasal Cannula O2 Flow Rate 2.0 2.0 3.0 3.0 07/24/20 07/24/20 07/24/20 07/24/20 20:30 21:34 21:40 22:31 Temp 98.7 98.7 Pulse 88 80 88 Resp 18 B/P (MAP) 188/95 105/70 (82) 105/70 (82) Pulse Ox 98 100 O2 Delivery BiPAP/CPAP Nasal Cannula O2 Flow Rate 2.0 07/25/20 07/25/20 07/25/20 07/25/20 01:00 02:48 07:00 07:47 Temp 98.5 98.5 98.5 98.5 Pulse 77 85 Resp 18 20 B/P (MAP) 174/81 (112) 161/70 (100) Pulse Ox 99 96 96 99 O2 Delivery BiPAP/CPAP Nasal Cannula Nasal Cannula Nasal Cannula O2 Flow Rate 2.0 2.0 3.0 07/25/20 07/25/20 07/25/20 08:05 08:49 08:50 Pulse 85 85 B/P (MAP) 161/70 161/70 O2 Delivery Nasal Cannula O2 Flow Rate 3.0 Intake and Output 07/24/20 07/24/20 07/25/20 15:00 23:00 07:00 Intake Total 450 ml 540 ml 360 ml Balance 450 ml 540 ml 360 ml Justifications for Admission Other Justification Syncope ADRIANE CALDERON MD Jul 25, 2020 10:41
--- NOTE | 2020-07-25 10:59 | NUR ---
Patient is being monitored closely since she keeps removing her oxygen. She has been resting in bed so far this shift and is pleasantly confused. CDiff sample sent during overnight associate per night PRERNA Conner. Will continue to monitor. TELE BEING MONITORED BY CHARGE NURSE DAVID
--- NOTE | 2020-07-25 11:46 | NUR ---
SS following up with discharge planning. SS reviewed pt chart and discussed with pt RN. Pt is currently requiring oxygen at three liters nasal canula. Pt had stool sample for CDIFF due to diarrhea. Pt received platelets and platelets now improved. Dr. Estes stated possible need for bone marrow biopsy and reported that he would discuss with hematology. SS phoned and faxed clinical updates to [facility], ; fax [phone]. Pt is LTC resident from [place] and is able to return when medically stable. SS will continue to follow for discharge planning.
[2020-07-25 12:25] LABS: BASO % 1 % (0-3); EOS % 0 % (0-3); LYMPH # 0.8 x10^3/uL (1.0-4.8); LYMPH % 43 % (24-48); MEAN CORPUSCULAR HEMOGLOBIN 27 pg (25-35); MEAN CORPUSCULAR HGB CONC 31 g/dL (31-37); MEAN CORPUSCULAR VOLUME 86 fL (79-100); MONO # 0.4 x10^3/uL (0.0-1.1); MONO % 19 % (0-9); NEUT # 0.7 x10^3/uL (1.8-7.7); NEUT % 37 % (31-73); PLATELET COUNT 51 x10^3/uL (140-400); RED BLOOD COUNT 2.39 x10^6/uL (3.50-5.40); RED CELL DISTRIBUTION WIDTH 21.4 % (11.5-14.5)
[2020-07-25 12:28] LABS: HEMATOCRIT 20.6 % (36.0-47.0); HEMOGLOBIN 6.4 g/dL (12.0-15.5); WHITE BLOOD COUNT 1.9 x10^3/uL (4.0-11.0)
--- NOTE | 2020-07-25 15:16 | PDOC ---
PULMONARY PROGRESS NOTES DATE: 07/25/20 TIME: 15:14 Subjective Pt. is on 1 liter N/C oxygen wore BiPAP overnight last night S/P platelet transfusion No other concerns from nursing Vitals Vital Signs Date Time Temp Pulse Resp B/P (MAP) Pulse Ox O2 Delivery O2 Flow Rate FiO2 07/25/20 15:02 97.6 69 20 172/75 97.6 07/25/20 14:58 97 Nasal Cannula 1.0 ROS: No Nausea, No Chest Pain, No Abdominal Pain, No Increase Cough General: Alert Lungs: Clear, Other Cardiovascular: S1, S2 Labs Laboratory Tests Test 07/23/20 15:55 07/24/20 04:55 07/25/20 12:00 White Blood Count 1.4 x10^3/uL (4.0-11.0) 1.8 x10^3/uL (4.0-11.0) 1.9 x10^3/uL (4.0-11.0) Red Blood Count 2.62 x10^6/uL (3.50-5.40) 2.71 x10^6/uL (3.50-5.40) 2.39 x10^6/uL (3.50-5.40) Hemoglobin 7.1 g/dL (12.0-15.5) 7.3 g/dL (12.0-15.5) 6.4 g/dL (12.0-15.5) Hematocrit 22.8 % (36.0-47.0) 24.0 % (36.0-47.0) 20.6 % (36.0-47.0) Mean Corpuscular Volume 87 fL (79-100) 88 fL (79-100) 86 fL (79-100) Mean Corpuscular Hemoglobin 27 pg (25-35) 27 pg (25-35) 27 pg (25-35) Mean Corpuscular Hemoglobin Concent 31 g/dL (31-37) 30 g/dL (31-37) 31 g/dL (31-37) Red Cell Distribution Width 22.2 % (11.5-14.5) 22.5 % (11.5-14.5) 21.4 % (11.5-14.5) Platelet Count 8 x10^3/uL (140-400) 67 x10^3/uL (140-400) 51 x10^3/uL (140-400) Neutrophils (%) (Auto) 45 % (31-73) 39 % (31-73) 37 % (31-73) Lymphocytes (%) (Auto) 43 % (24-48) 43 % (24-48) 43 % (24-48) Monocytes (%) (Auto) 12 % (0-9) 13 % (0-9) 19 % (0-9) Eosinophils (%) (Auto) 0 % (0-3) 3 % (0-3) 0 % (0-3) Basophils (%) (Auto) 1 % (0-3) 2 % (0-3) 1 % (0-3) Neutrophils # (Auto) 0.6 x10^3/uL (1.8-7.7) 0.7 x10^3/uL (1.8-7.7) 0.7 x10^3/uL (1.8-7.7) Lymphocytes # (Auto) 0.6 x10^3/uL (1.0-4.8) 0.8 x10^3/uL (1.0-4.8) 0.8 x10^3/uL (1.0-4.8) Monocytes # (Auto) 0.2 x10^3/uL (0.0-1.1) 0.2 x10^3/uL (0.0-1.1) 0.4 x10^3/uL (0.0-1.1) Eosinophils # (Auto) 0.0 x10^3/uL (0.0-0.7) 0.0 x10^3/uL (0.0-0.7) 0.0 x10^3/uL (0.0-0.7) Basophils # (Auto) 0.0 x10^3/uL (0.0-0.2) 0.0 x10^3/uL (0.0-0.2) 0.0 x10^3/uL (0.0-0.2) Platelet Estimate Decreased (ADEQUATE) Decreased (ADEQUATE) Hypochromasia Mod Slight Poikilocytosis Slight Anisocytosis Mod Mod Ovalocytes Few Sodium Level 142 mmol/L (136-145) 141 mmol/L (136-145) Potassium Level 4.0 mmol/L (3.5-5.1) 4.2 mmol/L (3.5-5.1) Chloride Level 114 mmol/L (98-107) 112 mmol/L (98-107) Carbon Dioxide Level 24 mmol/L (21-32) 23 mmol/L (21-32) Anion Gap 4 (6-14) 6 (6-14) Blood Urea Nitrogen 15 mg/dL (7-20) 15 mg/dL (7-20) Creatinine 1.6 mg/dL (0.6-1.0) 1.5 mg/dL (0.6-1.0) Estimated GFR (Cockcroft-Gault) 39.8 42.9 BUN/Creatinine Ratio 9 (6-20) Glucose Level 90 mg/dL (70-99) 79 mg/dL (70-99) Calcium Level 8.2 mg/dL (8.5-10.1) 8.7 mg/dL (8.5-10.1) Total Bilirubin 0.2 mg/dL (0.2-1.0) Aspartate Amino Transf (AST/SGOT) 12 U/L (15-37) Alanine Aminotransferase (ALT/SGPT) < 6 U/L (14-59) Alkaline Phosphatase 40 U/L (46-116) Total Protein 5.3 g/dL (6.4-8.2) Albumin 1.2 g/dL (3.4-5.0) Albumin/Globulin Ratio 0.3 (1.0-1.7) Segmented Neutrophils % 43 % (35-66) Band Neutrophils % 3 % (0-9) Lymphocytes % 39 % (24-48) Monocytes % 13 % (0-10) Metamyelocytes % 1 % (0-0) Myelocytes % 1 % (0-0) Nucleated Red Blood Cells 1 Polychromasia Slight Laboratory Tests Test 07/25/20 12:00 White Blood Count 1.9 x10^3/uL (4.0-11.0) Red Blood Count 2.39 x10^6/uL (3.50-5.40) Hemoglobin 6.4 g/dL (12.0-15.5) Hematocrit 20.6 % (36.0-47.0) Mean Corpuscular Volume 86 fL (79-100) Mean Corpuscular Hemoglobin 27 pg (25-35) Mean Corpuscular Hemoglobin Concent 31 g/dL (31-37) Red Cell Distribution Width 21.4 % (11.5-14.5) Platelet Count 51 x10^3/uL (140-400) Neutrophils (%) (Auto) 37 % (31-73) Lymphocytes (%) (Auto) 43 % (24-48) Monocytes (%) (Auto) 19 % (0-9) Eosinophils (%) (Auto) 0 % (0-3) Basophils (%) (Auto) 1 % (0-3) Neutrophils # (Auto) 0.7 x10^3/uL (1.8-7.7) Lymphocytes # (Auto) 0.8 x10^3/uL (1.0-4.8) Monocytes # (Auto) 0.4 x10^3/uL (0.0-1.1) Eosinophils # (Auto) 0.0 x10^3/uL (0.0-0.7) Basophils # (Auto) 0.0 x10^3/uL (0.0-0.2) Medications Active Scripts Medications Dose Route/Sig Max Daily Dose Days Date Category Dose Instructions Bisacodyl 10 Mg Supp.rect 10 Mg [place] PRN DAILY PRN 30 06/25/20 Rx [place] Saline Nasal Gel (Sodium Chloride/Aloe Vera) 14.1 Gm Gel..gram. 1 Carmen NS PRN DAILY PRN 30 06/25/20 Rx Fluticasone Propionate Nasal Dupo (Fluticasone Propionate) 16 Gm Dupo.susp 2 Dupo NS QHS 30 06/25/20 Rx Amlodipine Besylate 10 Mg Tablet 10 Mg PO DAILY 30 06/25/20 Rx Zofran (Ondansetron Hcl) 4 Mg Tablet 1 Tab PO Q6HRS 06/21/20 Reported Acetaminophen 325 Mg Tablet 650 Mg PO PRN Q6HRS PRN 06/02/20 Reported Combivent Respimat Inhal (Ipratropium/Albuterol Sulfate) 4 Gm Aer.w.adap 2 Inh IH QID 05/24/20 Reported Latuda (Lurasidone Hcl) 20 Mg Tablet 1 Tab PO DAILY 30 05/24/20 Reported Zoloft (Sertraline Hcl) 25 Mg Tablet 1 Tab PO DAILY 11/09/19 Reported Nystatin 15 Gm Powder 1 Carmen TP PRN PRN 7 11/09/19 Reported apply to affected area(s) Miralax (Polyethylene Glycol 3350) 17 Gm Powd.pack 1 Packet PO PRN Q24HRS PRN 2 11/09/19 Reported dissolve in water Miralax (Polyethylene Glycol 3350) 17 Gm Powd.pack 1 Packet PO QMWF 2 11/09/19 Reported dissolve in water Depakote Er (Divalproex Sodium) 500 Mg Tab.er.24h 3 Tab PO QHS 11/09/19 Reported Mylanta Maximum Strength Liq (Mag Hydrox/Aluminum Hyd/Simeth) 355 Ml Oral.susp 30 Ml PO PRN Q4HRS PRN 11/09/19 Reported Risperdal Consta (Risperidone Microspheres) 37.5 Mg/2 Ml Disp.syrin 50 Mg IM Q2WKS 01/03/17 Reported Topamax (Topiramate) 100 Mg Tablet 1 Tab PO BID 01/03/17 Reported Risperdal (Risperidone) 4 Mg Tablet 1 Tab PO BID 01/03/17 Reported Milk Of Magnesia (Magnesium Hydroxide) 400 Mg/5 Ml Oral.susp 30 Ml PO DAILY PRN 01/03/17 Reported Anti-Diarrhea (Loperamide Hcl) 2 Mg Tablet 2 Mg PO PRN 01/03/17 Reported Levothyroxine Sodium 75 Mcg Tablet 1 Tab PO DAILY 01/03/17 Reported Aspirin 81 Mg Tab.chew 1 Tab PO DAILY 01/03/17 Reported Impression . IMPRESSION: 1. Acute hypercapnic respiratory failure of unclear etiology. Reportedly, she is not a smoker. Could be contributed by transient ischemic attack symptoms/ encephalopathy.--improved with BIPAP Cannot exclude the possibility of seizure. CT head with no evidence of any ischemic or hemorrhagic stroke. Not on narcotics. She is currently on BiPAP and her blood gases have improved. 2. Leukopenia and thrombocytopenia. Needs further evaluation. Hematology consultation. 3. No significant tobacco history. 4. Right lower lobe interstitial faint infiltrate. Need to cover for aspiration pneumonia. 5. Mildly increased procalcitonin level. Plan . RECOMMENDATIONS: Continue supplemental oxygen to keep sats above 92%, BiPAP at at bedtime 20/6 with a rate of 24 to 40% Avoid any sedatives Pt. completed full course of zosyn Follow Neurology recommendations Monitor BUN and creatinine, improved Follow Hematology recs for her thrombocytopenia as well as leukopenia, planned for outpatient bone marrow biopsy in 4 weeks PT/OT Discussed with NILA COBIAN MD Jul 25, 2020 15:16
--- NOTE | 2020-07-25 15:48 | RAD ---
Portable chest x-ray compared to similar exam dated July 21, 2020 for pneumonia. FINDINGS: Lungs are better aerated today, and there is persistent but improved hazy opacification of the right lung base. Appearance of central vascular congestion is improved as well. Heart size remain s mildly enlarged. IMPRESSION: 1. Improved aeration and central vascular congestion with persistent right basilar airspace opacity. Electronically signed by: Ricardo Black MD (07/25/2020 3:45 PM) [id number]
--- NOTE | 2020-07-25 19:14 | NUR ---
Patient had one unit of PRBC ordered per Dr Estes. One unit of PRBC given without any complications noted. Follow up HH lab ordered for 2100 and a follow up CBC is to be done in the morning. On coming shift notified.
[2020-07-25] MEDS: LABETALOL 20 MG/4 ML DISP.SYRIN. IVP PRN (19:42)
[2020-07-25] MEDS: IV NORMAL SALINE 1000ML BAG 1,000 ML IV SCH (20:05)
[2020-07-25 21:22] LABS: HEMATOCRIT 24.9 % (36.0-47.0); HEMOGLOBIN 7.8 g/dL (12.0-15.5)
[2020-07-25] MEDS: FLUTICASONE 50MCG/NASAL SPRAY 16GM BOTTLE. NS SCH (21:51)
[2020-07-25] MEDS: DIVALPROEX EXTENDED RELEASE 500 MG TAB.ER.24H. PO SCH (21:51)
[2020-07-26 02:00] VITALS: BP 140/88
[2020-07-26] MEDS: LEVOTHYROXINE 75 MCG TABLET PO SCH (06:12)
[2020-07-26 07:29] LABS: CALCIUM 9.5 mg/dL (8.5-10.1); CREATININE 1.5 mg/dL (0.6-1.0); GFR 42.9; POTASSIUM 4.3 mmol/L (3.5-5.1)
[2020-07-26] MEDS: IPRATRPIUM/ALBUTEROL 0.5/2.5MG 3 ML NEBU. NEB SCH ×4 (07:31→19:45)
[2020-07-26 07:32] VITALS: BP 199/87
--- NOTE | 2020-07-26 07:44 | PDOC ---
PULMONARY PROGRESS NOTES DATE: 07/26/20 TIME: 07:43 Subjective Pt. is on 1 liter N/C oxygen used BiPAP part of the night last night S/P platelet transfusion No other concerns from nursing Vitals Vital Signs Date Time Temp Pulse Resp B/P (MAP) Pulse Ox O2 Delivery O2 Flow Rate FiO2 07/26/20 07:33 99 2.5 07/26/20 07:32 97.7 91 24 199/87 (124) Nasal Cannula 97.7 ROS: No Nausea, No Chest Pain, No Abdominal Pain, No Increase Cough General: Alert Lungs: Clear, Other Cardiovascular: S1, S2 Abdomen: Soft Neuro Exam: Alert Skin: Warm Labs Laboratory Tests Test 07/25/20 05:00 07/25/20 12:00 07/25/20 21:15 07/26/20 06:40 Clostridium difficile Toxin (PCR) Negative (NEGATIVE) White Blood Count 1.9 x10^3/uL (4.0-11.0) Red Blood Count 2.39 x10^6/uL (3.50-5.40) Hemoglobin 6.4 g/dL (12.0-15.5) 7.8 g/dL (12.0-15.5) Hematocrit 20.6 % (36.0-47.0) 24.9 % (36.0-47.0) Mean Corpuscular Volume 86 fL (79-100) Mean Corpuscular Hemoglobin 27 pg (25-35) Mean Corpuscular Hemoglobin Concent 31 g/dL (31-37) 31 g/dL (31-37) Red Cell Distribution Width 21.4 % (11.5-14.5) Platelet Count 51 x10^3/uL (140-400) Neutrophils (%) (Auto) 37 % (31-73) Lymphocytes (%) (Auto) 43 % (24-48) Monocytes (%) (Auto) 19 % (0-9) Eosinophils (%) (Auto) 0 % (0-3) Basophils (%) (Auto) 1 % (0-3) Neutrophils # (Auto) 0.7 x10^3/uL (1.8-7.7) Lymphocytes # (Auto) 0.8 x10^3/uL (1.0-4.8) Monocytes # (Auto) 0.4 x10^3/uL (0.0-1.1) Eosinophils # (Auto) 0.0 x10^3/uL (0.0-0.7) Basophils # (Auto) 0.0 x10^3/uL (0.0-0.2) Sodium Level 143 mmol/L (136-145) Potassium Level 4.3 mmol/L (3.5-5.1) Chloride Level 114 mmol/L (98-107) Carbon Dioxide Level 23 mmol/L (21-32) Anion Gap 6 (6-14) Blood Urea Nitrogen 14 mg/dL (7-20) Creatinine 1.5 mg/dL (0.6-1.0) Estimated GFR (Cockcroft-Gault) 42.9 Glucose Level 81 mg/dL (70-99) Calcium Level 9.5 mg/dL (8.5-10.1) Laboratory Tests Test 07/25/20 12:00 07/25/20 21:15 07/26/20 06:40 White Blood Count 1.9 x10^3/uL (4.0-11.0) Red Blood Count 2.39 x10^6/uL (3.50-5.40) Hemoglobin 6.4 g/dL (12.0-15.5) 7.8 g/dL (12.0-15.5) Hematocrit 20.6 % (36.0-47.0) 24.9 % (36.0-47.0) Mean Corpuscular Volume 86 fL (79-100) Mean Corpuscular Hemoglobin 27 pg (25-35) Mean Corpuscular Hemoglobin Concent 31 g/dL (31-37) 31 g/dL (31-37) Red Cell Distribution Width 21.4 % (11.5-14.5) Platelet Count 51 x10^3/uL (140-400) Neutrophils (%) (Auto) 37 % (31-73) Lymphocytes (%) (Auto) 43 % (24-48) Monocytes (%) (Auto) 19 % (0-9) Eosinophils (%) (Auto) 0 % (0-3) Basophils (%) (Auto) 1 % (0-3) Neutrophils # (Auto) 0.7 x10^3/uL (1.8-7.7) Lymphocytes # (Auto) 0.8 x10^3/uL (1.0-4.8) Monocytes # (Auto) 0.4 x10^3/uL (0.0-1.1) Eosinophils # (Auto) 0.0 x10^3/uL (0.0-0.7) Basophils # (Auto) 0.0 x10^3/uL (0.0-0.2) Sodium Level 143 mmol/L (136-145) Potassium Level 4.3 mmol/L (3.5-5.1) Chloride Level 114 mmol/L (98-107) Carbon Dioxide Level 23 mmol/L (21-32) Anion Gap 6 (6-14) Blood Urea Nitrogen 14 mg/dL (7-20) Creatinine 1.5 mg/dL (0.6-1.0) Estimated GFR (Cockcroft-Gault) 42.9 Glucose Level 81 mg/dL (70-99) Calcium Level 9.5 mg/dL (8.5-10.1) Medications Active Scripts Medications Dose Route/Sig Max Daily Dose Days Date Category Dose Instructions Bisacodyl 10 Mg Supp.rect 10 Mg WI PRN DAILY PRN 30 06/25/20 Rx [place] Saline Nasal Gel (Sodium Chloride/Aloe Vera) 14.1 Gm Gel..gram. 1 Carmen NS PRN DAILY PRN 30 06/25/20 Rx Fluticasone Propionate Nasal Fa[place] (Fluticasone Propionate) 16 Gm Faison.susp 2 Faison NS QHS 30 06/25/20 Rx Amlodipine Besylate 10 Mg Tablet 10 Mg PO DAILY 30 06/25/20 Rx Zofran (Ondansetron Hcl) 4 Mg Tablet 1 Tab PO Q6HRS 06/21/20 Reported Acetaminophen 325 Mg Tablet 650 Mg PO PRN Q6HRS PRN 06/02/20 Reported Combivent Respimat Inhal (Ipratropium/Albuterol Sulfate) 4 Gm Aer.w.adap 2 Inh IH QID 05/24/20 Reported Latuda (Lurasidone Hcl) 20 Mg Tablet 1 Tab PO DAILY 30 05/24/20 Reported Zoloft (Sertraline Hcl) 25 Mg Tablet 1 Tab PO DAILY 11/09/19 Reported Nystatin 15 Gm Powder 1 Carmen TP PRN PRN 7 11/09/19 Reported apply to affected area(s) Miralax (Polyethylene Glycol 3350) 17 Gm Powd.pack 1 Packet PO PRN Q24HRS PRN 2 11/09/19 Reported dissolve in water Miralax (Polyethylene Glycol 3350) 17 Gm Powd.pack 1 Packet PO QMWF 2 11/09/19 Reported dissolve in water Depakote Er (Divalproex Sodium) 500 Mg Tab.er.24h 3 Tab PO QHS 11/09/19 Reported Mylanta Maximum Strength Liq (Mag Hydrox/Aluminum Hyd/Simeth) 355 Ml Oral.susp 30 Ml PO PRN Q4HRS PRN 11/09/19 Reported Risperdal Consta (Risperidone Microspheres) 37.5 Mg/2 Ml Disp.syrin 50 Mg IM Q2WKS 01/03/17 Reported Topamax (Topiramate) 100 Mg Tablet 1 Tab PO BID 01/03/17 Reported Risperdal (Risperidone) 4 Mg Tablet 1 Tab PO BID 01/03/17 Reported Milk Of Magnesia (Magnesium Hydroxide) 400 Mg/5 Ml Oral.susp 30 Ml PO DAILY PRN 01/03/17 Reported Anti-Diarrhea (Loperamide Hcl) 2 Mg Tablet 2 Mg PO PRN 01/03/17 Reported Levothyroxine Sodium 75 Mcg Tablet 1 Tab PO DAILY 01/03/17 Reported Aspirin 81 Mg Tab.chew 1 Tab PO DAILY 01/03/17 Reported Impression . IMPRESSION: 1. Acute hypercapnic respiratory failure of unclear etiology. Reportedly, she is not a smoker. Could be contributed by transient ischemic attack symptoms/ encephalopathy.--improved with BIPAP Cannot exclude the possibility of seizure. CT head with no evidence of any ischemic or hemorrhagic stroke. Not on narcotics. She is currently on BiPAP and her blood gases have improved. 2. Leukopenia and thrombocytopenia. Needs further evaluation. Hematology consultation. 3. No significant tobacco history. 4. Right lower lobe interstitial faint infiltrate. Need to cover for aspiration pneumonia. 5. Mildly increased procalcitonin level. Plan . RECOMMENDATIONS: Continue supplemental oxygen to keep sats above 90%, BiPAP during sleep the importance of use discussed Avoid any sedatives Pt. completed full course of zosyn Follow Neurology recommendations Monitor BUN and creatinine, improved Follow Hematology recs for her thrombocytopenia as well as leukopenia, planned for outpatient bone marrow biopsy in 4 weeks PT/OT Discussed with ALEX CENTENO MD Jul 26, 2020 07:44
[2020-07-26] MEDS: CALCIUM CARBONATE 500 MG TABLET PO SCH ×3 (08:09→17:32)
[2020-07-26] MEDS: LISINOPRIL 5 MG TABLET. PO SCH ×2 (08:09→20:21)
[2020-07-26] MEDS: TOPIRAMATE 100 MG TABLET. PO SCH ×2 (08:09→20:21)
[2020-07-26] MEDS: NYSTATIN TOPICAL POWDER 15GM BOTTLE. TP SCH ×2 (08:10→20:20)
[2020-07-26] MEDS: SERTRALINE 25 MG TABLET. PO SCH (08:10)
[2020-07-26] MEDS: ASPIRIN CHEWABLE 81 MG TABLET. PO SCH (08:10)
[2020-07-26 09:33] LABS: BASO % 1 % (0-3); EOS % 0 % (0-3); HEMATOCRIT 28.9 % (36.0-47.0); HEMOGLOBIN 9.1 g/dL (12.0-15.5); LYMPH # 1.1 x10^3/uL (1.0-4.8); LYMPH % 50 % (24-48); MEAN CORPUSCULAR HEMOGLOBIN 27 pg (25-35); MEAN CORPUSCULAR HGB CONC 32 g/dL (31-37); MEAN CORPUSCULAR VOLUME 87 fL (79-100); MONO # 0.3 x10^3/uL (0.0-1.1); MONO % 15 % (0-9); NEUT # 0.8 x10^3/uL (1.8-7.7); NEUT % 35 % (31-73); PLATELET COUNT 55 x10^3/uL (140-400); RED BLOOD COUNT 3.33 x10^6/uL (3.50-5.40); RED CELL DISTRIBUTION WIDTH 20.3 % (11.5-14.5); WHITE BLOOD COUNT 2.2 x10^3/uL (4.0-11.0)
[2020-07-26 10:31] VITALS: BP 188/72
--- NOTE | 2020-07-26 10:32 | PDOC ---
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 Cardiomegaly with increased bilateral pulmonary opacities and small pleural effusions. // could reflect pulmonary edema vs multifocal pneumonia. BiPAP at nighttime and p.r.n. during the day. Avoid any sedatives. Continue empiric antibiotics. SEVERE, PROFOUND thrombocytopenia PLTS 15K 2 , hematology following ,, thrombocytopenia is most likely reactive secondary to acute illness given normal peripheral smear and haptoglobin uncontrolled htn 07-26, c diff neg Plan: Multiple previous admissions for syncope with psychiatric components over the past months, not requiring antibiotics. HCAP iv zosyn d/c Suspect vasovagal syncope. She has had 3 prior admissions over the past year for similar symptoms, most recently on 06/21/2020. She was recommended outpatient loop recorder. Consultations placed to neurology She has history of chronic leukopenia, previously evaluated by Dr. Calderon with Hematology/Oncology. However she did not follow-up with outpatient work- up., needs BM BX OUTPT Baseline creatinine 1.6 with baseline GFR around 39.8 consistent with CKD 3b IV normal saline Calcium carbonate 3 times daily with meals Resume home medications FEN - Cardiac diet PPX - Lovenox FULL CODE Dispo - inpatient for above heme consult nutrition consult cxr - reviewed begin hydralazine 10 mg po tid 2- d/w rn begin d/c planning if BP CONTROLLED 07-26 History of Present Illness History of Present Illness Patient is a 60-year-old female who is well-known to our service who presents from [facility] by EMS as a code stroke. Per EMS report patient with walking when she suddenly fell onto padded chairs and became unresponsive. Upon EMS arrival she was nodding her head and moaning, with right-sided weakness. Symptoms resolved upon arrival to ED and she was without any focal neurologic deficits. Code stroke initially activated, but after discussion with Dr. Juarez, TPA was not given. Chest x-ray on admission showed faint patchy opacity at the right lung base, consistent with pneumonia. History was obtained through chart review secondary to patient's clinical condition. Will admit patient for further medical management. 07/19: Patient somnolent, difficult to arouse. Denies any questions. Afebrile. Discussed with Dr. Juarez, risks exceed benefit for MRI under general anesthesia. No additional neurological studies needed. Continue treatment for HCAP. Platelets 28, will hold Lovenox. Initiate SCDs. ABG obtained by RT showed elevated PCO2 and concern for CO2 narcosis. Will place on BiPAP and consult pulmonology. 07/20: ABG yesterday showed significant hypercapnia, discussed with RT. Place patient on BiPAP overnight with improvement in PCO2. Consultation was placed to pulmonology. Platelet count 20 today, will hold VTE prophylaxis. She has a noted history of pancytopenia. Procalcitonin mildly elevated. Continue antibiotic treatment for HCAP. She continues to improve on BiPAP she may discharge back to her [facility] sometime early next week to finish oral antibiotic treatment outpatient. 2- PLt'S remain critically low, hematology consulted Place patient on BiPAP overnight with improvement in PCO2. Consultation pulmonology., hematology , neurology Cannot exclude the possibility of seizure.neurology doubts this is likely CT head with no evidence of any ischemic or hemorrhagic stroke. Not on narcotics. 2- PLt'S remain critically low, hematology consulted BiPAP overnight with improvement in PCO2. Consultation pulmonology., hematology , neurology Cannot exclude the possibility of seizure.neurology doubts this is likely CT head with no evidence of any ischemic or hemorrhagic stroke. CBC PENDING TODAY 26 min pt exam, chart review, > 50% of time spent with exam, chart review, pt care coordination D/W RN 2- PLt'S remain critically low, hematology consulted BiPAP overnight with improvement in PCO2. Consultation pulmonology., hematology , neurology Cannot exclude the possibility of seizure.neurology doubts this is likely CT head with no evidence of any ischemic or hemorrhagic stroke. CBC PENDING TODAY 28 min pt exam, chart review, > 50% of time spent with exam, chart review, pt care coordination 2-27 PLt'S remain low, 55 K improving hematology consulted BiPAP overnight with improvement in PCO2. Consultation pulmonology., hematology , neurology (Cannot exclude the possibility of seizure.neurology doubts this is likely) CT head with no evidence of any ischemic or hemorrhagic stroke. 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 General: Somnolent, uncooperative. No acute distress lying in bed on bipap HEENT: PERRLA, EOMI Lungs: Decreased breath sounds bilaterally. Normal air movement Heart: RRR, no murmurs Cardiovascular: S1, S2 Abdomen: Normal bowel sounds, Soft, No tenderness Extremities: 1+ edema bilateral lower extremities. No clubbing, No cyanosis Skin: No rashes, No significant lesion Neuro: normal tone, General: Cooperative, No acute distress Heart: Regular rate Lungs: Clear, Other Abdomen: Normal bowel sounds, Soft, No tenderness Extremities: No clubbing, No cyanosis Skin: No rashes, No breakdown Labs LABS PATIENT: AVI VILLEGAS ACCOUNT: [id number] : 1960 LOCATION: [address] [place] [address] AGE: 60 SEX: F EXAM STATUS: ADM IN ORD. PHYSICIAN: ROGER ALVARADO MD REASON: pneumonia PROCEDURE: CHEST AP ONLY Portable chest x-ray compared to similar exam dated July 21, 2020 for pneu monia. FINDINGS: Lungs are better aerated today, and there is persistent but improved hazy opacification of the right lung base. Appearance of central vascular congestion is improved as well. Heart size remains mildly enlarged. IMPRESSION: 1. Improved aeration and central vascular congestion with persistent right basilar airspace opacity. Electronically signed by: Ricardo Starks MD (07/25/2020 3:45 PM) [id number] DICTATED and SIGNED BY: RICARDO STARKS MD DATE: 07/25/20 [id number] Laboratory Tests Test 07/25/20 12:00 07/25/20 21:15 07/26/20 06:40 07/26/20 09:16 White Blood Count 1.9 x10^3/uL (4.0-11.0) 2.2 x10^3/uL (4.0-11.0) Red Blood Count 2.39 x10^6/uL (3.50-5.40) 3.33 x10^6/uL (3.50-5.40) Hemoglobin 6.4 g/dL (12.0-15.5) 7.8 g/dL (12.0-15.5) 9.1 g/dL (12.0-15.5) Hematocrit 20.6 % (36.0-47.0) 24.9 % (36.0-47.0) 28.9 % (36.0-47.0) Mean Corpuscular Volume 86 fL (79-100) 87 fL (79-100) Mean Corpuscular Hemoglobin 27 pg (25-35) 27 pg (25-35) Mean Corpuscular Hemoglobin Concent 31 g/dL (31-37) 31 g/dL (31-37) 32 g/dL (31-37) Red Cell Distribution Width 21.4 % (11.5-14.5) 20.3 % (11.5-14.5) Platelet Count 51 x10^3/uL (140-400) 55 x10^3/uL (140-400) Neutrophils (%) (Auto) 37 % (31-73) 35 % (31-73) Lymphocytes (%) (Auto) 43 % (24-48) 50 % (24-48) Monocytes (%) (Auto) 19 % (0-9) 15 % (0-9) Eosinophils (%) (Auto) 0 % (0-3) 0 % (0-3) Basophils (%) (Auto) 1 % (0-3) 1 % (0-3) Neutrophils # (Auto) 0.7 x10^3/uL (1.8-7.7) 0.8 x10^3/uL (1.8-7.7) Lymphocytes # (Auto) 0.8 x10^3/uL (1.0-4.8) 1.1 x10^3/uL (1.0-4.8) Monocytes # (Auto) 0.4 x10^3/uL (0.0-1.1) 0.3 x10^3/uL (0.0-1.1) Eosinophils # (Auto) 0.0 x10^3/uL (0.0-0.7) 0.0 x10^3/uL (0.0-0.7) Basophils # (Auto) 0.0 x10^3/uL (0.0-0.2) 0.0 x10^3/uL (0.0-0.2) Sodium Level 143 mmol/L (136-145) Potassium Level 4.3 mmol/L (3.5-5.1) Chloride Level 114 mmol/L (98-107) Carbon Dioxide Level 23 mmol/L (21-32) Anion Gap 6 (6-14) Blood Urea Nitrogen 14 mg/dL (7-20) Creatinine 1.5 mg/dL (0.6-1.0) Estimated GFR (Cockcroft-Gault) 42.9 Glucose Level 81 mg/dL (70-99) Calcium Level 9.5 mg/dL (8.5-10.1) Assessment and Plan Assessmemt and Plan Problems Medical Problems: (1) PNA (pneumonia) Status: Acute Comment Review of Relevant I have reviewed the following items bianca (where applicable) has been applied. Labs Laboratory Tests Test 07/25/20 05:00 07/25/20 12:00 07/25/20 21:15 07/26/20 06:40 Clostridium difficile Toxin (PCR) Negative (NEGATIVE) White Blood Count 1.9 x10^3/uL (4.0-11.0) Red Blood Count 2.39 x10^6/uL (3.50-5.40) Hemoglobin 6.4 g/dL (12.0-15.5) 7.8 g/dL (12.0-15.5) Hematocrit 20.6 % (36.0-47.0) 24.9 % (36.0-47.0) Mean Corpuscular Volume 86 fL (79-100) Mean Corpuscular Hemoglobin 27 pg (25-35) Mean Corpuscular Hemoglobin Concent 31 g/dL (31-37) 31 g/dL (31-37) Red Cell Distribution Width 21.4 % (11.5-14.5) Platelet Count 51 x10^3/uL (140-400) Neutrophils (%) (Auto) 37 % (31-73) Lymphocytes (%) (Auto) 43 % (24-48) Monocytes (%) (Auto) 19 % (0-9) Eosinophils (%) (Auto) 0 % (0-3) Basophils (%) (Auto) 1 % (0-3) Neutrophils # (Auto) 0.7 x10^3/uL (1.8-7.7) Lymphocytes # (Auto) 0.8 x10^3/uL (1.0-4.8) Monocytes # (Auto) 0.4 x10^3/uL (0.0-1.1) Eosinophils # (Auto) 0.0 x10^3/uL (0.0-0.7) Basophils # (Auto) 0.0 x10^3/uL (0.0-0.2) Sodium Level 143 mmol/L (136-145) Potassium Level 4.3 mmol/L (3.5-5.1) Chloride Level 114 mmol/L (98-107) Carbon Dioxide Level 23 mmol/L (21-32) Anion Gap 6 (6-14) Blood Urea Nitrogen 14 mg/dL (7-20) Creatinine 1.5 mg/dL (0.6-1.0) Estimated GFR (Cockcroft-Gault) 42.9 Glucose Level 81 mg/dL (70-99) Calcium Level 9.5 mg/dL (8.5-10.1) Test 07/26/20 09:16 White Blood Count 2.2 x10^3/uL (4.0-11.0) Red Blood Count 3.33 x10^6/uL (3.50-5.40) Hemoglobin 9.1 g/dL (12.0-15.5) Hematocrit 28.9 % (36.0-47.0) Mean Corpuscular Volume 87 fL (79-100) Mean Corpuscular Hemoglobin 27 pg (25-35) Mean Corpuscular Hemoglobin Concent 32 g/dL (31-37) Red Cell Distribution Width 20.3 % (11.5-14.5) Platelet Count 55 x10^3/uL (140-400) Neutrophils (%) (Auto) 35 % (31-73) Lymphocytes (%) (Auto) 50 % (24-48) Monocytes (%) (Auto) 15 % (0-9) Eosinophils (%) (Auto) 0 % (0-3) Basophils (%) (Auto) 1 % (0-3) Neutrophils # (Auto) 0.8 x10^3/uL (1.8-7.7) Lymphocytes # (Auto) 1.1 x10^3/uL (1.0-4.8) Monocytes # (Auto) 0.3 x10^3/uL (0.0-1.1) Eosinophils # (Auto) 0.0 x10^3/uL (0.0-0.7) Basophils # (Auto) 0.0 x10^3/uL (0.0-0.2) Laboratory Tests Test 07/25/20 12:00 07/25/20 21:15 07/26/20 06:40 07/26/20 09:16 White Blood Count 1.9 x10^3/uL (4.0-11.0) 2.2 x10^3/uL (4.0-11.0) Red Blood Count 2.39 x10^6/uL (3.50-5.40) 3.33 x10^6/uL (3.50-5.40) Hemoglobin 6.4 g/dL (12.0-15.5) 7.8 g/dL (12.0-15.5) 9.1 g/dL (12.0-15.5) Hematocrit 20.6 % (36.0-47.0) 24.9 % (36.0-47.0) 28.9 % (36.0-47.0) Mean Corpuscular Volume 86 fL (79-100) 87 fL (79-100) Mean Corpuscular Hemoglobin 27 pg (25-35) 27 pg (25-35) Mean Corpuscular Hemoglobin Concent 31 g/dL (31-37) 31 g/dL (31-37) 32 g/dL (31-37) Red Cell Distribution Width 21.4 % (11.5-14.5) 20.3 % (11.5-14.5) Platelet Count 51 x10^3/uL (140-400) 55 x10^3/uL (140-400) Neutrophils (%) (Auto) 37 % (31-73) 35 % (31-73) Lymphocytes (%) (Auto) 43 % (24-48) 50 % (24-48) Monocytes (%) (Auto) 19 % (0-9) 15 % (0-9) Eosinophils (%) (Auto) 0 % (0-3) 0 % (0-3) Basophils (%) (Auto) 1 % (0-3) 1 % (0-3) Neutrophils # (Auto) 0.7 x10^3/uL (1.8-7.7) 0.8 x10^3/uL (1.8-7.7) Lymphocytes # (Auto) 0.8 x10^3/uL (1.0-4.8) 1.1 x10^3/uL (1.0-4.8) Monocytes # (Auto) 0.4 x10^3/uL (0.0-1.1) 0.3 x10^3/uL (0.0-1.1) Eosinophils # (Auto) 0.0 x10^3/uL (0.0-0.7) 0.0 x10^3/uL (0.0-0.7) Basophils # (Auto) 0.0 x10^3/uL (0.0-0.2) 0.0 x10^3/uL (0.0-0.2) Sodium Level 143 mmol/L (136-145) Potassium Level 4.3 mmol/L (3.5-5.1) Chloride Level 114 mmol/L (98-107) Carbon Dioxide Level 23 mmol/L (21-32) Anion Gap 6 (6-14) Blood Urea Nitrogen 14 mg/dL (7-20) Creatinine 1.5 mg/dL (0.6-1.0) Estimated GFR (Cockcroft-Gault) 42.9 Glucose Level 81 mg/dL (70-99) Calcium Level 9.5 mg/dL (8.5-10.1) Medications Current Medications Iohexol (Omnipaque 300 Mg/ml) 75 ml 1X ONCE IV Last administered on 07/18/20at 10:15; Start 07/18/20 at 10:15; Stop 07/18/20 at 10:16; Status DC Ceftriaxone Sodium (Rocephin) 1 gm 1X ONCE IVP Last administered on 07/18/20at 17:06; Start 07/18/20 at 12:00; Stop 07/18/20 at 12:01; Status DC Calcium Carbonate/ Glycine (Oscal) 500 mg TIDAFTMEAL PO Last administered on 07/26/20at 08:09; Start 07/18/20 at 18:00 Amlodipine Besylate (Norvasc) 10 mg DAILY PO Last administered on 07/26/20 08:10; Start 07/19/20 at 09:00 Aspirin (Aspirin Chewable) 81 mg DAILY PO Last administered on 07/26/20at 08:10; Start 07/19/20 at 09:00 Bisacodyl (Dulcolax Supp) 10 mg PRN DAILY PRN [place] CONSTIPATION; Start 07/18/20 at 15:45 Divalproex Sodium (Depakote Er) 1,500 mg QHS PO Last administered on 07/25/20at 21:51; Start 07/18/20 at 21:00 Fluticasone Propionate (Flonase) 2 spray QHS NS Last administered on 07/25/20at 21:51; Start 07/18/20 at 21:00 Levothyroxine Sodium (Synthroid) 75 mcg DAILY06 PO Last administered on 07/26/20at 06:12; Start 07/19/20 at 06:00 Polyethylene Glycol (miraLAX PACKET) 17 gm PRN Q24HRS PRN PO CONSTIPATION; Start 07/18/20 at 15:45 Sertraline HCl (Zoloft) 25 mg DAILY PO Last administered on 07/26/20at 08:10; Start 07/19/20 at 09:00 Topiramate (Topamax) 100 mg BID PO Last administered on 07/26/20 08:09; Start 07/18/20 at 21:00 Albuterol/ Ipratropium (Duoneb) 3 ml RTQID NEB Last administered on 07/26/20 07:31; Start 07/18/20 at 16:00 Piperacillin Sod/ Tazobactam Sod (Zosyn Per Pharmacy) 1 each PRN DAILY PRN MC SEE COMMENTS; Start 07/18/20 at 15:45; Stop 07/24/20 at 10:36; Status DC Sodium Chloride 1,000 ml @ 45 mls/hr [id number] IV Last administered on 07/24/20at 16:50; Start 07/18/20 at 17:00 Ondansetron HCl (Zofran) 4 mg PRN Q6HRS PRN IVP NAUSEA/VOMITING; Start 07/18/20 at 16:00 Al Hydroxide/Mg Hydroxide (Mylanta Plus Xs) 30 ml PRN Q3HRS PRN PO HEARTBURN / GAS; Start 07/18/20 at 16:00 Calcium Carbonate/ Glycine (Tums) 500 mg PRN Q3HRS PRN PO UPSET STOMACH; Start 07/18/20 at 16:00 Zolpidem Tartrate (Ambien) 5 mg PRN QHS PRN PO INSOMNIA, MAY REPEAT IN 1HR Last administered on 07/22/20at 21:53; Start 07/18/20 at 16:00 Acetaminophen/ Hydrocodone Bitart (Lortab 5/325) 1 tab PRN Q4HRS PRN PO MILD PAIN 1-3; Start 07/18/20 at 16:00 Acetaminophen (Tylenol) 650 mg PRN Q6HRS PRN PO Headaches, Temp > 101.5F; Start 07/18/20 at 16:00 Enoxaparin Sodium (Lovenox 40mg Syringe) 40 mg Q24H SQ Last administered on 07/18/20at 20:07; Start 07/18/20 at 21:00; Stop 07/19/20 at 15:38; Status DC Piperacillin Sod/ Tazobactam Sod 3.375 gm/Sodium Chloride 50 ml @ 100 mls/hr Q6HRS IV Last administered on 07/24/20at 06:05; Start 07/18/20 at 18:00; Stop 07/24/20 at 10:36; Status DC Labetalol HCl (Normodyne Iv Push) 20 mg PRN Q2HR PRN IVP HYPERTENSION Last administered on 07/25/20at 19:42; Start 07/20/20 at 03:30 Nystatin (Nystop) 1 carmen BID TP Last administered on 07/26/20at 08:10; Start 07/22/20 at 00:00 Lisinopril (Prinivil) 2.5 mg BID PO Last administered on 07/26/20at 08:09; St art 07/23/20 at 12:00 Active Scripts Active Bisacodyl 10 Mg Supp.rect 10 Mg AK PRN DAILY PRN 30 Days [place] Saline Nasal Gel (Sodium Chloride/Aloe Vera) 14.1 Gm Gel..gram. 1 Carmen NS PRN DAILY PRN 30 Days Fluticasone Propionate Nasal [place] (Fluticasone Propionate) 16 Gm [place].susp 2 [place] NS QHS 30 Days Amlodipine Besylate 10 Mg Tablet 10 Mg PO DAILY 30 Days Reported Zofran (Ondansetron Hcl) 4 Mg Tablet 1 Tab PO Q6HRS Acetaminophen 325 Mg Tablet 650 Mg PO PRN Q6HRS PRN Combivent Respimat Inhal (Ipratropium/Albuterol Sulfate) 4 Gm Aer.w.adap 2 Inh IH QID Latuda (Lurasidone Hcl) 20 Mg Tablet 1 Tab PO DAILY 30 Days Zoloft (Sertraline Hcl) 25 Mg Tablet 1 Tab PO DAILY Nystatin 15 Gm Powder 1 Carmen TP PRN PRN 7 Days apply to affected area(s) Miralax (Polyethylene Glycol 3350) 17 Gm Powd.pack 1 Packet PO PRN Q24HRS PRN 2 Days dissolve in water Miralax (Polyethylene Glycol 3350) 17 Gm Powd.pack 1 Packet PO QMWF 2 Days dissolve in water Depakote Er (Divalproex Sodium) 500 Mg Tab.er.24h 3 Tab PO QHS Mylanta Maximum Strength Liq (Mag Hydrox/Aluminum Hyd/Simeth) 355 Ml Oral.susp 30 Ml PO PRN Q4HRS PRN Risperdal Consta (Risperidone Microspheres) 37.5 Mg/2 Ml Disp.syrin 50 Mg IM Q2WKS Topamax (Topiramate) 100 Mg Tablet 1 Tab PO BID Risperdal (Risperidone) 4 Mg Tablet 1 Tab PO BID Milk Of Magnesia (Magnesium Hydroxide) 400 Mg/5 Ml Oral.susp 30 Ml PO DAILY PRN Anti-Diarrhea (Loperamide Hcl) 2 Mg Tablet 2 Mg PO PRN Levothyroxine Sodium 75 Mcg Tablet 1 Tab PO DAILY Aspirin 81 Mg Tab.chew 1 Tab PO DAILY Vitals/I & O Vital Sign - Last 24 Hours 07/25/20 07/25/20 07/25/20 07/25/20 11:00 11:34 14:46 14:57 Temp 98.5 97.6 97.8 98.5 97.6 97.8 Pulse 82 74 82 Resp 20 20 20 B/P (MAP) 182/71 (108) 183/90 168/83 Pulse Ox 93 96 O2 Delivery Nasal Cannula Nasal Cannula O2 Flow Rate 2.0 1.0 07/25/20 07/25/20 07/25/20 07/25/20 14:58 15:02 15:56 15:59 Temp 97.8 97.6 98.0 97.8 97.6 98.0 Pulse 82 69 85 Resp B/P (MAP) 168/83 (111) 172/75 148/92 Pulse Ox 97 97 O2 Delivery Nasal Cannula Room Air O2 Flow Rate 1.0 07/25/20 07/25/20 07/25/20 07/25/20 16:37 16:48 19:21 19:26 Temp 97.8 98.0 99.3 97.8 98.0 99.3 Pulse 88 72 89 Resp 16 B/P (MAP) 167/73 154/81 198/85 (122) Pulse Ox 98 96 O2 Delivery Room Air Room Air 07/25/20 07/25/20 07/25/20 07/25/20 19:42 20:14 21:52 23:00 Temp 98.4 98.4 Pulse 86 79 79 Resp 24 B/P (MAP) 203/91 186/87 185/86 (119) Pulse Ox 100 O2 Delivery Room Air BiPAP/CPAP 07/26/20 07/26/20 07/26/20 07/26/20 00:54 02:00 07:32 07:33 Temp 97.7 97.7 Pulse 81 91 Resp 24 24 B/P (MAP) 140/88 (105) 199/87 (124) Pulse Ox 98 99 93 99 O2 Delivery BiPAP/CPAP BiPAP/CPAP Nasal Cannula O2 Flow Rate 3.0 2.5 07/26/20 07/26/20 07/26/20 07/26/20 08:00 08:09 08:10 10:31 Temp 97.9 97.9 Pulse 91 91 73 Resp 18 B/P (MAP) 199/87 199/87 188/72 (110) Pulse Ox 100 O2 Delivery Nasal Cannula Nasal Cannula O2 Flow Rate 3.0 3.0 Intake and Output 07/25/20 07/25/20 07/26/20 15:00 23:00 07:00 Intake Total 732 ml 300 ml 540 ml Output Total 550 ml Balance 732 ml 300 ml -10 ml Justicifation of Admission Dx: Justifications for Admission: Justification of Admission Dx: Yes Altered Mental Status: Altered Mental Status ROGER ALVARADO MD Jul 26, 2020 10:32
[2020-07-26] MEDS: hydrALAZINE 10 MG TABLET PO SCH ×2 (13:20→20:21)
[2020-07-26 14:39] VITALS: BP 129/65
[2020-07-26 19:35] VITALS: BP 194/82
[2020-07-26] MEDS: FLUTICASONE 50MCG/NASAL SPRAY 16GM BOTTLE. NS SCH (20:20)
[2020-07-26] MEDS: DIVALPROEX EXTENDED RELEASE 500 MG TAB.ER.24H. PO SCH (20:22)
[2020-07-26 22:41] VITALS: BP 200/94
[2020-07-26] MEDS: LABETALOL 20 MG/4 ML DISP.SYRIN. IVP PRN (22:48)
[2020-07-27 03:00] VITALS: BP 180/69
[2020-07-27] MEDS: LABETALOL 20 MG/4 ML DISP.SYRIN. IVP PRN (04:14)
[2020-07-27] MEDS: LEVOTHYROXINE 75 MCG TABLET PO SCH (05:18)
[2020-07-27 07:00] VITALS: BP 191/92
[2020-07-27] MEDS: IPRATRPIUM/ALBUTEROL 0.5/2.5MG 3 ML NEBU. NEB SCH ×2 (07:28→11:12)
--- NOTE | 2020-07-27 07:58 | PDOC ---
PULMONARY PROGRESS NOTES DATE: 07/27/20 TIME: 07:57 Subjective Pt. is on 3liter N/C oxygen used BiPAP last night S/P platelet transfusion No other concerns from nursing Vitals Vital Signs Date Time Temp Pulse Resp B/P (MAP) Pulse Ox O2 Delivery O2 Flow Rate FiO2 07/27/20 07:36 Room Air 07/27/20 07:30 98 1.0 07/27/20 07:00 97.6 79 24 191/92 (125) 97.6 ROS: No Nausea, No Chest Pain, No Abdominal Pain, No Increase Cough General: Alert Lungs: Clear, Other Cardiovascular: S1, S2 Abdomen: Soft Neuro Exam: Alert Skin: Warm Labs Laboratory Tests Test 07/25/20 12:00 07/25/20 21:15 07/26/20 06:40 07/26/20 09:16 White Blood Count 1.9 x10^3/uL (4.0-11.0) 2.2 x10^3/uL (4.0-11.0) Red Blood Count 2.39 x10^6/uL (3.50-5.40) 3.33 x10^6/uL (3.50-5.40) Hemoglobin 6.4 g/dL (12.0-15.5) 7.8 g/dL (12.0-15.5) 9.1 g/dL (12.0-15.5) Hematocrit 20.6 % (36.0-47.0) 24.9 % (36.0-47.0) 28.9 % (36.0-47.0) Mean Corpuscular Volume 86 fL (79-100) 87 fL (79-100) Mean Corpuscular Hemoglobin 27 pg (25-35) 27 pg (25-35) Mean Corpuscular Hemoglobin Concent 31 g/dL (31-37) 31 g/dL (31-37) 32 g/dL (31-37) Red Cell Distribution Width 21.4 % (11.5-14.5) 20.3 % (11.5-14.5) Platelet Count 51 x10^3/uL (140-400) 55 x10^3/uL (140-400) Neutrophils (%) (Auto) 37 % (31-73) 35 % (31-73) Lymphocytes (%) (Auto) 43 % (24-48) 50 % (24-48) Monocytes (%) (Auto) 19 % (0-9) 15 % (0-9) Eosinophils (%) (Auto) 0 % (0-3) 0 % (0-3) Basophils (%) (Auto) 1 % (0-3) 1 % (0-3) Neutrophils # (Auto) 0.7 x10^3/uL (1.8-7.7) 0.8 x10^3/uL (1.8-7.7) Lymphocytes # (Auto) 0.8 x10^3/uL (1.0-4.8) 1.1 x10^3/uL (1.0-4.8) Monocytes # (Auto) 0.4 x10^3/uL (0.0-1.1) 0.3 x10^3/uL (0.0-1.1) Eosinophils # (Auto) 0.0 x10^3/uL (0.0-0.7) 0.0 x10^3/uL (0.0-0.7) Basophils # (Auto) 0.0 x10^3/uL (0.0-0.2) 0.0 x10^3/uL (0.0-0.2) Sodium Level 143 mmol/L (136-145) Potassium Level 4.3 mmol/L (3.5-5.1) Chloride Level 114 mmol/L (98-107) Carbon Dioxide Level 23 mmol/L (21-32) Anion Gap 6 (6-14) Blood Urea Nitrogen 14 mg/dL (7-20) Creatinine 1.5 mg/dL (0.6-1.0) Estimated GFR (Cockcroft-Gault) 42.9 Glucose Level 81 mg/dL (70-99) Calcium Level 9.5 mg/dL (8.5-10.1) Laboratory Tests Test 07/26/20 09:16 White Blood Count 2.2 x10^3/uL (4.0-11.0) Red Blood Count 3.33 x10^6/uL (3.50-5.40) Hemoglobin 9.1 g/dL (12.0-15.5) Hematocrit 28.9 % (36.0-47.0) Mean Corpuscular Volume 87 fL (79-100) Mean Corpuscular Hemoglobin 27 pg (25-35) Mean Corpuscular Hemoglobin Concent 32 g/dL (31-37) Red Cell Distribution Width 20.3 % (11.5-14.5) Platelet Count 55 x10^3/uL (140-400) Neutrophils (%) (Auto) 35 % (31-73) Lymphocytes (%) (Auto) 50 % (24-48) Monocytes (%) (Auto) 15 % (0-9) Eosinophils (%) (Auto) 0 % (0-3) Basophils (%) (Auto) 1 % (0-3) Neutrophils # (Auto) 0.8 x10^3/uL (1.8-7.7) Lymphocytes # (Auto) 1.1 x10^3/uL (1.0-4.8) Monocytes # (Auto) 0.3 x10^3/uL (0.0-1.1) Eosinophils # (Auto) 0.0 x10^3/uL (0.0-0.7) Basophils # (Auto) 0.0 x10^3/uL (0.0-0.2) Medications Active Scripts Medications Dose Route/Sig Max Daily Dose Days Date Category Dose Instructions Bisacodyl 10 Mg Supp.rect 10 Mg [place] PRN DAILY PRN 30 06/25/20 Rx [place] Saline Nasal Gel (Sodium Chloride/Aloe Vera) 14.1 Gm Gel..gram. 1 Carmen NS PRN DAILY PRN 30 06/25/20 Rx Fluticasone Propionate Nasal [place] (Fluticasone Propionate) 16 Gm Sunflower.susp 2 Sunflower NS QHS 30 06/25/20 Rx Amlodipine Besylate 10 Mg Tablet 10 Mg PO DAILY 30 06/25/20 Rx Zofran (Ondansetron Hcl) 4 Mg Tablet 1 Tab PO Q6HRS 06/21/20 Reported Acetaminophen 325 Mg Tablet 650 Mg PO PRN Q6HRS PRN 06/02/20 Reported Combivent Respimat Inhal (Ipratropium/Albuterol Sulfate) 4 Gm Aer.w.adap 2 Inh IH QID 05/24/20 Reported Latuda (Lurasidone Hcl) 20 Mg Tablet 1 Tab PO DAILY 30 05/24/20 Reported Zoloft (Sertraline Hcl) 25 Mg Tablet 1 Tab PO DAILY 6/12/20 Reported Nystatin 15 Gm Powder 1 Carmen TP PRN PRN 7 11/09/19 Reported apply to affected area(s) Miralax (Polyethylene Glycol 3350) 17 Gm Powd.pack 1 Packet PO PRN Q24HRS PRN 2 11/09/19 Reported dissolve in water Miralax (Polyethylene Glycol 3350) 17 Gm Powd.pack 1 Packet PO QMWF 2 11/09/19 Reported dissolve in water Depakote Er (Divalproex Sodium) 500 Mg Tab.er.24h 3 Tab PO QHS 11/09/19 Reported Mylanta Maximum Strength Liq (Mag Hydrox/Aluminum Hyd/Simeth) 355 Ml Oral.susp 30 Ml PO PRN Q4HRS PRN 11/09/19 Reported Risperdal Consta (Risperidone Microspheres) 37.5 Mg/2 Ml Disp.syrin 50 Mg IM Q2WKS 01/03/17 Reported Topamax (Topiramate) 100 Mg Tablet 1 Tab PO BID 01/03/17 Reported Risperdal (Risperidone) 4 Mg Tablet 1 Tab PO BID 01/03/17 Reported Milk Of Magnesia (Magnesium Hydroxide) 400 Mg/5 Ml Oral.susp 30 Ml PO DAILY PRN 01/03/17 Reported Anti-Diarrhea (Loperamide Hcl) 2 Mg Tablet 2 Mg PO PRN 01/03/17 Reported Levothyroxine Sodium 75 Mcg Tablet 1 Tab PO DAILY 01/03/17 Reported Aspirin 81 Mg Tab.chew 1 Tab PO DAILY 01/03/17 Reported Impression . IMPRESSION: 1. Acute hypercapnic respiratory failure of unclear etiology. Reportedly, she is not a smoker. Could be contributed by transient ischemic attack symptoms/ encephalopathy.--improved with BIPAP Cannot exclude the possibility of seizure. CT head with no evidence of any ischemic or hemorrhagic stroke. Not on narcotics. 2. Leukopenia and thrombocytopenia. Needs further evaluation. Hematology on case 3. No significant tobacco history. 4. Right lower lobe interstitial faint infiltrate. Need to cover for aspiration pneumonia. 5. Mildly increased procalcitonin level. 6. obesity ? zoie Plan . RECOMMENDATIONS: Continue supplemental oxygen to keep sats above 90%, 6 min walk at dc BiPAP during sleep the importance of use discussed Avoid any sedatives Pt. completed full course of zosyn Follow Neurology recommendations Monitor BUN and creatinine, improved Follow Hematology recs for her thrombocytopenia as well as leukopenia, planned for outpatient bone marrow biopsy in 4 weeks PT/OT increase activity consider psg as out pt Discussed with ALEX CENTENO MD Jul 27, 2020 07:58
[2020-07-27] MEDS: CALCIUM CARBONATE 500 MG TABLET PO SCH ×2 (08:21→13:00)
[2020-07-27] MEDS: TOPIRAMATE 100 MG TABLET. PO SCH (08:21)
[2020-07-27] MEDS: LISINOPRIL 5 MG TABLET. PO SCH (08:21)
[2020-07-27] MEDS: SERTRALINE 25 MG TABLET. PO SCH (08:22)
[2020-07-27] MEDS: ASPIRIN CHEWABLE 81 MG TABLET. PO SCH (08:22)
[2020-07-27] MEDS: hydrALAZINE 10 MG TABLET PO SCH (08:22)
[2020-07-27] MEDS: NYSTATIN TOPICAL POWDER 15GM BOTTLE. TP SCH (08:37)
--- NOTE | 2020-07-27 10:20 | PDOC ---
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 Cardiomegaly with increased bilateral pulmonary opacities and small pleural effusions. // could reflect pulmonary edema vs multifocal pneumonia. BiPAP at nighttime and p.r.n. during the day. Avoid any sedatives. Continue empiric antibiotics. SEVERE, PROFOUND thrombocytopenia PLTS 15K 2-23 , hematology following ,, thrombocytopenia is most likely reactive secondary to acute illness given normal peripheral smear and haptoglobin uncontrolled htn 2-, c diff neg Plan: Multiple previous admissions for syncope with psychiatric components over the past months, not requiring antibiotics. HCAP iv zosyn d/c Suspect vasovagal syncope. She has had 3 prior admissions over the past year for similar symptoms, most recently on 06/21/2020. She was recommended outpatient loop recorder. Consultations placed to neurology She has history of chronic leukopenia, previously evaluated by Dr. Calderon with Hematology/Oncology. However she did not follow-up with outpatient work- up., needs BM BX OUTPT Baseline creatinine 1.6 with baseline GFR around 39.8 consistent with CKD 3b IV normal saline Calcium carbonate 3 times daily with meals Resume home medications FEN - Cardiac diet PPX - Lovenox FULL CODE Dispo - inpatient for above heme consult nutrition consult cxr 2-26 reviewed begin hydralazine 25 mg po tid 2-28 d/w rn begin d/c planning if BP CONTROLLED 2-28 d/c planning 33 min History of Present Illness History of Present Illness Patient is a 60-year-old female who is well-known to our service who presents from [facility] by EMS as a code stroke. Per EMS report patient with walking when she suddenly fell onto padded chairs and became unresponsive. Upon EMS arrival she was nodding her head and moaning, with right-sided weakness. Symptoms resolved upon arrival to ED and she was without any focal neurologic deficits. Code stroke initially activated, but after discussion with Dr. Juarez, TPA was not given. Chest x-ray on admission showed faint patchy opacity at the right lung base, consistent with pneumonia. History was obtained through chart review secondary to patient's clinical condition. Will admit patient for further medical management. 07/19: Patient somnolent, difficult to arouse. Denies any questions. Afebrile. Discussed with Dr. Juarez, risks exceed benefit for MRI under general anesthesia. No additional neurological studies needed. Continue treatment for HCAP. Platelets 28, will hold Lovenox. Initiate SCDs. ABG obtained by RT showed elevated PCO2 and concern for CO2 narcosis. Will place on BiPAP and consult pulmonology. 07/20: ABG yesterday showed significant hypercapnia, discussed with RT. Place patient on BiPAP overnight with improvement in PCO2. Consultation was placed to pulmonology. Platelet count 20 today, will hold VTE prophylaxis. She has a noted history of pancytopenia. Procalcitonin mildly elevated. Continue antibiotic treatment for HCAP. She continues to improve on BiPAP she may discharge back to her intermediate sometime early next week to finish oral antibiotic treatment outpatient. 2- PLt'S remain critically low, hematology consulted Place patient on BiPAP overnight with improvement in PCO2. Consultation pulmonology., hematology , neurology Cannot exclude the possibility of seizure.neurology doubts this is likely CT head with no evidence of any ischemic or hemorrhagic stroke. Not on narcotics. 2- PLt'S remain critically low, hematology consulted BiPAP overnight with improvement in PCO2. Consultation pulmonology., hematology , neurology Cannot exclude the possibility of seizure.neurology doubts this is likely CT head with no evidence of any ischemic or hemorrhagic stroke. CBC PENDING TODAY 26 min pt exam, chart review, > 50% of time spent with exam, chart review, pt care coordination D/W RN 2- PLt'S remain critically low, hematology consulted BiPAP overnight with improvement in PCO2. Consultation pulmonology., hematology , neurology Cannot exclude the possibility of seizure.neurology doubts this is likely CT head with no evidence of any ischemic or hemorrhagic stroke. CBC PENDING TODAY 28 min pt exam, chart review, > 50% of time spent with exam, chart review, pt care coordination 2-27 PLt'S remain low, 55 K improving hematology consulted BiPAP overnight with improvement in PCO2. Consultation pulmonology., hematology , neurology (Cannot exclude the possibility of seizure.neurology doubts this is likely) CT head with no evidence of any ischemic or hemorrhagic stroke. CBC better plts stable POST transfusion need DPOA TO ADDRESS intermediate project manager goals begin d/c planning to ely for , d/w nursing scientific laboratory supervisor 07-27 bp now 146/78 c diff neg PLt'S remain low, 55 K improving hematology consulted BiPAP overnight with improvement in PCO2. Consultation pulmonology., hematology , neurology (Cannot exclude the possibility of seizure.neurology doubts this is likely) CT head with no evidence of any ischemic or hemorrhagic stroke. CBC better plts stable POST transfusion need DPOA TO ADDRESS intermediate project manager goals begin d/c planning to ely for , d/w nursing scientific laboratory supervisor Vitals Vitals Vital Signs Date Time Temp Pulse Resp B/P (MAP) Pulse Ox O2 Delivery O2 Flow Rate FiO2 07/27/20 08:22 79 191/92 07/27/20 07:36 Room Air 07/27/20 07:30 98 1.0 07/27/20 07:00 97.6 24 97.6 Physical Exam Physical Exam MITTS off eating lunch inappropriate laughing. General: Somnolent, uncooperative. No acute distress lying in bed on bipap HEENT: PERRLA, EOMI Lungs: Decreased breath sounds bilaterally. Normal air movement Heart: RRR, no murmurs Cardiovascular: S1, S2 Abdomen: Normal bowel sounds, Soft, No tenderness Extremities: 1+ edema bilateral lower extremities. No clubbing, No cyanosis Skin: No rashes, No significant lesion Neuro: normal tone, General: Alert, Cooperative, No acute distress Heart: Regular rate Lungs: Clear, Other (diminished) Abdomen: Normal bowel sounds, Soft, No tenderness Extremities: No clubbing, No cyanosis Skin: No rashes, No breakdown Assessment and Plan Assessmemt and Plan Problems Medical Problems: (1) PNA (pneumonia) Status: Acute Comment Review of Relevant I have reviewed the following items bianca (where applicable) has been applied. Labs Laboratory Tests Test 07/25/20 12:00 07/25/20 21:15 07/26/20 06:40 07/26/20 09:16 White Blood Count 1.9 x10^3/uL (4.0-11.0) 2.2 x10^3/uL (4.0-11.0) Red Blood Count 2.39 x10^6/uL (3.50-5.40) 3.33 x10^6/uL (3.50-5.40) Hemoglobin 6.4 g/dL (12.0-15.5) 7.8 g/dL (12.0-15.5) 9.1 g/dL (12.0-15.5) Hematocrit 20.6 % (36.0-47.0) 24.9 % (36.0-47.0) 28.9 % (36.0-47.0) Mean Corpuscular Volume 86 fL (79-100) 87 fL (79-100) Mean Corpuscular Hemoglobin 27 pg (25-35) 27 pg (25-35) Mean Corpuscular Hemoglobin Concent 31 g/dL (31-37) 31 g/dL (31-37) 32 g/dL (31-37) Red Cell Distribution Width 21.4 % (11.5-14.5) 20.3 % (11.5-14.5) Platelet Count 51 x10^3/uL (140-400) 55 x10^3/uL (140-400) Neutrophils (%) (Auto) 37 % (31-73) 35 % (31-73) Lymphocytes (%) (Auto) 43 % (24-48) 50 % (24-48) Monocytes (%) (Auto) 19 % (0-9) 15 % (0-9) Eosinophils (%) (Auto) 0 % (0-3) 0 % (0-3) Basophils (%) (Auto) 1 % (0-3) 1 % (0-3) Neutrophils # (Auto) 0.7 x10^3/uL (1.8-7.7) 0.8 x10^3/uL (1.8-7.7) Lymphocytes # (Auto) 0.8 x10^3/uL (1.0-4.8) 1.1 x10^3/uL (1.0-4.8) Monocytes # (Auto) 0.4 x10^3/uL (0.0-1.1) 0.3 x10^3/uL (0.0-1.1) Eosinophils # (Auto) 0.0 x10^3/uL (0.0-0.7) 0.0 x10^3/uL (0.0-0.7) Basophils # (Auto) 0.0 x10^3/uL (0.0-0.2) 0.0 x10^3/uL (0.0-0.2) Sodium Level 143 mmol/L (136-145) Potassium Level 4.3 mmol/L (3.5-5.1) Chloride Level 114 mmol/L (98-107) Carbon Dioxide Level 23 mmol/L (21-32) Anion Gap 6 (6-14) Blood Urea Nitrogen 14 mg/dL (7-20) Creatinine 1.5 mg/dL (0.6-1.0) Estimated GFR (Cockcroft-Gault) 42.9 Glucose Level 81 mg/dL (70-99) Calcium Level 9.5 mg/dL (8.5-10.1) Medications Current Medications Iohexol (Omnipaque 300 Mg/ml) 75 ml 1X ONCE IV Last administered on 07/18/20at 10:15; Start 07/18/20 at 10:15; Stop 07/18/20 at 10:16; Status DC Ceftriaxone Sodium (Rocephin) 1 gm 1X ONCE IVP Last administered on 07/18/20at 17:06; Start 07/18/20 at 12:00; Stop 07/18/20 at 12:01; Status DC Calcium Carbonate/ Glycine (Oscal) 500 mg TIDAFTMEAL PO Last administered on 07/27/20at 08:21; Start 07/18/20 at 18:00 Amlodipine Besylate (Norvasc) 10 mg DAILY PO Last administered on 07/27/20at 08:21; Start 07/19/20 at 09:00 Aspirin (Aspirin Chewable) 81 mg DAILY PO Last administered on 07/27/20at 08:22; Start 07/19/20 at 09:00 Bisacodyl (Dulcolax Supp) 10 mg PRN DAILY PRN SC CONSTIPATION; Start 07/18/20 at 15:45 Divalproex Sodium (Depakote Er) 1,500 mg QHS PO Last administered on 07/26/20at 20:22; Start 07/18/20 at 21:00 Fluticasone Propionate (Flonase) 2 spray QHS NS Last administered on 07/26/20at 20:20; Start 07/18/20 at 21:00 Levothyroxine Sodium (Synthroid) 75 mcg DAILY06 PO Last administered on 07/27/20at 05:18; Start 07/19/20 at 06:00 Polyethylene Glycol (miraLAX PACKET) 17 gm PRN Q24HRS PRN PO CONSTIPATION; Start 07/18/20 at 15:45 Sertraline HCl (Zoloft) 25 mg DAILY PO Last administered on 07/27/20at 08:22; Start 07/19/20 at 09:00 Topiramate (Topamax) 100 mg BID PO Last administered on 07/27/20at 08:21; Start 07/18/20 at 21:00 Albuterol/ Ipratropium (Duoneb) 3 ml RTQID NEB Last administered on 07/27/20at 07:28; Start 07/18/20 at 16:00 Piperacillin Sod/ Tazobactam Sod (Zosyn Per Pharmacy) 1 each PRN DAILY PRN MC SEE COMMENTS; Start 07/18/20 at 15:45; Stop 07/24/20 at 10:36; Status DC Sodium Chloride 1,000 ml @ 45 mls/hr [id number] IV Last administered on 07/24/20at 16:50; Start 07/18/20 at 17:00; Stop 07/26/20 at 12:33; Status DC Ondansetron HCl (Zofran) 4 mg PRN Q6HRS PRN IVP NAUSEA/VOMITING; Start 07/18/20 at 16:00 Al Hydroxide/Mg Hydroxide (Mylanta Plus Xs) 30 ml PRN Q3HRS PRN PO HEARTBURN / GAS; Start 07/18/20 at 16:00 Calcium Carbonate/ Glycine (Tums) 500 mg PRN Q3HRS PRN PO UPSET STOMACH; Start 07/18/20 at 16:00 Zolpidem Tartrate (Ambien) 5 mg PRN QHS PRN PO INSOMNIA, MAY REPEAT IN 1HR Last administered on 07/22/20at 21:53; Start 07/18/20 at 16:00 Acetaminophen/ Hydrocodone Bitart (Lortab 5/325) 1 tab PRN Q4HRS PRN PO MILD PAIN 1-3; Start 07/18/20 at 16:00 Acetaminophen (Tylenol) 650 mg PRN Q6HRS PRN PO Headaches, Temp > 101.5F; Start 07/18/20 at 16:00 Enoxaparin Sodium (Lovenox 40mg Syringe) 40 mg Q24H SQ Last administered on 07/18/20at 20:07; Start 07/18/20 at 21:00; Stop 07/19/20 at 15:38; Status DC Piperacillin Sod/ Tazobactam Sod 3.375 gm/Sodium Chloride 50 ml @ 100 mls/hr Q6HRS IV Last administered on 07/24/20at 06:05; Start 07/18/20 at 18:00; Stop 07/24/20 at 10:36; Status DC Labetalol HCl (Normodyne Iv Push) 20 mg PRN Q2HR PRN IVP HYPERTENSION Last administered on 07/27/20at 04:14; Start 07/20/20 at 03:30 Nystatin (Nystop) 1 carmen BID TP Last administered on 07/27/20at 08:37; Start 07/22/20 at 00:00 Lisinopril (Prinivil) 2.5 mg BID PO Last administered on 07/27/20at 08:21; Start 07/23/20 at 12:00 Hydralazine HCl (Apresoline) 10 mg TID PO Last administered on 07/27/20at 08:22; Start 07/26/20 at 14:00 Active Scripts Active Bisacodyl 10 Mg Supp.rect 10 Mg SC PRN DAILY PRN 30 Days [place] Saline Nasal Gel (Sodium Chloride/Aloe Vera) 14.1 Gm Gel..gram. 1 Carmen NS PRN DAILY PRN 30 Days Fluticasone Propionate Nasal [place] (Fluticasone Propionate) 16 Gm [place].susp 2 [place] NS QHS 30 Days Amlodipine Besylate 10 Mg Tablet 10 Mg PO DAILY 30 Days Reported Zofran (Ondansetron Hcl) 4 Mg Tablet 1 Tab PO Q6HRS Acetaminophen 325 Mg Tablet 650 Mg PO PRN Q6HRS PRN Combivent Respimat Inhal (Ipratropium/Albuterol Sulfate) 4 Gm Aer.w.adap 2 Inh IH QID Latuda (Lurasidone Hcl) 20 Mg Tablet 1 Tab PO DAILY 30 Days Zoloft (Sertraline Hcl) 25 Mg Tablet 1 Tab PO DAILY Nystatin 15 Gm Powder 1 Carmen TP PRN PRN 7 Days apply to affected area(s) Miralax (Polyethylene Glycol 3350) 17 Gm Powd.pack 1 Packet PO PRN Q24HRS PRN 2 Days dissolve in water Miralax (Polyethylene Glycol 3350) 17 Gm Powd.pack 1 Packet PO QMWF 2 Days dissolve in water Depakote Er (Divalproex Sodium) 500 Mg Tab.er.24h 3 Tab PO QHS Mylanta Maximum Strength Liq (Mag Hydrox/Aluminum Hyd/Simeth) 355 Ml Oral.susp 30 Ml PO PRN Q4HRS PRN Risperdal Consta (Risperidone Microspheres) 37.5 Mg/2 Ml Disp.syrin 50 Mg IM Q2WKS Topamax (Topiramate) 100 Mg Tablet 1 Tab PO BID Risperdal (Risperidone) 4 Mg Tablet 1 Tab PO BID Milk Of Magnesia (Magnesium Hydroxide) 400 Mg/5 Ml Oral.susp 30 Ml PO DAILY PRN Anti-Diarrhea (Loperamide Hcl) 2 Mg Tablet 2 Mg PO PRN Levothyroxine Sodium 75 Mcg Tablet 1 Tab PO DAILY Aspirin 81 Mg Tab.chew 1 Tab PO DAILY Vitals/I & O Vital Sign - Last 24 Hours 07/26/20 07/26/20 07/26/20 07/26/20 10:31 11:34 13:20 14:39 Temp 97.9 98.5 97.9 98.5 Pulse 73 73 71 Resp 18 18 B/P (MAP) 188/72 (110) 188/72 129/65 (86) Pulse Ox 100 94 97 O2 Delivery Nasal Cannula Room Air Room Air O2 Flow Rate 3.0 07/26/20 07/26/20 07/26/20 07/26/20 15:58 19:35 19:45 19:56 Temp 98.6 98.6 Pulse 75 Resp 24 B/P (MAP) 194/82 (119) Pulse Ox 98 100 100 O2 Delivery Room Air BiPAP/CPAP BiPAP/CPAP Bi-pap 07/26/20 07/26/20 07/26/20 07/26/20 20:21 20:21 22:41 22:48 Temp 98.6 98.6 Pulse 75 75 77 77 Resp 16 B/P (MAP) 194/82 194/82 200/94 (129) 200/94 Pulse Ox 94 O2 Delivery Nasal Cannula 07/27/20 07/27/20 07/27/20 07/27/20 01:14 03:00 04:14 04:40 Temp 98.1 98.1 Pulse 71 71 Resp 24 B/P (MAP) 180/69 (106) 180/69 Pulse Ox 100 100 100 O2 Delivery BiPAP/CPAP BiPAP/CPAP BiPAP/CPAP 07/27/20 07/27/20 07/27/20 07/27/20 07:00 07:30 07:36 08:21 Temp 97.6 97.6 Pulse 79 79 Resp 24 B/P (MAP) 191/92 (125) 191/ Pulse Ox 98 98 O2 Delivery Room Air Nasal Cannula Room Air O2 Flow Rate 1.0 07/27/20 07/27/20 08:21 08:22 Pulse 79 79 B/P (MAP) 191/92 191/92 Intake and Output 07/26/20 07/26/20 07/27/20 15:00 23:00 07:00 Intake Total 450 ml 170 ml 150 ml Output Total 600 ml 800 ml Balance 450 ml -430 ml -650 ml Justicifation of Admission Dx: Justifications for Admission: Justification of Admission Dx: Yes Altered Mental Status: Altered Mental Status ROGER ALVARADO MD Jul 27, 2020 10:20
[2020-07-27] MEDS ORDERED: LISINOPRIL 5 MG TABLET. PO SCH (10:30)
[2020-07-27 10:45] VITALS: BP 144/63
--- NOTE | 2020-07-27 11:24 | PDOC3 ---
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 Cardiomegaly with increased bilateral pulmonary opacities and small pleural effusions. // could reflect pulmonary edema vs multifocal pneumonia. BiPAP at nighttime and p.r.n. during the day. Avoid any sedatives. Continue empiric antibiotics. SEVERE, PROFOUND thrombocytopenia PLTS 15K 2 , hematology following ,, thrombocytopenia is most likely reactive secondary to acute illness given normal peripheral smear and haptoglobin, NOW IMPROVED, will likely resolve uncontrolled htn 2, c diff neg Plan: Multiple previous admissions for syncope with psychiatric components over the past months, not requiring antibiotics. HCAP iv zosyn d/c Suspect vasovagal syncope. She has had 3 prior admissions over the past year for similar symptoms, most recently on 06/21/2020. She was recommended outpatient loop recorder. Consultations placed to neurology She has history of chronic leukopenia, previously evaluated by Dr. Calderon with Hematology/Oncology. However she did not follow-up with outpatient work- up., needs BM BX OUTPT Baseline creatinine 1.6 with baseline GFR around 39.8 consistent with CKD 3b IV normal saline Calcium carbonate 3 times daily with meals Resume home medications FEN - Cardiac diet PPX - Lovenox FULL CODE Dispo - inpatient for above heme consult nutrition consult cxr 2-26 reviewed begin hydralazine 25 mg po tid 2-28 d/w rn begin d/c planning if BP CONTROLLED 2-28 d/c planning 33 min History of Present Illness History of Present Illness Patient is a 60-year-old female who is well-known to our service who presents from [facility] by EMS as a code stroke. Per EMS report patient with walking when she suddenly fell onto padded chairs and became unresponsive. Upon EMS arrival she was nodding her head and moaning, with right-sided weakness. Symptoms resolved upon arrival to ED and she was without any focal neurologic deficits. Code stroke initially activated, but after discussion with Dr. Juarez, TPA was not given. Chest x-ray on admission showed faint patchy opacity at the right lung base, consistent with pneumonia. History was obtained through chart review secondary to patient's clinical condition. Will admit patient for further medical management. 07/19: Patient somnolent, difficult to arouse. Denies any questions. Afebrile. Discussed with Dr. Juarez, risks exceed benefit for MRI under general anesthesia. No additional neurological studies needed. Continue treatment for HCAP. Platelets 28, will hold Lovenox. Initiate SCDs. ABG obtained by RT showed elevated PCO2 and concern for CO2 narcosis. Will place on BiPAP and consult pulmonology. 07/20: ABG yesterday showed significant hypercapnia, discussed with RT. Place patient on BiPAP overnight with improvement in PCO2. Consultation was placed to pulmonology. Platelet count 20 today, will hold VTE prophylaxis. She has a noted history of pancytopenia. Procalcitonin mildly elevated. Continue antibiotic treatment for HCAP. She continues to improve on BiPAP she [facility] next week to finish oral antibiotic treatment outpatient. 2-23 PLt'S remain critically low, hematology consulted Place patient on BiPAP overnight with improvement in PCO2. Consultation pulmonology., hematology , neurology Cannot exclude the possibility of seizure.neurology doubts this is likely CT head with no evidence of any ischemic or hemorrhagic stroke. Not on narcotics. 2-24 PLt'S remain critically low, hematology consulted BiPAP overnight with improvement in PCO2. Consultation pulmonology., hematology , neurology Cannot exclude the possibility of seizure.neurology doubts this is likely CT head with no evidence of any ischemic or hemorrhagic stroke. CBC PENDING TODAY 26 min pt exam, chart review, > 50% of time spent with exam, chart review, pt care coordination D/W RN 2- PLt'S remain critically low, hematology consulted BiPAP overnight with improvement in PCO2. Consultation pulmonology., hematology , neurology Cannot exclude the possibility of seizure.neurology doubts this is likely CT head with no evidence of any ischemic or hemorrhagic stroke. CBC PENDING TODAY 28 min pt exam, chart review, > 50% of time spent with exam, chart review, pt care coordination 07-26 PLt'S remain low, 55 K improving hematology consulted BiPAP overnight with improvement in PCO2. Consultation pulmonology., hematology , neurology (Cannot exclude the possibility of seizure.neurology doubts this is likely) CT head with no evidence of any ischemic or hemorrhagic stroke. 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 Consultation pulmonology., hematology , neurology (Cannot exclude the possibility of seizure.neurology doubts this is likely) CT head with no evidence of any ischemic or hemorrhagic stroke. 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 General: Somnolent, uncooperative. No acute distress lying in bed on bipap HEENT: PERRLA, EOMI Lungs: Decreased breath sounds bilaterally. Normal air movement Heart: RRR, no murmurs Cardiovascular: S1, S2 Abdomen: Normal bowel sounds, Soft, No tenderness Extremities: 1+ edema bilateral lower extremities. No clubbing, No cyanosis Skin: No rashes, No significant lesion Neuro: normal tone, General: Alert, Cooperative, No acute distress Heart: Regular rate Lungs: Clear, Other (diminished) Abdomen: Normal bowel sounds, Soft, No tenderness Extremities: No clubbing, No cyanosis Skin: No rashes, No breakdown Assessment and Plan Assessmemt and Plan Problems Medical Problems: (1) PNA (pneumonia) Status: Acute FINAL DIAGNOSIS Problems Medical Problems: (1) PNA (pneumonia) Status: Acute Brief Hospital Course Ms. Guzman is a 60 old [sex] who presented with [ SYNCOPE, METABOLIC ENCEPHALOPATHY] CONDITION AT DISCHARGE: Improved Discharge Medications Current Medications Iohexol (Omnipaque 300 Mg/ml) 75 ml 1X ONCE IV Last administered on 07/18/20at 10:15; Start 07/18/20 at 10:15; Stop 07/18/20 at 10:16; Status DC Ceftriaxone Sodium (Rocephin) 1 gm 1X ONCE IVP Last administered on 07/18/20at 17:06; Start 07/18/20 at 12:00; Stop 07/18/20 at 12:01; Status DC Calcium Carbonate/ Glycine (Oscal) 500 mg TIDAFTMEAL PO Last administered on 07/27/20at 08:21; Start 07/18/20 at 18:00 Amlodipine Besylate (Norvasc) 10 mg DAILY PO Last administered on 07/27/20at 08:21; Start 07/19/20 at 09:00 Aspirin (Aspirin Chewable) 81 mg DAILY PO Last administered on 07/27/20at 08:22; Start 07/19/20 at 09:00 Bisacodyl (Dulcolax Supp) 10 mg PRN DAILY PRN AR CONSTIPATION; Start 07/18/20 at 15:45 Divalproex Sodium (Depakote Er) 1,500 mg QHS PO Last administered on 07/26/20at 20:22; Start 07/18/20 at 21:00 Fluticasone Propionate (Flonase) 2 spray QHS NS Last administered on 07/26/20at 20:20; Start 07/18/20 at 21:00 Levothyroxine Sodium (Synthroid) 75 mcg DAILY06 PO Last administered on 07/27/20at 05:18; Start 07/19/20 at 06:00 Polyethylene Glycol (miraLAX PACKET) 17 gm PRN Q24HRS PRN PO CONSTIPATION; Start 07/18/20 at 15:45 Sertraline HCl (Zoloft) 25 mg DAILY PO Last administered on 07/27/20at 08:22; Start 07/19/20 at 09:00 Topiramate (Topamax) 100 mg BID PO Last administered on 07/27/20at 08:21; Start 07/18/20 at 21:00 Albuterol/ Ipratropium (Duoneb) 3 ml RTQID NEB Last administered on 07/27/20at 11:12; Start 07/18/20 at 16:00 Piperacillin Sod/ Tazobactam Sod (Zosyn Per Pharmacy) 1 each PRN DAILY PRN MC SEE COMMENTS; Start 07/18/20 at 15:45; Stop 07/24/20 at 10:36; Status DC Sodium Chloride 1,000 ml @ 45 mls/hr [id number] IV Last administered on 07/24/20at 16:50; Start 07/18/20 at 17:00; Stop 07/26/20 at 12:33; Status DC Ondansetron HCl (Zofran) 4 mg PRN Q6HRS PRN IVP NAUSEA/VOMITING; Start 07/18/20 at 16:00 Al Hydroxide/Mg Hydroxide (Mylanta Plus Xs) 30 ml PRN Q3HRS PRN PO HEARTBURN / GAS; Start 07/18/20 at 16:00 Calcium Carbonate/ Glycine (Tums) 500 mg PRN Q3HRS PRN PO UPSET STOMACH; Start 07/18/20 at 16:00 Zolpidem Tartrate (Ambien) 5 mg PRN QHS PRN PO INSOMNIA, MAY REPEAT IN 1HR Last administered on 07/22/20at 21:53; Start 07/18/20 at 16:00 Acetaminophen/ Hydrocodone Bitart (Lortab 5/325) 1 tab PRN Q4HRS PRN PO MILD PAIN 1-3; Start 07/18/20 at 16:00 Acetaminophen (Tylenol) 650 mg PRN Q6HRS PRN PO Headaches, Temp > 101.5F; Start 07/18/20 at 16:00 Enoxaparin Sodium (Lovenox 40mg Syringe) 40 mg Q24H SQ Last administered on 07/18/20at 20:07; Start 07/18/20 at 21:00; Stop 07/19/20 at 15:38; Status DC Piperacillin Sod/ Tazobactam Sod 3.375 gm/Sodium Chloride 50 ml @ 100 mls/hr Q6HRS IV Last administered on 07/24/20at 06:05; Start 07/18/20 at 18:00; Stop 07/24/20 at 10:36; Status DC Labetalol HCl (Normodyne Iv Push) 20 mg PRN Q2HR PRN IVP HYPERTENSION Last administered on 07/27/20at 04:14; Start 07/20/20 at 03:30 Nystatin (Nystop) 1 carmen BID TP Last administered on 07/27/20at 08:37; Start 07/22/20 at 00:00 Lisinopril (Prinivil) 2.5 mg BID PO Last administered on 07/27/20at 08:21; Start 07/23/20 at 12:00; Stop 07/27/20 at 10:22; Status DC Hydralazine HCl (Apresoline) 10 mg TID PO Last administered on 07/27/20at 08:22; Start 07/26/20 at 14:00; Stop 07/27/20 at 10:21; Status DC Hydralazine HCl (Apresoline) 25 mg TID PO ; Start 07/27/20 at 14:00 Lisinopril (Prinivil) 10 mg BID PO ; Start 07/27/20 at 10:30 Active Scripts Active Bisacodyl 10 Mg Supp.rect 10 Mg AR PRN DAILY PRN 30 Days [place] Saline Nasal Gel (Sodium Chloride/Aloe Vera) 14.1 Gm Gel..gram. 1 Carmen NS PRN DAILY PRN 30 Days Fluticasone Propionate Nasal [place] (Fluticasone Propionate) 16 Gm [place].susp 2 [place] NS QHS 30 Days Amlodipine Besylate 10 Mg Tablet 10 Mg PO DAILY 30 Days Reported Zofran (Ondansetron Hcl) 4 Mg Tablet 1 Tab PO Q6HRS Acetaminophen 325 Mg Tablet 650 Mg PO PRN Q6HRS PRN Combivent Respimat Inhal (Ipratropium/Albuterol Sulfate) 4 Gm Aer.w.adap 2 Inh IH QID Latuda (Lurasidone Hcl) 20 Mg Tablet 1 Tab PO DAILY 30 Days Zoloft (Sertraline Hcl) 25 Mg Tablet 1 Tab PO DAILY Nystatin 15 Gm Powder 1 Carmen TP PRN PRN 7 Days apply to affected area(s) Miralax (Polyethylene Glycol 3350) 17 Gm Powd.pack 1 Packet PO PRN Q24HRS PRN 2 Days dissolve in water Miralax (Polyethylene Glycol 3350) 17 Gm Powd.pack 1 Packet PO QMWF 2 Days dissolve in water Depakote Er (Divalproex Sodium) 500 Mg Tab.er.24h 3 Tab PO QHS Mylanta Maximum Strength Liq (Mag Hydrox/Aluminum Hyd/Simeth) 355 Ml Oral.susp 30 Ml PO PRN Q4HRS PRN Risperdal Consta (Risperidone Microspheres) 37.5 Mg/2 Ml Disp.syrin 50 Mg IM Q2WKS Topamax (Topiramate) 100 Mg Tablet 1 Tab PO BID Risperdal (Risperidone) 4 Mg Tablet 1 Tab PO BID Milk Of Magnesia (Magnesium Hydroxide) 400 Mg/5 Ml Oral.susp 30 Ml PO DAILY PRN Anti-Diarrhea (Loperamide Hcl) 2 Mg Tablet 2 Mg PO PRN Levothyroxine Sodium 75 Mcg Tablet 1 Tab PO DAILY Aspirin 81 Mg Tab.chew 1 Tab PO DAILY Vital Signs Vital Signs Date Time Temp Pulse Resp B/P (MAP) Pulse Ox O2 Delivery O2 Flow Rate FiO2 07/27/20 11:14 97 Room Air 07/27/20 10:45 97.5 77 24 144/63 (90) 97.5 07/27/20 07:30 1.0 Labs Laboratory Tests Test 07/25/20 12:00 07/25/20 21:15 07/26/20 06:40 07/26/20 09:16 White Blood Count 1.9 x10^3/uL (4.0-11.0) 2.2 x10^3/uL (4.0-11.0) Red Blood Count 2.39 x10^6/uL (3.50-5.40) 3.33 x10^6/uL (3.50-5.40) Hemoglobin 6.4 g/dL (12.0-15.5) 7.8 g/dL (12.0-15.5) 9.1 g/dL (12.0-15.5) Hematocrit 20.6 % (36.0-47.0) 24.9 % (36.0-47.0) 28.9 % (36.0-47.0) Mean Corpuscular Volume 86 fL (79-100) 87 fL (79-100) Mean Corpuscular Hemoglobin 27 pg (25-35) 27 pg (25-35) Mean Corpuscular Hemoglobin Concent 31 g/dL (31-37) 31 g/dL (31-37) 32 g/dL (31-37) Red Cell Distribution Width 21.4 % (11.5-14.5) 20.3 % (11.5-14.5) Platelet Count 51 x10^3/uL (140-400) 55 x10^3/uL (140-400) Neutrophils (%) (Auto) 37 % (31-73) 35 % (31-73) Lymphocytes (%) (Auto) 43 % (24-48) 50 % (24-48) Monocytes (%) (Auto) 19 % (0-9) 15 % (0-9) Eosinophils (%) (Auto) 0 % (0-3) 0 % (0-3) Basophils (%) (Auto) 1 % (0-3) 1 % (0-3) Neutrophils # (Auto) 0.7 x10^3/uL (1.8-7.7) 0.8 x10^3/uL (1.8-7.7) Lymphocytes # (Auto) 0.8 x10^3/uL (1.0-4.8) 1.1 x10^3/uL (1.0-4.8) Monocytes # (Auto) 0.4 x10^3/uL (0.0-1.1) 0.3 x10^3/uL (0.0-1.1) Eosinophils # (Auto) 0.0 x10^3/uL (0.0-0.7) 0.0 x10^3/uL (0.0-0.7) Basophils # (Auto) 0.0 x10^3/uL (0.0-0.2) 0.0 x10^3/uL (0.0-0.2) Sodium Level 143 mmol/L (136-145) Potassium Level 4.3 mmol/L (3.5-5.1) Chloride Level 114 mmol/L (98-107) Carbon Dioxide Level 23 mmol/L (21-32) Anion Gap 6 (6-14) Blood Urea Nitrogen 14 mg/dL (7-20) Creatinine 1.5 mg/dL (0.6-1.0) Estimated GFR (Cockcroft-Gault) 42.9 Glucose Level 81 mg/dL (70-99) Calcium Level 9.5 mg/dL (8.5-10.1) Allergies Allergies Coded Allergies Type Severity Reaction Last Updated Verified haloperidol Allergy Intermediate 06/02/20 Yes iron dextran complex Allergy Intermediate 06/02/20 Yes Disposition/Orders: Other (D/C TO SNF) Justicifation of Admission Dx: Justifications for Admission: Justification of Admission Dx: Yes Altered Mental Status: Altered Mental Status ROGER ALVARADO MD Jul 27, 2020 11:24
[2020-07-27] MEDS ORDERED: LISI-517 PO (11:31)
[2020-07-27] MEDS ORDERED: CALC200T23 PO (11:31)
[2020-07-27] MEDS ORDERED: HYDR-2868 PO (11:31)
[2020-07-27] MEDS ORDERED: CALC500T14 PO (11:31)
--- NOTE | 2020-07-27 11:32 | SNU/HH DC ---
DISCHARGE ORDERS DISCHARGE INFORMATION: FINAL DIAGNOSIS Problems Medical Problems: (1) PNA (pneumonia) Status: Acute CONDITION ON DISCHARGE: Stable CODE STATUS: Code Status: Full RESIDENTIAL: SNF STAY <30 DAYS: Yes HOSPICE: HOSPICE: No HOSPICE EVAL & TREAT: No LTAC: ADMIT TO LTAC: No POST DISCHARGE ORDERS: ACTIVITY ORDERS: Activity as tolerated WEIGHT BEARING STATUS: As tolerated DIET AFTER DISCHARGE: Cardiac WOUND/INCISION CARE: No wound care needed CHECKS AFTER DISCHARGE: CHECKS AFTER DISCHARGE: Check blood press - daily, Check your Temp as needed, Weigh Yourself Daily FOLLOW-UP: PHYSICIAN FOLLOW-UP: pcp at [facility] one day ADDITIONAL FOLLOW-UP: hematology 2 weeks LAB ORDERS FOR FOLLOW-UP: cbc with diff twice a week x 2 weeks TREATMENT/EQUIPMENT ORDERS: ADAPTIVE EQUIPMENT NEEDED: None, Front wheeled walker Physical Therapy For: Evalulation/Treatment Occupational Therapy For: Evaluation/Treatment Speech Language Pathology For: Evaluation/Treatment DISCHARGE MEDICATIONS: Home Meds Active Scripts Calcium Carbonate (CALCIUM CARBONATE) 200 Mg Tab.chew, 500 MG PO PRN Q3HRS PRN for UPSET STOMACH for 30 Days, #100 TAB.CHEW Prov:ROGER ALVARADO MD 07/27/20 Calcium Carbonate (OYSTER SHELL CALCIUM) 500 Mg Tablet, 500 MG PO TIDAFTMEAL for bone health for 14 Days, #42 TAB Prov:ROGER ALVARADO MD 07/27/20 Lisinopril (LISINOPRIL) 5 Mg Tablet, 10 MG PO BID for blood pressure for 30 Days, #120 TAB Prov:ROGER ALVARADO MD 07/27/20 Hydralazine Hcl (HYDRALAZINE HCL) 25 Mg Tablet, 25 MG PO TID for blood pressure for 30 Days, #90 TAB Prov:ROGER ALVARADO MD 07/27/20 Bisacodyl (BISACODYL) 10 Mg Supp.rect, 10 MG AR PRN DAILY PRN for CONSTIPATION for 30 Days, #14 SUPP.RECT Prov:ROGER ALVARADO MD 06/25/20 Sodium Chloride/Aloe Vera (AYR SALINE NASAL GEL) 14.1 Gm Gel..gram., 1 REHAN NS PRN DAILY PRN for NASAL CONGESTION for 30 Days, #1 EACH Prov:ROGER ALVARADO MD 06/25/20 Fluticasone Propionate (FLUTICASONE PROPIONATE NASAL SPRAY) 16 Gm [place].susp, 2 SPRAY NS QHS for NASAL CONGESTION for 30 Days, #1 SPRAY Prov:ROGER ALVARADO MD 06/25/20 Amlodipine Besylate (AMLODIPINE BESYLATE) 10 Mg Tablet, 10 MG PO DAILY for BLOOD PRESSURE for 30 Days, #30 TAB Prov:ROGER ALVARADO MD 06/25/20 Reported Medications Ondansetron Hcl (ZOFRAN) 4 Mg Tablet, 1 TAB PO Q6HRS for nausea, #20 TAB 06/21/20 Acetaminophen (ACETAMINOPHEN) 325 Mg Tablet, 650 MG PO PRN Q6HRS PRN for PAIN, TAB 06/02/20 Ipratropium/Albuterol Sulfate (COMBIVENT RESPIMAT INHAL) 4 Gm Aer.w.adap, 2 INH IH QID for Shortness of breath, INHALER 05/24/20 Sertraline Hcl (ZOLOFT) 25 Mg Tablet, 1 TAB PO DAILY for major depressive disorder, #30 TAB 2 Refills 11/09/19 Nystatin (NYSTATIN) 15 Gm Powder, 1 REHAN TP PRN PRN for candidiasis for 7 Days, #1 BOTTLE 0 Refills apply to affected area(s) 11/09/19 Polyethylene Glycol 3350 (MIRALAX) 17 Gm Powd.pack, 1 PACKET PO PRN Q24HRS PRN for CONSTIPATION for 2 Days, PACKET 0 Refills dissolve in water 11/09/19 Divalproex Sodium (DEPAKOTE ER) 500 Mg Tab.er.24h, 3 TAB PO QHS for schizoaffective disorder, #90 TAB 2 Refills 11/09/19 Mag Hydrox/Aluminum Hyd/Simeth (Mylanta Maximum Strength Liq) 355 Ml Oral.susp, 30 ML PO PRN Q4HRS PRN for HEARTBURN / GAS, MISC 11/09/19 Risperidone Microspheres (RISPERDAL CONSTA) 37.5 Mg/2 Ml Disp.syrin, 50 MG IM Q2WKS for schizoaffective disorder, SYR 01/03/17 Topiramate (TOPAMAX) 100 Mg Tablet, 1 TAB PO BID, #60 TAB 1 Refill 01/03/17 Magnesium Hydroxide (MILK OF MAGNESIA) 400 Mg/5 Ml Oral.susp, 30 ML PO DAILY PRN for CONSTIPATION, MISC 01/03/17 Loperamide Hcl (ANTI-DIARRHEA) 2 Mg Tablet, 2 MG PO PRN for DIARRHEA, TAB 01/03/17 Levothyroxine Sodium (LEVOTHYROXINE SODIUM) 75 Mcg Tablet, 1 TAB PO DAILY, #30 TAB 5 Refills 01/03/17 Aspirin (ASPIRIN) 81 Mg Tab.chew, 1 TAB PO DAILY, #30 TAB 3 Refills 01/03/17 Discontinued Reported Medications Lurasidone Hcl (LATUDA) 20 Mg Tablet, 1 TAB PO DAILY for Schizoaffective disorder for 30 Days, #30 TAB 0 Refills 05/24/20 Polyethylene Glycol 3350 (MIRALAX) 17 Gm Powd.pack, 1 PACKET PO QMWF for constipation for 2 Days, #2 PACKET 0 Refills dissolve in water 11/09/19 Risperidone (RISPERDAL) 4 Mg Tablet, 1 TAB PO BID, #30 TAB 01/03/17 ROGER ALVARADO MD Jul 27, 2020 11:32
[2020-07-27 11:48] VITALS: BP 144/63
[2020-07-27 11:58] LABS: BASO % 0 % (0-3); EOS % 0 % (0-3); HEMATOCRIT 24.5 % (36.0-47.0); HEMOGLOBIN 7.9 g/dL (12.0-15.5); LYMPH # 0.9 x10^3/uL (1.0-4.8); LYMPH % 40 % (24-48); MEAN CORPUSCULAR HEMOGLOBIN 28 pg (25-35); MEAN CORPUSCULAR HGB CONC 32 g/dL (31-37); MEAN CORPUSCULAR VOLUME 86 fL (79-100); MONO # 0.3 x10^3/uL (0.0-1.1); MONO % 14 % (0-9); NEUT % 45 % (31-73); PLATELET COUNT 52 x10^3/uL (140-400); RED BLOOD COUNT 2.85 x10^6/uL (3.50-5.40); RED CELL DISTRIBUTION WIDTH 20.2 % (11.5-14.5); WHITE BLOOD COUNT 2.3 x10^3/uL (4.0-11.0)
[2020-07-27 12:05] LABS: CALCIUM 9.1 mg/dL (8.5-10.1); CREATININE 1.6 mg/dL (0.6-1.0); GFR 39.8; POTASSIUM 4.3 mmol/L (3.5-5.1)
--- NOTE | 2020-07-27 13:20 | NUR ---
Discharge Note: AVI VILLEGAS Discharge instructions and discharge home medications reviewed with Other facility and a copy given. All questions have been answered and understanding verbalized. The following instructions and handouts were given: Education regarding new medication and follow ups sent with ambulance personel. Discontinued lines and drains: Iv removed. Patient discharged [place]. Report given to PRERNA Casanova.
[2020-07-27] MEDS ORDERED: hydrALAZINE 25 MG TABLET PO SCH (14:00)
== END 2020-07-27 13:10 | DRG 177 ==
LOC: ER 10:07 → 2 NORTH 14:40
PROVIDERS: ADMIT Family Medicine; ATTEND Family Medicine
PROC: 5A09357 Assistance with Respiratory Ventilation, Less than 24 Consecutive Hours, Continuous Positive Airway Pressure (ICD-10-PCS; 2020-07-19)
PROC: 5A09357 Assistance with Respiratory Ventilation, Less than 24 Consecutive Hours, Continuous Positive Airway Pressure (ICD-10-PCS; 2020-07-20)
PROC: 5A09357 Assistance with Respiratory Ventilation, Less than 24 Consecutive Hours, Continuous Positive Airway Pressure (ICD-10-PCS; 2020-07-21)
PROC: 5A09357 Assistance with Respiratory Ventilation, Less than 24 Consecutive Hours, Continuous Positive Airway Pressure (ICD-10-PCS; 2020-07-22)
PROC: 5A09357 Assistance with Respiratory Ventilation, Less than 24 Consecutive Hours, Continuous Positive Airway Pressure (ICD-10-PCS; 2020-07-23)
PROC: 5A09357 Assistance with Respiratory Ventilation, Less than 24 Consecutive Hours, Continuous Positive Airway Pressure (ICD-10-PCS; 2020-07-24)
PROC: 30233R1 Transfusion of Nonautologous Platelets into Peripheral Vein, Percutaneous Approach (ICD-10-PCS; principal; 2020-07-25)
PROC: 30233N1 Transfusion of Nonautologous Red Blood Cells into Peripheral Vein, Percutaneous Approach (ICD-10-PCS; 2020-07-25)
PROC: 5A09357 Assistance with Respiratory Ventilation, Less than 24 Consecutive Hours, Continuous Positive Airway Pressure (ICD-10-PCS; 2020-07-25)
PROC: 5A09357 Assistance with Respiratory Ventilation, Less than 24 Consecutive Hours, Continuous Positive Airway Pressure (ICD-10-PCS; 2020-07-26)
PROC: 5A09357 Assistance with Respiratory Ventilation, Less than 24 Consecutive Hours, Continuous Positive Airway Pressure (ICD-10-PCS; 2020-07-27)
DX: J15.6 Pneumonia due to other Gram-negative bacteria (principal); E43 Unspecified severe protein-calorie malnutrition; J96.02 Acute respiratory failure with hypercapnia; G93.41 Metabolic encephalopathy; N17.0 Acute kidney failure with tubular necrosis; D61.818 Other pancytopenia; E87.2 Acidosis; G25.9 Extrapyramidal and movement disorder, unspecified; G45.9 Transient cerebral ischemic attack, unspecified; N18.4 Chronic kidney disease, stage 4 (severe); E03.9 Hypothyroidism, unspecified; E11.22 Type 2 diabetes mellitus with diabetic chronic kidney disease; E78.00 Pure hypercholesterolemia, unspecified; E78.5 Hyperlipidemia, unspecified; E83.51 Hypocalcemia; F20.9 Schizophrenia, unspecified; F31.9 Bipolar disorder, unspecified; F79 Unspecified intellectual disabilities; G40.909 Epilepsy, unspecified, not intractable, without status epilepticus; G47.33 Obstructive sleep apnea (adult) (pediatric); H50.9 Unspecified strabismus; H53.2 Diplopia; I12.9 Hypertensive chronic kidney disease with stage 1 through stage 4 chronic kidney disease, or unspecified chronic kidney disease; J45.909 Unspecified asthma, uncomplicated; R29.700 NIHSS score 0; Y95 Nosocomial condition; Z82.49 Family history of ischemic heart disease and other diseases of the circulatory system; Z87.891 Personal history of nicotine dependence; F41.9 Anxiety disorder, unspecified; K21.9 Gastro-esophageal reflux disease without esophagitis; Z68.38 Body mass index [BMI] 38.0-38.9, adult; Z88.8 Allergy status to other drugs, medicaments and biological substances; W18.39XA Other fall on same level, initial encounter; Y93.89 Activity, other specified; Y92.89 Other specified places as the place of occurrence of the external cause; Y99.8 Other external cause status
CPT/HCPCS: 36415; 36430; 36600; 70450; 71045; 80048; 80053; 81001; 82668; 82805; 82962; 83010; 83615; 84145; 84484; 85007; 85014; 85018; 85025; 85045; 85610; 85730; 86038; 86850; 86900; 86901; 86920; 87426; 87493; 93005; 94640; 94660; 94760; J0696; J1650; J2543; J3490; J7030; P9016; P9035; Q9967; U0003; 99285-25; G0378

== ENCOUNTER → 2020-09-02 | Outpatient (CLI) | payer MEDICAID ==
[2020-08-12 15:00] VITALS: BP 120/67
[~2020-09-02] MED LIST changes: +CALC200T23 PO; +CALC500T14 PO; +HYDR-2868 PO; +LISI-517 PO
[2020-09-02 13:46] LABS: BASO % 1 % (0-3); EOS % 0 % (0-3); HEMATOCRIT 33.8 % (36.0-47.0); HEMOGLOBIN 10.8 g/dL (12.0-15.5); LYMPH # 0.9 x10^3/uL (1.0-4.8); LYMPH % 65 % (24-48); MEAN CORPUSCULAR HEMOGLOBIN 27 pg (25-35); MEAN CORPUSCULAR HGB CONC 32 g/dL (31-37); MEAN CORPUSCULAR VOLUME 85 fL (79-100); MONO # 0.1 x10^3/uL (0.0-1.1); MONO % 6 % (0-9); NEUT # 0.4 x10^3/uL (1.8-7.7); NEUT % 28 % (31-73); PLATELET COUNT 85 x10^3/uL (140-400); RED BLOOD COUNT 3.99 x10^6/uL (3.50-5.40); RED CELL DISTRIBUTION WIDTH 18.4 % (11.5-14.5)
[2020-09-02 13:59] LABS: ANION GAP 8 (6-14); BLOOD UREA NITROGEN 12 mg/dL (7-20); BUN/CREATININE RATIO 7 (6-20); CALCIUM 8.6 mg/dL (8.5-10.1); CARBON DIOXIDE 26 mmol/L (21-32); CHLORIDE 107 mmol/L (98-107); CREATININE 1.8 mg/dL (0.6-1.0); GFR 34.7; GLUCOSE 97 mg/dL (70-99); POTASSIUM 3.4 mmol/L (3.5-5.1); SODIUM 141 mmol/L (136-145)
[2020-09-02 14:03] LABS: ALBUMIN 1.9 g/dL (3.4-5.0); ALBUMIN/GLOBULIN RATIO 0.4 (1.0-1.7); ALK PHOS 59 U/L (46-116); AST (SGOT) 12 U/L (15-37); TOTAL BILIRUBIN 0.2 mg/dL (0.2-1.0); TOTAL PROTEIN 7.2 g/dL (6.4-8.2); WHITE BLOOD COUNT 1.4 x10^3/uL (4.0-11.0)
[2020-09-02 14:22] LABS: ALT (SGPT) < 6 U/L (14-59)
== END ==
LOC: ONCLAB 12:35
PROVIDERS: ATTEND Internal Medicine Hematology & Oncology
DX: D61.818 Other pancytopenia (principal)
CPT/HCPCS: 36415; 80053; 85025

== ENCOUNTER → 2020-09-22 | Day surgery (SDC) | payer MEDICAID ==
[~2020-09-22] MED LIST changes: +IV RINGERS,LACTATED 1000ML 1,000 ML IV ONE; +IV RINGERS,LACTATED 1000ML 1,000 ML IV SCH; +PROPOFOL 10 MG/ML (20ML) VIAL. IV ONE
--- NOTE | 2020-09-22 13:36 | PDOC4 ---
PROCEDURE Procedure EGD/biopsies/dilation Indication: dysphagia Meds: per anesthesia Findings: E--Mild Shatzki's at 33cm. G--medium HH/antral erythema, biopsied. D--Normal to second portion. Dilated with 52 Bustillo, minimal resistance. Reggie. well. IMP: Shatzki's ring, dilated HH Antral erythema, biopsied REC: continue current meds, diet. Await path. F/u in 2 weeks. MUNA KAY MD Sep 22, 2020 13:36
[2020-09-22 14:05] VITALS: BP 124/71
--- NOTE | 2020-09-25 12:25 | PATHOLOGY ---
[facility] Accession Number: [id number] . 01 Material submitted: . stomach - ANTRUM BIOPSY. Modifiers: ANTRUM . 01 Clinical history: . DYSPHAGIA EGD POST-OP DIAGNOSIS: GASTRITIS . 02 Diagnosis: Stomach "antrum", biopsy: - Gastric antral mucosa with mild superficial chronic gastritis. - Negative for active inflammation, intestinal metaplasia, dysplasia, and malignancy. - Negative for Helicobacter pylori. (MLK:giovana; 09/25/2020) [facility] [place] 09/25/2020 1151 Local . 02 Electronically signed: . Clif Maria MD, Pathologist NPI- [id number] . 01 Gross description: . Received in formalin labeled "[place], Geri and antrum biopsy". Received is a sanford-saravia soft tissue fragment measuring 0.5 x 0.3 x 0.1 cm. Specimen is entirely submitted in cassette A1.([facility]; 09/23/2020) [facility] 09/25/2020 0707 Local . 02 Microscopic: . Immunohistochemical stain results (properly controlled): . Helicobacter pylori - Negative for organisms. . (MLK:giovana; 09/25/2020) . 02 Pathologist provided ICD-10: K29.50 . 02 CPT . 057155, [id number] Specimen Comment: A courtesy copy of this report has been sent to [phone], [phone] Specimen Comment: [id number] Specimen Comment: Report sent to / DR ZARAGOZA Specimen Comment: A duplicate report has been generated due to demographic updates. Performed at: 01 [facility] [address] [place] [address] [address], [place], [place] [id number] MD Kvng Sheikh MD Phone: [phone] Performed at: 02 [facility] [address] [place], [place] [id number] MD Anthony Ceja MD Phone: [phone]
== END | disposition home or self-care (01) ==
LOC: ENDOS 12:06
PROVIDERS: ATTEND Internal Medicine Gastroenterology
DX: R13.10 Dysphagia, unspecified (principal); K29.50 Unspecified chronic gastritis without bleeding; K31.89 Other diseases of stomach and duodenum; E78.00 Pure hypercholesterolemia, unspecified; I10 Essential (primary) hypertension; K21.9 Gastro-esophageal reflux disease without esophagitis; J45.909 Unspecified asthma, uncomplicated; E03.9 Hypothyroidism, unspecified; F41.9 Anxiety disorder, unspecified; F32.9 Major depressive disorder, single episode, unspecified; Z20.822 Contact with and (suspected) exposure to COVID-19; Z87.440 Personal history of urinary (tract) infections; Z79.82 Long term (current) use of aspirin; Z79.899 Other long term (current) drug therapy; Z91.041 Radiographic dye allergy status; Z88.8 Allergy status to other drugs, medicaments and biological substances; Z98.890 Other specified postprocedural states
CPT/HCPCS: 43239; 43450; 87426; 88305; 88342; J2704